=== PATIENT | male | born 1950 | race Caucasian/White ===

== ENCOUNTER 2016-03-12 13:34 | Inpatient (IN) ==
--- NOTE | 2016-03-12 14:39 | Emergency Department Note ---
Disposition Clinical Impression: Prostate cancer, UTI (urinary tract infection), Diabetes mellitus, Sepsis, History of renal stent, Anemia, Renal insufficiency, Kidney stones Disposition: Admitted As Inpatient Referrals: Starr Ramos CNP [Primary Care Provider] - Forms: ED Satisfaction Letter General Adult HPI - General Chief complaint: ED Nausea/Vomiting/Diarrhea Stated complaint: vomiting; cancer patient Time Seen by Provider: 03/12/16 14:37 Source: patient Limitations: no limitations - History of Present Illness HPI Narrative: 65-year-old male reports to the emergency department complaining of recurrent vomiting, and some diarrhea. His has had a similar illness. The patient has been diagnosed with prostate cancer, he had a recent TURP and bilateral kidney stents placed. The patient has had recurrent UTIs. He has had no vomiting of bloody or black material. There is no history of anticoagulant therapy at this time. He describes abdominal pain. There is no history of chest pain or shortness of breath or syncope. General weaknesses reported no difficulty moving the arms or legs independently, no history of headaches seizure or confusion or dysarthria. There is no history of acute back pain. There is no history of fall or injury. The patient has recently been treated for his prostate cancer medically, he has not had radiation therapy. Pain Scale: 0 - Related Data Home Medications Medication Instructions Recorded Confirmed L. Acidophilus/Pectin, [place] 1 cap PO DAILY 01/15/16 02/18/16 [Acidophilus Probiotic Capsule] Amlodipine [Norvasc] 5 mg PO DAILY 02/09/16 02/18/16 Omeprazole [PriLOSEC] 40 mg PO DAILY 02/18/16 02/18/16 Previous Rx's Medication Instructions Recorded Insulin ASPART [Novolog Flexpen] 10 unit SQ TID 30 Days 01/19/16 Insulin DETEMIR [Levemir] 30 unit SQ HS 30 Days 01/19/16 Levofloxacin [Levaquin] 500 mg PO DAILY #10 tablet 02/11/16 Metoclopramide [Reglan] 10 mg PO Q6HR PRN #60 [id number] 02/11/16 LORazepam [Ativan] 0.5 mg PO BID #60 tablet 02/18/16 Allergies Allergy/AdvReac Type Severity Reaction Status Date / Time No Known Allergies Allergy Verified 02/09/16 16:31 All systems ED: reviewed and negative except as stated. Past Medical History - Past Medical History Medical history: Reports: cancer, diabetes, hyperlipidemia, hypertension Surgical history: Reports: orthopedic, other, ureteral stent Psychiatric history: Reports: no psych history - Social History Smoking Status: Never smoker Smokeless Tobacco Status: No Alcohol use: Reports: none Drug use: Reports: none Physical Exam - General Limitations: no limitations General appearance: alert, other (Pale liane and tired-appearing male laying supine, he does follow basic commands appropriately and answers questions without evidence of confusion.) - Eye Eye exam: Present: normal appearance, PERRL, EOMI. Absent: scleral icterus, conjunctival injection - ENT ENT exam: mucous membranes dry, TM's normal bilaterally, normal external ear exam - Neck Neck exam: Present: normal inspection, full ROM, trachea midline - Respiratory Respiratory exam: Present: normal lung sounds bilaterally. Absent: respiratory distress - Abdominal Exam Abdominal exam: Present: soft. Absent: distention, guarding, rebound, rigidity , pulsatile mass Abdominal tenderness: Present: diffuse - Extremities Exam Extremities exam: Present: normal inspection, full ROM, normal capillary refill. Absent: tenderness, pedal edema, joint swelling, calf tenderness - Expanded Lower Extremity Exam Lower leg exam: Absent: Homans' sign Neurovascular/Tendon exam: Absent: motor deficit, sensory deficit, tendon deficit - Back Exam Back exam: Present: normal inspection, full ROM. Absent: tenderness, CVA tenderness (R), CVA tenderness (L), vertebral tenderness - Neurological Exam Neurological exam: Present: alert, oriented X3, CN II-XII intact. Absent: motor sensory deficit - Psychiatric Psychiatric exam: Present: normal affect, normal mood - Skin Skin exam: Present: warm, dry, intact, pallor. Absent: rash, cyanosis, diaphoresis, erythema, mottled Course Vital Signs Temperature 97.6 F 03/12/16 13:36 Pulse Rate 107 03/12/16 13:36 Respiratory Rate 20 03/12/16 13:36 Blood Pressure 135/83 03/12/16 13:36 O2 Sat by Pulse Oximetry 97 03/12/16 13:36 Temperature 97.6 F 03/12/16 13:36 Pulse Rate 88 03/12/16 18:16 Respiratory Rate 16 03/12/16 18:16 Blood Pressure 122/80 03/12/16 18:16 O2 Sat by Pulse Oximetry 97 03/12/16 18:16 Oxygen Delivery Oxygen Delivery Room Air Medical Decision Making - [facility] Narrative Medical decision making narrative: Patient has had vomiting and diarrhea, more vomiting however. Nonbloody. The patient's CT reveals bilateral urinary stents with what appears to be new left kidney hydronephrosis. His creatinine level slightly high but not markedly more elevated than baseline. The patient was tachycardic on arrival as well as tachypneic. He appears to have changes suggestive of urinary tract infection. He seems to meet sepsis criteria. IV fluids pain control measures and antiemetics were given in the ED. Antibiotics were also initiated. The patient describes new onset urinary discomfort and discoloration. He may have an element of pyelonephritis based on his symptomatology and radiographic and laboratory findings. He does have an elevated white blood cell count as well as a significantly elevated CRP. The patient has been vomiting, he may not tolerate outpatient antibiotic therapy. Based on his multiple comorbidities, acute presentation, meeting sepsis criteria, and questionable ability to tolerate by mouth antibiotics, in association with diabetes and ureteral stents , I think the patient would best be admitted to the hospital for further evaluation. I consulted with the hospitalist on-call. - Lab Data Lab results reviewed: Yes I reviewed the patient's lab results. Result diagrams: 03/12/16 14:46 03/12/16 14:46 Lab Results 03/12/16 03/12/16 03/12/16 Range/Units 14:46 14:46 14:46 WBC 14.0 H (4.3-11.1) K/mcL RBC 3.64 L (4.19-5.50) M/mcL Hgb 10.8 L (12.9-16.9) g/dL Hct 31.0 L (37.5-50.1) % MCV 85.2 D (83.0-100.0) fL MCH 29.7 (28.0-33.3) pg MCHC 34.8 (31.6-35.5) g/dL RDW 12.3 (11.5-14.5) % Plt Count 421 H (140-400) K/mcL MPV 8.7 L (9.4-12.4) fL Immature Gran % 0.8 (0-4) % Seg Neutrophils % 83.8 % Lymphocytes % 8.8 % Monocytes % 6.4 % Eosinophils % 0.0 % Basophils % 0.2 % Neutrophils # 11.8 H (1.6-8.9) K/mcL Lymphocytes # 1.2 (0.6-4.6) K/mcL Monocytes # 0.9 (0.0-1.3) K/mcL Eosinophils # 0.0 (0.0-0.6) K/mcL Basophils # 0.0 (0.0-0.2) K/mcL PT (9.4-12.1) Seconds INR APTT (26.0-36.0) Seconds Sodium 136 (136-145) mEq/L Potassium 3.3 L (3.5-4.5) mEq/L Chloride 102 (98-109) mEq/L Carbon Dioxide 19 (19-29) mEq/L BUN 22 (8-26) mg/dL Creatinine 1.91 H (0.72-1.25) mg/dL Est GFR ( Amer) 43 L (> 60) Est GFR (Non-Af Amer) 36 L (> 60) BUN/Creatinine Ratio 12 (6-26) Glucose 267 H (70-99) mg/dL Calculated Osmolality 295 (280-300) Lactic Acid 1.2 (0.5-2.2) mmol/L Calcium 8.9 (8.6-10.8) mg/dL Troponin I (0-0.03) ng/mL C-Reactive Protein (Less than 5) mg/L Lipase 34 (8-78) Units/L Beta-Hydroxybutyric Acd (0.02-0.27) mmol/L Urine Color (Yellow) Urine Clarity (Clear) Urine pH (5.0-8.0) pH Units Ur Specific [place] (1.010-1.025) Urine Protein (Neg-Trace) mg/dL Urine Glucose (UA) (Normal) mg/dL Urine Ketones (Negative) mg/dL Urine Blood (Negative) Urine Nitrite (Negative) Urine Bilirubin (Negative) Urine Urobilinogen (Normal) mg/dL Ur Leukocyte Esterase (Negative) Urine Microscopic RBC (0-3) per hpf Urine Microscopic WBC (0-3) per hpf Ur Squamous Epith Cells (None-Few) per lpf Urine Bacteria (None-Few) per hpf Urine Yeast (None Seen) per hpf Ur Culture Indicated? (NO) 03/12/16 03/12/16 03/12/16 Range/Units 14:46 14:46 14:46 WBC (4.3-11.1) K/mcL RBC (4.19-5.50) M/mcL Hgb (12.9-16.9) g/dL Hct (37.5-50.1) % MCV (83.0-100.0) fL MCH (28.0-33.3) pg MCHC (31.6-35.5) g/dL RDW (11.5-14.5) % Plt Count (140-400) K/mcL MPV (9.4-12.4) fL Immature Gran % (0-4) % Seg Neutrophils % % Lymphocytes % % Monocytes % % Eosinophils % % Basophils % % Neutrophils # (1.6-8.9) K/mcL Lymphocytes # (0.6-4.6) K/mcL Monocytes # (0.0-1.3) K/mcL Eosinophils # (0.0-0.6) K/mcL Basophils # (0.0-0.2) K/mcL PT 16.3 H (9.4-12.1) Seconds INR 1.5 APTT 36.7 H (26.0-36.0) Seconds Sodium (136-145) mEq/L Potassium (3.5-4.5) mEq/L Chloride (98-109) mEq/L Carbon Dioxide (19-29) mEq/L BUN (8-26) mg/dL Creatinine (0.72-1.25) mg/dL Est GFR ( Amer) (> 60) Est GFR (Non-Af Amer) (> 60) BUN/Creatinine Ratio (6-26) Glucose (70-99) mg/dL Calculated Osmolality (280-300) Lactic Acid (0.5-2.2) mmol/L Calcium (8.6-10.8) mg/dL Troponin I 0.01 (0-0.03) ng/mL C-Reactive Protein 212 H (Less than 5) mg/L Lipase (8-78) Units/L Beta-Hydroxybutyric Acd (0.02-0.27) mmol/L Urine Color (Yellow) Urine Clarity (Clear) Urine pH (5.0-8.0) pH Units Ur Specific [place] (1.010-1.025) Urine Protein (Neg-Trace) mg/dL Urine Glucose (UA) (Normal) mg/dL Urine Ketones (Negative) mg/dL Urine Blood (Negative) Urine Nitrite (Negative) Urine Bilirubin (Negative) Urine Urobilinogen (Normal) mg/dL Ur Leukocyte Esterase (Negative) Urine Microscopic RBC (0-3) per hpf Urine Microscopic WBC (0-3) per hpf Ur Squamous Epith Cells (None-Few) per lpf Urine Bacteria (None-Few) per hpf Urine Yeast (None Seen) per hpf Ur Culture Indicated? (NO) 03/12/16 03/12/16 Range/Units 14:46 15:22 WBC (4.3-11.1) K/mcL RBC (4.19-5.50) M/mcL Hgb (12.9-16.9) g/dL Hct (37.5-50.1) % MCV (83.0-100.0) fL MCH (28.0-33.3) pg MCHC (31.6-35.5) g/dL RDW (11.5-14.5) % Plt Count (140-400) K/mcL MPV (9.4-12.4) fL Immature Gran % (0-4) % Seg Neutrophils % % Lymphocytes % % Monocytes % % Eosinophils % % Basophils % % Neutrophils # (1.6-8.9) K/mcL Lymphocytes # (0.6-4.6) K/mcL Monocytes # (0.0-1.3) K/mcL Eosinophils # (0.0-0.6) K/mcL Basophils # (0.0-0.2) K/mcL PT (9.4-12.1) Seconds INR APTT (26.0-36.0) Seconds Sodium (136-145) mEq/L Potassium (3.5-4.5) mEq/L Chloride (98-109) mEq/L Carbon Dioxide (19-29) mEq/L BUN (8-26) mg/dL Creatinine (0.72-1.25) mg/dL Est GFR ( Amer) (> 60) Est GFR (Non-Af Amer) (> 60) BUN/Creatinine Ratio (6-26) Glucose (70-99) mg/dL Calculated Osmolality (280-300) Lactic Acid (0.5-2.2) mmol/L Calcium (8.6-10.8) mg/dL Troponin I (0-0.03) ng/mL C-Reactive Protein (Less than 5) mg/L Lipase (8-78) Units/L Beta-Hydroxybutyric Acd 0.98 H (0.02-0.27) mmol/L Urine Color Yellow (Yellow) Urine Clarity Clear (Clear) Urine pH 6.5 (5.0-8.0) pH Units Ur Specific [place] 1.025 (1.010-1.025) Urine Protein >=300 H (Neg-Trace) mg/dL Urine Glucose (UA) Normal (Normal) mg/dL Urine Ketones Negative (Negative) mg/dL Urine Blood Moderate H (Negative) Urine Nitrite Negative (Negative) Urine Bilirubin Negative (Negative) Urine Urobilinogen Normal (Normal) mg/dL Ur Leukocyte Esterase Small H (Negative) Urine Microscopic RBC 15-30 H (0-3) per hpf Urine Microscopic WBC 30-50 H (0-3) per hpf Ur Squamous Epith Cells Few (None-Few) per lpf Urine Bacteria Moderate H (None-Few) per hpf Urine Yeast Few H (None Seen) per hpf Ur Culture Indicated? YES A (NO) - Radiology Data Radiology results reviewed: Yes I reviewed the patient's radiology results.
[2016-03-12] MEDS ORDERED: 0.9 % Sodium Chloride 1,000 ML IVC ONE ×2 (14:40→17:25)
[2016-03-12] MEDS ORDERED: Ondansetron 4 MG/2 ML VIAL IVP ONE (14:49)
[2016-03-12 14:56] LABS: Basophils % 0.2 %; Hemoglobin 10.8 g/dL (12.9-16.9); Immature Granulocytes % 0.8 % (0-4); Lymphocytes # 1.2 K/mcL (0.6-4.6); Lymphocytes % 8.8 %; Mean Corpuscular HGB Conc 34.8 g/dL (31.6-35.5); Mean Corpuscular Hemoglobin 29.7 pg (28.0-33.3); Mean Platelet Volume 8.7 fL (9.4-12.4); Monocytes # 0.9 K/mcL (0.0-1.3); Monocytes % 6.4 %; Neutrophils # 11.8 K/mcL (1.6-8.9); Platelet Count 421 K/mcL (140-400); Red Blood Count 3.64 M/mcL (4.19-5.50); Red Cell Distribution Width 12.3 % (11.5-14.5); Segmented Neutrophils % 83.8 %
[2016-03-12 14:57] LABS: Mean Corpuscular Volume 85.2 fL (83.0-100.0)
[2016-03-12 15:11] LABS: Calcium 8.9 mg/dL (8.6-10.8); Potassium 3.3 mEq/L (3.5-4.5)
[2016-03-12 15:43] LABS: Bilirubin,Urine Negative (Negative); Blood,Urine Moderate (Negative); Clarity,Urine Clear (Clear); Color,Urine Yellow (Yellow); Glucose,Urine (UA) Normal (Normal); Ketones,Urine Negative (Negative); Leukocyte Esterase,Urine Small (Negative); Nitrite,Urine Negative (Negative); PH,Urine 6.5 pH Units (5.0-8.0); Protein,Urine >=300 mg/dL (Neg-Trace); Specific Gravity,Urine 1.025 (1.010-1.025); Urobilinogen,Urine Normal (Normal)
[2016-03-12 16:02] LABS: RBC,Urine 15-30 per hpf (0-3); Squamous Epithelial Cell,Urine Few per lpf (None-Few); WBC,Urine 30-50 per hpf (0-3)
[2016-03-12 16:03] LABS: Bacteria,Urine Moderate per hpf (None-Few); Yeast,Urine Few per hpf (None Seen)
[2016-03-12 16:14] LABS: Activated Partial Thrombo Time 36.7 Seconds (26.0-36.0); INR 1.5; Prothrombin Time 16.3 Seconds (9.4-12.1)
[2016-03-12] MEDS ORDERED: D5% in Water 1,000 ML IV PRN (20:32)
[2016-03-12] MEDS ORDERED: *HR* Dextrose 50 % in Water (Syg) 50 ML SYRINGE IVP PRN (20:32)
[2016-03-12] MEDS ORDERED: Dextrose Gel 15 GM PO PRN ×2 (20:32)
[2016-03-12] MEDS ORDERED: Acetaminophen 325 MG TABLET PO PRN (20:33)
[2016-03-12] MEDS ORDERED: *HR* Morphine 2 MG/ML SYRINGE IVP PRN (20:33)
[2016-03-12] MEDS ORDERED: Naloxone 0.4 MG/ML INJ IVP PRN (20:33)
--- NOTE | 2016-03-12 20:56 | Internal Med History&Physical ---
Date of Encounter: 03/12/16 Time of Encounter: 20:05 Internal Medicine - H&P: HPI Chief complaint: Weakness, diarrhea, urethral discharge, abdominal pain x 2-3 days Admitted From: Emergency Dept Plans for Post Hospital Care: Home History of present illness: Mr. Rivera is a 65 year old male 65-year-old male with medical history significant for prostate cancer with chronic urinary retention, urolithiasis s/ p bilateral ureteric stent, presents with 2-3 days of weakness, fatigue, poor appetite, he also reported abdominal pain, nausea, vomiting and diarrhea. His was sick of with a stomach bug just before that, she has since recovered. No fever. Diarrhea has since stopped. It was loose, non-bloody, non-mucoid. Abdominal pain was diffuse. reports he had some urethral discharge. General weaknesses reported, no falls, no history of headaches, seizure or confusion or no new-onset neurological symptoms. No rash. He reports a flu-like illness, however, no sore throat or cough. No CP or SOB. The patient has been diagnosed with prostate cancer, he had a recent TURP and bilateral kidney stents placed at [facility]. The patient has had recurrent UTIs. . Patient had history of acute retention with bladder spasm a couple of months ago, necessitating 5-day hospitalization. He has vague chronic lower back pain. There is no history of acute back pain. He is FULL CODE as per discussion, he nominates his , Gianna Rivera ([phone], ). Medical history: Reports: cancer, diabetes, hyperlipidemia, hypertension Surgical history: Reports: orthopedic, other, ureteral stent Psychiatric history: Reports: no psych history Smoking Status: Never smoker Smokeless Tobacco Status: No Alcohol use: Reports: none Drug use: Reports: none Family History: Father: prostate, DM2, brother: prostate cancer, daughter: COPD ROS: a 10-point ROS was performed, positives and relevant negatives are detailed , system-symptom not mentioned assumed negative unless otherwise stated. Vital Signs Temperature 97.6 F 03/12/16 13:36 Pulse Rate 107 03/12/16 13:36 Respiratory Rate 20 03/12/16 13:36 Blood Pressure 135/83 03/12/16 13:36 O2 Sat by Pulse Oximetry 97 03/12/16 13:36 Temperature 97.6 F 03/12/16 13:36 Pulse Rate 88 03/12/16 18:16 Respiratory Rate 16 03/12/16 18:16 Blood Pressure 122/80 03/12/16 18:16 O2 Sat by Pulse Oximetry 97 03/12/16 18:16 O/E: not in distress, ill looking, lethargic HEENT: Not pale, anicteric, afebrile, acyanotic, no JVD Chest: CTAB Heart/CVS: RRR, HS1/2, no murmur Abdomen: sift, non-tender, no masses [employer] ATTENDANT: AAO x 3, no gross focal neurological deficits, moves all limbs spontaneously. Skin: no active skin lesion Extremities: no normal pedal pulses, no calf tenderness, no pedal edema Lab Results 03/12/16 03/12/16 03/12/16 Range/Units 14:46 14:46 14:46 WBC 14.0 H (4.3-11.1) K/mcL RBC 3.64 L (4.19-5.50) M/mcL Hgb 10.8 L (12.9-16.9) g/dL Hct 31.0 L (37.5-50.1) % MCV 85.2 D (83.0-100.0) fL MCH 29.7 (28.0-33.3) pg MCHC 34.8 (31.6-35.5) g/dL RDW 12.3 (11.5-14.5) % Plt Count 421 H (140-400) K/mcL MPV 8.7 L (9.4-12.4) fL Immature Gran % 0.8 (0-4) % Seg Neutrophils % 83.8 % Lymphocytes % 8.8 % Monocytes % 6.4 % Eosinophils % 0.0 % Basophils % 0.2 % Neutrophils # 11.8 H (1.6-8.9) K/mcL Lymphocytes # 1.2 (0.6-4.6) K/mcL Monocytes # 0.9 (0.0-1.3) K/mcL Eosinophils # 0.0 (0.0-0.6) K/mcL Basophils # 0.0 (0.0-0.2) K/mcL PT (9.4-12.1) Seconds INR APTT (26.0-36.0) Seconds Sodium 136 (136-145) mEq/L Potassium 3.3 L (3.5-4.5) mEq/L Chloride 102 (98-109) mEq/L Carbon Dioxide 19 (19-29) mEq/L BUN 22 (8-26) mg/dL Creatinine 1.91 H (0.72-1.25) mg/dL Est GFR ( Amer) 43 L (> 60) Est GFR (Non-Af Amer) 36 L (> 60) BUN/Creatinine Ratio 12 (6-26) Glucose 267 H (70-99) mg/dL Calculated Osmolality 295 (280-300) Lactic Acid 1.2 (0.5-2.2) mmol/L Calcium 8.9 (8.6-10.8) mg/dL Troponin I (0-0.03) ng/mL C-Reactive Protein (Less than 5) mg/L Lipase 34 (8-78) Units/L Beta-Hydroxybutyric Acd (0.02-0.27) mmol/L Urine Color (Yellow) Urine Clarity (Clear) Urine pH (5.0-8.0) pH Units Ur Specific [place] (1.010-1.025) Urine Protein (Neg-Trace) mg/dL Urine Glucose (UA) (Normal) mg/dL Urine Ketones (Negative) mg/dL Urine Blood (Negative) Urine Nitrite (Negative) Urine Bilirubin (Negative) Urine Urobilinogen (Normal) mg/dL Ur Leukocyte Esterase (Negative) Urine Microscopic RBC (0-3) per hpf Urine Microscopic WBC (0-3) per hpf Ur Squamous Epith Cells (None-Few) per lpf Urine Bacteria (None-Few) per hpf Urine Yeast (None Seen) per hpf Ur Culture Indicated? (NO) 03/12/16 03/12/16 03/12/16 Range/Units 14:46 14:46 14:46 WBC (4.3-11.1) K/mcL RBC (4.19-5.50) M/mcL Hgb (12.9-16.9) g/dL Hct (37.5-50.1) % MCV (83.0-100.0) fL MCH (28.0-33.3) pg MCHC (31.6-35.5) g/dL RDW (11.5-14.5) % Plt Count (140-400) K/mcL MPV (9.4-12.4) fL Immature Gran % (0-4) % Seg Neutrophils % % Lymphocytes % % Monocytes % % Eosinophils % % Basophils % % Neutrophils # (1.6-8.9) K/mcL Lymphocytes # (0.6-4.6) K/mcL Monocytes # (0.0-1.3) K/mcL Eosinophils # (0.0-0.6) K/mcL Basophils # (0.0-0.2) K/mcL PT 16.3 H (9.4-12.1) Seconds INR 1.5 APTT 36.7 H (26.0-36.0) Seconds Sodium (136-145) mEq/L Potassium (3.5-4.5) mEq/L Chloride (98-109) mEq/L Carbon Dioxide (19-29) mEq/L BUN (8-26) mg/dL Creatinine (0.72-1.25) mg/dL Est GFR ( Amer) (> 60) Est GFR (Non-Af Amer) (> 60) BUN/Creatinine Ratio (6-26) Glucose (70-99) mg/dL Calculated Osmolality (280-300) Lactic Acid (0.5-2.2) mmol/L Calcium (8.6-10.8) mg/dL Troponin I 0.01 (0-0.03) ng/mL C-Reactive Protein 212 H (Less than 5) mg/L Lipase (8-78) Units/L Beta-Hydroxybutyric Acd (0.02-0.27) mmol/L Urine Color (Yellow) Urine Clarity (Clear) Urine pH (5.0-8.0) pH Units Ur Specific [place] (1.010-1.025) Urine Protein (Neg-Trace) mg/dL Urine Glucose (UA) (Normal) mg/dL Urine Ketones (Negative) mg/dL Urine Blood (Negative) Urine Nitrite (Negative) Urine Bilirubin (Negative) Urine Urobilinogen (Normal) mg/dL Ur Leukocyte Esterase (Negative) Urine Microscopic RBC (0-3) per hpf Urine Microscopic WBC (0-3) per hpf Ur Squamous Epith Cells (None-Few) per lpf Urine Bacteria (None-Few) per hpf Urine Yeast (None Seen) per hpf Ur Culture Indicated? (NO) 03/12/16 03/12/16 Range/Units 14:46 15:22 WBC (4.3-11.1) K/mcL RBC (4.19-5.50) M/mcL Hgb (12.9-16.9) g/dL Hct (37.5-50.1) % MCV (83.0-100.0) fL MCH (28.0-33.3) pg MCHC (31.6-35.5) g/dL RDW (11.5-14.5) % Plt Count (140-400) K/mcL MPV (9.4-12.4) fL Immature Gran % (0-4) % Seg Neutrophils % % Lymphocytes % % Monocytes % % Eosinophils % % Basophils % % Neutrophils # (1.6-8.9) K/mcL Lymphocytes # (0.6-4.6) K/mcL Monocytes # (0.0-1.3) K/mcL Eosinophils # (0.0-0.6) K/mcL Basophils # (0.0-0.2) K/mcL PT (9.4-12.1) Seconds INR APTT (26.0-36.0) Seconds Sodium (136-145) mEq/L Potassium (3.5-4.5) mEq/L Chloride (98-109) mEq/L Carbon Dioxide (19-29) mEq/L BUN (8-26) mg/dL Creatinine (0.72-1.25) mg/dL Est GFR ( Amer) (> 60) Est GFR (Non-Af Amer) (> 60) BUN/Creatinine Ratio (6-26) Glucose (70-99) mg/dL Calculated Osmolality (280-300) Lactic Acid (0.5-2.2) mmol/L Calcium (8.6-10.8) mg/dL Troponin I (0-0.03) ng/mL C-Reactive Protein (Less than 5) mg/L Lipase (8-78) Units/L Beta-Hydroxybutyric Acd 0.98 H (0.02-0.27) mmol/L Urine Color Yellow (Yellow) Urine Clarity Clear (Clear) Urine pH 6.5 (5.0-8.0) pH Units Ur Specific [place] 1.025 (1.010-1.025) Urine Protein >=300 H (Neg-Trace) mg/dL Urine Glucose (UA) Normal (Normal) mg/dL Urine Ketones Negative (Negative) mg/dL Urine Blood Moderate H (Negative) Urine Nitrite Negative (Negative) Urine Bilirubin Negative (Negative) Urine Urobilinogen Normal (Normal) mg/dL Ur Leukocyte Esterase Small H (Negative) Urine Microscopic RBC 15-30 H (0-3) per hpf Urine Microscopic WBC 30-50 H (0-3) per hpf Ur Squamous Epith Cells Few (None-Few) per lpf Urine Bacteria Moderate H (None-Few) per hpf Urine Yeast Few H (None Seen) per hpf Ur Culture Indicated? YES A (NO) IMP Complicated UTI Chronic bladder outlet obstruction due to prostate cancer Mild gastroenteritis related to sick contact () vs Reactive/spurious diarrhea related to UTI/prostate cancer complex. Dehydration Acute renal failure on CKDIII Hypokalemia. Chronic morbidities HTN HLD DM2 Chronic urinary retention Prostate cancer PLAN Admit Urine culture IVF NS + 20mEQ @ 150 mls/hr IV Ceftriaxone 1g QD Flomax 0.4mg po qd Continue other medications of chronic morbidities. Lovenox 40mg QD FOR DVT prophylaxis PT/OT Consult medical social consultant. I discussed my findings and assessment with the patient, his was also at bedside, they verbalized understanding and are agreeable to admission. Patient is admitted for evaluation of UTI, there risk of sepsis considering chronic retention. Past Med Surg Social Fam HX - Past Medical History Medical history: cancer, diabetes, hyperlipidemia, hypertension Psychiatric history: no psych history - Past Surgical History Surgical History: orthopedic, other, ureteral stent - Social History Smoking Status: Never smoker Smokeless Tobacco Status: No Alcohol use: none Drug use: none - Family History Father Living Status: Hx Family Cardiac Disorders: No Hx Family Respiratory Disorders: No Hx Family Cancer: Yes (Prostate) Hx Family GI Disorders: No Hx Family Endocrine Disorder: Yes (Diabetes) Hx Family Neuromuscular Disorders: No Hx Family Neurologic Disorders: No Hx Family HEENT Disorders: No Hx Family Autoimmune Disorders: No Brother Living Status: Still Living Hx Family Cancer: Yes (prostate cancer) Internal Medicine - H&P: Meds Insulin ASPART [Novolog Flexpen] 10 unit SQ TID 30 Days 01/19/16 [Rx] Insulin DETEMIR [Levemir] 30 unit SQ HS 30 Days 01/19/16 [Rx] Amlodipine [Norvasc] 5 mg PO DAILY 02/09/16 [History] Omeprazole [PriLOSEC] 40 mg PO DAILY 02/18/16 [History] Allergies No Known Allergies Allergy (Verified 02/09/16 16:31) All Systems PM: A 10-system review of systems was performed and is negative for pertinent findings except as documented above in the HPI. - Constitutional Vitals: Temp Pulse Resp BP Pulse Ox 101.4 F H 88 20 132/79 98 03/12/16 19:51 03/12/16 19:51 03/12/16 19:51 03/12/16 19:51 03/12/16 19:51 Internal Med - H&P Results - Labs CBC & Chem 7: 03/12/16 14:46 03/12/16 14:46
[2016-03-12 21:31] LABS: Magnesium 1.3 mg/dL (1.6-2.6); Phosphorous 3.1 mg/dL (2.3-4.7)
[2016-03-12] MEDS: 0.9 % Sodium Chloride w KCl 20 MEQ/1,000 ML MLS IVC SCH (22:13)
[2016-03-12] MEDS: Insulin DETEMIR 100 UNIT/ML X5UNITS SQ SCH (22:13)
[2016-03-12] MEDS: Insulin LISPRO 300 UNITS/3 ML VIAL SQ SCH (22:16)
[2016-03-12] MEDS: Ondansetron 4 MG/2 ML VIAL IVP PRN (23:54)
[2016-03-13] MEDS: 0.9 % Sodium Chloride w KCl 20 MEQ/1,000 ML MLS IVC SCH ×3 (05:07→21:10)
[2016-03-13 06:20] LABS: Calcium 8.3 mg/dL (8.6-10.8); Potassium 3.3 mEq/L (3.5-4.5)
[2016-03-13] MEDS: Ondansetron 4 MG/2 ML VIAL IVP PRN ×3 (08:57→21:18)
[2016-03-13] MEDS: Insulin LISPRO 300 UNITS/3 ML VIAL SQ SCH ×7 (09:02→21:11)
[2016-03-13] MEDS: amLODIPine 5 MG TABLET PO SCH (09:02)
[2016-03-13] MEDS: *HR* HYDROcodone/Acet 5/325 mg TABLET PO PRN ×2 (09:09→21:17)
--- NOTE | 2016-03-13 09:55 | Urology - Consult Note ---
Date of Encounter: 03/13/16 Time of Encounter: 09:49 - Assessment and Plan (1) Prostate cancer Current Visit: Yes Status: Acute Assessment and plan: I will check a PSA tomorrow. He received an injection of Lupron at the end of January 2016. He is scheduled to follow up with Dr. Oquendo regarding radiation therapy. (2) Renal insufficiency Current Visit: Yes Status: Acute Assessment and plan: Will consult Nephrology. Will order vancomycin and zosyn for his UTI. Will closely monitor his renal function. I will hold off on carson catheter placement as he has a lot of discomfort associated with them. (3) UTI (urinary tract infection) Current Visit: Yes Status: Acute Assessment and plan: Awaiting results of cultures. We will broaden antibiotic coverage. Qualifiers: Urinary tract infection type: acute cystitis Hematuria presence: without hematuria Qualified Code(s): N30.00 - Acute cystitis without hematuria Urology CN:HPI Consult date: 03/13/16 Reason for consult Urology: Other (prostate cancer) Requesting physician: Raul Rodney History of present illness: 65 year old man with locally advanced prostate cancer presents with concern for weakness, fatigue, and urethral discharge. He recently underwent a TURP to palliate his obstruction and he has bilateral ureteral stents. He is able to void, but he notes some decreased volume. He denies any dysuria. He denies any flank pain. He had a CT scan which showed good position of the stents. There is a TUR defect in the bladder. His most recent urine culture grew out Enterococcus. Past Med Surg Social Fam HX - Past Medical History Medical history: cancer, diabetes, hyperlipidemia, hypertension Psychiatric history: no psych history - Past Surgical History Surgical History: orthopedic, other, ureteral stent - Social History Smoking Status: Never smoker Smokeless Tobacco Status: No Alcohol use: none Drug use: none - Family History Father Living Status: Hx Family Cardiac Disorders: No Hx Family Respiratory Disorders: No Hx Family Cancer: Yes (Prostate) Hx Family GI Disorders: No Hx Family Endocrine Disorder: Yes (Diabetes) Hx Family Neuromuscular Disorders: No Hx Family Neurologic Disorders: No Hx Family HEENT Disorders: No Hx Family Autoimmune Disorders: No Brother Living Status: Still Living Hx Family Cancer: Yes (prostate cancer) Medications and Allergies Insulin ASPART [Novolog Flexpen] 10 unit SQ TID 30 Days 01/19/16 [Rx] Insulin DETEMIR [Levemir] 30 unit SQ HS 30 Days 01/19/16 [Rx] Amlodipine [Norvasc] 5 mg PO DAILY 02/09/16 [History] Omeprazole [PriLOSEC] 40 mg PO DAILY 02/18/16 [History] Allergies No Known Allergies Allergy (Verified 02/09/16 16:31) Review of Systems - Constitutional malaise, weakness, no chills, no fever(s) - EENT Nose, mouth and throat: no dizziness - Cardiovascular no chest pain - Respiratory no dyspnea - Gastrointestinal no nausea, no vomiting - Genitourinary no flank pain, no hematuria - Musculoskeletal no back pain - Integumentary no erythema, no rash - Neurological no weakness - Psychiatric no suicidal ideation - Hematologic/Lymphatic no easy bleeding - Allergic/Immunologic no wheezing Exam Initial Vital Signs Temp Pulse Resp BP Pulse Ox 97.6 F 107 20 135/83 97 03/12/16 13:36 03/12/16 13:36 03/12/16 13:36 03/12/16 13:36 03/12/16 13:36 - General physical appearance Present: well developed, well nourished, no distress - Eyes Absent: icteric - ENT Present: normal nares - Neck Present: trachea midline - Respiratory Present: normal respiratory effort - Cardiovascular Cardiovascular exam IM: RRR - Abdomen Abdomen: Present: soft Urology Results - Labs 03/12/16 14:46 03/13/16 05:38 Abnormal lab results WBC 14.0 K/mcL (4.3-11.1) H 03/12/16 14:46 RBC 3.64 M/mcL (4.19-5.50) L 03/12/16 14:46 Hgb 10.8 g/dL (12.9-16.9) L 03/12/16 14:46 Hct 31.0 % (37.5-50.1) L 03/12/16 14:46 Plt Count 421 K/mcL (140-400) H 03/12/16 14:46 MPV 8.7 fL (9.4-12.4) L 03/12/16 14:46 Neutrophils # 11.8 K/mcL (1.6-8.9) H 03/12/16 14:46 PT 16.3 Seconds (9.4-12.1) H 03/12/16 14:46 APTT 36.7 Seconds (26.0-36.0) H 03/12/16 14:46 Potassium 3.3 mEq/L (3.5-4.5) L 03/13/16 05:38 Chloride 110 mEq/L (98-109) H 03/13/16 05:38 Creatinine 1.62 mg/dL (0.72-1.25) H 03/13/16 05:38 Est GFR ( Amer) 52 (> 60) L 03/13/16 05:38 Est GFR (Non-Af Amer) 43 (> 60) L 03/13/16 05:38 Glucose 147 mg/dL (70-99) H 03/13/16 05:38 Calcium 8.3 mg/dL (8.6-10.8) L 03/13/16 05:38 Magnesium 1.3 mg/dL (1.6-2.6) L 03/12/16 21:14 C-Reactive Protein 212 mg/L (Less than 5) H 03/12/16 14:46 Beta-Hydroxybutyric Acd 0.98 mmol/L (0.02-0.27) H 03/12/16 14:46 Urine Protein >=300 mg/dL (Neg-Trace) H 03/12/16 15:22 Urine Blood Moderate (Negative) H 03/12/16 15:22 Ur Leukocyte Esterase Small (Negative) H 03/12/16 15:22 Urine Microscopic RBC 15-30 per hpf (0-3) H 03/12/16 15:22 Urine Microscopic WBC 30-50 per hpf (0-3) H 03/12/16 15:22 Urine Bacteria Moderate per hpf (None-Few) H 03/12/16 15:22 Urine Yeast Few per hpf (None Seen) H 03/12/16 15:22 Ur Culture Indicated? YES (NO) A 03/12/16 15:22 Diabetes panel 03/13/16 Range/Units 05:38 Sodium 140 (136-145) mEq/L Potassium 3.3 L (3.5-4.5) mEq/L Chloride 110 H (98-109) mEq/L Carbon Dioxide 19 (19-29) mEq/L BUN 20 (8-26) mg/dL Creatinine 1.62 H (0.72-1.25) mg/dL Glucose 147 H (70-99) mg/dL Calcium 8.3 L (8.6-10.8) mg/dL Calcium panel 03/12/16 03/13/16 Range/Units 21:14 05:38 Calcium 8.3 L (8.6-10.8) mg/dL Phosphorus 3.1 (2.3-4.7) mg/dL Pituitary panel 03/13/16 Range/Units 05:38 Sodium 140 (136-145) mEq/L Potassium 3.3 L (3.5-4.5) mEq/L Chloride 110 H (98-109) mEq/L Carbon Dioxide 19 (19-29) mEq/L BUN 20 (8-26) mg/dL Creatinine 1.62 H (0.72-1.25) mg/dL Glucose 147 H (70-99) mg/dL Calcium 8.3 L (8.6-10.8) mg/dL Adrenal panel 03/13/16 Range/Units 05:38 Sodium 140 (136-145) mEq/L Potassium 3.3 L (3.5-4.5) mEq/L Chloride 110 H (98-109) mEq/L Carbon Dioxide 19 (19-29) mEq/L BUN 20 (8-26) mg/dL Creatinine 1.62 H (0.72-1.25) mg/dL Glucose 147 H (70-99) mg/dL Calcium 8.3 L (8.6-10.8) mg/dL All other labs normal. - Imaging CT scan - abdomen: report reviewed, image reviewed CT scan - pelvis: report reviewed, image reviewed Consult Discharge Plan - Plan Referrals: Starr Ramos, [facility] [Primary Care Provider] -
[2016-03-13] MEDS ORDERED: Vancomycin 1,250 MG in D5% in Water 250 ML IVPB SCH (10:00)
[2016-03-13] MEDS ORDERED: Vancomycin 1,250 MG in D5% in Water 250 ML IVPB ONE (10:20)
[2016-03-13] MEDS: Piperacillin/Tazobactam 3.375 GM in D5% in Water (Mini-Bag+) 100 ML IVPB SCH ×2 (12:42→21:08)
--- NOTE | 2016-03-13 18:33 | Internal Med Progress Note ---
Date of Encounter: 03/13/16 Time of Encounter: 16:00 - Assessment and plan (1) UTI (urinary tract infection) Current Visit: Yes Status: Acute Assessment and plan: Abx switched this AM to broaden coverage due to prior history. Awaiting final culture results. Qualifiers: Urinary tract infection type: acute cystitis Hematuria presence: without hematuria Qualified Code(s): N30.00 - Acute cystitis without hematuria (2) Dehydration Current Visit: Yes Status: Acute Assessment and plan: Continuing IV fluid supplementation. Seems to be tolerating some PO intake at this time. (3) Hypokalemia Current Visit: Yes Status: Acute Assessment and plan: Recheck tomorrow and replace if needed. Will check magnesium in AM as well. (4) Urinary retention Current Visit: Yes Status: Acute Assessment and plan: Appreciate urology input. (5) Prostate cancer Current Visit: Yes Status: Acute (6) Hypertension Current Visit: No Status: Chronic Assessment and plan: Continue medications and monitoring of blood pressure. Qualifiers: Hypertension type: essential hypertension Qualified Code(s): I10 - Essential (primary) hypertension (7) Diabetes mellitus Current Visit: Yes Status: Chronic Qualifiers: Diabetes mellitus type: type 2 Diabetes mellitus complication status: with hyperglycemia Diabetes mellitus watermelon inspector insulin use: with watermelon inspector use Qualified Code(s): E11.65 - Type 2 diabetes mellitus with hyperglycemia; Z79.4 - technician terminal and repeater (current) use of insulin - Subjective Interval history: Mr. Rivera is currently admitted for acute UTI - complicated in nature. He remains moderate to high risk due to potential for worsening renal and infectious issues. Mr. Rivera is feeling a little better today. He still has nausea but medications help and he has been able to tolerate some PO intake. at bedside and says he does seem a little better. No CP or SOB. No change in GI issues. - Constitutional Vitals: Temp Pulse Resp BP Pulse Ox 99.4 F 72 17 108/79 100 03/13/16 07:00 03/13/16 16:00 03/13/16 16:00 03/13/16 16:00 03/13/16 16:00 General appearance: Present: A&O X 3, pleasant, answers questions appropriately - Head Head exam: Present: normocephalic - Eye Eye exam: Present: conjuntiva pink - ENT ENT exam: Present: mucous membranes moist - Respiratory Respiratory exam: Present: decreased breath sounds, CTAB - Cardiovascular Cardiovascular exam: Present: RRR. Absent: tachycardia - GI/Abdominal GI/Abdominal exam: Present: soft, tenderness, no peritoneal signs - Extremities Exam Extremities exam: Present: warm - Neurological Exam Neurological exam: Present: alert, oriented X3, no focal deficits - Skin Skin exam: Present: dry, normal color, warm. Absent: rash Internal Medicine: Result - Labs CBC & Chem 7: 03/12/16 14:46 03/13/16 05:38 Labs: BMP 03/13/16 05:38 Sodium 140 Potassium 3.3 L Chloride 110 H Carbon Dioxide 19 BUN 20 Creatinine 1.62 H Glucose 147 H Calcium 8.3 L - ABG Interpretation ABG results: PT/INR, D-dimer PT 16.3 Seconds (9.4-12.1) H 03/12/16 14:46 Consult Discharge Plan - Plan Referrals: Starr Ramos CNP [Primary Care Provider] -
[2016-03-13] MEDS: Insulin DETEMIR 100 UNIT/ML X5UNITS SQ SCH (21:18)
[2016-03-14] MEDS: Vancomycin 1,250 MG in D5% in Water 250 ML IVPB SCH (00:22)
[2016-03-14] MEDS: 0.9 % Sodium Chloride w KCl 20 MEQ/1,000 ML MLS IVC SCH ×3 (02:10→17:32)
[2016-03-14] MEDS: Ondansetron 4 MG/2 ML VIAL IVP PRN ×2 (04:58→11:43)
[2016-03-14] MEDS: Piperacillin/Tazobactam 3.375 GM in D5% in Water (Mini-Bag+) 100 ML IVPB SCH ×3 (05:00→20:46)
[2016-03-14 05:43] LABS: Hematocrit 30.9 % (37.5-50.1); Mean Corpuscular HGB Conc 32.4 g/dL (31.6-35.5); Mean Corpuscular Hemoglobin 28.7 pg (28.0-33.3); Mean Corpuscular Volume 88.8 fL (83.0-100.0); Mean Platelet Volume 8.7 fL (9.4-12.4); Platelet Count 432 K/mcL (140-400); Red Blood Count 3.48 M/mcL (4.19-5.50); Red Cell Distribution Width 12.6 % (11.5-14.5)
[2016-03-14 05:55] LABS: Albumin 1.8 g/dL (3.5-5.0); Albumin/Globulin Ratio 0.4 (1.1-2.2); Bilirubin,Total 0.4 mg/dL (0.2-1.2); Calcium 8.6 mg/dL (8.6-10.8); Globulin 4.5 g/dL (2.4-3.5); Magnesium 1.5 mg/dL (1.6-2.6); Potassium 3.6 mEq/L (3.5-4.5); Total Protein 6.3 g/dL (6.0-8.3)
--- NOTE | 2016-03-14 06:16 | Electrocardiograph Report ---
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
--- NOTE | 2016-03-14 07:45 | Urology Progress Note ---
Date of Encounter: 03/14/16 Time of Encounter: 07:43 - Assessment and Plan (1) Prostate cancer Current Visit: Yes Status: Acute Assessment and plan: PSA down to 26. Will follow. I will contact Dr. Oquendo today regarding MRI. (2) Renal insufficiency Current Visit: Yes Status: Acute Assessment and plan: Nephrology consult pending. (3) UTI (urinary tract infection) Current Visit: Yes Status: Acute Assessment and plan: Await final culture results. Continue vancomycin/zosyn for now. Qualifiers: Urinary tract infection type: acute cystitis Hematuria presence: without hematuria Qualified Code(s): N30.00 - Acute cystitis without hematuria Progress Note Narrative: 65 year old man with a history of locally advanced prostate cancer. Urine culture growing GPC. He is voiding well. Objective Initial Vital Signs Temp Pulse Resp BP Pulse Ox 97.6 F 107 20 135/83 97 03/12/16 13:36 03/12/16 13:36 03/12/16 13:36 03/12/16 13:36 03/12/16 13:36 - General physical appearance Present: well developed, well nourished, no distress - Respiratory Present: normal respiratory effort - Abdomen Present: soft - Labs 03/14/16 05:16 03/14/16 05:16 Diabetes panel 03/14/16 Range/Units 05:16 Sodium 143 (136-145) mEq/L Potassium 3.6 (3.5-4.5) mEq/L Chloride 112 H (98-109) mEq/L Carbon Dioxide 19 (19-29) mEq/L BUN 15 (8-26) mg/dL Creatinine 1.59 H (0.72-1.25) mg/dL Glucose 126 H (70-99) mg/dL Calcium 8.6 (8.6-10.8) mg/dL AST 17 (5-34) Units/L ALT 24 (0-55) Units/L Alkaline Phosphatase 82 (38-126) Units/L Albumin 1.8 L (3.5-5.0) g/dL Calcium panel 03/14/16 Range/Units 05:16 Calcium 8.6 (8.6-10.8) mg/dL Albumin 1.8 L (3.5-5.0) g/dL Pituitary panel 03/14/16 Range/Units 05:16 Sodium 143 (136-145) mEq/L Potassium 3.6 (3.5-4.5) mEq/L Chloride 112 H (98-109) mEq/L Carbon Dioxide 19 (19-29) mEq/L BUN 15 (8-26) mg/dL Creatinine 1.59 H (0.72-1.25) mg/dL Glucose 126 H (70-99) mg/dL Calcium 8.6 (8.6-10.8) mg/dL Adrenal panel 03/14/16 Range/Units 05:16 Sodium 143 (136-145) mEq/L Potassium 3.6 (3.5-4.5) mEq/L Chloride 112 H (98-109) mEq/L Carbon Dioxide 19 (19-29) mEq/L BUN 15 (8-26) mg/dL Creatinine 1.59 H (0.72-1.25) mg/dL Glucose 126 H (70-99) mg/dL Calcium 8.6 (8.6-10.8) mg/dL Total Bilirubin 0.4 (0.2-1.2) mg/dL AST 17 (5-34) Units/L ALT 24 (0-55) Units/L Alkaline Phosphatase 82 (38-126) Units/L Albumin 1.8 L (3.5-5.0) g/dL Consult Discharge Plan - Plan Referrals: Starr Ramos, [facility] [Primary Care Provider] -
[2016-03-14] MEDS: amLODIPine 5 MG TABLET PO SCH (07:55)
[2016-03-14] MEDS: Insulin LISPRO 300 UNITS/3 ML VIAL SQ SCH ×5 (07:56→17:26)
[2016-03-14] MEDS ORDERED: Aminoglycoside Consult 1 EACH MC ONE (08:24)
--- NOTE | 2016-03-14 09:56 | Internal Med Progress Note ---
<Mihai Adhikari - Last Filed: 03/14/16 17:22> Date of Encounter: 03/14/16 Time of Encounter: 08:45 - Assessment and plan (1) Urinary retention Current Visit: Yes Status: Acute Assessment and plan: -patient had urinary retention of >800ml via bladder scanner on 03/14/16. Extreme pain -Urology dilated and placed cath via bedside -Patient comfortable in bed Plan -Continue cath and follow urology recommendation. (2) UTI (urinary tract infection) Current Visit: Yes Status: Acute Assessment and plan: -Admits to superpubic pain only. -Currently on abx. Awaiting final culture results. Qualifiers: Urinary tract infection type: acute cystitis Hematuria presence: without hematuria Qualified Code(s): N30.00 - Acute cystitis without hematuria (3) Prostate cancer Current Visit: Yes Status: Acute (4) Hypertension Current Visit: No Status: Chronic Assessment and plan: Continue medications and monitoring of blood pressure. 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 Patient feels like he is doing better compared to yesterday. Still having superpubic pain. Denies shortness of breath, chest pain, dysuria. Later, in the afternoon, patient had increasing superpubic pain over a 2 hour time period that became excruciating. Phone call was made to urology and was evaluated at bedside by urology. Dilatation of the urethra with Carson placement done at bedside. He is feeling much better now and has no complaints. Looks comfortable in bed. - Constitutional Vitals: Temp Pulse Resp BP Pulse Ox 98 F 78 16 110/71 98 03/14/16 07:20 03/14/16 07:20 03/14/16 07:20 03/14/16 07:20 03/14/16 07:20 General appearance: Present: A&O X 3, pleasant, answers questions appropriately - Head Head exam: Present: atraumatic, normocephalic - Neck Neck exam general surgery: Present: supple, trachea midline. Absent: lymphadenopathy - Respiratory Respiratory exam: Present: CTAB. Absent: accessory muscle use, rales, rhonchi, wheezes - Cardiovascular Cardiovascular exam: Present: RRR, +S1, +S2. Absent: diastolic murmur, gallop, rubs, systolic murmur - GI/Abdominal GI/Abdominal exam: Present: normal bowel sounds, soft, no peritoneal signs. Absent: distended, tenderness Additional comments: superpubic tenderness. - Neurological Exam Neurological exam: Present: CN II-XII intact, oriented X3, no focal deficits. Absent: pronater drift, facial droop, speech deficit - Psychiatric Psychiatric exam: Present: normal affect, normal mood Internal Medicine: Result - Labs CBC & Chem 7: 03/14/16 05:16 03/14/16 05:16 Labs: Short CBC 03/14/16 Range/Units 05:16 WBC 12.3 H (4.3-11.1) K/mcL Hgb 10.0 L (12.9-16.9) g/dL Hct 30.9 L (37.5-50.1) % Plt Count 432 H (140-400) K/mcL BMP 03/14/16 05:16 Sodium 143 Potassium 3.6 Chloride 112 H Carbon Dioxide 19 BUN 15 Creatinine 1.59 H Glucose 126 H Calcium 8.6 Liver Function 03/14/16 Range/Units 05:16 Total Bilirubin 0.4 (0.2-1.2) mg/dL AST 17 (5-34) Units/L ALT 24 (0-55) Units/L Alkaline Phosphatase 82 (38-126) Units/L Albumin 1.8 L (3.5-5.0) g/dL - ABG Interpretation ABG results: PT/INR, D-dimer PT 16.3 Seconds (9.4-12.1) H 03/12/16 14:46 Consult Discharge Plan - Plan Referrals: Starr Ramos, [facility] [Primary Care Provider] - <Raul Rodney - Last Filed: 03/14/16 18:37> Date of Encounter: 03/14/16 - Assessment and plan (1) UTI (urinary tract infection) Current Visit: Yes Status: Acute Qualifiers: Urinary tract infection type: acute cystitis Hematuria presence: without hematuria Qualified Code(s): N30.00 - Acute cystitis without hematuria (2) Dehydration Current Visit: Yes Status: Acute (3) Hypokalemia Current Visit: Yes Status: Acute (4) Urinary retention Current Visit: Yes Status: Acute (5) Prostate cancer Current Visit: Yes Status: Acute (6) Hypertension Current Visit: No Status: Chronic Qualifiers: Hypertension type: essential hypertension Qualified Code(s): I10 - Essential (primary) hypertension (7) Diabetes mellitus Current Visit: Yes Status: Chronic Qualifiers: Diabetes mellitus type: type 2 Diabetes mellitus complication status: with hyperglycemia Diabetes mellitus petroleum terminal plant operator insulin use: with petroleum terminal plant operator use Qualified Code(s): E11.65 - Type 2 diabetes mellitus with hyperglycemia; Z79.4 - assistant terminal manager (current) use of insulin - Constitutional Vitals: Temp Pulse Resp BP Pulse Ox 99.7 F H 90 16 128/77 96 03/14/16 15:48 03/14/16 15:48 03/14/16 15:48 03/14/16 15:48 03/14/16 15:48 Internal Medicine: Result - Labs CBC & Chem 7: 03/14/16 05:16 03/14/16 05:16 Labs: Short CBC 03/14/16 Range/Units 05:16 WBC 12.3 H (4.3-11.1) K/mcL Hgb 10.0 L (12.9-16.9) g/dL Hct 30.9 L (37.5-50.1) % Plt Count 432 H (140-400) K/mcL BMP 03/14/16 05:16 Sodium 143 Potassium 3.6 Chloride 112 H Carbon Dioxide 19 BUN 15 Creatinine 1.59 H Glucose 126 H Calcium 8.6 Liver Function 03/14/16 Range/Units 05:16 Total Bilirubin 0.4 (0.2-1.2) mg/dL AST 17 (5-34) Units/L ALT 24 (0-55) Units/L Alkaline Phosphatase 82 (38-126) Units/L Albumin 1.8 L (3.5-5.0) g/dL - ABG Interpretation ABG results: PT/INR, D-dimer PT 16.3 Seconds (9.4-12.1) H 03/12/16 14:46 - Attending Attestation I examined this patient and my medical decision-making was reviewed with the Resident Physician. I agree with the documented findings, disposition and treatment plan as described except to the extent set forth below. Mr. Rivera is currently admitted for acute complicated UTI and dehydration related to n/v. He remains moderate risk due to potential worsening infection and urinary issues. Mr. Rivera had acute urinary retention today and required dilation and carson placement. He had been doing much better and was beginning to eat some. No new issues overnight. Exam Alert. Uncomfortable with urinary retention. Heart reg no wheeze No edema I/P 1. Acute urinary retention - carson placed 2. UTI - on abx 3. Hx prostate cancer 4. Dehydration Further diagnoses and plan as above.
--- NOTE | 2016-03-14 12:00 | Nephrology Consult Note ---
Date of Encounter: 03/14/16 Time of Encounter: 11:30 Assessment and Plan (1) Renal insufficiency Current Visit: Yes Status: Acute CKD in setting of HTN, DM, past NSAID use, hx renal calculi, BPH/advanced prostate cancer with urinary retention with bilateral ureteral stents, chronic UTI's. Renal fct currently at baseline. On Vanco and Zosyn. Will continue to follow. History of Present Illness - Reason for Consult Chronic Kidney Disease - History of Present Illness Mr. Rivera is a 65 year old male with PMH advanced prostate cancer with chronic urinary retention, urolithiasis and S/P bilateral ureteral stents. Recent TURP to palliate obstruction.Also recently started on Lupron injection. Mr. Rivera states one week ago had "flu bug" with decreased oral intake and one day of diarrhea. He presented with weakness, fatigue and urethral discharge. Preliminary urine culture shows gm pos cocci on Vanco and Zosyn. CT showed stents in good position. Mr. Rivera has HX DM II, HTN that was poorly controlled, renal calculi and past NSAID use. Creat in 2013 0.84. Creat Dec 2015 1.53. Creat 1.49 following Dec hopital stay for APOORVA and urinary retention/UTI Past Med Surg Social Fam HX - Past Medical History Medical history: cancer, diabetes, hyperlipidemia, hypertension Psychiatric history: no psych history - Past Surgical History Surgical History: orthopedic, other, ureteral stent - Social History Smoking Status: Never smoker Smokeless Tobacco Status: No Alcohol use: none Drug use: none - Family History Father Living Status: Hx Family Cardiac Disorders: No Hx Family Respiratory Disorders: No Hx Family Cancer: Yes (Prostate) Hx Family GI Disorders: No Hx Family Endocrine Disorder: Yes (Diabetes) Hx Family Neuromuscular Disorders: No Hx Family Neurologic Disorders: No Hx Family HEENT Disorders: No Hx Family Autoimmune Disorders: No Brother Living Status: Still Living Hx Family Cancer: Yes (prostate cancer) Medications and Allergies Insulin ASPART [Novolog Flexpen] 10 unit SQ TID 30 Days 01/19/16 [Rx] Insulin DETEMIR [Levemir] 30 unit SQ HS 30 Days 01/19/16 [Rx] Omeprazole [PriLOSEC] 40 mg PO DAILY 02/18/16 [History] Amlodipine Besylate [Amlodipine Besylate] 10 mg PO DAILY 03/13/16 [History] Allergies No Known Allergies Allergy (Verified 03/13/16 10:33) Review of Systems All Systems: reviewed and no additional remarkable complaints except as stated Exam - Vital Signs Vital signs: Initial Vital Signs Temp Pulse Resp BP Pulse Ox 97.6 F 107 20 135/83 97 03/12/16 13:36 03/12/16 13:36 03/12/16 13:36 03/12/16 13:36 03/12/16 13:36 Vital Signs - Last 8 Hours Temp Pulse Resp BP Pulse Ox 03/14/16 07:20 98 F 78 16 110/71 98 03/14/16 04:12 97.8 F 86 16 127/83 99 Intake and Output 03/13/16 03/14/16 03/14/16 23:59 07:59 15:59 Intake Total 1100 / 1100 1100 / 1100 1360 / 1360 Output Total 2069 / 2069 1150 / 1150 280 / 280 Balance -970 / -970 -50 / -50 1080 / 1080 Intake: IV Fluids 1100 / 1100 1100 / 1100 1000 / 1000 KCl 20 mEq in 0.9% Sodium 1000 / 1000 1000 / 1000 1000 / 1000 Chloride 20 meq In 1,000 ml @ 150 mls/hr IVC . Q6H40M RAUL Rx#:[id number] Zosyn 3.375 GM In 100 / 100 100 / 100 Dextrose 5% (Minibag+) 100 ML 100 ML @ 25 mls/hr IVPB Q8H RAUL Rx#: [id number] Oral 0 / 0 360 / 360 Output: Urine 2069 / 2069 1150 / 1150 280 / 280 Other: Meal Breakfast Percent of Meal Consumed 50% Weight 90 kg Blood Glucose* 89 113 Patient Weight 03/14/16 23:59 Weight 90 kg - General Appearance General appearance: well-developed, well-nourished, appears started age EENT: mucous membranes moist Neck: no JVD, no carotid bruit Respiratory: clear Cardiology: no edema, regular rate, regular rhythm Gastrointestinal: normoactive bowel sounds, no tenderness Integumentary: warm and dry Neurologic: alert and oriented x3 Psychiatric: mood/affect appropriate, cooperative Results - Lab Results 03/14/16 05:16 03/14/16 05:16 Most recent lab results Calcium 8.6 mg/dL (8.6-10.8) 03/14/16 05:16 Phosphorus 3.1 mg/dL (2.3-4.7) 03/12/16 21:14 Magnesium 1.5 mg/dL (1.6-2.6) L 03/14/16 05:16 Consult Discharge Plan - Plan Referrals: Starr Ramos CNP [Primary Care Provider] -
[2016-03-14] MEDS ORDERED: Lidocaine (Urojet) 5 ML JEL.PF.APP MM ONE (14:03)
[2016-03-14] MEDS ORDERED: Lidocaine Jelly 6 ml Syringe MM ONE (14:15)
[2016-03-14] MEDS ORDERED: *HR* Morphine 2 MG/ML SYRINGE IVP ONE (14:25)
--- NOTE | 2016-03-14 15:24 | Event Note ---
Date of Encounter: 03/14/16 Time of Encounter: 15:22 I was called to the bedside as Mr. Rivera could not urinate. Under sterile conditions I attempted to place a catheter which was not successful. 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 In trying to place a catheter a pinhole opening was created and he was able to urinate so. I then consented him for a urethral dilation with catheter placement. He was informed of the risks of the procedure including but not limited to bleeding, infection, injury to other structures, need for procedures, and recurrence. He was want to proceed. A zip wire was then placed on the urethra and appeared to pass into the bladder. I then sequentially dilated the meatus using the Jose followers up to 18 Nigerian. A 16 Nigerian Warren catheter was then placed over the wire into the bladder. Clear urine returned. 10 mL was instilled into the balloon. He tolerated the procedure well.
[2016-03-14] MEDS: *HR* HYDROcodone/Acet 5/325 mg TABLET PO PRN (20:46)
[2016-03-14] MEDS: Insulin DETEMIR 100 UNIT/ML X5UNITS SQ SCH (20:47)
[2016-03-15] MEDS: Vancomycin 1,250 MG in D5% in Water 250 ML IVPB SCH (01:34)
[2016-03-15] MEDS: 0.9 % Sodium Chloride w KCl 20 MEQ/1,000 ML MLS IVC SCH ×3 (01:38→20:05)
[2016-03-15] MEDS: Insulin LISPRO 300 UNITS/3 ML VIAL SQ SCH ×8 (01:40→21:38)
[2016-03-15] MEDS: *HR* HYDROcodone/Acet 5/325 mg TABLET PO PRN ×3 (03:15→21:36)
[2016-03-15] MEDS: Piperacillin/Tazobactam 3.375 GM in D5% in Water (Mini-Bag+) 100 ML IVPB SCH ×2 (03:15→12:18)
[2016-03-15 05:47] LABS: Hematocrit 26.9 % (37.5-50.1); Hemoglobin 8.6 g/dL (12.9-16.9); Immature Granulocytes % 1.3 % (0-4); Lymphocytes % 20.5 %; Mean Corpuscular Hemoglobin 28.9 pg (28.0-33.3); Mean Corpuscular Volume 90.3 fL (83.0-100.0); Mean Platelet Volume 8.6 fL (9.4-12.4); Platelet Count 414 K/mcL (140-400); Red Blood Count 2.98 M/mcL (4.19-5.50); Red Cell Distribution Width 12.7 % (11.5-14.5); Segmented Neutrophils % 69.9 %
[2016-03-15 05:48] LABS: Basophils % 0.4 %; Eosinophils # 0.3 K/mcL (0.0-0.6); Eosinophils % 2.9 %; Lymphocytes # 2.3 K/mcL (0.6-4.6); Monocytes # 0.6 K/mcL (0.0-1.3); Neutrophils # 7.7 K/mcL (1.6-8.9)
[2016-03-15 06:04] LABS: Calcium 8.3 mg/dL (8.6-10.8); Potassium 3.4 mEq/L (3.5-4.5)
[2016-03-15] MEDS: amLODIPine 5 MG TABLET PO SCH (09:31)
--- NOTE | 2016-03-15 10:31 | Internal Med Progress Note ---
<Chidi Knott - Last Filed: 03/15/16 18:03> Date of Encounter: 03/15/16 - Constitutional Vitals: Temp Pulse Resp BP Pulse Ox 98.4 F 84 18 124/80 97 03/15/16 16:21 03/15/16 16:21 03/15/16 16:21 03/15/16 16:21 03/15/16 16:21 Internal Medicine: Result - Labs CBC & Chem 7: 03/15/16 05:24 03/15/16 05:24 Labs: Short CBC 03/15/16 Range/Units 05:24 WBC 11.0 (4.3-11.1) K/mcL Hgb 8.6 L (12.9-16.9) g/dL Hct 26.9 L (37.5-50.1) % Plt Count 414 H (140-400) K/mcL Neutrophils # 7.7 (1.6-8.9) K/mcL BMP 03/15/16 05:24 Sodium 142 Potassium 3.4 L Chloride 113 H Carbon Dioxide 20 BUN 10 Creatinine 1.45 H Glucose 76 Calcium 8.3 L - ABG Interpretation ABG results: PT/INR, D-dimer PT 16.3 Seconds (9.4-12.1) H 03/12/16 14:46 Consult Discharge Plan - Plan Referrals: Starr Ramos, ENGINE BUILDER [Primary Care Provider] - - Attending Attestation I examined this patient and my medical decision-making was reviewed with the GREEN CHAIN OPERATOR/PA/Advanced Practice Nurse/Resident Physician. I agree with the documented findings, disposition and treatment plan as described except to the extent set forth below. <Mihai Adhikari - Last Filed: 03/15/16 22:04> Date of Encounter: 03/15/16 Time of Encounter: 09:15 - Assessment and plan (1) Urinary retention Current Visit: Yes Status: Acute Assessment and plan: -patient had urinary retention of >800ml via bladder scanner on 03/14/16. Extreme pain -Urology dilated and placed cath via bedside -Patient comfortable in bed Plan -Continue cath and follow urology recommendation. (2) UTI (urinary tract infection) Current Visit: Yes Status: Acute Assessment and plan: -Admits to superpubic pain only. -Currently on abx. Plan -Switch antibiotics based on the sensitivity of the culture. -Possible discharge in 2 days, based on the patient's comfort level and urology recommendation Qualifiers: Urinary tract infection type: acute cystitis Hematuria presence: without hematuria Qualified Code(s): N30.00 - Acute cystitis without hematuria (3) Prostate cancer Current Visit: Yes Status: Acute (4) Hypertension Current Visit: No Status: Chronic Assessment and plan: Continue medications and monitoring of blood pressure. Qualifiers: Hypertension type: essential hypertension Qualified Code(s): I10 - Essential (primary) hypertension (5) Diabetes mellitus Current Visit: Yes Status: Chronic Qualifiers: Diabetes mellitus type: type 2 Diabetes mellitus complication status: with hyperglycemia Diabetes mellitus virtual customer assistant insulin use: with virtual customer assistant use Qualified Code(s): E11.65 - Type 2 diabetes mellitus with hyperglycemia; Z79.4 - service desk associate (current) use of insulin - Time Spent With Patient 25 - 35 minutes - Subjective Interval history: Patient feels much better today compared to yesterday. His suprapubic pain has decreased drastically. Warren in place. Admits to mild discomfort from Warren. He is resting comfortably in bed. Has no questions or concerns at this time. - Constitutional Vitals: Temp Pulse Resp BP Pulse Ox 97.8 F 74 18 130/74 100 03/15/16 07:35 03/15/16 07:35 03/15/16 07:35 03/15/16 07:35 03/15/16 09:40 General appearance: Present: A&O X 3, pleasant, answers questions appropriately - Respiratory Respiratory exam: Present: CTAB. Absent: accessory muscle use, rales, rhonchi, wheezes - Cardiovascular Cardiovascular exam: Present: RRR, +S1, +S2. Absent: diastolic murmur, gallop, rubs, systolic murmur - GI/Abdominal GI/Abdominal exam: Present: normal bowel sounds, soft, tenderness (Suprapubic) - Additional comments: Warren in place, light yellow urine. - Neurological Exam Neurological exam: Present: CN II-XII intact, oriented X3, no focal deficits, pronater drift. Absent: facial droop, speech deficit - Psychiatric Psychiatric exam: Present: normal affect, normal mood Internal Medicine: Result - Labs CBC & Chem 7: 03/15/16 05:24 03/15/16 05:24 Labs: Short CBC 03/15/16 Range/Units 05:24 WBC 11.0 (4.3-11.1) K/mcL Hgb 8.6 L (12.9-16.9) g/dL Hct 26.9 L (37.5-50.1) % Plt Count 414 H (140-400) K/mcL Neutrophils # 7.7 (1.6-8.9) K/mcL BMP 03/15/16 05:24 Sodium 142 Potassium 3.4 L Chloride 113 H Carbon Dioxide 20 BUN 10 Creatinine 1.45 H Glucose 76 Calcium 8.3 L - ABG Interpretation ABG results: PT/INR, D-dimer PT 16.3 Seconds (9.4-12.1) H 03/12/16 14:46
--- NOTE | 2016-03-15 10:41 | Urology Progress Note ---
Date of Encounter: 03/15/16 Time of Encounter: 10:39 - Assessment and Plan (1) Prostate cancer Current Visit: Yes Status: Acute Assessment and plan: Discussed with Dr. Oquendo. He advises to hold off on MRI at this time. Await to see if Lupron allows for regression of CaP. If PSA remains stable/low , consideration for local therapy could be offered in 3 months. (2) Renal insufficiency Current Visit: Yes Status: Acute Assessment and plan: Appreciate nephrology recs. (3) UTI (urinary tract infection) Current Visit: Yes Status: Acute Assessment and plan: Consider transitioning to amoxicillin or augmentin. Qualifiers: Urinary tract infection type: acute cystitis Hematuria presence: without hematuria Qualified Code(s): N30.00 - Acute cystitis without hematuria (4) Meatal stenosis Current Visit: Yes Status: Acute Assessment and plan: Keep catheter indwelling x 1 week. He can follow up in urology clinic in 1 week for a voiding trial. 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 He had a urethral dilation yesterday. Catheter is draining well. Objective Initial Vital Signs Temp Pulse Resp BP Pulse Ox 97.6 F 107 20 135/83 97 03/12/16 13:36 03/12/16 13:36 03/12/16 13:36 03/12/16 13:36 03/12/16 13:36 - General physical appearance Present: well developed, well nourished, no distress - Respiratory Present: normal respiratory effort - Abdomen Present: soft - Genitourinary Present: normal penis with no external lesions Urine Appearance: Present: Clear - Labs 03/15/16 05:24 03/15/16 05:24 Diabetes panel 03/15/16 Range/Units 05:24 Sodium 142 (136-145) mEq/L Potassium 3.4 L (3.5-4.5) mEq/L Chloride 113 H (98-109) mEq/L Carbon Dioxide 20 (19-29) mEq/L BUN 10 (8-26) mg/dL Creatinine 1.45 H (0.72-1.25) mg/dL Glucose 76 (70-99) mg/dL Calcium 8.3 L (8.6-10.8) mg/dL Calcium panel 03/15/16 Range/Units 05:24 Calcium 8.3 L (8.6-10.8) mg/dL Pituitary panel 03/15/16 Range/Units 05:24 Sodium 142 (136-145) mEq/L Potassium 3.4 L (3.5-4.5) mEq/L Chloride 113 H (98-109) mEq/L Carbon Dioxide 20 (19-29) mEq/L BUN 10 (8-26) mg/dL Creatinine 1.45 H (0.72-1.25) mg/dL Glucose 76 (70-99) mg/dL Calcium 8.3 L (8.6-10.8) mg/dL Adrenal panel 03/15/16 Range/Units 05:24 Sodium 142 (136-145) mEq/L Potassium 3.4 L (3.5-4.5) mEq/L Chloride 113 H (98-109) mEq/L Carbon Dioxide 20 (19-29) mEq/L BUN 10 (8-26) mg/dL Creatinine 1.45 H (0.72-1.25) mg/dL Glucose 76 (70-99) mg/dL Calcium 8.3 L (8.6-10.8) mg/dL Consult Discharge Plan - Plan Referrals: Starr Ramos, SUPERVISOR CIGAR MAKING MACHINE [Primary Care Provider] -
--- NOTE | 2016-03-15 12:23 | Nephrology Progress Note ---
Date of Encounter: 03/15/16 Time of Encounter: 12:15 - Assessment and Plan (1) Renal insufficiency Current Visit: Yes Status: Acute Renal fct improving, may be at his baseline. Excellent urine output. Will continue to follow. Subjective Interval history: Sitting up in bed watching tv. Family at bedside. States feeling much better sine carson cath placement. Objective - Vital Signs Vital signs: Vital Signs Temp Pulse Resp BP Pulse Ox 03/15/16 11:23 99.8 F H 102 18 101/71 95 03/15/16 09:40 100 03/15/16 07:35 97.8 F 74 18 130/74 100 03/15/16 05:07 97.6 F 64 18 124/63 100 03/15/16 00:37 97.5 F L 64 17 121/77 100 03/14/16 20:36 98.3 F 82 16 121/72 98 03/14/16 15:48 99.7 F H 90 16 128/77 96 Intake and Output 03/14/16 03/15/16 03/15/16 23:59 07:59 15:59 Intake Total 240 / 240 1350 / 1350 1480 / 1480 Output Total 2049 3400 / 3400 Balance -1810 / -1810 -2049 / -0 1480 / 1480 Intake: IV Fluids 1350 / 1350 1000 / 1000 KCl 20 mEq in 0.9% Sodium 1000 / 1000 1000 / 1000 Chloride 20 meq In 1,000 ml @ 150 mls/hr IVC . Q6H40M [facility] Rx#:[id number] Zosyn 3.375 GM In 100 / 100 Dextrose 5% (Minibag+) 100 ML 100 ML @ 25 mls/hr IVPB Q8H [facility] Rx#: [id number] Vancocin 1,250 MG In 250 / 250 Dextrose 5% 250 ML @ 166. 667 mls/hr IVPB Q24H RAUL Rx#:[id number] Oral 240 / 240 480 / 480 Output: Catheter 2049 3400 / 3400 Other: Meal Dinner Breakfast Percent of Meal Consumed 50% 100% Blood Glucose* 106 77 182 - General Appearance General appearance: Present: well-developed, well-nourished, appears started age EENT: Present: mucous membranes moist Neck: Present: no JVD Respiratory: Present: clear Cardiology: Present: no edema, regular rate, regular rhythm Gastrointestinal: Present: normoactive bowel sounds, no tenderness Integumentary: Present: warm and dry Neurologic: Present: alert and oriented x3 Psychiatric: Present: mood/affect appropriate, cooperative - Lab 03/15/16 05:24 03/15/16 05:24 Most recent lab results Calcium 8.3 mg/dL (8.6-10.8) L 03/15/16 05:24 Phosphorus 3.1 mg/dL (2.3-4.7) 03/12/16 21:14 Magnesium 1.5 mg/dL (1.6-2.6) L 03/14/16 05:16 Consult Discharge Plan - Plan Referrals: Starr Ramos, BUSINESS ACCOUNT SPECIALIST [Primary Care Provider] -
[2016-03-15] MEDS: Ampicillin 2 GM in 0.9 % Sodium Chloride Mini Bag 100 ML IVPB SCH (21:36)
[2016-03-15] MEDS: Insulin DETEMIR 100 UNIT/ML X5UNITS SQ SCH (21:36)
[2016-03-16] MEDS: Ampicillin 2 GM in 0.9 % Sodium Chloride Mini Bag 100 ML IVPB SCH ×4 (02:09→22:31)
[2016-03-16] MEDS: *HR* HYDROcodone/Acet 5/325 mg TABLET PO PRN ×3 (02:12→15:57)
[2016-03-16] MEDS: 0.9 % Sodium Chloride w KCl 20 MEQ/1,000 ML MLS IVC SCH ×3 (03:55→18:32)
[2016-03-16 06:00] LABS: Basophils % 0.3 %; Eosinophils # 0.3 K/mcL (0.0-0.6); Eosinophils % 3.2 %; Hemoglobin 9.2 g/dL (12.9-16.9); Immature Granulocytes % 0.8 % (0-4); Lymphocytes # 1.8 K/mcL (0.6-4.6); Mean Corpuscular HGB Conc 31.7 g/dL (31.6-35.5); Mean Corpuscular Hemoglobin 28.6 pg (28.0-33.3); Mean Corpuscular Volume 90.1 fL (83.0-100.0); Mean Platelet Volume 8.7 fL (9.4-12.4); Monocytes # 0.5 K/mcL (0.0-1.3); Neutrophils # 7.7 K/mcL (1.6-8.9); Platelet Count 452 K/mcL (140-400); Red Blood Count 3.22 M/mcL (4.19-5.50); Red Cell Distribution Width 12.7 % (11.5-14.5); Segmented Neutrophils % 73.7 %
[2016-03-16 06:22] LABS: Calcium 8.2 mg/dL (8.6-10.8); Potassium 3.9 mEq/L (3.5-4.5)
[2016-03-16] MEDS: Insulin LISPRO 300 UNITS/3 ML VIAL SQ SCH ×8 (08:41→22:33)
--- NOTE | 2016-03-16 09:03 | Nephrology Progress Note ---
Date of Encounter: 03/16/16 Time of Encounter: 08:35 - Assessment and Plan (1) Renal insufficiency Current Visit: Yes Status: Acute Renal fct stable, may be at his baseline. Excellent urine output. Will continue to follow. Subjective Interval history: Sitting up in bed, eating breakfast. at bedside. States feeling much better. Objective - Vital Signs Vital signs: Vital Signs Temp Pulse Resp BP Pulse Ox 03/16/16 07:21 97.3 F L 78 16 119/76 98 03/16/16 05:16 98.2 F 79 18 117/81 98 03/15/16 21:45 96 03/15/16 19:26 97.6 F 71 19 117/69 96 03/15/16 16:21 98.4 F 84 18 124/80 97 03/15/16 11:23 99.8 F H 102 18 101/71 95 03/15/16 09:40 100 Intake and Output 03/15/16 03/16/16 03/16/16 23:59 07:59 15:59 Intake Total 1580 / 1580 1500 / 1500 Output Total 575 / 575 3000 / 3000 Balance 1005 / 1005 -1500 / -1500 Intake: IV Fluids 1100 / 1100 1100 / 1100 KCl 20 mEq in 0.9% Sodium 1000 / 1000 1000 / 1000 Chloride 20 meq In 1,000 ml @ 150 mls/hr IVC . Q6H40M [facility] Rx#:[id number] Ampicillin 2 GM In 0.9 % 100 / 100 100 / 100 Sodium Chloride (Mini-Bag +) 100 ML @ 200 mls/hr IVPB Q6H [facility] Rx#: [id number] Oral 480 / 480 400 / 400 Output: Straight Cath 575 / 575 Catheter 3000 / 3000 Other: Weight 92.7 kg Blood Glucose* 140 76 Patient Weight 03/16/16 23:59 Weight 92.7 kg - General Appearance General appearance: Present: well-developed, well-nourished, appears started age EENT: Present: mucous membranes moist Neck: Present: no JVD Respiratory: Present: clear Cardiology: Present: no edema, regular rate, regular rhythm Gastrointestinal: Present: normoactive bowel sounds, no tenderness Integumentary: Present: warm and dry Neurologic: Present: alert and oriented x3 Psychiatric: Present: mood/affect appropriate, cooperative - Lab 03/16/16 05:11 03/16/16 05:11 Most recent lab results Calcium 8.2 mg/dL (8.6-10.8) L 03/16/16 05:11 Phosphorus 3.1 mg/dL (2.3-4.7) 03/12/16 21:14 Magnesium 1.5 mg/dL (1.6-2.6) L 03/14/16 05:16 Consult Discharge Plan - Plan Referrals: Starr Ramos, DOUGHNUT MAKER [Primary Care Provider] -
--- NOTE | 2016-03-16 10:13 | Discharge Summary ---
<Mihai Adhikari - Last Filed: 03/17/16 13:10> Date of Encounter: 03/17/16 - Discharge Diagnosis (1) Urinary retention Status: Acute (2) UTI (urinary tract infection) Status: Acute Qualifiers: Urinary tract infection type: acute cystitis Hematuria presence: without hematuria Qualified Code(s): N30.00 - Acute cystitis without hematuria (3) Prostate cancer Status: Acute (4) Hypertension Status: Chronic Qualifiers: Hypertension type: essential hypertension Qualified Code(s): I10 - Essential (primary) hypertension (5) Diabetes mellitus Status: Chronic Qualifiers: Diabetes mellitus type: type 2 Diabetes mellitus complication status: with hyperglycemia Diabetes mellitus correction insulin use: with correction use Qualified Code(s): E11.65 - Type 2 diabetes mellitus with hyperglycemia; Z79.4 - buttermaker helper (current) use of insulin - Discharge Medications Prescriptions: Ciprofloxacin [Cipro] 500 mg PO BID 5 Days Fluconazole [Diflucan] 200 mg PO DAILY 14 Days Home Medications: Insulin ASPART [Novolog Flexpen] 10 unit SQ TID 30 Days 01/19/16 [Rx] Insulin DETEMIR [Levemir] 30 unit SQ HS 30 Days 01/19/16 [Rx] Omeprazole [PriLOSEC] 40 mg PO DAILY 02/18/16 [History] Amlodipine Besylate 10 mg PO DAILY 03/13/16 [History] Ciprofloxacin [Cipro] 500 mg PO BID 5 Days 03/17/16 [Rx] Fluconazole [Diflucan] 200 mg PO DAILY 14 Days 03/17/16 [Rx] Allergies/Adverse Reactions: Allergies No Known Allergies Allergy (Verified 03/13/16 10:33) Date of admission: 03/12/16 20:33 Primary care physician: YANET Jordan Consults: 03/12/16 22:04 Consult to Urology [CONS] Routine Consulting Provider: [facility] Reason for Consult: complicated UTI, chronic urinary retention, hx of ca prostate, urolithiasis s/p bilateral ureteral stents Call Completed: No 03/13/16 10:02 Consult to Nephrology [CONS] Routine Consulting Provider: [facility] Reason for Consult: Patient known to service. Please assess renal function, coordination of care Call Completed: Yes Discharging clinician: Mihai Adhikari Anticipated date of discharge: 03/17/16 - Patient Status Disposition: Home, Self-Care Condition: Good Functional capacity at discharge: independent ambulation Overall status at discharge: patient is progressing back to baseline - Discharge Instructions Instructions: Ciprofloxacin (By mouth), Amoxicillin/Clavulanate Potassium (By mouth), Fluconazole (By mouth), Urinary Retention in Men (GEN), Urinary Tract Infection in Men (DC), Prostate Cancer (DC), Prostate Cancer (GEN), Warren Catheter Placement and Care (DC), Warren Catheter Placement and Care (GEN), Diabetes Mellitus Type 2 in Adults (DC), Sepsis (DC), Urinary Leg Bag (GEN), Prostate Cancer, Fruit Room Hand (GEN) Follow Up With: Dominick Ibarra MD [Partnered Physician] - 03/29/16 3:30 pm Starr Ramos CNP [Primary Care Provider] - (please go see your pcp in 1 week ) Additional Instructions: As discussed in the room, please followup with upcoming urology, nephrology and PCP appointments. If you have new or worsening symptoms, including but not limited to-pain, blood, puss coming from the catheter, please contact your PCP immediately or go to your nearest ED. - Diet and Activity Activity: increase activity as tolerated Diet: advance to your usual diet Interval History: Patient is doing well medically. Still having mild superpubic pain on palpation. Denies any dysuria or flank pain Is ambulatory. Urine is clear and yellow, no blood. Hospital course: Mr. Rivera is a 65 year old male - Time Spent with Patient Total time spent providing and/or coordinating discharge services: Greater than 30 minutes - Constitutional Vitals: Temp Pulse Resp BP Pulse Ox 97.3 F L 78 16 119/76 98 03/16/16 07:21 03/16/16 07:21 03/16/16 07:21 03/16/16 07:21 03/16/16 07:21 General appearance: Present: A&O X 3, pleasant, answers questions appropriately <Chidi Knott - Last Filed: 03/17/16 18:20> Date of Encounter: 03/17/16 Time of Encounter: 18:20 Date of admission: 03/12/16 20:33 Primary care physician: YANET Jordan Consults: 03/12/16 22:04 Consult to Urology [CONS] Routine Consulting Provider: [facility] Reason for Consult: complicated UTI, chronic urinary retention, hx of ca prostate, urolithiasis s/p bilateral ureteral stents Call Completed: No 03/13/16 10:02 Consult to Nephrology [CONS] Routine Consulting Provider: [facility] Reason for Consult: Patient known to service. Please assess renal function, coordination of care Call Completed: Yes Hospital course: Mr. Rivera is a 65 year old male - Time Spent with Patient Total time spent providing and/or coordinating discharge services: - Constitutional Vitals: Temp Pulse Resp BP Pulse Ox 97.4 F L 79 18 118/77 98 03/16/16 16:24 03/16/16 16:24 03/16/16 16:24 03/16/16 16:24 03/16/16 16:24 - Attending Attestation I examined this patient and my medical decision-making was reviewed with the CORPORATE COMPLIANCE OFFICER/PA/Advanced Practice Nurse/Resident Physician. I agree with the documented findings, disposition and treatment plan as described except to the extent set forth below.
[2016-03-16] MEDS: amLODIPine 5 MG TABLET PO SCH (10:58)
[2016-03-16] MEDS: Insulin DETEMIR 100 UNIT/ML X5UNITS SQ SCH (22:32)
[2016-03-17 04:10] VITALS: BP 139/82
[2016-03-17 04:58] LABS: Basophils % 0.2 %; Eosinophils # 0.3 K/mcL (0.0-0.6); Eosinophils % 3.3 %; Hematocrit 27.6 % (37.5-50.1); Hemoglobin 8.9 g/dL (12.9-16.9); Immature Granulocytes % 0.8 % (0-4); Lymphocytes # 1.4 K/mcL (0.6-4.6); Lymphocytes % 13.9 %; Mean Corpuscular HGB Conc 32.2 g/dL (31.6-35.5); Mean Corpuscular Hemoglobin 29.2 pg (28.0-33.3); Mean Corpuscular Volume 90.5 fL (83.0-100.0); Mean Platelet Volume 8.8 fL (9.4-12.4); Monocytes # 0.5 K/mcL (0.0-1.3); Monocytes % 4.4 %; Neutrophils # 7.8 K/mcL (1.6-8.9); Platelet Count 449 K/mcL (140-400); Red Blood Count 3.05 M/mcL (4.19-5.50); Red Cell Distribution Width 12.8 % (11.5-14.5); Segmented Neutrophils % 77.4 %
[2016-03-17 05:15] LABS: Calcium 8.1 mg/dL (8.6-10.8); Potassium 4.1 mEq/L (3.5-4.5)
[2016-03-17] MEDS: Ampicillin 2 GM in 0.9 % Sodium Chloride Mini Bag 100 ML IVPB SCH ×2 (05:22→06:56)
[2016-03-17] MEDS: *HR* HYDROcodone/Acet 5/325 mg TABLET PO PRN (05:31)
[2016-03-17] MEDS: 0.9 % Sodium Chloride w KCl 20 MEQ/1,000 ML MLS IVC SCH (06:49)
[2016-03-17] MEDS: Insulin LISPRO 300 UNITS/3 ML VIAL SQ SCH ×4 (08:14→12:19)
[2016-03-17] MEDS: amLODIPine 5 MG TABLET PO SCH (08:18)
--- NOTE | 2016-03-17 10:00 | Event Note ---
<Mihai Adhikari - Last Filed: 03/17/16 18:00> Date of Encounter: 03/17/16 Time of Encounter: 11:00 Prior to discharge, was very upset about the potassium administration, food , and not feeling like an extra night was necessary. It was explained to her the reasoning for the extra night (new hematuria) and apologize for the mishap. Patient understood and was happy by the end of the discussion. <Chidi Knott - Last Filed: 03/17/16 18:20> Date of Encounter: 03/17/16 I examined this patient and my medical decision-making was reviewed with the LICENSE INSPECTOR/PA/Advanced Practice Nurse/Resident Physician. I agree with the documented findings, disposition and treatment plan as described except to the extent set forth below.
--- NOTE | 2016-03-17 12:36 | Nephrology Progress Note ---
Date of Encounter: 03/17/16 Time of Encounter: 11:50 - Assessment and Plan (1) Renal insufficiency Current Visit: Yes Status: Acute Renal fct stable, may be at his baseline. Excellent urine output. Consider decreasing IV fluids which are driving diuresis. If discharged home will see in Office on Monday-has scheduled appointment. Subjective Interval history: Sitting up in bed. at bedside. States feeling much better. Also thinks is being discharged home with carson catheter today. Objective - Vital Signs Vital signs: Vital Signs Temp Pulse Resp BP Pulse Ox 03/17/16 11:00 88 17 97 03/17/16 08:40 98 03/17/16 07:54 77 16 139/82 99 03/17/16 04:07 98.7 F 84 18 139/82 99 03/16/16 23:02 98 03/16/16 19:17 98.1 F 80 18 99/65 98 03/16/16 16:24 97.4 F L 79 18 118/77 98 Intake and Output 03/16/16 03/17/16 03/17/16 23:59 07:59 15:59 Intake Total 1340 / 1340 1000 / 1000 720 / 720 Output Total 4000 / 4000 2650 / 2650 1500 / 1500 Balance -2660 / -2660 -1650 / -1650 -780 / -780 Intake: IV Fluids 1100 / 1100 1000 / 1000 KCl 20 mEq in 0.9% Sodium 900 / 900 1000 / 1000 Chloride 20 meq In 1,000 ml @ 150 mls/hr IVC . Q6H40M [facility] Rx#:[id number] Ampicillin 2 GM In 0.9 % 200 / 200 Sodium Chloride (Mini-Bag +) 100 ML @ 200 mls/hr IVPB Q6H [facility] Rx#: [id number] Oral 240 / 240 720 / 720 Output: Catheter 4000 / 4000 2650 / 2650 1500 / 1500 Other: Meal Dinner Breakfast Percent of Meal Consumed 100% 100% Weight 93.1 kg Blood Glucose* 223 90 191 Patient Weight 03/17/16 23:59 Weight 93.1 kg - General Appearance General appearance: Present: well-developed, well-nourished, appears started age EENT: Present: mucous membranes moist Neck: Present: no JVD Respiratory: Present: clear Cardiology: Present: no edema, regular rate, regular rhythm Gastrointestinal: Present: normoactive bowel sounds, no tenderness Integumentary: Present: warm and dry Neurologic: Present: alert and oriented x3 - Lab 03/17/16 04:13 03/17/16 04:13 Most recent lab results Calcium 8.1 mg/dL (8.6-10.8) L 03/17/16 04:13 Phosphorus 3.1 mg/dL (2.3-4.7) 03/12/16 21:14 Magnesium 1.5 mg/dL (1.6-2.6) L 03/14/16 05:16 Consult Discharge Plan - Plan Instructions: Urinary Retention in Men (GEN), Urinary Tract Infection in Men ( DC), Prostate Cancer (DC), Prostate Cancer (GEN), Carson Catheter Placement and Care (DC), Carson Catheter Placement and Care (GEN), Diabetes Mellitus Type 2 in Adults (DC), Sepsis (DC), Urinary Leg Bag (GEN), Prostate Cancer, Rfid Manager (GEN) Referrals: Starr Ramos CNP [Primary Care Provider] -
--- NOTE | 2016-03-17 13:07 | Physician Discharge Referral ---
<Mihai Adhikari - Last Filed: 03/18/16 20:25> Home Health/Hosp Referral Info Transfer to: Home Health Attending Provider: Dr Chidi Knott Provider in Charge Post Discharge: PCP - Diagnosis (1) Urinary retention Priority: Primary Status: Acute (2) UTI (urinary tract infection) Priority: Primary Status: Acute (3) Prostate cancer Priority: Primary Status: Acute (4) Hypertension Priority: Primary Status: Chronic (5) Diabetes mellitus Priority: Primary Status: Chronic - Respiratory Orders None Smoking Cessation: Smoking cessation has been advised. For more information, call the [place] Tobacco Quit Line at 9-872-NBRF-NOW. - Dressing/Wound Care Site: none - Diet/Nutrition Diet/Nutrition Orders: Regular - Activity Activity Orders: Up ad tigre - Services Needed Following services are medically necessary services: Home Health Aide, Physical Therapy, Occupational Therapy Home Care Orders: Physical therapy minimal 3 times a week. Blood draws from home. - Transfer Medications Prescriptions: Ciprofloxacin [Cipro] 500 mg PO BID 5 Days Fluconazole [Diflucan] 200 mg PO DAILY 14 Days Home Medications: Insulin ASPART [Novolog Flexpen] 10 unit SQ TID 30 Days 01/19/16 [Rx] Insulin DETEMIR [Levemir] 30 unit SQ HS 30 Days 01/19/16 [Rx] Omeprazole [PriLOSEC] 40 mg PO DAILY 02/18/16 [History] Amlodipine Besylate 10 mg PO DAILY 03/13/16 [History] Ciprofloxacin [Cipro] 500 mg PO BID 5 Days 03/17/16 [Rx] Fluconazole [Diflucan] 200 mg PO DAILY 14 Days 03/17/16 [Rx] Allergies/Adverse Reactions: Allergies No Known Allergies Allergy (Verified 03/13/16 10:33) Certification: Further, I certify that my clinical findings support that this patient is homebound (i.e. absences from home require considerable and taxing effort and are for medical reasons or samaritan services or infrequently or short duration when for other reasons) because: Homebound Reason: Leaving home requires considerable and taxing effort due to condition Attestation: My signature below is to certify that this patient is under my care and that I, or nurse practitioner, or a physician's dam tender assistant working with me, has a face-to -face encounter with this patient. <Chidi Knott - Last Filed: 03/27/16 17:42> - Respiratory Orders Smoking Cessation: Smoking cessation has been advised. For more information, call the [place] Tobacco Quit Line at 1-081-LRDP-NOW. Certification: Further, I certify that my clinical findings support that this patient is homebound (i.e. absences from home require considerable and taxing effort and are for medical reasons or samaritan services or infrequently or short duration when for other reasons) because: Attestation: My signature below is to certify that this patient is under my care and that I, or nurse practitioner, or a physician's dam tender assistant working with me, has a face-to -face encounter with this patient.
== END 2016-03-17 15:45 | disposition home or self-care (01) | DRG 690 ==
LOC: 2NENU 13:34 → EMEROO 13:34 → 2NENU 19:17 → SUATTDRO 20:33
PROVIDERS: ADMIT Internal Medicine; ATTEND Internal Medicine

== ENCOUNTER 2016-04-13 10:35 | Inpatient (IN) ==
[2016-04-13] MEDS ORDERED: 0.9 % Sodium Chloride 1,000 ML IVC ONE (11:06)
[2016-04-13] MEDS ORDERED: Ondansetron 4 MG/2 ML VIAL IVP ONE (11:06)
--- NOTE | 2016-04-13 11:08 | Emergency Department Note ---
Disposition Clinical Impression: UTI (urinary tract infection) Qualifiers: Urinary tract infection type: acute cystitis Hematuria presence: without hematuria Qualified Code(s): N30.00 - Acute cystitis without hematuria Nausea & vomiting Qualifiers: Vomiting type: unspecified Vomiting Intractability: unspecified Qualified Code( s): R11.2 - Nausea with vomiting, unspecified Disposition: Admitted As Inpatient Condition: Fair Referrals: Joshua Sanchez, [employer] OPERATOR [Primary Care Provider] - Forms: ED Satisfaction Letter Time of Disposition: 11:43 Male Urogenital HPI - General Chief complaint: ED Urogenital-Male Stated complaint: UTI Time Seen by Provider: 04/13/16 10:59 Source: patient, family Mode of arrival: ambulatory Limitations: no limitations Nursing Notes Reviewed: Yes Vital Signs Reviewed: Yes - History of Present Illness HPI Narrative: 65-year-old has a history of prostate cancer comes in with being diagnosed with UTI couple days ago and started on Cipro. She has nausea vomiting and doesn't feel that Cipro is working. Review of previous cultures revealed organism that is sensitive to Cipro. Also has had a yeast infection 2. Pt Subjective Complaint: other (Urinary symptoms history of prostate cancer) Onset (ago): day(s) Duration: constant Location: abdomen Radiation: abdomen Severity: mild, moderate Quality: aching Improves with: none Worsens with: none other (Started on antibiotics for a UTI) - Related Data Home Medications Medication Instructions Recorded Confirmed Omeprazole [PriLOSEC] 40 mg PO DAILY 02/18/16 03/13/16 Amlodipine Besylate 10 mg PO DAILY 03/13/16 03/13/16 Previous Rx's Medication Instructions Recorded Insulin ASPART [Novolog Flexpen] 10 unit SQ TID 30 Days 01/19/16 Insulin DETEMIR [Levemir] 30 unit SQ HS 30 Days 01/19/16 Ciprofloxacin [Cipro] 500 mg PO BID 5 Days 03/17/16 Fluconazole [Diflucan] 200 mg PO DAILY 14 Days 03/17/16 Allergies Allergy/AdvReac Type Severity Reaction Status Date / Time No Known Allergies Allergy Verified 04/13/16 10:37 Constitutional: Denies: fever, chills, weakness, weight change Eyes: Denies: eye pain, eye discharge, vision change ENT ED: Denies: ear pain, throat pain, dental pain, hearing loss, epistaxis, congestion, dysphagia Cardiovascular: Denies: chest pain, palpitations, dyspnea on exertion, edema, syncope Respiratory: Denies: cough, dyspnea, wheezes, hemoptysis, stridor Gastrointestinal: Reports: nausea, vomiting. Denies: abdominal pain, diarrhea, constipation, hematemesis, melena, hematochezia Genitourinary: Denies: urgency, dysuria, frequency, hematuria Musculoskeletal: Denies: back pain, neck pain, arthralgia, myalgia Integumentary: Denies: rash, abrasion, lesions Neurological: Denies: headache, weakness, numbness, paresthesias, confusion, abnormal gait, vertigo Psychiatric: Denies: anxiety, depression, suicidal thoughts, homicidal thoughts , auditory hallucinations, visual hallucinations Endocrine: Denies: fatigue Hematological/Lymphatic: Denies: easy bleeding, easy bruising Allergic/Immunologic: Denies: facial swelling, urticaria Past Medical History - Past Medical History Medical history: Reports: cancer, diabetes, hyperlipidemia, hypertension, other Surgical history: Reports: orthopedic, other, ureteral stent Psychiatric history: Reports: no psych history - Social History Smoking Status: Never smoker Smokeless Tobacco Status: No Alcohol use: Reports: none Drug use: Reports: none Physical Exam - General Limitations: no limitations General appearance: alert, in no apparent distress - Head Head exam: normal inspection - Eye Eye exam: Present: normal appearance - ENT ENT exam: normal exam, normal oropharynx, mucous membranes moist, normal external ear exam - Neck Neck exam: Present: normal inspection, full ROM, trachea midline - Chest Chest inspection: Present: normal inspection, symmetric chest wall rise - Respiratory Respiratory exam: Present: normal lung sounds bilaterally - Cardiovascular Cardiovascular exam: Present: regular rate, normal rhythm, normal heart sounds - Neurological Exam Neurological exam: Present: alert, oriented X3, normal gait - Psychiatric Psychiatric exam: Present: normal affect, normal mood - Skin Skin exam: Present: warm, dry, intact, normal color Course - Reevaluation(s) Reevaluation #1: The patient has a history of prostate cancer was diagnosed with UTI started on Cipro, has had nausea vomiting not able to keep anything down and is feeling worse. It will be admitted to the hospitalist. Time: 11:42 - Consultations Consultation #1: Discussed with , admit. Time: 11:42 Vital Signs Temperature 97.3 F L 04/13/16 10:37 Pulse Rate 90 04/13/16 10:37 Respiratory Rate 18 04/13/16 10:37 Blood Pressure 132/79 04/13/16 10:37 O2 Sat by Pulse Oximetry 97 04/13/16 10:37 Temperature 97.3 F L 04/13/16 10:37 Pulse Rate 86 04/13/16 11:18 Respiratory Rate 16 04/13/16 11:18 Blood Pressure 133/86 04/13/16 11:18 O2 Sat by Pulse Oximetry 100 04/13/16 11:18 Oxygen Delivery Oxygen Delivery Room Air Urogenital-Male - Lab Data Result diagrams: 04/13/16 11:14 04/13/16 11:14 Lab Results 04/13/16 04/13/16 Range/Units 11:14 11:14 WBC 9.0 (4.3-11.1) K/mcL RBC 3.39 L (4.19-5.50) M/mcL Hgb 9.8 L (12.9-16.9) g/dL Hct 29.3 L (37.5-50.1) % MCV 86.4 (83.0-100.0) fL MCH 28.9 (28.0-33.3) pg MCHC 33.4 (31.6-35.5) g/dL RDW 13.8 (11.5-14.5) % Plt Count 463 H (140-400) K/mcL MPV 8.7 L (9.4-12.4) fL Immature Gran % 0.4 (0-4) % Seg Neutrophils % 62.8 % Lymphocytes % 27.9 % Monocytes % 7.5 % Eosinophils % 1.0 % Basophils % 0.4 % Neutrophils # 5.7 (1.6-8.9) K/mcL Lymphocytes # 2.5 (0.6-4.6) K/mcL Monocytes # 0.7 (0.0-1.3) K/mcL Eosinophils # 0.1 (0.0-0.6) K/mcL Basophils # 0.0 (0.0-0.2) K/mcL Sodium 136 (136-145) mEq/L Potassium 4.0 (3.5-4.5) mEq/L Chloride 102 (98-109) mEq/L Carbon Dioxide 19 (19-29) mEq/L BUN 34 H (8-26) mg/dL Creatinine 2.23 H (0.72-1.25) mg/dL Est GFR ( Amer) 36 L (> 60) Est GFR (Non-Af Amer) 30 L (> 60) BUN/Creatinine Ratio 15 (6-26) Glucose 91 (70-99) mg/dL Calculated Osmolality 289 (280-300) Calcium 9.1 (8.6-10.8) mg/dL
[2016-04-13 11:21] LABS: Basophils % 0.4 %; Eosinophils # 0.1 K/mcL (0.0-0.6); Hematocrit 29.3 % (37.5-50.1); Hemoglobin 9.8 g/dL (12.9-16.9); Immature Granulocytes % 0.4 % (0-4); Lymphocytes # 2.5 K/mcL (0.6-4.6); Lymphocytes % 27.9 %; Mean Corpuscular HGB Conc 33.4 g/dL (31.6-35.5); Mean Corpuscular Hemoglobin 28.9 pg (28.0-33.3); Mean Corpuscular Volume 86.4 fL (83.0-100.0); Mean Platelet Volume 8.7 fL (9.4-12.4); Monocytes # 0.7 K/mcL (0.0-1.3); Monocytes % 7.5 %; Neutrophils # 5.7 K/mcL (1.6-8.9); Platelet Count 463 K/mcL (140-400); Red Blood Count 3.39 M/mcL (4.19-5.50); Red Cell Distribution Width 13.8 % (11.5-14.5); Segmented Neutrophils % 62.8 %
[2016-04-13 11:33] LABS: Calcium 9.1 mg/dL (8.6-10.8)
[2016-04-13] MEDS ORDERED: Naloxone 0.4 MG/ML INJ IVP PRN (11:35)
[2016-04-13] MEDS ORDERED: *HR* Dextrose 50 % in Water (Syg) 50 ML SYRINGE IVP PRN (11:45)
[2016-04-13] MEDS ORDERED: Dextrose Gel 15 GM PO PRN ×2 (11:45)
[2016-04-13] MEDS ORDERED: D5% in Water 1,000 ML IV PRN (11:45)
--- NOTE | 2016-04-13 12:03 | Internal Med History&Physical ---
Date of Encounter: 04/14/16 Time of Encounter: 11:53 Assessment and Plan (1) Nausea & vomiting Current visit: Yes Status: Acute Likely secondary to the urinary tract infection. Will do symptomatic treatment. Qualifiers: Vomiting type: unspecified Vomiting Intractability: unspecified Qualified Code(s): R11.2 - Nausea with vomiting, unspecified (2) APOORVA (acute kidney injury) Current visit: No Status: Acute Baseline creatinine is around 1.5. Noted that the creatinine is 2.23. Etiology is likely prerenal Plan -We will start IV fluid. -We will get labs tomorrow morning. -If the creatinine is not a downward trend then we will consider retroperitoneal ultrasound. (3) UTI (urinary tract infection) Current visit: Yes Status: Acute This is a complicated urinary tract infection. I reviewed patient's previous culture reports. Patient has a multiple cultures were fungal, Emmanuelle in the urine. Patient's last urine culture was ECG Jordan which was a pansensitive strain Plan: -IV. Ceftriaxone 1 g every 24 hours -We will restart Diflucan -Case discussed with Dr. Weber Qualifiers: Urinary tract infection type: acute cystitis Hematuria presence: without hematuria Qualified Code(s): N30.00 - Acute cystitis without hematuria (4) Diabetes mellitus Current visit: No Status: Chronic Will continue home dose of insulin. We will monitor her blood sugar very closely. I do anticipate that his sugars will be elevated in view of underlying infection. Qualifiers: Diabetes mellitus type: type 2 Diabetes mellitus complication status: with hyperglycemia Diabetes mellitus snf insulin use: with snf use Qualified Code(s): E11.65 - Type 2 diabetes mellitus with hyperglycemia; Z79.4 - terminal carman (current) use of insulin (5) Prostate CA Current visit: No Status: Chronic Urology on the board and we will follow their recommendation (6) DVT prophylaxis Current visit: No Status: Acute Heparin Medical decision making: This patient has a [id number] risk of worsening renal function in spite of being on appropriate treatment Internal Medicine - H&P: HPI Chief complaint: Nausea, Dysuria Admitted From: Emergency Dept Plans for Post Hospital Care: Home History of present illness: PCP: [facility] Nephrology : Dr Kelly. Urology : Dr Ibarra. Brief PMH: DM on Insulin, HTN, prostate cancer, multiple episodes of complicated urinary tract infection in the past. History of present illness: Patient had a symptoms of urinary tract infection since last Monday. Patient started with some home remedies for 2 days. Patient went to see his primary care doctor on Monday morning. His primary care provider prescribed ciprofloxacin for his urinary tract infection. Patient took 2 days of ciprofloxacin. Patient has severe nausea and an episode of vomiting. Patient is unable to keep anything in his stomach. Patient's was concerned for this and that is the reason they came to emergency room. Course in the emergency room: Patient was evaluated by emergency room physician. Basic workup was done. Reason for admission: failed outpatient treatment for complicated UTI. This patient needs prolonged course of intravenous antibiotics. I have spoken to Dr. Kelly is a mental health program specialist and he agrees with the plan. I have informed urologist regarding this admission. Family history: noncontributory Past Med Surg Social Fam HX - Past Medical History Medical history: cancer, diabetes, hyperlipidemia, hypertension, other Psychiatric history: no psych history - Past Surgical History Surgical History: orthopedic, other, ureteral stent - Social History Smoking Status: Never smoker Smokeless Tobacco Status: No Alcohol use: none Drug use: none - Family History Father Living Status: Hx Family Cardiac Disorders: No Hx Family Respiratory Disorders: No Hx Family Cancer: Yes (Prostate) Hx Family GI Disorders: No Hx Family Endocrine Disorder: Yes (Diabetes) Hx Family Neuromuscular Disorders: No Hx Family Neurologic Disorders: No Hx Family HEENT Disorders: No Hx Family Autoimmune Disorders: No Brother Living Status: Still Living Hx Family Cancer: Yes (prostate cancer) Internal Medicine - H&P: Meds Insulin ASPART [Novolog Flexpen] 10 unit SQ TID 30 Days 01/19/16 [Rx] Insulin DETEMIR [Levemir] 30 unit SQ HS 30 Days 01/19/16 [Rx] Omeprazole [PriLOSEC] 40 mg PO DAILY PRN 02/18/16 [History] Amlodipine Besylate 10 mg PO DAILY 03/13/16 [History] Ciprofloxacin [Cipro] 500 mg PO BID 5 Days 03/17/16 [Rx] Fluconazole [Diflucan] 200 mg PO DAILY 14 Days 03/17/16 [Rx] Cyanocobalamin (Vitamin B-12) [Vitamin B12] 5,000 mcg PO DAILY 04/13/16 [History ] L. Acidophilus/Pectin, [place] [Acidophilus Probiotic Capsule] 1 cap PO DAILY 03/01 [History] Sertraline [Zoloft] 25 mg PO DAILY 04/13/16 [History] Allergies No Known Allergies Allergy (Verified 04/13/16 10:37) All Systems PM: A 10-system review of systems was performed and is negative for pertinent findings except as documented above in the HPI. - Constitutional Constitutional: no chills, no fever(s), no night sweats Additional comments: nausea++ and an episode of vomiting. - EENT Eyes: no change in vision, no discharge, no pain, no photophobia Ears: no ear discharge, no ear pain, no tinnitus Nose, mouth and throat: no dysphagia, no nasal discharge, no neck pain, no sore throat - Cardiovascular Cardiovascular ROS IM: no chest pain, no diaphoresis, no dyspnea, no lightheadedness, no palpitations, no syncope - Respiratory Respiratory: no cough, no dyspnea, no wheezing, no excessive phlegm production - Gastrointestinal Gastrointestinal: no abdominal pain, no diarrhea, no hematemesis, no hematochezia, no melena, no nausea, no vomiting - Musculoskeletal Musculoskeletal ROS IM: no numbness, no tingling - Integumentary Integumentary IM: no rash, no unusual bruising - Neurological Neurological ROS: no confusion, no convulsions, no focal weakness, no numbness, no tingling, no tremor(s) - Hematologic/Lymphatic Hematologic/Lymphatic: no easy bruising - Constitutional Vitals: Temp Pulse Resp BP Pulse Ox 97.3 F L 86 16 133/86 100 04/13/16 10:37 04/13/16 11:18 04/13/16 11:18 04/13/16 11:18 04/13/16 11:18 General appearance: Present: A&O X 3, pleasant, answers questions appropriately - Head Head exam: Present: atraumatic, normocephalic - Eye Eye exam: Present: PERRL, conjuntiva pink, sclera anicteric Pupils: Present: PERRL - Neck Neck exam general surgery: Present: supple, trachea midline. Absent: lymphadenopathy - Respiratory Respiratory exam: Present: CTAB. Absent: accessory muscle use, rales, rhonchi, wheezes - Cardiovascular Cardiovascular exam: Present: RRR, +S1, +S2. Absent: diastolic murmur, gallop, rubs, systolic murmur - GI/Abdominal GI/Abdominal exam: Present: normal bowel sounds, soft, no peritoneal signs. Absent: distended, tenderness - Extremities Exam Extremities exam: Present: warm, radial pulses palpable and symetrical. Absent : calf tenderness, cyanotic, pedal edema - Neurological Exam Neurological exam: Present: CN II-XII intact, oriented X3, no focal deficits. Absent: pronater drift, facial droop, speech deficit - Skin Skin exam: Present: dry, intact Internal Med - H&P Results - Labs CBC & Chem 7: 04/14/16 06:07 04/14/16 06:07 Labs: Short CBC 04/13/16 Range/Units 11:14 WBC 9.0 (4.3-11.1) K/mcL Hgb 9.8 L (12.9-16.9) g/dL Hct 29.3 L (37.5-50.1) % Plt Count 463 H (140-400) K/mcL Neutrophils # 5.7 (1.6-8.9) K/mcL BMP 04/13/16 11:14 Sodium 136 Potassium 4.0 Chloride 102 Carbon Dioxide 19 BUN 34 H Creatinine 2.23 H Glucose 91 Calcium 9.1
[2016-04-13 12:11] LABS: Bilirubin,Urine Negative (Negative); Blood,Urine Moderate (Negative); Clarity,Urine Cloudy (Clear); Color,Urine Yellow (Yellow); Glucose,Urine (UA) Normal (Normal); Ketones,Urine Negative (Negative); Leukocyte Esterase,Urine Large (Negative); Nitrite,Urine Positive (Negative); PH,Urine 6.5 pH Units (5.0-8.0); Protein,Urine 100 mg/dL (Neg-Trace); Urobilinogen,Urine Normal (Normal)
[2016-04-13 12:13] LABS: Bacteria,Urine None Seen per hpf (None-Few); Hyaline Casts,Urine None Seen per lpf (None-Few); Squamous Epithelial Cell,Urine Moderate per lpf (None-Few); WBC,Urine TNTC per hpf (0-3)
[2016-04-13 12:32] LABS: RBC,Urine 0-3 per hpf (0-3); Yeast,Urine Few per hpf (None Seen)
[2016-04-13] MEDS: Insulin LISPRO 300 UNITS/3 ML VIAL SQ SCH ×4 (12:54→17:11)
[2016-04-13] MEDS: 0.9 % Sodium Chloride 1,000 ML IVC SCH ×2 (13:00→22:38)
[2016-04-13] MEDS: Fluconazole 100 MG TABLET PO SCH (13:11)
[2016-04-13] MEDS: amLODIPine 5 MG TABLET PO SCH (13:12)
--- NOTE | 2016-04-13 13:57 | Urology - Consult Note ---
Date of Encounter: 04/13/16 Time of Encounter: 13:53 - Assessment and Plan (1) UTI (urinary tract infection) Current Visit: Yes Status: Acute Assessment and plan: I am concerned that this patient could either have resistant fungal Emmanuelle. He has been on Diflucan multiple different times and seems to failed to be able to clear the infection. He also has indwelling ureteral stents which could be colonized with fungus and may need to be changed at some time in the near future. Qualifiers: Urinary tract infection type: acute cystitis Hematuria presence: without hematuria Qualified Code(s): N30.00 - Acute cystitis without hematuria (2) Prostate CA Current Visit: No Status: Chronic Assessment and plan: no acute need for this. Urology CN:HPI Consult date: 04/13/16 Reason for consult Urology: Other (recurrent uti) Requesting physician: Chidi Knott History of present illness: Faustino is a 65-year-old male well-known to the urology service for metastatic prostate cancer with indwelling ureteral stents. Patient has had multiple different cultures showing Emmanuelle tropicalis. He has been on Diflucan multiple different times. He is now readmitted to the hospital secondary to likely infection. He states he was having dry heaves as well as fever at home. Past Med Surg Social Fam HX - Past Medical History Medical history: cancer, diabetes, hyperlipidemia, hypertension, other Psychiatric history: no psych history - Past Surgical History Surgical History: orthopedic, other, ureteral stent - Social History Smoking Status: Never smoker Smokeless Tobacco Status: No Alcohol use: none Drug use: none - Family History Father Living Status: Hx Family Cardiac Disorders: No Hx Family Respiratory Disorders: No Hx Family Cancer: Yes (Prostate) Hx Family GI Disorders: No Hx Family Endocrine Disorder: Yes (Diabetes) Hx Family Neuromuscular Disorders: No Hx Family Neurologic Disorders: No Hx Family HEENT Disorders: No Hx Family Autoimmune Disorders: No Brother Living Status: Still Living Hx Family Cancer: Yes (prostate cancer) Medications and Allergies Insulin ASPART [Novolog Flexpen] 10 unit SQ TID 30 Days 01/19/16 [Rx] Insulin DETEMIR [Levemir] 30 unit SQ HS 30 Days 01/19/16 [Rx] Omeprazole [PriLOSEC] 40 mg PO DAILY PRN 02/18/16 [History] Amlodipine Besylate 10 mg PO DAILY 03/13/16 [History] Ciprofloxacin [Cipro] 500 mg PO BID 5 Days 03/17/16 [Rx] Fluconazole [Diflucan] 200 mg PO DAILY 14 Days 03/17/16 [Rx] Cyanocobalamin (Vitamin B-12) [Vitamin B12] 5,000 mcg PO DAILY 04/13/16 [History ] L. Acidophilus/Pectin, [place] [Acidophilus Probiotic Capsule] 1 cap PO DAILY 03/01 [History] Sertraline [Zoloft] 25 mg PO DAILY 04/13/16 [History] Allergies No Known Allergies Allergy (Verified 04/13/16 10:37) Review of Systems - Constitutional no chills - EENT Nose, mouth and throat: no dizziness - Cardiovascular no chest pain at rest - Respiratory no cough - Gastrointestinal abdominal pain - Musculoskeletal no back pain - Integumentary no erythema - Neurological no confusion Exam Initial Vital Signs Temp Pulse Resp BP Pulse Ox 97.3 F L 90 18 132/79 97 04/13/16 10:37 04/13/16 10:37 04/13/16 10:37 04/13/16 10:37 04/13/16 10:37 - General physical appearance Present: well developed - Eyes Present: PERRL - ENT Present: normal nares - Neck Present: no masses - Respiratory Present: normal respiratory effort - Cardiovascular Cardiovascular exam IM: RRR - Abdomen Abdomen: Present: soft Urology Results - Labs 04/13/16 11:14 04/13/16 11:14 Abnormal lab results RBC 3.39 M/mcL (4.19-5.50) L 04/13/16 11:14 Hgb 9.8 g/dL (12.9-16.9) L 04/13/16 11:14 Hct 29.3 % (37.5-50.1) L 04/13/16 11:14 Plt Count 463 K/mcL (140-400) H 04/13/16 11:14 MPV 8.7 fL (9.4-12.4) L 04/13/16 11:14 BUN 34 mg/dL (8-26) H 04/13/16 11:14 Creatinine 2.23 mg/dL (0.72-1.25) H 04/13/16 11:14 Est GFR ( Amer) 36 (> 60) L 04/13/16 11:14 Est GFR (Non-Af Amer) 30 (> 60) L 04/13/16 11:14 POC Glucose 114 (58-89) H 04/13/16 12:52 Urine Clarity Cloudy (Clear) A 04/13/16 11:56 Urine Protein 100 mg/dL (Neg-Trace) H 04/13/16 11:56 Urine Blood Moderate (Negative) H 04/13/16 11:56 Urine Nitrite Positive (Negative) A 04/13/16 11:56 Ur Leukocyte Esterase Large (Negative) H 04/13/16 11:56 Urine Microscopic WBC TNTC per hpf (0-3) H 04/13/16 11:56 Ur Squamous Epith Cells Moderate per lpf (None-Few) H 04/13/16 11:56 Urine Yeast Few per hpf (None Seen) H 04/13/16 11:56 Ur Culture Indicated? YES (NO) A 04/13/16 11:56 All other labs normal. Consult Discharge Plan - Plan Referrals: Joshua Sanchez, ACCESS CLINICIAN [Primary Care Provider] -
[2016-04-13] MEDS: *HR* Heparin 5,000 UNIT/ML VIAL SQ SCH (18:26)
[2016-04-13] MEDS: Insulin DETEMIR 100 UNIT/ML X5UNITS SQ SCH (22:15)
[2016-04-13] MEDS: *HR* Morphine 2 MG/ML SYRINGE IVP PRN (22:15)
[2016-04-13] MEDS ORDERED: *HR* Promethazine 25 MG/ML VIAL IVP PRN (22:23)
[2016-04-14] MEDS: *HR* Heparin 5,000 UNIT/ML VIAL SQ SCH ×2 (04:54→18:41)
[2016-04-14 05:03] LABS: Bilirubin,Urine Negative (Negative); Blood,Urine Trace (Negative); Clarity,Urine Cloudy (Clear); Color,Urine Yellow (Yellow); Glucose,Urine (UA) Normal (Normal); Ketones,Urine Negative (Negative); Leukocyte Esterase,Urine Large (Negative); Nitrite,Urine Positive (Negative); PH,Urine 6.5 pH Units (5.0-8.0); Protein,Urine 30 mg/dL (Neg-Trace); Specific Gravity,Urine 1.008 (1.010-1.025); Urobilinogen,Urine Normal (Normal)
[2016-04-14 05:05] LABS: Bacteria,Urine None Seen per hpf (None-Few); Hyaline Casts,Urine None Seen per lpf (None-Few); Squamous Epithelial Cell,Urine Few per lpf (None-Few); WBC,Urine 50-100 per hpf (0-3)
[2016-04-14 06:32] LABS: Basophils % 0.4 %; Eosinophils # 0.3 K/mcL (0.0-0.6); Eosinophils % 3.6 %; Hematocrit 26.9 % (37.5-50.1); Hemoglobin 8.7 g/dL (12.9-16.9); Immature Granulocytes % 0.8 % (0-4); Lymphocytes % 28.3 %; Mean Corpuscular HGB Conc 32.3 g/dL (31.6-35.5); Mean Corpuscular Hemoglobin 28.3 pg (28.0-33.3); Mean Corpuscular Volume 87.6 fL (83.0-100.0); Mean Platelet Volume 8.7 fL (9.4-12.4); Monocytes # 0.6 K/mcL (0.0-1.3); Monocytes % 8.3 %; Neutrophils # 4.2 K/mcL (1.6-8.9); Platelet Count 413 K/mcL (140-400); Red Blood Count 3.07 M/mcL (4.19-5.50); Red Cell Distribution Width 13.7 % (11.5-14.5); Segmented Neutrophils % 58.6 %
[2016-04-14 06:43] LABS: Albumin 2.4 g/dL (3.5-5.0); Albumin/Globulin Ratio 0.6 (1.1-2.2); Bilirubin,Total 0.3 mg/dL (0.2-1.2); Calcium 8.2 mg/dL (8.6-10.8); Chol/HDL Ratio 6.4 (0-4.9); Globulin 4.3 g/dL (2.4-3.5); Magnesium 1.6 mg/dL (1.6-2.6); Phosphorous 4.5 mg/dL (2.3-4.7); Potassium 3.9 mEq/L (3.5-4.5); Total Protein 6.7 g/dL (6.0-8.3)
[2016-04-14] MEDS: Insulin LISPRO 300 UNITS/3 ML VIAL SQ SCH ×6 (08:07→17:36)
[2016-04-14] MEDS: amLODIPine 5 MG TABLET PO SCH (08:27)
--- NOTE | 2016-04-14 08:38 | Nephrology Consult Note ---
Date of Encounter: 04/14/16 Time of Encounter: 08:10 Assessment and Plan (1) APOORVA (acute kidney injury) Current Visit: No Status: Acute APOORVA superimposed on CKD 3, baseline creat 1.5-1.7, most likely prerenal in setting of infectious process and decreased oral intake. Renal fct improving, creat 1.96, GFR 34, urine output 1270cc. Continue IV fluids, avoid nephrotoxins. will continue to monitor. History of Present Illness - Reason for Consult Acute Kidney Injury - History of Present Illness Mr. Rivera is a 65 year old male with known CKD 3, baseline creat 1.5-1.7, with history of prostate cancer and ureteral stents, chronic UTI's and arline in urine. Other PMH of HTN, DM, HLD. Mr. Rivera was diagnosed a few days ago with UTI and placed on Cipro, culture sensitive in past. He states has had dry heaves , no emesis, with decreased oral intake despit antibiotic and presented to ER. He was started in IV fluids, cephtriaxone and Diflucan. At consult today, present in room, he states he is feeling much bette6 with return of appetite and increased oral intake. Hira any difficulty emptying bladder. Past Med Surg Social Fam HX - Past Medical History Medical history: cancer, diabetes, hyperlipidemia, hypertension, other Psychiatric history: no psych history - Past Surgical History Surgical History: orthopedic, other, ureteral stent - Social History Smoking Status: Never smoker Smokeless Tobacco Status: No Alcohol use: none Drug use: none - Family History Father Living Status: Hx Family Cardiac Disorders: No Hx Family Respiratory Disorders: No Hx Family Cancer: Yes (Prostate) Hx Family GI Disorders: No Hx Family Endocrine Disorder: Yes (Diabetes) Hx Family Neuromuscular Disorders: No Hx Family Neurologic Disorders: No Hx Family HEENT Disorders: No Hx Family Autoimmune Disorders: No Brother Living Status: Still Living Hx Family Cancer: Yes (prostate cancer) Medications and Allergies Insulin ASPART [Novolog Flexpen] 10 unit SQ TID 30 Days 01/19/16 [Rx] Insulin DETEMIR [Levemir] 30 unit SQ HS 30 Days 01/19/16 [Rx] Omeprazole [PriLOSEC] 40 mg PO DAILY PRN 02/18/16 [History] Amlodipine Besylate 10 mg PO DAILY 03/13/16 [History] Ciprofloxacin [Cipro] 500 mg PO BID 5 Days 03/17/16 [Rx] Fluconazole [Diflucan] 200 mg PO DAILY 14 Days 03/17/16 [Rx] Cyanocobalamin (Vitamin B-12) [Vitamin B12] 5,000 mcg PO DAILY 04/13/16 [History ] L. Acidophilus/Pectin, [place] [Acidophilus Probiotic Capsule] 1 cap PO DAILY 03/01 [History] Sertraline [Zoloft] 25 mg PO DAILY 04/13/16 [History] Allergies No Known Allergies Allergy (Verified 04/13/16 10:37) Review of Systems All Systems: reviewed and no additional remarkable complaints except as stated Exam - Vital Signs Vital signs: Initial Vital Signs Temp Pulse Resp BP Pulse Ox 97.3 F L 90 18 132/79 97 04/13/16 10:37 04/13/16 10:37 04/13/16 10:37 04/13/16 10:37 04/13/16 10:37 Vital Signs - Last 8 Hours Temp Pulse Resp BP Pulse Ox 04/14/16 06:40 97.8 F 73 18 127/81 95 Intake and Output 04/13/16 04/14/16 04/14/16 23:59 07:59 15:59 Intake Total 325 / 325 550 / 550 Output Total 620 / 620 1560 / 1560 Balance -295 / -295 -1010 / -1010 Intake: Oral 325 / 325 550 / 550 Output: Urine 620 / 620 1560 / 1560 Other: Blood Glucose* 104 82 - General Appearance General appearance: well-developed, well-nourished, appears started age EENT: mucous membranes moist Neck: no JVD Respiratory: clear Cardiology: no edema, regular rate, regular rhythm Gastrointestinal: normoactive bowel sounds, no tenderness Integumentary: no rash, warm and dry Neurologic: alert and oriented x3 Psychiatric: mood/affect appropriate, cooperative Results - Lab Results 04/14/16 06:07 04/14/16 06:07 Most recent lab results Calcium 8.2 mg/dL (8.6-10.8) L 04/14/16 06:07 Phosphorus 4.5 mg/dL (2.3-4.7) 04/14/16 06:07 Magnesium 1.6 mg/dL (1.6-2.6) 04/14/16 06:07 Consult Discharge Plan - Plan Referrals: Joshua Sanchez, TRAINING FACILITATOR [Primary Care Provider] -
[2016-04-14] MEDS: Fluconazole 100 MG TABLET PO SCH (09:48)
[2016-04-14] MEDS: 0.9 % Sodium Chloride 1,000 ML IVC SCH (12:07)
--- NOTE | 2016-04-14 14:30 | Internal Med Progress Note ---
<Ric Ball - Last Filed: 04/14/16 17:55> Date of Encounter: 04/14/16 Time of Encounter: 14:28 - Assessment and plan (1) Complicated UTI (urinary tract infection) Current Visit: Yes Status: Acute Assessment and plan: Patient has had recurrent UTIs. S/P stenting of the ureteral orifices. Blood cultures were sent and are penging. Urine cultures have grown GPC. I spoke with the lab and this is preliminarily enterococcus. also culture from 04/02 has grown Arline tropicalis. we will send this for sensitivity. Recurrent infection may be secondary to infection forming a nidus on stents. Possibly Arline species that are resistant to fluconazole. May possibly have stents replaced. If so we will continue fluconazole and await sensitivty. continue Rocephin until final sensitivity and culture is available. (2) APOORVA (acute kidney injury) Current Visit: Yes Status: Acute Assessment and plan: likely prerenal from dehydration. Infection likely also contributing. SCR imnproving continue IV fluids. appreciate Nephrologies input. (3) Prostate cancer Current Visit: Yes Status: Acute Assessment and plan: currently on Lupron follow with Oncology as an Outpatient (4) Fungus present in urine Current Visit: Yes Status: Acute Assessment and plan: we will send cultures from 04/02 for sensitivity. continue fluconazole glycemic control (5) Diabetes Current Visit: Yes Status: Acute Assessment and plan: Sliding scale Qualifiers: Qualified Code(s): E11.9 - Type 2 diabetes mellitus without complications (6) DVT prophylaxis Current Visit: Yes Status: Acute Assessment and plan: EPCDs in place. - Subjective Interval history: Mr. Rivera is a very pleasant 65 y.o. male who was recently diagnosed with [id number] prostate cancer with invasion into the ureteral orifices and trigone. Bone scan was negative for metastasis. He has had stents placed as well. He has had recurrent UTI. He has had multiple cultures with arline tropicalis ( no sensitivities performed) and E. faecalis. He was admitted after he had Nausea and vomitting following new onset of Lower urinary tract symptoms. today he states that he is feeling much better. Nausea has improved. He has less burning with urination. He admits to fever of 101.2 at home. he denies chest pain, dyspnea, Abdominal paikn, and diarrhea. He has no further complaints or concerns at this time. - Constitutional Vitals: Temp Pulse Resp BP Pulse Ox 98.5 F 84 16 123/67 97 04/14/16 10:19 04/14/16 10:19 04/14/16 10:19 04/14/16 10:19 04/14/16 10:19 General appearance: Present: A&O X 3, pleasant, answers questions appropriately - Head Head exam: Present: atraumatic, normocephalic - Eye Eye exam: Present: PERRL, conjuntiva pink, sclera anicteric Pupils: Present: PERRL - Neck Neck exam general surgery: Present: supple, trachea midline. Absent: lymphadenopathy - Respiratory Respiratory exam: Present: CTAB. Absent: accessory muscle use, rales, rhonchi, wheezes - Cardiovascular Cardiovascular exam: Present: RRR, +S1, +S2. Absent: diastolic murmur, gallop, rubs, systolic murmur - GI/Abdominal GI/Abdominal exam: Present: normal bowel sounds, soft, no peritoneal signs. Absent: distended, tenderness - Extremities Exam Extremities exam: Present: warm, radial pulses palpable and symetrical. Absent : calf tenderness, cyanotic, pedal edema - Neurological Exam Neurological exam: Present: oriented X3 - Skin Skin exam: Present: dry, intact Internal Medicine: Result - Labs CBC & Chem 7: 04/14/16 06:07 04/14/16 06:07 Labs: Short CBC 04/14/16 Range/Units 06:07 WBC 7.2 (4.3-11.1) K/mcL Hgb 8.7 L (12.9-16.9) g/dL Hct 26.9 L (37.5-50.1) % Plt Count 413 H (140-400) K/mcL Neutrophils # 4.2 (1.6-8.9) K/mcL BMP 04/14/16 06:07 Sodium 139 Potassium 3.9 Chloride 107 Carbon Dioxide 23 BUN 29 H Creatinine 1.96 H Glucose 88 Calcium 8.2 L Liver Function 04/14/16 Range/Units 06:07 Total Bilirubin 0.3 (0.2-1.2) mg/dL AST 9 (5-34) Units/L ALT 9 (0-55) Units/L Alkaline Phosphatase 62 (38-126) Units/L Albumin 2.4 L (3.5-5.0) g/dL Urine 04/14/16 Range/Units 04:50 Urine Color Yellow (Yellow) Urine Clarity Cloudy A (Clear) Urine pH 6.5 (5.0-8.0) pH Units Ur Specific [place] 1.008 L (1.010-1.025) Urine Protein 30 H (Neg-Trace) mg/dL Urine Glucose (UA) Normal (Normal) mg/dL - VTE Documentation of Mechanical Device: Venous foot pump, device Consult Discharge Plan - Plan Referrals: Joshua Sanchez, [employer] [Primary Care Provider] - <Jayjay Gabriel - Last Filed: 04/14/16 18:24> Date of Encounter: 04/14/16 - Constitutional Vitals: Temp Pulse Resp BP Pulse Ox 98.1 F 87 18 115/71 98 04/14/16 16:18 04/14/16 16:18 04/14/16 16:18 04/14/16 16:18 04/14/16 16:18 Internal Medicine: Result - Labs CBC & Chem 7: 04/14/16 06:07 04/14/16 06:07 Labs: Short CBC 04/14/16 Range/Units 06:07 WBC 7.2 (4.3-11.1) K/mcL Hgb 8.7 L (12.9-16.9) g/dL Hct 26.9 L (37.5-50.1) % Plt Count 413 H (140-400) K/mcL Neutrophils # 4.2 (1.6-8.9) K/mcL BMP 04/14/16 06:07 Sodium 139 Potassium 3.9 Chloride 107 Carbon Dioxide 23 BUN 29 H Creatinine 1.96 H Glucose 88 Calcium 8.2 L Liver Function 04/14/16 Range/Units 06:07 Total Bilirubin 0.3 (0.2-1.2) mg/dL AST 9 (5-34) Units/L ALT 9 (0-55) Units/L Alkaline Phosphatase 62 (38-126) Units/L Albumin 2.4 L (3.5-5.0) g/dL Urine 04/14/16 Range/Units 04:50 Urine Color Yellow (Yellow) Urine Clarity Cloudy A (Clear) Urine pH 6.5 (5.0-8.0) pH Units Ur Specific [place] 1.008 L (1.010-1.025) Urine Protein 30 H (Neg-Trace) mg/dL Urine Glucose (UA) Normal (Normal) mg/dL - Attending Attestation I examined this patient and my medical decision-making was reviewed with the STONE RUBBER/PA/Advanced Practice Nurse/Resident Physician. I agree with the documented findings, disposition and treatment plan as described except to the extent set forth below. Mr. Rivera was seen and examined during rounds. Recurrent UTI and evidence of fungal infections. Continue with fluconazole and Rocephin. Discussed with the patient and his in detail. Stent removel on monday. He can have clear liquid diet for breafkfast on monday and npo afterwards.
--- NOTE | 2016-04-14 17:36 | Urology Progress Note ---
Date of Encounter: 04/14/16 Time of Encounter: 17:33 - Assessment and Plan (1) Prostate cancer Current Visit: Yes Status: Acute Assessment and plan: Will check PSA and testosterone tomorow. (2) UTI (urinary tract infection) Current Visit: Yes Status: Acute Assessment and plan: Continue antibiotics. Will plan on stent change for 04/18/2016. Will discuss disposition with primary team, ie remain in patient on antibiotics until that time or discharge home prior. Qualifiers: Urinary tract infection type: acute cystitis Hematuria presence: without hematuria Qualified Code(s): N30.00 - Acute cystitis without hematuria Progress Note Narrative: Locally advanced prostate cancer. Admitted for UTI and APOORVA. GPC growing out. Considering stent change. Objective Initial Vital Signs Temp Pulse Resp BP Pulse Ox 97.3 F L 90 18 132/79 97 04/13/16 10:37 04/13/16 10:37 04/13/16 10:37 04/13/16 10:37 04/13/16 10:37 - General physical appearance Present: well developed, well nourished, no distress - Respiratory Present: normal respiratory effort - Abdomen Present: soft - Labs 04/14/16 06:07 04/14/16 06:07 Diabetes panel 04/14/16 Range/Units 06:07 Sodium 139 (136-145) mEq/L Potassium 3.9 (3.5-4.5) mEq/L Chloride 107 (98-109) mEq/L Carbon Dioxide 23 (19-29) mEq/L BUN 29 H (8-26) mg/dL Creatinine 1.96 H (0.72-1.25) mg/dL Glucose 88 (70-99) mg/dL Calcium 8.2 L (8.6-10.8) mg/dL AST 9 (5-34) Units/L ALT 9 (0-55) Units/L Alkaline Phosphatase 62 (38-126) Units/L Albumin 2.4 L (3.5-5.0) g/dL Triglycerides 137 (< 150) mg/dL HDL Cholesterol 30 L (40-59) mg/dL Calcium panel 04/14/16 Range/Units 06:07 Calcium 8.2 L (8.6-10.8) mg/dL Phosphorus 4.5 (2.3-4.7) mg/dL Albumin 2.4 L (3.5-5.0) g/dL Pituitary panel 04/14/16 Range/Units 06:07 Sodium 139 (136-145) mEq/L Potassium 3.9 (3.5-4.5) mEq/L Chloride 107 (98-109) mEq/L Carbon Dioxide 23 (19-29) mEq/L BUN 29 H (8-26) mg/dL Creatinine 1.96 H (0.72-1.25) mg/dL Glucose 88 (70-99) mg/dL Calcium 8.2 L (8.6-10.8) mg/dL Adrenal panel 04/14/16 Range/Units 06:07 Sodium 139 (136-145) mEq/L Potassium 3.9 (3.5-4.5) mEq/L Chloride 107 (98-109) mEq/L Carbon Dioxide 23 (19-29) mEq/L BUN 29 H (8-26) mg/dL Creatinine 1.96 H (0.72-1.25) mg/dL Glucose 88 (70-99) mg/dL Calcium 8.2 L (8.6-10.8) mg/dL Total Bilirubin 0.3 (0.2-1.2) mg/dL AST 9 (5-34) Units/L ALT 9 (0-55) Units/L Alkaline Phosphatase 62 (38-126) Units/L Albumin 2.4 L (3.5-5.0) g/dL - VTE Documentation of Mechanical Device: Venous foot pump, device Consult Discharge Plan - Plan Referrals: Joshua Sanchez, DENA [Primary Care Provider] -
[2016-04-14] MEDS: Insulin DETEMIR 100 UNIT/ML X5UNITS SQ SCH (21:41)
[2016-04-15] MEDS: *HR* Morphine 2 MG/ML SYRINGE IVP PRN (03:14)
[2016-04-15] MEDS: 0.9 % Sodium Chloride 1,000 ML IVC SCH (05:08)
[2016-04-15] MEDS: *HR* Heparin 5,000 UNIT/ML VIAL SQ SCH ×2 (06:26→17:19)
[2016-04-15 07:07] LABS: Basophils % 0.4 %; Eosinophils # 0.3 K/mcL (0.0-0.6); Hematocrit 25.3 % (37.5-50.1); Hemoglobin 8.6 g/dL (12.9-16.9); Immature Granulocytes % 0.4 % (0-4); Lymphocytes # 2.1 K/mcL (0.6-4.6); Mean Corpuscular Hemoglobin 29.4 pg (28.0-33.3); Mean Corpuscular Volume 86.3 fL (83.0-100.0); Mean Platelet Volume 9.1 fL (9.4-12.4); Monocytes # 0.6 K/mcL (0.0-1.3); Monocytes % 7.8 %; Neutrophils # 4.4 K/mcL (1.6-8.9); Platelet Count 406 K/mcL (140-400); Red Blood Count 2.93 M/mcL (4.19-5.50); Red Cell Distribution Width 13.5 % (11.5-14.5); Segmented Neutrophils % 59.4 %
[2016-04-15 07:20] LABS: Calcium 8.3 mg/dL (8.6-10.8)
[2016-04-15] MEDS: Insulin LISPRO 300 UNITS/3 ML VIAL SQ SCH ×6 (07:46→17:19)
[2016-04-15 07:47] LABS: Prostate Specific Antigen 17.13 ng/mL (0.00-4.00)
--- NOTE | 2016-04-15 08:09 | Internal Med Progress Note ---
<Matias Walker - Last Filed: 04/15/16 15:21> Date of Encounter: 04/15/16 Time of Encounter: 08:08 - Assessment and plan (1) Complicated UTI (urinary tract infection) Current Visit: Yes Status: Acute Assessment and plan: 04/15/16 Urine culture grew Enterococcus faecalis which is pansensitive Patient has been on Rocephin for another recent UTI without symptomatic improvement Will switch antibiotic from Levaquin to ampicillin 04/14/16 Patient has had recurrent UTIs. S/P stenting of the ureteral orifices. Blood cultures were sent and are penging. Urine cultures have grown GPC. I spoke with the lab and this is preliminarily enterococcus. also culture from 04/02 has grown Emmanuelle tropicalis. we will send this for sensitivity. Recurrent infection may be secondary to infection forming a nidus on stents. Possibly Emmanuelle species that are resistant to fluconazole. May possibly have stents replaced. If so we will continue fluconazole and await sensitivty. continue Rocephin until final sensitivity and culture is available. (2) APOORVA (acute kidney injury) Current Visit: Yes Status: Acute Assessment and plan: 04/15/16 Appreciate nephrology recommendations Renal function is improving Continue to monitor 04/14/16 likely prerenal from dehydration. Infection likely also contributing. SCR imnproving continue IV fluids. appreciate Nephrologies input. (3) Prostate cancer Current Visit: Yes Status: Acute Assessment and plan: 04/14/16 currently on Lupron follow with Oncology as an Outpatient (4) Fungus present in urine Current Visit: Yes Status: Acute Assessment and plan: 04/15/16 Urine culture grew Emmanuelle tropicalis Sensitivities pending 04/14/16 we will send cultures from 04/02 for sensitivity. continue fluconazole glycemic control (5) Diabetes Current Visit: Yes Status: Acute Assessment and plan: Continue Sliding scale Qualifiers: Qualified Code(s): E11.9 - Type 2 diabetes mellitus without complications (6) DVT prophylaxis Current Visit: Yes Status: Acute Assessment and plan: EPCDs in place. Patient is also on heparin - Subjective Interval history: Mr. Rivera is a pleasant 65-year-old male, new patient to me this morning. He has a past medical history significant for recently diagnosed prostate cancer, recent recurrent UTIs, CKDIII Matias is acute, hypertension, type 2 diabetes. Most recent prior UTI was about a month ago and culture grew out Enterococcus faecalis and Emmanuelle tropicalis. Sensitivity showed it was pretty much pansensitive and he was started on Cipro without improvement. He is now back in a similar situation where urine culture is again pansensitive. Discussed the case with infectious disease and we agreed that it is reasonable to change him at this point to ampicillin while awaiting his procedure on Monday with the possibility of changing this to by mouth upon discharge Patient was seen and examined at bedside. He denies chest pain, dyspnea, abdominal pain or any new complaints. He is having some left-sided flank pain that he describes as a muscle spasm. He is also on a home dose of 25 mg sertraline that he is currently receiving here - Constitutional Vitals: Temp Pulse Resp BP Pulse Ox 97.8 F 82 16 132/78 98 04/15/16 06:36 04/15/16 06:36 04/15/16 06:36 04/15/16 06:36 04/15/16 06:36 General appearance: Present: A&O X 3, pleasant, answers questions appropriately - Head Head exam: Present: atraumatic, normocephalic - Eye Eye exam: Present: PERRL, conjuntiva pink, sclera anicteric Pupils: Present: PERRL - Neck Neck exam general surgery: Present: supple, trachea midline. Absent: lymphadenopathy - Respiratory Respiratory exam: Present: CTAB. Absent: accessory muscle use, rales, rhonchi, wheezes - Cardiovascular Cardiovascular exam: Present: RRR, +S1, +S2. Absent: diastolic murmur, gallop, rubs, systolic murmur - GI/Abdominal GI/Abdominal exam: Present: normal bowel sounds, soft, no peritoneal signs. Absent: distended, tenderness - Additional comments: + Costovertebral angle tenderness - Extremities Exam Extremities exam: Present: warm, radial pulses palpable and symetrical. Absent : calf tenderness, cyanotic, pedal edema - Neurological Exam Neurological exam: Present: CN II-XII intact, oriented X3, no focal deficits. Absent: pronater drift, facial droop, speech deficit - Skin Skin exam: Present: dry, intact Internal Medicine: Result - Labs CBC & Chem 7: 04/15/16 06:10 04/15/16 06:10 Labs: Short CBC 04/15/16 Range/Units 06:10 WBC 7.5 (4.3-11.1) K/mcL Hgb 8.6 L (12.9-16.9) g/dL Hct 25.3 L (37.5-50.1) % Plt Count 406 H (140-400) K/mcL Neutrophils # 4.4 (1.6-8.9) K/mcL BMP 04/15/16 06:10 Sodium 141 Potassium 4.0 Chloride 109 Carbon Dioxide 21 BUN 29 H Creatinine 1.84 H Glucose 77 Calcium 8.3 L - VTE Documentation of Mechanical Device: Venous foot pump, device Consult Discharge Plan - Plan Referrals: Joshua Sanchez, [employer]TER [Primary Care Provider] - <Jayjay Gabriel - Last Filed: 04/15/16 18:00> Date of Encounter: 04/15/16 - Constitutional Vitals: Temp Pulse Resp BP Pulse Ox 98.0 F 86 14 114/75 97 04/15/16 15:26 04/15/16 15:26 04/15/16 15:26 04/15/16 15:26 04/15/16 15:26 Internal Medicine: Result - Labs CBC & Chem 7: 04/15/16 06:10 04/15/16 06:10 Labs: Short CBC 04/15/16 Range/Units 06:10 WBC 7.5 (4.3-11.1) K/mcL Hgb 8.6 L (12.9-16.9) g/dL Hct 25.3 L (37.5-50.1) % Plt Count 406 H (140-400) K/mcL Neutrophils # 4.4 (1.6-8.9) K/mcL [facility] 04/15/16 06:10 Sodium 141 Potassium 4.0 Chloride 109 Carbon Dioxide 21 BUN 29 H Creatinine 1.84 H Glucose 77 Calcium 8.3 L - Attending Attestation I examined this patient and my medical decision-making was reviewed with the IRRIGATOR HEAD/PA/Advanced Practice Nurse/Resident Physician. I agree with the documented findings, disposition and treatment plan as described except to the extent set forth below. Enterococcus in urine, ampicilin started. involved, or on monday in the pm. D/W patient.
--- NOTE | 2016-04-15 08:21 | Nephrology Progress Note ---
Date of Encounter: 04/15/16 Time of Encounter: 08:10 - Assessment and Plan (1) APOORVA (acute kidney injury) Current Visit: No Status: Acute Renal fct slowly improving. Creat 1.84. Will continue to monitor. Subjective Interval history: Sitting up in chair. States feeling better. States to have ureteral stents replaced on Monday. Objective - Vital Signs Vital signs: Vital Signs Temp Pulse Resp BP Pulse Ox 04/15/16 06:36 97.8 F 82 16 132/78 98 04/14/16 23:43 97.8 F 85 17 118/69 93 L 04/14/16 20:17 98.2 F 87 16 128/76 97 04/14/16 16:18 98.1 F 87 18 115/71 98 04/14/16 10:19 98.5 F 84 16 123/67 97 Intake and Output 04/14/16 04/15/16 04/15/16 23:59 07:59 15:59 Intake Total 1000 / 1000 Output Total 1880 / 1880 2150 / 2150 Balance -1880 / -1880 -1150 / -1150 Intake: IV Fluids 1000 / 1000 0.9 % Sodium Chloride 1, 1000 / 1000 000 ML @ 75 mls/hr IVC . [id number] [facility] Rx#: [id number] Output: Urine 0 / 1880 2149 / 0 Other: Blood Glucose* 132 79 - General Appearance General appearance: Present: well-developed, well-nourished, appears started age EENT: Present: mucous membranes moist Neck: Present: no JVD Respiratory: Present: clear Cardiology: Present: no edema, regular rate, regular rhythm Gastrointestinal: Present: normoactive bowel sounds, no tenderness Additional Comments: admits right flank discomfort Neurologic: Present: alert and oriented x3 Psychiatric: Present: mood/affect appropriate, cooperative - Lab 04/15/16 06:10 04/15/16 06:10 Most recent lab results Calcium 8.3 mg/dL (8.6-10.8) L 04/15/16 06:10 Phosphorus 4.5 mg/dL (2.3-4.7) 04/14/16 06:07 Magnesium 1.6 mg/dL (1.6-2.6) 04/14/16 06:07 - VTE Documentation of Mechanical Device: Venous foot pump, device Consult Discharge Plan - Plan Referrals: Joshua Sanchez, BUILDING ANALYST/SUPERVISOR [Primary Care Provider] -
[2016-04-15] MEDS: amLODIPine 5 MG TABLET PO SCH (08:51)
[2016-04-15] MEDS: Fluconazole 100 MG TABLET PO SCH (08:51)
[2016-04-15] MEDS ORDERED: Levofloxacin 750 MG/150 ML 750 MG/150 ML BAG IVPB SCH (10:00)
[2016-04-15] MEDS: Ampicillin 500 MG in 0.9 % Sodium Chloride Mini Bag 100 ML IVPB SCH ×2 (17:17→23:07)
[2016-04-15] MEDS ORDERED: Ampicillin 500 MG VIAL IVPB SCH (18:00)
[2016-04-15] MEDS: Insulin DETEMIR 100 UNIT/ML X5UNITS SQ SCH (21:21)
[2016-04-16 04:59] LABS: Basophils % 0.6 %; Eosinophils # 0.2 K/mcL (0.0-0.6); Eosinophils % 3.3 %; Hematocrit 26.5 % (37.5-50.1); Hemoglobin 8.6 g/dL (12.9-16.9); Immature Granulocytes % 0.6 % (0-4); Lymphocytes # 2.3 K/mcL (0.6-4.6); Lymphocytes % 32.3 %; Mean Corpuscular HGB Conc 32.5 g/dL (31.6-35.5); Mean Corpuscular Hemoglobin 28.2 pg (28.0-33.3); Mean Corpuscular Volume 86.9 fL (83.0-100.0); Mean Platelet Volume 8.8 fL (9.4-12.4); Monocytes # 0.5 K/mcL (0.0-1.3); Monocytes % 7.4 %; Neutrophils # 3.9 K/mcL (1.6-8.9); Platelet Count 412 K/mcL (140-400); Red Blood Count 3.05 M/mcL (4.19-5.50); Red Cell Distribution Width 13.6 % (11.5-14.5); Segmented Neutrophils % 55.8 %
[2016-04-16 05:11] LABS: Calcium 8.4 mg/dL (8.6-10.8); Potassium 3.6 mEq/L (3.5-4.5)
[2016-04-16] MEDS: Ampicillin 500 MG in 0.9 % Sodium Chloride Mini Bag 100 ML IVPB SCH ×4 (05:11→21:45)
[2016-04-16] MEDS: *HR* Heparin 5,000 UNIT/ML VIAL SQ SCH ×2 (06:09→16:36)
[2016-04-16] MEDS: amLODIPine 5 MG TABLET PO SCH (07:42)
[2016-04-16] MEDS: Fluconazole 100 MG TABLET PO SCH (07:43)
[2016-04-16] MEDS: Insulin LISPRO 300 UNITS/3 ML VIAL SQ SCH ×6 (07:45→16:35)
--- NOTE | 2016-04-16 11:25 | Nephrology Progress Note ---
Date of Encounter: 04/16/16 Time of Encounter: 11:22 - Assessment and Plan (1) APOORVA (acute kidney injury) Current Visit: Yes Status: Acute pre renal sec to increased PO intake in the setting of UTI. IV fluids have been DC'd, Serum creatinine is slowly trending down to baseline and nonoliguric (2) Prostate cancer Current Visit: Yes Status: Acute h/o metastatic prostate cancer with indwelling ureteral stents and recurent UTI 's Subjective Principal diagnosis: f/u of Acute on Chronic Renal failure Interval history: Stable overnight, sitting up in chair. at bedside. Denies voiding problems, taking by mouth Objective - Vital Signs Vital signs: Vital Signs Temp Pulse Resp BP Pulse Ox 04/16/16 11:06 97.4 F L 94 18 137/84 97 04/16/16 06:16 97.8 F 81 18 147/75 98 04/16/16 00:03 97.9 F 83 17 124/78 97 04/15/16 19:09 97.4 F L 85 15 128/76 95 04/15/16 15:26 98.0 F 86 14 114/75 97 Intake and Output 04/15/16 04/16/16 04/16/16 23:59 07:59 15:59 Intake Total 440 / 440 100 / 100 240 / 240 Output Total 3080 / 3080 Balance 440 / 440 -2980 / -2980 240 / 240 Intake: IV Fluids 200 / 200 100 / 100 Ampicillin 500 MG In 0.9 200 / 200 100 / 100 % Sodium Chloride (Mini- Bag +) 100 ML @ 200 mls/ hr IVPB Q6H [facility] Rx#: [id number] Oral 240 / 240 240 / 240 Output: Urine 3080 / 3080 Other: Meal Dinner Breakfast Percent of Meal Consumed 100% 100% # Voids 2 1 Blood Glucose* 188 88 169 - General Appearance Exam: CVS; s1s2 present, regular, no murmurs RESP; good air entry, clear to auscultation ABD; soft, NT, BS present, no organomegaly, no bruits EXT; no edema, DP pulses palpable. 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
--- NOTE | 2016-04-16 16:25 | Internal Med Progress Note ---
<Ric Ball - Last Filed: 04/16/16 16:27> Date of Encounter: 04/16/16 Time of Encounter: 10:40 - Assessment and plan (1) Complicated UTI (urinary tract infection) Current Visit: Yes Status: Acute Assessment and plan: 04/15/16 Urine culture grew Enterococcus faecalis which is pansensitive Patient has been on Rocephin for another recent UTI without symptomatic improvement Will switch antibiotic from Levaquin to ampicillin 04/14/16 Patient has had recurrent UTIs. S/P stenting of the ureteral orifices. Blood cultures were sent and are penging. Urine cultures have grown GPC. I spoke with the lab and this is preliminarily enterococcus. also culture from 04/02 has grown Arline tropicalis. we will send this for sensitivity. Recurrent infection may be secondary to infection forming a nidus on stents. Possibly Arline species that are resistant to fluconazole. May possibly have stents replaced. If so we will continue fluconazole and await sensitivty. continue Rocephin until final sensitivity and culture is available. 04/17/15 Patient stable Continue Ampicillin for vaca sensitive Enterrococcus Await cultures for arline tropicalis. Stent removal for 04/19/15 NPO ordered placed for 04/18/16 (2) APOORVA (acute kidney injury) Current Visit: Yes Status: Acute Assessment and plan: Improving Near baseline. (3) Prostate cancer Current Visit: Yes Status: Acute Assessment and plan: currently on Lupron follow with Oncology as an Outpatient (4) Fungus present in urine Current Visit: Yes Status: Acute Assessment and plan: continue fluconazole Glycemic control Await final sensitivity report. l (5) Diabetes Current Visit: Yes Status: Acute Assessment and plan: At goal Continue Sliding scale and basal insulin Qualifiers: Qualified Code(s): E11.9 - Type 2 diabetes mellitus without complications (6) DVT prophylaxis Current Visit: Yes Status: Acute Assessment and plan: EPCDs in place. Patient is also on heparin - Subjective Interval history: No major events overnight. Patient deneis pain or discomfort. He deneis dyspnea , He has no complaints this AM. - Constitutional Vitals: Temp Pulse Resp BP Pulse Ox 97.7 F 91 18 158/78 96 04/16/16 15:31 04/16/16 15:31 04/16/16 15:31 04/16/16 15:31 04/16/16 15:31 General appearance: Present: A&O X 3, pleasant, answers questions appropriately - Head Head exam: Present: atraumatic, normocephalic - Eye Eye exam: Present: PERRL, conjuntiva pink, sclera anicteric Pupils: Present: PERRL - Neck Neck exam general surgery: Present: supple, trachea midline. Absent: lymphadenopathy - Respiratory Respiratory exam: Present: CTAB. Absent: accessory muscle use, rales, rhonchi, wheezes - Cardiovascular Cardiovascular exam: Present: RRR, +S1, +S2. Absent: diastolic murmur, gallop, rubs, systolic murmur - GI/Abdominal GI/Abdominal exam: Present: normal bowel sounds, soft, no peritoneal signs. Absent: distended, tenderness - Extremities Exam Extremities exam: Present: warm, radial pulses palpable and symetrical. Absent : calf tenderness, cyanotic, pedal edema - Skin Skin exam: Present: dry, intact Internal Medicine: Result - Labs CBC & Chem 7: 04/16/16 04:22 04/16/16 04:22 Labs: Short CBC 04/16/16 Range/Units 04:22 WBC 7.0 (4.3-11.1) K/mcL Hgb 8.6 L (12.9-16.9) g/dL Hct 26.5 L (37.5-50.1) % Plt Count 412 H (140-400) K/mcL Neutrophils # 3.9 (1.6-8.9) K/mcL BMP 04/16/16 04:22 Sodium 138 Potassium 3.6 Chloride 108 Carbon Dioxide 21 BUN 24 Creatinine 1.72 H Glucose 85 Calcium 8.4 L - VTE Documentation of Mechanical Device: Venous foot pump, device Consult Discharge Plan - Plan Referrals: Joshua Sanchez, [employer]ER [employer]ING [Primary Care Provider] - <Jayjay Gabriel - Last Filed: 04/16/16 16:36> Date of Encounter: 04/16/16 - Constitutional Vitals: Temp Pulse Resp BP Pulse Ox 97.7 F 91 18 158/78 96 04/16/16 15:31 04/16/16 15:31 04/16/16 15:31 04/16/16 15:31 04/16/16 15:31 Internal Medicine: Result - Labs CBC & Chem 7: 04/16/16 04:22 04/16/16 04:22 Labs: Short CBC 04/16/16 Range/Units 04:22 WBC 7.0 (4.3-11.1) K/mcL Hgb 8.6 L (12.9-16.9) g/dL Hct 26.5 L (37.5-50.1) % Plt Count 412 H (140-400) K/mcL Neutrophils # 3.9 (1.6-8.9) K/mcL BMP 04/16/16 04:22 Sodium 138 Potassium 3.6 Chloride 108 Carbon Dioxide 21 BUN 24 Creatinine 1.72 H Glucose 85 Calcium 8.4 L - Attending Attestation I examined this patient and my medical decision-making was reviewed with the CUSTOMER ASSISTANCE ASSOCIATE/PA/Advanced Practice Nurse/Resident Physician. I agree with the documented findings, disposition and treatment plan as described except to the extent set forth below. She was seen and examined, continue with IV antibiotics. For a stent removal on Monday. D/W the patient and his family.
[2016-04-16] MEDS: Insulin DETEMIR 100 UNIT/ML X5UNITS SQ SCH (20:46)
[2016-04-17] MEDS: Ampicillin 500 MG in 0.9 % Sodium Chloride Mini Bag 100 ML IVPB SCH ×4 (03:56→21:05)
[2016-04-17] MEDS: *HR* Heparin 5,000 UNIT/ML VIAL SQ SCH ×2 (04:53→14:17)
[2016-04-17 06:19] LABS: Immature Reticulocyte % 11.5 % (11.0-38.0); Retculocyte # 0.05 M/mcL (0.05-0.10); Reticulocyte % 1.6 % (1.6-2.8)
[2016-04-17 06:35] LABS: Albumin 2.6 g/dL (3.5-5.0); Phosphorous 4.1 mg/dL (2.3-4.7); Potassium 3.9 mEq/L (3.5-4.5)
[2016-04-17 07:10] LABS: Folate 3.4 ng/mL (7.0-31.4)
[2016-04-17] MEDS: Lactobacillus 1 EACH CAP.SPRINK PO SCH (07:51)
[2016-04-17] MEDS: Fluconazole 100 MG TABLET PO SCH (07:51)
[2016-04-17] MEDS: amLODIPine 5 MG TABLET PO SCH (07:52)
[2016-04-17] MEDS: Insulin LISPRO 300 UNITS/3 ML VIAL SQ SCH ×6 (07:53→16:41)
[2016-04-17] MEDS: Folic Acid 1 MG TABLET PO SCH (09:28)
--- NOTE | 2016-04-17 11:36 | Nephrology Progress Note ---
Date of Encounter: 04/17/16 Time of Encounter: 11:34 - Assessment and Plan (1) APOORVA (acute kidney injury) Current Visit: Yes Status: Acute pre renal sec to increased PO intake in the setting of UTI. Serum cr is stabilizing in the high 1 range. Has underlying CKD with baseline creatinine mid to high 1 range. Currently not on IV fluids (2) Prostate cancer Current Visit: Yes Status: Acute h/o metastatic prostate cancer, has ureteral stents and recurent UTI 's Urine culture from 04/13/2016 positive for enterococcus. on ampicillin and diflucan Subjective Principal diagnosis: f/u of Acute on Chronic Renal failure Interval history: Drinking plenty of fluid, Denies any concerns. For ureteral stent change in a.m Objective - Vital Signs Vital signs: Vital Signs Temp Pulse Resp BP Pulse Ox 04/17/16 11:22 98.2 F 98 18 131/74 99 04/17/16 06:24 98.0 F 80 20 131/78 94 L 04/17/16 00:00 97.5 F L 82 16 136/78 99 04/16/16 20:34 97.9 F 85 18 136/82 97 04/16/16 15:31 97.7 F 91 18 158/78 96 Intake and Output 04/16/16 04/17/16 04/17/16 23:59 07:59 15:59 Intake Total 640 / 640 350 / 350 600 / 600 Output Total 1710 / 1710 900 / 900 720 / 720 Balance -1070 / -1070 -550 / -550 -120 / -120 Intake: IV Fluids 200 / 200 100 / 100 Ampicillin 500 MG In 0.9 200 / 200 100 / 100 % Sodium Chloride (Mini- Bag +) 100 ML @ 200 mls/ hr IVPB Q6H [facility] Rx#: [id number] Oral 440 / 440 250 / 250 600 / 600 Output: Urine 1710 / 1710 900 / 900 720 / 720 Other: Meal Dinner Breakfast Percent of Meal Consumed 100% 100% Stool Size Moderate Stool Consistency formed Stool Characteristics Normal for Patient Stool Color Brown # Voids 2 Blood Glucose* 153 87 148 - General Appearance Exam: CVS; s1s2 present, regular, no murmurs RESP; good air entry, clear ABD; soft, NT, BS present, EXT; no edema - Lab 04/16/16 04:22 04/17/16 05:43 Most recent lab results Calcium 9.0 mg/dL (8.6-10.8) 04/17/16 05:43 Phosphorus 4.1 mg/dL (2.3-4.7) 04/17/16 05:43 Magnesium 1.6 mg/dL (1.6-2.6) 04/14/16 06:07 - VTE Documentation of Mechanical Device: Intermittent pneumatic compression device Consult Discharge Plan - Plan Referrals: Joshua Sanchez, [facility] [Primary Care Provider] -
[2016-04-17] MEDS ORDERED: Insulin DETEMIR 100 UNIT/ML X5UNITS SQ SCH (18:13)
--- NOTE | 2016-04-17 18:14 | Internal Med Progress Note ---
<Ric Ball - Last Filed: 04/17/16 18:27> Date of Encounter: 04/17/16 Time of Encounter: 11:40 - Assessment and plan (1) Complicated UTI (urinary tract infection) Current Visit: Yes Status: Acute Assessment and plan: 04/15/16 Urine culture grew Enterococcus faecalis which is pansensitive Patient has been on Rocephin for another recent UTI without symptomatic improvement Will switch antibiotic from Levaquin to ampicillin 04/14/16 Patient has had recurrent UTIs. S/P stenting of the ureteral orifices. Blood cultures were sent and are penging. Urine cultures have grown GPC. I spoke with the lab and this is preliminarily enterococcus. also culture from 04/02 has grown Arline tropicalis. we will send this for sensitivity. Recurrent infection may be secondary to infection forming a nidus on stents. Possibly Arline species that are resistant to fluconazole. May possibly have stents replaced. If so we will continue fluconazole and await sensitivty. continue Rocephin until final sensitivity and culture is available. 04/17/15 Patient stable Continue Ampicillin for vaca sensitive Enterrococcus Await cultures for arline tropicalis. Stent removal for 04/19/15 NPO ordered placed for 04/18/16 04/17/16 patient stable Arline cultures from 04/02 pending Stent removal tomorrow evening. (2) APOORVA (acute kidney injury) Current Visit: Yes Status: Acute Assessment and plan: mild trend up in SCR continue to follow closely. (3) Prostate cancer Current Visit: Yes Status: Acute Assessment and plan: currently on Lupron follow with Oncology as an Outpatient (4) Fungus present in urine Current Visit: Yes Status: Acute Assessment and plan: continue fluconazole Glycemic control Await final sensitivity report. l (5) Diabetes Current Visit: Yes Status: Acute Assessment and plan: At goal Continue Sliding scale and basal insulin we will half the basal dose of insulin tonight as he will be NPO tomorrow. Qualifiers: Qualified Code(s): E11.9 - Type 2 diabetes mellitus without complications (6) DVT prophylaxis Current Visit: Yes Status: Acute Assessment and plan: EPCDs in place. Patient is also on heparin - Subjective Interval history: No major events overnight. Patient denies pain or discomfort. He deneies dyspnea , He has no complaints this AM. His is also present and has no concerns as well. scheduled stent removal tomorrow. - Constitutional Vitals: Temp Pulse Resp BP Pulse Ox 98.1 F 84 20 134/78 93 L 04/17/16 15:43 04/17/16 15:43 04/17/16 15:43 04/17/16 15:43 04/17/16 15:43 General appearance: Present: A&O X 3, pleasant, answers questions appropriately - Head Head exam: Present: atraumatic, normocephalic - Eye Eye exam: Present: PERRL, conjuntiva pink, sclera anicteric Pupils: Present: PERRL - Neck Neck exam general surgery: Present: supple, trachea midline. Absent: lymphadenopathy - Respiratory Respiratory exam: Present: CTAB. Absent: accessory muscle use, rales, rhonchi, wheezes - Cardiovascular Cardiovascular exam: Present: RRR, +S1, +S2. Absent: diastolic murmur, gallop, rubs, systolic murmur - GI/Abdominal GI/Abdominal exam: Present: normal bowel sounds, soft, no peritoneal signs. Absent: distended, tenderness - Extremities Exam Extremities exam: Present: warm, radial pulses palpable and symetrical. Absent : calf tenderness, cyanotic, pedal edema - Skin Skin exam: Present: dry, intact Internal Medicine: Result - Labs CBC & Chem 7: 04/16/16 04:22 04/17/16 05:43 Labs: BMP 04/17/16 05:43 Sodium 140 Potassium 3.9 Chloride 108 Carbon Dioxide 22 BUN 25 Creatinine 1.86 H Glucose 88 Calcium 9.0 Liver Function 04/17/16 Range/Units 05:43 Albumin 2.6 L (3.5-5.0) g/dL - VTE Documentation of Mechanical Device: Intermittent pneumatic compression device Consult Discharge Plan - Plan Referrals: Joshua Sanchez, [employer] MAINTENANCE INSPECT[employer] [Primary Care Provider] - <Jayjay Gabriel - Last Filed: 04/18/16 07:29> Date of Encounter: 04/18/16 - Constitutional Vitals: Temp Pulse Resp BP Pulse Ox 97.4 F L 82 16 127/78 95 04/18/16 06:44 04/18/16 06:44 04/18/16 06:44 04/18/16 06:44 04/18/16 06:44 Internal Medicine: Result - Labs CBC & Chem 7: 04/18/16 04:16 04/18/16 04:16 Labs: Short CBC 04/18/16 Range/Units 04:16 WBC 6.8 (4.3-11.1) K/mcL Hgb 8.5 L (12.9-16.9) g/dL Hct 25.1 L (37.5-50.1) % Plt Count 425 H (140-400) K/mcL Neutrophils # 3.5 (1.6-8.9) K/mcL BMP 04/18/16 04:16 Sodium 139 Potassium 3.9 Chloride 108 Carbon Dioxide 21 BUN 26 Creatinine 1.70 H Glucose 117 H Calcium 8.2 L Liver Function 04/18/16 Range/Units 04:16 Albumin 2.5 L (3.5-5.0) g/dL - Attending Attestation I examined this patient and my medical decision-making was reviewed with the WHEEL WORKER/PA/Advanced Practice Nurse/Resident Physician. I agree with the documented findings, disposition and treatment plan as described except to the extent set forth below. Mr. Rivera has been evaluated. Continue with treatment for urinary tract infection with both ampicillin and fluconazole. For removal of the stents tomorrow as per urology. Continue current management. Kidney function tests stable. Encourage by mouth hydration.
[2016-04-18] MEDS: Ampicillin 500 MG in 0.9 % Sodium Chloride Mini Bag 100 ML IVPB SCH ×3 (03:14→20:51)
[2016-04-18] MEDS: *HR* Heparin 5,000 UNIT/ML VIAL SQ SCH ×2 (04:06→17:56)
[2016-04-18 04:54] LABS: Basophils % 0.6 %; Eosinophils # 0.3 K/mcL (0.0-0.6); Eosinophils % 4.3 %; Hematocrit 25.1 % (37.5-50.1); Hemoglobin 8.5 g/dL (12.9-16.9); Immature Granulocytes % 0.3 % (0-4); Lymphocytes # 2.5 K/mcL (0.6-4.6); Lymphocytes % 36.6 %; Mean Corpuscular HGB Conc 33.9 g/dL (31.6-35.5); Mean Corpuscular Hemoglobin 29.5 pg (28.0-33.3); Mean Corpuscular Volume 87.2 fL (83.0-100.0); Monocytes # 0.4 K/mcL (0.0-1.3); Monocytes % 6.5 %; Neutrophils # 3.5 K/mcL (1.6-8.9); Platelet Count 425 K/mcL (140-400); Red Blood Count 2.88 M/mcL (4.19-5.50); Red Cell Distribution Width 13.6 % (11.5-14.5); Segmented Neutrophils % 51.7 %
[2016-04-18 05:06] LABS: Albumin 2.5 g/dL (3.5-5.0); Calcium 8.2 mg/dL (8.6-10.8); Phosphorous 3.9 mg/dL (2.3-4.7); Potassium 3.9 mEq/L (3.5-4.5)
--- NOTE | 2016-04-18 06:05 | Internal Med Progress Note ---
<QuinnRic Shine - Last Filed: 04/18/16 09:50> Date of Encounter: 04/18/16 Time of Encounter: 06:03 - Assessment and plan (1) Complicated UTI (urinary tract infection) Current Visit: Yes Status: Acute Assessment and plan: 04/15/16 Urine culture grew Enterococcus faecalis which is pansensitive Patient has been on Rocephin for another recent UTI without symptomatic improvement Will switch antibiotic from Levaquin to ampicillin 04/14/16 Patient has had recurrent UTIs. S/P stenting of the ureteral orifices. Blood cultures were sent and are penging. Urine cultures have grown GPC. I spoke with the lab and this is preliminarily enterococcus. also culture from 04/02 has grown Arline tropicalis. we will send this for sensitivity. Recurrent infection may be secondary to infection forming a nidus on stents. Possibly Arline species that are resistant to fluconazole. May possibly have stents replaced. If so we will continue fluconazole and await sensitivty. continue Rocephin until final sensitivity and culture is available. 04/17/15 Patient stable Continue Ampicillin for vaca sensitive Enterrococcus Await cultures for arline tropicalis. Stent removal for 04/19/15 NPO ordered placed for 04/18/16 04/17/16 patient stable Arline cultures from 04/02 pending Stent removal tomorrow evening. 04/18/16 Stable Stent exchange today. continue ampicillin and fluconazole Awaiting fungal culture results from 04/02 Possible DC in Am if Ok with Urology (2) APOORVA (acute kidney injury) Current Visit: Yes Status: Acute Assessment and plan: mild trend down in SCR Near baseline good urine output. continue to follow closely. (3) Prostate cancer Current Visit: Yes Status: Acute Assessment and plan: currently on Lupron follow with Oncology as an Outpatient (4) Fungus present in urine Current Visit: Yes Status: Acute Assessment and plan: continue fluconazole Glycemic control Await final sensitivity report. l (5) Diabetes Current Visit: Yes Status: Acute Assessment and plan: half dosee of sliding basal given as he will be NPO today. will change to Q 6 H sliding scale for closer monitoring while NPO. Qualifiers: Qualified Code(s): E11.9 - Type 2 diabetes mellitus without complications (6) DVT prophylaxis Current Visit: Yes Status: Acute Assessment and plan: EPCDs in place. Patient is also on heparin - Subjective Interval history: No major events overnight. Patient has no new complaints this morning. Specifically denies any chest pain, dyspnea, abdominal pain, dysuria, hematuria. He has been nothing by mouth after midnight. Will have cystoscopy with stent exchange around 2 PM this afternoon. No further complaints or concerns at this time. - Constitutional Vitals: Temp Pulse Resp BP Pulse Ox 98.3 F 81 16 129/72 97 04/18/16 03:32 04/18/16 03:32 04/18/16 03:32 04/18/16 03:32 04/18/16 03:32 General appearance: Present: A&O X 3, pleasant, answers questions appropriately - Head Head exam: Present: atraumatic, normocephalic - Eye Eye exam: Present: PERRL, conjuntiva pink, sclera anicteric Pupils: Present: PERRL - Neck Neck exam general surgery: Present: supple, trachea midline. Absent: lymphadenopathy - Respiratory Respiratory exam: Present: CTAB. Absent: accessory muscle use, rales, rhonchi, wheezes - Cardiovascular Cardiovascular exam: Present: RRR, +S1, +S2. Absent: diastolic murmur, gallop, rubs, systolic murmur - GI/Abdominal GI/Abdominal exam: Present: normal bowel sounds, soft, no peritoneal signs. Absent: distended, tenderness - Extremities Exam Extremities exam: Present: warm, radial pulses palpable and symetrical. Absent : calf tenderness, cyanotic, pedal edema - Skin Skin exam: Present: dry, intact Internal Medicine: Result - Labs CBC & Chem 7: 04/18/16 04:16 04/18/16 04:16 Labs: Short CBC 04/18/16 Range/Units 04:16 WBC 6.8 (4.3-11.1) K/mcL Hgb 8.5 L (12.9-16.9) g/dL Hct 25.1 L (37.5-50.1) % Plt Count 425 H (140-400) K/mcL Neutrophils # 3.5 (1.6-8.9) K/mcL BMP 04/17/16 04/18/16 05:43 04:16 Sodium 140 139 Potassium 3.9 3.9 Chloride 108 108 Carbon Dioxide 22 21 BUN 25 26 Creatinine 1.86 H 1.70 H Glucose 88 117 H Calcium 9.0 8.2 L Liver Function 04/17/16 04/18/16 Range/Units 05:43 04:16 Albumin 2.6 L 2.5 L (3.5-5.0) g/dL - VTE Documentation of Mechanical Device: Intermittent pneumatic compression device Consult Discharge Plan - Plan Referrals: Joshua Sanchez, [employer] [Primary Care Provider] - <Jayjay Gabriel - Last Filed: 04/18/16 18:04> - Constitutional Vitals: Temp Pulse Resp BP Pulse Ox 97.4 F L 91 14 140/85 97 04/18/16 17:23 04/18/16 17:23 04/18/16 17:23 04/18/16 17:23 04/18/16 17:23 Internal Medicine: Result - Labs CBC & Chem 7: 04/18/16 04:16 04/18/16 04:16 Labs: Short CBC 04/18/16 Range/Units 04:16 WBC 6.8 (4.3-11.1) K/mcL Hgb 8.5 L (12.9-16.9) g/dL Hct 25.1 L (37.5-50.1) % Plt Count 425 H (140-400) K/mcL Neutrophils # 3.5 (1.6-8.9) K/mcL BMP 04/18/16 04:16 Sodium 139 Potassium 3.9 Chloride 108 Carbon Dioxide 21 BUN 26 Creatinine 1.70 H Glucose 117 H Calcium 8.2 L Liver Function 04/18/16 Range/Units 04:16 Albumin 2.5 L (3.5-5.0) g/dL - Impressions Impressions Retrograde Pyelogram 04/18/16 15:30 IMPRESSION: Intraprocedural fluoroscopic spot images as above. See separate procedure report for more information. D/ / Osiris Rodriguez MD / Osiris Rodriguez MD Interpreting Provider: Osiris Rodriguez MD - Attending Attestation I examined this patient and my medical decision-making was reviewed with the DIRECTOR OF KIDS/PA/Advanced Practice Nurse/Resident Physician. I agree with the documented findings, disposition and treatment plan as described except to the extent set forth below. UTI on ampicillin and fluconazole. Enterobacter isolated, treatment as per sensitivity report. Recurrent UTI (arline infections in the past), history of prostate cancer. Cystoscopy, bilateral ureteral stent exchange, right retrograde pyelogram done today. D/C in am if ok with urology.
[2016-04-18] MEDS: Folic Acid 1 MG TABLET PO SCH (07:56)
[2016-04-18] MEDS: Lactobacillus 1 EACH CAP.SPRINK PO SCH (07:56)
[2016-04-18] MEDS: Fluconazole 100 MG TABLET PO SCH (07:56)
[2016-04-18] MEDS: Insulin LISPRO 300 UNITS/3 ML VIAL SQ SCH ×2 (07:56→12:37)
[2016-04-18] MEDS: amLODIPine 5 MG TABLET PO SCH (08:34)
--- NOTE | 2016-04-18 08:39 | Nephrology Progress Note ---
Date of Encounter: 04/18/16 Time of Encounter: 08:37 - Assessment and Plan (1) Chronic kidney disease, stage III (moderate) Current Visit: Yes Status: Acute Patient has stage III chronic kidney disease in the setting of prostate cancer and post renal obstruction. Also in the setting of complicated urinary tract infections. The patient's renal function is currently stable. He is on IV antibiotics. He is going to undergo replacement of the ureteral stents later today. (2) Prostate cancer Current Visit: Yes Status: Acute (3) UTI (urinary tract infection) Current Visit: Yes Status: Acute Qualifiers: Urinary tract infection type: acute cystitis Hematuria presence: without hematuria Qualified Code(s): N30.00 - Acute cystitis without hematuria Subjective Principal diagnosis: f/u of Acute on Chronic Renal failure Interval history: The patient reports she is feeling better. He is scheduled to undergo replacement of his stents later today. His renal function remains stable. Objective - Vital Signs Vital signs: Vital Signs Temp Pulse Resp BP Pulse Ox 04/18/16 06:44 97.4 F L 82 16 127/78 95 04/18/16 03:32 98.3 F 81 16 129/72 97 04/17/16 23:36 98.2 F 80 15 128/60 98 04/17/16 20:43 97.8 F 97 16 159/79 99 04/17/16 15:43 98.1 F 84 20 134/78 93 L 04/17/16 11:22 98.2 F 98 18 131/74 99 Intake and Output 04/17/16 04/18/16 04/18/16 23:59 07:59 15:59 Intake Total 950 / 950 100 / 100 Output Total 0 / 0 2079 Balance -1390 / -1390 -1979 / Intake: IV Fluids 200 / 200 100 / 100 Ampicillin 500 MG In 0.9 200 / 200 100 / 100 % Sodium Chloride (Mini- Bag +) 100 ML @ 200 mls/ hr IVPB Q6H [facility] Rx#: [id number] Oral 750 / 750 0 / 0 Output: Urine 2339 / 0 2079 Other: Meal Dinner Percent of Meal Consumed 25% Stool Size Moderate Stool Consistency formed Blood Glucose* 186 149 - General Appearance Exam: Patient is alert and oriented. He is in no acute distress. Lungs essentially clear to auscultation anteriorly. Heart regular rate and rhythm. Abdomen is benign. There is no lower extremity swelling. - Lab 04/18/16 04:16 04/18/16 04:16 Most recent lab results Calcium 8.2 mg/dL (8.6-10.8) L 04/18/16 04:16 Phosphorus 3.9 mg/dL (2.3-4.7) 04/18/16 04:16 Magnesium 1.6 mg/dL (1.6-2.6) 04/14/16 06:07 - VTE Documentation of Mechanical Device: Intermittent pneumatic compression device Consult Discharge Plan - Plan Referrals: Joshua Sanchez, [facility] [Primary Care Provider] -
--- NOTE | 2016-04-18 10:28 | Urology Progress Note ---
Date of Encounter: 04/18/16 Time of Encounter: 10:26 - Assessment and Plan (1) Prostate cancer Current Visit: Yes Status: Acute Assessment and plan: PSA trending down. Will defer further management per oncology / radiation oncology. (2) UTI (urinary tract infection) Current Visit: Yes Status: Acute Assessment and plan: Currently on ampicillin for enterococcus. Will change out stents today. Plan for cystoscopy and bilateral stent exchange. All risks were informed. He is willing to proceed. NPO. Qualifiers: Urinary tract infection type: acute cystitis Hematuria presence: without hematuria Qualified Code(s): N30.00 - Acute cystitis without hematuria Progress Note Narrative: Did well over the weekend. Enterococcus growing out. Pain is minimal. No fevers or chills. Objective Initial Vital Signs Temp Pulse Resp BP Pulse Ox 97.3 F L 90 18 132/79 97 04/13/16 10:37 04/13/16 10:37 04/13/16 10:37 04/13/16 10:37 04/13/16 10:37 - General physical appearance Present: well developed, well nourished, no distress - Respiratory Present: normal respiratory effort - Abdomen Present: soft - Labs 04/18/16 04:16 04/18/16 04:16 Diabetes panel 04/18/16 Range/Units 04:16 Sodium 139 (136-145) mEq/L Potassium 3.9 (3.5-4.5) mEq/L Chloride 108 (98-109) mEq/L Carbon Dioxide 21 (19-29) mEq/L BUN 26 (8-26) mg/dL Creatinine 1.70 H (0.72-1.25) mg/dL Glucose 117 H (70-99) mg/dL Calcium 8.2 L (8.6-10.8) mg/dL Albumin 2.5 L (3.5-5.0) g/dL Calcium panel 04/18/16 Range/Units 04:16 Calcium 8.2 L (8.6-10.8) mg/dL Phosphorus 3.9 (2.3-4.7) mg/dL Albumin 2.5 L (3.5-5.0) g/dL Pituitary panel 04/18/16 Range/Units 04:16 Sodium 139 (136-145) mEq/L Potassium 3.9 (3.5-4.5) mEq/L Chloride 108 (98-109) mEq/L Carbon Dioxide 21 (19-29) mEq/L BUN 26 (8-26) mg/dL Creatinine 1.70 H (0.72-1.25) mg/dL Glucose 117 H (70-99) mg/dL Calcium 8.2 L (8.6-10.8) mg/dL Adrenal panel 04/18/16 Range/Units 04:16 Sodium 139 (136-145) mEq/L Potassium 3.9 (3.5-4.5) mEq/L Chloride 108 (98-109) mEq/L Carbon Dioxide 21 (19-29) mEq/L BUN 26 (8-26) mg/dL Creatinine 1.70 H (0.72-1.25) mg/dL Glucose 117 H (70-99) mg/dL Calcium 8.2 L (8.6-10.8) mg/dL Albumin 2.5 L (3.5-5.0) g/dL - VTE Documentation of Mechanical Device: Intermittent pneumatic compression device Consult Discharge Plan - Plan Referrals: Joshua Sanchez, S[employer]OL CR[employer]ING GUARD [Primary Care Provider] -
[2016-04-18] MEDS ORDERED: Insulin LISPRO 300 UNITS/3 ML VIAL SQ SCH ×2 (12:00→18:00)
[2016-04-18] MEDS ORDERED: *HR* Propofol 200 MG/20 ML VIAL IVP ONE (14:03)
[2016-04-18] MEDS ORDERED: *HR* Midazolam HCl 2 MG/2 ML VIAL ONE (14:03)
[2016-04-18] MEDS ORDERED: Ondansetron 4 MG/2 ML VIAL ONE (14:03)
[2016-04-18] MEDS ORDERED: Lidocaine -MPF 2% 2 ML VIAL ONE (14:03)
[2016-04-18] MEDS ORDERED: *HR* FentaNYL (PF) 100 MCG/2 ML VIAL ONE (14:03)
--- NOTE | 2016-04-18 14:29 | Anesthesia Evaluation PreOp ---
Date of Encounter: 04/18/16 Time of Encounter: 14:27 - Past History Planned Operation: cyst, bilat stent exchange Cardiac History: HTN, Hyperlipidemia Pulmonary History: Denies Any Significant HX REFERRAL AGENT History: Denies Any Significant HX Other Medical History: Renal (ester), Diabetes Type II, GERD, Other (prostate ca) Anesthesia History: No Prior Anesthetic Complications, Past Anesthesia ( orthopedic, ureteral stent) Alcohol Use: none Drug use: none Medications and Allergies Insulin ASPART [Novolog Flexpen] 10 unit SQ TID 30 Days 01/19/16 [Rx] Insulin DETEMIR [Levemir] 30 unit SQ HS 30 Days 01/19/16 [Rx] Omeprazole [PriLOSEC] 40 mg PO DAILY PRN 02/18/16 [History] Amlodipine Besylate 10 mg PO DAILY 03/13/16 [History] Ciprofloxacin [Cipro] 500 mg PO BID 5 Days 03/17/16 [Rx] Fluconazole [Diflucan] 200 mg PO DAILY 14 Days 03/17/16 [Rx] Cyanocobalamin (Vitamin B-12) [Vitamin B12] 5,000 mcg PO DAILY 04/13/16 [History ] L. Acidophilus/Pectin, [place] [Acidophilus Probiotic Capsule] 1 cap PO DAILY 03/01 [History] Sertraline [Zoloft] 25 mg PO DAILY 04/13/16 [History] Allergies No Known Allergies Allergy (Verified 04/13/16 10:37) - Meds/Allergy Pre-op Review Medications Reviewed: Yes Allergies Reviewed: Yes Beta Blockers on Current Med List: No Anesthesia Results - Labs 04/18/16 04:16 04/18/16 04:16 - Imaging EKG: report reviewed (sr) Anesthesia Exam Vital Signs/O2 Sat/Glucose, Most Current Temp Pulse Resp BP Pulse Ox 04/18/16 11:03 98.0 F 86 16 134/84 95 Blood glucose: 142 (11:18) Height: 1.8 Weight: 91 NPO (# of Hours): >8 - HEENT Pupil (Motor): Pupils equal, EOMI Mallampati: I Teeth: Normal Oral Opening: Greater than 3 - REFERRAL AGENT LOC: Oriented REFERRAL AGENT Motor: Normal RUE, Normal LUE, Normal RLE, Normal LLE, Normal Face REFERRAL AGENT Sensory: Normal: RUE, LUE, RLE, LLE, Face - Cardiac Rhythm: Regular Murmur: None - Pulmonary Breath Sounds: bilateral Clear Respiratory Effort: Symmetrical Anesthesia Assess/Plan ASA Score: 3 Modified [place] Scale for Level of Consciousness: Cooperative, oriented, and tranquil Anesthetic Plan: General Monitoring Plan: Standard Monitors Recovery Plan: PACU
[2016-04-18] MEDS ORDERED: Ringers Solution, Lactated 1,000 ML IVC SCH ×2 (14:30→17:24)
--- NOTE | 2016-04-18 16:22 | Operative Note ---
Date of procedure: 04/18/16 Pre-op diagnosis: Bilateral ureteral obstruction Post-op diagnosis: same Procedure: Cystoscopy, bilateral ureteral stent exchange, right retrograde pyelogram. Implants: Right: 7 Taiwanese x 24cm JJ stent. Left: 7 greenlandic x 26cm JJ stent. Complications: none. Anesthesia: RAQUELA Surgeon: Dominick Ibarra Estimated blood loss (cc): 1 Specimen: none. Condition: stable Disposition: PACU Procedure in Detail: Indications: Mr. Rivera is a 65 year old man with locally advanced prostate cancer. He has been having recurrent UTI and has indwelling stents because of ureteral obstruction. He elected to undergo cystoscopy with bilateral ureteral stent exchange to insert fresh stents. He was aware of the risks of surgery which include but are not limited to bleeding, infection, injury structures, for procedures, and the risk of anesthesia. He is willing to proceed. Procedure: After informed consent was obtained the patient was brought back to the operating room and placed in supine position. A timeout was performed. Gen. anesthesia was administered and a laryngeal mask airway was placed. He was then placed in the lithotomy position. His genitalia and were prepped and draped in usual sterile fashion. The anterior urethra was gently dilated with the 17 Taiwanese obturator. The 17 Taiwanese scope was placed. 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 I was able to maneuver the scope into the bladder. A zip wire was placed alongside the right ureteral stent and brought into the kidney under fluoroscopic guidance. There was some difficulty getting the wire past the distal ureter but eventually was able to move into the kidney. The urethra was then gently dilated using the 21 Taiwanese obturator. The scope was placed. I was able to get the scope easily into the bladder. The right ureteral stent was grasped and brought to the meatus. The sensor wire was placed up the stent and brought into the kidney under fluoroscopic guidance. I inserted the open-ended catheter over the sensor wire into the right kidney. A retrograde pyelogram showed evidence hydronephrosis. The sensor wire was replaced. A 7 Taiwanese by 24 cm double-J stent was then placed under both direct visual guidance and fluoroscopic guidance overtop the sensor wire. The dangle string was removed. The zip wire was removed as well. This a wire was then placed alongside the left ureteral stent brought into the kidney under fluoroscopic guidance. The stent was removed and brought the meatus. The sensor wires placed through the stent and brought to the kidney under fluoroscopic catheter. The stent was removed. A 7 Taiwanese by 26 cm double- J stent was placed with a good curl seen within the kidney and the bladder. The dangle string was removed. Both wires removed. The bladder was then drained. Mr. Rivera was then awakened from general anesthesia and brought to recovery room in good condition. All sponge, needle, and instrument counts were correct.
[2016-04-18] MEDS ORDERED: Ondansetron 4 MG/2 ML VIAL IVP PRN (16:25)
[2016-04-18] MEDS ORDERED: *HR* Labetalol 100 MG/20 ML MDV IVP PRN (16:25)
[2016-04-18] MEDS ORDERED: *HR* HYDROmorphone (PF) 1 MG/ML SYRINGE IVP PRN (16:25)
--- NOTE | 2016-04-18 17:04 | Anesthesia Evaluation Post Op ---
Date of Encounter: 04/18/16 Time of Encounter: 16:50 - Vital Signs Vital Signs: vss - Lungs Lungs: Clear Ascult./Percussion - Airway Airway: Non-obstructed - Cardiovascular Regular Rate, Baseline Rhythm - Mental Status Mental Status: Alert & Oriented, Answers Appropriately - Pain Pain Scale used: Numeric (1 - 10) - Nausea Vomiting Nausea Vomiting: Present - Hydration Hydration: Tolerates oral liquids - Discharge PostOp Status: Transfer Patient to floor
[2016-04-18] MEDS ORDERED: D5% in Water 1,000 ML IV PRN (17:24)
[2016-04-18] MEDS ORDERED: *HR* Dextrose 50 % in Water (Syg) 50 ML SYRINGE IVP PRN (17:24)
[2016-04-18] MEDS ORDERED: *HR* Morphine 2 MG/ML SYRINGE IVP PRN (17:24)
[2016-04-18] MEDS ORDERED: Naloxone 0.4 MG/ML INJ IVP PRN (17:24)
[2016-04-18] MEDS ORDERED: *HR* Promethazine 25 MG/ML VIAL IVP PRN (17:24)
[2016-04-18] MEDS ORDERED: Dextrose Gel 15 GM PO PRN ×2 (17:24)
[2016-04-18] MEDS ORDERED: Insulin DETEMIR 100 UNIT/ML X5UNITS SQ SCH (21:00)
[2016-04-19] MEDS: Ampicillin 500 MG in 0.9 % Sodium Chloride Mini Bag 100 ML IVPB SCH ×2 (03:57→09:40)
[2016-04-19] MEDS: *HR* Heparin 5,000 UNIT/ML VIAL SQ SCH (05:56)
--- NOTE | 2016-04-19 08:03 | Internal Med Progress Note ---
Date of Encounter: 04/19/16 - Constitutional Vitals: Temp Pulse Resp BP Pulse Ox 97.9 F 82 16 128/75 96 04/19/16 06:56 04/19/16 06:56 04/19/16 06:56 04/19/16 06:56 04/19/16 06:56 General appearance: Present: A&O X 3, pleasant, answers questions appropriately Internal Medicine: Result - Labs CBC & Chem 7: 04/18/16 04:16 04/18/16 04:16 - Impressions Impressions Retrograde Pyelogram 04/18/16 15:30 IMPRESSION: Intraprocedural fluoroscopic spot images as above. See separate procedure report for more information. D/ / Osiris Rodriguez MD / Osiris Rodriguez MD Interpreting Provider: Osiris Rodriguez MD - VTE Documentation of Mechanical Device: Intermittent pneumatic compression device Consult Discharge Plan - Plan Referrals: Joshua Sanchez, CASE SUPERVISOR [Primary Care Provider] -
--- NOTE | 2016-04-19 08:44 | Urology Progress Note ---
Date of Encounter: 04/19/16 Time of Encounter: 08:43 - Assessment and Plan (1) Prostate cancer Current Visit: Yes Status: Acute Assessment and plan: He can follow up with medical oncology later this week. (2) UTI (urinary tract infection) Current Visit: Yes Status: Acute Assessment and plan: Consider augmentin for oral antibiotic. Okay to follow up with me in 2 weeks. Qualifiers: Urinary tract infection type: acute cystitis Hematuria presence: without hematuria Qualified Code(s): N30.00 - Acute cystitis without hematuria Progress Note Narrative: Doing well after cystoscopy and bilateral stent change. Objective Initial Vital Signs Temp Pulse Resp BP Pulse Ox 97.3 F L 90 18 132/79 97 04/13/16 10:37 04/13/16 10:37 04/13/16 10:37 04/13/16 10:37 04/13/16 10:37 - General physical appearance Present: well developed, well nourished, no distress - Respiratory Present: normal respiratory effort - Abdomen Present: soft - Labs 04/18/16 04:16 04/18/16 04:16 - VTE Documentation of Mechanical Device: Intermittent pneumatic compression device Consult Discharge Plan - Plan Referrals: Joshua Sanchez, COAT FELLER [Primary Care Provider] -
[2016-04-19] MEDS ORDERED: Lactobacillus 1 EACH CAP.SPRINK PO SCH (09:00)
[2016-04-19] MEDS ORDERED: Fluconazole 100 MG TABLET PO SCH (09:00)
[2016-04-19] MEDS ORDERED: Folic Acid 1 MG TABLET PO SCH (09:00)
[2016-04-19] MEDS ORDERED: amLODIPine 5 MG TABLET PO SCH (09:00)
[2016-04-19] MEDS: Insulin LISPRO 300 UNITS/3 ML VIAL SQ SCH ×4 (09:42→12:05)
[2016-04-19 10:47] VITALS: BP 143/79
--- NOTE | 2016-04-19 12:49 | Discharge Summary ---
Date of Encounter: 04/19/16 Time of Encounter: 09:20 - Discharge Medications Prescriptions: Amoxicillin [Amoxil] 500 mg PO Q8HR 7 Days Home Medications: Insulin ASPART [Novolog Flexpen] 10 unit SQ TID 30 Days 01/19/16 [Rx] Insulin DETEMIR [Levemir] 30 unit SQ HS 30 Days 01/19/16 [Rx] Omeprazole [PriLOSEC] 40 mg PO DAILY PRN 02/18/16 [History] Amlodipine Besylate 10 mg PO DAILY 03/13/16 [History] Cyanocobalamin (Vitamin B-12) [Vitamin B12] 5,000 mcg PO DAILY 04/13/16 [History ] L. Acidophilus/Pectin, [place] [Acidophilus Probiotic Capsule] 1 cap PO DAILY 03/01 [History] Sertraline [Zoloft] 25 mg PO DAILY 04/13/16 [History] Amoxicillin [Amoxil] 500 mg PO Q8HR 7 Days 04/19/16 [Rx] Allergies/Adverse Reactions: Allergies No Known Allergies Allergy (Verified 04/13/16 10:37) Date of admission: 04/13/16 13:05 Primary care physician: Joshua Sanchez CNP Consults: Urology Discharging clinician: Jas Blanton Anticipated date of discharge: 04/19/16 - Patient Status Disposition: Home, Self-Care Condition: Good Overall status at discharge: patient is progressing back to baseline - Discharge Instructions Follow Up With: Joshua Sanchez CNP [Primary Care Provider] - 05/03/16 5:30 pm Dominick Ibarra MD [Partnered Physician] - 05/03/16 3:00 pm Additional Instructions: Follow-up with infectious disease in the out-patient setting - PCP can refer to ID in [place]. - Diet and Activity Activity: resume usual activities as tolerated Diet: advance to your usual diet Hospital course: 65 year old male with medical history significant for prostate cancer, prior episode of UTI admitted with complicated UTI, and acute on chronic kidney disease (serum creatinine up to 2.23 from a baseline of 1.5). Prior urine culture done in March 2016 preported multi-resistant arline specia. He received Fluconazole which is reported a resistant based on sensitivity report of 04/18/2016. However urine culture performed during this hospitalization reports E fecacium sensitive to ampicillin and vancomycin. He was initially treated with IV Ceftriaxone. This was changed to IV Ampicillin. Urine culture did not report yeast this time around. He underwent cystoscopy with ureteric stent replacement by urology. Renal function improved and had returned to near baseline at discharge. He was discharged on Amoxicllin for 7 days to complete 14 days treatment. He will follow-up with Urology, oncology and infectious disease in the out-patient stting. Treatment for arline was not offered at discharge because new culture did not report yeast and the arline specie reported in prior culture was only sensitive to newer, intravenous agent. At discharge Not in distress, at bedside. Not pale anicteric, afebrile, acyanotic Chest clear Heart: RRR, HS1/2, no murmur. Abdomen: soft, non-tender, no masses. DRAPERY CUTTER: aao x 3, no gross focall neurological deficits. : no flank tenderness, no CVA tender, vague inconsistent suprapubic tenderess. Skin : no active skin lesion Extremities: Trace pedal edema. Final diagnosis Complicated UTI, E faecium Obstructive uropathy Admission for ureteric exchange Acute on CKD. Prostate cancer - Time Spent with Patient Total time spent providing and/or coordinating discharge services: Greater than 30 minutes Specific discharge activities: as tolerated. - Constitutional Vitals: Temp Pulse Resp BP Pulse Ox 98.5 F 88 16 143/79 95 04/19/16 10:46 04/19/16 10:46 04/19/16 10:46 04/19/16 10:46 04/19/16 10:46 General appearance: Present: A&O X 3, pleasant, answers questions appropriately - VTE Documentation of Mechanical Device: Intermittent pneumatic compression device
== END 2016-04-19 14:06 | disposition home or self-care (01) | DRG 683 ==
LOC: 3NENU 10:35 → EMEROO 10:35 → 3NENU 12:12 → SUATTDRO 13:05
PROVIDERS: ADMIT Internal Medicine; ATTEND Internal Medicine

== ENCOUNTER 2017-01-12 17:20 | Inpatient (IN) ==
[2017-01-12] MEDS ORDERED: *HR* Morphine 2 MG/ML SYRINGE IVP ONE (17:51)
--- NOTE | 2017-01-12 17:52 | Emergency Department Note ---
Disposition Clinical Impression: History of prostate cancer Acute renal failure Qualifiers: Acute renal failure type: unspecified Qualified Code(s): N17.9 - Acute kidney failure, unspecified Disposition: Admitted As Inpatient Condition: Fair Time of Disposition: 18:13 Recheck wound or abnormal lab - General Chief Complaint: ED Recheck/Abnormal Lab/Rx Stated Complaint: Abnormal labs from Dr. Ibarra Time Seen by Provider: 01/12/17 17:28 Source: patient Limitations: no limitations Nursing Notes Reviewed: Yes Vital Signs Reviewed: Yes - History of Present Illness HPI Narrative: 66-year-old male history of prostate cancer presents with abnormal lab. I received a call from his urologist Dr. Ibarra who performed outpatient labs which revealed significant elevation of his creatinine 6.15. Patient has received multiple stents by the urologist and believe it may have failed. Recommended the patient be admitted for acute renal failure and possible nephrostomy tube placement. At this time patient denies any complaints other than some suprapubic tenderness which has been constant throughout his cancer. He follows with oncologist Dr. Ceron who has been treating the cancer with radiation. He has completed 39 radiation treatment. Patient continues to make some urine and describes some dysuria recently. He denies any confusion, fever , recent illness, chest pain or shortness of breath. Denies any abdominal pain. Denies any toxic ingestion. His three dimensional map modeler is Dr. Spivey. Patient has never received hemodialysis. Pt Subjective Complaint: abnormal lab(s) - Related Data Home Medications Medication Instructions Recorded Confirmed Sertraline [Zoloft] 25 mg PO DAILY 04/13/16 01/12/17 Folic Acid 1 mg PO DAILY 11/17/16 01/12/17 Insulin ASPART [Novolog Flexpen] 15 unit SQ TID 11/17/16 01/12/17 Ondansetron HCl [Zofran] 4 mg PO Q8H PRN 11/17/16 01/12/17 Diltiazem CD (24hr) [Cardizem CD] 240 mg PO DAILY 12/15/16 01/12/17 Docusate [Colace] 100 mg PO DAILY PRN 01/12/17 01/12/17 Omeprazole [PriLOSEC] 40 mg PO DAILY 01/12/17 01/12/17 Previous Rx's Medication Instructions Recorded Insulin DETEMIR [Levemir] 30 unit SQ HS 30 Days [id number] 01/19/16 Allergies Allergy/AdvReac Type Severity Reaction Status Date / Time No Known Allergies Allergy Verified 01/12/17 18:26 All systems ED: reviewed and negative except as stated. Review of Systems: As Per HPI Constitutional: Denies: fever, chills Cardiovascular: Denies: chest pain Respiratory: Denies: cough, dyspnea Gastrointestinal: Denies: abdominal pain, nausea, vomiting Genitourinary: Reports: dysuria. Denies: urgency Musculoskeletal: Denies: back pain, neck pain Integumentary: Denies: rash, abrasion Neurological: Reports: weakness. Denies: headache Psychiatric: Denies: anxiety, depression Endocrine: Reports: fatigue Past Medical History - Past Medical History Attestation: Yes The following information was validated with the patient. Source: patient Medical history: Reports: cancer, diabetes, hyperlipidemia, hypertension Surgical history: Reports: orthopedic, other, ureteral stent Psychiatric history: Reports: no psych history - Social History Smoking Status: Never smoker Smokeless Tobacco Status: No Alcohol use: Reports: none Drug use: Reports: none Physical Exam - General Limitations: no limitations General appearance: alert, in no apparent distress, other (Pale) - Head Head exam: atraumatic, normocephalic, normal inspection - Eye Eye exam: Present: normal appearance, PERRL, EOMI - ENT ENT exam: normal exam, normal oropharynx, mucous membranes moist - Neck Neck exam: Present: normal inspection, full ROM, trachea midline - Chest Chest inspection: Present: normal inspection, symmetric chest wall rise. Absent : tenderness - Respiratory Respiratory exam: Present: normal lung sounds bilaterally. Absent: respiratory distress, wheezes - Cardiovascular Cardiovascular exam: Present: regular rate, normal rhythm, normal heart sounds. Absent: systolic murmur, diastolic murmur - Abdominal Exam Abdominal exam: Present: soft, tenderness, normal bowel sounds. Absent: Non- Tender, distention, guarding, rebound, rigidity, Gregg's sign, Rovsing's sign, tenderness at McBurney's Point, mass, hernia Abdominal tenderness: Present: suprapubic - Extremities Exam Extremities exam: Present: normal inspection, full ROM, normal capillary refill. Absent: tenderness, pedal edema, calf tenderness - Back Exam Back exam: Present: normal inspection, full ROM. Absent: tenderness - Neurological Exam Neurological exam: Present: alert, oriented X3, normal gait - Psychiatric Psychiatric exam: Present: normal affect, normal mood. Absent: depressed, anxious - Skin Skin exam: Present: warm, dry, intact, normal color, pallor. Absent: rash, diaphoresis Course Course Narrative: 66-year-old male presents with abnormal labs. Creatinine 6.15. 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 However he also has had multiple stents that may have fail. His potassium is for. Will obtain EKG entry any abnormalities. On physical exam patient is pale otherwise in no acute distress. He is alert and oriented person place and time. No confusion. There is asterixis on examination. Findings concerning for uremia. His BUN was 65. Patient will be admitted to the hospitalist. Will require nephrology consultation. At this time does not require emergent dialysis. Impression is acute renal failure and history of prostate cancer. - Reevaluation(s) Reevaluation #1: EKG performed does not reveal peaked T waves, QRS is 108. Will not require calcium treatment at this time. Review of his urinalysis shows some contamination with large leuk esterase. Will defer treatment to hospitalist and consider awaiting culture and sensitivities prior to treatment. Patient is stable for admission to the floor. - Consultations Consultation #1: Spoke with on-call hospitalist alverto Dudley to admit for acute renal failure. No further orders at this time Time: 18:11 Vital Signs Temperature 98.0 F 01/12/17 17:21 Pulse Rate 76 01/12/17 17:21 Respiratory Rate 18 01/12/17 17:21 Blood Pressure 169/105 01/12/17 17:21 O2 Sat by Pulse Oximetry 98 01/12/17 17:21 Temperature 97.9 F 01/12/17 19:26 Pulse Rate 69 01/12/17 19:26 Respiratory Rate 17 01/12/17 19:26 Blood Pressure 179/82 01/12/17 19:26 O2 Sat by Pulse Oximetry 95 01/12/17 19:26 Oxygen Delivery Oxygen Delivery Room Air Recheck wound or abnormal lab - MDM Narrative Medical decision making narrative: Patient was discussed with my attending physician who agrees with ED management and final disposition. They independently evaluated the patient. Please refer to their attestation to this encounter for additional information. This note was generated by [employer] voice recognition software and as a result grammatical or spelling errors may occur using this program. - Medical Records Medical records reviewed: Yes I reviewed the patient's medical records. - Lab Data Lab results reviewed: Yes I reviewed the patient's lab results. Lab Results 01/12/17 01/12/17 Range/Units 18:00 18:30 Sample Site L Radial ABG pH 7.41 (7.32-7.45) pH Units ABG pCO2 32 L (35-45) mmHg ABG pO2 82 L (85-104) mmHg ABG HCO3 20 L (21-27) mEq/L ABG Total CO2 21 (20-26) mEq/L ABG O2 Saturation 96 (95-98) % ABG Base Excess -4 L (-2 to 3) mEq/L Sincere Test Positive Inspired O2 21.0 (1-15=lpm [id number]=%) Urine Color Yellow (Yellow) Urine Clarity Turbid A (Clear) Urine pH 6.5 (5.0-8.0) pH Units Ur Specific [place] 1.011 (1.010-1.025) Urine Protein 100 H (Neg-Trace) mg/dL Urine Glucose (UA) Normal (Normal) mg/dL Urine Ketones Negative (Negative) mg/dL Urine Blood Large H (Negative) Urine Nitrite Negative (Negative) Urine Bilirubin Negative (Negative) Urine Urobilinogen Normal (Normal) mg/dL Ur Leukocyte Esterase Large H (Negative) Urine Microscopic RBC 30-50 H (0-3) per hpf Urine Microscopic WBC TNTC H (0-3) per hpf Ur Squamous Epith Cells Moderate H (None-Few) per lpf Urine Bacteria Moderate H (None-Few) per hpf Hyaline Casts None Seen (None-Few) per lpf Urine Yeast Moderate H (None Seen) per hpf Ur Culture Indicated? YES A (NO) - EKG Data EKG attestation: Yes I reviewed and interpreted this EKG. EKG results narrative: EKG performed 1813 normal sinus rhythm 67 bpm incomplete bundle branch block, QRS 108, no significant peak T wave, no ST elevations or depressions. Intervals are within normal limits. No old EKG available for comparison. No acute ischemic changes. No concern for hyperkalemia at this time.
--- NOTE | 2017-01-12 18:07 | Emergency Department Note ---
START Narrative - START START: I examined this patient and my medical decision-making was reviewed with the Resident Physician. I agree with the documented findings, disposition and treatment plan as described except to the extent set forth below. 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 Dr. Balderas sent pt in to be admitted for further W/U. Pt stable in ED, K+ 4 earlier today with BUN in 60s and Creat of 6. No mental status changes, no indication for emergent dialysis. Arranging admisison for further evaluation and treatment.
[2017-01-12 18:14] LABS: Bilirubin,Urine Negative (Negative); Blood,Urine Large (Negative); Clarity,Urine Turbid (Clear); Color,Urine Yellow (Yellow); Glucose,Urine (UA) Normal (Normal); Ketones,Urine Negative (Negative); Leukocyte Esterase,Urine Large (Negative); Nitrite,Urine Negative (Negative); PH,Urine 6.5 pH Units (5.0-8.0); Protein,Urine 100 mg/dL (Neg-Trace); Specific Gravity,Urine 1.011 (1.010-1.025); Urobilinogen,Urine Normal (Normal)
[2017-01-12 18:16] LABS: Hyaline Casts,Urine None Seen per lpf (None-Few); Squamous Epithelial Cell,Urine Moderate per lpf (None-Few); WBC,Urine TNTC per hpf (0-3)
[2017-01-12 18:31] LABS: RBC,Urine 30-50 per hpf (0-3); Yeast,Urine Moderate per hpf (None Seen)
[2017-01-12 18:32] LABS: Bacteria,Urine Moderate per hpf (None-Few)
[2017-01-12 18:36] LABS: ABG Base Excess -4 mEq/L (-2 to 3); ABG HCO3 20 mEq/L (21-27); ABG Oxygen Saturation 96 % (95-98); ABG PCO2 32 mmHg (35-45); ABG PH 7.41 pH Units (7.32-7.45); ABG PO2 82 mmHg (85-104); ABG TCO2 21 mEq/L (20-26)
[2017-01-12] MEDS ORDERED: Naloxone 0.4 MG/ML INJ IVP PRN (20:03)
[2017-01-12] MEDS ORDERED: Acetaminophen 325 MG TABLET PO PRN (20:03)
--- NOTE | 2017-01-12 20:12 | Internal Med History&Physical ---
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 - Considering nephrolithiasis vs prostate compression vs urethral structure s/p radiation CT abd/pelvis ordered Gentle IVF for possible pre-renal cause vs increased flow for possible stone passage Nephrology consulted - Plan for possible nephrostomy tube placement tomorrow K stable at 4.0, No EKG changes Continue cardiac monitoring Renal diet tonight, NPO after midnight Qualifiers: Acute renal failure type: unspecified Qualified Code(s): N17.9 - Acute kidney failure, unspecified (2) UTI (urinary tract infection) Current visit: No Status: Acute Laboratory Tests 01/12/17 18:00 Urine Color Yellow Urine Clarity Turbid A Urine pH 6.5 Ur Specific [place] 1.011 Urine Protein 100 H Urine Glucose (UA) Normal Urine Ketones Negative Urine Blood Large H Urine Nitrite Negative Urine Bilirubin Negative Urine Urobilinogen Normal Ur Leukocyte Esterase Large H Urine Microscopic RBC 30-50 H Urine Microscopic WBC TNTC H Ur Squamous Epith Cells Moderate H Urine Bacteria Moderate H Hyaline Casts None Seen Urine Yeast Moderate H Previous urine culture positive for enterococcus faecalis back in April as well as Staph Epi most recently Urine culture sent Likely Complicated UTI at this time Starting on Rocephin and Renally dosed Ciprofloxacin Qualifiers: Urinary tract infection type: acute cystitis Hematuria presence: without hematuria Qualified Code(s): N30.00 - Acute cystitis without hematuria (3) Prostate CA Current visit: No Status: Chronic Following Dr. Ibarra his urologist S/p 39 radiation treatments Received Lupron Injection every three months Multiple urethral stent placements Nephro on board See above (4) Hypertension Current visit: No Status: Chronic Takes Diltiazem at home. Restarted dose tonight. BP lowering down to 179/82 - Likely d/t post obstructive nephropathy Hold adding PO meds until nephrostomy tubes placed and will re-evaluate PRN Hyrdralazine ordered Qualifiers: Hypertension type: essential hypertension Qualified Code(s): I10 - Essential (primary) hypertension (5) Diabetes mellitus Current visit: No Status: Chronic Last known A1c was 6.2 Takes Levemir 30 HS and Novalog 15 TID Renal diet tongiht but NPO after. Cover with low dose sliding scale protocol Qualifiers: Diabetes mellitus type: type 2 Diabetes mellitus complication status: with hyperglycemia Diabetes mellitus [facility] insulin use: with [facility] use Qualified Code(s): E11.65 - Type 2 diabetes mellitus with hyperglycemia; Z79.4 - intermediate frame tender (current) use of insulin (6) Anemia Current visit: No Status: Acute Hgb 10.4 Appears to be above baseline on EMR review Receives Aranesp shots Qualifiers: Anemia type: other cause Other causes of anemia: other cause, not classified Qualified Code(s): D64.89 - Other specified anemias Internal Medicine - H&P: HPI Chief complaint: urethral pain and abnormal labs - elevated Cr Admitted From: Home Plans for Post Hospital Care: Home History of present illness: Mr. Rivera is a very pleasant 66 year old male with a past medical history of prostate cancer, hypertension, T2DM, GERD and depression who presents to the [facility] Emergency Department after receiving a call from his urologist regarding abnormal blood work. Patient reports that he had some routine bloodwork taken this morning out in [place] and received a call from Dr. Ibarra, his urologist, stating that his kidney function is very poor with Cr 6.15 and would need further evaluation at the hospital. At the time, he was scheduled for upper and lower endoscopies and took his dulcolax without starting his full prep. He also is complaining of urethral pain that is intermittent in nature and worsens with urination. Patient has noticed gross hematuria this morning. He describes the pain as "someone puring hot water down through my urethra". Mr. Rivera goes on to report being diagnosed with prostate cancer in December 2015 and has underwent TURP, 39 radiation treatments and is currently taking Lupron every three months. He has stents placed and follows a division operations specialist, Dr. Spivey. On arrival to the ED, vital signs shows BP 169/105, Hgb 10.4, BUN 62, Cr 6.15 and K 4.0. Urine culture sent. Nephrology consulted. On evaluation, patient denies any tobacco or EtOH abuse. No family history of prostate CA. We will admit Mr. Rivera to 2A for further workup and management. Past Med Surg Social Fam HX - Past Medical History Medical history: cancer, diabetes, hyperlipidemia, hypertension Psychiatric history: no psych history - Past Surgical History Surgical History: orthopedic, other, ureteral stent - Social History Smoking Status: Never smoker Smokeless Tobacco Status: No Alcohol use: none Drug use: none - Family History Father Living Status: Hx Family Cardiac Disorders: No Hx Family Respiratory Disorders: No Hx Family Cancer: Yes (Prostate) Hx Family GI Disorders: No Hx Family Endocrine Disorder: Yes (Diabetes) Hx Family Neuromuscular Disorders: No Hx Family Neurologic Disorders: No Hx Family HEENT Disorders: No Hx Family Autoimmune Disorders: No Brother Living Status: Still Living Hx Family Cancer: Yes (prostate cancer) Internal Medicine - H&P: Meds Insulin DETEMIR [Levemir] 30 unit SQ HS 30 Days [id number] 01/19/16 [Rx] Sertraline [Zoloft] 25 mg PO DAILY 04/13/16 [History] Folic Acid 1 mg PO DAILY 11/17/16 [History] Insulin ASPART [Novolog Flexpen] 15 unit SQ TID 11/17/16 [History] Ondansetron HCl [Zofran] 4 mg PO Q8H PRN 11/17/16 [History] Diltiazem CD (24hr) [Cardizem CD] 240 mg PO DAILY 12/15/16 [History] Docusate [Colace] 100 mg PO DAILY PRN 01/12/17 [History] Omeprazole [PriLOSEC] 40 mg PO DAILY 01/12/17 [History] 3 Allergy/AdvReac Type Severity Reaction Status Date / Time No Known Allergies Allergy Verified 01/12/17 18:26 All Systems PM: A 10-system review of systems was performed and is negative for pertinent findings except as documented above in the HPI. - Constitutional Constitutional: fatigue, no fever(s) - EENT Eyes: no change in vision - Cardiovascular Cardiovascular ROS IM: no chest pain, no diaphoresis, no dyspnea, no lightheadedness, no palpitations - Respiratory Respiratory: no cough, no hemoptysis - Gastrointestinal Gastrointestinal: constipation, no abdominal pain, no diarrhea, no hematochezia , no melena, no nausea - Genitourinary Genitourinary ROS male: as per HPI, difficulty urinating, dysuria, hematuria - Musculoskeletal Musculoskeletal ROS IM: no back pain - Integumentary Integumentary IM: no erythema, no jaundice - Neurological Neurological ROS: no abnormal speech, no confusion, no headache(s) - Psychiatric Psychiatric: depression - Endocrine Endocrine IM: no polydipsia, no polyphagia, no polyuria - Constitutional Vitals: Temp Pulse Resp BP Pulse Ox 97.9 F 69 17 179/82 95 01/12/17 19:26 01/12/17 19:26 01/12/17 19:26 01/12/17 19:26 01/12/17 19:26 General appearance: Present: cooperative, A&O X 3, no acute distress - Head Head exam: Present: atraumatic, normocephalic - Eye Eye exam: Present: EOMI, conjuntiva pink, sclera anicteric - ENT ENT exam: Present: mucous membranes moist - Respiratory Respiratory exam: Present: CTAB. Absent: rhonchi, stridor, wheezes - Cardiovascular Cardiovascular exam: Present: RRR, +S1, +S2 - GI/Abdominal GI/Abdominal exam: Present: normal bowel sounds, soft. Absent: tenderness - Rectal Rectal exam: Present: deferred - Extremities Exam Extremities exam: Present: warm. Absent: calf tenderness, pedal edema, tenderness - Neurological Exam Neurological exam: Present: alert, oriented X3, no focal deficits - Psychiatric Psychiatric exam: Present: normal affect, normal mood - Skin Skin exam: Present: intact, normal color, warm. Absent: cyanosis <Paolo Salinas - Last Filed: 01/12/17 23:30> Date of Encounter: 01/12/17 Time of Encounter: 22:45 - Constitutional Constitutional: fatigue, no chills, no fever(s), no night sweats - EENT Nose, mouth and throat: no nasal congestion, no sinus pressure, no sore throat - Cardiovascular Cardiovascular ROS IM: no chest pain, no dyspnea - Respiratory Respiratory: no cough, no hemoptysis - Gastrointestinal Gastrointestinal: constipation, heartburn, nausea, no hematemesis, no hematochezia, no melena, no vomiting - Genitourinary Genitourinary ROS male: difficulty urinating, dysuria, flank pain, hematuria - Integumentary Integumentary IM: no rash - Neurological Neurological ROS: no dizziness, no focal weakness, no frequent falls, no headache(s) - Allergic/Immunologic Allergic/Immunologic: no wheezing, no GI upset with certain foods - Constitutional Vitals: Temp Pulse Resp BP Pulse Ox 97.9 F 69 17 179/82 95 01/12/17 19:26 01/12/17 19:26 01/12/17 19:26 01/12/17 19:26 01/12/17 19:26 General appearance: Present: cooperative, A&O X 3, pleasant, no acute distress Exam: looks dry - Head Head exam: Present: atraumatic, normal inspection - Eye Eye exam: Present: EOMI, PERRL. Absent: scleral icterus - ENT ENT exam: Present: mucous membranes dry, normal exam - Neck Neck exam general surgery: Present: supple. Absent: tenderness - Respiratory Respiratory exam: Present: CTAB. Absent: rales, rhonchi, wheezes - Cardiovascular Cardiovascular exam: Present: RRR, +S1, +S2 - GI/Abdominal GI/Abdominal exam: Present: normal bowel sounds, soft. Absent: hepatomegaly, splenomegaly, tenderness - Extremities Exam Extremities exam: Present: warm. Absent: calf tenderness, pedal edema, tenderness - Back Exam Back exam: Absent: CVA tenderness (L), CVA tenderness (R) - Neurological Exam Neurological exam: Present: alert, oriented X3, no focal deficits - Psychiatric Psychiatric exam: Present: normal affect, normal mood - Skin Skin exam: Present: warm. Absent: rash Internal Med - H&P Results - Diagnostic Studies CT scan - abdomen Status: image reviewed by me (bilateral hydronephrosis with right renal pelvic dilation (my interpretation); awaiting radiology report) - Attending Attestation I discussed the patient ATQASUK, PMH, ROS, lab data, and exam findings with Dr. Silverio. I then saw and examined patient independently as well. I met with and spoke with patient and his extensively. I suspect he has post-obstructive uropathy from either kidney stones, urethral obstruction/compression, and/or scarring. Patient very reluctant to have nephrostomy tubes placed, and I encouraged him to speak with urology in the morning. I explained that it may be necessary to place them to alleviate possible obstruction in order to avoid dialysis; however, we are still in the work-up phase. U/A suggest UTI, and he appears dry. We will place him on IVF and IV antibiotics while following urine cultures. Patient and voiced understanding. Other than my comments above and noted exam findings, I agree with Dr. Silverio's assessment and plan. Of note, no anti-coagulation will be given for DVT prophylaxis due to hematuria. Will place him on EPCD's.
[2017-01-12] MEDS ORDERED: *HR* Dextrose 50 % in Water (Syg) 50 ML SYRINGE IVP PRN (21:55)
[2017-01-12] MEDS ORDERED: D5% in Water 1,000 ML IVC PRN (21:55)
[2017-01-12] MEDS ORDERED: Dextrose Gel 15 GM PO PRN ×2 (21:55)
[2017-01-12] MEDS ORDERED: *HR* Promethazine 25 MG/ML VIAL IVP PRN (23:07)
[2017-01-12] MEDS: Diltiazem CD (24hr) 240 MG CAPSULE PO SCH (23:18)
[2017-01-12] MEDS: Ondansetron ODT 4 MG TAB.RAPDIS PO PRN (23:20)
[2017-01-12] MEDS: *HR* Morphine 2 MG/ML SYRINGE IVP PRN (23:21)
[2017-01-12] MEDS: 0.9 % Sodium Chloride 1,000 ML IVC SCH (23:26)
[2017-01-12] MEDS ORDERED: cefTRIAXone 1,000 MG in Water for inj. (sterile) 10 ML IVP SCH (23:45)
[2017-01-13] MEDS: cefTRIAXone 1,000 MG in Water for inj. (sterile) 10 ML IVP SCH ×2 (00:29→08:29)
[2017-01-13 03:24] LABS: Basophils % 0.6 %; Eosinophils # 0.2 K/mcL (0.0-0.6); Eosinophils % 3.3 %; Hematocrit 29.8 % (37.5-50.1); Hemoglobin 9.5 g/dL (12.9-16.9); Immature Granulocytes % 0.6 % (0-4); Immature Platelets 0.4 % (1.1-6.1); Lymphocytes # 0.9 K/mcL (0.6-4.6); Lymphocytes % 13.2 %; Mean Corpuscular HGB Conc 31.9 g/dL (31.6-35.5); Mean Corpuscular Hemoglobin 29.4 pg (28.0-33.3); Mean Corpuscular Volume 92.3 fL (83.0-100.0); Mean Platelet Volume 8.8 fL (9.4-12.4); Monocytes # 0.5 K/mcL (0.0-1.3); Monocytes % 7.1 %; Neutrophils # 5.2 K/mcL (1.6-8.9); Platelet Count 468 K/mcL (140-400); Red Blood Count 3.23 M/mcL (4.19-5.50); Red Cell Distribution Width 13.5 % (11.5-14.5); Segmented Neutrophils % 75.2 %
[2017-01-13 03:33] LABS: Calcium 8.7 mg/dL (8.6-10.8); Potassium 3.9 mEq/L (3.5-4.5)
--- NOTE | 2017-01-13 07:45 | Urology - Consult Note ---
Date of Encounter: 01/13/17 Time of Encounter: 07:43 - Assessment and Plan (1) Hydronephrosis Current Visit: Yes Status: Acute Assessment and plan: 66-year-old man with bilateral ureteral obstruction secondary to prostate cancer. A hydronephrosis on the right side seems worse. He has worsening renal function. I recommend proceeding with placement of a right nephrostomy tube. I think the left-sided stent is still draining. If his renal function doesn't improve after the right nephrostomy tube placement, we can consider left-sided nephrostomy tube placement at a later date. I discussed the procedure in detail. I will consult radiology to place this tube today. I have ordered an INR on him. Qualifiers: Qualified Code(s): N13.39 - Other hydronephrosis (2) APOORVA (acute kidney injury) Current Visit: No Status: Acute Assessment and plan: He has worsening renal function. Appreciate nephrology consultation. We will see how his renal function does after drainage of his right kidney. (3) UTI (urinary tract infection) Current Visit: No Status: Acute Assessment and plan: His urine shows some pyuria. He was given levofloxacin. Await urine cultures. Continue IV antibiotics for now. Qualifiers: Urinary tract infection type: acute cystitis Hematuria presence: without hematuria Qualified Code(s): N30.00 - Acute cystitis without hematuria (4) Prostate CA Current Visit: No Status: Chronic Assessment and plan: He is on androgen deprivation therapy and is status post radiation therapy. His last PSA was 0.4 on December 08, 2016. (5) Hematuria Current Visit: Yes Status: Acute Assessment and plan: He has had intermittent hematuria. This is likely due to the radiation and his urinary tract infection. His urine was clear this morning in the toilet. He doesn't require intervention for this at this time. I will closely monitor. Qualifiers: Qualified Code(s): R31.0 - Gross hematuria Urology [id number]:[email or web address] Consult date: 01/13/17 Reason for consult Urology: Hydronephrosis Requesting physician: Paolo Salinas History of present illness: 66-year-old gentleman with locally advanced prostate cancer was admitted for worsening renal failure. He has bilateral ureteral obstruction and has bilateral indwelling stents. He is status post TURP. He is also status post radiation therapy. His creatinine went from 2.37-6.15. I had called him yesterday and he came to the emergency department. A CT scan was obtained which showed worsening right hydronephrosis. The stents were in good position. The left side showed stable mild hydronephrosis. He has had some intermittent hematuria. He says he feels tired. Past Med Surg Social Fam HX - Past Medical History Medical history: cancer, diabetes, hyperlipidemia, hypertension Psychiatric history: no psych history - Past Surgical History Surgical History: orthopedic, other, ureteral stent - Social History Smoking Status: Never smoker Smokeless Tobacco Status: No Alcohol use: none Drug use: none - Family History Father History Unknown: Yes Living Status: Hx Family Cardiac Disorders: No Hx Family Respiratory Disorders: No Hx Family Cancer: Yes (Prostate) Hx Family GI Disorders: No Hx Family Endocrine Disorder: Yes (Diabetes) Hx Family Neuromuscular Disorders: No Hx Family Neurologic Disorders: No Hx Family HEENT Disorders: No Hx Family Autoimmune Disorders: No Brother History Unknown: Yes Living Status: Still Living Hx Family Cancer: Yes (prostate cancer) Medications and Allergies Insulin DETEMIR [Levemir] 30 unit SQ HS 30 Days [id number] 01/19/16 [Rx] Sertraline [Zoloft] 25 mg PO DAILY 04/13/16 [History] Folic Acid 1 mg PO DAILY 11/17/16 [History] Insulin ASPART [Novolog Flexpen] 15 unit SQ TID 11/17/16 [History] Ondansetron HCl [Zofran] 4 mg PO Q8H PRN 11/17/16 [History] Diltiazem CD (24hr) [Cardizem CD] 240 mg PO DAILY 12/15/16 [History] Docusate [Colace] 100 mg PO DAILY PRN 01/12/17 [History] Omeprazole [PriLOSEC] 40 mg PO DAILY 01/12/17 [History] 3 Allergy/AdvReac Type Severity Reaction Status Date / Time No Known Allergies Allergy Verified 01/12/17 18:26 Review of Systems - Constitutional fatigue, no chills, no fever(s) - EENT Nose, mouth and throat: no dizziness - Cardiovascular no chest pain - Respiratory no dyspnea - Gastrointestinal no nausea, no vomiting - Genitourinary hematuria, no flank pain - Musculoskeletal no back pain - Integumentary no erythema, no rash - Neurological no weakness - Psychiatric no suicidal ideation - Hematologic/Lymphatic no easy bleeding - Allergic/Immunologic no wheezing Exam Initial Vital Signs Temp Pulse Resp BP Pulse Ox 98.0 F 76 18 169/105 98 01/12/17 17:21 01/12/17 17:21 01/12/17 17:21 01/12/17 17:21 01/12/17 17:21 - General physical appearance Present: well developed, well nourished, no distress - Eyes Absent: icteric - ENT Present: normal nares - Neck Present: trachea midline - Respiratory Present: normal respiratory effort - Cardiovascular Cardiovascular exam IM: RRR - Abdomen Abdomen: Present: soft Urology Results - Labs 01/13/17 03:07 01/13/17 03:07 Abnormal lab results RBC 3.23 M/mcL (4.19-5.50) L 01/13/17 03:07 Hgb 9.5 g/dL (12.9-16.9) L 01/13/17 03:07 Hct 29.8 % (37.5-50.1) L 01/13/17 03:07 Plt Count 468 K/mcL (140-400) H 01/13/17 03:07 MPV 8.8 fL (9.4-12.4) L 01/13/17 03:07 Immature Plt Fraction 0.4 % (1.1-6.1) L 01/13/17 03:07 ABG pCO2 32 mmHg (35-45) L 01/12/17 18:30 ABG pO2 82 mmHg (85-104) L 01/12/17 18:30 ABG HCO3 20 mEq/L (21-27) L 01/12/17 18:30 ABG Base Excess -4 mEq/L (-2 to 3) L 01/12/17 18:30 BUN 54 mg/dL (8-26) H 01/13/17 03:07 Creatinine 5.36 mg/dL (0.72-1.25) H 01/13/17 03:07 Est GFR ( Amer) 13 (> 60) L 01/13/17 03:07 Est GFR (Non-Af Amer) 11 (> 60) L 01/13/17 03:07 Glucose 232 mg/dL (70-99) H 01/13/17 03:07 Calculated Osmolality 308 (280-300) H 01/13/17 03:07 Urine Clarity Turbid (Clear) A 01/12/17 18:00 Urine Protein 100 mg/dL (Neg-Trace) H 01/12/17 18:00 Urine Blood Large (Negative) H 01/12/17 18:00 Ur Leukocyte Esterase Large (Negative) H 01/12/17 18:00 Urine Microscopic RBC 30-50 per hpf (0-3) H 01/12/17 18:00 Urine Microscopic WBC TNTC per hpf (0-3) H 01/12/17 18:00 Ur Squamous Epith Cells Moderate per lpf (None-Few) H 01/12/17 18:00 Urine Bacteria Moderate per hpf (None-Few) H 01/12/17 18:00 Urine Yeast Moderate per hpf (None Seen) H 01/12/17 18:00 Ur Culture Indicated? YES (NO) A 01/12/17 18:00 Diabetes panel 01/13/17 Range/Units 03:07 Sodium 138 (136-145) mEq/L Potassium 3.9 (3.5-4.5) mEq/L Chloride 107 (98-109) mEq/L Carbon Dioxide 20 (19-29) mEq/L BUN 54 H (8-26) mg/dL Creatinine 5.36 H (0.72-1.25) mg/dL Glucose 232 H (70-99) mg/dL Calcium 8.7 (8.6-10.8) mg/dL Calcium panel 01/13/17 Range/Units 03:07 Calcium 8.7 (8.6-10.8) mg/dL Pituitary panel 01/13/17 Range/Units 03:07 Sodium 138 (136-145) mEq/L Potassium 3.9 (3.5-4.5) mEq/L Chloride 107 (98-109) mEq/L Carbon Dioxide 20 (19-29) mEq/L BUN 54 H (8-26) mg/dL Creatinine 5.36 H (0.72-1.25) mg/dL Glucose 232 H (70-99) mg/dL Calcium 8.7 (8.6-10.8) mg/dL Adrenal panel 01/13/17 Range/Units 03:07 Sodium 138 (136-145) mEq/L Potassium 3.9 (3.5-4.5) mEq/L Chloride 107 (98-109) mEq/L Carbon Dioxide 20 (19-29) mEq/L BUN 54 H (8-26) mg/dL Creatinine 5.36 H (0.72-1.25) mg/dL Glucose 232 H (70-99) mg/dL Calcium 8.7 (8.6-10.8) mg/dL All other labs normal. - Imaging CT scan - abdomen: report reviewed, image reviewed CT scan - pelvis: report reviewed, image reviewed Consult Discharge Plan - Plan Referrals: Saleem Ramirez DO [Primary Care Provider] -
[2017-01-13] MEDS ORDERED: Insulin LISPRO 300 UNITS/3 ML VIAL SQ SCH (08:00)
[2017-01-13 08:14] LABS: INR 1.2; Prothrombin Time 12.6 Seconds (9.4-12.1)
[2017-01-13] MEDS: Folic Acid 1 MG TABLET PO SCH (08:28)
[2017-01-13] MEDS: Diltiazem CD (24hr) 240 MG CAPSULE PO SCH (08:28)
--- NOTE | 2017-01-13 09:24 | Nephrology Consult Note ---
Date of Encounter: 01/13/17 Time of Encounter: 09:00 Assessment and Plan (1) APOORVA (acute kidney injury) Current Visit: No Status: Acute APOORVA superimposed on CKD most likely secondary to bilateral ureteral obstruction from prostate cancer. Baseline creat 1.5-1.8. Creat somewhat improved 5.36. Recommend continuing IV fluids. Right nephrostomy tube placement scheduled for today. No need for immediate HD, will continue to monitor renal fct. Avoid nephrotoxins. Accurate I/O. Continue antibiotics, urine culture pending. History of Present Illness - Reason for Consult Acute Kidney Injury - History of Present Illness Mr. rivera is a 66 year old male with history of prostate cancer. He presented to ER when told labs drawn yesterday creatinine elevated 6.15. K+ 4.0. Mr. Rivera has known CKD with baseline creat 1.5-1.8. Other PMH- cancer, diabetes, hyperlipidemia, hypertension, orthopedic, multiple ureteral stents. Mr. Rivera states has been feeling good, denies difficulty emptying bladder, denies dysuria. CT Abd/Pelvis without contrast-stable left moderate hydronephrosis, with moderate to severe right sided hydroureter and hydronephrosis. Creat 5.36 today. IV NS at 100 cc/hr. Plan today of placement right nephrostomy tube. Started on Rocephin and Cipro for pos Leuk in urine, culture pending. Previous urine culture positive for enterococcus faecalis and Staph Epi. Past Med Surg Social Fam HX - Past Medical History Medical history: cancer, diabetes, hyperlipidemia, hypertension Psychiatric history: no psych history - Past Surgical History Surgical History: orthopedic, other, ureteral stent - Social History Smoking Status: Never smoker Smokeless Tobacco Status: No Alcohol use: none Drug use: none - Family History Father History Unknown: Yes Living Status: Hx Family Cardiac Disorders: No Hx Family Respiratory Disorders: No Hx Family Cancer: Yes (Prostate) Hx Family GI Disorders: No Hx Family Endocrine Disorder: Yes (Diabetes) Hx Family Neuromuscular Disorders: No Hx Family Neurologic Disorders: No Hx Family HEENT Disorders: No Hx Family Autoimmune Disorders: No Brother History Unknown: Yes Living Status: Still Living Hx Family Cancer: Yes (prostate cancer) Medications and Allergies Insulin DETEMIR [Levemir] 30 unit SQ HS 30 Days [id number] 12/06/16 [Rx] Sertraline [Zoloft] 25 mg PO DAILY 04/13/16 [History] Folic Acid 1 mg PO DAILY 11/17/16 [History] Insulin ASPART [Novolog Flexpen] 15 unit SQ TID 11/17/16 [History] Ondansetron HCl [Zofran] 4 mg PO Q8H PRN 11/17/16 [History] Diltiazem CD (24hr) [Cardizem CD] 240 mg PO DAILY 12/15/16 [History] Docusate [Colace] 100 mg PO DAILY PRN 01/12/17 [History] Omeprazole [PriLOSEC] 40 mg PO DAILY 01/12/17 [History] 3 Allergy/AdvReac Type Severity Reaction Status Date / Time No Known Allergies Allergy Verified 01/12/17 18:26 Review of Systems All Systems: reviewed and no additional remarkable complaints except as stated Exam - Vital Signs Vital signs: Initial Vital Signs Temp Pulse Resp BP Pulse Ox 98.0 F 76 18 169/105 98 01/12/17 17:21 01/12/17 17:21 01/12/17 17:21 01/12/17 17:21 01/12/17 17:21 Vital Signs - Last 8 Hours Temp Pulse Resp BP Pulse Ox 01/13/17 07:44 97.9 F 68 17 150/80 94 01/13/17 04:45 98.1 F 76 18 144/74 95 Intake and Output 01/12/17 01/13/17 01/13/17 23:59 07:59 15:59 Intake Total Balance Intake: IV Fluids Rocephin 1,000 MG In Water for inj. (sterile) 10 ML @ 300 mls/ hr IVP DAILY [facility] Rx#:[id number] Other: Weight 103.963 kg Blood Glucose* 131 178 - General Appearance General appearance: well-developed, well-nourished, appears started age EENT: mucous membranes moist Neck: no JVD Respiratory: clear Cardiology: no edema, regular rate, regular rhythm Gastrointestinal: normoactive bowel sounds, no tenderness Integumentary: warm and dry Neurologic: alert and oriented x3 Psychiatric: mood/affect appropriate, cooperative Results - Lab Results 01/13/17 03:07 01/13/17 03:07 Most recent lab results ABG pH 7.41 pH Units (7.32-7.45) 01/12/17 18:30 ABG pCO2 32 mmHg (35-45) L 01/12/17 18:30 ABG pO2 82 mmHg (85-104) L 01/12/17 18:30 ABG HCO3 20 mEq/L (21-27) L 01/12/17 18:30 ABG O2 Saturation 96 % (95-98) 01/12/17 18:30 Calcium 8.7 mg/dL (8.6-10.8) 01/13/17 03:07 Consult Discharge Plan - Plan Referrals: Saleem Ramirez DO [Primary Care Provider] -
[2017-01-13] MEDS ORDERED: 0.9 % Sodium Chloride 500 ML ONE (09:39)
[2017-01-13] MEDS ORDERED: *HR* Midazolam HCl 2 MG/2 ML VIAL IVP ONE (09:46)
--- NOTE | 2017-01-13 09:46 | Pre-Sedation Evaluation ---
Pre-sedation evaluation - Pre-sedation checklist Date of procedure: 01/13/17 Procedure: right nephrostomy Recent Vitals: Last Vital Signs Temp 97.9 F 01/13/17 07:44 Pulse 68 01/13/17 07:44 Resp 17 01/13/17 07:44 BP 150/80 01/13/17 07:44 Pulse Ox 94 01/13/17 07:44 Dietary Status: NPO after Midnight ASA Classification *see protocol: CLASS III-Severe systemic disease Plan of Care: Pt appropriate candidate for procedure/moderate/conscious sedation , Risks/benefits of procedure/sedation discussed w/ patient/family
[2017-01-13] MEDS ORDERED: *HR* FentaNYL (PF) 100 MCG/2 ML VIAL IVP ONE (09:47)
[2017-01-13] MEDS ORDERED: Ondansetron 4 MG/2 ML VIAL ONE (09:59)
--- NOTE | 2017-01-13 10:26 | IR Procedure Note ---
Date of procedure: 01/13/17 Consent Obtained: Written consent Timeout: Correct patient and procedure verified, Correct site verified, Time out performed, Skin prep completed Local anesthetic: Lidocaine 1% Indications: Right hydro Procedure Performed: Right nephrostomy placement Results/Findings: 10F right PCN placement Complications: None; Tolerated procedure well (Monitor on floor)
--- NOTE | 2017-01-13 10:43 | Internal Med Progress Note ---
<Rigo Encinas T - Last Filed: 01/13/17 15:18> Date of Encounter: 01/13/17 - Constitutional Vitals: Temp Pulse Resp BP Pulse Ox 98.2 F 70 18 138/67 94 01/13/17 11:19 01/13/17 11:19 01/13/17 11:19 01/13/17 11:19 01/13/17 11:19 Internal Medicine: Result - Labs CBC & Chem 7: 01/13/17 03:07 01/13/17 03:07 Labs: Short CBC 01/13/17 Range/Units 03:07 WBC 6.9 (4.3-11.1) K/mcL Hgb 9.5 L (12.9-16.9) g/dL Hct 29.8 L (37.5-50.1) % Plt Count 468 H (140-400) K/mcL Neutrophils # 5.2 (1.6-8.9) K/mcL BMP 01/13/17 03:07 Sodium 138 Potassium 3.9 Chloride 107 Carbon Dioxide 20 BUN 54 H Creatinine 5.36 H Glucose 232 H Calcium 8.7 - ABG Interpretation ABG results: ABG ABG pH 7.41 pH Units (7.32-7.45) 01/12/17 18:30 ABG pCO2 32 mmHg (35-45) L 01/12/17 18:30 ABG pO2 82 mmHg (85-104) L 01/12/17 18:30 ABG O2 Saturation 96 % (95-98) 01/12/17 18:30 PT/INR, D-dimer PT 12.6 Seconds (9.4-12.1) H 01/13/17 08:02 - Impressions Impressions Abdomen/Pelvis CT 01/12/17 21:49 IMPRESSION: 1. Limited study due to lack of IV contrast. 2. Double-J ureteral stents in place. 3. Stable to slightly worse moderate/severe right hydroureter and hydronephrosis. Stable moderate left hydronephrosis. 4. Interval placement of radiation seeds within the prostate, which is slightly smaller. Compared to the prior study, there is increased bladder wall thickening and pericystic inflammatory changes, with increase in inflammatory changes extending along the course of the bilateral ureters. Findings are nonspecific. The differential diagnosis include infectious ascending cystitis/UTI. Other possibilities include sequela of prior treatment or radiation. 5. Stable 10 mm nonobstructing right renal calculus. The previously noted left renal calculus no longer visualized. D/ / 01/12/2017 23:32:27 Manjeet Soto MD / Thea Sahu Interpreting Provider: Manjeet Soto MD Guidance Needle Placement Ultrasound 01/13/17 00:00 IMPRESSION: 1. Occluded right ureteral stent with subsequent right hydronephrosis. 2. Right 10 Palestinian percutaneous nephrostomy placement. D/ / Walt Ray MD / Walt Ray MD Interpreting Provider: Walt Ray MD Nephrostomy 01/13/17 00:00 IMPRESSION: 1. Occluded right ureteral stent with subsequent right hydronephrosis. 2. Right 10 Palestinian percutaneous nephrostomy placement. D/ / Walt Ray MD / Walt Ray MD Interpreting Provider: Walt Ray MD Nephrostomy 01/13/17 07:42 IMPRESSION: 1. Occluded right ureteral stent with subsequent right hydronephrosis. 2. Right 10 Palestinian percutaneous nephrostomy placement. D/ / Walt Ray MD / Walt Ray MD Interpreting Provider: Walt Ray MD Consult Discharge Plan - Plan Referrals: Saleem Ramirez DO [Primary Care Provider] - (web request sent on 03/01) - Attending Attestation I independently saw and examined this patient on 01/13/17, plan of care is as detailed in the resident physician's documentation 66-year-old male with medical history of prostate CVA, diabetes mellitus, hypertension who is admitted and being managed for acute kidney injury on chronic kidney disease secondary to obstructive uropathy, bilateral hydronephrosis, and suspected urinary tract infection. Patient is seen and evaluated at the bedside He did complain of burning on urination which started since he got radiation for his prostate CVA. He has an indwelling left ureteral stent. He had 2 episodes of hematuria in the past week. Physical examination vital signs are stable he is not pale he is anicteric his oral mucosa is moist. Chest examination is clear to auscultation bilaterally. Heart sounds S1 and S2 no murmurs. Abdomen is soft and non-tender no suprapubic tenderness. Back exam there is no CVA tenderness. He has no pedal edema. He has no skin rash. Labs and imaging reviewed and noted for right greater than left hydronephrosis, non-obstructing nephrolithiasis, cystitis on CAT scan. Acute on chronic kidney injury with creatinine slowly improving from 6 on admission to 5 this morning. Assessment and plan: APOORVA on CKD secondary to obstructive uropathy, urinary tract infection suspected cystitis possibly secondary to radiation cannot rule out bacterial infection. Continue IV fluid hydration strict intake and output monitoring, patient is for nephrostomy tube placement for the right hydronephrosis today. Nephrology is following. Resume home medications for diabetes and hypertension control. Patient is otherwise clinically stable. Rest as in resident physician's documentation <Yves Antonio - Last Filed: 01/13/17 17:52> Date of Encounter: 01/13/17 Time of Encounter: 10:45 - Assessment and plan (1) Acute kidney failure Current Visit: Yes Status: Acute Assessment and plan: BUN was 62, creatinine 6.15 on admission. -Retroperitoneal ultrasound performed on 12/14/16 revealed the following: Moderate bilateral hydronephrosis and intrarenal calculi and left renal cysts. -Nephrostomy tube was placed today; patient denies any complications or pain after his procedure. -Gentle IV fluids for possible prerenal causes versus increased flow for possible stone passage. -Renal diet. -Repeat a.m. labs and continue to monitor creatinine. -Both nephrology and urology are on board. Qualifiers: Acute renal failure type: unspecified Qualified Code(s): N17.9 - Acute kidney failure, unspecified (2) UTI (urinary tract infection) Current Visit: No Status: Acute Assessment and plan: Patient likely has a complicated UTI. Patient's previous urine culture was positive for Enterococcus faecalis in April. Plan: -Rocephin 200 mg IV Q12. Qualifiers: Urinary tract infection type: acute cystitis Hematuria presence: without hematuria Qualified Code(s): N30.00 - Acute cystitis without hematuria (3) Prostate CA Current Visit: No Status: Chronic Assessment and plan: Patient is status post radiation treatments. -According to patient's , he has received a total of 39 treatments. -Nephrology on board. (4) Diabetes mellitus Current Visit: No Status: Chronic Assessment and plan: Patient's last known hemoglobin A1c was 6.2. Low-dose sliding scale protocol. 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 Blood pressure this morning was 150/80. Qualifiers: Hypertension type: essential hypertension Qualified Code(s): I10 - Essential (primary) hypertension (6) Anemia Current Visit: No Status: Acute Assessment and plan: Patient's hemoglobin appears to be low at baseline. Patient's hemoglobin this morning was 9.5. Continue to monitor. Qualifiers: Qualified Code(s): D64.9 - Anemia, unspecified - Subjective Interval history: Patient is a 66-year-old male who was sent to the hospital by his urologist on 01/12/17. This patient's outpatient labs revealed significant elevation in his creatinine level at 6.15. He has received multiple stents by his urologist; they have failed. He was admitted for possible acute renal failure and possible nephrostomy tube placement. Upon admission, patient complained of suprapubic tenderness which was constant throughout his cancer. Patient follows oncologist Dr. Cuenca who has been treating his cancer with radiation. He has completed 39 radiation treatments. Patient did complain of some dysuria on presentation, but does make some urine. Upon admission, patient's BUN was 65. His blood pressure was elevated at 169/105. Patient's condition was most likely due to post obstructive nephropathy. EKG demonstrated incomplete bundle branch block. There was no need for emergent dialysis. CT scan of the abdomen and pelvis was performed. It demonstrated stable to slightly worse moderate to severe right-sided hydronephrosis. There was stable moderate left-sided hydronephrosis. It revealed a double-J ureteral stent in place. There were also pericystic inflammatory changes, as well as inflammatory changes extending up both ureters. These findings are possible concerns for ascending cystitis or UTI. These are also possibly the result of radiation. There was also a stable 10 mm nonobstructing right-sided renal calculus. Renal ultrasound was performed on 12/14/16: Demonstrated the presence of moderate bilateral hydronephrosis, intrarenal calculi and left renal cyst. [facility] nephrology was consult. Patient was placed nothing by mouth with placement of a nephrostomy tube. Urinalysis revealed possible UTI. Patient was started on Rocephin and renally dosed ciprofloxacin. - Constitutional Vitals: Temp Pulse Resp BP Pulse Ox 97.9 F 77 10 147/79 97 01/13/17 07:44 01/13/17 10:22 01/13/17 10:22 01/13/17 10:22 01/13/17 10:22 General appearance: Present: cooperative, A&O X 3, pleasant, no acute distress Internal Medicine: Result - Labs CBC & Chem 7: 01/13/17 03:07 01/13/17 03:07 Labs: Short CBC 01/13/17 Range/Units 03:07 WBC 6.9 (4.3-11.1) K/mcL Hgb 9.5 L (12.9-16.9) g/dL Hct 29.8 L (37.5-50.1) % Plt Count 468 H (140-400) K/mcL Neutrophils # 5.2 (1.6-8.9) K/mcL BMP 01/13/17 03:07 Sodium 138 Potassium 3.9 Chloride 107 Carbon Dioxide 20 BUN 54 H Creatinine 5.36 H Glucose 232 H Calcium 8.7 - ABG Interpretation ABG results: ABG ABG pH 7.41 pH Units (7.32-7.45) 01/12/17 18:30 ABG pCO2 32 mmHg (35-45) L 01/12/17 18:30 ABG pO2 82 mmHg (85-104) L 01/12/17 18:30 ABG O2 Saturation 96 % (95-98) 01/12/17 18:30 PT/INR, D-dimer PT 12.6 Seconds (9.4-12.1) H 01/13/17 08:02 - Impressions Impressions Abdomen/Pelvis CT 01/12/17 21:49
[2017-01-13] MEDS: 0.9 % Sodium Chloride 1,000 ML IVC SCH ×2 (11:51→21:51)
[2017-01-13] MEDS: Insulin LISPRO 300 UNITS/3 ML VIAL SQ SCH ×3 (11:51→21:24)
[2017-01-13] MEDS: *HR* OxyCODONE Immed Rel 5 MG TABLET PO PRN ×2 (13:30→21:14)
[2017-01-13] MEDS: *HR* Morphine 2 MG/ML SYRINGE IVP PRN (15:38)
--- NOTE | 2017-01-13 17:38 | Electrocardiograph Report ---
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
[2017-01-13] MEDS: Insulin DETEMIR 100 UNIT/ML X5UNITS SQ SCH (21:13)
[2017-01-13] MEDS ORDERED: cefTRIAXone 1,000 MG in Water for inj. (sterile) 10 ML IVP SCH (21:56)
[2017-01-14] MEDS: *HR* Morphine 2 MG/ML SYRINGE IVP PRN (01:03)
[2017-01-14 05:55] LABS: Hematocrit 30.3 % (37.5-50.1); Hemoglobin 9.5 g/dL (12.9-16.9); Mean Corpuscular HGB Conc 31.4 g/dL (31.6-35.5); Mean Corpuscular Hemoglobin 29.4 pg (28.0-33.3); Mean Corpuscular Volume 93.8 fL (83.0-100.0); Red Blood Count 3.23 M/mcL (4.19-5.50); Red Cell Distribution Width 13.5 % (11.5-14.5)
[2017-01-14 05:56] LABS: Basophils % 0.4 %; Eosinophils # 0.1 K/mcL (0.0-0.6); Eosinophils % 1.7 %; Immature Granulocytes % 0.7 % (0-4); Lymphocytes # 0.5 K/mcL (0.6-4.6); Lymphocytes % 6.6 %; Mean Platelet Volume 8.7 fL (9.4-12.4); Monocytes # 0.5 K/mcL (0.0-1.3); Neutrophils # 6.9 K/mcL (1.6-8.9); Platelet Count 377 K/mcL (140-400); Segmented Neutrophils % 84.6 %
[2017-01-14 06:06] LABS: Calcium 8.6 mg/dL (8.6-10.8); Potassium 4.1 mEq/L (3.5-4.5)
[2017-01-14] MEDS: Insulin LISPRO 300 UNITS/3 ML VIAL SQ SCH ×4 (08:22→21:21)
[2017-01-14] MEDS: 0.9 % Sodium Chloride 1,000 ML IVC SCH (08:22)
[2017-01-14] MEDS: Folic Acid 1 MG TABLET PO SCH (08:24)
[2017-01-14] MEDS: Diltiazem CD (24hr) 240 MG CAPSULE PO SCH (08:24)
[2017-01-14] MEDS: cefTRIAXone 1,000 MG in Water for inj. (sterile) 10 ML IVP SCH (08:25)
[2017-01-14] MEDS: Ondansetron ODT 4 MG TAB.RAPDIS PO PRN (08:30)
[2017-01-14] MEDS: *HR* OxyCODONE Immed Rel 5 MG TABLET PO PRN ×2 (08:30→16:25)
--- NOTE | 2017-01-14 08:50 | Nephrology Progress Note ---
Date of Encounter: 01/14/17 Time of Encounter: 08:42 - Assessment and Plan (1) APOORVA (acute kidney injury) Current Visit: No Status: Acute 1. Acute renal failure ; Secondary to obstruction and some degree of volume depletion. has underlying CKD with baseline creatinine in the low 2 range. Non anion gap Metabolic acidosis serum creatinine is trending down. continue IV fluids, and sodium bicarb. Check magnesium, phosphate and renal panel in a.m. 2. Prostate cancer with bilateral ureteral obstruction right percutaneous nephrostomy tube is training well 3. Essential hypertension. BP borderline high, continue diltiazem monitor for the readings today. 4. Anemia of chronic disease, gets Aranesp as outpatient, last dose 3 days ago Subjective Principal diagnosis: f/u of acute on chronic renal failure Interval history: 66-year-old male with prostate cancer admitted with acute renal failure, cr 6.1. baseline cr in the low 2 range. h/o prostate cancer, s/p TURP, radiation treatment, on androgen deprivation treatment. h/o bilateral ureteral obstruction has stents in place CT abdomen; stable left moderate hydronephrosis, moderate to severe rt hydroureter and hydronephrosis. Patient started on IV fluids, cr trended down to 5.3 had right percutaneous nephrostomy yesterday. Afebrile overnight, BP stable borderline high. Urine output 600 ML, rt nephrostomy output 880. Intake 800. Has abdominal discomfort, nausea and burping for the last several days. Was taking Zofran TID at home. Has seen GI physician, scheduled have EGD and colonoscopy as outpatient yesterday. c/o nausea, vomited last night and this morning. Got a dose of Zofran this morning. Has minimal headache. Denies constipation Objective - Vital Signs Vital signs: Vital Signs Temp Pulse Resp BP Pulse Ox 01/14/17 07:41 98.1 F 78 17 147/76 92 01/14/17 05:43 97.8 F 80 16 148/78 92 01/14/17 01:24 98.3 F 68 16 153/72 94 01/13/17 19:56 98.4 F 62 16 131/70 94 01/13/17 11:19 98.2 F 70 18 138/67 94 01/13/17 10:22 77 10 147/79 97 01/13/17 10:15 79 16 149/81 91 Intake and Output 01/13/17 01/14/17 01/14/17 23:59 07:59 15:59 Intake Total 1000 / 1000 800 / 800 Output Total 570 / 570 1480 / 1480 Balance 430 / 430 -680 / -680 Intake: IV Fluids 1000 / 1000 0.9 % Sodium Chloride 1,000 ML 1000 / 1000 @ 100 mls/hr IVC .Q10H RAUL Rx#: [id number] Oral 800 / 800 Output: Urine 225 / 225 600 / 600 Wound Drainage 345 / 345 880 / 880 Right Back 345 / 345 880 / 880 Other: Meal Fresh water/ice given Weight 104.054 kg Blood Glucose* 145 214 Patient Weight 01/14/17 23:59 Weight 104.054 kg - General Appearance Exam: CVS; S1 S2 present regular, no murmurs RESP; good air entry, clear ABD; soft, minimal tenderness in LLQ, RLQ and epigastric area, no rebound, BS present ext; no edema, DP palpable - Lab 01/14/17 05:19 01/14/17 05:19 Most recent lab results ABG pH 7.41 pH Units (7.32-7.45) 01/12/17 18:30 ABG pCO2 32 mmHg (35-45) L 01/12/17 18:30 ABG pO2 82 mmHg (85-104) L 01/12/17 18:30 ABG HCO3 20 mEq/L (21-27) L 01/12/17 18:30 ABG O2 Saturation 96 % (95-98) 01/12/17 18:30 Calcium 8.6 mg/dL (8.6-10.8) 01/14/17 05:19 Consult Discharge Plan - Plan Referrals: Saleem Ramirez DO [Primary Care Provider] - (web request sent on 03/01)
[2017-01-14] MEDS ORDERED: Sodium Bicarbonate 50 MEQ in 0.45 % Sodium Chloride 1,000 ML IVC SCH (09:30)
--- NOTE | 2017-01-14 09:55 | Urology Progress Note ---
Date of Encounter: 01/14/17 Time of Encounter: 09:53 - Assessment and Plan (1) Hydronephrosis Current Visit: Yes Status: Acute Assessment and plan: Status post right nephrostomy tube placement doing well. I will consider placement of coiled metallic stents as an outpatient, but he will need to keep his nephrostomy tube for now. I feel that his left kidney is still draining well as he continues to urinate. Qualifiers: Qualified Code(s): N13.39 - Other hydronephrosis (2) APOORVA (acute kidney injury) Current Visit: No Status: Acute Assessment and plan: Appreciate nephrology input. Continue to follow creatinine. (3) UTI (urinary tract infection) Current Visit: No Status: Acute Assessment and plan: He is growing out yeast again. He has previously consult with infectious disease. The yeast has not historically been sensitive to fluconazole. 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 I typically do not recommend treatment unless he clinically showed signs of infection such as fever or worsening white count. His temperature curve has been normal and he has a normal white count. Qualifiers: Urinary tract infection type: acute cystitis Hematuria presence: without hematuria Qualified Code(s): N30.00 - Acute cystitis without hematuria (4) Prostate CA Current Visit: No Status: Chronic Assessment and plan: PSA stable at 0.4. (5) Hematuria Current Visit: Yes Status: Acute Assessment and plan: Resolved for now. Qualifiers: Qualified Code(s): R31.0 - Gross hematuria Progress Note Narrative: 66-year-old man with locally advanced prostate cancer and bilateral ureteral obstruction and was admitted for acute renal failure. He had a right nephrostomy tube placed as I was concerned that his right kidney had become obstructed despite having a stent in. His creatinine has improved and is now down to 4.8. He was at 6.15. The nephrostomy tube is draining well and the urine is clear. He continues to pass urine from his bladder. Objective Initial Vital Signs Temp Pulse Resp BP Pulse Ox 98.0 F 76 18 169/105 98 01/12/17 17:21 01/12/17 17:21 01/12/17 17:21 01/12/17 17:21 01/12/17 17:21 - General physical appearance Present: well developed, well nourished, no distress - Respiratory Present: normal respiratory effort - Abdomen Present: soft - Labs 01/14/17 05:19 01/14/17 05:19 Diabetes panel 01/14/17 Range/Units 05:19 Sodium 139 (136-145) mEq/L Potassium 4.1 (3.5-4.5) mEq/L Chloride 110 H (98-109) mEq/L Carbon Dioxide 16 L (19-29) mEq/L BUN 46 H (8-26) mg/dL Creatinine 4.80 H (0.72-1.25) mg/dL Glucose 184 H (70-99) mg/dL Calcium 8.6 (8.6-10.8) mg/dL Calcium panel 01/14/17 Range/Units 05:19 Calcium 8.6 (8.6-10.8) mg/dL Pituitary panel 01/14/17 Range/Units 05:19 Sodium 139 (136-145) mEq/L Potassium 4.1 (3.5-4.5) mEq/L Chloride 110 H (98-109) mEq/L Carbon Dioxide 16 L (19-29) mEq/L BUN 46 H (8-26) mg/dL Creatinine 4.80 H (0.72-1.25) mg/dL Glucose 184 H (70-99) mg/dL Calcium 8.6 (8.6-10.8) mg/dL Adrenal panel 01/14/17 Range/Units 05:19 Sodium 139 (136-145) mEq/L Potassium 4.1 (3.5-4.5) mEq/L Chloride 110 H (98-109) mEq/L Carbon Dioxide 16 L (19-29) mEq/L BUN 46 H (8-26) mg/dL Creatinine 4.80 H (0.72-1.25) mg/dL Glucose 184 H (70-99) mg/dL Calcium 8.6 (8.6-10.8) mg/dL Consult Discharge Plan - Plan Referrals: Saleem Ramirez DO [Primary Care Provider] - (web request sent on 03/01)
[2017-01-14] MEDS: Sodium Bicarbonate 50 MEQ in 0.45 % Sodium Chloride 1,000 ML IVC SCH ×2 (10:36→21:23)
--- NOTE | 2017-01-14 11:00 | Internal Med Progress Note ---
<Yves Antonio - Last Filed: 01/14/17 13:06> Date of Encounter: 01/14/17 Time of Encounter: 10:45 - Assessment and plan (1) Acute kidney failure Current Visit: Yes Status: Acute Assessment and plan: BUN was 62, creatinine 6.15 on admission. -Retroperitoneal ultrasound performed on 12/14/16 revealed the following: Moderate bilateral hydronephrosis and intrarenal calculi and left renal cysts. -Nephrostomy tube has been placed; it is draining without difficulty. No complications or pain. -Gentle IV fluids for possible prerenal causes versus increased flow for possible stone passage. -Renal diet. -Patient's creatinine this morning was 4.8. Baseline is 1.5-1.8. -Both nephrology and urology are on board. Qualifiers: Acute renal failure type: unspecified Qualified Code(s): N17.9 - Acute kidney failure, unspecified (2) UTI (urinary tract infection) Current Visit: No Status: Acute Assessment and plan: Patient likely has a complicated UTI. Patient's previous urine culture was positive for Enterococcus faecalis in April. Plan: -Rocephin 200 mg IV Q12. Qualifiers: Urinary tract infection type: acute cystitis Hematuria presence: without hematuria Qualified Code(s): N30.00 - Acute cystitis without hematuria (3) Prostate CA Current Visit: No Status: Chronic Assessment and plan: Patient is status post radiation treatments. -According to patient's , he has received a total of 39 treatments. -Nephrology on board. (4) Diabetes mellitus Current Visit: No Status: Chronic Assessment and plan: Patient's last known hemoglobin A1c was 6.2. Low-dose sliding scale protocol. Qualifiers: Diabetes mellitus type: type 2 Diabetes mellitus complication status: with hyperglycemia Diabetes mellitus fci insulin use: with fci use Qualified Code(s): E11.65 - Type 2 diabetes mellitus with hyperglycemia; Z79.4 - buttermaker (current) use of insulin (5) Hypertension Current Visit: No Status: Chronic Assessment and plan: Continued diltiazem and hydralazine. Blood pressure this morning was 147/76. Qualifiers: Hypertension type: essential hypertension Qualified Code(s): I10 - Essential (primary) hypertension (6) Anemia Current Visit: No Status: Acute Assessment and plan: Patient's hemoglobin appears to be low at baseline. Patient's hemoglobin this morning was 9.5. Continue to monitor. Qualifiers: Qualified Code(s): D64.9 - Anemia, unspecified (7) Metabolic acidosis Current Visit: Yes Status: Acute Assessment and plan: Patient started on Sodium bicarbonate drip, 0.45% at 125 mls/hr - Subjective Interval history: Patient was seen and examined at bedside this morning. Reports a significant improvement in his urethral pain. Nephrostomy bag appears clear; no blood or purulent drainage observed. Patient has no complaints at this time. - Constitutional Vitals: Temp Pulse Resp BP Pulse Ox 98.1 F 78 17 147/76 92 01/14/17 07:41 01/14/17 07:41 01/14/17 07:41 01/14/17 07:41 01/14/17 08:50 General appearance: Present: cooperative, A&O X 3, pleasant, no acute distress Internal Medicine: Result - Labs CBC & Chem 7: 01/14/17 05:19 01/14/17 05:19 Labs: Short CBC 01/14/17 Range/Units 05:19 WBC 8.2 (4.3-11.1) K/mcL Hgb 9.5 L (12.9-16.9) g/dL Hct 30.3 L (37.5-50.1) % Plt Count 377 (140-400) K/mcL Neutrophils # 6.9 (1.6-8.9) K/mcL BMP 01/14/17 05:19 Sodium 139 Potassium 4.1 Chloride 110 H Carbon Dioxide 16 L BUN 46 H Creatinine 4.80 H Glucose 184 H Calcium 8.6 - ABG Interpretation ABG results: ABG ABG pH 7.41 pH Units (7.32-7.45) 01/12/17 18:30 ABG pCO2 32 mmHg (35-45) L 01/12/17 18:30 ABG pO2 82 mmHg (85-104) L 01/12/17 18:30 ABG O2 Saturation 96 % (95-98) 01/12/17 18:30 PT/INR, D-dimer PT 12.6 Seconds (9.4-12.1) H 01/13/17 08:02 - Impressions Impressions Guidance Needle Placement Ultrasound 01/13/17 00:00 IMPRESSION: 1. Occluded right ureteral stent with subsequent right hydronephrosis. 2. Right 10 [place] percutaneous nephrostomy placement. D/ / Walt Ray MD / Walt Ray MD Interpreting Provider: Walt Ray MD Nephrostomy 01/13/17 00:00 IMPRESSION: 1. Occluded right ureteral stent with subsequent right hydronephrosis. 2. Right 10 [place] percutaneous nephrostomy placement. D/ / Walt Ray MD / Walt Ray MD Interpreting Provider: Walt Ray MD Nephrostomy 01/13/17 07:42 IMPRESSION: 1. Occluded right ureteral stent with subsequent right hydronephrosis. 2. Right 10 [place] percutaneous nephrostomy placement. D/ / Walt Ray MD / Walt Ray MD Interpreting Provider: Walt Ray MD Consult Discharge Plan - Plan Referrals: Saleem Ramirez DO [Primary Care Provider] - (web request sent on 03/01) <Rigo Encinas T - Last Filed: 01/14/17 14:04> Date of Encounter: 01/14/17 - Constitutional Vitals: Temp Pulse Resp BP Pulse Ox 98.1 F 78 17 147/76 92 01/14/17 07:41 01/14/17 07:41 01/14/17 07:41 01/14/17 07:41 01/14/17 08:50 Internal Medicine: Result - Labs CBC & Chem 7: 01/14/17 05:19 01/14/17 05:19 Labs: Short CBC 01/14/17 Range/Units 05:19 WBC 8.2 (4.3-11.1) K/mcL Hgb 9.5 L (12.9-16.9) g/dL Hct 30.3 L (37.5-50.1) % Plt Count 377 (140-400) K/mcL Neutrophils # 6.9 (1.6-8.9) K/mcL BMP 01/14/17 05:19 Sodium 139 Potassium 4.1 Chloride 110 H Carbon Dioxide 16 L BUN 46 H Creatinine 4.80 H Glucose 184 H Calcium 8.6 - ABG Interpretation ABG results: ABG ABG pH 7.41 pH Units (7.32-7.45) 01/12/17 18:30 ABG pCO2 32 mmHg (35-45) L 01/12/17 18:30 ABG pO2 82 mmHg (85-104) L 01/12/17 18:30 ABG O2 Saturation 96 % (95-98) 01/12/17 18:30 PT/INR, D-dimer PT 12.6 Seconds (9.4-12.1) H 01/13/17 08:02 - Impressions Impressions Guidance Needle Placement Ultrasound 01/13/17 00:00 IMPRESSION: 1. Occluded right ureteral stent with subsequent right hydronephrosis. 2. Right 10 [place] percutaneous nephrostomy placement. D/ / Walt Ray MD / Walt Ray MD Interpreting Provider: Walt Ray MD Nephrostomy 01/13/17 00:00 IMPRESSION: 1. Occluded right ureteral stent with subsequent right hydronephrosis. 2. Right 10 [place] percutaneous nephrostomy placement. D/ / Walt Ray MD / Walt Ray MD Interpreting Provider: Walt Ray MD Nephrostomy 01/13/17 07:42 IMPRESSION: 1. Occluded right ureteral stent with subsequent right hydronephrosis. 2. Right 10 [place] percutaneous nephrostomy placement. D/ / Walt Ray MD / Walt Ray MD Interpreting Provider: Walt Ray MD - Attending Attestation I independently saw and examined this patient on 01/14/17, plan of care is as detailed in the resident physician's documentation 66-year-old male with medical history of prostate CVA, diabetes mellitus, hypertension who is admitted and being managed for acute kidney injury on chronic kidney disease secondary to obstructive uropathy, bilateral hydronephrosis, and suspected urinary tract infection. Patient is seen and evaluated at the bedside NO new complains Physical examination vital signs are stable he is not pale he is anicteric his oral mucosa is moist. Chest examination is clear to auscultation bilaterally. Heart sounds S1 and S2 no murmurs. Abdomen is soft and non-tender no suprapubic tenderness. Back exam there is no CVA tenderness. Nephrostomy tube draining clear urine. He has no pedal edema. He has no skin rash. Labs and imaging reviewed Renal function is improving, urine culture with yeast sp Assessment and plan: APOORVA on CKD secondary to obstructive uropathy, POD 1 s/p R nephrostomy, Urology and nephrology is following, renal function is improving, continue hydration urinary tract infection suspected cystitis possibly secondary to radiation cannot rule out bacterial infection. Continue IVRocephin, chart review shows chronic colonization with candidia, will not treat this time. Continue other management Rest as in resident physician's documentation
[2017-01-14] MEDS: Ondansetron 4 MG/2 ML VIAL IVP SCH ×2 (11:32→17:16)
[2017-01-14] MEDS: Insulin DETEMIR 100 UNIT/ML X5UNITS SQ SCH (21:21)
[2017-01-15] MEDS: Ondansetron 4 MG/2 ML VIAL IVP SCH ×3 (00:04→16:58)
[2017-01-15] MEDS: *HR* OxyCODONE Immed Rel 5 MG TABLET PO PRN ×2 (05:00→16:58)
[2017-01-15 07:26] LABS: Albumin 2.5 g/dL (3.5-5.0); Calcium 8.3 mg/dL (8.6-10.8); Magnesium 1.6 mg/dL (1.6-2.6); Phosphorous 3.8 mg/dL (2.3-4.7); Potassium 3.5 mEq/L (3.5-4.5); Uric Acid 5.2 mg/dL (3.5-7.2)
[2017-01-15] MEDS: Folic Acid 1 MG TABLET PO SCH (08:00)
[2017-01-15] MEDS: Diltiazem CD (24hr) 240 MG CAPSULE PO SCH (08:00)
[2017-01-15] MEDS: cefTRIAXone 1,000 MG in Water for inj. (sterile) 10 ML IVP SCH (08:01)
[2017-01-15] MEDS: Insulin LISPRO 300 UNITS/3 ML VIAL SQ SCH ×4 (08:11→20:43)
[2017-01-15 08:46] LABS: Hematocrit 28.3 % (37.5-50.1); Mean Corpuscular HGB Conc 31.8 g/dL (31.6-35.5); Mean Corpuscular Hemoglobin 29.4 pg (28.0-33.3); Mean Corpuscular Volume 92.5 fL (83.0-100.0); Mean Platelet Volume 8.9 fL (9.4-12.4); Platelet Count 351 K/mcL (140-400); Red Blood Count 3.06 M/mcL (4.19-5.50); Red Cell Distribution Width 13.4 % (11.5-14.5)
--- NOTE | 2017-01-15 09:17 | Nephrology Progress Note ---
Date of Encounter: 01/15/17 Time of Encounter: 09:11 - Assessment and Plan (1) APOORVA (acute kidney injury) Current Visit: No Status: Acute 1. Acute renal failure ; Secondary to obstruction and some degree of volume depletion. has underlying CKD with baseline creatinine in the low 2 range. Has Non anion gap Metabolic acidosis serum calcium collected to albumin is normal Serum creatinine trended down from 4.8 to 4.4. Serm bicarb has improved change IV fluids to half saline. Requested nursing staff to document I and O accurately 2. Prostate cancer with bilateral ureteral obstruction. Has left ureteral stent and rt nephrostomy tube 3. Essential HTN. BP stable, continue diltiazem 4. Anemia of chronic disease, gets Aranesp as outpatient, received a dose last week as outpatient Subjective Principal diagnosis: f/u of acute on chronic renal failure Interval history: Stable overnight, afebrile, Bp stable right nephrostomy 1400 ML, urine is clear. Denies G.I. symptoms with prn Zofran Objective - Vital Signs Vital signs: Vital Signs Temp Pulse Resp BP Pulse Ox 01/15/17 08:05 98.2 F 70 16 145/81 93 01/14/17 21:00 98.4 F 78 16 121/65 94 Intake and Output 01/14/17 01/15/17 01/15/17 23:59 07:59 15:59 Intake Total 1170 / 1170 0 / 0 Output Total 750 / 750 1625 / 1625 950 / 950 Balance 420 / 420 -1625 / -1625 -950 / -950 Intake: IV Fluids 1050 / 1050 Sodium Bicarbonate 50 MEQ In 0. 1050 / 1050 45% Sodium Chloride 1000 Ml 1000 Ml 1,000 ML @ 125 mls/hr IVC .[id number] [facility] Rx#:[id number] Oral 120 / 120 0 / 0 Output: Urine 200 / 200 700 / 700 Right Nephrostomy 475 / 475 Wound Drainage 550 / 550 925 / 925 475 / 475 Right Back 550 / 550 925 / 925 475 / 475 Other: Meal Dinner Percent of Meal Consumed 100% Blood Glucose* 241 137 - General Appearance Exam: CVS; s1s2 present, regular, no murmurs RESP; good air entry, clear ABD; soft, BT, BS present, no organomegaly EXT; no edema [employer]; alert, oriented x 3 - Lab 01/15/17 06:17 01/15/17 06:17 Most recent lab results ABG pH 7.41 pH Units (7.32-7.45) 01/12/17 18:30 ABG pCO2 32 mmHg (35-45) L 01/12/17 18:30 ABG pO2 82 mmHg (85-104) L 01/12/17 18:30 ABG HCO3 20 mEq/L (21-27) L 01/12/17 18:30 ABG O2 Saturation 96 % (95-98) 01/12/17 18:30 Calcium 8.3 mg/dL (8.6-10.8) L 01/15/17 06:17 Phosphorus 3.8 mg/dL (2.3-4.7) 01/15/17 06:17 Magnesium 1.6 mg/dL (1.6-2.6) 01/15/17 06:17 Consult Discharge Plan - Plan Referrals: Saleem Ramirez DO [Primary Care Provider] - (web request sent on 03/01)
[2017-01-15] MEDS: Sodium Bicarbonate 50 MEQ in 0.45 % Sodium Chloride 1,000 ML IVC SCH ×2 (09:28)
--- NOTE | 2017-01-15 10:22 | Internal Med Progress Note ---
<Rigo Encinas T - Last Filed: 01/15/17 12:55> Date of Encounter: 01/15/17 - Constitutional Vitals: Temp Pulse Resp BP Pulse Ox 98.2 F 70 16 145/81 93 01/15/17 08:05 01/15/17 08:05 01/15/17 08:05 01/15/17 08:05 01/15/17 08:05 Internal Medicine: Result - Labs CBC & Chem 7: 01/15/17 06:17 01/15/17 06:17 Labs: Short CBC 01/15/17 Range/Units 06:17 WBC 7.9 (4.3-11.1) K/mcL Hgb 9.0 L (12.9-16.9) g/dL Hct 28.3 L (37.5-50.1) % Plt Count 351 (140-400) K/mcL BMP 01/15/17 06:17 Sodium 138 Potassium 3.5 Chloride 107 Carbon Dioxide 23 BUN 39 H Creatinine 4.45 H Glucose 137 H Calcium 8.3 L Liver Function 01/15/17 Range/Units 06:17 Albumin 2.5 L (3.5-5.0) g/dL - ABG Interpretation ABG results: ABG ABG pH 7.41 pH Units (7.32-7.45) 01/12/17 18:30 ABG pCO2 32 mmHg (35-45) L 01/12/17 18:30 ABG pO2 82 mmHg (85-104) L 01/12/17 18:30 ABG O2 Saturation 96 % (95-98) 01/12/17 18:30 PT/INR, D-dimer PT 12.6 Seconds (9.4-12.1) H 01/13/17 08:02 Consult Discharge Plan - Plan Referrals: Saleem Ramirez DO [Primary Care Provider] - (web request sent on 03/01) - Attending Attestation I independently saw and examined this patient on 01/15/17, plan of care is as detailed in the resident physician's documentation 66-year-old male with medical history of prostate CVA, diabetes mellitus, hypertension who is admitted and being managed for acute kidney injury on chronic kidney disease secondary to obstructive uropathy, bilateral hydronephrosis, and suspected urinary tract infection. Patient is seen and evaluated at the bedside NO new complains Physical examination vital signs are stable he is not pale he is anicteric his oral mucosa is moist. Chest examination is clear to auscultation bilaterally. Heart sounds S1 and S2 no murmurs. Abdomen is soft and non-tender no suprapubic tenderness. Back exam there is no CVA tenderness. Nephrostomy tube draining clear urine. He has no pedal edema. He has no skin rash. Labs and imaging reviewed Renal function is improving, urine culture with yeast sp Assessment and plan: APOORVA on CKD secondary to obstructive uropathy, POD 2 s/p R nephrostomy, Urology and nephrology is following, renal function is improving, continue hydration D/C NACO3 and 0.45, give LR urinary tract infection suspected cystitis possibly secondary to radiation cannot rule out bacterial infection. Discontinue Rocephin. chart review shows chronic colonization with candidia, will not treat this time. Continue other management Rest as in resident physician's documentation <Yves Antonio - Last Filed: 01/15/17 13:40> Date of Encounter: 01/15/17 Time of Encounter: 09:45 - Assessment and plan (1) Acute kidney failure Current Visit: Yes Status: Acute Assessment and plan: BUN was 62, creatinine 6.15 on admission. -Retroperitoneal ultrasound performed on 12/14/16 revealed the following: Moderate bilateral hydronephrosis and intrarenal calculi and left renal cysts. -Nephrostomy tube has been placed; it is draining without difficulty. No complications or pain. -Renal diet. -Patient's creatinine this morning was 4.45. Baseline is 1.5-1.8. -Both nephrology and urology are on board. -LR was started today Qualifiers: Acute renal failure type: unspecified Qualified Code(s): N17.9 - Acute kidney failure, unspecified (2) UTI (urinary tract infection) Current Visit: No Status: Acute Assessment and plan: Initially diagnosed with complicated UTI. Patient's previous urine culture was positive for Enterococcus faecalis in April. -Rocephin was discontinued today. Qualifiers: Urinary tract infection type: acute cystitis Hematuria presence: without hematuria Qualified Code(s): N30.00 - Acute cystitis without hematuria (3) Prostate CA Current Visit: No Status: Chronic Assessment and plan: Patient is status post radiation treatments. -According to patient's , he has received a total of 39 treatments. -Nephrology on board. (4) Diabetes mellitus Current Visit: No Status: Chronic Assessment and plan: Patient's last known hemoglobin A1c was 6.2. -Low-dose sliding scale protocol. -Glucose this morning was 137. Qualifiers: Diabetes mellitus type: type 2 Diabetes mellitus complication status: with hyperglycemia Diabetes mellitus penitentiary insulin use: with manager long term care use Qualified Code(s): E11.65 - Type 2 diabetes mellitus with hyperglycemia; Z79.4 - correction (current) use of insulin (5) Hypertension Current Visit: No Status: Chronic Assessment and plan: Continued diltiazem and hydralazine. Blood pressure this morning was 145/81. Qualifiers: Hypertension type: essential hypertension Qualified Code(s): I10 - Essential (primary) hypertension (6) Anemia Current Visit: No Status: Acute Assessment and plan: Patient's hemoglobin appears to be low at baseline. Patient's hemoglobin this morning was 9.0. Continue to monitor. Qualifiers: Qualified Code(s): D64.9 - Anemia, unspecified (7) Metabolic acidosis Current Visit: Yes Status: Acute Assessment and plan: Sodium bicarbonate drip d/c. LR started today. - Subjective Interval history: Patient was seen and examined at bedside this morning. Denies any urethral pain. Nephrostomy bag appears clear; no blood or purulent drainage observed. Patient has no complaints at this time. - Constitutional Vitals: Temp Pulse Resp BP Pulse Ox 98.2 F 70 16 145/81 93 01/15/17 08:05 01/15/17 08:05 01/15/17 08:05 01/15/17 08:05 01/15/17 08:05 General appearance: Present: cooperative, A&O X 3, pleasant, no acute distress - Head Head exam: Present: atraumatic, normocephalic - Eye Eye exam: Present: PERRL, conjuntiva pink, sclera anicteric Pupils: Present: PERRL - Neck Neck exam general surgery: Present: supple, trachea midline. Absent: lymphadenopathy - Respiratory Respiratory exam: Present: CTAB. Absent: accessory muscle use, rales, rhonchi, wheezes - Cardiovascular Cardiovascular exam: Present: RRR, +S1, +S2. Absent: diastolic murmur, gallop, rubs, systolic murmur - Back Exam Additional comments: Nephrostomy bag observed - Skin Skin exam: Present: dry, intact Internal Medicine: Result - Labs CBC & Chem 7: 01/15/17 06:17 01/15/17 06:17 Labs: Short CBC 01/15/17 Range/Units 06:17 WBC 7.9 (4.3-11.1) K/mcL Hgb 9.0 L (12.9-16.9) g/dL Hct 28.3 L (37.5-50.1) % Plt Count 351 (140-400) K/mcL BMP 01/15/17 06:17 Sodium 138 Potassium 3.5 Chloride 107 Carbon Dioxide 23 BUN 39 H Creatinine 4.45 H Glucose 137 H Calcium 8.3 L Liver Function 01/15/17 Range/Units 06:17 Albumin 2.5 L (3.5-5.0) g/dL - ABG Interpretation ABG results: ABG ABG pH 7.41 pH Units (7.32-7.45) 01/12/17 18:30 ABG pCO2 32 mmHg (35-45) L 01/12/17 18:30 ABG pO2 82 mmHg (85-104) L 01/12/17 18:30 ABG O2 Saturation 96 % (95-98) 01/12/17 18:30 PT/INR, D-dimer PT 12.6 Seconds (9.4-12.1) H 01/13/17 08:02
--- NOTE | 2017-01-15 11:06 | Urology Progress Note ---
Date of Encounter: 01/15/17 Time of Encounter: 11:05 - Assessment and Plan (1) Hydronephrosis Current Visit: Yes Status: Acute Assessment and plan: Status post right nephrostomy tube. Renal function is improving. We will follow for now. Qualifiers: Qualified Code(s): N13.39 - Other hydronephrosis (2) APOORVA (acute kidney injury) Current Visit: No Status: Acute Assessment and plan: Appreciate nephrology input. We'll follow creatinine. (3) UTI (urinary tract infection) Current Visit: No Status: Acute Assessment and plan: He has used in his urine. We will hold off on antifungal treatment for now as he is not showing signs of infection. Qualifiers: Urinary tract infection type: acute cystitis Hematuria presence: without hematuria Qualified Code(s): N30.00 - Acute cystitis without hematuria (4) Prostate CA Current Visit: No Status: Chronic (5) Hematuria Current Visit: Yes Status: Acute Qualifiers: Qualified Code(s): R31.0 - Gross hematuria Progress Note Narrative: 66-year-old man with locally advanced prostate cancer and bilateral ureteral obstruction and was admitted for acute renal failure. He had a right nephrostomy tube placed. His creatinine has improved and is now down to 4.4. He was at 6.15. The nephrostomy tube is draining well and the urine is clear. He continues to pass urine from his bladder Objective Initial Vital Signs Temp Pulse Resp BP Pulse Ox 98.0 F 76 18 169/105 98 01/12/17 17:21 01/12/17 17:21 01/12/17 17:21 01/12/17 17:21 01/12/17 17:21 - General physical appearance Present: well developed, well nourished, no distress - Respiratory Present: normal respiratory effort - Abdomen Present: soft - Genitourinary Urine Appearance: Present: Clear - Labs 01/15/17 06:17 01/15/17 06:17 Diabetes panel 01/15/17 Range/Units 06:17 Sodium 138 (136-145) mEq/L Potassium 3.5 (3.5-4.5) mEq/L Chloride 107 (98-109) mEq/L Carbon Dioxide 23 (19-29) mEq/L BUN 39 H (8-26) mg/dL Creatinine 4.45 H (0.72-1.25) mg/dL Glucose 137 H (70-99) mg/dL Calcium 8.3 L (8.6-10.8) mg/dL Albumin 2.5 L (3.5-5.0) g/dL Calcium panel 01/15/17 Range/Units 06:17 Calcium 8.3 L (8.6-10.8) mg/dL Phosphorus 3.8 (2.3-4.7) mg/dL Albumin 2.5 L (3.5-5.0) g/dL Pituitary panel 01/15/17 Range/Units 06:17 Sodium 138 (136-145) mEq/L Potassium 3.5 (3.5-4.5) mEq/L Chloride 107 (98-109) mEq/L Carbon Dioxide 23 (19-29) mEq/L BUN 39 H (8-26) mg/dL Creatinine 4.45 H (0.72-1.25) mg/dL Glucose 137 H (70-99) mg/dL Calcium 8.3 L (8.6-10.8) mg/dL Adrenal panel 01/15/17 Range/Units 06:17 Sodium 138 (136-145) mEq/L Potassium 3.5 (3.5-4.5) mEq/L Chloride 107 (98-109) mEq/L Carbon Dioxide 23 (19-29) mEq/L BUN 39 H (8-26) mg/dL Creatinine 4.45 H (0.72-1.25) mg/dL Glucose 137 H (70-99) mg/dL Calcium 8.3 L (8.6-10.8) mg/dL Albumin 2.5 L (3.5-5.0) g/dL Consult Discharge Plan - Plan Referrals: Saleem Ramirez DO [Primary Care Provider] - (web request sent on 03/01)
[2017-01-15] MEDS: Ringers Solution, Lactated 1,000 ML IVC SCH ×2 (12:03→19:29)
[2017-01-15] MEDS: Insulin DETEMIR 100 UNIT/ML X5UNITS SQ SCH (20:41)
[2017-01-16] MEDS: *HR* OxyCODONE Immed Rel 5 MG TABLET PO PRN ×2 (00:15→06:49)
[2017-01-16] MEDS: Ondansetron 4 MG/2 ML VIAL IVP SCH ×2 (00:15→08:59)
[2017-01-16] MEDS: Ringers Solution, Lactated 1,000 ML IVC SCH (03:51)
[2017-01-16 04:02] LABS: Hematocrit 26.8 % (37.5-50.1); Hemoglobin 8.5 g/dL (12.9-16.9); Mean Corpuscular HGB Conc 31.7 g/dL (31.6-35.5); Mean Corpuscular Volume 91.5 fL (83.0-100.0); Mean Platelet Volume 8.6 fL (9.4-12.4); Platelet Count 304 K/mcL (140-400); Red Blood Count 2.93 M/mcL (4.19-5.50); Red Cell Distribution Width 13.4 % (11.5-14.5)
[2017-01-16 04:16] LABS: Albumin 2.3 g/dL (3.5-5.0); Calcium 8.1 mg/dL (8.6-10.8); Magnesium 1.4 mg/dL (1.6-2.6); Phosphorous 4.2 mg/dL (2.3-4.7); Potassium 3.7 mEq/L (3.5-4.5)
--- NOTE | 2017-01-16 08:49 | Nephrology Progress Note ---
Date of Encounter: 01/16/17 Time of Encounter: 08:47 - Assessment and Plan (1) APOORVA (acute kidney injury) Current Visit: No Status: Acute The patient has stage III chronic kidney disease with superimposed acute kidney injury in the setting of inoperable prostate cancer involving both ureteral orifices. She presented with worsening right hydronephrosis. He is now status post right percutaneous nephrostomy tube placement. His renal function is slowly improving. Urine output is excellent. He does not require dialysis. We will continue to monitor the patient while he is here in the hospital. (2) Prostate cancer Current Visit: No Status: Acute (3) Chronic kidney disease, stage III (moderate) Current Visit: No Status: Acute Subjective Principal diagnosis: f/u of acute on chronic renal failure Interval history: The patient has no new complaints. His renal function continues to slowly improve on a daily basis. Urine output is excellent. Objective - Vital Signs Vital signs: Vital Signs Temp Pulse Resp BP Pulse Ox 01/16/17 07:21 97.4 F L 65 17 146/77 94 01/16/17 03:56 98.0 F 66 16 107/54 90 01/15/17 23:54 98.0 F 65 16 132/76 93 01/15/17 20:07 98.1 F 66 16 126/83 93 01/15/17 16:49 98.3 F 68 14 123/66 96 01/15/17 13:30 98.3 F 67 16 128/71 91 Intake and Output 01/15/17 01/16/17 01/16/17 23:59 07:59 15:59 Intake Total 1000 / 1000 1000 / 1000 Output Total 1445 / 1445 250 / 250 Balance -445 / -445 750 / 750 Intake: IV Fluids 1000 / 1000 1000 / 1000 Lactated Ringers 1,000 ML @ 125 1000 / 1000 1000 / 1000 mls/hr IVC .Q8H [facility] Rx#: [id number] Output: Left Nephrostomy 570 / 570 Right Nephrostomy 875 / 875 250 / 250 Other: Weight 105.3 kg Blood Glucose* 273 151 Patient Weight 01/16/17 23:59 Weight 105.3 kg - General Appearance Exam: Patient is alert and oriented. He is in no acute distress. Lungs essentially clear to auscultation. Heart regular rate and rhythm. Abdomen is benign. There is no peripheral edema. There is a right percutaneous nephrostomy tube in place. - Lab 01/16/17 03:47 01/16/17 03:47 Most recent lab results ABG pH 7.41 pH Units (7.32-7.45) 01/12/17 18:30 ABG pCO2 32 mmHg (35-45) L 01/12/17 18:30 ABG pO2 82 mmHg (85-104) L 01/12/17 18:30 ABG HCO3 20 mEq/L (21-27) L 01/12/17 18:30 ABG O2 Saturation 96 % (95-98) 01/12/17 18:30 Calcium 8.1 mg/dL (8.6-10.8) L 01/16/17 03:47 Phosphorus 4.2 mg/dL (2.3-4.7) 01/16/17 03:47 Magnesium 1.4 mg/dL (1.6-2.6) L 01/16/17 03:47 Consult Discharge Plan - Plan Referrals: Saleem Ramirez DO [Primary Care Provider] - (web request sent on 03/01)
[2017-01-16] MEDS: Insulin LISPRO 300 UNITS/3 ML VIAL SQ SCH ×2 (08:58→11:41)
[2017-01-16] MEDS: Folic Acid 1 MG TABLET PO SCH (08:59)
[2017-01-16] MEDS: Diltiazem CD (24hr) 240 MG CAPSULE PO SCH (08:59)
--- NOTE | 2017-01-16 10:55 | Discharge Summary ---
<Yves Antonio - Last Filed: 01/16/17 13:24> Date of Encounter: 01/16/17 Time of Encounter: 08:30 - Discharge Diagnosis (1) Acute kidney failure Priority: Primary Status: Acute Comments: Follow-up with urology in the outpatient setting. Qualifiers: Acute renal failure type: unspecified Qualified Code(s): N17.9 - Acute kidney failure, unspecified (2) UTI (urinary tract infection) Priority: Secondary Status: Acute Qualifiers: Urinary tract infection type: acute cystitis Hematuria presence: without hematuria Qualified Code(s): N30.00 - Acute cystitis without hematuria (3) Prostate CA Priority: Secondary Status: Chronic (4) Diabetes mellitus Priority: Secondary Status: Chronic Qualifiers: Diabetes mellitus type: type 2 Diabetes mellitus complication status: with hyperglycemia Diabetes mellitus refinisher insulin use: with refinisher use Qualified Code(s): E11.65 - Type 2 diabetes mellitus with hyperglycemia; Z79.4 - bereavement counselor (current) use of insulin (5) Hypertension Priority: Secondary Status: Chronic Qualifiers: Hypertension type: essential hypertension Qualified Code(s): I10 - Essential (primary) hypertension (6) Anemia Priority: Secondary Status: Acute Qualifiers: Qualified Code(s): D64.9 - Anemia, unspecified (7) Metabolic acidosis Priority: Secondary Status: Acute - Discharge Medications Home Medications: Insulin DETEMIR [Levemir] 30 unit SQ HS 30 Days [id number] 01/19/16 [Rx] Sertraline [Zoloft] 25 mg PO DAILY 04/13/16 [History] Folic Acid 1 mg PO DAILY 11/17/16 [History] Insulin ASPART [Novolog Flexpen] 15 unit SQ TID 11/17/16 [History] Ondansetron HCl [Zofran] 4 mg PO Q8H PRN 11/17/16 [History] Diltiazem CD (24hr) [Cardizem CD] 240 mg PO DAILY 12/15/16 [History] Docusate [Colace] 100 mg PO DAILY PRN 01/12/17 [History] Omeprazole [PriLOSEC] 40 mg PO DAILY 01/12/17 [History] Allergies/Adverse Reactions: 3 Allergy/AdvReac Type Severity Reaction Status Date / Time No Known Allergies Allergy Verified 01/12/17 18:26 Date of admission: 01/12/17 18:32 Primary care physician: Saleem Ramirez DO Consults: 01/12/17 23:04 Consult to Nephrology [CONS] Routine Consulting Provider: [facility] Reason for Consult: ARF; prostate CA; kidney stones Call Completed: No Consult to Urology [CONS] Routine Consulting Provider: Sandee Bustamante Reason for Consult: obstructive uropathy; prostate CA; kidney stones Call Completed: Yes 01/13/17 07:42 Consult to Interventional Radiology [CONS] Routine Consulting Provider: Radiology Interventional [facility] Reason for Consult: Place right nephrostomy tube Call Completed: No Discharging clinician: Yves Antonio Anticipated date of discharge: 01/16/17 - Patient Status Disposition: Home, Self-Care Condition: Fair Overall status at discharge: patient is progressing back to baseline - Discharge Instructions Instructions: Acute Kidney Injury (DC), Nephrostomy Tube Care (DC), Nephrostomy Tube Care (GEN) Follow Up With: Urologneil Bustamante [Provider Group] (office will call you with an appointment date and time ) Saleem Ramirez DO [Primary Care Provider] - 01/19/17 1:00 pm () Hospital course: Patient is a 66-year-old male presented to the hospital per the recommendation of his urologist on 01/12/17. This patient's outpatient labs revealed significant elevation in his creatinine level at 6.15. He has received multiple stents by his urologist; they have failed. He was admitted for possible acute renal failure and possible nephrostomy tube placement. Upon admission, patient complained of suprapubic tenderness which was constant throughout his cancer. Patient follows oncologist Dr. Cuenca who has been treating his cancer with radiation. He has completed 39 radiation treatments. Patient did complain of some dysuria on presentation, but does make some urine. Upon admission, patient's BUN was 65. His blood pressure was elevated at 169/ 105. Patient's condition was most likely due to post obstructive nephropathy. EKG demonstrated incomplete bundle branch block. There was no need for emergent dialysis. CT scan of the abdomen and pelvis was performed. It demonstrated stable to slightly worse moderate to severe right-sided hydronephrosis. There was stable moderate left-sided hydronephrosis. It revealed a double-J ureteral stent in place. There were also pericystic inflammatory changes, as well as inflammatory changes extending up both ureters. These findings are possible concerns for ascending cystitis or UTI. These are also possibly the result of radiation. There was also a stable 10 mm nonobstructing right-sided renal calculus. Urinalysis revealed possible UTI. Patient was started on Rocephin. Rocephin was discontinued on 01/15/17. Renal ultrasound was performed on 12/14/16: Demonstrated the presence of moderate bilateral hydronephrosis, intrarenal calculi and left renal cyst. [facility] nephrology was consult. Patient was placed nothing by mouth for placement of a nephrostomy tube. Nephrostomy tube was placed without complication. After tubes placed, patient stated that his urethral pain had improved. Nephrostomy tube was draining well. No blood or purulent discharge was noted. During patient's stay in the hospital, his creatinine began to improve. On date of discharge, patient's creatinine is 4.08. Per the recommendation of urology, patient will follow up in the outpatient setting for further evaluation. Patient's baseline creatinine is 1.5-1.8. [place] creatinine for this gentleman at this point is less than 2. - Time Spent with Patient Total time spent providing and/or coordinating discharge services: Greater than 30 minutes (40 minutes) - Constitutional Vitals: Temp Pulse Resp BP Pulse Ox 97.4 F L 65 17 146/77 94 01/16/17 07:21 01/16/17 07:21 01/16/17 07:21 01/16/17 07:21 01/16/17 07:21 General appearance: Present: cooperative, A&O X 3, pleasant, no acute distress - Head Head exam: Present: atraumatic, normal inspection, normocephalic - Neck Neck exam general surgery: Present: supple, trachea midline. Absent: lymphadenopathy - Respiratory Respiratory exam: Present: CTAB. Absent: accessory muscle use, rales, rhonchi, wheezes - Cardiovascular Cardiovascular exam: Present: RRR, +S1, +S2. Absent: diastolic murmur, gallop, rubs, systolic murmur - Skin Skin exam: Present: dry, intact <Rigo Encinas - Last Filed: 01/16/17 14:07> Date of Encounter: 01/16/17 Date of admission: 01/12/17 18:32 Primary care physician: Saleem Ramirez DO Consults: 01/12/17 23:04 Consult to Nephrology [CONS] Routine Consulting Provider: [facility] Reason for Consult: ARF; prostate CA; kidney stones Call Completed: No Consult to Urology [CONS] Routine Consulting Provider: [facility] [place] Reason for Consult: obstructive uropathy; prostate CA; kidney stones Call Completed: Yes 01/13/17 07:42 Consult to Interventional Radiology [CONS] Routine Consulting Provider: Radiology Interventional [facility] Reason for Consult: Place right nephrostomy tube Call Completed: No Hospital course: Mr. Rivera is a 66 year old male - Time Spent with Patient Total time spent providing and/or coordinating discharge services: - Constitutional Vitals: Temp Pulse Resp BP Pulse Ox 98.4 F 68 17 132/76 92 01/16/17 11:01 01/16/17 11:01 01/16/17 11:01 01/16/17 11:01 01/16/17 11:01 - Attending Attestation I have independently seen and examined this patient with his at the bedside on 01/16/17 66-year-old male with medical history of prostate CA with indwelling L ureteral stent, diabetes mellitus, hypertension who was admitted and being managed for acute kidney injury on chronic kidney disease secondary to obstructive uropathy , bilateral hydronephrosis He has no new complains, he has made significant clinical improvement His Cr is slolwly improving. Physical examination vital signs are stable he is not pale he is anicteric his oral mucosa is moist. Chest examination is clear to auscultation bilaterally. Heart sounds S1 and S2 no murmurs. Abdomen is soft and non-tender no suprapubic tenderness. Back exam there is no CVA tenderness. Nephrostomy tube draining clear urine. He has no pedal edema. He has no skin rash. Stable for discharge home with appropriate Urology and Nephrology follow ups Replace Magnesium Rest as in resident physician's documentation
[2017-01-16 11:06] VITALS: BP 132/76
[2017-01-16] MEDS ORDERED: Magnesium Oxide 400 MG TABLET PO ONE (11:29)
== END 2017-01-16 13:50 | disposition home or self-care (01) | DRG 683 ==
LOC: EMEROO 17:20 → 2ANU 18:32
PROVIDERS: ADMIT Internal Medicine; ATTEND Internal Medicine

== ENCOUNTER 2017-01-19 20:59 | Inpatient (IN) ==
[2017-01-19] MEDS ORDERED: cefTRIAXone 2,000 MG in Water for inj. (sterile) 20 ML IVP ONE (23:00)
[2017-01-19 23:31] LABS: Bilirubin,Urine Negative (Negative); Blood,Urine Large (Negative); Clarity,Urine Turbid (Clear); Color,Urine Yellow (Yellow); Glucose,Urine (UA) 500 mg/dL (Normal); Ketones,Urine Negative (Negative); Leukocyte Esterase,Urine Large (Negative); Nitrite,Urine Negative (Negative); Protein,Urine 100 mg/dL (Neg-Trace); Specific Gravity,Urine 1.015 (1.010-1.025); Urobilinogen,Urine Normal (Normal)
[2017-01-19 23:33] LABS: Hyaline Casts,Urine None Seen per lpf (None-Few); RBC,Urine TNTC per hpf (0-3); Squamous Epithelial Cell,Urine Few per lpf (None-Few); WBC,Urine TNTC per hpf (0-3)
[2017-01-19 23:43] LABS: Bacteria,Urine Moderate per hpf (None-Few); Yeast,Urine Many per hpf (None Seen)
--- NOTE | 2017-01-19 23:43 | Emergency Department Note ---
START Narrative - START START: I examined this patient and my medical decision-making was reviewed with the Resident Physician. I agree with the documented findings, disposition and treatment plan as described except to the extent set forth below. Patient has history of renal failure, elevated creatinine, nephrostomy tubes. CT scan shows no evidence of acute obstructive findings however does show cystitis. Plan obtain urinalysis, start empiric antibiotic treatment. Concern for decreased urinary output from left nephrostomy tube. Plan to admit for further evaluation.
--- NOTE | 2017-01-20 00:03 | Emergency Department Note ---
Disposition Clinical Impression: Pyelonephritis Disposition: Admitted As Inpatient Condition: Good Referrals: Saleem Ramirez DO [Primary Care Provider] - Time of Disposition: 00:05 General Adult HPI - General Chief complaint: ED Abdominal Pain Stated complaint: left flank pain had nephrostomy tube put in Time Seen by Provider: 01/19/17 21:11 Source: patient Mode of arrival: ambulatory Limitations: no limitations Nursing Notes Reviewed: Yes Vital Signs Reviewed: Yes - History of Present Illness HPI Narrative: 66-year-old male presented to the emergency Department chief complaint of urinary retention and flank pain. Patient was seen approximately one week ago and admitted for nephrostomy placement. Patient states today he started having bilateral flank pain and has not had any urinary output. Nephrostomy bag shows clear urine with no blood. Patient was seen today at his primary care physician a CBC and BMP was completed. Patient is concerned because the symptoms he is having today were similar to the last time he was admitted. Patient denies any fevers at home. He denies any chest pain or shortness of breath. Patient does have a significant past medical history of prostate cancer which he received radiation for. His last radiation treatment was in October. Pain Scale: 5 - Related Data Home Medications Medication Instructions Recorded Confirmed Sertraline [Zoloft] 25 mg PO DAILY 04/13/16 01/12/17 Folic Acid 1 mg PO DAILY 11/17/16 01/12/17 Insulin ASPART [Novolog Flexpen] 15 unit SQ TID 11/17/16 01/12/17 Ondansetron HCl [Zofran] 4 mg PO Q8H PRN 11/17/16 01/12/17 Diltiazem CD (24hr) [Cardizem CD] 240 mg PO DAILY 12/15/16 01/12/17 Docusate [Colace] 100 mg PO DAILY PRN 01/12/17 01/12/17 Omeprazole [PriLOSEC] 40 mg PO DAILY 01/12/17 01/12/17 Previous Rx's Medication Instructions Recorded Insulin DETEMIR [Levemir] 30 unit SQ HS 30 Days [id number] 01/19/16 Allergies Allergy/AdvReac Type Severity Reaction Status Date / Time No Known Allergies Allergy Verified 01/12/17 18:26 All systems ED: reviewed and negative except as stated. Constitutional: Denies: fever, chills Eyes: Reports: as per HPI ENT ED: Reports: as per HPI Cardiovascular: Denies: chest pain, palpitations Respiratory: Denies: cough, dyspnea, wheezes Gastrointestinal: Denies: nausea, vomiting Genitourinary: Reports: as per HPI Musculoskeletal: Reports: as per HPI Integumentary: Denies: rash, abrasion Neurological: Reports: as per HPI Psychiatric: Reports: as per HPI Endocrine: Reports: as per HPI Hematological/Lymphatic: Reports: as per HPI Allergic/Immunologic: Reports: as per HPI Past Medical History - Past Medical History Attestation: Yes The following information was validated with the patient. Medical history: Reports: cancer, diabetes, hyperlipidemia, hypertension Surgical history: Reports: orthopedic, other, ureteral stent Psychiatric history: Reports: no psych history - Social History Smoking Status: Never smoker Smokeless Tobacco Status: No Alcohol use: Reports: none Drug use: Reports: none Physical Exam - General Limitations: no limitations General appearance: alert, in no apparent distress - Head Head exam: atraumatic, normocephalic, normal inspection - Eye Eye exam: Present: normal appearance. Absent: scleral icterus, conjunctival injection - Chest Chest inspection: Present: normal inspection, symmetric chest wall rise. Absent : tenderness, rash - Respiratory Respiratory exam: Present: normal lung sounds bilaterally. Absent: respiratory distress, wheezes - Cardiovascular Cardiovascular exam: Present: regular rate, normal rhythm, normal heart sounds - Abdominal Exam Abdominal exam: Present: soft, Non-Tender. Absent: distention, guarding, rebound - Extremities Exam Extremities exam: Present: normal inspection, full ROM - Back Exam Back exam: Present: CVA tenderness (R), CVA tenderness (L) - Neurological Exam Neurological exam: Present: alert, oriented X3 - Psychiatric Psychiatric exam: Present: normal affect, normal mood - Skin Skin exam: Present: warm, intact Course Course Narrative: 66-year-old male presenting to the emergency parents complaining of flank pain. Patient had recent nephrostomy due to urinary retention. He is concerned these are similar symptoms. We will complete a CT of the abdomen and pelvis along with a urinalysis. Disposition pending results. He is alert and oriented 3 in the room and stable vital signs at this time. He agrees with this plan. - Reevaluation(s) Reevaluation #1: CT of the abdomen and pelvis within normal limits. Urinalysis shows urinary tract infection. This area tract infection along with the flank pain we are concerned for pyelonephritis. Although the patient does not have a white count of fever at this time. We will start ceftriaxone on the patient and admit him at this time. He is alert and oriented 3 in the room stable vital signs at this time. He agrees with this plan. I spoke with hospitalist on-call Dr. Hamlin who agrees to accept the patient. Vital Signs Temperature 98 F 01/19/17 21:01 Pulse Rate 85 01/19/17 21:01 Respiratory Rate 18 01/19/17 21:01 Blood Pressure 164/93 01/19/17 21:01 O2 Sat by Pulse Oximetry 94 01/19/17 21:01 Temperature 98 F 01/19/17 21:01 Pulse Rate 70 01/19/17 23:09 Respiratory Rate 16 01/19/17 23:09 Blood Pressure 145/77 01/19/17 23:09 O2 Sat by Pulse Oximetry 95 01/19/17 23:09 Oxygen Delivery Oxygen Delivery Room Air Medical Decision Making - Lab Data Lab Results 01/19/17 Range/Units 23:17 Urine Color Yellow (Yellow) Urine Clarity Turbid A (Clear) Urine pH 7.0 (5.0-8.0) pH Units Ur Specific [place] 1.015 (1.010-1.025) Urine Protein 100 H (Neg-Trace) mg/dL Urine Glucose (UA) 500 H (Normal) mg/dL Urine Ketones Negative (Negative) mg/dL Urine Blood Large H (Negative) Urine Nitrite Negative (Negative) Urine Bilirubin Negative (Negative) Urine Urobilinogen Normal (Normal) mg/dL Ur Leukocyte Esterase Large H (Negative) Urine Microscopic RBC TNTC H (0-3) per hpf Urine Microscopic WBC TNTC H (0-3) per hpf Ur Squamous Epith Cells Few (None-Few) per lpf Urine Bacteria Moderate H (None-Few) per hpf Hyaline Casts None Seen (None-Few) per lpf Urine Yeast Many H (None Seen) per hpf Ur Culture Indicated? YES A (NO)
[2017-01-20] MEDS ORDERED: *HR* Dextrose 50 % in Water (Syg) 50 ML SYRINGE IVP PRN (01:16)
[2017-01-20] MEDS ORDERED: Dextrose Gel 15 GM/37.5 ML TUBE PO PRN ×2 (01:16)
[2017-01-20] MEDS ORDERED: D5% in Water 1,000 ML IVC PRN (01:16)
[2017-01-20] MEDS ORDERED: Naloxone 0.4 MG/ML INJ IVP PRN (01:17)
[2017-01-20] MEDS ORDERED: Mag Hydrox/Al Hydrox/Simeth 30 ML UDC PO PRN (01:17)
[2017-01-20] MEDS ORDERED: Ondansetron 4 MG/2 ML VIAL IVP PRN (01:17)
[2017-01-20] MEDS ORDERED: Acetaminophen 325 MG TABLET PO PRN (01:17)
[2017-01-20] MEDS ORDERED: *HR* Morphine 2 MG/ML SYRINGE IVP PRN (01:17)
[2017-01-20] MEDS ORDERED: Vancomycin 1,000 MG in D5% in Water 250 ML IVPB STA (01:21)
[2017-01-20] MEDS ORDERED: Insulin DETEMIR 100 UNIT/ML X5UNITS SQ SCH (01:30)
[2017-01-20] MEDS ORDERED: 0.9 % Sodium Chloride 1,000 ML IVC SCH (01:30)
--- NOTE | 2017-01-20 01:35 | Internal Med History&Physical ---
Date of Encounter: 01/20/17 Time of Encounter: 01:31 Assessment and Plan (1) Pyelonephritis Current visit: Yes Status: Acute As noted above patient has recently been discharged after he was noted to have bilateral hydronephrosis and had ureteral stents bilaterally as well as a right nephrostomy tube. CT abdomen confirms both the stents are patent and no new hydronephrosis and apparently right nephrostomy tube is also working. I reviewed his urine cultures and it appears that in recent past he had enterococcus staph epi and fungus. Enterococcus and staph epi sensitive to vancomycin. In today's UA also showed the numerous leukocytes and fungus. Considering that he has a nephrostomy tube has been way should go ahead and treated empirically with vancomycin and Diflucan. I have asked pharmacy to dose his vancomycin and we need to follow his renal and liver function regularly. ER has already informed urology. (2) Acute renal failure superimposed on chronic kidney disease Current visit: Yes Status: Acute Creatinine is elevated but not too far from his previous levels. No hydronephrosis noted on CT abdomen. Follow renal function closely as we have given him vancomycin. 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 Rivera is a 66 year old male past medical history significant for prostate cancer status post radiation treatment, diabetes hypertension dyslipidemia CKD and an extensive urological history. Patient was recently released from hospital. He has been having obstructive uropathy secondary to renal stone and had bilateral ureteral stents as well as right nephrostomy tube when he was discharged home last week. However patient feels that his pain has worsened and he is very concerned if he is developing hydronephrosis on the left. A CT abdomen and pelvis done in ER showed that bilateral hydro-nephrosis has resolved stents are in place and apparently right nephrostomy tube is working. Significant finding was widely spread fat stranding spreading from urinary bladder with thickened kathleen to the ureter and the perinephric fat. Also noted pericapsular fat stranding around the prostate which has radiation seeds. Patient urine is clear and there is no blood in it. However he describes generalized abdominal pain and bilateral flank pain though no fever or chills diaphoresis syncope or dizziness. No nausea vomiting diarrhea dysuria urgency frequency hematuria hematochezia or hematemesis melena headache neck pain. Past Med Surg Social Fam HX - Past Medical History Medical history: cancer, diabetes, hyperlipidemia, hypertension Psychiatric history: no psych history - Past Surgical History Surgical History: orthopedic, other, ureteral stent - Social History Smoking Status: Never smoker Smokeless Tobacco Status: No Alcohol use: none Drug use: none - Family History Father Living Status: Hx Family Cardiac Disorders: No Hx Family Respiratory Disorders: No Hx Family Cancer: Yes (colon cancer) Hx Family GI Disorders: No Hx Family Endocrine Disorder: Yes (Diabetes) Hx Family Neuromuscular Disorders: No Hx Family Neurologic Disorders: No Hx Family HEENT Disorders: No Hx Family Autoimmune Disorders: No Brother Living Status: Still Living Hx Family Cancer: Yes (colon cancer) Internal Medicine - H&P: Meds Insulin DETEMIR [Levemir] 30 unit SQ HS 30 Days [id number] 01/19/16 [Rx] Sertraline [Zoloft] 25 mg PO DAILY 04/13/16 [History] Folic Acid 1 mg PO DAILY 11/17/16 [History] Insulin ASPART [Novolog Flexpen] 15 unit SQ TID 11/17/16 [History] Ondansetron HCl [Zofran] 4 mg PO Q8H PRN 11/17/16 [History] Diltiazem CD (24hr) [Cardizem CD] 240 mg PO DAILY 12/15/16 [History] Docusate [Colace] 100 mg PO DAILY PRN 01/12/17 [History] Omeprazole [PriLOSEC] 40 mg PO DAILY 01/12/17 [History] 3 Allergy/AdvReac Type Severity Reaction Status Date / Time No Known Allergies Allergy Verified 01/12/17 18:26 All Systems PM: A 10-system review of systems was performed and is negative for pertinent findings except as documented above in the HPI. - Constitutional Constitutional: no chills, no fever(s), no night sweats - EENT Eyes: no change in vision, no discharge, no pain, no photophobia Ears: no ear discharge, no ear pain, no tinnitus Nose, mouth and throat: no dysphagia, no nasal discharge, no neck pain, no sore throat - Cardiovascular Cardiovascular ROS IM: no chest pain, no diaphoresis, no dyspnea, no lightheadedness, no palpitations, no syncope - Respiratory Respiratory: no cough, no dyspnea, no wheezing, no excessive phlegm production - Gastrointestinal Gastrointestinal: abdominal pain, no diarrhea, no hematemesis, no hematochezia, no melena, no nausea, no vomiting - Musculoskeletal Musculoskeletal ROS IM: no numbness, no tingling - Integumentary Integumentary IM: no rash, no unusual bruising - Neurological Neurological ROS: no confusion, no convulsions, no focal weakness, no numbness, no tingling, no tremor(s) - Hematologic/Lymphatic Hematologic/Lymphatic: no easy bruising - Constitutional Vitals: Temp Pulse Resp BP Pulse Ox 98.0 F 72 16 159/85 94 01/20/17 00:43 01/20/17 00:43 01/20/17 00:43 01/20/17 00:43 01/20/17 01:06 - Head Head exam: Present: atraumatic, normocephalic - Eye Eye exam: Present: PERRL, conjuntiva pink, sclera anicteric Pupils: Present: PERRL - Neck Neck exam general surgery: Present: supple, trachea midline. Absent: lymphadenopathy - Respiratory Respiratory exam: Present: CTAB. Absent: accessory muscle use, rales, rhonchi, wheezes - Cardiovascular Cardiovascular exam: Present: RRR, +S1, +S2. Absent: diastolic murmur, gallop, rubs, systolic murmur - GI/Abdominal GI/Abdominal exam: Present: normal bowel sounds, soft, tenderness, no peritoneal signs. Absent: distended Additional comments: Bilateral CVA tenderness more on the right, generalized abdominal tenderness without any rebound tenderness or organomegaly. Sounds slightly diminished - Extremities Exam Extremities exam: Present: warm, radial pulses palpable and symmetrical. Absent : calf tenderness, cyanotic, pedal edema - Neurological Exam Neurological exam: Present: CN II-XII intact, oriented X3, no focal deficits. Absent: pronater drift, facial droop, speech deficit - Skin Skin exam: Present: dry, intact
[2017-01-20] MEDS: Insulin LISPRO 300 UNITS/3 ML VIAL SQ SCH ×2 (01:58→09:03)
[2017-01-20] MEDS ORDERED: cefTRIAXone 2,000 MG in Water for inj. (sterile) 20 ML IVP ONE (02:00)
[2017-01-20] MEDS ORDERED: Vancomycin 1,500 MG in D5% in Water 250 ML IVPB SCH (02:00)
[2017-01-20] MEDS ORDERED: Tigecycline 100 MG in 0.9 % Sodium Chloride Mini Bag 100 ML IVPB STA (02:11)
[2017-01-20] MEDS ORDERED: Tigecycline 100 MG in 0.9 % Sodium Chloride 100 ML IVPB STA (02:22)
[2017-01-20 02:28] LABS: Mean Corpuscular HGB Conc 31.7 g/dL (31.6-35.5); Mean Corpuscular Hemoglobin 29.4 pg (28.0-33.3); Mean Corpuscular Volume 92.7 fL (83.0-100.0); Mean Platelet Volume 8.5 fL (9.4-12.4); Platelet Count 308 K/mcL (140-400); Red Blood Count 3.13 M/mcL (4.19-5.50); Red Cell Distribution Width 13.9 % (11.5-14.5)
[2017-01-20 02:31] LABS: Hemoglobin 9.2 g/dL (12.9-16.9)
[2017-01-20 02:43] LABS: Alanine Aminotransferase 11 Units/L (0-55); Albumin/Globulin Ratio 0.6 (1.1-2.2); Alkaline Phosphatase 66 Units/L (38-126); Aspartate Amino Transferase 8 Units/L (5-34); BUN/Creatinine Ratio 10 (6-26); Blood Urea Nitrogen 30 mg/dL (8-26); Carbon Dioxide 16 mEq/L (19-29); Chloride 107 mEq/L (98-109); Glucose 227 mg/dL (70-99); Osmolality,Calculated 299 (280-300); Potassium 3.5 mEq/L (3.5-4.5); Sodium 138 mEq/L (136-145); Total Protein 6.5 g/dL (6.0-8.3); eGFR For African Americans 27 (> 60); eGFR For Non-African Americans 22 (> 60)
[2017-01-20 02:44] LABS: Albumin 2.5 g/dL (3.5-5.0); Bilirubin,Total < 0.2 mg/dL (0.2-1.2); Calcium 8.1 mg/dL (8.6-10.8)
[2017-01-20] MEDS ORDERED: *HR* Heparin 5,000 UNIT/ML VIAL SQ SCH (06:00)
[2017-01-20] MEDS ORDERED: Folic Acid 1 MG TABLET PO SCH (09:00)
[2017-01-20] MEDS ORDERED: Fluconazole 200 MG/100 ML 200 MG/100 ML BAG IVPB SCH (09:00)
[2017-01-20] MEDS ORDERED: Diltiazem CD (24hr) 240 MG CAPSULE PO SCH (09:00)
--- NOTE | 2017-01-20 09:11 | Urology - Consult Note ---
Date of Encounter: 01/20/17 Time of Encounter: 09:09 - Assessment and Plan (1) Complicated UTI (urinary tract infection) Current Visit: No Status: Acute Assessment and plan: Patient does not have pyelonephritis. The stranding around his urinary tract is expected with his history of ureteral stents, nephrostomy tube, radiation. He has no fever or elevated white cell count. Cystoscopy does not have any flank discomfort. When asked what was hurting he pointed to his lower back. I suspect that his back discomfort is from immobility and spending a majority of his time in bed or in a chair. I recommend aggressive physical therapy. I personally reviewed the CT scan and did not see any surgical issues. The stents are in good position and draining well. His renal function has actually improved. No aggressive urologic intervention required at this time. I discussed the case with Dr. Ibarra. He is waning on the metal coiled stents to arrive prior to scheduling procedure to place them. Urine cultures were taken but the patient is colonized and will likely be positive but these may not be the contributing factor to his recent illness. Further antibiotic use without obvious infection could promote resistance. Infectious disease recommendations may be beneficial. Urology CN:HPI Consult date: 01/20/17 History of present illness: Patient well-known to the urology service. History of prostate cancer with bilateral ureteral obstruction. Has had significant issues with acute renal failure, infection, anemia, back pain. Patient has bilateral ureteral stents in place. He has a right nephrostomy tube in place. The plan with Dr. Ibarra is to convert both ureteral stents to metal coiled stents to better maintain patency and eventually remove the nephrostomy tube. Patient was admitted with low urine output from his penis and lower back pain. No fever. States he is fatigued. . Past Med Surg Social Fam HX - Past Medical History Medical history: cancer, diabetes, hyperlipidemia, hypertension Psychiatric history: no psych history - Past Surgical History Surgical History: orthopedic, other, ureteral stent - Social History Smoking Status: Never smoker Smokeless Tobacco Status: No Alcohol use: none Drug use: none - Family History Father Living Status: Hx Family Cardiac Disorders: No Hx Family Respiratory Disorders: No Hx Family Cancer: Yes (colon cancer) Hx Family GI Disorders: No Hx Family Endocrine Disorder: Yes (Diabetes) Hx Family Neuromuscular Disorders: No Hx Family Neurologic Disorders: No Hx Family HEENT Disorders: No Hx Family Autoimmune Disorders: No Brother Living Status: Still Living Hx Family Cancer: Yes (colon cancer) Medications and Allergies Insulin DETEMIR [Levemir] 30 unit SQ HS 30 Days [id number] 01/19/16 [Rx] Sertraline [Zoloft] 25 mg PO DAILY 04/13/16 [History] Folic Acid 1 mg PO DAILY 11/17/16 [History] Insulin ASPART [Novolog Flexpen] 15 unit SQ TID 11/17/16 [History] Ondansetron HCl [Zofran] 4 mg PO Q8H PRN 11/17/16 [History] Diltiazem CD (24hr) [Cardizem CD] 240 mg PO DAILY 12/15/16 [History] Docusate [Colace] 100 mg PO DAILY PRN 01/12/17 [History] Omeprazole [PriLOSEC] 40 mg PO DAILY 01/12/17 [History] Aspirin [Lo-Dose Aspirin EC] 81 mg PO DAILY 01/20/17 [History] 3 Allergy/AdvReac Type Severity Reaction Status Date / Time No Known Allergies Allergy Verified 01/12/17 18:26 Review of Systems - Constitutional fatigue, no fever(s) - EENT Nose, mouth and throat: no dizziness - Cardiovascular no chest pain - Gastrointestinal abdominal pain - Genitourinary no hematuria - Musculoskeletal back pain - Integumentary no erythema - Neurological no confusion - Psychiatric no anxiety - Hematologic/Lymphatic no easy bleeding - Allergic/Immunologic no throat swelling Exam Initial Vital Signs Temp Pulse Resp BP Pulse Ox 98 F 85 18 164/93 94 01/19/17 21:01 01/19/17 21:01 01/19/17 21:01 01/19/17 21:01 01/19/17 21:01 - General physical appearance Present: well developed, no distress - Eyes Present: PERRL - ENT Present: normal nares - Neck Present: no masses - Respiratory Present: normal respiratory effort - Cardiovascular Cardiovascular exam IM: RRR - Abdomen Abdomen: Present: soft. Absent: suprapubic tenderness - Integumentary Absent: no rash - Neurologic Absent: disoriented, confused - Additional Findings nephrostomy tube site is not infected. no major irritation. urine clear. Urology Results - Labs 01/20/17 02:20 01/20/17 02:20 Abnormal lab results RBC 3.13 M/mcL (4.19-5.50) L 01/20/17 02:20 Hgb 9.2 g/dL (12.9-16.9) L D 01/20/17 02:20 Hct 29.0 % (37.5-50.1) L 01/20/17 02:20 MPV 8.5 fL (9.4-12.4) L 01/20/17 02:20 Carbon Dioxide 16 mEq/L (19-29) L 01/20/17 02:20 BUN 30 mg/dL (8-26) H 01/20/17 02:20 Creatinine 2.87 mg/dL (0.72-1.25) H 01/20/17 02:20 Est GFR ( Amer) 27 (> 60) L 01/20/17 02:20 Est GFR (Non-Af Amer) 22 (> 60) L 01/20/17 02:20 Glucose 227 mg/dL (70-99) H 01/20/17 02:20 POC Glucose 202 (58-89) H 01/20/17 01:41 Calcium 8.1 mg/dL (8.6-10.8) L D 01/20/17 02:20 Total Bilirubin < 0.2 mg/dL (0.2-1.2) L 01/20/17 02:20 Albumin 2.5 g/dL (3.5-5.0) L D 01/20/17 02:20 Globulin 4.0 g/dL (2.4-3.5) H 01/20/17 02:20 Albumin/Globulin Ratio 0.6 (1.1-2.2) L 01/20/17 02:20 Urine Clarity Turbid (Clear) A 01/19/17 23:17 Urine Protein 100 mg/dL (Neg-Trace) H 01/19/17 23:17 Urine Glucose (UA) 500 mg/dL (Normal) H 01/19/17 23:17 Urine Blood Large (Negative) H 01/19/17 23:17 Ur Leukocyte Esterase Large (Negative) H 01/19/17 23:17 Urine Microscopic RBC TNTC per hpf (0-3) H 01/19/17 23:17 Urine Microscopic WBC TNTC per hpf (0-3) H 01/19/17 23:17 Urine Bacteria Moderate per hpf (None-Few) H 01/19/17 23:17 Urine Yeast Many per hpf (None Seen) H 01/19/17 23:17 Ur Culture Indicated? YES (NO) A 01/19/17 23:17 All other labs normal. Consult Discharge Plan - Plan Referrals: Saleem Ramirez, [Primary Care Provider] -
[2017-01-20] MEDS ORDERED: Tigecycline 50 MG in 0.9 % Sodium Chloride Mini Bag 100 ML IVPB SCH (11:00)
--- NOTE | 2017-01-20 11:58 | Internal Med Progress Note ---
Date of Encounter: 01/20/17 Time of Encounter: 09:00 - Assessment and plan (1) Prostate CA Current Visit: No Status: Chronic Assessment and plan: S/P radiation therapy. S/p right nephrostomy and left side ureteral stenting. Urology on case. (2) Hypertension Current Visit: No Status: Chronic Assessment and plan: Continue home medications Qualifiers: Hypertension type: essential hypertension Qualified Code(s): I10 - Essential (primary) hypertension (3) Diabetes mellitus Current Visit: No Status: Chronic Assessment and plan: Continue basal and sliding scale insulin Qualifiers: Diabetes mellitus type: type 2 Diabetes mellitus complication status: with kidney complications Diabetes mellitus complication detail: with chronic kidney disease Diabetes mellitus buttermaker helper insulin use: with buttermaker helper use Chronic kidney disease stage: stage 3 (moderate) Qualified Code(s): E11.22 - Type 2 diabetes mellitus with diabetic chronic kidney disease; N18.3 - Chronic kidney disease, stage 3 (moderate); N18.3 - Chronic kidney disease, stage 3 ( moderate); Z79.4 - intermediate manager (current) use of insulin; Z79.4 - intermediate manager ( current) use of insulin; Z79.4 - retirement (current) use of insulin; Z79.4 - retirement (current) use of insulin (4) Complicated UTI (urinary tract infection) Current Visit: No Status: Acute Assessment and plan: Patient has history of urinary intention due to prostate cancer. S/P nephrostomy and stenting. Has chronic dysuria probably due to radiation therapy. - Urology consult appreciated. Agree with that low probability of polynephritis - We will continue current treatment for UTI and discontinue antibiotic if blood culture negative. - We will follow urine culture results but probably not be very valuable because of colonization. (5) DVT prophylaxis Current Visit: No Status: Acute Assessment and plan: Heparin subcutaneously (6) Chronic kidney disease, stage III (moderate) Current Visit: No Status: Acute Assessment and plan: Renal function is about at baseline - Time Spent With Patient 25 - 35 minutes - Subjective Interval history: I have seen and examined the patient. Still complaining of back pain bilaterally. Patient said he has dysuria and discomfort on urination but it is chronic. No fever, vital signs stable. Urology consult appreciated. I agree that pyelonephritis is less likely as patient has no fever or white count. It is better to have infection disease consult to adjust antibiotics but unfortunately we do not have ID consult available until 01/28. Family understand that overuse of abx may cause resistance but still concern about infection, will cont current treatment and if blood cx negative, will d/c abx. Family agree with the plan. Will consult PT/OT. - Constitutional Vitals: Temp Pulse Resp BP Pulse Ox 98.4 F 87 14 161/88 98 01/20/17 11:37 01/20/17 11:37 01/20/17 11:37 01/20/17 11:37 01/20/17 11:37 General appearance: Present: A&O X 3, no acute distress, answers questions appropriately - Head Head exam: Present: atraumatic, normocephalic - Eye Eye exam: Present: PERRL, conjuntiva pink, sclera anicteric Pupils: Present: PERRL - Neck Neck exam general surgery: Present: supple, trachea midline. Absent: lymphadenopathy - Respiratory Respiratory exam: Present: CTAB. Absent: accessory muscle use, rales, rhonchi, wheezes - Cardiovascular Cardiovascular exam: Present: RRR, +S1, +S2. Absent: diastolic murmur, gallop, rubs, systolic murmur - GI/Abdominal GI/Abdominal exam: Present: normal bowel sounds, soft, no peritoneal signs. Absent: distended, tenderness Additional comments: Right nephrostomy tube in place, urine is clean. - Extremities Exam Extremities exam: Present: warm, radial pulses palpable and symmetrical. Absent : calf tenderness, cyanotic, pedal edema - Neurological Exam Neurological exam: Present: CN II-XII intact, oriented X3, no focal deficits. Absent: pronater drift, facial droop, speech deficit - Skin Skin exam: Present: dry, intact Internal Medicine: Result - Labs CBC & Chem 7: 01/20/17 02:20 01/20/17 02:20 Consult Discharge Plan - Plan Referrals: Saleem Ramirez DO [Primary Care Provider] -
--- NOTE | 2017-01-20 13:49 | Discharge Summary ---
Date of Encounter: 01/20/17 Time of Encounter: 13:00 - Discharge Diagnosis (1) Prostate CA Priority: Secondary Status: Chronic (2) Hypertension Priority: Secondary Status: Chronic Qualifiers: Hypertension type: essential hypertension Qualified Code(s): I10 - Essential (primary) hypertension (3) Diabetes mellitus Priority: Secondary Status: Chronic Qualifiers: Diabetes mellitus type: type 2 Diabetes mellitus complication status: with kidney complications Diabetes mellitus complication detail: with chronic kidney disease Diabetes mellitus assisted insulin use: with intermission coordinator use Chronic kidney disease stage: stage 3 (moderate) Qualified Code(s): E11.22 - Type 2 diabetes mellitus with diabetic chronic kidney disease; N18.3 - Chronic kidney disease, stage 3 (moderate); N18.3 - Chronic kidney disease, stage 3 ( moderate); Z79.4 - penitentiary (current) use of insulin; Z79.4 - penitentiary ( current) use of insulin; Z79.4 - penitentiary (current) use of insulin; Z79.4 - terminal clerk (current) use of insulin (4) Complicated UTI (urinary tract infection) Priority: Primary Status: Acute (5) DVT prophylaxis Priority: Secondary Status: Acute (6) Chronic kidney disease, stage III (moderate) Priority: Secondary Status: Acute - Discharge Medications Home Medications: Insulin DETEMIR [Levemir] 30 unit SQ HS 30 Days [id number] 01/19/16 [Rx] Sertraline [Zoloft] 25 mg PO DAILY 04/13/16 [History] Folic Acid 1 mg PO DAILY 11/17/16 [History] Insulin ASPART [Novolog Flexpen] 15 unit SQ TID 11/17/16 [History] Ondansetron HCl [Zofran] 4 mg PO Q8H PRN 11/17/16 [History] Diltiazem CD (24hr) [Cardizem CD] 240 mg PO DAILY 12/15/16 [History] Docusate [Colace] 100 mg PO DAILY PRN 01/12/17 [History] Omeprazole [PriLOSEC] 40 mg PO DAILY 01/12/17 [History] Aspirin [Lo-Dose Aspirin EC] 81 mg PO DAILY 01/20/17 [History] Allergies/Adverse Reactions: 3 Allergy/AdvReac Type Severity Reaction Status Date / Time No Known Allergies Allergy Verified 01/12/17 18:26 - Notes to Outpatient Provider 1. Please follow-up blood culture and urine culture result as outpatient on urology office visit on Monday. Date of admission: 01/20/17 05:13 Primary care physician: Saleem Ramirez DO Consults: 01/20/17 12:08 Consult to Occupational Therapy [CONS] Routine Comment: Evaluate, develop and implement POC Reason for Consult: Weakness, back pain. Consult to Physical Therapy [CONS] Routine Comment: Evaluate, develop and implement POC Reason for Consult: Weakness, back pain Discharging clinician: Danielle Hernandez Anticipated date of discharge: 01/20/17 - Patient Status Disposition: Home, Self-Care Condition: Good Functional capacity at discharge: independent ambulation Overall status at discharge: patient is progressing back to baseline - Discharge Instructions Follow Up With: Saleem Ramirez DO [Primary Care Provider] - - Diet and Activity Activity: increase activity as tolerated Diet: diabetic diet, low fat, low cholesterol, low salt diet Hospital course: Mr. Rivera is a 66 year old male admitted for suspected urinary tract obstruction. CT abdominal in ER shows no hydronephrosis bilaterally. Patient initially was treated with antibiotic for UTI. Urology consult saw pt, and pt has no signs of pyelonephritis. Further discussed with family and patient, together with pharmacist, they were convinced that we will hold antibiotics at this point as patient has no fever or leukocytosis. Patient will follow-up with urology on Monday for urine and blood culture results, if indicated, may restart antibiotics. Patient and family verbalized understanding and agreement. Patient has no further complaint except mild low back pain. Patient and the family want to go home and to pursue PT as outpatient. We will discharge pt home and he will follow up with urology Dr. Ibarra on Monday as outpatient. - Time Spent with Patient Total time spent providing and/or coordinating discharge services: 25min Less than 30 minutes - Constitutional Vitals: Temp Pulse Resp BP Pulse Ox 98.4 F 87 14 161/88 98 01/20/17 11:37 01/20/17 11:37 01/20/17 11:37 01/20/17 11:37 01/20/17 11:37 General appearance: Present: A&O X 3, no acute distress, answers questions appropriately - Head Head exam: Present: atraumatic, normocephalic - Eye Eye exam: Present: PERRL, conjuntiva pink, sclera anicteric Pupils: Present: PERRL - Neck Neck exam general surgery: Present: supple, trachea midline. Absent: lymphadenopathy - Respiratory Respiratory exam: Present: CTAB. Absent: accessory muscle use, rales, rhonchi, wheezes - Cardiovascular Cardiovascular exam: Present: RRR, +S1, +S2. Absent: diastolic murmur, gallop, rubs, systolic murmur - GI/Abdominal GI/Abdominal exam: Present: normal bowel sounds, soft, no peritoneal signs. Absent: distended, tenderness Additional comments: Right-sided nephrostomy tube in place, urine is clean - Extremities Exam Extremities exam: Present: warm, radial pulses palpable and symmetrical. Absent : calf tenderness, cyanotic, pedal edema - Neurological Exam Neurological exam: Present: CN II-XII intact, oriented X3, no focal deficits. Absent: pronater drift, facial droop, speech deficit - Skin Skin exam: Present: dry, intact
[2017-01-20 15:01] VITALS: BP 129/65
[2017-01-20] MEDS ORDERED: Insulin LISPRO 300 UNITS/3 ML VIAL SQ SCH (21:00)
[2017-01-21] MEDS ORDERED: Aspirin Enteric Coated 81 MG Tablet PO SCH (09:00)
--- NOTE | 2017-02-09 22:10 | Event Note ---
Date of Encounter: 02/09/17 Time of Encounter: 12:00 This is not evidence of patient encounter. This chart was reviewed for documentation purposes at the request of the medical records department. Final discharge diagnosis: Acute cystitis with hematuria
== END 2017-01-20 15:16 | disposition home or self-care (01) | DRG 690 ==
LOC: EMEROO 20:59 → 3ANU 20:59
PROVIDERS: ADMIT Internal Medicine; ATTEND Internal Medicine

== ENCOUNTER 2017-03-19 09:58 | Inpatient (IN) ==
[2017-03-19] MEDS ORDERED: Ipratropium/Albuterol Neb 3 ML IH ONE (10:24)
[2017-03-19] MEDS ORDERED: 0.9 % Sodium Chloride 1,000 ML IVC ONE (10:24)
[2017-03-19] MEDS ORDERED: Ondansetron 4 MG/2 ML VIAL IVP ONE (10:25)
--- NOTE | 2017-03-19 10:43 | Emergency Department Note ---
Disposition Clinical Impression: Generalized weakness, Dehydration Intractable nausea and vomiting Qualifiers: Vomiting type: unspecified Qualified Code(s): R11.2 - Nausea with vomiting, unspecified Acute renal failure superimposed on chronic kidney disease Qualifiers: Acute renal failure type: unspecified Chronic kidney disease stage: unspecified stage Qualified Code(s): N17.9 - Acute kidney failure, unspecified Disposition: Admitted As Inpatient Condition: Fair Referrals: Saleem Ramirez DO [Primary Care Provider] - Forms: ED Satisfaction Letter Time of Disposition: 11:30 General Adult HPI - General Chief complaint: ED Shortness of Breath/Dyspnea Stated complaint: XIOMY/cough/weakness Time Seen by Provider: 03/19/17 10:13 Source: patient, family Limitations: no limitations Nursing Notes Reviewed: Yes Vital Signs Reviewed: Yes - History of Present Illness HPI Narrative: 66-year-old male presents for worsening productive cough, fevers, chills, nausea , vomiting, weakness, fatigue, and loss of appetite. The patient was diagnosed with influenza A on 03/15/17. At that time, he was placed on Tamiflu. He complains of worsening symptoms ever since. He states that due to the degree of extreme nausea, he has not been able tolerate solid food since this past Monday. He denies any chest pain or hemoptysis. He denies any abdominal pain , hematochezia, melena, or hematemesis. Onset (ago): day(s) Pain Scale: 6 Consistency: Worsening Associated symptoms: Reports: cough, fever/chills, loss of appetite, malaise, nausea/vomiting, shortness of breath Treatments Prior to Arrival: other - Related Data Home Medications Medication Instructions Recorded Confirmed Sertraline [Zoloft] 25 mg PO 1400 04/13/16 02/03/17 Folic Acid 1 mg PO DAILY 11/17/16 02/03/17 Insulin ASPART [Novolog Flexpen] 10 - 15 unit SQ TID 11/17/16 02/03/17 Diltiazem CD (24hr) [Cardizem CD] 240 mg PO DAILY 12/15/16 02/03/17 Omeprazole [PriLOSEC] 40 mg PO DAILY 01/12/17 02/03/17 Cyanocobalamin (Vitamin B-12) 1,000 mcg SL DAILY 02/03/17 02/03/17 [Vitamin B-12] Previous Rx's Medication Instructions Recorded Insulin DETEMIR [Levemir] 30 unit SQ HS 30 Days [id number] 01/19/16 Allergies Allergy/AdvReac Type Severity Reaction Status Date / Time No Known Allergies Allergy Verified 02/03/17 07:16 All systems ED: reviewed and negative except as stated. Constitutional: Reports: as per HPI, fever, chills, weakness. Denies: weight change Eyes: Denies: eye pain, eye discharge, vision change ENT ED: Denies: ear pain, throat pain, dental pain, hearing loss, epistaxis, congestion, dysphagia Cardiovascular: Denies: chest pain, palpitations, dyspnea on exertion, edema, syncope Respiratory: Reports: as per HPI, cough, dyspnea, wheezes, sputum production. Denies: hemoptysis, stridor Gastrointestinal: Reports: as per HPI, nausea. Denies: abdominal pain, vomiting , diarrhea, constipation, hematemesis, melena, hematochezia Genitourinary: Denies: urgency, dysuria, frequency, hematuria Musculoskeletal: Reports: myalgia. Denies: back pain, neck pain, arthralgia Integumentary: Denies: rash, abrasion, lesions Neurological: Reports: as per HPI, weakness. Denies: headache, numbness, paresthesias, confusion, abnormal gait, vertigo Psychiatric: Denies: anxiety, depression, suicidal thoughts, homicidal thoughts , auditory hallucinations, visual hallucinations Endocrine: Denies: fatigue Hematological/Lymphatic: Denies: easy bleeding, easy bruising Allergic/Immunologic: Denies: facial swelling, urticaria Past Medical History - Past Medical History Attestation: Yes The following information was validated with the patient. Source: patient, nursing notes reviewed Medical history: Reports: cancer, diabetes, hyperlipidemia, hypertension Surgical history: Reports: orthopedic, other, ureteral stent Psychiatric history: Reports: no psych history - Social History Smoking Status: Never smoker Smokeless Tobacco Status: No Alcohol use: Reports: none Drug use: Reports: none Physical Exam - General Limitations: no limitations General appearance: alert - Head Head exam: atraumatic, normocephalic, normal inspection - Eye Eye exam: Present: normal appearance, PERRL, EOMI. Absent: nystagmus - ENT ENT exam: mucous membranes dry - Neck Neck exam: Present: normal inspection, full ROM, trachea midline - Chest Chest inspection: Present: normal inspection, symmetric chest wall rise - Respiratory Respiratory exam: Present: wheezes (Extra wheezes noted bilaterally), other ( Lungs sounds coarse to auscultation throughout the periphery). Absent: respiratory distress, stridor, accessory muscle use, prolonged expiratory phase - Cardiovascular Cardiovascular exam: Present: regular rate, normal rhythm, normal heart sounds - Abdominal Exam Abdominal exam: Present: soft, Non-Tender, normal bowel sounds - Extremities Exam Extremities exam: Present: normal inspection, full ROM. Absent: tenderness, pedal edema - Neurological Exam Neurological exam: Present: alert, oriented X3 - Psychiatric Psychiatric exam: Present: normal affect, normal mood - Skin Skin exam: Present: warm, dry, intact, normal color. Absent: rash Course Course Narrative: I have discussed this patient's case with Dr. Ahumada. Dr. Ahumada has had a [id number] evaluation with patient and agrees with admission to the hospitalist service for further treatment of his acute on chronic kidney disease , generalized weakness, and intractable nausea. 1155: Spoke with Dr. Dan, hospitalist on-call. Dr. Dan has accepted the patient for admission under the hospitalist service. Vital Signs Temperature 99.7 F H 03/19/17 10:01 Pulse Rate 74 03/19/17 10:01 Respiratory Rate 18 03/19/17 10:01 Blood Pressure 134/83 03/19/17 10:01 O2 Sat by Pulse Oximetry 94 03/19/17 10:01 Temperature 99.7 F H 03/19/17 10:01 Pulse Rate 74 03/19/17 10:01 Respiratory Rate 20 03/19/17 10:57 Blood Pressure 134/83 03/19/17 10:01 O2 Sat by Pulse Oximetry 98 03/19/17 10:57 Oxygen Delivery Oxygen Delivery Room Air Medical Decision Making - Medical Records Medical records reviewed: Yes I reviewed the patient's medical records. - Lab Data Lab results reviewed: Yes I reviewed the patient's lab results. Lab results narrative: Laboratory Last Values WBC 6.9 K/mcL (4.3-11.1) 03/19/17 10:37 RBC 3.56 M/mcL (4.19-5.50) L 03/19/17 10:37 Hgb 10.0 g/dL (12.9-16.9) L 03/19/17 10:37 Hct 31.2 % (37.5-50.1) L 03/19/17 10:37 MCV 87.6 fL (83.0-100.0) 03/19/17 10:37 MCH 28.1 pg (28.0-33.3) 03/19/17 10:37 MCHC 32.1 g/dL (31.6-35.5) 03/19/17 10:37 RDW 13.5 % (11.5-14.5) 03/19/17 10:37 Plt Count 303 K/mcL (140-400) 03/19/17 10:37 MPV 8.5 fL (9.4-12.4) L 03/19/17 10:37 Immature Gran % 0.4 % (0-4) 03/19/17 10:37 Seg Neutrophils % 80.1 % 03/19/17 10:37 Lymphocytes % 9.1 % 03/19/17 10:37 Monocytes % 9.1 % 03/19/17 10:37 Eosinophils % 1.2 % 03/19/17 10:37 Basophils % 0.1 % 03/19/17 10:37 Neutrophils # 5.5 K/mcL (1.6-8.9) 03/19/17 10:37 Lymphocytes # 0.6 K/mcL (0.6-4.6) 03/19/17 10:37 Monocytes # 0.6 K/mcL (0.0-1.3) 03/19/17 10:37 Eosinophils # 0.1 K/mcL (0.0-0.6) 03/19/17 10:37 Basophils # 0.0 K/mcL (0.0-0.2) 03/19/17 10:37 Sodium 132 mEq/L (136-145) L 03/19/17 10:37 Potassium 3.7 mEq/L (3.5-5.1) 03/19/17 10:37 Chloride 101 mEq/L (98-107) 03/19/17 10:37 Carbon Dioxide 21 mEq/L (23-29) L 03/19/17 10:37 BUN 48 mg/dL (8-23) H 03/19/17 10:37 Creatinine 4.56 mg/dL (0.70-1.30) H 03/19/17 10:37 Est GFR ( Amer) 16 (> 60) L 03/19/17 10:37 Est GFR (Non-Af Amer) 13 (> 60) L 03/19/17 10:37 BUN/Creatinine Ratio 11 (6-26) 03/19/17 10:37 Glucose 196 mg/dL (70-105) H 03/19/17 10:37 Calculated Osmolality 292 (280-300) 03/19/17 10:37 Lactic Acid 0.7 mmol/L (0.5-2.2) 03/19/17 10:37 Calcium 8.3 mg/dL (8.6-10.3) L 03/19/17 10:37 Troponin I < 0.03 ng/mL (< 0.04) 03/19/17 10:37 Result diagrams: 03/19/17 10:37 03/19/17 10:37 Lab Results 03/19/17 03/19/17 03/19/17 Range/Units 10:37 10:37 10:37 WBC 6.9 (4.3-11.1) K/mcL RBC 3.56 L (4.19-5.50) M/mcL Hgb 10.0 L (12.9-16.9) g/dL Hct 31.2 L (37.5-50.1) % MCV 87.6 (83.0-100.0) fL MCH 28.1 (28.0-33.3) pg MCHC 32.1 (31.6-35.5) g/dL RDW 13.5 (11.5-14.5) % Plt Count 303 (140-400) K/mcL MPV 8.5 L (9.4-12.4) fL Immature Gran % 0.4 (0-4) % Seg Neutrophils % 80.1 % Lymphocytes % 9.1 % Monocytes % 9.1 % Eosinophils % 1.2 % Basophils % 0.1 % Neutrophils # 5.5 (1.6-8.9) K/mcL Lymphocytes # 0.6 (0.6-4.6) K/mcL Monocytes # 0.6 (0.0-1.3) K/mcL Eosinophils # 0.1 (0.0-0.6) K/mcL Basophils # 0.0 (0.0-0.2) K/mcL Sodium 132 L (136-145) mEq/L Potassium 3.7 (3.5-5.1) mEq/L Chloride 101 (98-107) mEq/L Carbon Dioxide 21 L (23-29) mEq/L BUN 48 H (8-23) mg/dL Creatinine 4.56 H (0.70-1.30) mg/dL Est GFR ( Amer) 16 L (> 60) Est GFR (Non-Af Amer) 13 L (> 60) BUN/Creatinine Ratio 11 (6-26) Glucose 196 H (70-105) mg/dL Calculated Osmolality 292 (280-300) Lactic Acid 0.7 (0.5-2.2) mmol/L Calcium 8.3 L (8.6-10.3) mg/dL Troponin I (< 0.04) ng/mL 03/19/17 Range/Units 10:37 WBC (4.3-11.1) K/mcL RBC (4.19-5.50) M/mcL Hgb (12.9-16.9) g/dL Hct (37.5-50.1) % MCV (83.0-100.0) fL MCH (28.0-33.3) pg MCHC (31.6-35.5) g/dL RDW (11.5-14.5) % Plt Count (140-400) K/mcL MPV (9.4-12.4) fL Immature Gran % (0-4) % Seg Neutrophils % % Lymphocytes % % Monocytes % % Eosinophils % % Basophils % % Neutrophils # (1.6-8.9) K/mcL Lymphocytes # (0.6-4.6) K/mcL Monocytes # (0.0-1.3) K/mcL Eosinophils # (0.0-0.6) K/mcL Basophils # (0.0-0.2) K/mcL Sodium (136-145) mEq/L Potassium (3.5-5.1) mEq/L Chloride (98-107) mEq/L Carbon Dioxide (23-29) mEq/L BUN (8-23) mg/dL Creatinine (0.70-1.30) mg/dL Est GFR ( Amer) (> 60) Est GFR (Non-Af Amer) (> 60) BUN/Creatinine Ratio (6-26) Glucose (70-105) mg/dL Calculated Osmolality (280-300) Lactic Acid (0.5-2.2) mmol/L Calcium (8.6-10.3) mg/dL Troponin I < 0.03 (< 0.04) ng/mL - Radiology Data Radiology results reviewed: Yes I reviewed the patient's radiology results. Chest X-Ray 03/19/17 10:24 IMPRESSION: 1. No acute abnormality. D/ / Rashaun Warren MD / Rashaun Warren MD Interpreting Provider: Rashaun Warren MD - EKG Data EKG #1 EKG attestation: Yes I reviewed and interpreted this EKG. EKG results narrative: EKG reviewed by Dr. Juan Carlos Bliss as well. EKG shows a sinus rhythm with an incomplete right bundle branch block at a rate of 69 bpm. NV interval 180, QRS duration 102, QT/QTc interval 398/417. No ectopy noted. No STEMI. This significant changes when compared to an EKG dated from 01/12/17. Critical Care Time Critical Care Time: Yes Total Critical Care Time: 30 Attestation: Critical care time 30 minutes managing patient's acute renal injury. Attestation Statement - Attestation Attestation: Patient was seen in cooperation with physician dental assistant teacher. I reviewed the history, physical, assessment, and plan, and I agree with the findings. I also personally evaluated and had a [id number] time with this patient. This is a 66-year-old male who presents to the emergency department with a sequela from influenza. Patient was seen by his primary doctor diagnosed with influenza and received several liters of fluids in attempt to rehydrate. However the patient still felt for the last couple of days and his by mouth intake of both food and liquids has diminished. This is resulted in him becoming dehydrated again and also feeling a generalized sense of malaise. On examination vital signs were stable. ENT is unremarkable. Heart regular rhythm and rate. Lungs clear. Abdomen diffusely tender without guarding or rigidity. Extremities unremarkable. Neurologically intact. Skin no rashes. Psych agent appears fatigued. ED course labs revealed acute kidney injury. Patient has some kidney dysfunction and it significantly worsened since the of last month. Patient will be hydrated here in the emergency department will contact the hospitalist service and arranged for admission for rehydration and treatment of his kidney injury. Critical care time for this patient was 30 minutes. Agree with physician dental assistant teacher assessment and plan.
[2017-03-19 10:49] LABS: Basophils % 0.1 %; Eosinophils # 0.1 K/mcL (0.0-0.6); Eosinophils % 1.2 %; Hematocrit 31.2 % (37.5-50.1); Immature Granulocytes % 0.4 % (0-4); Lymphocytes # 0.6 K/mcL (0.6-4.6); Lymphocytes % 9.1 %; Mean Corpuscular HGB Conc 32.1 g/dL (31.6-35.5); Mean Corpuscular Hemoglobin 28.1 pg (28.0-33.3); Mean Corpuscular Volume 87.6 fL (83.0-100.0); Mean Platelet Volume 8.5 fL (9.4-12.4); Monocytes # 0.6 K/mcL (0.0-1.3); Monocytes % 9.1 %; Neutrophils # 5.5 K/mcL (1.6-8.9); Platelet Count 303 K/mcL (140-400); Red Blood Count 3.56 M/mcL (4.19-5.50); Red Cell Distribution Width 13.5 % (11.5-14.5); Segmented Neutrophils % 80.1 %
[2017-03-19 11:07] LABS: Calcium 8.3 mg/dL (8.6-10.3); Potassium 3.7 mEq/L (3.5-5.1)
[2017-03-19] MEDS ORDERED: Ondansetron ODT 4 MG TAB.RAPDIS PO PRN (13:05)
[2017-03-19] MEDS ORDERED: Naloxone 0.4 MG/ML INJ IVP PRN (13:12)
[2017-03-19] MEDS ORDERED: Dextrose Gel 15 GM/37.5 ML TUBE PO PRN ×2 (13:19)
[2017-03-19] MEDS ORDERED: D5% in Water 1,000 ML IVC PRN (13:19)
[2017-03-19] MEDS ORDERED: *HR* Dextrose 50 % in Water (Syg) 50 ML SYRINGE IVP PRN (13:19)
--- NOTE | 2017-03-19 13:26 | Internal Med History&Physical ---
<Chaim Hernandez - Last Filed: 03/19/17 20:34> Date of Encounter: 03/19/17 Time of Encounter: 12:30 Assessment and Plan (1) SOB (shortness of breath) Current visit: Yes Status: Acute Acute SOB r/t recent influenza A dx. Pt. denies use of home O2. DuoNebs Q6 scheduled. Supplemental O2 w/titration and SpO2 monitoring. Respiratory infection panel ordered. Blood cultures x 2 ordered in ED. Pt. reports he was placed on PO tamiflu w/flu dx on 03/15. Did not take final dose today d/t N/V. Will await culture results to determine appropriateness of abx. Pt. discussed w/ Dr. Dan who is in agreement w/plan of care. Pt. is high risk for further morbidity and decline d/t recent flu dx, worsening sx, increasing weakness, dehydration, APOORVA superimposed on CKD, hx, and risk factors. Observation. (2) Intractable nausea and vomiting Current visit: Yes Status: Acute Acute N/V. IVP Zofran 4 mg Q6 scheduled. IVP Protonix 40 mg daily. Liquid diet to be advanced as tolerated. Nutritional consult for PO supplementation. Monitor I&O and daily weight. Qualifiers: Vomiting type: unspecified Qualified Code(s): R11.2 - Nausea with vomiting , unspecified (3) Generalized weakness Current visit: Yes Status: Acute Acute weakness and fatigue d/t recent influenza A, N/V, and dehydration. IV fluid resuscitation. Falls/safety precautions, up with assist, bed rest w/ bedside commode w/assist only. PT/OT consults ordered to assess patient's ambulation strength, stability, safety. (4) Acute renal failure superimposed on chronic kidney disease Current visit: Yes Status: Acute APOORVA superimposed on CKD most likely d/t current dehydration from reduced oral intake and N/V. 0.9 NS IV fluids @ 100 mL/HR. Monitor I&O, daily weight, and f/ u labs for renal status. UA w/reflex culture and micro ordered. Qualifiers: Acute renal failure type: unspecified Chronic kidney disease stage: unspecified stage Qualified Code(s): N17.9 - Acute kidney failure, unspecified ; N18.9 - Chronic kidney disease, unspecified; N18.9 - Chronic kidney disease, unspecified (5) Dehydration Current visit: Yes Status: Acute Acute dehydration d/t recent influenza A dx and anorexia d/t N/V. Concern for for APOORVA superimposed on CKD. 0.9 NS IV fluids @ 100 mL/HR. Monitor I&O, daily weight, and f/u labs for renal status. UA w/reflex culture and micro ordered. (6) HTN (hypertension) Current visit: Yes Status: Chronic Hx of chronic HTN. Pt. reports taking Norvasc previously and having problems, so placed on Cardizem. Will continue. Qualifiers: Hypertension type: essential hypertension Qualified Code(s): I10 - Essential (primary) hypertension (7) HLD (hyperlipidemia) Current visit: Yes Status: Chronic Hx of chronic HLD. Lipid panel in a.m. labs. Pt. does not currently take statin. Consider adding Lipitor based on lipid panel results if warranted. Qualifiers: Hyperlipidemia type: pure hypercholesterolemia Qualified Code(s): E78.00 - Pure hypercholesterolemia, unspecified; E78.0 - Pure hypercholesterolemia (8) GERD (gastroesophageal reflux disease) Current visit: Yes Status: Chronic Hx of chronic GERD. IVP Zofran 4 mg Q6 scheduled for N/V. Protonix 40 mg IVP daily. Qualifiers: Esophagitis presence: esophagitis presence not specified Qualified Code(s) : K21.9 - Gastro-esophageal reflux disease without esophagitis (9) Anemia Current visit: Yes Status: Chronic Hx of anemia. Hgb 10.0 and Hct 31.2 on admission, down from 4.1 and 38.3 on . Patient reports he takes Aranesp injections with Dr. Kelly when Hgb 10 or <. Patient denies unusual bleeding. H/H in a.m. labs. Continue patient's folic acid. Pt. to f/u w/Dr. Kelly on OP basis post-discharge. Qualifiers: Anemia type: other cause Other causes of anemia: other cause, not classified Qualified Code(s): D64.89 - Other specified anemias (10) Diabetes Current visit: Yes Status: Chronic Hx of chronic diabetes controlled with insulin. Continue patient's insulin 3 times a day and at bedtime and add low-dose correction insulin sliding scale with hypoglycemic protocol. BG checks ACHS. A1c in a.m. labs. Qualifiers: Diabetes mellitus type: type 2 Diabetes mellitus complication status: with unspecified complications Diabetes mellitus terminal system operator insulin use: unspecified terminal system operator insulin use status Qualified Code(s): E11.8 - Type 2 diabetes mellitus with unspecified complications (11) History of prostate cancer Current visit: Yes Status: Chronic Hx of prostate cancer. Patient reports 39 radiation treatments between August and October 2016 at [facility] and is currently taking Lupron injections with the last being on 02/17/17 and next scheduled in May. PSA 0.02 on last blood work. Pt. to f/u w/his PCP/oncology on OP basis. (12) DVT prophylaxis Current visit: Yes Status: Acute Heparin 5,000 units SQ Q8 for DVT prophylaxis. Monitor pt. for signs of bleeding. Internal Medicine - H&P: HPI Chief complaint: SOB/Dyspnea/Weakness Admitted From: Emergency Dept Plans for Post Hospital Care: Home History of present illness: Mr. Rivera is a 66 year old male with medical history of prostate cancer ( patient took 39 radiation treatments between August and October 2016 at [facility] and currently takes Lupron injections with last being on 02/17/17 and neck scheduled for May), diabetes controlled with insulin, HLD, HTN, and GERD presents from the ED with chief complaint of shortness of breath, dyspnea, and weakness since 03/15/17. Patient reports he was diagnosed with influenza A on 03/02 and placed on Tamiflu (pt. did not take last does today d/t N/V). Pt. reports becoming progressively worse with cough, SOB, fever, chills, loss of appetite, weakness, nausea, vomiting. Patient denies headache, changes in vision, chest pain, palpitations numbness, tingling, pedal edema, dizziness, lightheadedness, pre- syncope, or syncope. Past Med Surg Social Fam HX - Past Medical History Source: patient, old records reviewed, obtained from family Medical history: cancer (Prostate w/39 radiation treatments between August and October 2016 at [facility] and current Lupron injections w/last one on 02/17/17 and next in May.), diabetes (Insulin controlled), hyperlipidemia, hypertension Psychiatric history: no psych history - Past Surgical History Surgical History: orthopedic, other, ureteral stent - Social History Smoking Status: Never smoker Smokeless Tobacco Status: No Alcohol use: none Drug use: none Current living situation: Home, With Family Activity Level: Independent ambulation Recent Out of Country Travel Within the Last 8 Weeks: No Exposure or Possible Exposure to Illness During Travel: No - Family History Father Race: Family Member Ethnicity: Non- Living Status: Age at : 76 Cause of : Colon cancer Hx Family Cancer: Yes (Colon) Hx Family Endocrine Disorder: Yes (Diabetes) Brother Race: Family Member Ethnicity: Non- Living Status: Age at : 67 Cause of : Colon and lung cancer Hx Family Cancer: Yes (Colon and lung) Mother Race: Family Member Ethnicity: Non- Living Status: Cause of : Gangrene Sister Race: Family Member Ethnicity: Non- Living Status: Still Living Hx Family Genitourinary Disorders: Yes (CKD) Hx Family Endocrine Disorder: Yes (DM) Internal Medicine - H&P: Meds Insulin DETEMIR [Levemir] 30 unit SQ HS 30 Days [id number] 01/19/16 [Rx] Sertraline [Zoloft] 25 mg PO DAILY 04/13/16 [History] Insulin ASPART [Novolog Flexpen] 10 - 15 unit SQ TID 11/17/16 [History] Diltiazem CD (24hr) [Cardizem CD] 240 mg PO DAILY 12/15/16 [History] Omeprazole [PriLOSEC] 40 mg PO DAILY 01/12/17 [History] Cholecalciferol (D-3) [Vitamin D] 1,000 unit PO DAILY 03/19/17 [History] Folic Acid [FA-8] 0.8 mg PO DAILY 03/19/17 [History] Lactobacillus Combination No.9 [Adult 50 + Probiotic] 1 cap PO DAILY 03/19/17 [ History] Ondansetron HCl [Zofran] 4 mg PO TID PRN 03/19/17 [History] 3 Allergy/AdvReac Type Severity Reaction Status Date / Time No Known Allergies Allergy Verified 02/03/17 07:16 All Systems PM: A 10-system review of systems was performed and is negative for pertinent findings except as documented above in the HPI. - Constitutional Constitutional: as per HPI, anorexia, chills, fatigue, fever(s), malaise, weakness, no night sweats - EENT Eyes: no change in vision, no discharge, no pain, no photophobia Ears: no ear discharge, no ear pain, no tinnitus Nose, mouth and throat: no dysphagia, no nasal discharge, no neck pain, no sore throat - Breasts Breasts: as per HPI - Cardiovascular Cardiovascular ROS IM: as per HPI, dyspnea, dyspnea on exertion, no chest pain, no diaphoresis, no lightheadedness, no palpitations, no syncope - Respiratory Respiratory: as per HPI, cough, dyspnea, dyspnea on exertion, no wheezing, no excessive phlegm production - Gastrointestinal Gastrointestinal: as per HPI, abdominal pain, diarrhea, nausea, vomiting, no hematemesis, no hematochezia, no melena - Genitourinary Genitourinary ROS male: as per HPI, other (Reduced urine output) - Musculoskeletal Musculoskeletal ROS IM: no numbness, no tingling - Integumentary Integumentary IM: no rash, no unusual bruising - Neurological Neurological ROS: as per HPI, weakness, no confusion, no convulsions, no focal weakness, no numbness, no tingling, no tremor(s) - Psychiatric Psychiatric: as per HPI - Endocrine Endocrine IM: as per HPI - Hematologic/Lymphatic Hematologic/Lymphatic: no easy bruising - Allergic/Immunologic Allergic/Immunologic: as per HPI - Constitutional Vitals: Temp Pulse Resp BP Pulse Ox 99.7 F H 84 16 144/86 95 03/19/17 10:01 03/19/17 12:20 03/19/17 12:20 03/19/17 12:20 03/19/17 12:20 General appearance: Present: cooperative, mild distress (Weakness), A&O X 3, pleasant, obese, answers questions appropriately - Head Head exam: Present: atraumatic, normocephalic - Eye Eye exam: Present: PERRL, conjuntiva pink, sclera anicteric Pupils: Present: PERRL - ENT ENT exam: Present: normal exam - Neck Neck exam general surgery: Present: normal inspection, supple, trachea midline. Absent: lymphadenopathy - Respiratory Respiratory exam: Present: CTAB. Absent: accessory muscle use, rales, rhonchi, wheezes - Cardiovascular Cardiovascular exam: Present: RRR, +S1, +S2. Absent: diastolic murmur, gallop, rubs, systolic murmur - GI/Abdominal GI/Abdominal exam: Present: normal bowel sounds, soft, no peritoneal signs. Absent: distended, tenderness - Rectal Rectal exam: Present: deferred - Additional comments: exam deferred. - Extremities Exam Extremities exam: Present: warm, radial pulses palpable and symmetrical. Absent : calf tenderness, cyanotic, pedal edema - Back Exam Back exam: Present: normal inspection - Neurological Exam Neurological exam: Present: CN II-XII intact, oriented X3, no focal deficits. Absent: pronater drift, facial droop, speech deficit - Psychiatric Psychiatric exam: Present: normal affect, normal mood - Skin Skin exam: Present: dry, intact Internal Med - H&P Results - Labs CBC & Chem 7: 03/19/17 10:37 03/19/17 10:37 - EKG Data EKG shows normal: sinus rhythm - EKG Data Prior EKG available for review: yes EKG comments: 03/19/17 13:33 EKG dated 01/12/17 shows sinus rhythm with incomplete right bundle branch block and possible left ventricular hypertrophy. EKG dated 03/19/17 sinus with incomplete right bundle branch block, voltage criteria for LVH. - Diagnostic Studies Chest x-ray Additional comments: Impressions Chest X-Ray 03/19/17 10:24 IMPRESSION: 1. No acute abnormality. D/ / Rashaun Warren MD / Rashaun Warren MD Interpreting Provider: Rashaun Warren MD <Guy Dan - Last Filed: 03/20/17 19:05> Date of Encounter: 03/20/17 Internal Medicine - H&P: HPI History of present illness: Mr. Rivera is a 66 year old male All Systems PM: A 10-system review of systems was performed and is negative for pertinent findings except as documented above in the HPI. - Constitutional Vitals: Temp Pulse Resp BP Pulse Ox 97.5 F L 67 16 106/66 97 03/20/17 16:01 03/20/17 16:01 03/20/17 16:05 03/20/17 16:01 03/20/17 16:05 Internal Med - H&P Results - Labs CBC & Chem 7: 03/20/17 05:38 03/20/17 05:38 - Attending Attestation Discussed with YOLANDA and agree with assessment and plan Continue supportive care
[2017-03-19] MEDS ORDERED: Pantoprazole 40 MG VIAL IVP SCH (13:30)
[2017-03-19] MEDS ORDERED: Cyanocobalamin (B-12) 1,000 MCG TABLET PO SCH (13:45)
[2017-03-19] MEDS: 0.9 % Sodium Chloride 1,000 ML IVC SCH (14:44)
[2017-03-19] MEDS: *HR* Heparin 5,000 UNIT/ML VIAL SQ SCH ×2 (14:44→21:41)
[2017-03-19 15:49] LABS: Bilirubin,Urine Negative (Negative); Blood,Urine Large (Negative); Clarity,Urine Turbid (Clear); Color,Urine Yellow (Yellow); Glucose,Urine (UA) Normal (Normal); Ketones,Urine Negative (Negative); Leukocyte Esterase,Urine Large (Negative); Nitrite,Urine Negative (Negative); Protein,Urine 100 mg/dL (Neg-Trace); Specific Gravity,Urine 1.013 (1.010-1.025); Urobilinogen,Urine Normal (Normal)
[2017-03-19 15:51] LABS: Bacteria,Urine None Seen per hpf (None-Few); Hyaline Casts,Urine None Seen per lpf (None-Few); Squamous Epithelial Cell,Urine Many per lpf (None-Few); WBC,Urine TNTC per hpf (0-3)
[2017-03-19] MEDS: Ipratropium/Albuterol Neb 3 ML IH SCH ×2 (16:02→22:47)
[2017-03-19] MEDS: Ondansetron 4 MG/2 ML VIAL IVP SCH (16:24)
[2017-03-19] MEDS: Insulin LISPRO 300 UNITS/3 ML VIAL SQ SCH ×2 (16:25)
[2017-03-19] MEDS ORDERED: *HR* OxyCODONE Immed Rel 5 MG TABLET PO PRN (16:46)
[2017-03-19] MEDS: *HR* HYDROcodone/Acet 5/325 mg TABLET PO PRN (17:31)
[2017-03-19 17:36] LABS: Adenovirus Not Detected (Not Detect); Bordetella Pertussis Not Detected (Not Detect); Chlamydophila pneumoniae Not Detected (Not Detect); Coronavirus 229E Not Detected (Not Detect); Coronavirus HKU1 Not Detected (Not Detect); Coronavirus NL63 Not Detected (Not Detect); Coronavirus OC43 Not Detected (Not Detect); Human Metapneumovirus Not Detected (Not Detect); Human Rhinovirus/Enterovirus Not Detected (Not Detect); Influenza A Subtype 2009 H1 Not Detected (Not Detect); Influenza A Untypeable Not Detected (Not Detect); Influenza B Not Detected (Not Detect); Mycoplasma pneumoniae Not Detected (Not Detect); Parainfluenza Virus 1 Not Detected (Not Detect); Parainfluenza Virus 2 Not Detected (Not Detect); Parainfluenza Virus 3 Not Detected (Not Detect); Parainfluenza Virus 4 Not Detected (Not Detect); Respiratory Syncytial Virus Not Detected (Not Detect)
[2017-03-19] MEDS: Insulin DETEMIR 100 UNIT/ML X5UNITS SQ SCH (21:41)
[2017-03-20] MEDS: Ondansetron 4 MG/2 ML VIAL IVP SCH ×2 (00:24→05:39)
[2017-03-20] MEDS: 0.9 % Sodium Chloride 1,000 ML IVC SCH ×3 (00:25→22:23)
[2017-03-20] MEDS: Ipratropium/Albuterol Neb 3 ML IH SCH ×4 (03:55→21:44)
[2017-03-20] MEDS: *HR* Heparin 5,000 UNIT/ML VIAL SQ SCH ×4 (05:39→23:18)
[2017-03-20] MEDS: *HR* HYDROcodone/Acet 5/325 mg TABLET PO PRN ×2 (05:43→22:30)
[2017-03-20 06:04] LABS: Basophils % 0.2 %; Eosinophils % 0.2 %; Hematocrit 24.5 % (37.5-50.1); Immature Granulocytes % 0.5 % (0-4); Lymphocytes # 0.4 K/mcL (0.6-4.6); Lymphocytes % 7.3 %; Mean Corpuscular HGB Conc 33.5 g/dL (31.6-35.5); Mean Corpuscular Hemoglobin 28.8 pg (28.0-33.3); Mean Platelet Volume 8.9 fL (9.4-12.4); Monocytes # 0.5 K/mcL (0.0-1.3); Monocytes % 7.9 %; Platelet Count 235 K/mcL (140-400); Red Blood Count 2.85 M/mcL (4.19-5.50); Red Cell Distribution Width 13.8 % (11.5-14.5); Segmented Neutrophils % 83.9 %
[2017-03-20 06:11] LABS: Hemoglobin 8.2 g/dL (12.9-16.9)
[2017-03-20 06:41] LABS: Alanine Aminotransferase 10 Units/L (7-52); Albumin 2.8 g/dL (3.5-5.7); Albumin/Globulin Ratio 0.9 (1.1-2.2); Alkaline Phosphatase 50 Units/L (34-104); Aspartate Amino Transferase 11 Units/L (13-39); BUN/Creatinine Ratio 9 (6-26); Bilirubin,Total 0.3 mg/dL (0.3-1.0); Blood Urea Nitrogen 44 mg/dL (8-23); Calcium 7.5 mg/dL (8.6-10.3); Carbon Dioxide 18 mEq/L (23-29); Chloride 105 mEq/L (98-107); Chol/HDL Ratio 7.4 (0-4.9); Cholesterol 155 mg/dL (< 200); Globulin 3.1 g/dL (2.4-3.5); Glucose 229 mg/dL (70-105); HDL Cholesterol 21 mg/dL (40-59); LDL Cholesterol,Calculated 94 mg/dL (0-99); Magnesium 1.9 mg/dL (1.6-2.6); Osmolality,Calculated 296 (280-300); Potassium 3.2 mEq/L (3.5-5.1); Sodium 134 mEq/L (136-145); Total Protein 5.9 g/dL (6.4-8.9); Triglycerides 198 mg/dL (< 150); eGFR For African Americans 15 (> 60); eGFR For Non-African Americans 13 (> 60)
[2017-03-20 07:10] LABS: Hemoglobin A1C 7.3 %
[2017-03-20] MEDS: Insulin LISPRO 300 UNITS/3 ML VIAL SQ SCH ×7 (08:36→20:22)
[2017-03-20] MEDS: Folic Acid 1 MG TABLET PO SCH (08:36)
[2017-03-20] MEDS: Cholecalciferol (D-3) 1,000 UNIT TABLET PO SCH (08:36)
[2017-03-20] MEDS: Lactobacillus 1 EACH CAP.SPRINK PO SCH (08:36)
--- NOTE | 2017-03-20 08:52 | Nephrology Consult Note ---
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 Acute kidney injury is in the setting of recent diagnosis of influenza with associated nausea and decreased oral intake. He likely has a component of volume depletion contributing to his acute kidney injury. Also his blood pressure is running on the low side. I would recommend continuing the IV fluids. He will need some potassium replacement. I he will continue on Aranesp that he receives as an outpatient for his anemia of chronic kidney disease. I am also going to place his Cardizem on hold since his blood pressure is running low. Hopefully his renal function will improve back to his previous baseline. 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 Baseline creatinine ranges from 2.3-2.5. Patient reports she became ill at all of last week. He saw his primary care physician on Monday. He was diagnosed with influenza as well as volume depletion. He received some IV fluids as an outpatient and was placed on Tamiflu. The following day he was feeling better. The day after that he started to feel worse and developed weakness fevers chills nausea vomiting and decreased oral intake. He continued to worsen and subsequently presented to the hospital and was admitted. He was noted to have acute kidney injury superimposed on his chronic kidney disease. Creatinine was 4.56 yesterday and 4.64 today. He is currently receiving some IV fluids. He says that his nausea is starting to improve and is able to eat a little bit. His blood pressure is running on the low side at 99/63. He does have bilateral ureteral stents in place because of prostate cancer involving the ureteral orifices. He denies any difficulty emptying his bladder. He denies any signs or symptoms of a urinary tract infection. Past Med Surg Social Fam HX - Past Medical History Medical history: cancer (Prostate w/39 radiation treatments between August and October 2016 at [facility] and current Lupron injections w/last one on 02/17/17 and next in May.), diabetes (Insulin controlled), hyperlipidemia, hypertension Psychiatric history: no psych history - Past Surgical History Surgical History: orthopedic, other, ureteral stent - Social History Smoking Status: Never smoker Smokeless Tobacco Status: No Alcohol use: none Drug use: none - Family History Father Race: Family Member Ethnicity: Non- Living Status: Age at : 76 Cause of : Colon cancer Hx Family Cardiac Disorders: No Hx Family Respiratory Disorders: No Hx Family Cancer: Yes (Colon) Hx Family GI Disorders: No Hx Family Endocrine Disorder: Yes (Diabetes) Hx Family Neuromuscular Disorders: No Hx Family Neurologic Disorders: No Hx Family HEENT Disorders: No Hx Family Autoimmune Disorders: No Brother Race: Family Member Ethnicity: Non- Living Status: Age at : 67 Cause of : Colon and lung cancer Hx Family Cancer: Yes (Colon and lung) Mother Race: Family Member Ethnicity: Non- Living Status: Cause of : Gangrene Sister Race: Family Member Ethnicity: Non- Living Status: Still Living Hx Family Genitourinary Disorders: Yes (CKD) Hx Family Endocrine Disorder: Yes (DM) Medications and Allergies Insulin DETEMIR [Levemir] 30 unit SQ HS 30 Days [id number] 01/19/16 [Rx] Sertraline [Zoloft] 25 mg PO DAILY 04/13/16 [History] Insulin ASPART [Novolog Flexpen] 10 - 15 unit SQ TID 11/17/16 [History] Diltiazem CD (24hr) [Cardizem CD] 240 mg PO DAILY 12/15/16 [History] Omeprazole [PriLOSEC] 40 mg PO DAILY 01/12/17 [History] Cholecalciferol (D-3) [Vitamin D] 1,000 unit PO DAILY 03/19/17 [History] Folic Acid [FA-8] 0.8 mg PO DAILY 03/19/17 [History] Lactobacillus Combination No.9 [Adult 50 + Probiotic] 1 cap PO DAILY 03/19/17 [ History] Ondansetron HCl [Zofran] 4 mg PO TID PRN 03/19/17 [History] 3 Allergy/AdvReac Type Severity Reaction Status Date / Time No Known Allergies Allergy Verified 02/03/17 07:16 Review of Systems Constitutional: as per HPI, fever(s), lethargy, weakness, no excessive sweating Nose, mouth and throat: no dizziness, no headache(s) Cardiovascular: as per HPI, dyspnea on exertion Respiratory: as per HPI, cough, dyspnea on exertion Gastrointestinal: nausea Genitourinary Male: as per HPI Musculoskeletal: no muscle weakness, no numbness Integumentary: no hirsutism, no striae Neurological: weakness Psychiatric: no depression, no difficulty concentrating Endocrine: as per HPI Hematologic/Lymphatic: no easy bruising, no lymphadenopathy Exam - Vital Signs Vital signs: Initial Vital Signs Temp Pulse Resp BP Pulse Ox 99.7 F H 74 18 134/83 94 03/19/17 10:01 03/19/17 10:01 03/19/17 10:01 03/19/17 10:01 03/19/17 10:01 Vital Signs - Last 8 Hours Temp Pulse Resp BP Pulse Ox 03/20/17 07:12 98.1 F 79 16 99/63 97 03/20/17 03:56 18 94 03/20/17 03:32 99.2 F 85 16 100/57 93 Intake and Output 03/19/17 03/20/17 03/20/17 23:59 07:59 15:59 Intake Total 120 / 120 1000 / 1000 Output Total 0 / 0 Balance 120 / 120 1000 / 1000 Intake: IV Fluids 1000 / 1000 0.9 % Sodium Chloride 1,000 ML 1000 / 1000 @ 100 mls/hr IVC .Q10H [facility] Rx#: [id number] Oral 120 / 120 Output: Urine 0 / 0 Other: Meal Dinner Percent of Meal Consumed 100% Weight 107.592 kg Blood Glucose* 245 231 Patient Weight 03/20/17 23:59 Weight 107.592 kg - General Appearance Exam: Patient is alert and oriented. He is in no acute distress. Lungs show some coarse breath sounds otherwise clear. There is no wheezing rales or rhonchi. Heart regular rate and rhythm. Abdomen shows several bowel sounds braze masses get a megaly or tenderness. There is no lower extremity swelling. Results - Lab Results 03/20/17 05:38 03/20/17 05:38 Most recent lab results Calcium 7.5 mg/dL (8.6-10.3) L 03/20/17 05:38 Magnesium 1.9 mg/dL (1.6-2.6) 03/20/17 05:38 Consult Discharge Plan - Plan Referrals: Saleem Ramirez DO [Primary Care Provider] -
[2017-03-20] MEDS ORDERED: Darbepoetin 100 MCG/0.5 ML SYRINGE SQ SCH (09:00)
[2017-03-20] MEDS ORDERED: Diltiazem CD (24hr) 240 MG CAPSULE PO SCH (09:00)
[2017-03-20 10:56] LABS: Iron < 10 mcg/dL (65-175); Transferrin 138 mg/dL (203-362)
[2017-03-20] MEDS ORDERED: 0.9 % Sodium Chloride 1,000 ML ONE (12:13)
[2017-03-20] MEDS: Ondansetron 4 MG/2 ML VIAL IVP PRN ×2 (15:31→22:29)
--- NOTE | 2017-03-20 15:50 | Internal Med Progress Note ---
Date of Encounter: 03/20/17 Time of Encounter: 15:30 - Assessment and plan (1) Acute kidney injury superimposed on chronic kidney disease Current Visit: Yes Status: Acute Assessment and plan: likely prerenal in the setting of influenza with decreased PO intake nephrology on board and consultation appreciated will continue IV fluids Renal US noted, bladder wall thickening posteriorly concerning for neoplasm due to which urology evaluation requested will closely monitor renal function (2) Influenza Current Visit: Yes Status: Acute Assessment and plan: Pt recently had four days of Tamiflu prior to hospitalization will continue supportive care at this time IV fluids, bronchodilator support, tyelnol as needed (3) Generalized weakness Current Visit: Yes Status: Acute Assessment and plan: secondary to underlying influenza continue supportive care (4) Intractable nausea and vomiting Current Visit: Yes Status: Acute Assessment and plan: continue supportive care anti-emetics as needed Qualifiers: Vomiting type: unspecified Qualified Code(s): R11.2 - Nausea with vomiting , unspecified (5) SOB (shortness of breath) Current Visit: Yes Status: Resolved Assessment and plan: resolved at this time (6) Anemia Current Visit: Yes Status: Chronic Assessment and plan: history of anemia of chronic disease secondary to CKD continue Aranesp as per nephrology H&H low but acceptable will continue to closely monitor no acute bleeding reported at this time Qualifiers: Anemia type: other cause Other causes of anemia: other cause, not classified Qualified Code(s): D64.89 - Other specified anemias (7) Diabetes Current Visit: Yes Status: Chronic Assessment and plan: continue home dose of levemir sliding scale insulin algorithm as needed monitor FS and BG ADA diet Qualifiers: Diabetes mellitus type: type 2 Diabetes mellitus complication status: with unspecified complications 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: unspecified retirement insulin use status Qualified Code(s): E11.8 - Type 2 diabetes mellitus with unspecified complications (8) Hypertension Current Visit: No Status: Chronic Assessment and plan: Noted to be hypotensive holding cardizem at this time will continue to closely monitor BP Qualifiers: Hypertension type: essential hypertension Qualified Code(s): I10 - Essential (primary) hypertension (9) DVT prophylaxis Current Visit: Yes Status: Acute Assessment and plan: heparin SQ - Subjective Interval history: Patient seen and examined with family present at bedside. He reports of feeling better compared to previous day. Denies shortness of breath at this time and currently saturating well on room air. Reports of generalized weakness but improvement in n/v, tolerating a bit more PO intake. - Constitutional Vitals: Temp Pulse Resp BP Pulse Ox 98.1 F 79 16 99/63 97 03/20/17 07:12 03/20/17 07:12 03/20/17 07:12 03/20/17 12:14 03/20/17 07:12 General appearance: Present: cooperative, A&O X 3 (weak), pleasant, no acute distress, obese, answers questions appropriately - Head Head exam: Present: atraumatic, normocephalic - Eye Eye exam: Present: conjuntiva pink, sclera anicteric - Respiratory Respiratory exam: Present: CTAB. Absent: respiratory distress, wheezes - Cardiovascular Cardiovascular exam: Present: RRR, +S1, +S2. Absent: diastolic murmur, gallop, rubs, systolic murmur - GI/Abdominal GI/Abdominal exam: Present: normal bowel sounds, soft, no peritoneal signs. Absent: distended, tenderness - Extremities Exam Extremities exam: Present: warm, radial pulses palpable and symmetrical. Absent : calf tenderness, pedal edema - Neurological Exam Neurological exam: Present: alert, oriented X3 - Psychiatric Psychiatric exam: Present: normal affect, normal mood Internal Medicine: Result - Labs CBC & Chem 7: 03/20/17 05:38 03/20/17 05:38 Labs: Short CBC 03/20/17 Range/Units 05:38 WBC 5.9 (4.3-11.1) K/mcL Hgb 8.2 L D (12.9-16.9) g/dL Hct 24.5 L (37.5-50.1) % Plt Count 235 (140-400) K/mcL Neutrophils # 5.0 (1.6-8.9) K/mcL BMP 03/20/17 05:38 Sodium 134 L Potassium 3.2 L Chloride 105 Carbon Dioxide 18 L BUN 44 H Creatinine 4.64 H Glucose 229 H Calcium 7.5 L Liver Function 03/20/17 Range/Units 05:38 Total Bilirubin 0.3 (0.3-1.0) mg/dL AST 11 L (13-39) Units/L ALT 10 (7-52) Units/L Alkaline Phosphatase 50 (34-104) Units/L Albumin 2.8 L (3.5-5.7) g/dL Urine 03/19/17 Range/Units 15:35 Urine Color Yellow (Yellow) Urine Clarity Turbid A (Clear) Urine pH 6.0 (5.0-8.0) pH Units Ur Specific Vesper 1.013 (1.010-1.025) Urine Protein 100 H (Neg-Trace) mg/dL Urine Glucose (UA) Normal (Normal) mg/dL - ABG Interpretation ABG results: PT/INR, D-dimer D-Dimer 1193 ng/mLFEU (0-500) H 03/19/17 17:05 - Impressions Impressions Retroperitoneum Ultrasound 03/20/17 11:00 IMPRESSION: Hydronephrosis which is moderate bilaterally. This is similar to previous exam. Bladder wall appears thickened especially posteriorly. It is uncertain if this is related to underdistention or potentially neoplasm a special along the posterior wall. Recommend further evaluation with cystoscopy. D/ / Osiris Rodriguez MD / Osiris Rodriguez MD Interpreting Provider: Osiris Rodriguez MD Consult Discharge Plan - Plan Referrals: Saleem Ramirez DO [Primary Care Provider] -
--- NOTE | 2017-03-20 17:24 | Electrocardiograph Report ---
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
[2017-03-20] MEDS: Insulin DETEMIR 100 UNIT/ML X5UNITS SQ SCH (20:23)
[2017-03-20] MEDS: Acetaminophen 325 MG TABLET PO PRN (20:41)
[2017-03-20] MEDS ORDERED: Insulin LISPRO 300 UNITS/3 ML VIAL SQ SCH (21:00)
--- NOTE | 2017-03-21 00:37 | Event Note ---
Date of Encounter: 03/21/17 Time of Encounter: 23:30 Nurse paged me to inform me that pt. was having hematuria this evening. Reported that two previous urines were straw-colored. Went to see patient who was sleeping comfortably. On waking, pt. and daughter report that hematuria is not new d/t pt. having two metal coils placed. Report that Dr. Ibarra was aware of the hematuria and informed pt. and daughter that this was to be expected while the coils settle in. Pt. receiving 0.9 NS IV fluids @ 100 mL/HR. Dr. Kelly's recommendation from Nephrology consult is to continue IV fluids. Urology consult placed to let Dr. Ibarra know that the pt. is admitted and that there is hematuria currently. IV fluids increased to 125 mL/ HR. Pt. and daughter informed that Dr. Ibarra will be notified. Pt. resting comfortably w/o complaints on re-examination.
[2017-03-21] MEDS: 0.9 % Sodium Chloride 1,000 ML IVC SCH ×2 (03:32→07:03)
[2017-03-21] MEDS: Ipratropium/Albuterol Neb 3 ML IH SCH ×4 (03:45→21:12)
[2017-03-21 06:05] LABS: Basophils % 0.1 %; Eosinophils # 0.5 K/mcL (0.0-0.6); Eosinophils % 6.3 %; Hematocrit 25.4 % (37.5-50.1); Hemoglobin 8.1 g/dL (12.9-16.9); Immature Granulocytes % 1.2 % (0-4); Lymphocytes # 0.3 K/mcL (0.6-4.6); Lymphocytes % 4.3 %; Mean Corpuscular HGB Conc 31.9 g/dL (31.6-35.5); Mean Corpuscular Hemoglobin 28.4 pg (28.0-33.3); Mean Corpuscular Volume 89.1 fL (83.0-100.0); Mean Platelet Volume 9.3 fL (9.4-12.4); Monocytes # 0.6 K/mcL (0.0-1.3); Monocytes % 7.6 %; Neutrophils # 5.9 K/mcL (1.6-8.9); Platelet Count 262 K/mcL (140-400); Red Blood Count 2.85 M/mcL (4.19-5.50); Red Cell Distribution Width 13.8 % (11.5-14.5); Segmented Neutrophils % 80.5 %
[2017-03-21 06:23] LABS: Albumin 2.8 g/dL (3.5-5.7); Albumin/Globulin Ratio 0.9 (1.1-2.2); Bilirubin,Total 0.3 mg/dL (0.3-1.0); Calcium 7.8 mg/dL (8.6-10.3); Magnesium 1.8 mg/dL (1.6-2.6); Phosphorous 3.8 mg/dL (2.7-4.5); Potassium 3.5 mEq/L (3.5-5.1); Total Protein 5.8 g/dL (6.4-8.9)
[2017-03-21] MEDS: Ondansetron 4 MG/2 ML VIAL IVP PRN ×4 (06:40→22:14)
[2017-03-21] MEDS: Acetaminophen 325 MG TABLET PO PRN ×3 (06:40→22:14)
[2017-03-21] MEDS: Folic Acid 1 MG TABLET PO SCH (07:59)
[2017-03-21] MEDS: Cholecalciferol (D-3) 1,000 UNIT TABLET PO SCH (07:59)
[2017-03-21] MEDS: Insulin LISPRO 300 UNITS/3 ML VIAL SQ SCH ×7 (08:00→22:12)
[2017-03-21] MEDS: Lactobacillus 1 EACH CAP.SPRINK PO SCH (08:01)
--- NOTE | 2017-03-21 08:39 | Nephrology Progress Note ---
Date of Encounter: 03/21/17 Time of Encounter: 08:37 - Assessment and Plan (1) APOORVA (acute kidney injury) Current Visit: No Status: Acute The patient has acute kidney injury superimposed on stage IV chronic kidney disease in the setting of influenza infection with associated decreased oral intake and volume depletion. He is slowly improving with IV hydration. Renal ultrasound does show bilateral hydronephrosis but he does have bilateral ureteral stents in place. (2) Chronic kidney disease, stage III (moderate) Current Visit: No Status: Acute (3) Influenza Current Visit: Yes Status: Acute (4) Prostate CA Current Visit: No Status: Chronic Subjective Interval history: Patient was having some nausea yesterday. Today he says he is feeling better and the nausea is improved. Serum creatinine is slightly improved from 4.64 down to 4.44. Urine output is low but I do not believe that it has been accurately recorded. Objective - Vital Signs Vital signs: Vital Signs Temp Pulse Resp BP Pulse Ox 03/21/17 07:51 98.5 F 104 16 122/66 92 03/21/17 06:11 98.3 F 89 16 113/65 96 03/21/17 03:45 16 93 03/21/17 00:11 98.4 F 72 16 96/51 93 03/20/17 21:44 18 96 03/20/17 20:08 99.1 F 75 16 111/62 94 Intake and Output 03/20/17 03/21/17 03/21/17 23:59 07:59 15:59 Intake Total 1850 / 1950 1400 / 1400 Output Total 380 / 380 320 / 320 Balance 1470 / 1570 1080 / 1080 Intake: IV Fluids 1000 / 1000 1000 / 1000 0.9 % Sodium Chloride 1,000 ML 1000 / 1000 1000 / 1000 @ 125 mls/hr IVC .Q8H [facility] Rx#: [id number] Oral 850 / 850 400 / 400 Output: Urine 380 / 380 320 / 320 Other: Blood Glucose* 122 - General Appearance Exam: Patient is alert and oriented. He is in no acute distress. Lungs essentially clear to auscultation. Heart regular rate and rhythm. Abdomen is benign. There is minimal lower extremity swelling. - Lab 03/21/17 05:40 03/21/17 05:40 Most recent lab results Calcium 7.8 mg/dL (8.6-10.3) L 03/21/17 05:40 Phosphorus 3.8 mg/dL (2.7-4.5) 03/21/17 05:40 Magnesium 1.8 mg/dL (1.6-2.6) 03/21/17 05:40 Consult Discharge Plan - Plan Referrals: Saleem Ramirez DO [Primary Care Provider] -
--- NOTE | 2017-03-21 12:22 | Urology - Consult Note ---
Date of Encounter: 03/21/17 Time of Encounter: 12:20 - Assessment and Plan (1) Acute kidney injury superimposed on chronic kidney disease Current Visit: Yes Status: Acute Assessment and plan: Patient's serum creatinine has slightly improved with IV fluids. Nephrology following closely. I do have some concern that the patient's kidneys could continue to be blocked thus contributing to his hydronephrosis. We will keep a close eye on his serum creatinine. (2) Hydronephrosis Current Visit: No Status: Acute Assessment and plan: This is likely secondary to distal obstruction from advanced prostate cancer. I do have some concern that the bilateral metal stents are no longer functioning as appropriate. If his serum creatinine fails to improve we may need to consider having interventional radiology place bilateral nephrostomy tubes. Patient was not too keen on having bilateral nephrostomy tubes back in place and I informed him that we would discuss this at length if his serum creatinine fails to continue to improve Qualifiers: Hydronephrosis type: other Qualified Code(s): N13.39 - Other hydronephrosis (3) Prostate cancer Current Visit: No Status: Acute Assessment and plan: PSA last checked in November which was 0.4. This is likely contributing to his hydronephrosis as well as elevated serum creatinine. We will continue following this closely. Urology CN:HPI Consult date: 03/21/17 Reason for consult Urology: Hydronephrosis Requesting physician: Charito Paredes History of present illness: Faustino is a 66-year-old male who was admitted to the hospital secondary to flu symptoms. Patient was found on recent renal ultrasound to have bilateral hydronephrosis with some bladder wall thickening. Patient is known to the urology service for having locally advanced prostate cancer. He recently had bilateral ureteral stents placed in January 2017. His serum creatinine has been elevated since arrival to the hospital but has improved slightly with IV hydration. Patient denies any flank pain at this time. No nausea or vomiting. Patient states that he feels much improved since having IV fluids for treatment of his flu symptoms. Past Med Surg Social Fam HX - Past Medical History Medical history: cancer (Prostate w/39 radiation treatments between August and October 2016 at [facility] and current Lupron injections w/last one on 02/17/17 and next in May.), diabetes (Insulin controlled), hyperlipidemia, hypertension Psychiatric history: no psych history - Past Surgical History Surgical History: orthopedic, other, ureteral stent - Social History Smoking Status: Never smoker Smokeless Tobacco Status: No Alcohol use: none Drug use: none - Family History Father Race: Family Member Ethnicity: Non- Living Status: Age at : 76 Cause of : Colon cancer Hx Family Cardiac Disorders: No Hx Family Respiratory Disorders: No Hx Family Cancer: Yes (Colon) Hx Family GI Disorders: No Hx Family Endocrine Disorder: Yes (Diabetes) Hx Family Neuromuscular Disorders: No Hx Family Neurologic Disorders: No Hx Family HEENT Disorders: No Hx Family Autoimmune Disorders: No Brother Race: Family Member Ethnicity: Non- Living Status: Age at : 67 Cause of : Colon and lung cancer Hx Family Cancer: Yes (Colon and lung) Mother Race: Family Member Ethnicity: Non- Living Status: Cause of : Gangrene Sister Race: Family Member Ethnicity: Non- Living Status: Still Living Hx Family Genitourinary Disorders: Yes (CKD) Hx Family Endocrine Disorder: Yes (DM) Medications and Allergies Insulin DETEMIR [Levemir] 30 unit SQ HS 30 Days [id number] 01/19/16 [Rx] Sertraline [Zoloft] 25 mg PO DAILY 04/13/16 [History] Insulin ASPART [Novolog Flexpen] 10 - 15 unit SQ TID 11/17/16 [History] Diltiazem CD (24hr) [Cardizem CD] 240 mg PO DAILY 12/15/16 [History] Omeprazole [PriLOSEC] 40 mg PO DAILY 01/12/17 [History] Cholecalciferol (D-3) [Vitamin D] 1,000 unit PO DAILY 03/19/17 [History] Folic Acid [FA-8] 0.8 mg PO DAILY 03/19/17 [History] Lactobacillus Combination No.9 [Adult 50 + Probiotic] 1 cap PO DAILY 03/19/17 [ History] Ondansetron HCl [Zofran] 4 mg PO TID PRN 03/19/17 [History] 3 Allergy/AdvReac Type Severity Reaction Status Date / Time No Known Allergies Allergy Verified 02/03/17 07:16 Review of Systems - Constitutional no chills, no fever(s) - EENT Nose, mouth and throat: no dizziness - Cardiovascular no chest pain - Respiratory no cough - Gastrointestinal no abdominal pain, no vomiting - Genitourinary no flank pain, no nocturia - Musculoskeletal no back pain - Integumentary no erythema, no swelling - Neurological no confusion, no weakness - Psychiatric no anxiety, no confusion - Hematologic/Lymphatic no lymphadenopathy Exam Initial Vital Signs Temp Pulse Resp BP Pulse Ox 99.7 F H 74 18 134/83 94 03/19/17 10:01 03/19/17 10:01 03/19/17 10:03/19/17 10:03/19/17 10:01 - General physical appearance Present: well developed, no distress. Absent: severe pain, jaundice - Eyes Absent: icteric - Neck Present: no lymphadenopathy - Respiratory Present: normal respiratory effort, clear to auscultation - Cardiovascular Cardiovascular exam IM: RRR - Abdomen Abdomen: Present: soft. Absent: masses, suprapubic tenderness - Genitourinary normal penis with no external lesions - Integumentary Present: no rash, no abnormal pigmentation. Absent: lesions - Neurologic Present: normal coordination. Absent: confused Urology Results - Labs 03/21/17 05:40 03/21/17 05:40 Abnormal lab results RBC 2.85 M/mcL (4.19-5.50) L 03/21/17 05:40 Hgb 8.1 g/dL (12.9-16.9) L 03/21/17 05:40 Hct 25.4 % (37.5-50.1) L 03/21/17 05:40 MPV 9.3 fL (9.4-12.4) L 03/21/17 05:40 Lymphocytes # 0.3 K/mcL (0.6-4.6) L 03/21/17 05:40 D-Dimer 1193 ng/mLFEU (0-500) H 03/19/17 17:05 Chloride 110 mEq/L (98-107) H 03/21/17 05:40 Carbon Dioxide 17 mEq/L (23-29) L 03/21/17 05:40 BUN 40 mg/dL (8-23) H 03/21/17 05:40 Creatinine 4.44 mg/dL (0.70-1.30) H 03/21/17 05:40 Est GFR ( Amer) 16 (> 60) L 03/21/17 05:40 Est GFR (Non-Af Amer) 13 (> 60) L 03/21/17 05:40 Glucose 111 mg/dL (70-105) H 03/21/17 05:40 POC Glucose 181 (58-89) H 03/20/17 16:05 Hemoglobin A1c 7.3 % (-5.6) H 03/20/17 05:38 Calcium 7.8 mg/dL (8.6-10.3) L 03/21/17 05:40 Iron < 10 mcg/dL (65-175) L 03/20/17 05:38 Transferrin 138 mg/dL (203-362) L 03/20/17 05:38 Ferritin > 1350 ng/ml (20-250) H 03/20/17 05:38 Serum Total Protein 5.8 g/dL (6.4-8.9) L 03/21/17 05:40 Albumin 2.8 g/dL (3.5-5.7) L 03/21/17 05:40 Albumin/Globulin Ratio 0.9 (1.1-2.2) L 03/21/17 05:40 Triglycerides 198 mg/dL (< 150) H 03/20/17 05:38 VLDL Cholesterol, Calc 40 mg/dL (< 31) H 03/20/17 05:38 HDL Cholesterol 21 mg/dL (40-59) L 03/20/17 05:38 Cholesterol/HDL Ratio 7.4 (0-4.9) H 03/20/17 05:38 Urine Clarity Turbid (Clear) A 03/19/17 15:35 Urine Protein 100 mg/dL (Neg-Trace) H 03/19/17 15:35 Urine Blood Large (Negative) H 03/19/17 15:35 Ur Leukocyte Esterase Large (Negative) H 03/19/17 15:35 Urine Microscopic RBC 3-5 per hpf (0-3) H 03/19/17 15:35 Urine Microscopic WBC TNTC per hpf (0-3) H 03/19/17 15:35 Ur Squamous Epith Cells Many per lpf (None-Few) H 03/19/17 15:35 Influenza A (H3) PCR DETECTED (Not Detect) A 03/19/17 14:50 Diabetes panel 03/21/17 Range/Units 05:40 Sodium 136 (136-145) mEq/L Potassium 3.5 (3.5-5.1) mEq/L Chloride 110 H (98-107) mEq/L Carbon Dioxide 17 L (23-29) mEq/L BUN 40 H (8-23) mg/dL Creatinine 4.44 H (0.70-1.30) mg/dL Glucose 111 H (70-105) mg/dL Calcium 7.8 L (8.6-10.3) mg/dL AST 13 (13-39) Units/L ALT 11 (7-52) Units/L Alkaline Phosphatase 49 (34-104) Units/L Albumin 2.8 L (3.5-5.7) g/dL Calcium panel 03/21/17 Range/Units 05:40 Calcium 7.8 L (8.6-10.3) mg/dL Phosphorus 3.8 (2.7-4.5) mg/dL Albumin 2.8 L (3.5-5.7) g/dL Pituitary panel 03/21/17 Range/Units 05:40 Sodium 136 (136-145) mEq/L Potassium 3.5 (3.5-5.1) mEq/L Chloride 110 H (98-107) mEq/L Carbon Dioxide 17 L (23-29) mEq/L BUN 40 H (8-23) mg/dL Creatinine 4.44 H (0.70-1.30) mg/dL Glucose 111 H (70-105) mg/dL Calcium 7.8 L (8.6-10.3) mg/dL Adrenal panel 03/21/17 Range/Units 05:40 Sodium 136 (136-145) mEq/L Potassium 3.5 (3.5-5.1) mEq/L Chloride 110 H (98-107) mEq/L Carbon Dioxide 17 L (23-29) mEq/L BUN 40 H (8-23) mg/dL Creatinine 4.44 H (0.70-1.30) mg/dL Glucose 111 H (70-105) mg/dL Calcium 7.8 L (8.6-10.3) mg/dL Total Bilirubin 0.3 (0.3-1.0) mg/dL AST 13 (13-39) Units/L ALT 11 (7-52) Units/L Alkaline Phosphatase 49 (34-104) Units/L Albumin 2.8 L (3.5-5.7) g/dL All other labs normal. - Imaging US - abdomen: image reviewed Consult Discharge Plan - Plan Referrals: Saleem Ramirez DO [Primary Care Provider] - 03/29/17 1:00 pm (Please follow up as schedule...)
--- NOTE | 2017-03-21 14:36 | Internal Med Progress Note ---
Date of Encounter: 03/21/17 Time of Encounter: 14:35 - Assessment and plan (1) Acute kidney injury superimposed on chronic kidney disease Current Visit: Yes Status: Acute Assessment and plan: likely prerenal in the setting of influenza with decreased PO intake nephrology on board and consultation appreciated will continue IV fluids (noted to have worsening NAGMA), will d/c NS and start 3amp of bicarb in d5w at 125cc/hr Urology evaluation on board and consultation appreciated (2) Influenza Current Visit: Yes Status: Acute Assessment and plan: Pt recently had four days of Tamiflu prior to hospitalization will continue supportive care at this time IV fluids, bronchodilator support, tyelnol as needed (3) Generalized weakness Current Visit: Yes Status: Acute Assessment and plan: secondary to underlying influenza continue supportive care (4) Intractable nausea and vomiting Current Visit: Yes Status: Acute Assessment and plan: continue supportive care anti-emetics as needed Qualifiers: Vomiting type: unspecified Qualified Code(s): R11.2 - Nausea with vomiting , unspecified (5) SOB (shortness of breath) Current Visit: Yes Status: Resolved Assessment and plan: resolved at this time (6) Anemia Current Visit: Yes Status: Chronic Assessment and plan: history of anemia of chronic disease secondary to CKD continue Aranesp as per nephrology H&H low but acceptable will continue to closely monitor reported of having hematuria overnight however none reported today, urology on board Qualifiers: Anemia type: other cause Other causes of anemia: other cause, not classified Qualified Code(s): D64.89 - Other specified anemias (7) Diabetes Current Visit: Yes Status: Chronic Assessment and plan: continue home dose of levemir sliding scale insulin algorithm as needed monitor FS and BG ADA diet Qualifiers: Diabetes mellitus type: type 2 Diabetes mellitus complication status: with unspecified complications 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 REports of feeling better than previous day. Reported to have hematuria overnight, resolved at this time. Urology on board. - Constitutional Vitals: Temp Pulse Resp BP Pulse Ox 98.0 F 80 16 123/65 99 03/21/17 11:18 03/21/17 11:18 03/21/17 11:18 03/21/17 11:18 03/21/17 11:18 General appearance: Present: cooperative, pleasant, no acute distress, obese, answers questions appropriately - Head Head exam: Present: atraumatic, normocephalic - Eye Eye exam: Present: conjuntiva pink, sclera anicteric - Respiratory Respiratory exam: Present: CTAB. Absent: accessory muscle use, rales, rhonchi, wheezes - Cardiovascular Cardiovascular exam: Present: RRR, +S1, +S2. Absent: diastolic murmur, gallop, rubs, systolic murmur - GI/Abdominal GI/Abdominal exam: Present: normal bowel sounds, soft, no peritoneal signs. Absent: distended, tenderness - Extremities Exam Extremities exam: Present: warm, radial pulses palpable and symmetrical. Absent : calf tenderness, pedal edema - Neurological Exam Neurological exam: Present: alert, oriented X3 - Psychiatric Psychiatric exam: Present: normal affect, normal mood Internal Medicine: Result - Labs CBC & Chem 7: 03/21/17 05:40 03/21/17 05:40 Labs: Short CBC 03/21/17 Range/Units 05:40 WBC 7.3 (4.3-11.1) K/mcL Hgb 8.1 L (12.9-16.9) g/dL Hct 25.4 L (37.5-50.1) % Plt Count 262 (140-400) K/mcL Neutrophils # 5.9 (1.6-8.9) K/mcL BMP 03/21/17 05:40 Sodium 136 Potassium 3.5 Chloride 110 H Carbon Dioxide 17 L BUN 40 H Creatinine 4.44 H Glucose 111 H Calcium 7.8 L Liver Function 03/21/17 Range/Units 05:40 Total Bilirubin 0.3 (0.3-1.0) mg/dL AST 13 (13-39) Units/L ALT 11 (7-52) Units/L Alkaline Phosphatase 49 (34-104) Units/L Albumin 2.8 L (3.5-5.7) g/dL - ABG Interpretation ABG results: PT/INR, D-dimer D-Dimer 1193 ng/mLFEU (0-500) H 03/19/17 17:05 Consult Discharge Plan - Plan Referrals: Saleem Ramirez DO [Primary Care Provider] - 03/29/17 1:00 pm (Please follow up as schedule...)
[2017-03-21] MEDS: *HR* Heparin 5,000 UNIT/ML VIAL SQ SCH ×2 (14:49→22:13)
[2017-03-21] MEDS: Sodium Bicarbonate 150 MEQ in D5% in Water 1,000 ML IVC SCH ×2 (14:50→23:33)
[2017-03-21] MEDS: Insulin DETEMIR 100 UNIT/ML X5UNITS SQ SCH (22:12)
[2017-03-22] MEDS: *HR* Heparin 5,000 UNIT/ML VIAL SQ SCH ×3 (00:49→23:03)
[2017-03-22 02:55] LABS: Bilirubin,Urine Negative (Negative); Blood,Urine Large (Negative); Clarity,Urine Turbid (Clear); Color,Urine Yellow (Yellow); Glucose,Urine (UA) Normal (Normal); Ketones,Urine Negative (Negative); Leukocyte Esterase,Urine Large (Negative); Nitrite,Urine Negative (Negative); PH,Urine 6.5 pH Units (5.0-8.0); Protein,Urine 100 mg/dL (Neg-Trace); Specific Gravity,Urine 1.013 (1.010-1.025); Urobilinogen,Urine Normal (Normal)
[2017-03-22 02:57] LABS: WBC,Urine TNTC per hpf (0-3)
[2017-03-22 03:25] LABS: Bacteria,Urine Present per hpf (None-Few); RBC,Urine Present per hpf (0-3); Squamous Epithelial Cell,Urine Present per lpf (None-Few)
[2017-03-22] MEDS: Ondansetron 4 MG/2 ML VIAL IVP PRN ×3 (03:33→23:13)
[2017-03-22] MEDS: Acetaminophen 325 MG TABLET PO PRN ×2 (03:34→15:38)
[2017-03-22] MEDS: Ipratropium/Albuterol Neb 3 ML IH SCH ×4 (03:45→21:25)
[2017-03-22] MEDS ORDERED: cefTRIAXone 1,000 MG in Water for inj. (sterile) 10 ML IVPB SCH (05:00)
[2017-03-22 06:46] LABS: Basophils % 0.1 %; Eosinophils # 0.1 K/mcL (0.0-0.6); Eosinophils % 0.7 %; Hematocrit 22.5 % (37.5-50.1); Hemoglobin 7.5 g/dL (12.9-16.9); Immature Granulocytes % 0.6 % (0-4); Lymphocytes # 0.3 K/mcL (0.6-4.6); Mean Corpuscular HGB Conc 33.3 g/dL (31.6-35.5); Mean Corpuscular Hemoglobin 28.5 pg (28.0-33.3); Mean Corpuscular Volume 85.6 fL (83.0-100.0); Mean Platelet Volume 9.1 fL (9.4-12.4); Monocytes # 0.6 K/mcL (0.0-1.3); Monocytes % 8.8 %; Neutrophils # 6.1 K/mcL (1.6-8.9); Platelet Count 255 K/mcL (140-400); Red Blood Count 2.63 M/mcL (4.19-5.50); Red Cell Distribution Width 14.2 % (11.5-14.5); Segmented Neutrophils % 85.8 %
[2017-03-22 07:03] LABS: Albumin 2.5 g/dL (3.5-5.7); Albumin/Globulin Ratio 0.9 (1.1-2.2); Bilirubin,Total 0.3 mg/dL (0.3-1.0); Calcium 7.3 mg/dL (8.6-10.3); Globulin 2.8 g/dL (2.4-3.5); Magnesium 1.5 mg/dL (1.6-2.6); Phosphorous 3.4 mg/dL (2.7-4.5); Potassium 3.5 mEq/L (3.5-5.1); Total Protein 5.3 g/dL (6.4-8.9)
[2017-03-22] MEDS: Folic Acid 1 MG TABLET PO SCH (08:35)
[2017-03-22] MEDS: Sodium Bicarbonate 150 MEQ in D5% in Water 1,000 ML IVC SCH ×2 (08:36→18:57)
[2017-03-22] MEDS: Lactobacillus 1 EACH CAP.SPRINK PO SCH (08:36)
[2017-03-22] MEDS: Cholecalciferol (D-3) 1,000 UNIT TABLET PO SCH (08:36)
[2017-03-22] MEDS: Insulin LISPRO 300 UNITS/3 ML VIAL SQ SCH ×7 (08:43→23:16)
[2017-03-22] MEDS ORDERED: Magnesium Sulfate 1 GM in 0.9 % Sodium Chloride 50 ML IVPB ONE (08:57)
--- NOTE | 2017-03-22 09:25 | Nephrology Progress Note ---
Date of Encounter: 03/22/17 Time of Encounter: 09:23 - Assessment and Plan (1) APOORVA (acute kidney injury) Current Visit: No Status: Acute The patient has acute kidney injury superimposed on stage IV chronic kidney disease in the setting of influenza infection with associated decreased oral intake and volume depletion. The patient's renal function is not deteriorating. Likely this is related to poor function of the ureteral stents. Patient may require bilateral nephrostomy tubes. He also needs to have urine and blood recultured and likely needs to be started on empiric antibiotics. (2) Chronic kidney disease, stage III (moderate) Current Visit: No Status: Acute (3) Influenza Current Visit: Yes Status: Acute (4) Prostate CA Current Visit: No Status: Chronic Subjective Interval history: The patient has been febrile up to 101.7. His renal function is worse. CT scan of the abdomen confirms bilateral hydronephrosis despite bilateral ureteral stents. The patient is passing urine that appears purulent. Objective - Vital Signs Vital signs: Vital Signs Temp Pulse Resp BP Pulse Ox 03/22/17 07:47 98.1 F 79 16 138/72 94 03/22/17 04:22 101.7 F H 82 16 133/71 94 03/21/17 21:14 14 98 03/21/17 20:01 100.4 F H 95 16 120/68 90 03/21/17 16:28 98.7 F 89 16 134/70 97 03/21/17 16:05 18 92 03/21/17 11:18 98.0 F 80 16 123/65 99 03/21/17 11:12 18 93 Intake and Output 03/21/17 03/22/17 03/22/17 23:59 07:59 15:59 Intake Total 1770 / 1770 810 / 810 1150 / 1150 Output Total 730 / 730 Balance 1040 / 1040 810 / 810 1150 / 1150 Intake: IV Fluids 1000 / 1000 10 / 10 1150 / 1150 Sodium Bicarbonate 150 MEQ In 1000 / 1000 1150 / 1150 Dextrose 5% 1,000 ML @ 125 mls/ hr IVC .Q9H12M [facility] Rx#: [id number] Rocephin 1,000 MG In Water for inj. (sterile) 10 ML @ 200 mls/ hr IVPB Q24H [facility] Rx#:[id number] Oral 770 / 770 800 / 800 Output: Urine 705 / 705 Emesis Other: Weight 108.3 kg Blood Glucose* 111 236 Patient Weight 03/22/17 23:59 Weight 108.3 kg - General Appearance Exam: Patient is in no acute distress. He is alert. He appears chronically ill. Lungs diminished breath sounds otherwise clear. Heart regular rate and rhythm. Abdomen is benign. There is some mild lower extremity swelling. - Lab 03/22/17 06:31 03/22/17 06:31 Most recent lab results Calcium 7.3 mg/dL (8.6-10.3) L 03/22/17 06:31 Phosphorus 3.4 mg/dL (2.7-4.5) 03/22/17 06:31 Magnesium 1.5 mg/dL (1.6-2.6) L 03/22/17 06:31 Consult Discharge Plan - Plan Referrals: Saleem Ramirez DO [Primary Care Provider] - 03/29/17 1:00 pm (Please follow up as schedule...)
--- NOTE | 2017-03-22 10:09 | Urology Progress Note ---
Date of Encounter: 03/22/17 Time of Encounter: 10:06 - Assessment and Plan (1) Acute kidney injury superimposed on chronic kidney disease Current Visit: Yes Status: Acute Assessment and plan: I discussed with the patient and his regarding treatment options for diverting patient's urine. I believe the best course of action at this time will be to have the patient received bilateral nephrostomy tubes. This could immediately draining the patient's kidneys and start improving his serum creatinine. He also has had low-grade fevers which could be indicative of pyonephrosis given the CT scan showing hydronephrosis last night. (2) Hydronephrosis Current Visit: No Status: Acute Qualifiers: Hydronephrosis type: other Qualified Code(s): N13.39 - Other hydronephrosis (3) Prostate cancer Current Visit: No Status: Acute Progress Note Narrative: Faustino is a 66 y/o male with history of locally advanced prostate cancer status post radiation. Patient has bilateral metal stents in place. These appear to be failing as the patient's creatinine is continuing to rise. Objective Initial Vital Signs Temp Pulse Resp BP Pulse Ox 99.7 F H 74 18 134/83 94 03/19/17 10:01 03/19/17 10:01 03/19/17 10:01 03/19/17 10:01 03/19/17 10:01 - General physical appearance Present: well developed - Abdomen Present: soft - Labs 03/22/17 06:31 03/22/17 06:31 Diabetes panel 03/22/17 Range/Units 06:31 Sodium 133 L (136-145) mEq/L Potassium 3.5 (3.5-5.1) mEq/L Chloride 105 (98-107) mEq/L Carbon Dioxide 20 L (23-29) mEq/L BUN 40 H (8-23) mg/dL Creatinine 5.71 H (0.70-1.30) mg/dL Glucose 221 H (70-105) mg/dL Calcium 7.3 L (8.6-10.3) mg/dL AST 9 L (13-39) Units/L ALT 9 (7-52) Units/L Alkaline Phosphatase 44 (34-104) Units/L Albumin 2.5 L (3.5-5.7) g/dL Calcium panel 03/22/17 Range/Units 06:31 Calcium 7.3 L (8.6-10.3) mg/dL Phosphorus 3.4 (2.7-4.5) mg/dL Albumin 2.5 L (3.5-5.7) g/dL Pituitary panel 03/22/17 Range/Units 06:31 Sodium 133 L (136-145) mEq/L Potassium 3.5 (3.5-5.1) mEq/L Chloride 105 (98-107) mEq/L Carbon Dioxide 20 L (23-29) mEq/L BUN 40 H (8-23) mg/dL Creatinine 5.71 H (0.70-1.30) mg/dL Glucose 221 H (70-105) mg/dL Calcium 7.3 L (8.6-10.3) mg/dL Adrenal panel 03/22/17 Range/Units 06:31 Sodium 133 L (136-145) mEq/L Potassium 3.5 (3.5-5.1) mEq/L Chloride 105 (98-107) mEq/L Carbon Dioxide 20 L (23-29) mEq/L BUN 40 H (8-23) mg/dL Creatinine 5.71 H (0.70-1.30) mg/dL Glucose 221 H (70-105) mg/dL Calcium 7.3 L (8.6-10.3) mg/dL Total Bilirubin 0.3 (0.3-1.0) mg/dL AST 9 L (13-39) Units/L ALT 9 (7-52) Units/L Alkaline Phosphatase 44 (34-104) Units/L Albumin 2.5 L (3.5-5.7) g/dL Consult Discharge Plan - Plan Referrals: Saleem Ramirez DO [Primary Care Provider] - 03/29/17 1:00 pm (Please follow up as schedule...)
[2017-03-22 10:13] LABS: Hematocrit 24.4 % (37.5-50.1); Hemoglobin 7.9 g/dL (12.9-16.9)
[2017-03-22 10:19] LABS: INR 1.2; Prothrombin Time 13.2 Seconds (9.4-12.1)
[2017-03-22 10:21] LABS: Activated Partial Thrombo Time 30.7 Seconds (26.0-36.0)
[2017-03-22] MEDS ORDERED: *HR* Midazolam HCl 2 MG/2 ML VIAL IVP ONE (13:45)
[2017-03-22] MEDS ORDERED: *HR* FentaNYL (PF) 100 MCG/2 ML VIAL IVP ONE (13:46)
[2017-03-22] MEDS ORDERED: 0.9 % Sodium Chloride 500 ML ONE ×2 (14:14→14:16)
[2017-03-22] MEDS ORDERED: Ampicillin/Sulbactam 1,500 MG in 0.9 % Sodium Chloride Mini Bag 100 ML IVPB ONE (14:44)
[2017-03-22] MEDS ORDERED: *HR* Promethazine 25 MG/ML VIAL IVP ONE (14:53)
[2017-03-22] MEDS ORDERED: *HR* Promethazine 25 MG/ML VIAL ONE (14:53)
[2017-03-22] MEDS ORDERED: Vancomycin 1,500 MG in D5% in Water 250 ML IVPB ONE (15:14)
--- NOTE | 2017-03-22 15:23 | Pre-Sedation Evaluation ---
Pre-sedation evaluation - Pre-sedation checklist Date of procedure: 03/22/17 Procedure: bilateral neph tube insertion Recent Vitals: Last Vital Signs Temp 98.1 F 03/22/17 07:47 Pulse 85 03/22/17 14:42 Resp 16 03/22/17 14:42 BP 132/83 03/22/17 14:42 Pulse Ox 96 03/22/17 14:42 H&P (including ROS) documented in medical record: Yes Previous reaction to sedatives/anesthetics: No Dietary Status: NPO 6 hours prior to procedure Dentition: No loose teeth or bridges ASA Classification *see protocol: CLASS III-Severe systemic disease Plan of Care: Pt appropriate candidate for procedure/moderate/conscious sedation , Risks/benefits of procedure/sedation discussed w/ patient/family
--- NOTE | 2017-03-22 15:25 | IR Procedure Note ---
Date of procedure: 03/22/17 Consent Obtained: Written consent Timeout: Correct patient and procedure verified, Time out performed, Skin prep completed Local anesthetic: Lidocaine 1% Indications: Obstructive uropathy Procedure Performed: Bilater nephrostomy placement Was there an players assistant present: No Results/Findings: left pyonephrosis, 10F bilateral PCN placement Estimated blood loss (cc): 15 Complications: None; Tolerated procedure well Post Procedure Treatment Plan: Close observation, concern for urosepsis Specimen: urine sample
[2017-03-22] MEDS ORDERED: Vancomycin 1 EACH in D5% in Water 250 ML IVPB PRN (16:00)
[2017-03-22 16:27] LABS: Urine Specimen Comments Mucoid Specimen
[2017-03-22 16:28] LABS: RBC,Urine Present per hpf (0-3); WBC,Urine Present per hpf (0-3)
--- NOTE | 2017-03-22 16:36 | Internal Med Progress Note ---
Date of Encounter: 03/22/17 Time of Encounter: 13:56 - Assessment and plan (1) Acute kidney injury superimposed on chronic kidney disease Current Visit: Yes Status: Acute Assessment and plan: secondary to poorly functioning ureteral stents urology and nephrology on board and consultations appreciated scheduled for bilateral nephrostomy tubes placement will empirically start Vanc and zosyn f/u urine and blood cultures concern for urosepsis (2) Influenza Current Visit: Yes Status: Acute Assessment and plan: Pt recently had four days of Tamiflu prior to hospitalization will continue supportive care at this time IV fluids, bronchodilator support, tyelnol as needed (3) Generalized weakness Current Visit: Yes Status: Acute Assessment and plan: secondary to underlying influenza continue supportive care (4) Intractable nausea and vomiting Current Visit: Yes Status: Acute Assessment and plan: continue supportive care anti-emetics as needed Qualifiers: Vomiting type: unspecified Qualified Code(s): R11.2 - Nausea with vomiting , unspecified (5) SOB (shortness of breath) Current Visit: Yes Status: Resolved Assessment and plan: resolved at this time (6) Anemia Current Visit: Yes Status: Chronic Assessment and plan: history of anemia of chronic disease secondary to CKD continue Aranesp as per nephrology H&H low but acceptable will continue to closely monitor Qualifiers: Anemia type: other cause Other causes of anemia: other cause, not classified Qualified Code(s): D64.89 - Other specified anemias (7) Diabetes Current Visit: Yes Status: Chronic Assessment and plan: continue home dose of levemir sliding scale insulin algorithm as needed monitor FS and BG ADA diet Qualifiers: Diabetes mellitus type: type 2 Diabetes mellitus complication status: with unspecified complications Diabetes mellitus half-way insulin use: unspecified 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 Noted to have increase in creatinine and purulent urine Pt scheduled for nephrosotomy tubes placement today. will broaden IV abx - Constitutional Vitals: Temp Pulse Resp BP Pulse Ox 98.8 F 85 16 132/83 96 03/22/17 16:31 03/22/17 14:42 03/22/17 14:42 03/22/17 14:42 03/22/17 14:42 General appearance: Present: cooperative, pleasant, no acute distress, obese, answers questions appropriately - Head Head exam: Present: atraumatic, normocephalic - Eye Eye exam: Present: conjuntiva pink, sclera anicteric - Respiratory Respiratory exam: Absent: respiratory distress, wheezes - Cardiovascular Cardiovascular exam: Present: RRR, +S1, +S2. Absent: diastolic murmur, gallop, rubs, systolic murmur - GI/Abdominal GI/Abdominal exam: Present: normal bowel sounds, soft, no peritoneal signs. Absent: distended, tenderness - Extremities Exam Extremities exam: Present: warm, radial pulses palpable and symmetrical. Absent : calf tenderness - Neurological Exam Neurological exam: Present: alert, oriented X3 Internal Medicine: Result - Labs CBC & Chem 7: 03/22/17 09:59 03/22/17 06:31 Labs: Short CBC 03/22/17 03/22/17 Range/Units 06:31 09:59 WBC 7.1 (4.3-11.1) K/mcL Hgb 7.5 L 7.9 L (12.9-16.9) g/dL Hct 22.5 L 24.4 L (37.5-50.1) % Plt Count 255 (140-400) K/mcL Neutrophils # 6.1 (1.6-8.9) K/mcL BMP 03/22/17 06:31 Sodium 133 L Potassium 3.5 Chloride 105 Carbon Dioxide 20 L BUN 40 H Creatinine 5.71 H Glucose 221 H Calcium 7.3 L Liver Function 03/22/17 Range/Units 06:31 Total Bilirubin 0.3 (0.3-1.0) mg/dL AST 9 L (13-39) Units/L ALT 9 (7-52) Units/L Alkaline Phosphatase 44 (34-104) Units/L Albumin 2.5 L (3.5-5.7) g/dL Urine 03/22/17 Range/Units 00:46 Urine Color Yellow (Yellow) Urine Clarity Turbid A (Clear) Urine pH 6.5 (5.0-8.0) pH Units Ur Specific Purlear 1.013 (1.010-1.025) Urine Protein 100 H (Neg-Trace) mg/dL Urine Glucose (UA) Normal (Normal) mg/dL - ABG Interpretation ABG results: PT/INR, D-dimer PT 13.2 Seconds (9.4-12.1) H 03/22/17 09:59 D-Dimer 1193 ng/mLFEU (0-500) H 03/19/17 17:05 - Impressions Impressions Abdomen/Pelvis CT 03/22/17 00:36 IMPRESSION: Bilateral hydroureteronephrosis despite the presence of bilateral stents. Perinephric stranding bilaterally could be due to obstruction or infection. The appearance the bladder is consistent with cystitis. D/ / Tanmay Chacko MD / Tanmay Chacko MD Interpreting Provider: Tanmay Chacko MD Consult Discharge Plan - Plan Referrals: Saleem Ramirez DO [Primary Care Provider] - 03/29/17 1:00 pm (Please follow up as schedule...)
[2017-03-22 16:43] LABS: Basophils % 0.3 %; Eosinophils # 0.1 K/mcL (0.0-0.6); Eosinophils % 1.3 %; Hemoglobin 8.4 g/dL (12.9-16.9); Immature Granulocytes % 3.4 % (0-4); Lymphocytes # 0.2 K/mcL (0.6-4.6); Mean Corpuscular HGB Conc 32.3 g/dL (31.6-35.5); Mean Corpuscular Hemoglobin 28.3 pg (28.0-33.3); Mean Corpuscular Volume 87.5 fL (83.0-100.0); Mean Platelet Volume 9.1 fL (9.4-12.4); Monocytes # 0.2 K/mcL (0.0-1.3); Monocytes % 4.7 %; Neutrophils # 3.3 K/mcL (1.6-8.9); Nucleated Red Blood Cells 0.5 /100 WBC (0); Platelet Count 206 K/mcL (140-400); Red Blood Count 2.97 M/mcL (4.19-5.50); Segmented Neutrophils % 86.3 %
[2017-03-22] MEDS ORDERED: 0.9 % Sodium Chloride 1,000 ML IVC SCH (16:45)
[2017-03-22] MEDS ORDERED: Acetaminophen IV 1,000 MG/100 ML INFUS..BTL IVPB ONE (17:06)
[2017-03-22] MEDS ORDERED: Levofloxacin 500 MG/100 ML 500 MG/100 ML BAG IVPB ONE (18:00)
[2017-03-22] MEDS ORDERED: *HR* Metoprolol 5 MG/5 ML VIAL IVP PRN (18:56)
[2017-03-22] MEDS ORDERED: 0.9 % Sodium Chloride 1,000 ML ONE (22:56)
[2017-03-22] MEDS: Insulin DETEMIR 100 UNIT/ML X5UNITS SQ SCH (23:15)
[2017-03-23] MEDS ORDERED: 0.9 % Sodium Chloride 1,000 ML IVC ONE (00:04)
[2017-03-23] MEDS ORDERED: *HR* Metoprolol 5 MG/5 ML VIAL IVP PRN (00:39)
[2017-03-23] MEDS ORDERED: Naloxone 0.4 MG/ML INJ IVP PRN (00:39)
[2017-03-23] MEDS ORDERED: Vancomycin 1 EACH in D5% in Water 250 ML IVPB PRN (00:39)
[2017-03-23] MEDS ORDERED: *HR* Dextrose 50 % in Water (Syg) 50 ML SYRINGE IVP PRN (00:39)
[2017-03-23] MEDS ORDERED: D5% in Water 1,000 ML IVC PRN (00:39)
[2017-03-23] MEDS ORDERED: Dextrose Gel 15 GM/37.5 ML TUBE PO PRN ×2 (00:39)
[2017-03-23] MEDS: 0.9 % Sodium Chloride 1,000 ML IVC ONE ×2 (01:14→04:10)
[2017-03-23] MEDS: *HR* OxyCODONE Immed Rel 5 MG TABLET PO PRN ×3 (01:24→19:34)
[2017-03-23] MEDS: Ipratropium/Albuterol Neb 3 ML IH SCH ×4 (04:17→20:09)
[2017-03-23 04:57] LABS: Albumin 2.4 g/dL (3.5-5.7); Albumin/Globulin Ratio 0.8 (1.1-2.2); Bilirubin,Total 0.3 mg/dL (0.3-1.0); Calcium 7.1 mg/dL (8.6-10.3); Potassium 3.9 mEq/L (3.5-5.1); Total Protein 5.4 g/dL (6.4-8.9)
[2017-03-23] MEDS: *HR* Heparin 5,000 UNIT/ML VIAL SQ SCH ×3 (07:07→22:03)
--- NOTE | 2017-03-23 07:17 | Urology Progress Note ---
Date of Encounter: 03/23/17 Time of Encounter: 07:16 - Assessment and Plan (1) Acute kidney injury superimposed on chronic kidney disease Current Visit: Yes Status: Acute Assessment and plan: Serum creatinine worsening. I believe this could be a temporary worsening given the septic shower the patient had yesterday. I will defer to nephrology for any further recommendations regarding patient's serum creatinine. (2) Hydronephrosis Current Visit: No Status: Acute Assessment and plan: Patient is now status post drainage with bilateral nephrostomy tubes. These will need to stay in place. Qualifiers: Hydronephrosis type: other Qualified Code(s): N13.39 - Other hydronephrosis (3) Prostate cancer Current Visit: No Status: Acute Progress Note Narrative: Patient seen. patient had septic shower after bilateral pcn tube placement patient was transferred to [address] [place] [address]. He states he does feel slightly better today compared to yesterday evening. Serum creatinine did unfortunately go the wrong way up to above 6 but the patient has had good urine output. Objective Initial Vital Signs Temp Pulse Resp BP Pulse Ox 99.7 F H 74 18 134/83 94 03/19/17 10:01 03/19/17 10:01 03/19/17 10:01 03/19/17 10:01 03/19/17 10:01 - General physical appearance Present: well developed - Abdomen Present: soft - Genitourinary Present: other (Clear urine in both nephrostomy tubes) - Labs 03/22/17 16:30 03/23/17 03:41 Diabetes panel 03/23/17 Range/Units 03:41 Sodium 137 (136-145) mEq/L Potassium 3.9 (3.5-5.1) mEq/L Chloride 106 (98-107) mEq/L Carbon Dioxide 20 L (23-29) mEq/L BUN 41 H (8-23) mg/dL Creatinine 6.23 H (0.70-1.30) mg/dL Glucose 196 H (70-105) mg/dL Calcium 7.1 L (8.6-10.3) mg/dL AST 12 L (13-39) Units/L ALT 11 (7-52) Units/L Alkaline Phosphatase 47 (34-104) Units/L Albumin 2.4 L (3.5-5.7) g/dL Calcium panel 03/23/17 Range/Units 03:41 Calcium 7.1 L (8.6-10.3) mg/dL Albumin 2.4 L (3.5-5.7) g/dL Pituitary panel 03/23/17 Range/Units 03:41 Sodium 137 (136-145) mEq/L Potassium 3.9 (3.5-5.1) mEq/L Chloride 106 (98-107) mEq/L Carbon Dioxide 20 L (23-29) mEq/L BUN 41 H (8-23) mg/dL Creatinine 6.23 H (0.70-1.30) mg/dL Glucose 196 H (70-105) mg/dL Calcium 7.1 L (8.6-10.3) mg/dL Adrenal panel 03/23/17 Range/Units 03:41 Sodium 137 (136-145) mEq/L Potassium 3.9 (3.5-5.1) mEq/L Chloride 106 (98-107) mEq/L Carbon Dioxide 20 L (23-29) mEq/L BUN 41 H (8-23) mg/dL Creatinine 6.23 H (0.70-1.30) mg/dL Glucose 196 H (70-105) mg/dL Calcium 7.1 L (8.6-10.3) mg/dL Total Bilirubin 0.3 (0.3-1.0) mg/dL AST 12 L (13-39) Units/L ALT 11 (7-52) Units/L Alkaline Phosphatase 47 (34-104) Units/L Albumin 2.4 L (3.5-5.7) g/dL Consult Discharge Plan - Plan Referrals: Saleem Ramirez DO [Primary Care Provider] - 03/29/17 1:00 pm (Please follow up as schedule...)
[2017-03-23] MEDS ORDERED: Aminoglycoside Consult 1 EACH MC ONE (08:31)
[2017-03-23 08:52] LABS: Basophils % 0.2 %; Eosinophils % 0.2 %; Hematocrit 24.9 % (37.5-50.1); Hemoglobin 7.8 g/dL (12.9-16.9); Immature Granulocytes % 0.7 % (0-4); Immature Platelets 0.8 % (1.1-6.1); Lymphocytes # 0.1 K/mcL (0.6-4.6); Lymphocytes % 0.9 %; Mean Corpuscular HGB Conc 31.3 g/dL (31.6-35.5); Mean Corpuscular Hemoglobin 28.1 pg (28.0-33.3); Mean Corpuscular Volume 89.6 fL (83.0-100.0); Mean Platelet Volume 9.1 fL (9.4-12.4); Monocytes # 0.5 K/mcL (0.0-1.3); Monocytes % 3.4 %; Neutrophils # 12.5 K/mcL (1.6-8.9); Platelet Count 353 K/mcL (140-400); Red Blood Count 2.78 M/mcL (4.19-5.50); Red Cell Distribution Width 14.4 % (11.5-14.5); Segmented Neutrophils % 94.6 %
[2017-03-23] MEDS ORDERED: Micafungin 100 MG in 0.9 % Sodium Chloride Mini Bag 100 ML IVPB SCH (09:00)
[2017-03-23] MEDS: Lactobacillus 1 EACH CAP.SPRINK PO SCH (09:10)
[2017-03-23] MEDS: Cholecalciferol (D-3) 1,000 UNIT TABLET PO SCH (09:10)
[2017-03-23] MEDS: Folic Acid 1 MG TABLET PO SCH (09:11)
[2017-03-23] MEDS: Insulin LISPRO 300 UNITS/3 ML VIAL SQ SCH ×7 (09:36→19:33)
--- NOTE | 2017-03-23 10:07 | Nephrology Progress Note ---
Date of Encounter: 03/23/17 Time of Encounter: 09:45 - Assessment and Plan (1) APOORVA (acute kidney injury) Current Visit: No Status: Acute APOORVA superimposed on CKD4. S/P bilateral neph tube exchange yesterday, followed by septic shower. Renal fct worse most likely related to these events. Creat 6.23. Will continue to monitor, continue IV hydration as alberto., I&O, avoid nephrotoxins. Subjective Interval history: Laying quietly, states somewhat better than yesterday, "but still feels like Nicole been hit by a truck." Objective - Vital Signs Vital signs: Vital Signs Temp Pulse Resp BP Pulse Ox 03/23/17 06:49 98.3 F 82 16 109/65 94 03/23/17 05:00 87 16 107/62 98 03/23/17 03:00 100.1 F H 91 18 112/70 98 03/23/17 02:00 101.0 F H 94 18 132/71 97 03/23/17 01:00 102.1 F H 98 18 139/75 98 03/23/17 00:25 106 03/23/17 00:15 102.2 F H 106 20 142/76 97 03/22/17 23:20 101.3 F H 106 18 136/73 99 03/22/17 22:45 102.6 F H 110 18 146/81 92 03/22/17 21:26 16 97 03/22/17 18:28 99.8 F H 97 18 121/71 97 03/22/17 17:58 102 F H 92 18 118/69 95 03/22/17 16:31 98.8 F 03/22/17 16:03 98.5 F 03/22/17 14:42 85 16 132/83 96 03/22/17 14:34 85 16 125/77 95 03/22/17 14:29 85 16 129/83 98 03/22/17 14:24 83 18 125/80 100 03/22/17 14:19 94 16 133/79 100 Intake and Output 03/22/17 03/23/17 03/23/17 23:59 07:59 15:59 Intake Total 200 / 200 1000 / 1000 120 / 120 Output Total 1235 / 1235 275 / 275 Balance -1035 / -1035 725 / 725 120 / 120 Intake: IV Fluids 200 / 200 1000 / 1000 0.9 % Sodium Chloride 1,000 ML 1000 / 1000 @ 0 mls/hr .ROUTE .STK-MED ONE Rx#:[id number] Ofirmev 1,000 mg/100 ml 1,000 100 / 100 mg In 100 ml @ 400 mls/hr IVPB ONCE ONE Rx#:[id number] Zosyn 3.375 GM In 0.9 % Sodium 100 / 100 Chloride 100 ML @ 25 mls/hr IVPB Q12H [facility] Rx#:[id number] Oral 120 / 120 Output: Wound Drainage 1235 / 1235 275 / 275 Left Back 580 / 580 125 / 125 Right Back 655 / 655 150 / 150 Other: Meal Breakfast Percent of Meal Consumed 100% Weight 109.2 kg Blood Glucose* 165 202 Patient Weight 03/23/17 23:59 Weight 109.2 kg - General Appearance General appearance: Present: well-developed, well-nourished, appears started age EENT: Present: mucous membranes moist Neck: Present: no JVD Respiratory: Present: clear Cardiology: Present: edema, regular rate, regular rhythm Additional Comments: trace pitting LE Gastrointestinal: Present: hypoactive bowel sounds, no guarding Integumentary: Present: warm and dry Neurologic: Present: alert and oriented x3 - Lab 03/23/17 08:28 03/23/17 03:41 Most recent lab results Calcium 7.1 mg/dL (8.6-10.3) L 03/23/17 03:41 Phosphorus 3.4 mg/dL (2.7-4.5) 03/22/17 06:31 Magnesium 1.5 mg/dL (1.6-2.6) L 03/22/17 06:31 Consult Discharge Plan - Plan Referrals: Saleem Ramirez DO [Primary Care Provider] - 03/29/17 1:00 pm (Please follow up as schedule...)
[2017-03-23 10:28] LABS: Hepatitis B Surface Antigen Nonreactive (Nonreactive)
[2017-03-23] MEDS: Ondansetron 4 MG/2 ML VIAL IVP PRN ×2 (12:26→22:34)
--- NOTE | 2017-03-23 12:52 | Internal Med Progress Note ---
Date of Encounter: 03/23/17 Time of Encounter: 09:26 - Assessment and plan (1) Pyonephrosis Current Visit: Yes Status: Acute Assessment and plan: remains high risk for sepsis currently afebrile s/p b/l nephrostomy tubes placement by IR(03/22/17) good urine output noted with clearance of pyouria urine culture prelim positive for Gram positive cocci and yeast species will discontinue vancomycin given impaired renal function start Linezolid continue Zosyn, and Micafungin will restart gentle IV fluid hydration and closely monitor for signs of volume overload (2) Acute kidney injury superimposed on chronic kidney disease Current Visit: Yes Status: Acute Assessment and plan: secondary to poorly functioning ureteral stents urology and nephrology on board and consultations appreciated s/p bilateral nephrostomy tubes placement (03/22/17) continue empiric IV abx f/u final urine and blood cultures concern for urosepsis (3) Influenza Current Visit: Yes Status: Acute Assessment and plan: Pt recently had four days of Tamiflu prior to hospitalization will continue supportive care at this time IV fluids, bronchodilator support, tyelnol as needed (4) Generalized weakness Current Visit: Yes Status: Acute Assessment and plan: secondary to underlying infection continue supportive care (5) Intractable nausea and vomiting Current Visit: Yes Status: Acute Assessment and plan: continue supportive care anti-emetics as needed Qualifiers: Vomiting type: unspecified Qualified Code(s): R11.2 - Nausea with vomiting , unspecified (6) SOB (shortness of breath) Current Visit: Yes Status: Resolved Assessment and plan: resolved at this time (7) Anemia Current Visit: Yes Status: Chronic Assessment and plan: history of anemia of chronic disease secondary to CKD continue Aranesp as per nephrology H&H low but acceptable will continue to closely monitor Qualifiers: Anemia type: other cause Other causes of anemia: other cause, not classified Qualified Code(s): D64.89 - Other specified anemias (8) Diabetes Current Visit: Yes Status: Chronic Assessment and plan: continue home dose of levemir sliding scale insulin algorithm as needed monitor FS and BG ADA diet Qualifiers: Diabetes mellitus type: type 2 Diabetes mellitus complication status: with unspecified complications Diabetes mellitus penitentiary insulin use: unspecified penitentiary insulin use status Qualified Code(s): E11.8 - Type 2 diabetes mellitus with unspecified complications (9) Hypertension Current Visit: No Status: Chronic Assessment and plan: BP within acceptable range Rate controlled despite holding cardizem will continue to closely monitor BP and HR Qualifiers: Hypertension type: essential hypertension Qualified Code(s): I10 - Essential (primary) hypertension (10) DVT prophylaxis Current Visit: Yes Status: Acute Assessment and plan: heparin SQ - Subjective Interval history: Patient seen and examined with present at bedside. pt was reported to have Tmax of 102.8, tachycardia, hypertensive. He was noted to have purulent drainage upon placement of left nephrostomy tube. Clinical presentation was consistent with septic shower. He was given broad spectrum IV abx, IV lopressor, and IV acetaminophen to which he responded appropriately. His fluids were placed on hold as he was noted to have bibasilar rales. Today patient is reported of feeling significantly better since yesterday evening. he is afebrile and noted to have good urine output through the b/l nephrostomy tubes. Noted to have worsening renal function, however chest is clear to auscultation, therefore will resume gentle IV fluid therapy. - Constitutional Vitals: Temp Pulse Resp BP Pulse Ox 98.2 F 86 18 112/59 96 03/23/17 10:54 03/23/17 10:54 03/23/17 10:54 03/23/17 10:54 03/23/17 10:54 General appearance: Present: cooperative, A&O X 3 (weak), pleasant, no acute distress, obese, answers questions appropriately - Head Head exam: Present: atraumatic, normocephalic - Eye Eye exam: Present: conjuntiva pink, sclera anicteric - Respiratory Respiratory exam: Absent: rales, respiratory distress, wheezes Additional comments: equal air entry bilaterally - Cardiovascular Cardiovascular exam: Present: RRR, +S1, +S2. Absent: diastolic murmur, gallop, rubs, systolic murmur - GI/Abdominal GI/Abdominal exam: Present: normal bowel sounds, soft, no peritoneal signs. Absent: distended, tenderness - Extremities Exam Extremities exam: Present: warm, radial pulses palpable and symmetrical. Absent : calf tenderness, pedal edema - Neurological Exam Neurological exam: Present: alert, oriented X3 Internal Medicine: Result - Labs CBC & Chem 7: 03/23/17 08:28 03/23/17 03:41 Labs: Short CBC 03/22/17 03/23/17 Range/Units 16:30 08:28 WBC 3.8 L 13.2 H D (4.3-11.1) K/mcL Hgb 8.4 L 7.8 L (12.9-16.9) g/dL Hct 26.0 L 24.9 L (37.5-50.1) % Plt Count 206 353 D (140-400) K/mcL Neutrophils # 3.3 12.5 H (1.6-8.9) K/mcL BMP 03/23/17 03:41 Sodium 137 Potassium 3.9 Chloride 106 Carbon Dioxide 20 L BUN 41 H Creatinine 6.23 H Glucose 196 H Calcium 7.1 L Liver Function 03/23/17 Range/Units 03:41 Total Bilirubin 0.3 (0.3-1.0) mg/dL AST 12 L (13-39) Units/L ALT 11 (7-52) Units/L Alkaline Phosphatase 47 (34-104) Units/L Albumin 2.4 L (3.5-5.7) g/dL - ABG Interpretation ABG results: PT/INR, D-dimer PT 13.2 Seconds (9.4-12.1) H 03/22/17 09:59 D-Dimer 1193 ng/mLFEU (0-500) H 03/19/17 17:05 - Impressions Impressions Guidance Needle Placement Ultrasound 03/22/17 00:00 IMPRESSION: 1. Bilateral hydronephrosis with left pyonephrosis. 2. Successful bilateral 10 [place] nephrostomy placement. D/ / Walt Ray MD / Walt Ray MD Interpreting Provider: Walt Ray MD Nephrostomy 03/22/17 00:00 IMPRESSION: 1. Bilateral hydronephrosis with left pyonephrosis. 2. Successful bilateral 10 [place]ian nephrostomy placement. D/ / Walt Ray MD / Walt Ray MD Interpreting Provider: Walt Ray MD Nephrostomy 03/22/17 00:00 IMPRESSION: 1. Bilateral hydronephrosis with left pyonephrosis. 2. Successful bilateral 10 [place]ian nephrostomy placement. D/ / Walt Ray MD / Walt Ray MD Interpreting Provider: Walt Ray MD Consult Discharge Plan - Plan Referrals: Saleem Ramirez DO [Primary Care Provider] - 03/29/17 1:00 pm (Please follow up as schedule...)
[2017-03-23] MEDS: Acetaminophen 325 MG TABLET PO PRN (13:20)
[2017-03-23 17:55] LABS: Acinetobacter baumannii by PCR Not Detected (Not Detect); Candida albicans by PCR ***DETECTED*** (Not Detect); Candida glabrata by PCR Not Detected (Not Detect); Candida krusei by PCR Not Detected (Not Detect); Candida parapsilosis by PCR Not Detected (Not Detect); Candida tropicalis by PCR ***DETECTED*** (Not Detect); Enterococcus by PCR Not Detected (Not Detect); Escherichia coli by PCR Not Detected (Not Detect); Klebsiella oxytoca by PCR Not Detected (Not Detect); Klebsiella pneumoniae by PCR Not Detected (Not Detect); Pseudomonas aeruginosa by PCR Not Detected (Not Detect); Serratia marcescens by PCR Not Detected (Not Detect); Staphylococcus aureus by PCR Not Detected (Not Detect); Streptococcus agalactiae(B)PCR Not Detected (Not Detect); Streptococcus by PCR Not Detected (Not Detect); Streptococcus pneumoniae PCR Not Detected (Not Detect); Streptococcus pyogenes (A) PCR Not Detected (Not Detect); blaKPC Carbapenem-Resist Gene Not Detected (Not Detect); mecA Methicillin-Resist Gene Not Detected (Not Detect); vanA/B Vancomycin-Resist Genes Not Detected (Not Detect)
[2017-03-23] MEDS: Insulin DETEMIR 100 UNIT/ML X5UNITS SQ SCH (19:36)
[2017-03-24] MEDS: Ipratropium/Albuterol Neb 3 ML IH SCH ×4 (03:33→22:21)
[2017-03-24] MEDS: *HR* Heparin 5,000 UNIT/ML VIAL SQ SCH ×3 (03:53→20:59)
[2017-03-24 05:19] LABS: Basophils % 0.3 %; Eosinophils # 0.3 K/mcL (0.0-0.6); Eosinophils % 4.8 %; Hematocrit 24.2 % (37.5-50.1); Hemoglobin 7.6 g/dL (12.9-16.9); Immature Granulocytes % 1.1 % (0-4); Lymphocytes # 0.3 K/mcL (0.6-4.6); Lymphocytes % 3.5 %; Mean Corpuscular HGB Conc 31.4 g/dL (31.6-35.5); Mean Corpuscular Volume 89.3 fL (83.0-100.0); Mean Platelet Volume 8.7 fL (9.4-12.4); Monocytes # 0.3 K/mcL (0.0-1.3); Monocytes % 4.6 %; Neutrophils # 6.1 K/mcL (1.6-8.9); Platelet Count 368 K/mcL (140-400); Red Blood Count 2.71 M/mcL (4.19-5.50); Red Cell Distribution Width 14.7 % (11.5-14.5); Segmented Neutrophils % 85.7 %
[2017-03-24 05:54] LABS: Calcium 7.2 mg/dL (8.6-10.3); Magnesium 1.6 mg/dL (1.6-2.6); Phosphorous 4.6 mg/dL (2.7-4.5); Potassium 3.7 mEq/L (3.5-5.1)
[2017-03-24 06:05] LABS: Hepatitis B Surface Antibody 4.27 mIU/mL
[2017-03-24] MEDS: Lactobacillus 1 EACH CAP.SPRINK PO SCH (08:01)
[2017-03-24] MEDS: Folic Acid 1 MG TABLET PO SCH (08:01)
[2017-03-24] MEDS: *HR* OxyCODONE Immed Rel 5 MG TABLET PO PRN ×3 (08:01→21:57)
[2017-03-24] MEDS: Cholecalciferol (D-3) 1,000 UNIT TABLET PO SCH (08:01)
[2017-03-24] MEDS: Insulin LISPRO 300 UNITS/3 ML VIAL SQ SCH ×7 (08:05→19:45)
--- NOTE | 2017-03-24 08:15 | Urology Progress Note ---
Date of Encounter: 03/24/17 Time of Encounter: 08:13 - Assessment and Plan (1) Acute kidney injury superimposed on chronic kidney disease Current Visit: Yes Status: Acute Assessment and plan: slightly improved serum creatinine. (2) Hydronephrosis Current Visit: No Status: Acute Assessment and plan: sp drainage with b/l pcn tubes. continue nephrostomy tubes. Qualifiers: Hydronephrosis type: other Qualified Code(s): N13.39 - Other hydronephrosis (3) Prostate cancer Current Visit: No Status: Acute Progress Note Narrative: patient states that he is feeling slightly better this am. no pain. good uop Objective Initial Vital Signs Temp Pulse Resp BP Pulse Ox 99.7 F H 74 18 134/83 94 03/19/17 10:01 03/19/17 10:01 03/19/17 10:01 03/19/17 10:01 03/19/17 10:01 - General physical appearance Present: well developed - Abdomen Present: soft - Genitourinary Present: other (clear urine in bilateral pcn tubes) - Labs 03/24/17 04:58 03/24/17 04:58 Diabetes panel 03/24/17 Range/Units 04:58 Sodium 137 (136-145) mEq/L Potassium 3.7 (3.5-5.1) mEq/L Chloride 106 (98-107) mEq/L Carbon Dioxide 23 (23-29) mEq/L BUN 42 H (8-23) mg/dL Creatinine 5.40 H (0.70-1.30) mg/dL Glucose 83 (70-105) mg/dL Calcium 7.2 L (8.6-10.3) mg/dL Calcium panel 03/24/17 Range/Units 04:58 Calcium 7.2 L (8.6-10.3) mg/dL Phosphorus 4.6 H (2.7-4.5) mg/dL Pituitary panel 03/24/17 Range/Units 04:58 Sodium 137 (136-145) mEq/L Potassium 3.7 (3.5-5.1) mEq/L Chloride 106 (98-107) mEq/L Carbon Dioxide 23 (23-29) mEq/L BUN 42 H (8-23) mg/dL Creatinine 5.40 H (0.70-1.30) mg/dL Glucose 83 (70-105) mg/dL Calcium 7.2 L (8.6-10.3) mg/dL Adrenal panel 03/24/17 Range/Units 04:58 Sodium 137 (136-145) mEq/L Potassium 3.7 (3.5-5.1) mEq/L Chloride 106 (98-107) mEq/L Carbon Dioxide 23 (23-29) mEq/L BUN 42 H (8-23) mg/dL Creatinine 5.40 H (0.70-1.30) mg/dL Glucose 83 (70-105) mg/dL Calcium 7.2 L (8.6-10.3) mg/dL - VTE Documentation of Mechanical Device: Graduated compression elastic hosiery Consult Discharge Plan - Plan Referrals: Saleem Ramirez DO [Primary Care Provider] - 03/29/17 1:00 pm (Please follow up as schedule...)
[2017-03-24] MEDS: Ondansetron 4 MG/2 ML VIAL IVP PRN ×3 (08:18→21:58)
--- NOTE | 2017-03-24 09:40 | Nephrology Progress Note ---
Date of Encounter: 03/24/17 Time of Encounter: 09:20 - Assessment and Plan (1) APOORVA (acute kidney injury) Current Visit: No Status: Acute APOORVA superimposed on CKD4. S/P bilateral neph tube exchange, followed by septic shower. Renal fct now improving, creat 5.40. Will continue to monitor, continue IV hydration as alberto., I&O, avoid nephrotoxins. Subjective Interval history: Laying quietly, states somewhat better than yesterday, some nausea. Objective - Vital Signs Vital signs: Vital Signs Temp Pulse Resp BP Pulse Ox 03/24/17 07:54 98.1 F 73 16 114/78 97 03/24/17 05:24 98.7 F 76 18 113/79 99 03/24/17 02:49 99.7 F H 85 19 116/73 97 03/24/17 01:10 99.1 F 98 18 120/73 97 03/23/17 22:44 99.8 F H 84 18 129/76 96 03/23/17 21:11 98.2 F 78 18 117/66 98 03/23/17 19:12 98.0 F 79 19 108/70 98 03/23/17 17:09 97.6 F 75 18 110/63 95 03/23/17 15:05 98.2 F 78 16 100/60 94 03/23/17 13:16 101.4 F H 89 18 121/69 95 03/23/17 10:54 98.2 F 86 18 112/59 96 Intake and Output 03/23/17 03/24/17 03/24/17 23:59 07:59 15:59 Intake Total 400 / 400 Output Total 370 / 370 650 / 650 Balance 30 / 30 -650 / -650 Intake: IV Fluids 400 / 400 Zyvox Premix 600mg/300mL 600 mg 300 / 300 In 300 ml @ 150 mls/hr IVPB Q12H RAUL Rx#:[id number] Zosyn 3.375 GM In 0.9 % Sodium 100 / 100 Chloride 100 ML @ 25 mls/hr IVPB Q12H RAUL Rx#:[id number] Output: Wound Drainage 370 / 370 650 / 650 Left Back 120 / 120 250 / 250 Right Back 250 / 250 400 / 400 Other: Weight 108.1 kg Blood Glucose* 152 74 Patient Weight 02/09/18 23:59 Weight 108.1 kg - General Appearance General appearance: Present: well-developed, well-nourished, appears started age EENT: Present: mucous membranes moist Neck: Present: no JVD Respiratory: Present: clear Cardiology: Present: edema, regular rate, regular rhythm Additional Comments: mild Gastrointestinal: Present: hypoactive bowel sounds, no tenderness Integumentary: Present: warm and dry Neurologic: Present: alert and oriented x3 - Lab 03/24/17 04:58 03/24/17 04:58 Most recent lab results Calcium 7.2 mg/dL (8.6-10.3) L 03/24/17 04:58 Phosphorus 4.6 mg/dL (2.7-4.5) H 03/24/17 04:58 Magnesium 1.6 mg/dL (1.6-2.6) 03/24/17 04:58 - VTE Documentation of Mechanical Device: Graduated compression elastic hosiery Consult Discharge Plan - Plan Referrals: Saleem Ramirez DO [Primary Care Provider] - 03/29/17 1:00 pm (Please follow up as schedule...)
--- NOTE | 2017-03-24 10:16 | Internal Med Progress Note ---
Date of Encounter: 03/24/17 Time of Encounter: 09:33 - Assessment and plan (1) Pyonephrosis Current Visit: Yes Status: Acute Assessment and plan: remains high risk for sepsis currently afebrile s/p b/l nephrostomy tubes placement by IR(03/22/17) good urine output noted with clearance of pyouria urine culture prelim positive for Gram positive cocci and yeast species Continue Linezolid (Vanco discontinued due to poor renal function) continue Zosyn and Micafungin continue gentle IV fluid hydration and closely monitor for signs of volume overload (2) Acute kidney injury superimposed on chronic kidney disease Current Visit: Yes Status: Acute Assessment and plan: secondary to poorly functioning ureteral stents urology and nephrology on board and consultations appreciated s/p bilateral nephrostomy tubes placement (03/22/17) continue empiric IV abx f/u final urine and blood cultures concern for urosepsis (3) Influenza Current Visit: Yes Status: Acute Assessment and plan: Pt recently had four days of Tamiflu prior to hospitalization will continue supportive care at this time IV fluids, bronchodilator support, tyelnol as needed (4) Generalized weakness Current Visit: Yes Status: Acute Assessment and plan: secondary to underlying infection continue supportive care pt encourage to get out of bed to chair with assistance (5) Intractable nausea and vomiting Current Visit: Yes Status: Acute Assessment and plan: continue supportive care anti-emetics as needed Qualifiers: Vomiting type: unspecified Qualified Code(s): R11.2 - Nausea with vomiting , unspecified (6) SOB (shortness of breath) Current Visit: Yes Status: Resolved Assessment and plan: resolved at this time (7) Anemia Current Visit: Yes Status: Chronic Assessment and plan: history of anemia of chronic disease secondary to CKD continue Aranesp as per nephrology H&H low but acceptable will continue to closely monitor transfuse for Hgb<7 Qualifiers: Anemia type: other cause Other causes of anemia: other cause, not classified Qualified Code(s): D64.89 - Other specified anemias (8) Diabetes Current Visit: Yes Status: Chronic Assessment and plan: continue home dose of levemir sliding scale insulin algorithm as needed monitor FS and BG ADA diet Qualifiers: Diabetes mellitus type: type 2 Diabetes mellitus complication status: with unspecified complications 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 Resting in bed and reports of feeling better compared to previous day. Noted to have 1800 cc output in the b/l Nephrostomy tubes. Noted to have drop in mild H&H, will continue to closely monitor. Currently saturating well on baseline nasal cannula. Blood culture 1/2 reported yeast species ID consultation requested pt already on Micafungin - Constitutional Vitals: Temp Pulse Resp BP Pulse Ox 98.1 F 73 16 114/78 97 03/24/17 07:54 03/24/17 07:54 03/24/17 07:54 03/24/17 07:54 03/24/17 07:54 General appearance: Present: cooperative, A&O X 3 (weak), pleasant, no acute distress, obese, answers questions appropriately - Head Head exam: Present: atraumatic, normocephalic - Eye Eye exam: Present: conjuntiva pink, sclera anicteric - Respiratory Respiratory exam: Absent: rales (equal air entry bilaterally ), respiratory distress, wheezes - Cardiovascular Cardiovascular exam: Present: RRR, +S1, +S2. Absent: diastolic murmur, gallop, rubs, systolic murmur - GI/Abdominal GI/Abdominal exam: Present: normal bowel sounds, soft, no peritoneal signs. Absent: distended, tenderness - Extremities Exam Extremities exam: Present: warm, radial pulses palpable and symmetrical. Absent : calf tenderness, pedal edema - Neurological Exam Neurological exam: Present: alert, oriented X3 - Psychiatric Psychiatric exam: Present: normal affect, normal mood Internal Medicine: Result - Labs CBC & Chem 7: 03/24/17 04:58 03/24/17 04:58 Labs: Short CBC 03/24/17 Range/Units 04:58 WBC 7.1 (4.3-11.1) K/mcL Hgb 7.6 L (12.9-16.9) g/dL Hct 24.2 L (37.5-50.1) % Plt Count 368 (140-400) K/mcL Neutrophils # 6.1 (1.6-8.9) K/mcL BMP 03/24/17 04:58 Sodium 137 Potassium 3.7 Chloride 106 Carbon Dioxide 23 BUN 42 H Creatinine 5.40 H Glucose 83 Calcium 7.2 L - ABG Interpretation ABG results: PT/INR, D-dimer PT 13.2 Seconds (9.4-12.1) H 03/22/17 09:59 D-Dimer 1193 ng/mLFEU (0-500) H 03/19/17 17:05 - VTE Documentation of Mechanical Device: Graduated compression elastic hosiery Consult Discharge Plan - Plan Referrals: Saleem Ramirez DO [Primary Care Provider] - 03/29/17 1:00 pm (Please follow up as schedule...)
--- NOTE | 2017-03-24 11:22 | Infectious Disease Consult ---
Date of Encounter: 03/24/17 Time of Encounter: 11:20 Assessment and Plan (1) Sepsis Status: Acute Assessment and plan: The patient developed three SIRS criteria on 03/22/17. Likely secondary to pyonephrosis and candidemia. Improved. WBC has normalized. He has been afebrile x 24 hours. Tachycardia has resolved. Blood cultures drawn 03/19/17 are NGTD x 2 sets. Repeat blood cultures drawn 03/22/17 at 1000 are NGTD x 2 sets. Additional blood cultures drawn 03/22/17 at 1600 are positive 1/2 sets for Yeast species. The PCR picked up C. albicans and C. tropicalis. Qualifiers: Sepsis type: sepsis due to unspecified organism Qualified Code(s): A41.9 - Sepsis, unspecified organism (2) Candidemia Status: Acute Assessment and plan: Causative organism: C. albicans and C. tropicalis. Source for the C. tropicalis likely the urinary system/pyonephrosis, but the C. albicans source is unclear --> contaminant vs. true infection. Blood cultures drawn 03/19/17 are NGTD x 2 sets. Repeat blood cultures drawn 03/22/17 at 1000 are NGTD x 2 sets. Additional blood cultures drawn 03/22/17 at 1600 are positive 1/2 sets for Yeast species. The PCR picked up C. albicans and C. tropicalis. The patient is known to have bladder colonization with C. tropicalis. This set of blood cultures were drawn after the patient had bilateral nephrostomy tubes placed. Repeat blood cultures x 2 sets now. Consult opthalmology to assess for endopthalmitis. Unfortunately, micafungin has poor penetration in the bladder, but it does have good blood serum levels. Continue Micafungin 100mg IV daily for now until his renal function improves. At that point, we will likely switch to Amphotericin B deoxycholate (Amphotericin B lipid formulation does not penetrate the urinary system) to treat the UTI/pyonephrosis. Duration of treatment depends on the clinical picture, but likely 14 days from the first set of negative blood cultures. Monitor renal and liver function and dose-adjust antibiotics. (3) Candiduria Status: Acute Assessment and plan: Causative organism unclear, but likely C. tropicalis given the patient's past culture history. The patient has a history of colonization of the bladder, but given that the patient now has pyonephrosis and candidemia, will need to treat. Continue Micafungin as above for now and will plan to switch to Amphotericin B when his renal function recovers. Duration of treatment depends on the clinical picture, but likely 14 days. The patient does have bilateral ureteral stents which may need to be removed due to decrease the risk of seeding. Will discuss with Urology. (4) UTI (urinary tract infection) Status: Acute Assessment and plan: Causative organism unclear. Urine culture gram stain shows GPC. True infection vs. contaminant. Patient has a history of bladder colonization with S. epi. Continue linezolid 600mg IV BID for now, but will likely discontinue soon once cultures finalize. Qualifiers: Urinary tract infection type: acute cystitis Hematuria presence: without hematuria Qualified Code(s): N30.00 - Acute cystitis without hematuria (5) Pyonephrosis Status: Acute Assessment and plan: Likely secondary to hydronephrosis. Causative organism unclear, but likely C. tropicalis. Renal ultrasound showed moderate bilateral hydronephrosis. CT of the abdomen and pelvis completed 03/22/17 showed bilateral hydroureteronephrosis with perinephric stranding bilaterally and findings consistent with cystitis. Urology consulted. Recommended placing bilateral nephrostomy tubes due to worsening renal function and sepsis-like picture. Status post bilateral PNT placement 03/22/17. Pus noted from the left tube initially with clear, blood-tinged urine afterwards. Specimen collected from the left renal system was positive for large leukocyte esterase, but the culture was negative. Fevers, leukocytosis, and tachycardia post-procedure likely secondary to septic shower.--> improved. PNT management per the urology team. Continue Micafungin as above. Will switch to amphotericin B when renal function recovers. Discontinue Zosyn. Continue linezolid as above for now until urine culture finalize. (6) Influenza Status: Acute Assessment and plan: RIP positive for influenza A. Supportive care. (7) Acute kidney injury superimposed on chronic kidney disease Status: Acute Assessment and plan: Likely multifactorial: bilateral hydronephrosis + dehydration + hypotension. Nephrology consulted and following. Renal status improved after PNT placement. Continue to trend. Dose-adjust antibiotics. Avoid nephrotoxins as able. (8) Hydronephrosis Status: Acute Assessment and plan: Likely secondary to obstruction from the prostate cancer. Status post PNT 03/22/17. Urology consulted and following. Qualifiers: Hydronephrosis type: other Qualified Code(s): N13.39 - Other hydronephrosis (9) Dehydration Status: Acute Assessment and plan: Secondary to poor PO intake. Improved. Management per the primary team. (10) Generalized weakness Status: Acute (11) Intractable nausea and vomiting Status: Acute Assessment and plan: Likely secondary to infectious process. Improved. Symptomatic management. Qualifiers: Vomiting type: unspecified Qualified Code(s): R11.2 - Nausea with vomiting , unspecified (12) Diabetes mellitus Status: Chronic Qualifiers: Diabetes mellitus type: type 2 Diabetes mellitus complication status: with kidney complications Diabetes mellitus complication detail: with chronic kidney disease Diabetes mellitus terminal system operator insulin use: with terminal system operator use Chronic kidney disease stage: stage 3 (moderate) Qualified Code(s): E11.22 - Type 2 diabetes mellitus with diabetic chronic kidney disease; N18.3 - Chronic kidney disease, stage 3 (moderate); N18.3 - Chronic kidney disease, stage 3 ( moderate); Z79.4 - terminal operations manager (current) use of insulin; Z79.4 - prison ( current) use of insulin; Z79.4 - terminal operations manager (current) use of insulin; Z79.4 - prison (current) use of insulin (13) History of prostate cancer Status: Chronic Assessment and plan: Diagnosed in January 2016, unresectable. Status post TURP with ureteral stents in Jan 2016. Underwent 39 radiation treatments from August 2016 to October 2016 at [facility]. Currently undergoing Lupron injections with last one in February 2017, next one May 2017. Infectious Disease HPI - Data of Consult Patient: known to practice within the last 3 years Consult date: 03/24/17 Requesting Physician: Charito Paredes MD Primary Care Provider: Saleem Ramirez DO - Consult Narrative Reason for consult: Candidemia History of present illness: Mr. Rivera is a 66 year old male medical history of unresectable chronic prostate cancer status post TURP with bilateral ureteral stents placed in January 2016 with stent exchange in April 2016 and August 2016, diabetes, hypertension, and hyperlipidemia. The patient was admitted to the hospital March 19 for dehydration and acute kidney injury. We are consulted for [facility] for antibiotic recommendations for candidemia and candiduria and pyonephrosis. Briefly, the patient is a 66-year-old male, well-known to the infectious disease service as he was referred to our practice as an outpatient last April. At that time, patient was noted to have colonization of the bladder with Emmanuelle tropicalis and was symptomatic and was treated with a seven-day course of amphotericin. Since then, the patient has required hospitalization a couple of different times for acute kidney injury secondary to hydronephrosis. Most recently, the patient was hospitalized back in January when his serum creatinine was noted to be 6.15. He has CT that showed right hydroureter and hydronephrosis and underwent a right percutaneous tube placement on January 13. On February 03, he underwent bilateral ureteral stent placement and had previous stents removed. He did well postop and was able to have the right nephrostomy tube removed on March 02. On March 15, he began to experience shortness of breath, cough, fevers, and weakness with severe nausea. He tested positive for influenza A and dose her on Tamiflu. His symptoms continued to worsen so he came to the emergency department. Upon arrival, the patient was afebrile and hemodynamically stable. He had a normal white blood cell count, but his serum creatinine was elevated at 4.56. Urinalysis was obtained that was positive for large amount of leukocyte esterase and too numerous to count white blood cells, but appeared contaminated and and culture was not done. Chest x- ray was negative. He did have a repeat influenza test that was positive. Blood cultures were sent 2 sets are no growth to date. He was admitted to the hospital for further evaluation and treatment. After admission, the patient was evaluated by nephrology. He had a retroperitoneal ultrasound showed moderate bilateral hydronephrosis. On March he began to spike fevers and have tachycardia. His clinical picture declined and he underwent a CT the abdomen and pelvis that showed bilateral hydroureteronephrosis with perinephric stranding bilaterally. Nares were obtained at that time and are no growth to date 2 sets. Will ache straight catheter urine specimen was obtained that was positive for gram- positive cocci and yeast species. He was started. On IV vancomycin and IV Zosyn. He was evaluated later that day by urology and was noted to have worsening renal function. An eventual radiology was consulted and the patient underwent bilateral percutaneous nephrostomy placement noted to have pus coming from the left kidney. Specimen was sent for urinalysis and culture, but the culture was negative. Blood cultures obtained after the nephrostomy tubes were placed were obtained 2 sets and are positive for Emmanuelle albicans and Emmanuelle tropicalis 1 out of 2 sets per the PCR. The patient was started on micafungin. The following day, he did develop leukocytosis and continued to have fevers and tachycardia. His functional function did worsen slightly. Vancomycin was switched to linezolid to minimize nephrotoxic exposure. Today, the patient's white blood cell count is normal and his renal function has started to improve. He has been afebrile for 24 hours. We've been asked to evaluate and make further recommendations. During my exam today, the patient endorses a history as stated above. He states that he does feel little bit better today. He states that prior to admission he was having dysuria and urinary frequency and hematuria. He reported that he was also having bilateral flank pain. He denied any abdominal pain. He states he was unable to eat anything due to the severe nausea. He reported fevers and chills and rigors. He denied any headache or neck pain. He denied any nasal congestion, earache, or sore throat. He denied any chest pain or shortness of breath, but did report a nonproductive cough. He does report some floaters, but denies other visual disturbances. He denies any oral thrush or any skin lesions. She lives at home with his . He is retired from the [employer]. He denies any tobacco, alcohol, or illicit drug use. Finish 39 treatments of radiation for his prostate cancer back in October. He is currently on Lupron injections with his last injection being in February and the next lisa is scheduled for May. CC: Charito Paredes MD Past Med Surg Social Fam HX - Past Medical History Attestation: Yes The following information was validated with the patient. Source: patient, old records reviewed, nursing notes reviewed Medical history: cancer (Prostate w/39 radiation treatments between August and October 2016 at [facility] and current Lupron injections w/last one on 02/17/17 and next in May.), diabetes (Insulin controlled), hyperlipidemia, hypertension Psychiatric history: no psych history - Past Surgical History Surgical History: orthopedic, other (Left knee arthroplasty), ureteral stent ( Bilateral ureteral stents Jan 2016, April 2016, August 2016; Bilateral metal stent placement 01/2017), other (Right nephrostomy tube placement 01/2017 with removal 02/2017) - Social History Smoking Status: Never smoker Smokeless Tobacco Status: No Alcohol use: none Drug use: none - Family History Father Race: Family Member Ethnicity: Non- Living Status: Age at : 76 Cause of : Colon cancer Hx Family Cardiac Disorders: No Hx Family Respiratory Disorders: No Hx Family Cancer: Yes (Colon) Hx Family GI Disorders: No Hx Family Endocrine Disorder: Yes (Diabetes) Hx Family Neuromuscular Disorders: No Hx Family Neurologic Disorders: No Hx Family HEENT Disorders: No Hx Family Autoimmune Disorders: No Brother Race: Family Member Ethnicity: Non- Living Status: Age at : 67 Cause of : Colon and lung cancer Hx Family Cancer: Yes (Colon and lung) Mother Race: Family Member Ethnicity: Non- Living Status: Cause of : Gangrene Sister Race: Family Member Ethnicity: Non- Living Status: Still Living Hx Family Genitourinary Disorders: Yes (CKD) Hx Family Endocrine Disorder: Yes (DM) Infectious Disease-CN:Meds Insulin DETEMIR [Levemir] 30 unit SQ HS 30 Days [id number] 01/19/16 [Rx] Sertraline [Zoloft] 25 mg PO DAILY 04/13/16 [History] Insulin ASPART [Novolog Flexpen] 10 - 15 unit SQ TID 11/17/16 [History] Diltiazem CD (24hr) [Cardizem CD] 240 mg PO DAILY 12/15/16 [History] Omeprazole [PriLOSEC] 40 mg PO DAILY 01/12/17 [History] Cholecalciferol (D-3) [Vitamin D] 1,000 unit PO DAILY 03/19/17 [History] Folic Acid [FA-8] 0.8 mg PO DAILY 03/19/17 [History] Lactobacillus Combination No.9 [Adult 50 + Probiotic] 1 cap PO DAILY 03/19/17 [ History] Ondansetron HCl [Zofran] 4 mg PO TID PRN 03/19/17 [History] 3 Allergy/AdvReac Type Severity Reaction Status Date / Time No Known Allergies Allergy Verified 02/03/17 07:16 All systems: reviewed and no additional remarkable complaints except as stated Exam - Constitutional Vitals: Temp Pulse Resp BP Pulse Ox 98.1 F 73 16 114/78 97 03/24/17 07:54 03/24/17 07:54 03/24/17 07:54 03/24/17 07:54 03/24/17 07:54 General appearance: cooperative, no acute distress, obese - Head Head exam: Present: atraumatic, normal inspection, normocephalic - Eye Eye exam: Present: EOMI, normal appearance, PERRL Pupils: Present: normal accommodation Additional comments: No subconjunctival hemorrhage noted. - ENT ENT exam: Present: mucous membranes moist - Neck Neck exam: Present: normal inspection - Respiratory Respiratory exam: Present: CTAB. Absent: rales, respiratory distress, rhonchi, wheezes - Cardiovascular Cardiovascular exam: Present: RRR, +S1, +S2 - GI/Abdominal GI/Abdominal exam: Present: normal bowel sounds, soft. Absent: distended, tenderness - Extremities Exam Extremities exam: Present: normal inspection, pedal edema (Trace BLE). Absent: joint swelling, tenderness Additional comments: No endocarditis stigmata noted. - Back Exam Back exam: Present: CVA tenderness (L), CVA tenderness (R). Absent: paraspinal tenderness, vertebral tenderness Additional comments: Bilateral nephrostomy tubes noted. Left PNT with blood-tinged urine noted in the collection bag. Right PNT with clear yellow urine. - Neurological Exam Neurological exam: Present: alert, oriented X3, no focal deficits - Psychiatric Psychiatric exam: Present: normal affect, normal mood - Skin Skin exam: Present: dry, intact, normal color, warm Infectious Disease CN: Results - Labs CBC & Chem 7: 03/24/17 04:58 03/24/17 04:58 Cultures: Cultures 03/22/17 09:59 Blood Culture - Preliminary Peripheral Venipuncture No growth. 03/22/17 16:08 Blood Culture - Preliminary Peripheral Venipuncture No growth. 03/22/17 09:59 Blood Culture - Preliminary Peripheral Venipuncture No growth. 03/22/17 00:46 Urine Culture - Preliminary Urine,Catheterized Gram Positive Cocci Yeast Species 03/22/17 16:13 Blood Culture - Preliminary Peripheral Venipuncture Yeast Species 03/22/17 15:40 Urine Culture - Final Urine,Kidney No significant growth. Serology: Serology 03/23/17 03/22/17 03/22/17 Range/Units 09:15 16:13 15:40 Ur Specimen Adequacy Mucoid Specimen A Urine Color (Yellow) Urine Clarity (Clear) Urine pH (5.0-8.0) pH Units Ur Specific [place] (1.010-1.025) Urine Protein (Neg-Trace) mg/dL Urine Glucose (UA) (Normal) mg/dL Urine Ketones (Negative) mg/dL Urine Blood (Negative) Urine Nitrite (Negative) Urine Bilirubin (Negative) Urine Urobilinogen (Normal) mg/dL Ur Leukocyte Esterase (Negative) Urine Microscopic RBC Present (0-3) per hpf Urine Microscopic WBC Present (0-3) per hpf Ur Squamous Epith Cells (None-Few) per lpf Urine Bacteria (None-Few) per hpf Urine Yeast Ur Culture Indicated? YES A (NO) A. baumannii (PCR) Not Detected (Not Detect) Emmanuelle albicans (PCR) DETECTED A (Not Detect) C. glabrata (PCR) Not Detected (Not Detect) C. krusei (PCR) Not Detected (Not Detect) C. parapsilosis (PCR) Not Detected (Not Detect) C. tropicalis (PCR) DETECTED A (Not Detect) Enterobacteriac sp PCR Not Detected (Not Detect) E. cloacae complex PCR Not Detected (Not Detect) Enterococcus sp PCR Not Detected (Not Detect) E. coli (PCR) Not Detected (Not Detect) H. influenzae (PCR) Not Detected (Not Detect) Hep Bs Antigen Nonreactive (Nonreactive) Hep Bs Antibody 4.27 mIU/mL Klebsiella oxytoca PCR Not Detected (Not Detect) Klebsiella pneumoniae Not Detected (Not Detect) List. monocytogenes PCR Not Detected (Not Detect) N. meningitidis (PCR) Not Detected (Not Detect) Proteus species (PCR) Not Detected (Not Detect) Serratia marcescens PCR Not Detected (Not Detect) Staphylococcus sp PCR Not Detected (Not Detect) Staph aureus (PCR) Not Detected (Not Detect) mecA-Methicil Res Gene Not Detected (Not Detect) Streptococcus sp PCR Not Detected (Not Detect) Group A Strep DNA Not Detected (Not Detect) Group B Strep (PCR) Not Detected (Not Detect) Strep pneumoniae (PCR) Not Detected (Not Detect) P. aeruginosa (PCR) Not Detected (Not Detect) Juan/B-Vanco Res Genes Not Detected (Not Detect) KPC (blaKPC) Detect PCR Not Detected (Not Detect) 03/22/17 Range/Units 00:46 Ur Specimen Adequacy Urine Color Yellow (Yellow) Urine Clarity Turbid A (Clear) Urine pH 6.5 (5.0-8.0) pH Units Ur Specific [place] 1.013 (1.010-1.025) Urine Protein 100 H (Neg-Trace) mg/dL Urine Glucose (UA) Normal (Normal) mg/dL Urine Ketones Negative (Negative) mg/dL Urine Blood Large H (Negative) Urine Nitrite Negative (Negative) Urine Bilirubin Negative (Negative) Urine Urobilinogen Normal (Normal) mg/dL Ur Leukocyte Esterase Large H (Negative) Urine Microscopic RBC Present (0-3) per hpf Urine Microscopic WBC TNTC H (0-3) per hpf Ur Squamous Epith Cells Present (None-Few) per lpf Urine Bacteria Present (None-Few) per hpf Urine Yeast Test Not Performed Ur Culture Indicated? (NO) A. baumannii (PCR) (Not Detect) Emmanuelle albicans (PCR) (Not Detect) C. glabrata (PCR) (Not Detect) C. krusei (PCR) (Not Detect) C. parapsilosis (PCR) (Not Detect) C. tropicalis (PCR) (Not Detect) Enterobacteriac sp PCR (Not Detect) E. cloacae complex PCR (Not Detect) Enterococcus sp PCR (Not Detect) E. coli (PCR) (Not Detect) H. influenzae (PCR) (Not Detect) Hep Bs Antigen (Nonreactive) Hep Bs Antibody mIU/mL Klebsiella oxytoca PCR (Not Detect) Klebsiella pneumoniae (Not Detect) List. monocytogenes PCR (Not Detect) N. meningitidis (PCR) (Not Detect) Proteus species (PCR) (Not Detect) Serratia marcescens PCR (Not Detect) Staphylococcus sp PCR (Not Detect) Staph aureus (PCR) (Not Detect) mecA-Methicil Res Gene (Not Detect) Streptococcus sp PCR (Not Detect) Group A Strep DNA (Not Detect) Group B Strep (PCR) (Not Detect) Strep pneumoniae (PCR) (Not Detect) P. aeruginosa (PCR) (Not Detect) Juan/B-Vanco Res Genes (Not Detect) KPC (blaKPC) Detect PCR (Not Detect) - VTE Documentation of Mechanical Device: Graduated compression elastic hosiery Consult Discharge Plan - Plan Referrals: Saleem Ramirez, DO [Primary Care Provider] - 03/29/17 1:00 pm (Please follow up as schedule...) - Attending Attestation I examined this patient and my medical decision-making was reviewed with the Resident Physician. I agree with the documented findings, disposition and treatment plan as described except to the extent set forth below. Patient is a 66-year-old gentleman who is known to our service was seen by Magdalene FERNANDES previously for recurrent Emmanuelle in the urine and patient has hydronephrosis and urinary obstruction due to prostate cancer. Patient came in septic and was found to have influenza A virus and was started on Tamiflu. Patient also was found to have candidemia with Emmanuelle albicans and Emmanuelle tropicalis. Patient is known to have colonization with Emmanuelle tropicalis that is resistant to Diflucan. Patient was started on micafungin and we were asked to evaluate the patient and make further recommendations. Patient also was in acute kidney injury because of post renal obstruction. Currently patient appears comfortable lying in bed, is at bedside. Patient finishes 5 days of Tamiflu and hes asymptomatic. Patient clinically is doing well. Patient tells me that he does see floaters. The question that we have is whether we can put the patient on amphotericin B to cover both Emmanuelle tropicalis and Emmanuelle albicans in the urine and in the blood. The only problem is that his creatinine is so elevated. So we opted to just use micafungin gents to treat the candidemia for now and once the creatinine improves then we can probably switch him to amphotericin to finish the 14 day course and that way we will treat the candiduria and the candidemia at the same time. The risk of worsening renal function right now is great so this why we decided to go with micafungin. I also spoke with ophthalmology who will be evaluating the patient today in the afternoon to rule out endophthalmitis. Well appreciate urologys recommendation to see if they can remove the metal stents now that the patient has nephrostomy tubes
[2017-03-24] MEDS: *HR* Promethazine 25 MG/ML VIAL IVP PRN (12:12)
[2017-03-24] MEDS: Micafungin 100 MG in 0.9 % Sodium Chloride Mini Bag 100 ML IVPB SCH (13:39)
[2017-03-24] MEDS ORDERED: Levofloxacin 250 MG/50 ML 250 MG/50 ML BAG IVPB SCH ×2 (18:00)
[2017-03-24] MEDS ORDERED: LEVOFLOXACIN 500 MG/100 ML MLS IVPB SCH (18:00)
[2017-03-24] MEDS: Insulin DETEMIR 100 UNIT/ML X5UNITS SQ SCH (21:00)
--- NOTE | 2017-03-24 21:10 | Internal Medicine Consult Note ---
Date of Encounter: 03/24/17 Time of Encounter: 21:05 Internal Medicine - CN: HPI - Data of Consult Requesting Physician: Charito Paredes MD Patient has candidemia and consultation was requested to rule out endophthalmitis. Patient reports good vision in good comfort of both eyes. He does have floaters but he is not certain of which eye has floaters. Patient reportedly had a blood vessel burst (conjunctival hemorrhage?) approximately 1 week ago. 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 Examination revealed visual acuity with correction of 20/25 in the right eye and 20/25 in the left eye (near equivalent Snellen). Pupils were equal round and reactive to light with no relative afferent pupillary defects noted. Confrontation visual suárez were full in all quadrants of both eyes. Ocular motility testing revealed full excursion of both eyes to wall cardinal positions of gaze. Slit lamp examination revealed normal eyelids in both eyes although there was mild ptosis of the left upper eyelid. The conjunctiva was normal in both eyes. Moderate punctate epithelial defects were noted on the cornea in both eyes but otherwise the cornea was clear and normal in both eyes. The anterior chambers were grade 1 in depth and clear in both eyes. The iris was normal in both eyes. The intraocular pressures were 10 mmHg in the right eye and 10 mmHg in the left eye by applanation. The pupils were dilated with 1% tropicamide and 2-1/2% phenylephrine drops in both eyes. Further examination after dilation of the pupils revealed +2 to +3 nuclear sclerosis in the lens in both eyes. The vitreous was clear in both eyes with a posterior vitreous detachment noted in both eyes. The optic nerve heads appeared normal with a cup-to-disc ratio of 0.3 in the right eye and 0.1 in the left eye. There was a small flame hemorrhage noted inferior to the right optic disc along the infero-temporal vascular arcade. Otherwise, the macula, posterior pole and retinal vessels were normal in both eyes. Mild paving stone degeneration was noted in the retinal periphery in both eyes. Otherwise, the retinal periphery was normal in both eyes. Impression: 1. No evidence of endophthalmitis was appreciated. 2. Nuclear sclerotic cataracts present in both eyes. 3. 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 4. Posterior vitreous detachments were noted in both eyes. Recommendation: Continue present treatment. I explained to the patient that he does have nuclear sclerotic cataracts that can be removed when it is convenient for him when his medical condition is stable. I did review with him the warning signs of a retinal tear detachment, namely increased spots in the field of vision, light flashes, or a blind area in the field of vision in either eye. I instructed him to contact and eye professional should the symptoms be noted. - Consult Narrative History of present illness: Mr. Rivera is a 66 year old male Past Med Surg Social Fam HX - Past Medical History Medical history: cancer (Prostate w/39 radiation treatments between August and October 2016 at [facility] and current Lupron injections w/last one on 02/17/17 and next in May.), diabetes (Insulin controlled), hyperlipidemia, hypertension Psychiatric history: no psych history - Past Surgical History Surgical History: orthopedic, other (Left knee arthroplasty), ureteral stent ( Bilateral ureteral stents Jan 2016, April 2016, August 2016; Bilateral metal stent placement 01/2017), other (Right nephrostomy tube placement 01/2017 with removal 02/2017) - Social History Smoking Status: Never smoker Smokeless Tobacco Status: No Alcohol use: none Drug use: none - Family History Father Race: Family Member Ethnicity: Non- Living Status: Age at : 76 Cause of : Colon cancer Hx Family Cardiac Disorders: No Hx Family Respiratory Disorders: No Hx Family Cancer: Yes (Colon) Hx Family GI Disorders: No Hx Family Endocrine Disorder: Yes (Diabetes) Hx Family Neuromuscular Disorders: No Hx Family Neurologic Disorders: No Hx Family HEENT Disorders: No Hx Family Autoimmune Disorders: No Brother Race: Family Member Ethnicity: Non- Living Status: Age at : 67 Cause of : Colon and lung cancer Hx Family Cancer: Yes (Colon and lung) Mother Race: Family Member Ethnicity: Non- Living Status: Cause of : Gangrene Sister Race: Family Member Ethnicity: Non- Living Status: Still Living Hx Family Genitourinary Disorders: Yes (CKD) Hx Family Endocrine Disorder: Yes (DM) Internal Medicine - CN: Meds Insulin DETEMIR [Levemir] 30 unit SQ HS 30 Days [id number] 01/19/16 [Rx] Sertraline [Zoloft] 25 mg PO DAILY 04/13/16 [History] Insulin ASPART [Novolog Flexpen] 10 - 15 unit SQ TID 11/17/16 [History] Diltiazem CD (24hr) [Cardizem CD] 240 mg PO DAILY 12/15/16 [History] Omeprazole [PriLOSEC] 40 mg PO DAILY 01/12/17 [History] Cholecalciferol (D-3) [Vitamin D] 1,000 unit PO DAILY 03/19/17 [History] Folic Acid [FA-8] 0.8 mg PO DAILY 03/19/17 [History] Lactobacillus Combination No.9 [Adult 50 + Probiotic] 1 cap PO DAILY 03/19/17 [ History] Ondansetron HCl [Zofran] 4 mg PO TID PRN 03/19/17 [History] 3 Allergy/AdvReac Type Severity Reaction Status Date / Time No Known Allergies Allergy Verified 02/03/17 07:16 Internal Medicine - CN: Exam - Constitutional Vitals: Temp Pulse Resp BP Pulse Ox 98.1 F 72 18 117/78 98 03/24/17 19:28 03/24/17 19:28 03/24/17 19:28 03/24/17 19:28 03/24/17 19:28 Internal Medicine - CN: Reslt - Labs CBC & Chem 7: 03/24/17 04:58 03/24/17 04:58 Labs: Short CBC 03/24/17 Range/Units 04:58 WBC 7.1 (4.3-11.1) K/mcL Hgb 7.6 L (12.9-16.9) g/dL Hct 24.2 L (37.5-50.1) % Plt Count 368 (140-400) K/mcL Neutrophils # 6.1 (1.6-8.9) K/mcL BMP 03/24/17 04:58 Sodium 137 Potassium 3.7 Chloride 106 Carbon Dioxide 23 BUN 42 H Creatinine 5.40 H Glucose 83 Calcium 7.2 L - ABG Interpretation ABG results: PT/INR, D-dimer PT 13.2 Seconds (9.4-12.1) H 03/22/17 09:59 D-Dimer 1193 ng/mLFEU (0-500) H 03/19/17 17:05 Consult Discharge Plan - Plan Referrals: Saleem Ramirez DO [Primary Care Provider] - 03/29/17 1:00 pm (Please follow up as schedule...)
[2017-03-25] MEDS: Ipratropium/Albuterol Neb 3 ML IH SCH ×4 (04:07→21:48)
[2017-03-25] MEDS: *HR* Heparin 5,000 UNIT/ML VIAL SQ SCH ×3 (04:12→21:13)
--- NOTE | 2017-03-25 08:23 | Urology Progress Note ---
Date of Encounter: 03/25/17 Time of Encounter: 08:22 - Assessment and Plan (1) Acute kidney injury superimposed on chronic kidney disease Current Visit: Yes Status: Acute Assessment and plan: Awaiting labs this morning (2) Hydronephrosis Current Visit: No Status: Acute Assessment and plan: Resolved with bilateral nephrostomy tubes. Emmanuelle treatment per infectious disease Qualifiers: Hydronephrosis type: other Qualified Code(s): N13.39 - Other hydronephrosis (3) Prostate cancer Current Visit: No Status: Acute Progress Note Narrative: Patient states he is feeling better this morning. No labs have been drawn. Patient has positive emmanuelle in blood. Objective Initial Vital Signs Temp Pulse Resp BP Pulse Ox 99.7 F H 74 18 134/83 94 03/19/17 10:01 03/19/17 10:01 03/19/17 10:01 03/19/17 10:01 03/19/17 10:01 - General physical appearance Present: well developed - Abdomen Present: soft - Genitourinary Present: other (Clear urine in bilateral nephrostomy tubes) - Labs 03/24/17 04:58 03/24/17 04:58 - VTE Documentation of Mechanical Device: Graduated compression elastic hosiery Consult Discharge Plan - Plan Referrals: Saleem Ramirez DO [Primary Care Provider] - 03/29/17 1:00 pm (Please follow up as schedule...)
[2017-03-25] MEDS: Ondansetron 4 MG/2 ML VIAL IVP PRN ×2 (08:26→14:47)
--- NOTE | 2017-03-25 08:26 | Nephrology Progress Note ---
Date of Encounter: 03/25/17 Time of Encounter: 08:24 - Assessment and Plan (1) APOORVA (acute kidney injury) Current Visit: No Status: Acute His of yesterday the patient's renal function was starting to improve. Urine output is excellent. I have ordered lab studies for today. We will continue to monitor his renal function and hopefully we will see continued improvement. (2) Chronic kidney disease, stage III (moderate) Current Visit: No Status: Acute (3) Influenza Current Visit: Yes Status: Acute (4) Prostate CA Current Visit: No Status: Chronic Subjective Interval history: The patient is feeling much better. He is afebrile. He is putting out urine through both nephrostomy tubes. The urine is clear. Urine output is increased. Today's lab studies are pending. Objective - Vital Signs Vital signs: Vital Signs Temp Pulse Resp BP Pulse Ox 03/25/17 07:47 97.6 F 74 18 152/88 96 03/25/17 04:58 12 142/86 97 03/25/17 04:21 98.2 F 76 20 142/86 95 03/25/17 00:33 98.0 F 75 18 130/83 98 03/24/17 23:55 19 117/78 97 03/24/17 19:28 98.1 F 72 18 117/78 98 03/24/17 15:46 98.1 F 71 16 127/74 98 03/24/17 11:25 98.4 F 67 16 113/77 97 Intake and Output 03/24/17 03/25/17 03/25/17 23:59 07:59 15:59 Intake Total 240 / 240 0 / 0 Output Total 1005 / 1005 1600 / 1600 Balance -765 / -765 -1600 / -1600 Intake: IV Fluids 0 / 0 0.45% Sodium Chloride 1000 Ml 0 / 0 1000 Ml 1,000 ML @ 50 mls/hr IVC .Q20H [facility] Rx#:[id number] Oral 240 / 240 Output: Urine 0 / 0 Urine/Stool Mix 300 / 300 Left Nephrostomy 120 / 120 100 / 100 Right Nephrostomy 320 / 320 150 / 150 Wound Drainage 565 / 565 1050 / 1050 Left Back 195 / 195 500 / 500 Right Back 370 / 370 550 / 550 Other: Meal Dinner Percent of Meal Consumed 90% Stool Size Moderate Stool Consistency liquid Stool Color Brown Weight 108.5 kg Blood Glucose* 130 94 Patient Weight 03/25/17 23:59 Weight 108.5 kg - General Appearance Exam: Patient is alert and oriented. He is in no acute distress. Lungs essentially clear to auscultation. Heart regular rate and rhythm. Abdomen is benign. There is minimal lower extremity swelling. Bilateral percutaneous nephrostomy tubes are in place draining clear yellow urine. - Lab 03/24/17 04:58 03/24/17 04:58 Most recent lab results Calcium 7.2 mg/dL (8.6-10.3) L 03/24/17 04:58 Phosphorus 4.6 mg/dL (2.7-4.5) H 03/24/17 04:58 Magnesium 1.6 mg/dL (1.6-2.6) 03/24/17 04:58 - VTE Documentation of Mechanical Device: Graduated compression elastic hosiery Consult Discharge Plan - Plan Referrals: Saleem Ramirez DO [Primary Care Provider] - 03/29/17 1:00 pm (Please follow up as schedule...)
[2017-03-25] MEDS: Micafungin 100 MG in 0.9 % Sodium Chloride Mini Bag 100 ML IVPB SCH (08:27)
[2017-03-25] MEDS: Lactobacillus 1 EACH CAP.SPRINK PO SCH (08:27)
[2017-03-25] MEDS: Folic Acid 1 MG TABLET PO SCH (08:27)
[2017-03-25] MEDS: Cholecalciferol (D-3) 1,000 UNIT TABLET PO SCH (08:28)
[2017-03-25] MEDS: Insulin LISPRO 300 UNITS/3 ML VIAL SQ SCH ×7 (08:28→20:15)
[2017-03-25 08:51] LABS: Basophils % 0.4 %; Eosinophils # 0.4 K/mcL (0.0-0.6); Eosinophils % 7.7 %; Hematocrit 28.1 % (37.5-50.1); Hemoglobin 8.7 g/dL (12.9-16.9); Immature Granulocytes % 2.6 % (0-4); Lymphocytes # 0.4 K/mcL (0.6-4.6); Lymphocytes % 7.2 %; Mean Corpuscular Volume 90.4 fL (83.0-100.0); Mean Platelet Volume 8.9 fL (9.4-12.4); Monocytes # 0.4 K/mcL (0.0-1.3); Monocytes % 7.5 %; Neutrophils # 4.3 K/mcL (1.6-8.9); Platelet Count 337 K/mcL (140-400); Red Blood Count 3.11 M/mcL (4.19-5.50); Red Cell Distribution Width 14.6 % (11.5-14.5); Segmented Neutrophils % 74.6 %
[2017-03-25 09:13] LABS: Albumin 2.6 g/dL (3.5-5.7); Albumin/Globulin Ratio 0.8 (1.1-2.2); Bilirubin,Total 0.2 mg/dL (0.3-1.0); Calcium 7.7 mg/dL (8.6-10.3); Globulin 3.3 g/dL (2.4-3.5); Potassium 3.9 mEq/L (3.5-5.1); Total Protein 5.9 g/dL (6.4-8.9)
[2017-03-25] MEDS: *HR* OxyCODONE Immed Rel 5 MG TABLET PO PRN (09:17)
[2017-03-25] MEDS: Diltiazem CD (24hr) 240 MG CAPSULE PO SCH (10:37)
--- NOTE | 2017-03-25 10:48 | Internal Med Progress Note ---
Date of Encounter: 03/25/17 Time of Encounter: 10:06 - Assessment and plan (1) Pyonephrosis Current Visit: Yes Status: Acute Assessment and plan: remains high risk for sepsis currently afebrile s/p b/l nephrostomy tubes placement by IR(03/22/17) good urine output noted with clearance of pyouria urine culture prelim positive for Gram positive cocci and yeast species Continue Linezolid (Vanco discontinued due to poor renal function) continue Zosyn and Micafungin continue gentle IV fluid hydration and closely monitor for signs of volume overload (2) Acute kidney injury superimposed on chronic kidney disease Current Visit: Yes Status: Acute Assessment and plan: secondary to poorly functioning ureteral stents urology and nephrology on board and consultations appreciated s/p bilateral nephrostomy tubes placement (03/22/17) renal function improved from previous day continue empiric IV abx f/u final urine and blood cultures (3) Influenza Current Visit: Yes Status: Acute Assessment and plan: Pt recently had four days of Tamiflu prior to hospitalization will continue supportive care at this time IV fluids, bronchodilator support, tyelnol as needed (4) Generalized weakness Current Visit: Yes Status: Acute Assessment and plan: secondary to underlying infection continue supportive care pt encourage to get out of bed to chair with assistance (5) Intractable nausea and vomiting Current Visit: Yes Status: Acute Assessment and plan: continue supportive care anti-emetics as needed Qualifiers: Vomiting type: unspecified Qualified Code(s): R11.2 - Nausea with vomiting , unspecified (6) SOB (shortness of breath) Current Visit: Yes Status: Resolved Assessment and plan: resolved at this time (7) Anemia Current Visit: Yes Status: Chronic Assessment and plan: history of anemia of chronic disease secondary to CKD continue Aranesp as per nephrology H&H low but acceptable will continue to closely monitor transfuse for Hgb<7 Qualifiers: Anemia type: other cause Other causes of anemia: other cause, not classified Qualified Code(s): D64.89 - Other specified anemias (8) Diabetes Current Visit: Yes Status: Chronic Assessment and plan: continue home dose of levemir sliding scale insulin algorithm as needed monitor FS and BG ADA diet Qualifiers: Diabetes mellitus type: type 2 Diabetes mellitus complication status: with unspecified complications 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 Qualified Code(s): E11.8 - Type 2 diabetes mellitus with unspecified complications (9) Hypertension Current Visit: No Status: Chronic Assessment and plan: Noted to be hypertensive this morning started home medications added Hydralazine 10mg IV q6h prn SBP>150 will closely monitor BP Qualifiers: Hypertension type: essential hypertension Qualified Code(s): I10 - Essential (primary) hypertension (10) DVT prophylaxis Current Visit: Yes Status: Acute Assessment and plan: heparin SQ (11) Candidemia Current Visit: Yes Status: Acute Assessment and plan: ID and Optho evaluation appreciated continue Micafungin at this time f/u repeat blood cultures (12) Candiduria Current Visit: Yes Status: Acute Assessment and plan: continue Micafungin - Subjective Interval history: Patient seen and examined with present at bedside. Resting in bed and reports of feeling better compared to previous day. good urine output noted Currently saturating well on baseline nasal cannula. Blood culture 1/2 reported yeast species - Constitutional Vitals: Temp Pulse Resp BP Pulse Ox 97.6 F 74 18 152/88 96 03/25/17 07:47 03/25/17 07:47 03/25/17 07:47 03/25/17 07:47 03/25/17 07:47 General appearance: Present: cooperative, A&O X 3 (weak), pleasant, no acute distress, obese, answers questions appropriately - Head Head exam: Present: atraumatic, normocephalic - Eye Eye exam: Present: conjuntiva pink, sclera anicteric - Respiratory Respiratory exam: Present: CTAB. Absent: respiratory distress, wheezes - Cardiovascular Cardiovascular exam: Present: RRR, +S1, +S2. Absent: diastolic murmur, gallop, rubs, systolic murmur - GI/Abdominal GI/Abdominal exam: Present: normal bowel sounds, soft, no peritoneal signs. Absent: distended, tenderness - Extremities Exam Extremities exam: Present: warm, radial pulses palpable and symmetrical. Absent : calf tenderness, pedal edema - Back Exam Additional comments: b/l nephrostomy tubes in place Internal Medicine: Result - Labs CBC & Chem 7: 03/25/17 08:30 03/25/17 08:30 Labs: Short CBC 03/25/17 Range/Units 08:30 WBC 5.7 (4.3-11.1) K/mcL Hgb 8.7 L (12.9-16.9) g/dL Hct 28.1 L (37.5-50.1) % Plt Count 337 (140-400) K/mcL Neutrophils # 4.3 (1.6-8.9) K/mcL BMP 03/25/17 08:30 Sodium 138 Potassium 3.9 Chloride 106 Carbon Dioxide 24 BUN 37 H Creatinine 4.50 H Glucose 94 Calcium 7.7 L Liver Function 03/25/17 Range/Units 08:30 Total Bilirubin 0.2 L (0.3-1.0) mg/dL AST 14 (13-39) Units/L ALT 13 (7-52) Units/L Alkaline Phosphatase 47 (34-104) Units/L Albumin 2.6 L (3.5-5.7) g/dL - ABG Interpretation ABG results: PT/INR, D-dimer PT 13.2 Seconds (9.4-12.1) H 03/22/17 09:59 D-Dimer 1193 ng/mLFEU (0-500) H 03/19/17 17:05 - VTE Documentation of Mechanical Device: Graduated compression elastic hosiery Consult Discharge Plan - Plan Referrals: Saleem Ramirez DO [Primary Care Provider] - 03/29/17 1:00 pm (Please follow up as schedule...)
[2017-03-25] MEDS: *HR* HYDROcodone/Acet 5/325 mg TABLET PO PRN (19:42)
[2017-03-25] MEDS: Linezolid 600 MG TABLET PO SCH (21:12)
[2017-03-25] MEDS: Insulin DETEMIR 100 UNIT/ML X5UNITS SQ SCH (21:12)
[2017-03-26] MEDS: Ipratropium/Albuterol Neb 3 ML IH SCH ×4 (03:55→21:30)
[2017-03-26] MEDS: Ondansetron 4 MG/2 ML VIAL IVP PRN ×2 (04:37→13:46)
[2017-03-26] MEDS: *HR* Heparin 5,000 UNIT/ML VIAL SQ SCH ×3 (05:29→22:01)
[2017-03-26] MEDS: *HR* HYDROcodone/Acet 5/325 mg TABLET PO PRN (05:29)
[2017-03-26] MEDS: Insulin LISPRO 300 UNITS/3 ML VIAL SQ SCH ×7 (08:10→21:53)
--- NOTE | 2017-03-26 08:15 | Nephrology Progress Note ---
Date of Encounter: 03/26/17 Time of Encounter: 08:14 - Assessment and Plan (1) APOORVA (acute kidney injury) Current Visit: No Status: Acute The patient's renal function based on yesterday's lab continues to improve following the placement of nephrostomy tubes. Clinically the patient is improving as well. Laboratory studies today are pending. We will continue to monitor his renal function. (2) Chronic kidney disease, stage III (moderate) Current Visit: No Status: Acute (3) Influenza Current Visit: Yes Status: Acute (4) Prostate CA Current Visit: No Status: Chronic Subjective Interval history: The patient continues to improve clinically. As of yesterday creatinine was down to 4.50. Today's lab is pending. Urine output is excellent. Overall the patient is feeling better as well. His appetite is starting to improve. He remains afebrile. White count is normal. Objective - Vital Signs Vital signs: Vital Signs Temp Pulse Resp BP Pulse Ox 03/26/17 08:04 97.4 F L 65 18 128/82 93 03/26/17 04:23 98.4 F 66 17 140/84 97 03/26/17 03:56 14 143/83 100 03/26/17 00:28 16 143/83 98 03/25/17 23:06 98.3 F 82 18 143/83 93 03/25/17 20:12 98.2 F 70 18 135/78 94 03/25/17 15:45 98.3 F 69 18 124/72 93 03/25/17 11:43 98.0 F 72 18 132/72 95 03/25/17 11:15 73 Intake and Output 03/25/17 03/26/17 03/26/17 23:59 07:59 15:59 Intake Total 220 / 220 1100 / 1100 Output Total 1300 / 1300 625 / 625 Balance -1080 / -1080 475 / 475 Intake: IV Fluids 100 / 100 1000 / 1000 0.45% Sodium Chloride 1000 Ml 1000 / 1000 1000 Ml 1,000 ML @ 50 mls/hr IVC .Q20H [facility] Rx#:[id number] Mycamine 100 MG In 0.9 % Sodium 100 / 100 Chloride (Mini-Bag +) 100 ML @ 100 mls/hr IVPB DAILY [facility] Rx#: [id number] Oral 120 / 120 100 / 100 Output: Wound Drainage 1300 / 1300 625 / 625 Left Back 425 / 425 250 / 250 Right Back 875 / 875 375 / 375 Other: Meal Dinner Percent of Meal Consumed 100% Stool Size Moderate Stool Consistency soft Stool Color Brown # Bowel Movements 1 Weight 115.7 kg Blood Glucose* 145 150 Patient Weight 03/26/17 23:59 Weight 115.7 kg - General Appearance Exam: Patient is alert and oriented. He is in no acute distress. Lungs clear to auscultation. Heart regular rate and rhythm. Abdomen is benign. There is minimal lower extremity swelling. Bilateral percutaneous nephrostomy tubes are in place. - Lab 03/25/17 08:30 03/25/17 08:30 Most recent lab results Calcium 7.7 mg/dL (8.6-10.3) L 03/25/17 08:30 Phosphorus 4.6 mg/dL (2.7-4.5) H 03/24/17 04:58 Magnesium 1.6 mg/dL (1.6-2.6) 03/24/17 04:58 - VTE Documentation of Mechanical Device: Graduated compression elastic hosiery Consult Discharge Plan - Plan Referrals: Saleem Ramirez DO [Primary Care Provider] - 03/29/17 1:00 pm (Please follow up as schedule...)
--- NOTE | 2017-03-26 08:42 | Urology Progress Note ---
Date of Encounter: 03/26/17 Time of Encounter: 08:41 - Assessment and Plan (1) Acute kidney injury superimposed on chronic kidney disease Current Visit: Yes Status: Acute Assessment and plan: awaiting labs. patient has had good uop. keep bilateral pcn tubes in place (2) Hydronephrosis Current Visit: No Status: Acute Assessment and plan: sp pcn tubes. Qualifiers: Hydronephrosis type: other Qualified Code(s): N13.39 - Other hydronephrosis (3) Prostate cancer Current Visit: No Status: Acute Progress Note Narrative: Patient seen. feeling better. with some peripheral edema. labs pending. Objective Initial Vital Signs Temp Pulse Resp BP Pulse Ox 99.7 F H 74 18 134/83 94 03/19/17 10:01 03/19/17 10:01 03/19/17 10:01 03/19/17 10:01 03/19/17 10:01 - General physical appearance Present: well developed - Abdomen Present: soft - Genitourinary Present: other (clear urine in b/l pcn tubes) - Labs 03/25/17 08:30 03/25/17 08:30 Diabetes panel 03/25/17 Range/Units 08:30 Sodium 138 (136-145) mEq/L Potassium 3.9 (3.5-5.1) mEq/L Chloride 106 (98-107) mEq/L Carbon Dioxide 24 (23-29) mEq/L BUN 37 H (8-23) mg/dL Creatinine 4.50 H (0.70-1.30) mg/dL Glucose 94 (70-105) mg/dL Calcium 7.7 L (8.6-10.3) mg/dL AST 14 (13-39) Units/L ALT 13 (7-52) Units/L Alkaline Phosphatase 47 (34-104) Units/L Albumin 2.6 L (3.5-5.7) g/dL Calcium panel 03/25/17 Range/Units 08:30 Calcium 7.7 L (8.6-10.3) mg/dL Albumin 2.6 L (3.5-5.7) g/dL Pituitary panel 03/25/17 Range/Units 08:30 Sodium 138 (136-145) mEq/L Potassium 3.9 (3.5-5.1) mEq/L Chloride 106 (98-107) mEq/L Carbon Dioxide 24 (23-29) mEq/L BUN 37 H (8-23) mg/dL Creatinine 4.50 H (0.70-1.30) mg/dL Glucose 94 (70-105) mg/dL Calcium 7.7 L (8.6-10.3) mg/dL Adrenal panel 03/25/17 Range/Units 08:30 Sodium 138 (136-145) mEq/L Potassium 3.9 (3.5-5.1) mEq/L Chloride 106 (98-107) mEq/L Carbon Dioxide 24 (23-29) mEq/L BUN 37 H (8-23) mg/dL Creatinine 4.50 H (0.70-1.30) mg/dL Glucose 94 (70-105) mg/dL Calcium 7.7 L (8.6-10.3) mg/dL Total Bilirubin 0.2 L (0.3-1.0) mg/dL AST 14 (13-39) Units/L ALT 13 (7-52) Units/L Alkaline Phosphatase 47 (34-104) Units/L Albumin 2.6 L (3.5-5.7) g/dL - VTE Documentation of Mechanical Device: Graduated compression elastic hosiery Consult Discharge Plan - Plan Referrals: Saleem Ramirez DO [Primary Care Provider] - 03/29/17 1:00 pm (Please follow up as schedule...)
[2017-03-26 08:50] LABS: Hematocrit 26.5 % (37.5-50.1); Hemoglobin 7.9 g/dL (12.9-16.9); Mean Corpuscular HGB Conc 29.8 g/dL (31.6-35.5); Mean Corpuscular Hemoglobin 27.2 pg (28.0-33.3); Mean Corpuscular Volume 91.4 fL (83.0-100.0); Mean Platelet Volume 8.9 fL (9.4-12.4); Platelet Count 353 K/mcL (140-400); Red Cell Distribution Width 14.5 % (11.5-14.5)
[2017-03-26 09:04] LABS: Albumin 2.6 g/dL (3.5-5.7); Albumin/Globulin Ratio 0.8 (1.1-2.2); Bilirubin,Total 0.2 mg/dL (0.3-1.0); Calcium 7.5 mg/dL (8.6-10.3); Globulin 3.1 g/dL (2.4-3.5); Magnesium 1.3 mg/dL (1.6-2.6); Phosphorous 4.4 mg/dL (2.7-4.5); Potassium 3.8 mEq/L (3.5-5.1); Total Protein 5.7 g/dL (6.4-8.9)
--- NOTE | 2017-03-26 09:52 | Internal Med Progress Note ---
Date of Encounter: 03/26/17 Time of Encounter: 09:15 - Assessment and plan (1) Pyonephrosis Current Visit: Yes Status: Acute Assessment and plan: remains high risk for sepsis currently afebrile s/p b/l nephrostomy tubes placement by IR(03/22/17) good urine output noted with clearance of pyouria urine culture prelim positive for Staph Epi and Emmanuelle Tropicalis Continue Linezolid (Vanco discontinued due to poor renal function) continue Zosyn and Micafungin continue gentle IV fluid hydration and closely monitor for signs of volume overload (2) Acute kidney injury superimposed on chronic kidney disease Current Visit: Yes Status: Acute Assessment and plan: secondary to poorly functioning ureteral stents urology and nephrology on board and consultations appreciated s/p bilateral nephrostomy tubes placement (03/22/17) renal function improved from previous day continue empiric IV abx f/u final urine and blood cultures (3) Influenza Current Visit: Yes Status: Acute Assessment and plan: Pt recently had four days of Tamiflu prior to hospitalization will continue supportive care at this time IV fluids, bronchodilator support, tyelnol as needed (4) Generalized weakness Current Visit: Yes Status: Acute Assessment and plan: secondary to underlying infection continue supportive care pt encourage to get out of bed to chair with assistance (5) Intractable nausea and vomiting Current Visit: Yes Status: Acute Assessment and plan: continue supportive care anti-emetics as needed Qualifiers: Vomiting type: unspecified Qualified Code(s): R11.2 - Nausea with vomiting , unspecified (6) SOB (shortness of breath) Current Visit: Yes Status: Resolved Assessment and plan: resolved at this time (7) Anemia Current Visit: Yes Status: Chronic Assessment and plan: history of anemia of chronic disease secondary to CKD continue Aranesp as per nephrology H&H low but acceptable will continue to closely monitor transfuse for Hgb<7 Qualifiers: Anemia type: other cause Other causes of anemia: other cause, not classified Qualified Code(s): D64.89 - Other specified anemias (8) Diabetes Current Visit: Yes Status: Chronic Assessment and plan: continue home dose of levemir sliding scale insulin algorithm as needed monitor FS and BG ADA diet Qualifiers: Diabetes mellitus type: type 2 Diabetes mellitus complication status: with unspecified complications Diabetes mellitus 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 Qualified Code(s): E11.8 - Type 2 diabetes mellitus with unspecified complications (9) Hypertension Current Visit: No Status: Chronic Assessment and plan: BP within acceptable range continue home medications Hydralazine 10mg IV q6h prn SBP>150 will closely monitor BP Qualifiers: Hypertension type: essential hypertension Qualified Code(s): I10 - Essential (primary) hypertension (10) DVT prophylaxis Current Visit: Yes Status: Acute Assessment and plan: heparin SQ (11) Candidemia Current Visit: Yes Status: Acute Assessment and plan: ID and Optho evaluation appreciated continue Micafungin at this time f/u repeat blood cultures (12) Candiduria Current Visit: Yes Status: Acute Assessment and plan: continue Micafungin - Subjective Interval history: Patient seen and examined with present at bedside. Pt resting in bed and reports of feeling better. good urine output noted with improvement in renal function Pt encouraged to get out of bed to chair and increase activity as tolerated. PT evaluation requested - Constitutional Vitals: Temp Pulse Resp BP Pulse Ox 97.4 F L 65 18 128/82 93 03/26/17 08:04 03/26/17 08:04 03/26/17 08:04 03/26/17 08:04 03/26/17 08:04 General appearance: Present: cooperative, A&O X 3, pleasant, no acute distress, obese, answers questions appropriately - Head Head exam: Present: atraumatic, normocephalic - Eye Eye exam: Present: conjuntiva pink, sclera anicteric - Respiratory Respiratory exam: Present: CTAB. Absent: rales, respiratory distress, wheezes - Cardiovascular Cardiovascular exam: Present: RRR, +S1, +S2. Absent: diastolic murmur, gallop, rubs, systolic murmur - GI/Abdominal GI/Abdominal exam: Present: normal bowel sounds, soft, no peritoneal signs. Absent: distended, tenderness - Extremities Exam Extremities exam: Present: warm, radial pulses palpable and symmetrical. Absent : calf tenderness, pedal edema - Neurological Exam Neurological exam: Present: alert, oriented X3 Internal Medicine: Result - Labs CBC & Chem 7: 03/26/17 07:38 03/26/17 07:38 Labs: Short CBC 03/26/17 Range/Units 07:38 WBC 5.0 (4.3-11.1) K/mcL Hgb 7.9 L (12.9-16.9) g/dL Hct 26.5 L (37.5-50.1) % Plt Count 353 (140-400) K/mcL BMP 03/26/17 07:38 Sodium 139 Potassium 3.8 Chloride 107 Carbon Dioxide 24 BUN 35 H Creatinine 3.71 H Glucose 189 H Calcium 7.5 L Liver Function 03/26/17 Range/Units 07:38 Total Bilirubin 0.2 L (0.3-1.0) mg/dL AST 22 (13-39) Units/L ALT 19 (7-52) Units/L Alkaline Phosphatase 47 (34-104) Units/L Albumin 2.6 L (3.5-5.7) g/dL - ABG Interpretation ABG results: PT/INR, D-dimer PT 13.2 Seconds (9.4-12.1) H 03/22/17 09:59 D-Dimer 1193 ng/mLFEU (0-500) H 03/19/17 17:05 - VTE Documentation of Mechanical Device: Graduated compression elastic hosiery Consult Discharge Plan - Plan Referrals: Saleem Ramirez DO [Primary Care Provider] - 03/29/17 1:00 pm (Please follow up as schedule...)
[2017-03-26 10:25] LABS: Eosinophils # 0.3 K/mcL (0.0-0.6); Lymphocytes # 0.7 K/mcL (0.6-4.6); Monocytes # 0.3 K/mcL (0.0-1.3); Neutrophils # 3.6 K/mcL (1.6-8.9); Platelet Estimate Normal (Normal)
[2017-03-26] MEDS: Micafungin 100 MG in 0.9 % Sodium Chloride Mini Bag 100 ML IVPB SCH (11:06)
[2017-03-26] MEDS: Linezolid 600 MG TABLET PO SCH ×2 (11:07→22:01)
[2017-03-26] MEDS: Lactobacillus 1 EACH CAP.SPRINK PO SCH (11:07)
[2017-03-26] MEDS: Cholecalciferol (D-3) 1,000 UNIT TABLET PO SCH (11:07)
[2017-03-26] MEDS: Folic Acid 1 MG TABLET PO SCH (11:07)
[2017-03-26] MEDS: Diltiazem CD (24hr) 240 MG CAPSULE PO SCH (11:07)
[2017-03-26] MEDS: Insulin DETEMIR 100 UNIT/ML X5UNITS SQ SCH (22:01)
[2017-03-26] MEDS: *HR* Promethazine 25 MG/ML VIAL IVP PRN (23:16)
[2017-03-26] MEDS: *HR* OxyCODONE Immed Rel 5 MG TABLET PO PRN (23:17)
[2017-03-27] MEDS: Ipratropium/Albuterol Neb 3 ML IH SCH ×4 (03:46→21:10)
[2017-03-27 03:48] LABS: Hemoglobin 7.9 g/dL (12.9-16.9); Mean Corpuscular HGB Conc 31.6 g/dL (31.6-35.5); Mean Corpuscular Hemoglobin 28.5 pg (28.0-33.3); Mean Corpuscular Volume 90.3 fL (83.0-100.0); Mean Platelet Volume 8.7 fL (9.4-12.4); Monocytes # 0.4 K/mcL (0.0-1.3); Platelet Count 359 K/mcL (140-400); Red Blood Count 2.77 M/mcL (4.19-5.50); Red Cell Distribution Width 14.1 % (11.5-14.5)
[2017-03-27 04:09] LABS: Albumin 2.6 g/dL (3.5-5.7); Albumin/Globulin Ratio 0.8 (1.1-2.2); Bilirubin,Total 0.2 mg/dL (0.3-1.0); Calcium 7.7 mg/dL (8.6-10.3); Globulin 3.1 g/dL (2.4-3.5); Potassium 3.7 mEq/L (3.5-5.1); Total Protein 5.7 g/dL (6.4-8.9)
[2017-03-27 04:11] LABS: Magnesium 1.7 mg/dL (1.6-2.6); Phosphorous 3.2 mg/dL (2.7-4.5)
[2017-03-27 05:00] LABS: Eosinophils # 0.2 K/mcL (0.0-0.6); Lymphocytes # 0.7 K/mcL (0.6-4.6); Neutrophils # 3.5 K/mcL (1.6-8.9)
[2017-03-27 05:01] LABS: Macrocytosis Present (Not Present); Platelet Clumps Few (Not Present); Platelet Estimate Normal (Normal)
[2017-03-27] MEDS: *HR* Heparin 5,000 UNIT/ML VIAL SQ SCH ×3 (06:28→23:23)
[2017-03-27] MEDS: Folic Acid 1 MG TABLET PO SCH (08:44)
[2017-03-27] MEDS: Linezolid 600 MG TABLET PO SCH (08:44)
[2017-03-27] MEDS: Cholecalciferol (D-3) 1,000 UNIT TABLET PO SCH (08:44)
[2017-03-27] MEDS: Lactobacillus 1 EACH CAP.SPRINK PO SCH (08:44)
[2017-03-27] MEDS: Micafungin 100 MG in 0.9 % Sodium Chloride Mini Bag 100 ML IVPB SCH (08:45)
[2017-03-27] MEDS: Diltiazem CD (24hr) 240 MG CAPSULE PO SCH (08:45)
[2017-03-27] MEDS: Insulin LISPRO 300 UNITS/3 ML VIAL SQ SCH ×7 (08:46→20:01)
[2017-03-27] MEDS: Ondansetron 4 MG/2 ML VIAL IVP PRN (08:53)
[2017-03-27] MEDS ORDERED: Darbepoetin 100 MCG/0.5 ML SYRINGE SQ SCH (09:00)
--- NOTE | 2017-03-27 10:13 | Nephrology Progress Note ---
Date of Encounter: 03/27/17 Time of Encounter: 09:50 - Assessment and Plan (1) APOORVA (acute kidney injury) Current Visit: No Status: Acute APOORVA superimposed on CKD4. S/P bilateral neph tube exchange, followed by septic shower. Renal fct continues to improve, creat 3.26. Will continue to monitor, continue IV hydration as alberto., I&O, avoid nephrotoxins. Subjective Interval history: Laying quietly, states feeling better. Objective - Vital Signs Vital signs: Vital Signs Temp Pulse Resp BP Pulse Ox 03/27/17 08:30 98.3 F 70 18 148/81 95 03/27/17 03:13 98.9 F 68 15 144/82 99 03/26/17 23:23 97.9 F 74 16 161/90 94 03/26/17 20:40 98.7 F 69 16 147/82 94 03/26/17 16:00 98.9 F 77 18 128/74 95 03/26/17 12:00 97.4 F L 76 20 135/74 94 Intake and Output 03/26/17 03/27/17 03/27/17 23:59 07:59 15:59 Intake Total 1100 / 1100 Output Total 1125 / 1125 625 / 625 575 / 575 Balance -25 / -25 -625 / -625 -575 / -575 Intake: IV Fluids 1100 / 1100 0.45% Sodium Chloride 1000 Ml 1000 / 1000 1000 Ml 1,000 ML @ 50 mls/hr IVC .Q20H RAUL Rx#:[id number] Mycamine 100 MG In 0.9 % Sodium 100 / 100 Chloride (Mini-Bag +) 100 ML @ 100 mls/hr IVPB DAILY RAUL Rx#: [id number] Output: Wound Drainage 1125 / 1125 625 / 625 575 / 575 Left Back 425 / 425 225 / 225 300 / 300 Right Back 700 / 700 400 / 400 275 / 275 Other: Meal Dinner Percent of Meal Consumed 100% Weight 115.2 kg Blood Glucose* 189 163 Patient Weight 03/27/17 23:59 Weight 115.2 kg - General Appearance General appearance: Present: well-developed, well-nourished, appears started age EENT: Present: mucous membranes moist Neck: Present: no JVD Respiratory: Present: clear Cardiology: Present: edema, regular rate, regular rhythm Additional Comments: Mild LE edema, dependent edema B/L forearms. Gastrointestinal: Present: normoactive bowel sounds, no tenderness Integumentary: Present: warm and dry Neurologic: Present: alert and oriented x3 - Lab 03/27/17 03:13 03/27/17 03:13 Most recent lab results Calcium 7.7 mg/dL (8.6-10.3) L 03/27/17 03:13 Phosphorus 3.2 mg/dL (2.7-4.5) 03/27/17 03:13 Magnesium 1.7 mg/dL (1.6-2.6) 03/27/17 03:13 - VTE Documentation of Mechanical Device: Graduated compression elastic hosiery Consult Discharge Plan - Plan Referrals: Saleem Ramirez DO [Primary Care Provider] - 03/29/17 1:00 pm (Please follow up as schedule...)
--- NOTE | 2017-03-27 11:09 | Internal Med Progress Note ---
Date of Encounter: 03/27/17 Time of Encounter: 09:45 - Assessment and plan (1) Pyonephrosis Current Visit: Yes Status: Acute Assessment and plan: remains high risk for sepsis currently afebrile s/p b/l nephrostomy tubes placement by IR(03/22/17) good urine output noted with clearance of pyouria urine culture prelim positive for Staph Epi and Emmanuelle Tropicalis Continue Linezolid (Vanco discontinued due to poor renal function) continue Zosyn and Micafungin continue gentle IV fluid hydration and closely monitor for signs of volume overload ID evaluation appreciated (2) Acute kidney injury superimposed on chronic kidney disease Current Visit: Yes Status: Acute Assessment and plan: secondary to poorly functioning ureteral stents urology and nephrology on board and consultations appreciated s/p bilateral nephrostomy tubes placement (03/22/17) renal function improved from previous day continue empiric IV abx f/u final urine and blood cultures (3) Influenza Current Visit: Yes Status: Acute Assessment and plan: Pt recently had four days of Tamiflu prior to hospitalization clinically improving will continue supportive care at this time IV fluids, bronchodilator support, tyelnol as needed (4) Generalized weakness Current Visit: Yes Status: Acute Assessment and plan: secondary to underlying infection continue supportive care pt encourage to get out of bed to chair with assistance (5) Intractable nausea and vomiting Current Visit: Yes Status: Acute Assessment and plan: continue supportive care anti-emetics as needed Qualifiers: Vomiting type: unspecified Qualified Code(s): R11.2 - Nausea with vomiting , unspecified (6) SOB (shortness of breath) Current Visit: Yes Status: Resolved Assessment and plan: resolved at this time (7) Anemia Current Visit: Yes Status: Chronic Assessment and plan: history of anemia of chronic disease secondary to CKD continue Aranesp as per nephrology H&H low but acceptable will continue to closely monitor transfuse for Hgb<7 Qualifiers: Anemia type: other cause Other causes of anemia: other cause, not classified Qualified Code(s): D64.89 - Other specified anemias (8) Diabetes Current Visit: Yes Status: Chronic Assessment and plan: continue home dose of levemir sliding scale insulin algorithm as needed monitor FS and BG ADA diet Qualifiers: Diabetes mellitus type: type 2 Diabetes mellitus complication status: with unspecified complications 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: 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 correction insulin use status Qualified Code(s): E11.8 - Type 2 diabetes mellitus with unspecified complications (9) Hypertension Current Visit: No Status: Chronic Assessment and plan: BP within acceptable range continue home medications Hydralazine 10mg IV q6h prn SBP>150 will closely monitor BP Qualifiers: Hypertension type: essential hypertension Qualified Code(s): I10 - Essential (primary) hypertension (10) DVT prophylaxis Current Visit: Yes Status: Acute Assessment and plan: heparin SQ (11) Candidemia Current Visit: Yes Status: Acute Assessment and plan: ID and Optho evaluation appreciated continue Micafungin at this time f/u repeat blood cultures (12) Candiduria Current Visit: Yes Status: Acute Assessment and plan: continue Micafungin - Subjective Interval history: Patient seen and examined with present at bedside. Pt resting in bed and reports of feeling better. good urine output noted with improvement in renal function Pt encouraged to get out of bed to chair and increase activity as tolerated. PT evaluation requested - Constitutional Vitals: Temp Pulse Resp BP Pulse Ox 98.3 F 70 18 148/81 95 03/27/17 08:30 03/27/17 08:30 03/27/17 08:30 03/27/17 08:30 03/27/17 08:30 General appearance: Present: cooperative, A&O X 3, pleasant, no acute distress, obese, answers questions appropriately - Head Head exam: Present: atraumatic, normocephalic - Eye Eye exam: Present: conjuntiva pink, sclera anicteric - Respiratory Respiratory exam: Present: CTAB. Absent: accessory muscle use, rales, rhonchi, wheezes - Cardiovascular Cardiovascular exam: Present: RRR, +S1, +S2. Absent: diastolic murmur, gallop, rubs, systolic murmur - GI/Abdominal GI/Abdominal exam: Present: normal bowel sounds, soft, no peritoneal signs. Absent: distended, tenderness - Extremities Exam Extremities exam: Present: warm, radial pulses palpable and symmetrical. Absent : calf tenderness - Neurological Exam Neurological exam: Present: alert, oriented X3 - Psychiatric Psychiatric exam: Present: normal affect, normal mood Internal Medicine: Result - Labs CBC & Chem 7: 03/27/17 03:13 03/27/17 03:13 Labs: Short CBC 03/27/17 Range/Units 03:13 WBC 5.0 (4.3-11.1) K/mcL Hgb 7.9 L (12.9-16.9) g/dL Hct 25.0 L (37.5-50.1) % Plt Count 359 (140-400) K/mcL Neutrophils # 3.5 (1.6-8.9) K/mcL BMP 03/27/17 03:13 Sodium 140 Potassium 3.7 Chloride 108 H Carbon Dioxide 24 BUN 33 H Creatinine 3.26 H Glucose 146 H Calcium 7.7 L Liver Function 03/27/17 Range/Units 03:13 Total Bilirubin 0.2 L (0.3-1.0) mg/dL AST 27 (13-39) Units/L ALT 25 (7-52) Units/L Alkaline Phosphatase 47 (34-104) Units/L Albumin 2.6 L (3.5-5.7) g/dL - ABG Interpretation ABG results: PT/INR, D-dimer PT 13.2 Seconds (9.4-12.1) H 03/22/17 09:59 D-Dimer 1193 ng/mLFEU (0-500) H 03/19/17 17:05 - VTE Documentation of Mechanical Device: Graduated compression elastic hosiery Consult Discharge Plan - Plan Referrals: Saleem Ramirez DO [Primary Care Provider] - 03/29/17 1:00 pm (Please follow up as schedule...)
--- NOTE | 2017-03-27 13:16 | Infectious Disease Progress No ---
Date of Encounter: 03/27/17 Time of Encounter: 13:14 - Assessment and Plan (1) Sepsis Current Visit: No Status: Acute The patient developed three SIRS criteria on 03/22/17. Likely secondary to pyonephrosis and candidemia. Improved. WBC has normalized. He has been afebrile x 24 hours. Tachycardia has resolved. Blood cultures drawn 03/19/17 are NGTD x 2 sets. Repeat blood cultures drawn 03/22/17 at 1000 are NGTD x 2 sets. Additional blood cultures drawn 03/22/17 at 1600 are positive 1/2 sets for Yeast species. The PCR picked up C. albicans and C. tropicalis, but the culture only grew C. albicans. Repeat blood cultures drawn 03/26/17 are pending x 2 sets. Qualifiers: Sepsis type: sepsis due to unspecified organism Qualified Code(s): A41.9 - Sepsis, unspecified organism (2) Candidemia Current Visit: Yes Status: Acute Causative organism: C. albicans and C. tropicalis. Source for the C. tropicalis likely the urinary system/pyonephrosis, but the C. albicans source is unclear --> contaminant vs. true infection. Blood cultures drawn 03/19/17 are NGTD x 2 sets. Repeat blood cultures drawn 03/22/17 at 1000 are NGTD x 2 sets. Additional blood cultures drawn 03/22/17 at 1600 are positive 1/2 sets for Yeast species. The PCR picked up C. albicans and C. tropicalis, but the culture grew only C. albicans. The patient is known to have bladder colonization with C. tropicalis. This set of blood cultures were drawn after the patient had bilateral nephrostomy tubes placed. Sensitivity shows fluconazole-sensitive. Repeat blood cultures x 2 sets drawn 03/26/17 are pending. Opthalmology consult noted and appreciated. No evidence of endopthalmitis. Discontinue Micafungin. Start fluconazole 400mg IV x 1 dose now and fluconazole 200mg IV daily starting tomorrow. Dose-adjusted for low creatinine clearance. Dose discussed with Miroslava Byrd. Duration of treatment depends on the clinical picture, but likely 14 days from the first set of negative blood cultures. Monitor renal and liver function and dose-adjust antibiotics. (3) Candiduria Current Visit: Yes Status: Acute Causative organism unclear, but likely C. tropicalis given the patient's past culture history. The patient has a history of colonization of the bladder, but given that the patient now has pyonephrosis and candidemia, will need to treat. Discontinue Micafungin and start fluconazole as above. Duration of treatment depends on the clinical picture, but likely 14 days. The patient does have bilateral ureteral stents which may need to be removed due to decrease the risk of seeding. Will discuss with Urology. (4) UTI (urinary tract infection) Current Visit: No Status: Acute Colonization vs. true infection. Causative organism: C. tropicalis and S. epi. The patient is known to be colonized with both. Continue antifungals as above. Discontinue linezolid as S. epi is likely a colonizer. Qualifiers: Urinary tract infection type: acute cystitis Hematuria presence: without hematuria Qualified Code(s): N30.00 - Acute cystitis without hematuria (5) Pyonephrosis Current Visit: Yes Status: Acute Likely secondary to hydronephrosis. Causative organism unclear, but likely C. tropicalis. Renal ultrasound showed moderate bilateral hydronephrosis. CT of the abdomen and pelvis completed 03/22/17 showed bilateral hydroureteronephrosis with perinephric stranding bilaterally and findings consistent with cystitis. Urology consulted. Recommended placing bilateral nephrostomy tubes due to worsening renal function and sepsis-like picture. Status post bilateral PNT placement 03/22/17. Pus noted from the left tube initially with clear, blood-tinged urine afterwards. Specimen collected from the left renal system was positive for large leukocyte esterase, but the culture was negative. Fevers, leukocytosis, and tachycardia post-procedure likely secondary to septic shower.--> improved. PNT management per the urology team. Fluconazole as above. Stop linezolid. (6) Influenza Current Visit: Yes Status: Acute RIP positive for influenza A. Supportive care. (7) Acute kidney injury superimposed on chronic kidney disease Current Visit: Yes Status: Acute Likely multifactorial: bilateral hydronephrosis + dehydration + hypotension. Nephrology consulted and following. Renal status improved after PNT placement. Continue to trend. Dose-adjust antibiotics. Avoid nephrotoxins as able. (8) Hydronephrosis Current Visit: No Status: Acute Likely secondary to obstruction from the prostate cancer. Status post PNT 03/22/17. Urology consulted and following. Qualifiers: Hydronephrosis type: other Qualified Code(s): N13.39 - Other hydronephrosis (9) Dehydration Current Visit: Yes Status: Acute Secondary to poor PO intake. Improved. Management per the primary team. (10) Generalized weakness Current Visit: Yes Status: Acute (11) Intractable nausea and vomiting Current Visit: Yes Status: Resolved Likely secondary to infectious process. Resolved. Symptomatic management. Qualifiers: Vomiting type: unspecified Qualified Code(s): R11.2 - Nausea with vomiting , unspecified (12) Diabetes mellitus Current Visit: No Status: Chronic Qualifiers: Diabetes mellitus type: type 2 Diabetes mellitus complication status: with kidney complications Diabetes mellitus complication detail: with chronic kidney disease Diabetes mellitus care home insulin use: with care home use Chronic kidney disease stage: stage 3 (moderate) Qualified Code(s): E11.22 - Type 2 diabetes mellitus with diabetic chronic kidney disease; N18.3 - Chronic kidney disease, stage 3 (moderate); N18.3 - Chronic kidney disease, stage 3 ( moderate); 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 Status post TURP with ureteral stents in Jan 2016. Underwent 39 radiation treatments from August 2016 to October 2016 at [facility]. Currently undergoing Lupron injections with last one in February 2017, next one May 2017. - Subjective Interval history: Patient seen and examined. No acute events noted overnight. Patient states that overall he feels better. Denies fevers, chills, or rigors. Denies chest pain, shortness of breath, or cough. Reports nausea this morning, but denies currently. Denies vomiting, diarrhea, or abdominal pain. Complains of mild low back pain, mainly at the nephrostomy tube sites, improved. States appetite is better. Reports dysuria, but denies frequency. Denies oral thrush or skin lesions. Infect Dis PN-Objective Data - Labs CBC & Chem 7: 03/27/17 03:13 03/27/17 03:13 Labs: Laboratory Results - last 24 hr 03/26/17 03/26/17 03/26/17 07:39 11:38 16:01 WBC RBC Hgb Hct MCV MCH MCHC RDW Plt Count MPV Seg Neutrophils % Band Neutrophils % Lymphocytes % Monocytes % Eosinophils % Myelocytes % Neutrophils # Lymphocytes # Monocytes # Eosinophils # Platelet Estimate Clumped Platelets Macrocytosis Sodium Potassium Chloride Carbon Dioxide BUN Creatinine Est GFR ( Amer) Est GFR (Non-Af Amer) BUN/Creatinine Ratio Glucose POC Glucose 180 H 134 H 73 Calculated Osmolality Calcium Phosphorus Magnesium Total Bilirubin AST ALT Alkaline Phosphatase Serum Total Protein Albumin Globulin Albumin/Globulin Ratio 03/26/17 03/27/17 03/27/17 20:42 03:13 03:13 WBC 5.0 RBC 2.77 L Hgb 7.9 L Hct 25.0 L MCV 90.3 MCH 28.5 MCHC 31.6 RDW 14.1 Plt Count 359 MPV 8.7 L Seg Neutrophils % 68.0 Band Neutrophils % 2.0 Lymphocytes % 14.0 Monocytes % 8.0 Eosinophils % 4.0 Myelocytes % 4.0 H Neutrophils # 3.5 Lymphocytes # 0.7 Monocytes # 0.4 Eosinophils # 0.2 Platelet Estimate Normal Clumped Platelets Few A Macrocytosis Present A Sodium 140 Potassium 3.7 Chloride 108 H Carbon Dioxide 24 BUN 33 H Creatinine 3.26 H Est GFR ( Amer) 23 L Est GFR (Non-Af Amer) 19 L BUN/Creatinine Ratio 10 Glucose 146 H POC Glucose 189 H Calculated Osmolality 300 Calcium 7.7 L Phosphorus Magnesium Total Bilirubin 0.2 L AST 27 ALT 25 Alkaline Phosphatase 47 Serum Total Protein 5.7 L Albumin 2.6 L Globulin 3.1 Albumin/Globulin Ratio 0.8 L 03/27/17 03/27/17 03:13 08:43 WBC RBC Hgb Hct MCV MCH MCHC RDW Plt Count MPV Seg Neutrophils % Band Neutrophils % Lymphocytes % Monocytes % Eosinophils % Myelocytes % Neutrophils # Lymphocytes # Monocytes # Eosinophils # Platelet Estimate Clumped Platelets Macrocytosis Sodium Potassium Chloride Carbon Dioxide BUN Creatinine Est GFR ( Amer) Est GFR (Non-Af Amer) BUN/Creatinine Ratio Glucose POC Glucose 163 H Calculated Osmolality Calcium Phosphorus 3.2 Magnesium 1.7 Total Bilirubin AST ALT Alkaline Phosphatase Serum Total Protein Albumin Globulin Albumin/Globulin Ratio Cultures: Cultures 03/22/17 00:46 Urine Culture - Preliminary Urine,Catheterized Staphylococcus epidermidis Emmanuelle tropicalis 03/22/17 16:13 Blood Culture - Final Peripheral Venipuncture Emmanuelle albicans 03/22/17 09:59 Blood Culture - Preliminary Peripheral Venipuncture No growth. 03/22/17 16:08 Blood Culture - Preliminary Peripheral Venipuncture No growth. 03/22/17 09:59 Blood Culture - Preliminary Peripheral Venipuncture No growth. 03/22/17 15:40 Urine Culture - Final Urine,Kidney No significant growth. Serology 03/23/17 03/22/17 03/22/17 Range/Units 09:15 16:13 15:40 Ur Specimen Adequacy Mucoid Specimen A Urine Color (Yellow) Urine Clarity (Clear) Urine pH (5.0-8.0) pH Units Ur Specific [place] (1.010-1.025) Urine Protein (Neg-Trace) mg/dL Urine Glucose (UA) (Normal) mg/dL Urine Ketones (Negative) mg/dL Urine Blood (Negative) Urine Nitrite (Negative) Urine Bilirubin (Negative) Urine Urobilinogen (Normal) mg/dL Ur Leukocyte Esterase (Negative) Urine Microscopic RBC Present (0-3) per hpf Urine Microscopic WBC Present (0-3) per hpf Ur Squamous Epith Cells (None-Few) per lpf Urine Bacteria (None-Few) per hpf Urine Yeast Ur Culture Indicated? YES A (NO) A. baumannii (PCR) Not Detected (Not Detect) Emmanuelle albicans (PCR) DETECTED A (Not Detect) C. glabrata (PCR) Not Detected (Not Detect) C. krusei (PCR) Not Detected (Not Detect) C. parapsilosis (PCR) Not Detected (Not Detect) C. tropicalis (PCR) DETECTED A (Not Detect) Enterobacteriac sp PCR Not Detected (Not Detect) E. cloacae complex PCR Not Detected (Not Detect) Enterococcus sp PCR Not Detected (Not Detect) E. coli (PCR) Not Detected (Not Detect) H. influenzae (PCR) Not Detected (Not Detect) Hep Bs Antigen Nonreactive (Nonreactive) Hep Bs Antibody 4.27 mIU/mL Klebsiella oxytoca PCR Not Detected (Not Detect) Klebsiella pneumoniae Not Detected (Not Detect) List. monocytogenes PCR Not Detected (Not Detect) N. meningitidis (PCR) Not Detected (Not Detect) Proteus species (PCR) Not Detected (Not Detect) Serratia marcescens PCR Not Detected (Not Detect) Staphylococcus sp PCR Not Detected (Not Detect) Staph aureus (PCR) Not Detected (Not Detect) mecA-Methicil Res Gene Not Detected (Not Detect) Streptococcus sp PCR Not Detected (Not Detect) Group A Strep DNA Not Detected (Not Detect) Group B Strep (PCR) Not Detected (Not Detect) Strep pneumoniae (PCR) Not Detected (Not Detect) P. aeruginosa (PCR) Not Detected (Not Detect) Juan/B-Vanco Res Genes Not Detected (Not Detect) KPC (blaKPC) Detect PCR Not Detected (Not Detect) 03/22/17 Range/Units 00:46 Ur Specimen Adequacy Urine Color Yellow (Yellow) Urine Clarity Turbid A (Clear) Urine pH 6.5 (5.0-8.0) pH Units Ur Specific [place] 1.013 (1.010-1.025) Urine Protein 100 H (Neg-Trace) mg/dL Urine Glucose (UA) Normal (Normal) mg/dL Urine Ketones Negative (Negative) mg/dL Urine Blood Large H (Negative) Urine Nitrite Negative (Negative) Urine Bilirubin Negative (Negative) Urine Urobilinogen Normal (Normal) mg/dL Ur Leukocyte Esterase Large H (Negative) Urine Microscopic RBC Present (0-3) per hpf Urine Microscopic WBC TNTC H (0-3) per hpf Ur Squamous Epith Cells Present (None-Few) per lpf Urine Bacteria Present (None-Few) per hpf Urine Yeast Test Not Performed Ur Culture Indicated? (NO) A. baumannii (PCR) (Not Detect) Emmanuelle albicans (PCR) (Not Detect) C. glabrata (PCR) (Not Detect) C. krusei (PCR) (Not Detect) C. parapsilosis (PCR) (Not Detect) C. tropicalis (PCR) (Not Detect) Enterobacteriac sp PCR (Not Detect) E. cloacae complex PCR (Not Detect) Enterococcus sp PCR (Not Detect) E. coli (PCR) (Not Detect) H. influenzae (PCR) (Not Detect) Hep Bs Antigen (Nonreactive) Hep Bs Antibody mIU/mL Klebsiella oxytoca PCR (Not Detect) Klebsiella pneumoniae (Not Detect) List. monocytogenes PCR (Not Detect) N. meningitidis (PCR) (Not Detect) Proteus species (PCR) (Not Detect) Serratia marcescens PCR (Not Detect) Staphylococcus sp PCR (Not Detect) Staph aureus (PCR) (Not Detect) mecA-Methicil Res Gene (Not Detect) Streptococcus sp PCR (Not Detect) Group A Strep DNA (Not Detect) Group B Strep (PCR) (Not Detect) Strep pneumoniae (PCR) (Not Detect) P. aeruginosa (PCR) (Not Detect) Juan/B-Vanco Res Genes (Not Detect) KPC (blaKPC) Detect PCR (Not Detect) Exam - Constitutional Vitals: Temp Pulse Resp BP Pulse Ox 98.2 F 70 16 138/76 95 03/27/17 11:00 03/27/17 11:00 03/27/17 11:00 03/27/17 11:18 03/27/17 11:00 General appearance: cooperative, no acute distress, obese - Head Head exam: Present: atraumatic, normal inspection, normocephalic - Eye Eye exam: Present: EOMI, normal appearance, PERRL Pupils: Present: normal accommodation Additional comments: No subconjunctival hemorrhage noted. - ENT ENT exam: Present: mucous membranes moist - Neck Neck exam: Present: normal inspection - Respiratory Respiratory exam: Present: CTAB. Absent: rales, respiratory distress, rhonchi, wheezes - Cardiovascular Cardiovascular exam: Present: RRR, +S1, +S2 - GI/Abdominal GI/Abdominal exam: Present: normal bowel sounds, soft. Absent: distended, tenderness - Extremities Exam Extremities exam: Present: normal inspection, pedal edema (1+ BLE, non-pitting) . Absent: joint swelling, tenderness - Back Exam Back exam: Present: CVA tenderness (L), CVA tenderness (R), normal inspection. Absent: paraspinal tenderness, vertebral tenderness Additional comments: Bilateral PNT with clear yellow urine. - Neurological Exam Neurological exam: Present: alert, oriented X3, no focal deficits - Psychiatric Psychiatric exam: Present: normal affect, normal mood - Skin Skin exam: Present: dry, intact, normal color, warm Additional comments: No endocarditis stigmata noted. - VTE Documentation of Mechanical Device: Graduated compression elastic hosiery Consult Discharge Plan - Plan Referrals: Saleem Ramirez DO [Primary Care Provider] - 03/29/17 1:00 pm (Please follow up as schedule...) - Attending Attestation I examined this patient and my medical decision-making was reviewed with the Resident Physician. I agree with the documented findings, disposition and treatment plan as described except to the extent set forth below. d/c micafungin start diflucan dose adjust for CrCl appreciate urology recommendations
[2017-03-27] MEDS ORDERED: Fluconazole 400 MG/200 ML 400 MG/200 ML BAG IVPB ONE (15:30)
--- NOTE | 2017-03-27 16:46 | Urology Progress Note ---
Date of Encounter: 03/27/17 Time of Encounter: 16:44 - Assessment and Plan (1) Candidemia Current Visit: Yes Status: Acute Assessment and plan: Appreciate ID support. We'll continue nephrostomy tubes. (2) Hydronephrosis Current Visit: No Status: Acute Assessment and plan: Status post bilateral nephrostomy tube placement. He still has indwelling stents. I will likely remove these in the office. We briefly discussed urinary diversion versus continuation of the nephrostomy tubes. Given his performance status, he is likely best managed with indwelling nephrostomy tubes. Urology will follow along. Qualifiers: Hydronephrosis type: other Qualified Code(s): N13.39 - Other hydronephrosis Progress Note Narrative: Status post bilateral percutaneous nephrostomy tubes. Blood culture is positive for Emmanuelle albicans. Clinically, he is improving. Urine is draining clear out of both nephrostomy tubes. Objective Initial Vital Signs Temp Pulse Resp BP Pulse Ox 99.7 F H 74 18 134/83 94 03/19/17 10:01 03/19/17 10:01 03/19/17 10:01 03/19/17 10:01 03/19/17 10:01 - General physical appearance Present: well developed, well nourished, no distress - Respiratory Present: normal respiratory effort - Abdomen Present: soft - Genitourinary Urine Appearance: Present: Clear - Labs 03/27/17 03:13 03/27/17 03:13 Diabetes panel 03/27/17 Range/Units 03:13 Sodium 140 (136-145) mEq/L Potassium 3.7 (3.5-5.1) mEq/L Chloride 108 H (98-107) mEq/L Carbon Dioxide 24 (23-29) mEq/L BUN 33 H (8-23) mg/dL Creatinine 3.26 H (0.70-1.30) mg/dL Glucose 146 H (70-105) mg/dL Calcium 7.7 L (8.6-10.3) mg/dL AST 27 (13-39) Units/L ALT 25 (7-52) Units/L Alkaline Phosphatase 47 (34-104) Units/L Albumin 2.6 L (3.5-5.7) g/dL Calcium panel 03/27/17 03/27/17 Range/Units 03:13 03:13 Calcium 7.7 L (8.6-10.3) mg/dL Phosphorus 3.2 (2.7-4.5) mg/dL Albumin 2.6 L (3.5-5.7) g/dL Pituitary panel 03/27/17 Range/Units 03:13 Sodium 140 (136-145) mEq/L Potassium 3.7 (3.5-5.1) mEq/L Chloride 108 H (98-107) mEq/L Carbon Dioxide 24 (23-29) mEq/L BUN 33 H (8-23) mg/dL Creatinine 3.26 H (0.70-1.30) mg/dL Glucose 146 H (70-105) mg/dL Calcium 7.7 L (8.6-10.3) mg/dL Adrenal panel 03/27/17 Range/Units 03:13 Sodium 140 (136-145) mEq/L Potassium 3.7 (3.5-5.1) mEq/L Chloride 108 H (98-107) mEq/L Carbon Dioxide 24 (23-29) mEq/L BUN 33 H (8-23) mg/dL Creatinine 3.26 H (0.70-1.30) mg/dL Glucose 146 H (70-105) mg/dL Calcium 7.7 L (8.6-10.3) mg/dL Total Bilirubin 0.2 L (0.3-1.0) mg/dL AST 27 (13-39) Units/L ALT 25 (7-52) Units/L Alkaline Phosphatase 47 (34-104) Units/L Albumin 2.6 L (3.5-5.7) g/dL - VTE Documentation of Mechanical Device: Graduated compression elastic hosiery Consult Discharge Plan - Plan Referrals: Saleem Ramirez DO [Primary Care Provider] - 03/29/17 1:00 pm (Please follow up as schedule...)
[2017-03-27] MEDS: *HR* HYDROcodone/Acet 5/325 mg TABLET PO PRN (19:50)
[2017-03-27] MEDS: Insulin DETEMIR 100 UNIT/ML X5UNITS SQ SCH (19:51)
[2017-03-27] MEDS: *HR* Promethazine 25 MG/ML VIAL IVP PRN (23:22)
[2017-03-28] MEDS: *HR* OxyCODONE Immed Rel 5 MG TABLET PO PRN (00:22)
[2017-03-28 03:17] LABS: Hematocrit 24.7 % (37.5-50.1); Hemoglobin 7.8 g/dL (12.9-16.9); Mean Corpuscular HGB Conc 31.6 g/dL (31.6-35.5); Mean Corpuscular Hemoglobin 28.3 pg (28.0-33.3); Mean Corpuscular Volume 89.5 fL (83.0-100.0); Mean Platelet Volume 8.5 fL (9.4-12.4); Neutrophils # 3.3 K/mcL (1.6-8.9); Platelet Count 359 K/mcL (140-400); Red Blood Count 2.76 M/mcL (4.19-5.50); Red Cell Distribution Width 14.2 % (11.5-14.5)
[2017-03-28 03:41] LABS: Calcium 7.7 mg/dL (8.6-10.3); Magnesium 1.5 mg/dL (1.6-2.6); Phosphorous 3.6 mg/dL (2.7-4.5); Potassium 3.6 mEq/L (3.5-5.1)
[2017-03-28] MEDS: Ipratropium/Albuterol Neb 3 ML IH SCH ×4 (04:02→22:11)
[2017-03-28 04:04] LABS: Eosinophils # 0.1 K/mcL (0.0-0.6); Lymphocytes # 1.9 K/mcL (0.6-4.6); Monocytes # 0.1 K/mcL (0.0-1.3); Platelet Estimate Normal (Normal)
[2017-03-28] MEDS: *HR* Heparin 5,000 UNIT/ML VIAL SQ SCH ×3 (05:55→20:53)
[2017-03-28] MEDS: Folic Acid 1 MG TABLET PO SCH (08:00)
[2017-03-28] MEDS: Fluconazole 200 MG/100 ML 200 MG/100 ML BAG IVPB SCH (08:00)
[2017-03-28] MEDS: Cholecalciferol (D-3) 1,000 UNIT TABLET PO SCH (08:00)
[2017-03-28] MEDS: Lactobacillus 1 EACH CAP.SPRINK PO SCH (08:00)
[2017-03-28] MEDS: Diltiazem CD (24hr) 240 MG CAPSULE PO SCH (08:00)
[2017-03-28] MEDS: Insulin LISPRO 300 UNITS/3 ML VIAL SQ SCH ×7 (08:01→20:30)
[2017-03-28] MEDS: Ondansetron 4 MG/2 ML VIAL IVP PRN (08:08)
[2017-03-28] MEDS ORDERED: Magnesium Sulfate 1 GM in D5% in Water 100 ML IVPB ONE (08:53)
--- NOTE | 2017-03-28 09:02 | Nephrology Progress Note ---
Date of Encounter: 03/28/17 Time of Encounter: 08:25 - Assessment and Plan (1) APOORVA (acute kidney injury) Current Visit: No Status: Acute APOORVA superimposed on CKD4. S/P bilateral neph tube exchange, followed by septic shower. Renal fct continues to improve, creat 2.82. Will continue to monitor, continue IV hydration as alberto., I&O, avoid nephrotoxins. Subjective Interval history: Sitting up in bed, eating breakfast. States feeling better. at bedside. Objective - Vital Signs Vital signs: Vital Signs Temp Pulse Resp BP Pulse Ox 03/28/17 08:16 63 03/28/17 07:31 97.7 F 17 141/84 97 03/28/17 04:17 97.9 F 67 17 135/81 92 03/27/17 23:32 98.1 F 70 20 144/85 95 03/27/17 20:05 97.8 F 73 16 150/82 96 03/27/17 15:33 97.9 F 68 16 142/80 94 03/27/17 11:18 138/76 03/27/17 11:00 98.2 F 59 16 138/76 95 Intake and Output 03/27/17 03/28/17 03/28/17 23:59 07:59 15:59 Intake Total 20 20 650 / 650 Output Total 1000 / 1000 2710 / 2710 Balance -980 / -980 -2059 / -2059 Intake: IV Fluids 50 / 50 Magnesium Sulfate Premix 2gm/ 50 / 50 50mL 2 gm In 50 ml @ 50 mls/hr IVPB ONCE ONE Rx#:[id number] Oral 20 / 20 600 / 600 Output: Urine 100 / 100 Left Nephrostomy 150 / 150 375 / 375 Right Nephrostomy 300 / 300 640 / 640 Wound Drainage 450 / 450 1695 / 1695 Left Back 300 / 300 875 / 875 Right Back 150 / 150 820 / 820 Other: Stool Size Small Stool Consistency soft formed Stool Color Brown # Bowel Movements 1 Weight 114.4 kg Blood Glucose* 128 94 Patient Weight 03/28/17 23:59 Weight 114.4 kg - General Appearance General appearance: Present: well-developed, well-nourished, appears started age EENT: Present: mucous membranes moist Neck: Present: no JVD Respiratory: Present: clear Cardiology: Present: edema, regular rate, regular rhythm Additional Comments: mild Gastrointestinal: Present: hypoactive bowel sounds, no tenderness Integumentary: Present: warm and dry Neurologic: Present: alert and oriented x3 - Lab 03/28/17 02:57 03/28/17 02:57 Most recent lab results Calcium 7.7 mg/dL (8.6-10.3) L 03/28/17 02:57 Phosphorus 3.6 mg/dL (2.7-4.5) 03/28/17 02:57 Magnesium 1.5 mg/dL (1.6-2.6) L 03/28/17 02:57 - VTE Documentation of Mechanical Device: Graduated compression elastic hosiery Consult Discharge Plan - Plan Referrals: Saleem Ramirez DO [Primary Care Provider] - 03/29/17 1:00 pm (Please follow up as schedule...)
--- NOTE | 2017-03-28 09:51 | Internal Med Progress Note ---
Date of Encounter: 03/28/17 Time of Encounter: 09:10 - Assessment and plan (1) Pyonephrosis Current Visit: Yes Status: Acute Assessment and plan: remains high risk for sepsis currently afebrile s/p b/l nephrostomy tubes placement by IR(03/22/17) good urine output noted with clearance of pyouria urine culture prelim positive for Staph Epi and Emmanuelle Tropicalis discontinued Linezolid, Zosyn, Micafungin Started Fluconazole as per ID (renally dosed) continue gentle IV fluid hydration and closely monitor for signs of volume overload ID evaluation appreciated (2) Acute kidney injury superimposed on chronic kidney disease Current Visit: Yes Status: Acute Assessment and plan: secondary to poorly functioning ureteral stents urology and nephrology on board and consultations appreciated s/p bilateral nephrostomy tubes placement (03/22/17) renal function improved from previous day f/u repeat blood cultures (3) Influenza Current Visit: Yes Status: Chronic Assessment and plan: Pt recently had four days of Tamiflu prior to hospitalization clinically improving will continue supportive care at this time IV fluids, bronchodilator support, tyelnol as needed (4) Generalized weakness Current Visit: Yes Status: Acute Assessment and plan: secondary to underlying infection continue supportive care pt encourage to get out of bed to chair with assistance (5) Intractable nausea and vomiting Current Visit: Yes Status: Resolved Assessment and plan: continue supportive care anti-emetics as needed Qualifiers: Vomiting type: unspecified Qualified Code(s): R11.2 - Nausea with vomiting , unspecified (6) SOB (shortness of breath) Current Visit: Yes Status: Resolved Assessment and plan: resolved at this time (7) Anemia Current Visit: Yes Status: Chronic Assessment and plan: history of anemia of chronic disease secondary to CKD continue Aranesp as per nephrology H&H low but acceptable will continue to closely monitor transfuse for Hgb<7 Qualifiers: Anemia type: other cause Other causes of anemia: other cause, not classified Qualified Code(s): D64.89 - Other specified anemias (8) Diabetes Current Visit: Yes Status: Chronic Assessment and plan: continue home dose of levemir sliding scale insulin algorithm as needed monitor FS and BG ADA diet Qualifiers: Diabetes mellitus type: type 2 Diabetes mellitus complication status: with unspecified complications Diabetes mellitus mcc insulin use: unspecified 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 status Qualified Code(s): E11.8 - Type 2 diabetes mellitus with unspecified complications (9) Hypertension Current Visit: No Status: Chronic Assessment and plan: BP within acceptable range continue home medications Hydralazine 10mg IV q6h prn SBP>150 will closely monitor BP Qualifiers: Hypertension type: essential hypertension Qualified Code(s): I10 - Essential (primary) hypertension (10) DVT prophylaxis Current Visit: Yes Status: Acute Assessment and plan: heparin SQ (11) Candidemia Current Visit: Yes Status: Acute Assessment and plan: ID and Optho evaluation appreciated d/c Micafungin started Fluconazole f/u repeat blood cultures (12) Candiduria Current Visit: Yes Status: Acute Assessment and plan: on Fluconazole (13) Hypomagnesemia Current Visit: Yes Status: Acute Assessment and plan: Mg supplemented continue to monitor electrolytes and replace as needed - Subjective Interval history: Patient seen and examined with present at bedside. Resting in bed and denies any discomfort Pt encouraged to increase activity as tolerated. Good urine output noted in b/l nephrostomy tubes - Constitutional Vitals: Temp Pulse Resp BP Pulse Ox 97.7 F 63 17 141/84 97 03/28/17 07:31 03/28/17 08:16 03/28/17 07:31 03/28/17 07:31 03/28/17 07:31 General appearance: Present: cooperative, A&O X 3, pleasant, no acute distress, obese, answers questions appropriately - Head Head exam: Present: atraumatic, normocephalic - Eye Eye exam: Present: conjuntiva pink, sclera anicteric - Respiratory Respiratory exam: Present: CTAB. Absent: accessory muscle use, rales, rhonchi, wheezes - Cardiovascular Cardiovascular exam: Present: RRR, +S1, +S2. Absent: diastolic murmur, gallop, rubs, systolic murmur - GI/Abdominal GI/Abdominal exam: Present: normal bowel sounds, soft, no peritoneal signs. Absent: distended, tenderness - Extremities Exam Extremities exam: Present: warm, radial pulses palpable and symmetrical. Absent : calf tenderness, cyanotic, pedal edema - Neurological Exam Neurological exam: Present: alert, oriented X3 - Psychiatric Psychiatric exam: Present: normal affect, normal mood Internal Medicine: Result - Labs CBC & Chem 7: 03/28/17 02:57 03/28/17 02:57 Labs: Short CBC 03/28/17 Range/Units 02:57 WBC 5.8 (4.3-11.1) K/mcL Hgb 7.8 L (12.9-16.9) g/dL Hct 24.7 L (37.5-50.1) % Plt Count 359 (140-400) K/mcL Neutrophils # 3.3 (1.6-8.9) K/mcL BMP 03/28/17 02:57 Sodium 138 Potassium 3.6 Chloride 108 H Carbon Dioxide 23 BUN 33 H Creatinine 2.83 H Glucose 135 H Calcium 7.7 L - ABG Interpretation ABG results: PT/INR, D-dimer PT 13.2 Seconds (9.4-12.1) H 03/22/17 09:59 D-Dimer 1193 ng/mLFEU (0-500) H 03/19/17 17:05 - VTE Documentation of Mechanical Device: Graduated compression elastic hosiery Consult Discharge Plan - Plan Referrals: Saleem Ramirez DO [Primary Care Provider] - 03/29/17 1:00 pm (Please follow up as schedule...)
[2017-03-28 12:43] LABS: Ferritin 770 ng/ml (20-250)
--- NOTE | 2017-03-28 14:07 | Infectious Disease Progress No ---
Date of Encounter: 03/28/17 Time of Encounter: 14:05 - Assessment and Plan (1) Sepsis Current Visit: No Status: Acute The patient developed three SIRS criteria on 03/22/17. Likely secondary to pyonephrosis and candidemia. Improved. WBC has normalized. He has been afebrile. Tachycardia has resolved. Blood cultures drawn 03/19/17 are negative x 2 sets. Repeat blood cultures drawn 03/22/17 at 1000 are negative x 2 sets. Additional blood cultures drawn 03/22/17 at 1600 are positive 1/2 sets for C. albicans. The PCR picked up both C. albican and C. tropicalis. Repeat blood cultures drawn 03/26/17 are NGTD x 2 sets. Qualifiers: Sepsis type: sepsis due to unspecified organism Qualified Code(s): A41.9 - Sepsis, unspecified organism (2) Candidemia Current Visit: Yes Status: Acute Causative organism: C. albicans and C. tropicalis. Source for the C. tropicalis likely the urinary system/pyonephrosis, but the C. albicans source is unclear --> contaminant vs. true infection. Blood cultures drawn 03/19/17 are negative x 2 sets. Repeat blood cultures drawn 03/22/17 at 1000 are negative x 2 sets. Additional blood cultures drawn 03/22/17 at 1600 are positive 1/2 sets for C. albicans. The PCR picked up C. albicans and C. tropicalis, but the culture grew only C. albicans. The patient is known to have bladder colonization with C. tropicalis. This set of blood cultures were drawn after the patient had bilateral nephrostomy tubes placed. Sensitivity shows fluconazole-sensitive. Repeat blood cultures x 2 sets drawn 03/26/17 are NGTD. Opthalmology consult noted and appreciated. No evidence of endopthalmitis. Continue fluconazole 200mg IV daily. Dose-adjusted for low creatinine clearance. Dose discussed with Miroslava Byrd. Duration of treatment depends on the clinical picture, but likely 14 days from the first set of negative blood cultures. Monitor renal and liver function and dose-adjust antibiotics. Okay to consult VAT prior to discharge for IV line placement. (3) Candiduria Current Visit: Yes Status: Acute Causative organism unclear, but likely C. tropicalis given the patient's past culture history. The patient has a history of colonization of the bladder, but given that the patient now has pyonephrosis and candidemia, will need to treat. Continue fluconazole as above. Duration of treatment depends on the clinical picture, but likely 14 days. The patient does have bilateral ureteral stents which may need to be removed due to decrease the risk of seeding. Per Urology, planning to remove in the office. (4) UTI (urinary tract infection) Current Visit: No Status: Acute Colonization vs. true infection. Causative organism: C. tropicalis and S. epi. The patient is known to be colonized with both. Continue antifungals as above. No need to treat S. epi - likely colonized. Qualifiers: Urinary tract infection type: acute cystitis Hematuria presence: without hematuria Qualified Code(s): N30.00 - Acute cystitis without hematuria (5) Pyonephrosis Current Visit: Yes Status: Acute Likely secondary to hydronephrosis. Causative organism unclear, but likely C. tropicalis. Renal ultrasound showed moderate bilateral hydronephrosis. CT of the abdomen and pelvis completed 03/22/17 showed bilateral hydroureteronephrosis with perinephric stranding bilaterally and findings consistent with cystitis. Urology consulted. Recommended placing bilateral nephrostomy tubes due to worsening renal function and sepsis-like picture. Status post bilateral PNT placement 03/22/17. Pus noted from the left tube initially with clear, blood-tinged urine afterwards. Specimen collected from the left renal system was positive for large leukocyte esterase, but the culture was negative. Fevers, leukocytosis, and tachycardia post-procedure likely secondary to septic shower.--> resolved. PNT management per the urology team. Fluconazole as above. (6) Influenza Current Visit: Yes Status: Chronic RIP positive for influenza A. Supportive care. (7) Acute kidney injury superimposed on chronic kidney disease Current Visit: Yes Status: Acute Likely multifactorial: bilateral hydronephrosis + dehydration + hypotension. Nephrology consulted and following. Renal status improved after PNT placement. Continue to trend. Dose-adjust antibiotics. Avoid nephrotoxins as able. (8) Hydronephrosis Current Visit: No Status: Acute Likely secondary to obstruction from the prostate cancer. Status post PNT 03/22/17. Urology consulted and following. Qualifiers: Hydronephrosis type: other Qualified Code(s): N13.39 - Other hydronephrosis (9) Dehydration Current Visit: Yes Status: Acute Secondary to poor PO intake. Improved. Management per the primary team. (10) Generalized weakness Current Visit: Yes Status: Acute (11) Intractable nausea and vomiting Current Visit: Yes Status: Resolved Likely secondary to infectious process. Resolved. Symptomatic management. Qualifiers: Vomiting type: unspecified Qualified Code(s): R11.2 - Nausea with vomiting , unspecified (12) Diabetes mellitus Current Visit: No Status: Chronic Qualifiers: Diabetes mellitus type: type 2 Diabetes mellitus complication status: with kidney complications Diabetes mellitus complication detail: with chronic kidney disease Diabetes mellitus residential insulin use: with residential use Chronic kidney disease stage: stage 3 (moderate) Qualified Code(s): E11.22 - Type 2 diabetes mellitus with diabetic chronic kidney disease; N18.3 - Chronic kidney disease, stage 3 (moderate); N18.3 - Chronic kidney disease, stage 3 ( moderate); Z79.4 - penitentiary (current) use of insulin; Z79.4 - penitentiary ( current) use of insulin; Z79.4 - box person (current) use of insulin; Z79.4 - box person (current) use of insulin (13) History of prostate cancer Current Visit: Yes Status: Chronic Diagnosed in January 2016, unresectable. Status post TURP with ureteral stents in Jan 2016. Underwent 39 radiation treatments from August 2016 to October 2016 at [facility]. Currently undergoing Lupron injections with last one in February 2017, next one May 2017. - Subjective Interval history: Patient seen and examined. No acute events noted overnight. Patient states that overall he feels better. Denies fevers, chills, or rigors. Denies chest pain, shortness of breath, or cough. Denies nausea, vomiting, diarrhea, or abdominal pain. Complains of mild low back pain, mainly at the nephrostomy tube sites, improved. States appetite is better. Reports dysuria, but denies frequency. Denies oral thrush or skin lesions. Infect Dis PN-Objective Data - Labs CBC & Chem 7: 03/28/17 02:57 03/28/17 02:57 Labs: Laboratory Results - last 24 hr 03/27/17 03/27/17 03/27/17 11:11 16:49 19:59 WBC RBC Hgb Hct MCV MCH MCHC RDW Plt Count MPV Seg Neutrophils % Lymphocytes % Monocytes % Eosinophils % Metamyelocytes % Myelocytes % Neutrophils # Lymphocytes # Monocytes # Eosinophils # Platelet Estimate Sodium Potassium Chloride Carbon Dioxide BUN Creatinine Est GFR ( Amer) Est GFR (Non-Af Amer) BUN/Creatinine Ratio Glucose POC Glucose 148 H 108 H 128 H Calculated Osmolality Calcium Phosphorus Magnesium 03/28/17 03/28/17 03/28/17 02:57 02:57 07:34 WBC 5.8 RBC 2.76 L Hgb 7.8 L Hct 24.7 L MCV 89.5 MCH 28.3 MCHC 31.6 RDW 14.2 Plt Count 359 MPV 8.5 L Seg Neutrophils % 56.0 Lymphocytes % 32.0 Monocytes % 2.0 Eosinophils % 2.0 Metamyelocytes % 2.0 H Myelocytes % 6.0 H Neutrophils # 3.3 Lymphocytes # 1.9 Monocytes # 0.1 Eosinophils # 0.1 Platelet Estimate Normal Sodium 138 Potassium 3.6 Chloride 108 H Carbon Dioxide 23 BUN 33 H Creatinine 2.83 H Est GFR ( Amer) 27 L Est GFR (Non-Af Amer) 23 L BUN/Creatinine Ratio 12 Glucose 135 H POC Glucose 94 H Calculated Osmolality 295 Calcium 7.7 L Phosphorus 3.6 Magnesium 1.5 L 03/28/17 09:24 WBC RBC Hgb Hct MCV MCH MCHC RDW Plt Count MPV Seg Neutrophils % Lymphocytes % Monocytes % Eosinophils % Metamyelocytes % Myelocytes % Neutrophils # Lymphocytes # Monocytes # Eosinophils # Platelet Estimate Sodium Potassium Chloride Carbon Dioxide BUN Creatinine Est GFR ( Amer) Est GFR (Non-Af Amer) BUN/Creatinine Ratio Glucose POC Glucose Calculated Osmolality Calcium Phosphorus Magnesium 1.8 Cultures: Cultures 03/22/17 09:59 Blood Culture - Final Peripheral Venipuncture No growth. 03/22/17 16:08 Blood Culture - Final Peripheral Venipuncture No growth. 03/22/17 09:59 Blood Culture - Final Peripheral Venipuncture No growth. 03/26/17 10:41 Blood Culture - Preliminary Peripheral Venipuncture No growth. 03/26/17 10:41 Blood Culture - Preliminary Peripheral Venipuncture No growth. 03/22/17 00:46 Urine Culture - Preliminary Urine,Catheterized Staphylococcus epidermidis Emmanuelle tropicalis 03/22/17 16:13 Blood Culture - Final Peripheral Venipuncture Emmanuelle albicans 03/22/17 15:40 Urine Culture - Final Urine,Kidney No significant growth. Serology 03/23/17 03/22/1703/22/18 Range/Units 09:15 16:13 15:40 Ur Specimen Adequacy Mucoid Specimen A Urine Color (Yellow) Urine Clarity (Clear) Urine pH (5.0-8.0) pH Units Ur Specific [place] (1.010-1.025) Urine Protein (Neg-Trace) mg/dL Urine Glucose (UA) (Normal) mg/dL Urine Ketones (Negative) mg/dL Urine Blood (Negative) Urine Nitrite (Negative) Urine Bilirubin (Negative) Urine Urobilinogen (Normal) mg/dL Ur Leukocyte Esterase (Negative) Urine Microscopic RBC Present (0-3) per hpf Urine Microscopic WBC Present (0-3) per hpf Ur Squamous Epith Cells (None-Few) per lpf Urine Bacteria (None-Few) per hpf Urine Yeast Ur Culture Indicated? YES A (NO) A. baumannii (PCR) Not Detected (Not Detect) Emmanuelle albicans (PCR) DETECTED A (Not Detect) C. glabrata (PCR) Not Detected (Not Detect) C. krusei (PCR) Not Detected (Not Detect) C. parapsilosis (PCR) Not Detected (Not Detect) C. tropicalis (PCR) DETECTED A (Not Detect) Enterobacteriac sp PCR Not Detected (Not Detect) E. cloacae complex PCR Not Detected (Not Detect) Enterococcus sp PCR Not Detected (Not Detect) E. coli (PCR) Not Detected (Not Detect) H. influenzae (PCR) Not Detected (Not Detect) Hep Bs Antigen Nonreactive (Nonreactive) Hep Bs Antibody 4.27 mIU/mL Klebsiella oxytoca PCR Not Detected (Not Detect) Klebsiella pneumoniae Not Detected (Not Detect) List. monocytogenes PCR Not Detected (Not Detect) N. meningitidis (PCR) Not Detected (Not Detect) Proteus species (PCR) Not Detected (Not Detect) Serratia marcescens PCR Not Detected (Not Detect) Staphylococcus sp PCR Not Detected (Not Detect) Staph aureus (PCR) Not Detected (Not Detect) mecA-Methicil Res Gene Not Detected (Not Detect) Streptococcus sp PCR Not Detected (Not Detect) Group A Strep DNA Not Detected (Not Detect) Group B Strep (PCR) Not Detected (Not Detect) Strep pneumoniae (PCR) Not Detected (Not Detect) P. aeruginosa (PCR) Not Detected (Not Detect) Juan/B-Vanco Res Genes Not Detected (Not Detect) KPC (blaKPC) Detect PCR Not Detected (Not Detect) 03/22/17 Range/Units 00:46 Ur Specimen Adequacy Urine Color Yellow (Yellow) Urine Clarity Turbid A (Clear) Urine pH 6.5 (5.0-8.0) pH Units Ur Specific [place] 1.013 (1.010-1.025) Urine Protein 100 H (Neg-Trace) mg/dL Urine Glucose (UA) Normal (Normal) mg/dL Urine Ketones Negative (Negative) mg/dL Urine Blood Large H (Negative) Urine Nitrite Negative (Negative) Urine Bilirubin Negative (Negative) Urine Urobilinogen Normal (Normal) mg/dL Ur Leukocyte Esterase Large H (Negative) Urine Microscopic RBC Present (0-3) per hpf Urine Microscopic WBC TNTC H (0-3) per hpf Ur Squamous Epith Cells Present (None-Few) per lpf Urine Bacteria Present (None-Few) per hpf Urine Yeast Test Not Performed Ur Culture Indicated? (NO) A. baumannii (PCR) (Not Detect) Emmanuelle albicans (PCR) (Not Detect) C. glabrata (PCR) (Not Detect) C. krusei (PCR) (Not Detect) C. parapsilosis (PCR) (Not Detect) C. tropicalis (PCR) (Not Detect) Enterobacteriac sp PCR (Not Detect) E. cloacae complex PCR (Not Detect) Enterococcus sp PCR (Not Detect) E. coli (PCR) (Not Detect) H. influenzae (PCR) (Not Detect) Hep Bs Antigen (Nonreactive) Hep Bs Antibody mIU/mL Klebsiella oxytoca PCR (Not Detect) Klebsiella pneumoniae (Not Detect) List. monocytogenes PCR (Not Detect) N. meningitidis (PCR) (Not Detect) Proteus species (PCR) (Not Detect) Serratia marcescens PCR (Not Detect) Staphylococcus sp PCR (Not Detect) Staph aureus (PCR) (Not Detect) mecA-Methicil Res Gene (Not Detect) Streptococcus sp PCR (Not Detect) Group A Strep DNA (Not Detect) Group B Strep (PCR) (Not Detect) Strep pneumoniae (PCR) (Not Detect) P. aeruginosa (PCR) (Not Detect) Juan/B-Vanco Res Genes (Not Detect) KPC (blaKPC) Detect PCR (Not Detect) Exam - Constitutional Vitals: Temp Pulse Resp BP Pulse Ox 97 F L 63 16 154/88 97 03/28/17 11:41 03/28/17 12:07 03/28/17 11:41 03/28/17 11:41 03/28/17 11:41 General appearance: cooperative, no acute distress, obese - Head Head exam: Present: atraumatic, normal inspection, normocephalic - Eye Eye exam: Present: EOMI, normal appearance, PERRL Pupils: Present: normal accommodation - ENT ENT exam: Present: mucous membranes moist - Neck Neck exam: Present: normal inspection - Respiratory Respiratory exam: Present: CTAB. Absent: rales, respiratory distress, rhonchi, wheezes - Cardiovascular Cardiovascular exam: Present: RRR, +S1, +S2 - GI/Abdominal GI/Abdominal exam: Present: normal bowel sounds, soft. Absent: distended, tenderness - Extremities Exam Extremities exam: Present: normal inspection, pedal edema (Trace BLE). Absent: joint swelling, tenderness - Back Exam Back exam: Present: CVA tenderness (L), CVA tenderness (R) Additional comments: Bilateral PNT noted to be draining clear yellow urine. - Neurological Exam Neurological exam: Present: alert, oriented X3, no focal deficits - Psychiatric Psychiatric exam: Present: normal affect, normal mood - Skin Skin exam: Present: dry, intact, normal color, warm - VTE Documentation of Mechanical Device: Graduated compression elastic hosiery Consult Discharge Plan - Plan Referrals: Saleem Ramirez DO [Primary Care Provider] - 03/29/17 1:00 pm (Please follow up as schedule...) - Attending Attestation I examined this patient and my medical decision-making was reviewed with the Resident Physician. I agree with the documented findings, disposition and treatment plan as described except to the extent set forth below.
[2017-03-28] MEDS: Insulin DETEMIR 100 UNIT/ML X5UNITS SQ SCH (20:52)
[2017-03-29] MEDS: Ipratropium/Albuterol Neb 3 ML IH SCH ×2 (03:51→07:52)
[2017-03-29] MEDS: Ondansetron 4 MG/2 ML VIAL IVP PRN ×2 (04:39→17:15)
[2017-03-29 05:03] LABS: Hematocrit 26.2 % (37.5-50.1); Hemoglobin 8.2 g/dL (12.9-16.9); Mean Corpuscular HGB Conc 31.3 g/dL (31.6-35.5); Mean Corpuscular Hemoglobin 28.3 pg (28.0-33.3); Mean Corpuscular Volume 90.3 fL (83.0-100.0); Mean Platelet Volume 8.2 fL (9.4-12.4); Monocytes # 0.5 K/mcL (0.0-1.3); Platelet Count 376 K/mcL (140-400); Red Cell Distribution Width 14.3 % (11.5-14.5)
[2017-03-29 05:16] LABS: Calcium 8.1 mg/dL (8.6-10.3); Magnesium 1.8 mg/dL (1.6-2.6); Phosphorous 3.3 mg/dL (2.7-4.5); Potassium 3.8 mEq/L (3.5-5.1)
[2017-03-29 05:37] LABS: Eosinophils # 0.2 K/mcL (0.0-0.6); Lymphocytes # 0.7 K/mcL (0.6-4.6); Neutrophils # 6.9 K/mcL (1.6-8.9); Platelet Estimate Normal (Normal)
[2017-03-29] MEDS: Acetaminophen 325 MG TABLET PO PRN (05:50)
[2017-03-29] MEDS: *HR* Heparin 5,000 UNIT/ML VIAL SQ SCH ×3 (05:50→20:56)
[2017-03-29] MEDS: Insulin LISPRO 300 UNITS/3 ML VIAL SQ SCH ×7 (08:06→20:57)
[2017-03-29] MEDS: Cholecalciferol (D-3) 1,000 UNIT TABLET PO SCH (08:20)
[2017-03-29] MEDS: Diltiazem CD (24hr) 240 MG CAPSULE PO SCH (08:20)
[2017-03-29] MEDS: Folic Acid 1 MG TABLET PO SCH (08:20)
[2017-03-29] MEDS: Fluconazole 200 MG/100 ML 200 MG/100 ML BAG IVPB SCH (08:20)
[2017-03-29] MEDS: Lactobacillus 1 EACH CAP.SPRINK PO SCH (08:20)
--- NOTE | 2017-03-29 09:36 | Nephrology Progress Note ---
Date of Encounter: 03/29/17 Time of Encounter: 09:05 - Assessment and Plan (1) APOORVA (acute kidney injury) Current Visit: No Status: Acute APOORVA superimposed on CKD4, baseline 1.7-2.5. S/P bilateral neph tube exchange, followed by septic shower. Renal fct continues to improve, creat 2.44, at baseline. Will continue to monitor. I&O, avoid nephrotoxins. Will follow in office if discharged in 4 weeks with RFP at 2 and 4 weeks. Subjective Interval history: Sitting up in bed, eating breakfast. States feeling better. at bedside. Objective - Vital Signs Vital signs: Vital Signs Temp Pulse Resp BP Pulse Ox 03/29/17 07:34 98.3 F 69 20 130/75 03/29/17 05:06 75 18 95 03/29/17 04:24 98.0 F 74 18 147/83 95 03/29/17 00:16 73 18 96 03/29/17 00:07 98.1 F 72 18 142/78 96 03/28/17 21:15 76 18 93 03/28/17 19:17 98.2 F 74 18 139/78 93 03/28/17 16:32 67 03/28/17 16:15 97.9 F 69 15 130/81 97 03/28/17 12:07 63 03/28/17 11:41 97 F L 66 16 154/88 97 Intake and Output 03/28/17 03/29/17 03/29/17 23:59 07:59 15:59 Intake Total 120 / 120 1000 / 1000 Output Total 3275 / 3275 625 / 625 Balance -3155 / -3155 -625 / -625 1000 / 1000 Intake: IV Fluids 1000 / 1000 0.45% Sodium Chloride 1000 Ml 1000 / 1000 1000 Ml 1,000 ML @ 50 mls/hr IVC .Q20H [facility] Rx#:[id number] Oral 120 / 120 Output: Left Nephrostomy 150 / 150 Right Nephrostomy 350 / 350 Wound Drainage 2775 / 2775 625 / 625 Right Back 2775 / 2775 625 / 625 Other: Meal Dinner Percent of Meal Consumed 100% Weight 113.9 kg Blood Glucose* 124 106 Patient Weight 03/29/17 23:59 Weight 113.9 kg - General Appearance General appearance: Present: well-developed, well-nourished, appears started age EENT: Present: mucous membranes moist Neck: Present: no JVD Respiratory: Present: clear Cardiology: Present: edema, regular rate, regular rhythm Additional Comments: mild Gastrointestinal: Present: normoactive bowel sounds, no tenderness Integumentary: Present: warm and dry Neurologic: Present: alert and oriented x3 - Lab 03/29/17 04:49 03/29/17 04:49 Most recent lab results Calcium 8.1 mg/dL (8.6-10.3) L 03/29/17 04:49 Phosphorus 3.3 mg/dL (2.7-4.5) 03/29/17 04:49 Magnesium 1.8 mg/dL (1.6-2.6) 03/29/17 04:49 - VTE Documentation of Mechanical Device: Graduated compression elastic hosiery Consult Discharge Plan - Plan Referrals: Saleem Ramirez DO [Primary Care Provider] - 03/29/17 1:00 pm (Please follow up as schedule...)
--- NOTE | 2017-03-29 09:36 | Infectious Disease Progress No ---
Date of Encounter: 03/29/17 Time of Encounter: 09:33 - Assessment and Plan (1) Sepsis Current Visit: No Status: Acute The patient developed three SIRS criteria on 03/22/17. Likely secondary to pyonephrosis and candidemia. Improved. WBC has normalized. He has been afebrile. Tachycardia has resolved. Blood cultures drawn 03/19/17 are negative x 2 sets. Repeat blood cultures drawn 03/22/17 at 1000 are negative x 2 sets. Additional blood cultures drawn 03/22/17 at 1600 are positive 1/2 sets for C. albicans. The PCR picked up both C. albican and C. tropicalis. Repeat blood cultures drawn 03/26/17 are NGTD x 2 sets. Qualifiers: Sepsis type: sepsis due to unspecified organism Qualified Code(s): A41.9 - Sepsis, unspecified organism (2) Candidemia Current Visit: Yes Status: Acute Causative organism: C. albicans and C. tropicalis. Source for the C. tropicalis likely the urinary system/pyonephrosis, but the C. albicans source is unclear --> contaminant vs. true infection. Blood cultures drawn 03/19/17 are negative x 2 sets. Repeat blood cultures drawn 03/22/17 at 1000 are negative x 2 sets. Additional blood cultures drawn 03/22/17 at 1600 are positive 1/2 sets for C. albicans. The PCR picked up C. albicans and C. tropicalis, but the culture grew only C. albicans. The patient is known to have bladder colonization with C. tropicalis. This set of blood cultures were drawn after the patient had bilateral nephrostomy tubes placed. Sensitivity shows fluconazole-sensitive. Repeat blood cultures x 2 sets drawn 03/26/17 are NGTD. Opthalmology consult noted and appreciated. No evidence of endopthalmitis. Continue fluconazole 200mg IV daily. Dose-adjusted for low creatinine clearance. Dose discussed with Miroslava Byrd. If creatinine improves again tomorrow, may need to increase dose. Duration of treatment depends on the clinical picture, but likely 14 days from the first set of negative blood cultures. Treat through 04/08/17. Monitor renal and liver function and dose-adjust antibiotics. (3) Candiduria Current Visit: Yes Status: Acute Causative organism unclear, but likely C. tropicalis given the patient's past culture history. The patient has a history of colonization of the bladder, but given that the patient now has pyonephrosis and candidemia, will need to treat. Continue fluconazole as above. Duration of treatment depends on the clinical picture, but likely 14 days. The patient does have bilateral ureteral stents which may need to be removed due to decrease the risk of seeding. Per Urology, planning to remove in the office. (4) UTI (urinary tract infection) Current Visit: No Status: Acute Colonization vs. true infection. Causative organism: C. tropicalis and S. epi. The patient is known to be colonized with both. Continue antifungals as above. No need to treat S. epi - likely colonized. Qualifiers: Urinary tract infection type: acute cystitis Hematuria presence: without hematuria Qualified Code(s): N30.00 - Acute cystitis without hematuria (5) Pyonephrosis Current Visit: Yes Status: Acute Likely secondary to hydronephrosis. Causative organism unclear, but likely C. tropicalis. Renal ultrasound showed moderate bilateral hydronephrosis. CT of the abdomen and pelvis completed 03/22/17 showed bilateral hydroureteronephrosis with perinephric stranding bilaterally and findings consistent with cystitis. Urology consulted. Recommended placing bilateral nephrostomy tubes due to worsening renal function and sepsis-like picture. Status post bilateral PNT placement 03/22/17. Pus noted from the left tube initially with clear, blood-tinged urine afterwards. Specimen collected from the left renal system was positive for large leukocyte esterase, but the culture was negative. Fevers, leukocytosis, and tachycardia post-procedure likely secondary to septic shower.--> resolved. PNT management per the urology team. Urine remains clear at this time. Fluconazole as above. (6) Influenza Current Visit: Yes Status: Chronic RIP positive for influenza A. Supportive care. (7) Acute kidney injury superimposed on chronic kidney disease Current Visit: Yes Status: Acute Likely multifactorial: bilateral hydronephrosis + dehydration + hypotension. Nephrology consulted and following. Renal status improved after PNT placement. Continue to trend. Dose-adjust antibiotics. Avoid nephrotoxins as able. (8) Hydronephrosis Current Visit: No Status: Acute Likely secondary to obstruction from the prostate cancer. Status post PNT 03/22/17. Urology consulted and following. Qualifiers: Hydronephrosis type: other Qualified Code(s): N13.39 - Other hydronephrosis (9) Dehydration Current Visit: Yes Status: Resolved Secondary to poor PO intake. Improved. Management per the primary team. (10) Generalized weakness Current Visit: Yes Status: Acute Continue PT/OT. (11) Intractable nausea and vomiting Current Visit: Yes Status: Resolved Likely secondary to infectious process. Resolved. Symptomatic management. Qualifiers: Vomiting type: unspecified Qualified Code(s): R11.2 - Nausea with vomiting , unspecified (12) Diabetes mellitus Current Visit: No Status: Chronic Qualifiers: Diabetes mellitus type: type 2 Diabetes mellitus complication status: with kidney complications Diabetes mellitus complication detail: with chronic kidney disease Diabetes mellitus terminal operator insulin use: with terminal operator use Chronic kidney disease stage: stage 3 (moderate) Qualified Code(s): E11.22 - Type 2 diabetes mellitus with diabetic chronic kidney disease; N18.3 - Chronic kidney disease, stage 3 (moderate); N18.3 - Chronic kidney disease, stage 3 ( moderate); Z79.4 - rodent exterminator (current) use of insulin; Z79.4 - USP ( current) use of insulin; Z79.4 - USP (current) use of insulin; Z79.4 - USP (current) use of insulin (13) History of prostate cancer Current Visit: Yes Status: Chronic Diagnosed in January 2016, unresectable. Status post TURP with ureteral stents in Jan 2016. Underwent 39 radiation treatments from August 2016 to October 2016 at [facility]. Currently undergoing Lupron injections with last one in February 2017, next one May 2017. - Subjective Interval history: Patient seen and examined. No acute events noted overnight. Patient states that overall he feels better today, but not as good as yesterday. Denies fevers, chills, or rigors. Denies chest pain, shortness of breath, or cough. Denies vomiting, diarrhea, or abdominal pain. Does report some nausea this morning, improved with Zofran. Complains of mild low back pain, mainly at the nephrostomy tube sites, improved. States appetite is better. Reports dysuria, but denies frequency. Denies oral thrush or skin lesions. Infect Dis PN-Objective Data - Labs CBC & Chem 7: 03/29/17 04:49 03/29/17 04:49 Labs: Laboratory Results - last 24 hr 03/28/17 03/28/17 03/28/17 07:34 09:24 11:53 WBC RBC Hgb Hct MCV MCH MCHC RDW Plt Count MPV Seg Neutrophils % Lymphocytes % Monocytes % Eosinophils % Neutrophils # Lymphocytes # Monocytes # Eosinophils # Platelet Estimate Sodium Potassium Chloride Carbon Dioxide BUN Creatinine Est GFR ( Amer) Est GFR (Non-Af Amer) BUN/Creatinine Ratio Glucose POC Glucose 94 H 121 H Calculated Osmolality Calcium Phosphorus Magnesium 1.8 03/28/17 03/28/17 03/29/17 16:17 19:14 04:49 WBC 8.2 RBC 2.90 L Hgb 8.2 L Hct 26.2 L MCV 90.3 MCH 28.3 MCHC 31.3 L RDW 14.3 Plt Count 376 MPV 8.2 L Seg Neutrophils % 84.0 Lymphocytes % 8.0 Monocytes % 6.0 Eosinophils % 2.0 Neutrophils # 6.9 Lymphocytes # 0.7 Monocytes # 0.5 Eosinophils # 0.2 Platelet Estimate Normal Sodium Potassium Chloride Carbon Dioxide BUN Creatinine Est GFR ( Amer) Est GFR (Non-Af Amer) BUN/Creatinine Ratio Glucose POC Glucose 138 H 124 H Calculated Osmolality Calcium Phosphorus Magnesium 03/29/17 04:49 WBC RBC Hgb Hct MCV MCH MCHC RDW Plt Count MPV Seg Neutrophils % Lymphocytes % Monocytes % Eosinophils % Neutrophils # Lymphocytes # Monocytes # Eosinophils # Platelet Estimate Sodium 139 Potassium 3.8 Chloride 108 H Carbon Dioxide 24 BUN 31 H Creatinine 2.44 H Est GFR ( Amer) 32 L Est GFR (Non-Af Amer) 27 L BUN/Creatinine Ratio 13 Glucose 116 H POC Glucose Calculated Osmolality 296 Calcium 8.1 L Phosphorus 3.3 Magnesium 1.8 Cultures: Cultures 03/22/17 09:59 Blood Culture - Final Peripheral Venipuncture No growth. 03/22/17 16:08 Blood Culture - Final Peripheral Venipuncture No growth. 03/22/17 09:59 Blood Culture - Final Peripheral Venipuncture No growth. 03/26/17 10:41 Blood Culture - Preliminary Peripheral Venipuncture No growth. 03/26/17 10:41 Blood Culture - Preliminary Peripheral Venipuncture No growth. 03/22/17 00:46 Urine Culture - Preliminary Urine,Catheterized Staphylococcus epidermidis Emmanuelle tropicalis 03/22/17 16:13 Blood Culture - Final Peripheral Venipuncture Emmanuelle albicans 03/22/17 15:40 Urine Culture - Final Urine,Kidney No significant growth. Serology 03/23/17 03/22/17 03/22/17 Range/Units 09:15 16:13 15:40 Ur Specimen Adequacy Mucoid Specimen A Urine Color (Yellow) Urine Clarity (Clear) Urine pH (5.0-8.0) pH Units Ur Specific [place] (1.010-1.025) Urine Protein (Neg-Trace) mg/dL Urine Glucose (UA) (Normal) mg/dL Urine Ketones (Negative) mg/dL Urine Blood (Negative) Urine Nitrite (Negative) Urine Bilirubin (Negative) Urine Urobilinogen (Normal) mg/dL Ur Leukocyte Esterase (Negative) Urine Microscopic RBC Present (0-3) per hpf Urine Microscopic WBC Present (0-3) per hpf Ur Squamous Epith Cells (None-Few) per lpf Urine Bacteria (None-Few) per hpf Urine Yeast Ur Culture Indicated? YES A (NO) A. baumannii (PCR) Not Detected (Not Detect) Emmanuelle albicans (PCR) DETECTED A (Not Detect) C. glabrata (PCR) Not Detected (Not Detect) C. krusei (PCR) Not Detected (Not Detect) C. parapsilosis (PCR) Not Detected (Not Detect) C. tropicalis (PCR) DETECTED A (Not Detect) Enterobacteriac sp PCR Not Detected (Not Detect) E. cloacae complex PCR Not Detected (Not Detect) Enterococcus sp PCR Not Detected (Not Detect) E. coli (PCR) Not Detected (Not Detect) H. influenzae (PCR) Not Detected (Not Detect) Hep Bs Antigen Nonreactive (Nonreactive) Hep Bs Antibody 4.27 mIU/mL Klebsiella oxytoca PCR Not Detected (Not Detect) Klebsiella pneumoniae Not Detected (Not Detect) List. monocytogenes PCR Not Detected (Not Detect) N. meningitidis (PCR) Not Detected (Not Detect) Proteus species (PCR) Not Detected (Not Detect) Serratia marcescens PCR Not Detected (Not Detect) Staphylococcus sp PCR Not Detected (Not Detect) Staph aureus (PCR) Not Detected (Not Detect) mecA-Methicil Res Gene Not Detected (Not Detect) Streptococcus sp PCR Not Detected (Not Detect) Group A Strep DNA Not Detected (Not Detect) Group B Strep (PCR) Not Detected (Not Detect) Strep pneumoniae (PCR) Not Detected (Not Detect) P. aeruginosa (PCR) Not Detected (Not Detect) Juan/B-Vanco Res Genes Not Detected (Not Detect) KPC (blaKPC) Detect PCR Not Detected (Not Detect) 03/22/17 Range/Units 00:46 Ur Specimen Adequacy Urine Color Yellow (Yellow) Urine Clarity Turbid A (Clear) Urine pH 6.5 (5.0-8.0) pH Units Ur Specific [place] 1.013 (1.010-1.025) Urine Protein 100 H (Neg-Trace) mg/dL Urine Glucose (UA) Normal (Normal) mg/dL Urine Ketones Negative (Negative) mg/dL Urine Blood Large H (Negative) Urine Nitrite Negative (Negative) Urine Bilirubin Negative (Negative) Urine Urobilinogen Normal (Normal) mg/dL Ur Leukocyte Esterase Large H (Negative) Urine Microscopic RBC Present (0-3) per hpf Urine Microscopic WBC TNTC H (0-3) per hpf Ur Squamous Epith Cells Present (None-Few) per lpf Urine Bacteria Present (None-Few) per hpf Urine Yeast Test Not Performed Ur Culture Indicated? (NO) A. baumannii (PCR) (Not Detect) Emmanuelle albicans (PCR) (Not Detect) C. glabrata (PCR) (Not Detect) C. krusei (PCR) (Not Detect) C. parapsilosis (PCR) (Not Detect) C. tropicalis (PCR) (Not Detect) Enterobacteriac sp PCR (Not Detect) E. cloacae complex PCR (Not Detect) Enterococcus sp PCR (Not Detect) E. coli (PCR) (Not Detect) H. influenzae (PCR) (Not Detect) Hep Bs Antigen (Nonreactive) Hep Bs Antibody mIU/mL Klebsiella oxytoca PCR (Not Detect) Klebsiella pneumoniae (Not Detect) List. monocytogenes PCR (Not Detect) N. meningitidis (PCR) (Not Detect) Proteus species (PCR) (Not Detect) Serratia marcescens PCR (Not Detect) Staphylococcus sp PCR (Not Detect) Staph aureus (PCR) (Not Detect) mecA-Methicil Res Gene (Not Detect) Streptococcus sp PCR (Not Detect) Group A Strep DNA (Not Detect) Group B Strep (PCR) (Not Detect) Strep pneumoniae (PCR) (Not Detect) P. aeruginosa (PCR) (Not Detect) Juan/B-Vanco Res Genes (Not Detect) KPC (blaKPC) Detect PCR (Not Detect) Exam - Constitutional Vitals: Temp Pulse Resp BP Pulse Ox 98.3 F 69 20 130/75 95 03/29/17 07:34 03/29/17 07:34 03/29/17 07:34 03/29/17 07:34 03/29/17 05:06 General appearance: cooperative, no acute distress, obese - Head Head exam: Present: atraumatic, normal inspection, normocephalic - Eye Eye exam: Present: EOMI, normal appearance, PERRL Pupils: Present: normal accommodation - ENT ENT exam: Present: mucous membranes moist - Neck Neck exam: Present: normal inspection - Respiratory Respiratory exam: Present: CTAB. Absent: rales, respiratory distress, rhonchi, wheezes - Cardiovascular Cardiovascular exam: Present: RRR, +S1, +S2 - GI/Abdominal GI/Abdominal exam: Present: normal bowel sounds, soft. Absent: distended, tenderness - Extremities Exam Extremities exam: Present: normal inspection, pedal edema (Trace BLE). Absent: joint swelling, tenderness - Back Exam Back exam: Present: CVA tenderness (L), CVA tenderness (R) Additional comments: Bilateral PNT noted to be draining clear yellow urine. - Neurological Exam Neurological exam: Present: alert, oriented X3, no focal deficits - Psychiatric Psychiatric exam: Present: normal affect, normal mood - Skin Skin exam: Present: dry, intact, normal color, warm - VTE Documentation of Mechanical Device: Graduated compression elastic hosiery Consult Discharge Plan - Plan Referrals: Saleem Ramirez DO [Primary Care Provider] - 03/29/17 1:00 pm (Please follow up as schedule...) - Attending Attestation I examined this patient and my medical decision-making was reviewed with the Resident Physician. I agree with the documented findings, disposition and treatment plan as described except to the extent set forth below.
[2017-03-29] MEDS ORDERED: Lidocaine -MPF 1% 2 ML VIAL ID PRN (13:07)
[2017-03-29] MEDS ORDERED: Ipratropium/Albuterol Neb 3 ML IH PRN (14:52)
--- NOTE | 2017-03-29 18:58 | Internal Med Progress Note ---
Date of Encounter: 03/29/17 Time of Encounter: 11:00 - Assessment and plan (1) Sepsis Current Visit: No Status: Acute Assessment and plan: -Secondary to candidemia and candiduria -Continue medical management as below Qualifiers: Sepsis type: sepsis due to unspecified organism Qualified Code(s): A41.9 - Sepsis, unspecified organism (2) Candidemia Current Visit: Yes Status: Acute Assessment and plan: ID and Optho following d/c Micafungin started Fluconazole f/u repeat blood cultures (3) Candiduria Current Visit: Yes Status: Acute Assessment and plan: on Fluconazole (4) Influenza Current Visit: Yes Status: Chronic Assessment and plan: Pt recently had four days of Tamiflu prior to hospitalization clinically improving will continue supportive care at this time IV fluids, bronchodilator support, tyelnol as needed (5) Complicated UTI (urinary tract infection) Current Visit: No Status: Acute Assessment and plan: -Patient with candiduria and management as above (6) Acute renal failure superimposed on chronic kidney disease Current Visit: Yes Status: Acute Assessment and plan: Stable; nephrology following and appreciate recommendations Qualifiers: Acute renal failure type: unspecified Chronic kidney disease stage: unspecified stage Qualified Code(s): N17.9 - Acute kidney failure, unspecified ; N18.9 - Chronic kidney disease, unspecified; N18.9 - Chronic kidney disease, unspecified (7) DVT prophylaxis Current Visit: Yes Status: Acute Assessment and plan: heparin SQ - Subjective Interval history: No issues or complaints overnight - Constitutional Vitals: Temp Pulse Resp BP Pulse Ox 97.8 F 70 16 132/79 93 03/29/17 16:04 03/29/17 16:04 03/29/17 16:04 03/29/17 16:04 03/29/17 16:04 General appearance: Present: cooperative, A&O X 3, pleasant, no acute distress, obese, answers questions appropriately - Respiratory Respiratory exam: Present: CTAB. Absent: accessory muscle use, rales, rhonchi, wheezes - Cardiovascular Cardiovascular exam: Present: RRR, +S1, +S2. Absent: diastolic murmur, gallop, rubs, systolic murmur Internal Medicine: Result - Labs CBC & Chem 7: 03/29/17 04:49 03/29/17 04:49 Labs: Short CBC 03/29/17 Range/Units 04:49 WBC 8.2 (4.3-11.1) K/mcL Hgb 8.2 L (12.9-16.9) g/dL Hct 26.2 L (37.5-50.1) % Plt Count 376 (140-400) K/mcL Neutrophils # 6.9 (1.6-8.9) K/mcL BMP 03/29/17 04:49 Sodium 139 Potassium 3.8 Chloride 108 H Carbon Dioxide 24 BUN 31 H Creatinine 2.44 H Glucose 116 H Calcium 8.1 L - ABG Interpretation ABG results: PT/INR, D-dimer PT 13.2 Seconds (9.4-12.1) H 03/22/17 09:59 D-Dimer 1193 ng/mLFEU (0-500) H 03/19/17 17:05 - VTE Documentation of Mechanical Device: Graduated compression elastic hosiery Consult Discharge Plan - Plan Referrals: Saleem Ramirez DO [Primary Care Provider] - 03/29/17 1:00 pm (Please follow up as schedule...)
[2017-03-29] MEDS: Insulin DETEMIR 100 UNIT/ML X5UNITS SQ SCH (20:56)
[2017-03-30] MEDS: *HR* Heparin 5,000 UNIT/ML VIAL SQ SCH ×3 (05:52→20:31)
[2017-03-30] MEDS: Ondansetron 4 MG/2 ML VIAL IVP PRN (05:53)
[2017-03-30] MEDS: Insulin LISPRO 300 UNITS/3 ML VIAL SQ SCH ×7 (07:26→20:33)
[2017-03-30] MEDS: Lactobacillus 1 EACH CAP.SPRINK PO SCH (07:28)
[2017-03-30] MEDS: Cholecalciferol (D-3) 1,000 UNIT TABLET PO SCH (07:28)
[2017-03-30] MEDS: Fluconazole 200 MG/100 ML 200 MG/100 ML BAG IVPB SCH (07:28)
[2017-03-30] MEDS: Diltiazem CD (24hr) 240 MG CAPSULE PO SCH (07:28)
[2017-03-30] MEDS: Folic Acid 1 MG TABLET PO SCH (07:28)
[2017-03-30 10:27] LABS: Hematocrit 25.9 % (37.5-50.1); Hemoglobin 8.3 g/dL (12.9-16.9); Mean Corpuscular Hemoglobin 28.7 pg (28.0-33.3); Mean Corpuscular Volume 89.6 fL (83.0-100.0); Mean Platelet Volume 8.6 fL (9.4-12.4); Platelet Count 406 K/mcL (140-400); Red Blood Count 2.89 M/mcL (4.19-5.50); Red Cell Distribution Width 14.6 % (11.5-14.5)
[2017-03-30 10:50] LABS: Albumin 2.9 g/dL (3.5-5.7); Albumin/Globulin Ratio 0.8 (1.1-2.2); Bilirubin,Total 0.2 mg/dL (0.3-1.0); Calcium 8.2 mg/dL (8.6-10.3); Globulin 3.5 g/dL (2.4-3.5); Potassium 4.2 mEq/L (3.5-5.1); Total Protein 6.4 g/dL (6.4-8.9)
--- NOTE | 2017-03-30 10:58 | Infectious Disease Progress No ---
Date of Encounter: 03/30/17 Time of Encounter: 10:56 - Assessment and Plan (1) Sepsis Current Visit: No Status: Acute The patient developed three SIRS criteria on 03/22/17. Likely secondary to pyonephrosis and candidemia. Improved. WBC has normalized. He has been afebrile. Tachycardia has resolved. Blood cultures drawn 03/19/17 are negative x 2 sets. Repeat blood cultures drawn 03/22/17 at 1000 are negative x 2 sets. Additional blood cultures drawn 03/22/17 at 1600 are positive 1/2 sets for C. albicans. The PCR picked up both C. albican and C. tropicalis. Repeat blood cultures drawn 03/26/17 are NGTD x 2 sets. Check CBC and CMP this morning. Qualifiers: Sepsis type: sepsis due to unspecified organism Qualified Code(s): A41.9 - Sepsis, unspecified organism (2) Candidemia Current Visit: Yes Status: Acute Causative organism: C. albicans and C. tropicalis. Source for the C. tropicalis likely the urinary system/pyonephrosis, but the C. albicans source is unclear --> contaminant vs. true infection. Blood cultures drawn 03/19/17 are negative x 2 sets. Repeat blood cultures drawn 03/22/17 at 1000 are negative x 2 sets. Additional blood cultures drawn 03/22/17 at 1600 are positive 1/2 sets for C. albicans. The PCR picked up C. albicans and C. tropicalis, but the culture grew only C. albicans. The patient is known to have bladder colonization with C. tropicalis. This set of blood cultures were drawn after the patient had bilateral nephrostomy tubes placed. Sensitivity shows fluconazole-sensitive. Repeat blood cultures x 2 sets drawn 03/26/17 are NGTD. Opthalmology consult noted and appreciated. No evidence of endopthalmitis. Continue fluconazole 200mg IV daily. Dose-adjusted for low creatinine clearance. Dose discussed with Carson, PharmD, advised to keep at 200mg daily for the duration of therapy. Duration of treatment depends on the clinical picture, but likely 14 days from the first set of negative blood cultures. Treat through 04/08/17. Monitor renal and liver function and dose-adjust antibiotics. (3) Candiduria Current Visit: Yes Status: Acute Causative organism unclear, but likely C. tropicalis given the patient's past culture history. The patient has a history of colonization of the bladder, but given that the patient now has pyonephrosis and candidemia, will need to treat. Continue fluconazole as above. Duration of treatment depends on the clinical picture, but likely 14 days. The patient does have bilateral ureteral stents which may need to be removed due to decrease the risk of seeding. Per Urology, planning to remove in the office. (4) UTI (urinary tract infection) Current Visit: No Status: Acute Colonization vs. true infection. Causative organism: C. tropicalis and S. epi. The patient is known to be colonized with both. Continue antifungals as above. No need to treat S. epi - likely colonized. Qualifiers: Urinary tract infection type: acute cystitis Hematuria presence: without hematuria Qualified Code(s): N30.00 - Acute cystitis without hematuria (5) Pyonephrosis Current Visit: Yes Status: Acute Likely secondary to hydronephrosis. Causative organism unclear, but likely C. tropicalis. Renal ultrasound showed moderate bilateral hydronephrosis. CT of the abdomen and pelvis completed 03/22/17 showed bilateral hydroureteronephrosis with perinephric stranding bilaterally and findings consistent with cystitis. Urology consulted. Recommended placing bilateral nephrostomy tubes due to worsening renal function and sepsis-like picture. Status post bilateral PNT placement 03/22/17. Pus noted from the left tube initially with clear, blood-tinged urine afterwards. Specimen collected from the left renal system was positive for large leukocyte esterase, but the culture was negative. Fevers, leukocytosis, and tachycardia post-procedure likely secondary to septic shower.--> resolved. PNT management per the urology team. Urine remains clear at this time. Fluconazole as above. (6) Influenza Current Visit: Yes Status: Chronic RIP positive for influenza A. Supportive care. (7) Acute kidney injury superimposed on chronic kidney disease Current Visit: Yes Status: Acute Likely multifactorial: bilateral hydronephrosis + dehydration + hypotension. Nephrology consulted and following. Renal status improved after PNT placement. Continue to trend. Dose-adjust antibiotics. Avoid nephrotoxins as able. (8) Hydronephrosis Current Visit: No Status: Acute Likely secondary to obstruction from the prostate cancer. Status post PNT 03/22/17. Urology consulted and following. Qualifiers: Hydronephrosis type: other Qualified Code(s): N13.39 - Other hydronephrosis (9) Dehydration Current Visit: Yes Status: Resolved Secondary to poor PO intake. Improved. Management per the primary team. (10) Generalized weakness Current Visit: Yes Status: Acute Continue PT/OT. (11) Intractable nausea and vomiting Current Visit: Yes Status: Resolved Likely secondary to infectious process. Resolved. Symptomatic management. 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 Status post TURP with ureteral stents in Jan 2016. Underwent 39 radiation treatments from August 2016 to October 2016 at [facility]. Currently undergoing Lupron injections with last one in February 2017, next one May 2017. - Subjective Interval history: Patient seen and examined. No acute events noted overnight. Patient states that overall he feels better today. Sitting up in the bedside chair. Denies fevers, chills, or rigors. Denies chest pain, shortness of breath, or cough. Denies nausea, vomiting, diarrhea, or abdominal pain. Complains of mild low back pain, mainly at the nephrostomy tube sites, improved. States appetite is better. Reports dysuria, but denies frequency. Denies oral thrush or skin lesions. Infect Dis PN-Objective Data - Labs CBC & Chem 7: 03/30/17 09:58 03/30/17 09:58 Labs: Laboratory Results - last 24 hr 03/29/17 03/29/17 03/29/17 07:37 11:15 16:01 WBC RBC Hgb Hct MCV MCH MCHC RDW Plt Count MPV Sodium Potassium Chloride Carbon Dioxide BUN Creatinine Est GFR ( Amer) Est GFR (Non-Af Amer) BUN/Creatinine Ratio Glucose POC Glucose 106 H 167 H 151 H Calculated Osmolality Calcium Total Bilirubin AST ALT Alkaline Phosphatase Serum Total Protein Albumin Globulin Albumin/Globulin Ratio 03/29/17 03/30/17 03/30/17 20:20 09:58 09:58 WBC 9.2 RBC 2.89 L Hgb 8.3 L Hct 25.9 L MCV 89.6 MCH 28.7 MCHC 32.0 RDW 14.6 H Plt Count 406 H MPV 8.6 L Sodium 136 Potassium 4.2 Chloride 107 Carbon Dioxide 22 L BUN 28 H Creatinine 2.26 H Est GFR ( Amer) 35 L Est GFR (Non-Af Amer) 29 L BUN/Creatinine Ratio 12 Glucose 200 H POC Glucose 165 H Calculated Osmolality 293 Calcium 8.2 L Total Bilirubin 0.2 L AST 14 ALT 20 Alkaline Phosphatase 49 Serum Total Protein 6.4 Albumin 2.9 L Globulin 3.5 Albumin/Globulin Ratio 0.8 L Cultures: Cultures 03/22/17 09:59 Blood Culture - Final Peripheral Venipuncture No growth. 03/22/17 16:08 Blood Culture - Final Peripheral Venipuncture No growth. 03/22/17 09:59 Blood Culture - Final Peripheral Venipuncture No growth. 03/26/17 10:41 Blood Culture - Preliminary Peripheral Venipuncture No growth. 03/26/17 10:41 Blood Culture - Preliminary Peripheral Venipuncture No growth. 03/22/17 00:46 Urine Culture - Preliminary Urine,Catheterized Staphylococcus epidermidis Emmanuelle tropicalis 03/22/17 16:13 Blood Culture - Final Peripheral Venipuncture Emmanuelle albicans 03/22/17 15:40 Urine Culture - Final Urine,Kidney No significant growth. Serology 03/23/17 03/22/17 03/22/17 Range/Units 09:15 16:13 15:40 Ur Specimen Adequacy Mucoid Specimen A Urine Color (Yellow) Urine Clarity (Clear) Urine pH (5.0-8.0) pH Units Ur Specific [place] (1.010-1.025) Urine Protein (Neg-Trace) mg/dL Urine Glucose (UA) (Normal) mg/dL Urine Ketones (Negative) mg/dL Urine Blood (Negative) Urine Nitrite (Negative) Urine Bilirubin (Negative) Urine Urobilinogen (Normal) mg/dL Ur Leukocyte Esterase (Negative) Urine Microscopic RBC Present (0-3) per hpf Urine Microscopic WBC Present (0-3) per hpf Ur Squamous Epith Cells (None-Few) per lpf Urine Bacteria (None-Few) per hpf Urine Yeast Ur Culture Indicated? YES A (NO) A. baumannii (PCR) Not Detected (Not Detect) Emmanuelle albicans (PCR) DETECTED A (Not Detect) C. glabrata (PCR) Not Detected (Not Detect) C. krusei (PCR) Not Detected (Not Detect) C. parapsilosis (PCR) Not Detected (Not Detect) C. tropicalis (PCR) DETECTED A (Not Detect) Enterobacteriac sp PCR Not Detected (Not Detect) E. cloacae complex PCR Not Detected (Not Detect) Enterococcus sp PCR Not Detected (Not Detect) E. coli (PCR) Not Detected (Not Detect) H. influenzae (PCR) Not Detected (Not Detect) Hep Bs Antigen Nonreactive (Nonreactive) Hep Bs Antibody 4.27 mIU/mL Klebsiella oxytoca PCR Not Detected (Not Detect) Klebsiella pneumoniae Not Detected (Not Detect) List. monocytogenes PCR Not Detected (Not Detect) N. meningitidis (PCR) Not Detected (Not Detect) Proteus species (PCR) Not Detected (Not Detect) Serratia marcescens PCR Not Detected (Not Detect) Staphylococcus sp PCR Not Detected (Not Detect) Staph aureus (PCR) Not Detected (Not Detect) mecA-Methicil Res Gene Not Detected (Not Detect) Streptococcus sp PCR Not Detected (Not Detect) Group A Strep DNA Not Detected (Not Detect) Group B Strep (PCR) Not Detected (Not Detect) Strep pneumoniae (PCR) Not Detected (Not Detect) P. aeruginosa (PCR) Not Detected (Not Detect) Juan/B-Vanco Res Genes Not Detected (Not Detect) KPC (blaKPC) Detect PCR Not Detected (Not Detect) 03/22/17 Range/Units 00:46 Ur Specimen Adequacy Urine Color Yellow (Yellow) Urine Clarity Turbid A (Clear) Urine pH 6.5 (5.0-8.0) pH Units Ur Specific [place] 1.013 (1.010-1.025) Urine Protein 100 H (Neg-Trace) mg/dL Urine Glucose (UA) Normal (Normal) mg/dL Urine Ketones Negative (Negative) mg/dL Urine Blood Large H (Negative) Urine Nitrite Negative (Negative) Urine Bilirubin Negative (Negative) Urine Urobilinogen Normal (Normal) mg/dL Ur Leukocyte Esterase Large H (Negative) Urine Microscopic RBC Present (0-3) per hpf Urine Microscopic WBC TNTC H (0-3) per hpf Ur Squamous Epith Cells Present (None-Few) per lpf Urine Bacteria Present (None-Few) per hpf Urine Yeast Test Not Performed Ur Culture Indicated? (NO) A. baumannii (PCR) (Not Detect) Emmanuelle albicans (PCR) (Not Detect) C. glabrata (PCR) (Not Detect) C. krusei (PCR) (Not Detect) C. parapsilosis (PCR) (Not Detect) C. tropicalis (PCR) (Not Detect) Enterobacteriac sp PCR (Not Detect) E. cloacae complex PCR (Not Detect) Enterococcus sp PCR (Not Detect) E. coli (PCR) (Not Detect) H. influenzae (PCR) (Not Detect) Hep Bs Antigen (Nonreactive) Hep Bs Antibody mIU/mL Klebsiella oxytoca PCR (Not Detect) Klebsiella pneumoniae (Not Detect) List. monocytogenes PCR (Not Detect) N. meningitidis (PCR) (Not Detect) Proteus species (PCR) (Not Detect) Serratia marcescens PCR (Not Detect) Staphylococcus sp PCR (Not Detect) Staph aureus (PCR) (Not Detect) mecA-Methicil Res Gene (Not Detect) Streptococcus sp PCR (Not Detect) Group A Strep DNA (Not Detect) Group B Strep (PCR) (Not Detect) Strep pneumoniae (PCR) (Not Detect) P. aeruginosa (PCR) (Not Detect) Juan/B-Vanco Res Genes (Not Detect) KPC (blaKPC) Detect PCR (Not Detect) Exam - Constitutional Vitals: Temp Pulse Resp BP Pulse Ox 97.8 F 70 16 130/81 93 03/30/17 10:50 03/30/17 10:50 03/30/17 10:50 03/30/17 10:50 03/30/17 10:50 General appearance: cooperative, no acute distress, obese - Head Head exam: Present: atraumatic, normal inspection, normocephalic - Eye Eye exam: Present: EOMI, normal appearance, PERRL Pupils: Present: normal accommodation - ENT ENT exam: Present: mucous membranes moist - Neck Neck exam: Present: normal inspection - Respiratory Respiratory exam: Present: CTAB. Absent: rales, respiratory distress, rhonchi, wheezes - Cardiovascular Cardiovascular exam: Present: RRR, +S1, +S2 - GI/Abdominal GI/Abdominal exam: Present: normal bowel sounds, soft. Absent: distended, tenderness - Extremities Exam Extremities exam: Present: normal inspection. Absent: joint swelling, pedal edema, tenderness - Back Exam Back exam: Present: CVA tenderness (L), CVA tenderness (R), normal inspection. Absent: paraspinal tenderness, vertebral tenderness Additional comments: Bilateral PNT noted to be draining clear yellow urine. Mild CVA tenderness noted at the PNT insertion sites. - Neurological Exam Neurological exam: Present: alert, oriented X3, no focal deficits - Psychiatric Psychiatric exam: Present: normal affect, normal mood - Skin Skin exam: Present: dry, intact, normal color, warm - VTE Documentation of Mechanical Device: Graduated compression elastic hosiery Consult Discharge Plan - Plan Referrals: Saleem Ramirez DO [Primary Care Provider] - 03/29/17 1:00 pm (Please follow up as schedule...) Prescriptions: Fluconazole 100 MG/50 ML [Diflucan 100 MG/50 ML] 200 mg IVPB DAILY #8 bag - Attending Attestation I examined this patient and my medical decision-making was reviewed with the Resident Physician. I agree with the documented findings, disposition and treatment plan as described except to the extent set forth below.
--- NOTE | 2017-03-30 11:10 | Nephrology Progress Note ---
Date of Encounter: 03/30/17 Time of Encounter: 09:10 - Assessment and Plan (1) APOORVA (acute kidney injury) Current Visit: No Status: Acute APOORVA superimposed on CKD4, baseline 1.7-2.5. S/P bilateral neph tube exchange, followed by septic shower. Renal fct continues to improve, creat 2.26, at baseline. Will continue to monitor. I&O, avoid nephrotoxins. Will follow in office if discharged in 4 weeks with RFP at 2 and 4 weeks. Subjective Interval history: Sitting up in chair, states feeling better. Objective - Vital Signs Vital signs: Vital Signs Temp Pulse Resp BP Pulse Ox 03/30/17 10:50 97.8 F 70 16 130/81 93 03/30/17 07:38 64 03/30/17 07:13 98.6 F 66 19 158/86 95 03/30/17 04:29 98.4 F 64 18 158/83 98 03/30/17 00:21 69 18 98 03/30/17 00:10 66 18 98 03/29/17 23:10 98.0 F 72 18 157/82 98 03/29/17 21:15 73 19 145/87 97 03/29/17 19:26 98.0 F 77 19 145/87 97 03/29/17 16:04 97.8 F 70 16 132/79 93 03/29/17 11:12 97.7 F 70 18 126/73 95 Intake and Output 03/29/17 03/30/17 03/30/17 23:59 07:59 15:59 Intake Total 1460 / 1460 1100 / 1100 460 / 460 Output Total 2175 / 2175 1900 / 1900 400 / 400 Balance -715 / -715 -800 / -800 60 / 60 Intake: IV Fluids 1100 / 1100 100 / 100 0.45% Sodium Chloride 1000 Ml 1000 / 1000 1000 Ml 1,000 ML @ 50 mls/hr IVC .Q20H RAUL Rx#:[id number] Diflucan Premix 200 MG/100 ML 100 / 100 100 / 100 200 mg In 100 ml @ 100 mls/hr IVPB DAILY RAUL Rx#:[id number] Oral 1460 / 1460 360 / 360 Output: Wound Drainage 2175 / 2175 1900 / 1900 400 / 400 Left Back 900 / 900 700 / 700 150 / 150 Right Back 1275 / 1275 1200 / 1200 250 / 250 Other: Meal Dinner Breakfast Percent of Meal Consumed 100% 100% Weight 112.9 kg Blood Glucose* 165 127 Patient Weight 03/30/17 23:59 Weight 112.9 kg - General Appearance General appearance: Present: well-developed, well-nourished, appears started age , obese EENT: Present: mucous membranes moist Neck: Present: no JVD Respiratory: Present: clear Cardiology: Present: edema, regular rate, regular rhythm Additional Comments: mild Gastrointestinal: Present: normoactive bowel sounds, no tenderness Integumentary: Present: warm and dry Neurologic: Present: alert and oriented x3 - Lab 03/30/17 09:58 03/30/17 09:58 Most recent lab results Calcium 8.2 mg/dL (8.6-10.3) L 03/30/17 09:58 Phosphorus 3.3 mg/dL (2.7-4.5) 03/29/17 04:49 Magnesium 1.8 mg/dL (1.6-2.6) 03/29/17 04:49 - VTE Documentation of Mechanical Device: Graduated compression elastic hosiery Consult Discharge Plan - Plan Referrals: Saleem Ramirez DO [Primary Care Provider] - 03/29/17 1:00 pm (Please follow up as schedule...) Prescriptions: Fluconazole 100 MG/50 ML [Diflucan 100 MG/50 ML] 200 mg IVPB DAILY #8 bag
[2017-03-30 11:42] LABS: Eosinophils # 0.2 K/mcL (0.0-0.6); Lymphocytes # 1.8 K/mcL (0.6-4.6); Monocytes # 0.6 K/mcL (0.0-1.3); Neutrophils # 6.6 K/mcL (1.6-8.9)
[2017-03-30 11:52] LABS: Platelet Estimate Normal (Normal)
--- NOTE | 2017-03-30 18:51 | Internal Med Progress Note ---
Date of Encounter: 03/30/17 Time of Encounter: 11:00 - Assessment and plan (1) Sepsis Current Visit: No Status: Acute Assessment and plan: -Secondary to candidemia and candiduria -Continue medical management as below Qualifiers: Sepsis type: sepsis due to unspecified organism Qualified Code(s): A41.9 - Sepsis, unspecified organism (2) Candidemia Current Visit: Yes Status: Acute Assessment and plan: ID and Optho following d/c Micafungin started Fluconazole repeat blood cultures negative (3) Candiduria Current Visit: Yes Status: Acute Assessment and plan: on Fluconazole (4) Influenza Current Visit: Yes Status: Chronic Assessment and plan: Pt recently had four days of Tamiflu prior to hospitalization clinically improving will continue supportive care at this time IV fluids, bronchodilator support, tyelnol as needed (5) Complicated UTI (urinary tract infection) Current Visit: No Status: Acute Assessment and plan: -Patient with candiduria and management as above (6) Acute renal failure superimposed on chronic kidney disease Current Visit: Yes Status: Acute Assessment and plan: Stable; nephrology following and appreciate recommendations Qualifiers: Acute renal failure type: unspecified Chronic kidney disease stage: unspecified stage Qualified Code(s): N17.9 - Acute kidney failure, unspecified ; N18.9 - Chronic kidney disease, unspecified; N18.9 - Chronic kidney disease, unspecified (7) DVT prophylaxis Current Visit: Yes Status: Acute Assessment and plan: heparin SQ - Subjective Interval history: No issues or complaints overnight - Constitutional Vitals: Temp Pulse Resp BP Pulse Ox 97.8 F 69 18 148/81 95 03/30/17 16:16 03/30/17 16:16 03/30/17 16:16 03/30/17 16:16 03/30/17 16:16 General appearance: Present: cooperative, A&O X 3, pleasant, no acute distress, obese, answers questions appropriately - Respiratory Respiratory exam: Present: CTAB. Absent: accessory muscle use, rales, rhonchi, wheezes - Cardiovascular Cardiovascular exam: Present: RRR, +S1, +S2. Absent: diastolic murmur, gallop, rubs, systolic murmur Internal Medicine: Result - Labs CBC & Chem 7: 03/30/17 09:58 03/30/17 09:58 Labs: Short CBC 03/30/17 Range/Units 09:58 WBC 9.2 (4.3-11.1) K/mcL Hgb 8.3 L (12.9-16.9) g/dL Hct 25.9 L (37.5-50.1) % Plt Count 406 H (140-400) K/mcL Neutrophils # 6.6 (1.6-8.9) K/mcL BMP 03/30/17 09:58 Sodium 136 Potassium 4.2 Chloride 107 Carbon Dioxide 22 L BUN 28 H Creatinine 2.26 H Glucose 200 H Calcium 8.2 L Liver Function 03/30/17 Range/Units 09:58 Total Bilirubin 0.2 L (0.3-1.0) mg/dL AST 14 (13-39) Units/L ALT 20 (7-52) Units/L Alkaline Phosphatase 49 (34-104) Units/L Albumin 2.9 L (3.5-5.7) g/dL - ABG Interpretation ABG results: PT/INR, D-dimer PT 13.2 Seconds (9.4-12.1) H 03/22/17 09:59 D-Dimer 1193 ng/mLFEU (0-500) H 03/19/17 17:05 - VTE Documentation of Mechanical Device: Graduated compression elastic hosiery Consult Discharge Plan - Plan Referrals: Saleem Ramirez DO [Primary Care Provider] - 03/29/17 1:00 pm (Please follow up as schedule...) Prescriptions: Fluconazole 100 MG/50 ML [Diflucan 100 MG/50 ML] 200 mg IVPB DAILY #8 bag
[2017-03-30] MEDS: Insulin DETEMIR 100 UNIT/ML X5UNITS SQ SCH (20:31)
[2017-03-31] MEDS: *HR* Heparin 5,000 UNIT/ML VIAL SQ SCH ×2 (06:29→15:00)
[2017-03-31] MEDS: Lactobacillus 1 EACH CAP.SPRINK PO SCH (08:15)
[2017-03-31] MEDS: Diltiazem CD (24hr) 240 MG CAPSULE PO SCH (08:15)
[2017-03-31] MEDS: Folic Acid 1 MG TABLET PO SCH (08:15)
[2017-03-31] MEDS: Cholecalciferol (D-3) 1,000 UNIT TABLET PO SCH (08:15)
[2017-03-31 08:16] LABS: Calcium 8.3 mg/dL (8.6-10.3); Phosphorous 3.5 mg/dL (2.7-4.5); Potassium 3.9 mEq/L (3.5-5.1)
[2017-03-31] MEDS: Insulin LISPRO 300 UNITS/3 ML VIAL SQ SCH ×4 (08:16→12:21)
[2017-03-31] MEDS: Fluconazole 200 MG/100 ML 200 MG/100 ML BAG IVPB SCH (08:19)
[2017-03-31] MEDS: Ondansetron 4 MG/2 ML VIAL IVP PRN (08:21)
[2017-03-31 11:37] VITALS: BP 132/72
--- NOTE | 2017-03-31 12:26 | Nephrology Progress Note ---
Date of Encounter: 03/31/17 Time of Encounter: 12:15 - Assessment and Plan (1) APOORVA (acute kidney injury) Current Visit: No Status: Acute APOORVA superimposed on CKD4, baseline 1.7-2.5. S/P bilateral neph tube exchange, followed by septic shower. Renal fct stable, creat 2.30, at baseline. Will continue to monitor. I&O, avoid nephrotoxins. Will follow in office if discharged in 4 weeks with RFP at 2 and 4 weeks. Subjective Interval history: Sitting up in bed, states feeling better. Objective - Vital Signs Vital signs: Vital Signs Temp Pulse Resp BP Pulse Ox 03/31/17 11:35 99.5 F 71 14 132/72 95 03/31/17 08:15 99.2 F 73 16 132/91 95 03/31/17 07:34 99.2 F 73 16 132/91 95 03/31/17 04:55 62 03/31/17 04:48 98.5 F 70 19 136/59 95 03/31/17 00:19 98.2 F 70 18 138/75 94 03/30/17 23:00 70 03/30/17 20:25 74 03/30/17 19:05 97.9 F 72 19 126/74 97 03/30/17 16:16 97.8 F 69 18 148/81 95 Intake and Output 03/30/17 03/31/17 03/31/17 23:59 07:59 15:59 Intake Total 1240 / 1240 250 / 250 1020 / 1020 Output Total 1200 / 1200 1500 / 1500 0 / 0 Balance 40 / 40 -1250 / -1250 1020 / 1020 Intake: IV Fluids 1000 / 1000 0.45% Sodium Chloride 1000 Ml 1000 / 1000 1000 Ml 1,000 ML @ 50 mls/hr IVC .Q20H RAUL Rx#:[id number] Oral 240 / 240 250 / 250 1020 / 1020 Output: Left Nephrostomy 0 / 0 Right Nephrostomy 0 / 0 Wound Drainage 1200 / 1200 1500 / 1500 0 / 0 Left Back 450 / 450 550 / 550 0 / 0 Right Back 750 / 750 950 / 950 0 / 0 Other: Meal Dinner Percent of Meal Consumed 80% Weight 113.8 kg Blood Glucose* 114 114 193 Patient Weight 03/31/17 23:59 Weight 113.8 kg - General Appearance General appearance: Present: well-developed, well-nourished, appears started age EENT: Present: mucous membranes moist Neck: Present: no JVD Respiratory: Present: clear Cardiology: Present: edema, regular rate, regular rhythm Additional Comments: mild Gastrointestinal: Present: normoactive bowel sounds, no tenderness Integumentary: Present: warm and dry Neurologic: Present: alert and oriented x3 - Lab 03/30/17 09:58 03/31/17 07:40 Most recent lab results Calcium 8.3 mg/dL (8.6-10.3) L 03/31/17 07:40 Phosphorus 3.5 mg/dL (2.7-4.5) 03/31/17 07:40 Magnesium 1.8 mg/dL (1.6-2.6) 03/29/17 04:49 - VTE Documentation of Mechanical Device: Graduated compression elastic hosiery Consult Discharge Plan - Plan Referrals: Saleem Ramirez DO [Primary Care Provider] - 04/06/17 3:30 pm (Please follow up as schedule...) Prescriptions: Fluconazole 100 MG/50 ML [Diflucan 100 MG/50 ML] 200 mg IVPB DAILY #8 bag
--- NOTE | 2017-03-31 16:56 | Discharge Summary ---
Date of Encounter: 03/31/17 Time of Encounter: 11:00 - Discharge Diagnosis (1) Sepsis Priority: Primary Status: Acute Qualifiers: Sepsis type: sepsis due to unspecified organism Qualified Code(s): A41.9 - Sepsis, unspecified organism (2) Candidemia Priority: Primary Status: Acute (3) Candiduria Priority: Primary Status: Acute (4) Influenza Priority: Primary Status: Chronic (5) Complicated UTI (urinary tract infection) Priority: Primary Status: Acute (6) Acute renal failure superimposed on chronic kidney disease Priority: Secondary Status: Acute Qualifiers: Acute renal failure type: unspecified Chronic kidney disease stage: unspecified stage Qualified Code(s): N17.9 - Acute kidney failure, unspecified ; N18.9 - Chronic kidney disease, unspecified; N18.9 - Chronic kidney disease, unspecified - Discharge Medications Prescriptions: Fluconazole 100 MG/50 ML [Diflucan 100 MG/50 ML] 200 mg IVPB DAILY #8 bag Home Medications: Insulin DETEMIR [Levemir] 30 unit SQ HS 30 Days [id number] 01/19/16 [Rx] Sertraline [Zoloft] 25 mg PO DAILY 04/13/16 [History] Insulin ASPART [Novolog Flexpen] 10 - 15 unit SQ TID 11/17/16 [History] Diltiazem CD (24hr) [Cardizem CD] 240 mg PO DAILY 12/15/16 [History] Omeprazole [PriLOSEC] 40 mg PO DAILY 01/12/17 [History] Cholecalciferol (D-3) [Vitamin D] 1,000 unit PO DAILY 03/19/17 [History] Folic Acid [FA-8] 0.8 mg PO DAILY 03/19/17 [History] Lactobacillus Combination No.9 [Adult 50 + Probiotic] 1 cap PO DAILY 03/19/17 [ History] Ondansetron HCl [Zofran] 4 mg PO TID PRN 03/19/17 [History] Fluconazole 100 MG/50 ML [Diflucan 100 MG/50 ML] 200 mg IVPB DAILY #8 bag [Rx] Allergies/Adverse Reactions: 3 Allergy/AdvReac Type Severity Reaction Status Date / Time No Known Allergies Allergy Verified 02/03/17 07:16 Date of admission: 03/20/17 17:31 Primary care physician: Saleem Ramirez DO Consults: 03/22/17 10:05 Consult to Interventional Radiology [CONS] Routine Consulting Provider: Radiology Interventional Cols Reason for Consult: hydro. need bilateral nephrostomy tubes Call Completed: Yes 03/24/17 08:55 Consult to Infectious Diseases [CONS] Routine Consulting Provider: Infectious Disease Dianna Reason for Consult: bacteremia Call Completed: Yes 03/24/17 15:03 Consult to Physician [CONS] Routine Consulting Provider: Haider Borja Reason for Consult: Candidemia, rule out endopthalmitis Time Notified: 15:04 Call Completed: Yes 03/28/17 09:49 Consult to Physical Therapy [CONS] Stat Comment: Evaluate, develop and implement POC Reason for Consult: evaluation for disposition 03/29/17 13:07 Consult to Invasive Line Access Team [CONS] Routine Reason for Consult: Powerglide Insertion Line Type: EPIV 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 Med/Antibiotic Time Notified: 13:07 Call Completed: Yes - Patient Status Disposition: Home Health Service Condition: Fair - Discharge Instructions Instructions: Fluconazole (By mouth), Urinary Tract Infection in Men (DC), Diabetes Mellitus Type 2 in Adults (DC), Nephrostomy Tube Care (DC) Follow Up With: Saleem Ramirez DO [Primary Care Provider] - 04/06/17 3:30 pm (Please follow up as schedule...) Hospital course: Patient is a 66-year-old male with past medical history significant for prostate cancer (patient took 39 radiation treatments between August and October 2016 at [facility] and currently takes Lupron injections with last being on and neck scheduled for May), diabetes controlled with insulin, HLD, HTN , and GERD presents from the ED with chief complaint of shortness of breath, dyspnea, and weakness since 03/15/17. Patient reports he was diagnosed with influenza A on 03/02 and placed on Tamiflu (pt. did not take last does today d/t N/V). Pt. reports becoming progressively worse with cough, SOB, fever, chills, loss of appetite, weakness, nausea, vomiting. Patient denies headache, changes in vision, chest pain, palpitations numbness, tingling, pedal edema, dizziness, lightheadedness, pre-syncope, or syncope. Patient was admitted to the stepdown unit for further evaluation and management. During patients hospital stay he was treated with IV fluconazole for sepsis secondary to Candidemia secondary to Candiduria due to complicated urinary tract infection. Infectious disease was consulted with recommendations that patient continue IV fluconazole as an outpatient for 2 weeks. Patient also finished a 5 day course of Tamiflu for influenza A. Nephrology was also consulted due to acute on chronic stage IV renal failure with recommendations for follow-up as outpatient. Urology was also consulted and bilateral percutaneous nephrostomy tube was placed. - Time Spent with Patient Total time spent providing and/or coordinating discharge services: Less than 30 minutes - Constitutional Vitals: Temp Pulse Resp BP Pulse Ox 99.5 F 71 14 132/72 95 03/31/17 12:20 03/31/17 12:20 03/31/17 12:20 03/31/17 12:20 03/31/17 12:20 General appearance: Present: cooperative, A&O X 3, pleasant, no acute distress, obese, answers questions appropriately - Respiratory Respiratory exam: Present: CTAB. Absent: accessory muscle use, rales, rhonchi, wheezes - Cardiovascular Cardiovascular exam: Present: RRR, +S1, +S2. Absent: diastolic murmur, gallop, rubs, systolic murmur - VTE Documentation of Mechanical Device: Graduated compression elastic hosiery
--- NOTE | 2017-03-31 16:57 | Physician Discharge Referral ---
Home Health/Hosp Referral Info Transfer to: Home Health - Diagnosis (1) Sepsis Priority: Primary Status: Acute (2) Candidemia Priority: Primary Status: Acute (3) Candiduria Priority: Primary Status: Acute (4) Influenza Priority: Primary Status: Chronic (5) Complicated UTI (urinary tract infection) Priority: Primary Status: Acute (6) Acute renal failure superimposed on chronic kidney disease Priority: Secondary Status: Acute - Respiratory Orders Smoking Cessation: Smoking cessation has been advised. For more information, call the [place] [employer] Quit Line at 8-496-CIAA-NOW. - Services Needed Following services are medically necessary services: Nursing, Home Infusion - Transfer Medications Prescriptions: Fluconazole 100 MG/50 ML [Diflucan 100 MG/50 ML] 200 mg IVPB DAILY #8 bag Home Medications: Insulin DETEMIR [Levemir] 30 unit SQ HS 30 Days [id number] 01/19/16 [Rx] Sertraline [Zoloft] 25 mg PO DAILY 04/13/16 [History] Insulin ASPART [Novolog Flexpen] 10 - 15 unit SQ TID 11/17/16 [History] Diltiazem CD (24hr) [Cardizem CD] 240 mg PO DAILY 12/15/16 [History] Omeprazole [PriLOSEC] 40 mg PO DAILY 01/12/17 [History] Cholecalciferol (D-3) [Vitamin D] 1,000 unit PO DAILY 03/19/17 [History] Folic Acid [FA-8] 0.8 mg PO DAILY 03/19/17 [History] Lactobacillus Combination No.9 [Adult 50 + Probiotic] 1 cap PO DAILY 03/19/17 [ History] Ondansetron HCl [Zofran] 4 mg PO TID PRN 03/19/17 [History] Fluconazole 100 MG/50 ML [Diflucan 100 MG/50 ML] 200 mg IVPB DAILY #8 bag [Rx] Allergies/Adverse Reactions: 3 Allergy/AdvReac Type Severity Reaction Status Date / Time No Known Allergies Allergy Verified 02/03/17 07:16 Certification: Further, I certify that my clinical findings support that this patient is homebound (i.e. absences from home require considerable and taxing effort and are for medical reasons or rastafarian services or infrequently or short duration when for other reasons) because: Homebound Reason: Patient requires assistance of a person or device to safely leave home Attestation: My signature below is to certify that this patient is under my care and that I, or nurse practitioner, or a physician's speech pathology assistant working with me, has a face-to -face encounter with this patient.
== END 2017-03-31 18:23 | disposition home health service (06) | DRG 682 ==
LOC: EMEROO 09:58 → 2ANU 09:58 → SUATTDRO 03-20 17:31 → 2NNU 03-23 01:03
PROVIDERS: ADMIT Internal Medicine; ATTEND Hospitalist

== ENCOUNTER 2017-06-06 19:46 | Inpatient (IN) ==
[2017-06-06] MEDS ORDERED: 0.9 % Sodium Chloride 1,000 ML IVC ONE (20:04)
[2017-06-06] MEDS ORDERED: Ondansetron 4 MG/2 ML VIAL IVP ONE (20:04)
[2017-06-06 20:38] LABS: Basophils % 0.2 %; Eosinophils % 0.4 %; Hematocrit 33.6 % (37.5-50.1); Hemoglobin 11.3 g/dL (12.9-16.9); Immature Granulocytes % 0.5 % (0-4); Lymphocytes # 0.6 K/mcL (0.6-4.6); Lymphocytes % 5.1 %; Mean Corpuscular HGB Conc 33.6 g/dL (31.6-35.5); Mean Corpuscular Hemoglobin 30.3 pg (28.0-33.3); Mean Corpuscular Volume 90.1 fL (83.0-100.0); Mean Platelet Volume 8.9 fL (9.4-12.4); Monocytes # 0.6 K/mcL (0.0-1.3); Monocytes % 4.9 %; Platelet Count 367 K/mcL (140-400); Red Blood Count 3.73 M/mcL (4.19-5.50); Red Cell Distribution Width 14.6 % (11.5-14.5); Segmented Neutrophils % 88.9 %
--- NOTE | 2017-06-06 20:40 | Emergency Department Note ---
Disposition Clinical Impression: Pyelonephritis Disposition: Admitted As Inpatient Condition: Fair Time of Disposition: 23:32 Nausea/Vomiting/Diarrhea HPI - General Chief complaint: ED Nausea/Vomiting/Diarrhea Stated complaint: vomiting/fever Time Seen by Provider: 06/06/17 19:58 Source: patient Limitations: no limitations Nursing Notes Reviewed: Yes Vital Signs Reviewed: Yes - History of Present Illness HPI Narrative: Patient is a 66-year-old male past medical history of prostate cancer, diabetes mellitus, hyperlipidemia, hypertension with a past surgical history of bilateral nephrostomy tubes that presents for nausea and vomiting for the past 2 days. Space patient said that he had a fever about 102.4 earlier today. He says the urine produced in his right nephrostomy tube has been dark with some small tinge of blood in the. He says the left nephrostomy tube has been clear. He admits to weakness as well. Patient says that he has bilateral flank pain that radiates down into the suprapubic region. Patient had nephrostomy tubes placed earlier this year by Dr. Ibarra in Urology. He denies any abdominal pain with food. He denies any hematemesis.Denies any diarrhea, constipation, melena, hematochezia. He denies any lower extremity swelling. He admits to some seepage from his left nephrostomy insert site. Denies any bleeding, pus, or drainage from the nephrostomy sites bilaterally. - Related Data Home Medications Medication Instructions Recorded Confirmed Sertraline [Zoloft] 25 mg PO DAILY 04/13/16 06/06/17 Insulin ASPART [Novolog Flexpen] 10 unit SQ TID 11/17/16 06/06/17 Diltiazem CD (24hr) [Cardizem CD] 240 mg PO DAILY 12/15/16 06/06/17 Lactobacillus Combination No.9 1 cap PO DAILY 03/19/17 06/06/17 [Adult 50 + Probiotic] Ondansetron HCl [Zofran] 4 mg PO TID PRN 03/19/17 06/06/17 Multivit-Min/FA/Lycopen/Lutein 1 tab PO DAILY 04/25/17 06/06/17 [Centrum Silver Men Tablet] Esomeprazole Magnesium [Nexium 20 mg PO DAILY 06/06/17 06/06/17 24Hr] Previous Rx's Medication Instructions Recorded Insulin DETEMIR [Levemir] 30 unit SQ HS 30 Days [id number] 01/19/16 Allergies Allergy/AdvReac Type Severity Reaction Status Date / Time No Known Allergies Allergy Verified 06/06/17 22:29 Constitutional: Reports: fever, chills, weakness Cardiovascular: Denies: chest pain, palpitations, dyspnea on exertion, edema, syncope Respiratory: Denies: cough, dyspnea, wheezes, hemoptysis, stridor Genitourinary: Reports: hematuria Musculoskeletal: Reports: back pain Past Medical History - Past Medical History Medical history: Reports: cancer, diabetes, hyperlipidemia, hypertension Surgical history: Reports: orthopedic, other (Left knee arthroplasty), ureteral stent (Bilateral ureteral stents Jan 2016, April 2016, August 2016; Bilateral metal stent placement 01/2017), other (Right nephrostomy tube placement 01/2017 with removal 02/2017) Psychiatric history: Reports: no psych history - Social History Smoking Status: Never smoker Smokeless Tobacco Status: No Alcohol use: Reports: none Drug use: Reports: none Physical Exam - General Limitations: no limitations General appearance: alert, in no apparent distress - Chest Chest inspection: Present: normal inspection, symmetric chest wall rise - Respiratory Respiratory exam: Present: normal lung sounds bilaterally - Cardiovascular Cardiovascular exam: Present: regular rate, normal rhythm, normal heart sounds, +S1, +S2. Absent: +S3, +S4 - Abdominal Exam Abdominal exam: Present: soft, distention, normal bowel sounds. Absent: Non- Tender, guarding, rebound, rigidity, Gregg's sign, Rovsing's sign, tenderness at McBurney's Point - Extremities Exam Extremities exam: Present: normal inspection, full ROM, normal capillary refill. Absent: tenderness, pedal edema, calf tenderness - Back Exam Back exam: Present: CVA tenderness (R), CVA tenderness (L), other (Minor seepage from left nephrostomy tube insertion site.No bleeding or pus noted bilaterally.) Course Course Narrative: Abdomen/Pelvis CT 06/06/17 20:32 IMPRESSION: There has been interval removal of the ureteral stents seen previously. On the right, a nephrostomy tube is present, and the hydronephrosis seen previously has resolved. There is continued perinephric and periureteral fat stranding on the right, raising the possibility of pyelitis/pyelonephritis. On the left, a nephrostomy tube has been placed. Despite that, there continues to be mild left hydronephrosis and moderate left hydroureter. Perinephric and periureteral fat stranding are detected, raising the possibility of pyelitis/pyelonephritis. Continued evidence of marked pericystic fat stranding involving the urinary bladder, suggesting cystitis. D/ / Bryan Henderson MD / Bryan Henderson MD Interpreting Provider: Bryan Henderson MD Patient was given zofran to control and nausea/vomiting and given fluids for dehydration. Labs showed mild leukocytosis. Abdominal CT showed signs suspicious of pyelonephritis. Looking at previous urine cultures, patient showed to grow Staph epidermidis and arline tropicalis. Microbiology showed sensitivities to daptomycin and flyconazole. Urine culture was obtained from R nephrostomy tube site and sent for culture. Spoke to urologist Dr. Ibarra and he recommended to start the patient on daptomycin and fluconazole. I started the patient on daptomycin 675 mg q48H instead of 24H given setting of CKD. I also started patient on 400 mg of fluconazole, however he should be continued with a 50% reduction on next dose given renal function. Spoke to hospitalist Dr. Hernandez who agreed to admit the patient. Vital Signs Temperature 99.4 F 06/06/17 19:47 Pulse Rate 111 06/06/17 19:47 Respiratory Rate 20 06/06/17 19:47 Blood Pressure 171/93 06/06/17 19:47 O2 Sat by Pulse Oximetry 93 06/06/17 19:47 Temperature 99.4 F 06/06/17 19:47 Pulse Rate 111 06/06/17 19:47 Respiratory Rate 20 06/06/17 19:47 Blood Pressure 171/93 06/06/17 19:47 O2 Sat by Pulse Oximetry 93 06/06/17 19:47 Oxygen Delivery Oxygen Delivery Room Air Nausea/Vomiting/Diarrhea - Lab Data Result diagrams: 06/06/17 20:23 06/06/17 20:23 Lab Results 06/06/17 06/06/17 06/06/17 Range/Units 20:23 20:23 21:39 WBC 11.3 H (4.3-11.1) K/mcL RBC 3.73 L (4.19-5.50) M/mcL Hgb 11.3 L (12.9-16.9) g/dL Hct 33.6 L (37.5-50.1) % MCV 90.1 (83.0-100.0) fL MCH 30.3 (28.0-33.3) pg MCHC 33.6 (31.6-35.5) g/dL RDW 14.6 H (11.5-14.5) % Plt Count 367 (140-400) K/mcL MPV 8.9 L (9.4-12.4) fL Immature Gran % 0.5 (0-4) % Seg Neutrophils % 88.9 % Lymphocytes % 5.1 % Monocytes % 4.9 % Eosinophils % 0.4 % Basophils % 0.2 % Neutrophils # 10.0 H (1.6-8.9) K/mcL Lymphocytes # 0.6 (0.6-4.6) K/mcL Monocytes # 0.6 (0.0-1.3) K/mcL Eosinophils # 0.0 (0.0-0.6) K/mcL Basophils # 0.0 (0.0-0.2) K/mcL Sodium 138 (136-145) mEq/L Potassium 3.9 (3.5-5.1) mEq/L Chloride 107 (98-107) mEq/L Carbon Dioxide 21 L (23-29) mEq/L BUN 40 H (8-23) mg/dL Creatinine 2.65 H (0.70-1.30) mg/dL Est GFR ( Amer) 29 L (> 60) Est GFR (Non-Af Amer) 24 L (> 60) BUN/Creatinine Ratio 15 (6-26) Glucose 236 H (70-105) mg/dL Calculated Osmolality 303 H (280-300) Lactic Acid 1.6 (0.5-2.2) mmol/L Calcium 8.8 (8.6-10.3) mg/dL Total Bilirubin 0.3 (0.3-1.0) mg/dL AST 10 L (13-39) Units/L ALT 11 (7-52) Units/L Alkaline Phosphatase 67 (34-104) Units/L Serum Total Protein 6.6 (6.4-8.9) g/dL Albumin 3.6 (3.5-5.7) g/dL Globulin 3.0 (2.4-3.5) g/dL Albumin/Globulin Ratio 1.2 (1.1-2.2) Lipase 15 (11-82) Units/L Urine Color (Yellow) Urine Clarity (Clear) Urine pH (5.0-8.0) pH Units Ur Specific [place] (1.010-1.025) Urine Protein (Neg-Trace) mg/dL Urine Glucose (UA) (Normal) mg/dL Urine Ketones (Negative) mg/dL Urine Blood (Negative) Urine Nitrite (Negative) Urine Bilirubin (Negative) Urine Urobilinogen (Normal) mg/dL Ur Leukocyte Esterase (Negative) Urine Microscopic RBC (0-3) per hpf Urine Microscopic WBC (0-3) per hpf Ur Squamous Epith Cells (None-Few) per lpf Urine Bacteria (None-Few) per hpf Hyaline Casts (None-Few) per lpf Ur Culture Indicated? (NO) 06/06/17 Range/Units 22:15 WBC (4.3-11.1) K/mcL RBC (4.19-5.50) M/mcL Hgb (12.9-16.9) g/dL Hct (37.5-50.1) % MCV (83.0-100.0) fL MCH (28.0-33.3) pg MCHC (31.6-35.5) g/dL RDW (11.5-14.5) % Plt Count (140-400) K/mcL MPV (9.4-12.4) fL Immature Gran % (0-4) % Seg Neutrophils % % Lymphocytes % % Monocytes % % Eosinophils % % Basophils % % Neutrophils # (1.6-8.9) K/mcL Lymphocytes # (0.6-4.6) K/mcL Monocytes # (0.0-1.3) K/mcL Eosinophils # (0.0-0.6) K/mcL Basophils # (0.0-0.2) K/mcL Sodium (136-145) mEq/L Potassium (3.5-5.1) mEq/L Chloride (98-107) mEq/L Carbon Dioxide (23-29) mEq/L BUN (8-23) mg/dL Creatinine (0.70-1.30) mg/dL Est GFR ( Amer) (> 60) Est GFR (Non-Af Amer) (> 60) BUN/Creatinine Ratio (6-26) Glucose (70-105) mg/dL Calculated Osmolality (280-300) Lactic Acid (0.5-2.2) mmol/L Calcium (8.6-10.3) mg/dL Total Bilirubin (0.3-1.0) mg/dL AST (13-39) Units/L ALT (7-52) Units/L Alkaline Phosphatase (34-104) Units/L Serum Total Protein (6.4-8.9) g/dL Albumin (3.5-5.7) g/dL Globulin (2.4-3.5) g/dL Albumin/Globulin Ratio (1.1-2.2) Lipase (11-82) Units/L Urine Color Yellow (Yellow) Urine Clarity Cloudy A (Clear) Urine pH 6.5 (5.0-8.0) pH Units Ur Specific [place] 1.011 (1.010-1.025) Urine Protein 100 H (Neg-Trace) mg/dL Urine Glucose (UA) Normal (Normal) mg/dL Urine Ketones Negative (Negative) mg/dL Urine Blood Large H (Negative) Urine Nitrite Negative (Negative) Urine Bilirubin Negative (Negative) Urine Urobilinogen Normal (Normal) mg/dL Ur Leukocyte Esterase Moderate H (Negative) Urine Microscopic RBC TNTC H (0-3) per hpf Urine Microscopic WBC TNTC H (0-3) per hpf Ur Squamous Epith Cells Few (None-Few) per lpf Urine Bacteria None Seen (None-Few) per hpf Hyaline Casts None Seen (None-Few) per lpf Ur Culture Indicated? YES A (NO)
[2017-06-06 21:03] LABS: Albumin 3.6 g/dL (3.5-5.7); Albumin/Globulin Ratio 1.2 (1.1-2.2); Bilirubin,Total 0.3 mg/dL (0.3-1.0); Calcium 8.8 mg/dL (8.6-10.3); Potassium 3.9 mEq/L (3.5-5.1); Total Protein 6.6 g/dL (6.4-8.9)
[2017-06-06] MEDS ORDERED: Fluconazole 400 MG/200 ML 400 MG/200 ML BAG IVPB ONE (22:26)
[2017-06-06 22:27] LABS: Bilirubin,Urine Negative (Negative); Blood,Urine Large (Negative); Clarity,Urine Cloudy (Clear); Color,Urine Yellow (Yellow); Glucose,Urine (UA) Normal (Normal); Ketones,Urine Negative (Negative); Leukocyte Esterase,Urine Moderate (Negative); Nitrite,Urine Negative (Negative); PH,Urine 6.5 pH Units (5.0-8.0); Protein,Urine 100 mg/dL (Neg-Trace); Specific Gravity,Urine 1.011 (1.010-1.025); Urobilinogen,Urine Normal (Normal)
[2017-06-06 22:29] LABS: Bacteria,Urine None Seen per hpf (None-Few); Hyaline Casts,Urine None Seen per lpf (None-Few); RBC,Urine TNTC per hpf (0-3); Squamous Epithelial Cell,Urine Few per lpf (None-Few); WBC,Urine TNTC per hpf (0-3)
[2017-06-06] MEDS ORDERED: Ondansetron ODT 4 MG TAB.RAPDIS SL ONE (23:14)
--- NOTE | 2017-06-06 23:16 | Emergency Department Note ---
Disposition Clinical Impression: Pyelonephritis Sepsis Qualifiers: Sepsis type: sepsis due to unspecified organism Qualified Code(s): A41.9 - Sepsis, unspecified organism Disposition: Admitted As Inpatient Condition: Fair Nausea/Vomiting/Diarrhea HPI - General Chief complaint: ED Nausea/Vomiting/Diarrhea Stated complaint: vomiting/fever Time Seen by Provider: 06/06/17 19:58 Source: patient Limitations: no limitations Nursing Notes Reviewed: Yes Vital Signs Reviewed: Yes - Related Data Home Medications Medication Instructions Recorded Confirmed Sertraline [Zoloft] 25 mg PO DAILY 04/13/16 06/06/17 Insulin ASPART [Novolog Flexpen] 10 unit SQ TID 11/17/16 06/06/17 Diltiazem CD (24hr) [Cardizem CD] 240 mg PO DAILY 12/15/16 06/06/17 Lactobacillus Combination No.9 1 cap PO DAILY 03/19/17 06/06/17 [Adult 50 + Probiotic] Ondansetron HCl [Zofran] 4 mg PO TID PRN 03/19/17 06/06/17 Multivit-Min/FA/Lycopen/Lutein 1 tab PO DAILY 04/25/17 06/06/17 [Centrum Silver Men Tablet] Esomeprazole Magnesium [Nexium 20 mg PO DAILY 06/06/17 06/06/17 24Hr] Previous Rx's Medication Instructions Recorded Insulin DETEMIR [Levemir] 30 unit SQ HS 30 Days [id number] 01/19/16 Allergies Allergy/AdvReac Type Severity Reaction Status Date / Time No Known Allergies Allergy Verified 06/06/17 22:29 Constitutional: Reports: fever, chills, weakness Cardiovascular: Denies: chest pain, palpitations, dyspnea on exertion, edema, syncope Respiratory: Denies: cough, dyspnea, wheezes, hemoptysis, stridor Genitourinary: Reports: hematuria Musculoskeletal: Reports: back pain Past Medical History - Past Medical History Medical history: Reports: cancer, diabetes, hyperlipidemia, hypertension Surgical history: Reports: orthopedic, other (Left knee arthroplasty), ureteral stent (Bilateral ureteral stents Jan 2016, April 2016, August 2016; Bilateral metal stent placement 01/2017), other (Right nephrostomy tube placement 01/2017 with removal 02/2017) Psychiatric history: Reports: no psych history - Social History Smoking Status: Never smoker Smokeless Tobacco Status: No Alcohol use: Reports: none Drug use: Reports: none Physical Exam - General Limitations: no limitations General appearance: alert, in no apparent distress Course Vital Signs Temperature 99.4 F 06/06/17 19:47 Pulse Rate 111 06/06/17 19:47 Respiratory Rate 20 06/06/17 19:47 Blood Pressure 171/93 06/06/17 19:47 O2 Sat by Pulse Oximetry 93 06/06/17 19:47 Temperature 98.8 F 06/06/17 23:59 Pulse Rate 93 06/06/17 23:59 Respiratory Rate 17 06/06/17 23:59 Blood Pressure 148/73 06/06/17 23:59 O2 Sat by Pulse Oximetry 94 06/06/17 23:59 Oxygen Delivery Oxygen Delivery Room Air Nausea/Vomiting/Diarrhea - Lab Data Result diagrams: 06/06/17 20:23 06/06/17 20:23 Lab Results 06/06/17 06/06/17 06/06/17 Range/Units 20:23 20:23 21:39 WBC 11.3 H (4.3-11.1) K/mcL RBC 3.73 L (4.19-5.50) M/mcL Hgb 11.3 L (12.9-16.9) g/dL Hct 33.6 L (37.5-50.1) % MCV 90.1 (83.0-100.0) fL MCH 30.3 (28.0-33.3) pg MCHC 33.6 (31.6-35.5) g/dL RDW 14.6 H (11.5-14.5) % Plt Count 367 (140-400) K/mcL MPV 8.9 L (9.4-12.4) fL Immature Gran % 0.5 (0-4) % Seg Neutrophils % 88.9 % Lymphocytes % 5.1 % Monocytes % 4.9 % Eosinophils % 0.4 % Basophils % 0.2 % Neutrophils # 10.0 H (1.6-8.9) K/mcL Lymphocytes # 0.6 (0.6-4.6) K/mcL Monocytes # 0.6 (0.0-1.3) K/mcL Eosinophils # 0.0 (0.0-0.6) K/mcL Basophils # 0.0 (0.0-0.2) K/mcL Sodium 138 (136-145) mEq/L Potassium 3.9 (3.5-5.1) mEq/L Chloride 107 (98-107) mEq/L Carbon Dioxide 21 L (23-29) mEq/L BUN 40 H (8-23) mg/dL Creatinine 2.65 H (0.70-1.30) mg/dL Est GFR ( Amer) 29 L (> 60) Est GFR (Non-Af Amer) 24 L (> 60) BUN/Creatinine Ratio 15 (6-26) Glucose 236 H (70-105) mg/dL Calculated Osmolality 303 H (280-300) Lactic Acid 1.6 (0.5-2.2) mmol/L Calcium 8.8 (8.6-10.3) mg/dL Total Bilirubin 0.3 (0.3-1.0) mg/dL AST 10 L (13-39) Units/L ALT 11 (7-52) Units/L Alkaline Phosphatase 67 (34-104) Units/L Serum Total Protein 6.6 (6.4-8.9) g/dL Albumin 3.6 (3.5-5.7) g/dL Globulin 3.0 (2.4-3.5) g/dL Albumin/Globulin Ratio 1.2 (1.1-2.2) Lipase 15 (11-82) Units/L Urine Color (Yellow) Urine Clarity (Clear) Urine pH (5.0-8.0) pH Units Ur Specific [place] (1.010-1.025) Urine Protein (Neg-Trace) mg/dL Urine Glucose (UA) (Normal) mg/dL Urine Ketones (Negative) mg/dL Urine Blood (Negative) Urine Nitrite (Negative) Urine Bilirubin (Negative) Urine Urobilinogen (Normal) mg/dL Ur Leukocyte Esterase (Negative) Urine Microscopic RBC (0-3) per hpf Urine Microscopic WBC (0-3) per hpf Ur Squamous Epith Cells (None-Few) per lpf Urine Bacteria (None-Few) per hpf Hyaline Casts (None-Few) per lpf Ur Culture Indicated? (NO) 06/06/17 Range/Units 22:15 WBC (4.3-11.1) K/mcL RBC (4.19-5.50) M/mcL Hgb (12.9-16.9) g/dL Hct (37.5-50.1) % MCV (83.0-100.0) fL MCH (28.0-33.3) pg MCHC (31.6-35.5) g/dL RDW (11.5-14.5) % Plt Count (140-400) K/mcL MPV (9.4-12.4) fL Immature Gran % (0-4) % Seg Neutrophils % % Lymphocytes % % Monocytes % % Eosinophils % % Basophils % % Neutrophils # (1.6-8.9) K/mcL Lymphocytes # (0.6-4.6) K/mcL Monocytes # (0.0-1.3) K/mcL Eosinophils # (0.0-0.6) K/mcL Basophils # (0.0-0.2) K/mcL Sodium (136-145) mEq/L Potassium (3.5-5.1) mEq/L Chloride (98-107) mEq/L Carbon Dioxide (23-29) mEq/L BUN (8-23) mg/dL Creatinine (0.70-1.30) mg/dL Est GFR ( Amer) (> 60) Est GFR (Non-Af Amer) (> 60) BUN/Creatinine Ratio (6-26) Glucose (70-105) mg/dL Calculated Osmolality (280-300) Lactic Acid (0.5-2.2) mmol/L Calcium (8.6-10.3) mg/dL Total Bilirubin (0.3-1.0) mg/dL AST (13-39) Units/L ALT (7-52) Units/L Alkaline Phosphatase (34-104) Units/L Serum Total Protein (6.4-8.9) g/dL Albumin (3.5-5.7) g/dL Globulin (2.4-3.5) g/dL Albumin/Globulin Ratio (1.1-2.2) Lipase (11-82) Units/L Urine Color Yellow (Yellow) Urine Clarity Cloudy A (Clear) Urine pH 6.5 (5.0-8.0) pH Units Ur Specific [place] 1.011 (1.010-1.025) Urine Protein 100 H (Neg-Trace) mg/dL Urine Glucose (UA) Normal (Normal) mg/dL Urine Ketones Negative (Negative) mg/dL Urine Blood Large H (Negative) Urine Nitrite Negative (Negative) Urine Bilirubin Negative (Negative) Urine Urobilinogen Normal (Normal) mg/dL Ur Leukocyte Esterase Moderate H (Negative) Urine Microscopic RBC TNTC H (0-3) per hpf Urine Microscopic WBC TNTC H (0-3) per hpf Ur Squamous Epith Cells Few (None-Few) per lpf Urine Bacteria None Seen (None-Few) per hpf Hyaline Casts None Seen (None-Few) per lpf Ur Culture Indicated? YES A (NO) Attestation Statement - Attestation Attestation: I, Anthony Solis, examined this patient and my medical decision-making was reviewed with the [employer]/PA/Advanced Practice Nurse/Resident Physician. I agree with the documented findings, disposition and treatment plan as described except to the extent set forth below. 66-year-old male presents emergency Department with concerns of nausea, vomiting , rigor and chills. Patient states he has had similar symptoms in the past with pyelonephritis. Patient states he noticed his urine was darker today than normal. This is occurred multiple times in the past. Patient follows Dr. Lott for renal failure as well as Dr. Ibarra for urology. Patient is alert and oriented during the evaluation. Urinalysis was collected from bilateral nephrostomy tubes. Patient has previous microbiology specimens which show sensitivity to daptomycin and fluconazole. Dr. Ibarra recommended starting these medications and admitting to hospitalist for further care and evaluation of possible sepsis.
[2017-06-07] MEDS: DAPTOMYCIN IVPB SCH (01:44)
[2017-06-07] MEDS: SODIUM CHLORIDE 0.9% IVPB SCH (01:44)
[2017-06-07] MEDS ORDERED: Naloxone 0.4 MG/ML INJ IVP PRN (03:47)
--- NOTE | 2017-06-07 03:47 | Internal Med History&Physical ---
<Rosalee Wooten H - Last Filed: 06/07/17 04:57> Date of Encounter: 06/07/17 Time of Encounter: 03:47 Internal Medicine - H&P: HPI History of present illness: Mr. Rivera is a 66 year old male with past medical history of DM 2, HLD, HTN, prostate cancer s/p TURP and radiation, chronic and recurrent bouts of pyelonephritis resulting in bilateral nephrostomy tubes who presented [facility] on 06/06/2017 with complaints of abdominal pain, fever, nausea, and vomiting. Patient and patient's state that his history of present illness over the past few days has been identical to his other bouts of pyelonephritis. They state patient reported some reflux type symptoms on Monday with an episode of emesis. Monday, patient started to feel worse. On Monday, patient developed fevers and had another episode of emesis. Today, patient continued with nausea and vomiting, fevers and chills. Patient follows with Dr. Lott as his customer support coordinator and Dr. Ibarra as his urologist. Patient states the output in his right nephrostomy bag became cloudy and dark for the past few days. Patient denying any chest pain, palpitations, shortness of breath, or diaphoresis. He denies any diarrhea, hematochezia, melena, or hematemesis. He denies dizziness, lightheadedness, or headaches. In the emergency department, patient underwent CT scanning which demonstrated right-sided perinephric and periureteral stranding suggestive of pyelonephritis. There is left-sided hydronephrosis as well as perinephric and periureteral stranding suggestive of pyelonephritis. Also continued pericystic fat stranding consistent with cystitis. Dr. Ibarra was called from the ED who recommended the patient being started on daptomycin and fluconazole based on previous microbiology susceptibilities. Patient was admitted to the hospital service. Past Med Surg Social Fam HX - Past Medical History Attestation: Yes The following information was validated with the patient. Source: patient, old records reviewed Medical history: cancer (prostate), diabetes, hyperlipidemia, hypertension, other (chronic kidney disease) Psychiatric history: no psych history - Past Surgical History Surgical History: orthopedic, other (Left knee arthroplasty), ureteral stent ( Bilateral ureteral stents Jan 2016, April 2016, August 2016; Bilateral metal stent placement 01/2017), other (Right nephrostomy tube placement 01/2017 with removal 02/2017) - Social History Smoking Status: Never smoker Smokeless Tobacco Status: No Alcohol use: none Drug use: none - Family History Father Family Member Ethnicity: Non- Living Status: Hx Family Cardiac Disorders: No Hx Family Respiratory Disorders: No Hx Family Cancer: Yes (Colon) Hx Family GI Disorders: No Hx Family Endocrine Disorder: Yes (Diabetes) Hx Family Neuromuscular Disorders: No Hx Family Neurologic Disorders: No Hx Family HEENT Disorders: No Hx Family Autoimmune Disorders: No Brother Family Member Ethnicity: Non- Living Status: Hx Family Cancer: Yes (Colon and lung) Mother Family Member Ethnicity: Non- Living Status: Sister Family Member Ethnicity: Non- Living Status: Still Living Hx Family Endocrine Disorder: Yes (DM) Internal Medicine - H&P: Meds Insulin DETEMIR [Levemir] 30 unit SQ HS 30 Days [id number] 01/19/16 [Rx] Sertraline [Zoloft] 25 mg PO DAILY 04/13/16 [History] Insulin ASPART [Novolog Flexpen] 10 unit SQ TID 11/17/16 [History] Diltiazem CD (24hr) [Cardizem CD] 240 mg PO DAILY 12/15/16 [History] Lactobacillus Combination No.9 [Adult 50 + Probiotic] 1 cap PO DAILY 03/19/17 [ History] Ondansetron HCl [Zofran] 4 mg PO TID PRN 03/19/17 [History] Multivit-Min/FA/Lycopen/Lutein [Centrum Silver Men Tablet] 1 tab PO DAILY [History] Esomeprazole Magnesium [Nexium 24Hr] 20 mg PO DAILY 06/06/17 [History] 3 Allergy/AdvReac Type Severity Reaction Status Date / Time No Known Allergies Allergy Verified 06/06/17 22:29 All Systems PM: A 10-system review of systems was performed and is negative for pertinent findings except as documented above in the HPI. - Constitutional Constitutional: chills, fever(s), no lethargy, no night sweats, no weight gain, no weight loss - EENT Eyes: no blurry vision, no change in vision Nose, mouth and throat: no nasal congestion, no nasal discharge - Cardiovascular Cardiovascular ROS IM: no chest pain, no claudication, no diaphoresis, no dyspnea, no dyspnea on exertion, no edema, no irregular heart rhythm, no lightheadedness, no orthopnea, no palpitations, no paroxysmal nocturnal dyspnea , no syncope - Respiratory Respiratory: no cough, no hemoptysis, no chest congestion - Gastrointestinal Gastrointestinal: bloating, heartburn, nausea, vomiting, no abdominal pain, no change in stool character, no coffee ground emesis, no diarrhea, no hematemesis , no hematochezia, no loose stools, no melena - Genitourinary Genitourinary ROS male: flank pain, hematuria (right sided) - Musculoskeletal Musculoskeletal ROS IM: no arthralgias, no joint swelling, no muscle cramps - Integumentary Integumentary IM: no erythema, no rash, no jaundice - Neurological Neurological ROS: no focal weakness, no frequent falls - Endocrine Endocrine IM: no cold intolerance, no heat intolerance - Constitutional Vitals: Temp Pulse Resp BP Pulse Ox 98.1 F 78 16 143/77 94 06/07/17 03:21 06/07/17 03:21 06/07/17 03:21 06/07/17 03:21 06/07/17 03:21 General appearance: Present: cooperative, A&O X 3, pleasant, no acute distress, answers questions appropriately - Head Head exam: Present: atraumatic, normocephalic - Eye Eye exam: Present: conjuntiva pink, sclera anicteric - Neck Neck exam general surgery: Present: supple, trachea midline. Absent: lymphadenopathy - Respiratory Respiratory exam: Present: CTAB. Absent: accessory muscle use, rales, rhonchi, wheezes - Cardiovascular Cardiovascular exam: Present: RRR, +S1, +S2. Absent: diastolic murmur, gallop, rubs, systolic murmur - GI/Abdominal GI/Abdominal exam: Present: normal bowel sounds, soft, no peritoneal signs. Absent: distended, firm, guarding, tenderness Additional comments: mild flank tenderness. No erythema surrounding nephrostomy sites. Dressings c/d/ i. - Extremities Exam Extremities exam: Present: warm, radial pulses palpable and symmetrical. Absent : calf tenderness, cyanotic, pedal edema - Neurological Exam Neurological exam: Present: CN II-XII intact, oriented X3, no focal deficits. Absent: pronater drift, facial droop, speech deficit - Psychiatric Psychiatric exam: Present: normal affect, normal mood - Skin Skin exam: Present: dry, intact Internal Med - H&P Results - Labs CBC & Chem 7: 06/06/17 20:23 06/06/17 20:23 - Assessment and plan (1) Hypertension Current Visit: No Status: Chronic Assessment and plan: Resume home Cardizem. Qualifiers: Hypertension type: essential hypertension Qualified Code(s): I10 - Essential (primary) hypertension (2) Diabetes mellitus Current Visit: No Status: Chronic Assessment and plan: Patient currently NPO -Q6hr Accu-Cheks, low dose ss insulin coverage. 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 -We will provide gentle IV hydration and avoid nephrotoxic agents. -Renally dosed fluconazole. (4) History of prostate cancer Current Visit: No Status: Chronic Assessment and plan: Patient underwent TURP and radiation in the fall of 2016. (5) DVT prophylaxis Current Visit: No Status: Acute Assessment and plan: EPCDs (6) Pyelonephritis Current Visit: Yes Status: Acute Assessment and plan: 66-year-old male presents with acute bilateral pyelonephritis. Patient follows with Dr. Ibarra as an outpatient as he has had recurrent bouts of pyelonephritis secondary to complications of prostate TURP procedure and radiation. Patient has bilateral nephrostomy tubes that were scheduled to be replaced next week. -Urology consult from the emergency department. -We will continue IV daptomycin -IV fluconazole at 200 mg IV every 24 hours (patient's creatinine clearance is less than 50). -Gentle IV hydration at 75 per hour. -Pain medication with SL oxycodone. -Follow-up urology recommendations. - Time Spent With Patient Total time spent is greater than 50% in coordination of care (as documented) at patient's floor/unit and/or counseling patient: <Danielle Hernandez - Last Filed: 06/07/17 06:07> Date of Encounter: 06/07/17 Internal Medicine - H&P: HPI History of present illness: Mr. Rivera is a 66 year old male All Systems PM: A 10-system review of systems was performed and is negative for pertinent findings except as documented above in the HPI. - Constitutional Vitals: Temp Pulse Resp BP Pulse Ox 98.1 F 78 16 143/77 94 06/07/17 03:21 06/07/17 03:21 06/07/17 03:21 06/07/17 03:21 06/07/17 03:21 Internal Med - H&P Results - Labs CBC & Chem 7: 06/06/17 20:23 06/06/17 20:23 - Attending Attestation I have seen and examined this patient independently. I have discussed with resident physician Dr. Escobar regarding the management plan. Agree with the documentation. - Assessment and plan (1) Hypertension Current Visit: No Status: Chronic Qualifiers: Hypertension type: essential hypertension Qualified Code(s): I10 - Essential (primary) hypertension (2) Diabetes mellitus Current Visit: No Status: Chronic Qualifiers: Diabetes mellitus type: type 2 Diabetes mellitus monitor technician insulin use: with monitor technician use Diabetes mellitus complication status: with kidney complications Diabetes mellitus complication detail: with chronic kidney disease Chronic kidney disease stage: stage 3 (moderate) Qualified Code(s): E11.22 - Type 2 diabetes mellitus with diabetic chronic kidney disease; N18.3 - Chronic kidney disease, stage 3 (moderate); N18.3 - Chronic kidney disease, stage 3 (moderate); Z79.4 - intermediate (current) use of insulin; Z79.4 - intermediate (current) use of insulin; 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
[2017-06-07] MEDS ORDERED: *HR* Dextrose 50 % in Water (Syg) 50 ML SYRINGE IVP PRN (03:50)
[2017-06-07] MEDS ORDERED: D5% in Water 1,000 ML IVC PRN (03:50)
[2017-06-07] MEDS ORDERED: Dextrose Gel 15 GM/37.5 ML TUBE PO PRN ×2 (03:50)
[2017-06-07] MEDS: 0.9 % Sodium Chloride 1,000 ML IVC SCH ×2 (04:51→20:03)
[2017-06-07] MEDS: Insulin LISPRO 300 UNITS/3 ML VIAL SQ SCH ×4 (06:24→21:55)
[2017-06-07] MEDS: Ondansetron 4 MG/2 ML VIAL IVP PRN ×3 (06:27→21:59)
[2017-06-07 06:33] LABS: Basophils % 0.3 %; Eosinophils # 0.1 K/mcL (0.0-0.6); Eosinophils % 0.7 %; Hematocrit 29.8 % (37.5-50.1); Hemoglobin 9.9 g/dL (12.9-16.9); Immature Granulocytes % 0.5 % (0-4); Lymphocytes # 0.9 K/mcL (0.6-4.6); Lymphocytes % 10.6 %; Mean Corpuscular HGB Conc 33.2 g/dL (31.6-35.5); Mean Corpuscular Hemoglobin 29.8 pg (28.0-33.3); Mean Corpuscular Volume 89.8 fL (83.0-100.0); Mean Platelet Volume 8.9 fL (9.4-12.4); Monocytes # 0.8 K/mcL (0.0-1.3); Monocytes % 8.6 %; Neutrophils # 6.9 K/mcL (1.6-8.9); Platelet Count 322 K/mcL (140-400); Red Blood Count 3.32 M/mcL (4.19-5.50); Red Cell Distribution Width 14.7 % (11.5-14.5); Segmented Neutrophils % 79.3 %
[2017-06-07 06:34] LABS: INR 1.2; Prothrombin Time 12.5 Seconds (9.4-12.1)
[2017-06-07 06:37] LABS: Activated Partial Thrombo Time 32.6 Seconds (26.0-36.0)
[2017-06-07 06:47] LABS: Calcium 8.5 mg/dL (8.6-10.3); Magnesium 1.8 mg/dL (1.6-2.6); Phosphorous 3.5 mg/dL (2.7-4.5); Potassium 3.7 mEq/L (3.5-5.1)
--- NOTE | 2017-06-07 07:01 | Urology - Consult Note ---
Date of Encounter: 06/07/17 Time of Encounter: 06:59 - Assessment and Plan (1) Pyelonephritis Current Visit: Yes Status: Acute Assessment and plan: 66-year-old man with pyelonephritis. He previously had Staphylococcus and Emmanuelle in his urine. I recommend continuing treatment with daptomycin and fluconazole. A urine culture was obtained from the right nephrostomy tube per my request. I will consult to interventional radiology for a nephrostomy tube changed today or tomorrow. I answered all their questions. Continue IV antibiotic until culture results have returned. (2) Prostate cancer Current Visit: No Status: Acute Assessment and plan: PSA is down to 0.39. He is having a good treatment response on androgen deprivation therapy. Urology CN:HPI Consult date: 06/07/17 Reason for consult Urology: Other (UTI, nephrostomy tubes) Requesting physician: Sharyn Solis History of present illness: 66-year-old man well-known to the urology service returns with a febrile urinary tract infection. He has a history of prostate cancer which is locally advanced. He is status post TURP. He has bilateral ureteral obstruction. He previously had stents, but they failed. Nephrostomy tubes were then placed on 03/22/2017. He noted nausea and emesis over the last 4 days. He began to have fevers yesterday. He was having some bilateral flank pain as well. The pain was near his nephrostomy tube. He is scheduled to have nephrostomy tubes changed in 1 week. He came to the emergency department. In workup he was noted to have a leukocytosis. He was admitted for IV antibiotic and antifungal. He has been afebrile since admission. The nephrostomy tubes are draining well. He is feeling somewhat better today. PSA was 0.39 on 05/24/2017. He is on androgen deprivation therapy. Past Med Surg Social Fam HX - Past Medical History Medical history: cancer (prostate), diabetes, hyperlipidemia, hypertension, other (chronic kidney disease) Psychiatric history: no psych history - Past Surgical History Surgical History: orthopedic, other (Left knee arthroplasty), ureteral stent ( Bilateral ureteral stents Jan 2016, April 2016, August 2016; Bilateral metal stent placement 01/2017), other (Right nephrostomy tube placement 01/2017 with removal 02/2017) - Social History Smoking Status: Never smoker Smokeless Tobacco Status: No Alcohol use: none Drug use: none - Family History Father Family Member Ethnicity: Non- Living Status: Hx Family Cardiac Disorders: No Hx Family Respiratory Disorders: No Hx Family Cancer: Yes (Colon) Hx Family GI Disorders: No Hx Family Endocrine Disorder: Yes (Diabetes) Hx Family Neuromuscular Disorders: No Hx Family Neurologic Disorders: No Hx Family HEENT Disorders: No Hx Family Autoimmune Disorders: No Brother Family Member Ethnicity: Non- Living Status: Hx Family Cancer: Yes (Colon and lung) Mother Family Member Ethnicity: Non- Living Status: Sister Family Member Ethnicity: Non- Living Status: Still Living Hx Family Endocrine Disorder: Yes (DM) Medications and Allergies Insulin DETEMIR [Levemir] 30 unit SQ HS 30 Days [id number] 01/19/16 [Rx] Sertraline [Zoloft] 25 mg PO DAILY 04/13/16 [History] Insulin ASPART [Novolog Flexpen] 10 unit SQ TID 11/17/16 [History] Diltiazem CD (24hr) [Cardizem CD] 240 mg PO DAILY 12/15/16 [History] Lactobacillus Combination No.9 [Adult 50 + Probiotic] 1 cap PO DAILY 03/19/17 [ History] Ondansetron HCl [Zofran] 4 mg PO TID PRN 03/19/17 [History] Multivit-Min/FA/Lycopen/Lutein [Centrum Silver Men Tablet] 1 tab PO DAILY [History] Esomeprazole Magnesium [Nexium 24Hr] 20 mg PO DAILY 06/06/17 [History] 3 Allergy/AdvReac Type Severity Reaction Status Date / Time No Known Allergies Allergy Verified 06/06/17 22:29 Review of Systems - Constitutional chills, fever(s) - EENT Nose, mouth and throat: no dizziness - Cardiovascular no chest pain - Respiratory no dyspnea - Gastrointestinal no nausea, no vomiting - Genitourinary flank pain, no hematuria - Musculoskeletal no back pain - Integumentary no erythema, no rash - Neurological no weakness - Psychiatric no suicidal ideation - Hematologic/Lymphatic no easy bleeding - Allergic/Immunologic no wheezing Exam Initial Vital Signs Temp Pulse Resp BP Pulse Ox 99.4 F 111 20 171/93 93 06/06/17 19:47 06/06/17 19:47 06/06/17 19:47 06/06/17 19:47 06/06/17 19:47 - General physical appearance Present: well developed, well nourished, no distress - Eyes Absent: icteric - ENT Present: normal nares - Neck Present: trachea midline - Respiratory Present: normal respiratory effort - Cardiovascular Cardiovascular exam IM: RRR - Abdomen Abdomen: Present: soft (Bilateral nephrostomy tubes are in place with clear urine.) - Integumentary Present: no rash - Neurologic Present: normal coordination - Musculoskeletal Present: normal gait Urology Results - Labs 06/07/17 05:52 06/07/17 05:52 Abnormal lab results RBC 3.32 M/mcL (4.19-5.50) L 06/07/17 05:52 Hgb 9.9 g/dL (12.9-16.9) L 06/07/17 05:52 Hct 29.8 % (37.5-50.1) L 06/07/17 05:52 RDW 14.7 % (11.5-14.5) H 06/07/17 05:52 MPV 8.9 fL (9.4-12.4) L 06/07/17 05:52 PT 12.5 Seconds (9.4-12.1) H 06/07/17 05:52 Chloride 108 mEq/L (98-107) H 06/07/17 05:52 BUN 35 mg/dL (8-23) H 06/07/17 05:52 Creatinine 2.44 mg/dL (0.70-1.30) H 06/07/17 05:52 Est GFR ( Amer) 32 (> 60) L 06/07/17 05:52 Est GFR (Non-Af Amer) 27 (> 60) L 06/07/17 05:52 Glucose 204 mg/dL (70-105) H 06/07/17 05:52 Calculated Osmolality 302 (280-300) H 06/07/17 05:52 Calcium 8.5 mg/dL (8.6-10.3) L 06/07/17 05:52 AST 10 Units/L (13-39) L 06/06/17 20:23 Urine Clarity Cloudy (Clear) A 06/06/17 22:15 Urine Protein 100 mg/dL (Neg-Trace) H 06/06/17 22:15 Urine Blood Large (Negative) H 06/06/17 22:15 Ur Leukocyte Esterase Moderate (Negative) H 06/06/17 22:15 Urine Microscopic RBC TNTC per hpf (0-3) H 06/06/17 22:15 Urine Microscopic WBC TNTC per hpf (0-3) H 06/06/17 22:15 Ur Culture Indicated? YES (NO) A 06/06/17 22:15 Diabetes panel 06/07/17 Range/Units 05:52 Sodium 139 (136-145) mEq/L Potassium 3.7 (3.5-5.1) mEq/L Chloride 108 H (98-107) mEq/L Carbon Dioxide 23 (23-29) mEq/L BUN 35 H (8-23) mg/dL Creatinine 2.44 H (0.70-1.30) mg/dL Glucose 204 H (70-105) mg/dL Calcium 8.5 L (8.6-10.3) mg/dL Calcium panel 06/07/17 Range/Units 05:52 Calcium 8.5 L (8.6-10.3) mg/dL Phosphorus 3.5 (2.7-4.5) mg/dL Pituitary panel 06/07/17 Range/Units 05:52 Sodium 139 (136-145) mEq/L Potassium 3.7 (3.5-5.1) mEq/L Chloride 108 H (98-107) mEq/L Carbon Dioxide 23 (23-29) mEq/L BUN 35 H (8-23) mg/dL Creatinine 2.44 H (0.70-1.30) mg/dL Glucose 204 H (70-105) mg/dL Calcium 8.5 L (8.6-10.3) mg/dL Adrenal panel 06/07/17 Range/Units 05:52 Sodium 139 (136-145) mEq/L Potassium 3.7 (3.5-5.1) mEq/L Chloride 108 H (98-107) mEq/L Carbon Dioxide 23 (23-29) mEq/L BUN 35 H (8-23) mg/dL Creatinine 2.44 H (0.70-1.30) mg/dL Glucose 204 H (70-105) mg/dL Calcium 8.5 L (8.6-10.3) mg/dL All other labs normal. - Imaging CT scan - abdomen: report reviewed, image reviewed CT scan - pelvis: report reviewed, image reviewed Consult Discharge Plan - Plan Referrals: Saleem Ramirez DO [Primary Care Provider] -
[2017-06-07] MEDS: Diltiazem CD (24hr) 240 MG CAPSULE PO SCH (09:32)
--- NOTE | 2017-06-07 10:33 | Event Note ---
Date of Encounter: 06/07/17 Time of Encounter: 10:31 Patient is new to me I did review records. Denies any pain or discomfort at this time. nephrostomy tubes are draining, awaiting to go to IR for replacement. Hemodynamically stable at this time He has been seen by urology will cont with recommendations
--- NOTE | 2017-06-07 14:13 | IR Procedure Note ---
Date of procedure: 06/07/17 Consent Obtained: Verbal consent Timeout: Correct patient and procedure verified, Correct site verified, Time out performed, Skin prep completed Indications: nephrostomy tube, infection Procedure Performed: bilateral nephrostomy tube exchange Was there an office assistant present: No Site/Technique: bilateral Results/Findings: adequate exchange Estimated blood loss (cc): 0 Complications: None; Tolerated procedure well Post Procedure Treatment Plan: dc to floor Specimen: none
[2017-06-07] MEDS: OXYCODONE Oral CONC 10 MG/0.5 ML ORAL.SYG SL PRN (21:59)
[2017-06-07] MEDS: Fluconazole 200 MG/100 ML 200 MG/100 ML BAG IVPB SCH (23:26)
[2017-06-08] MEDS ORDERED: Acetaminophen 325 MG TABLET PO PRN
[2017-06-08] MEDS: Ondansetron 4 MG/2 ML VIAL IVP PRN ×2 (03:49→22:04)
[2017-06-08 05:26] LABS: Basophils % 0.3 %; Eosinophils % 1.3 %; Hematocrit 32.1 % (37.5-50.1); Hemoglobin 10.6 g/dL (12.9-16.9); Immature Granulocytes % 1.1 % (0-4); Mean Corpuscular Hemoglobin 30.1 pg (28.0-33.3); Mean Corpuscular Volume 91.2 fL (83.0-100.0); Mean Platelet Volume 10.2 fL (9.4-12.4); Monocytes % 7.9 %; Platelet Count 271 K/mcL (140-400); Red Blood Count 3.52 M/mcL (4.19-5.50); Red Cell Distribution Width 14.3 % (11.5-14.5); Segmented Neutrophils % 81.4 %
[2017-06-08 05:27] LABS: Eosinophils # 0.1 K/mcL (0.0-0.6); Lymphocytes # 0.8 K/mcL (0.6-4.6); Monocytes # 0.8 K/mcL (0.0-1.3); Neutrophils # 7.7 K/mcL (1.6-8.9); Nucleated Red Blood Cells 0.2 /100 WBC (0)
[2017-06-08 06:53] LABS: Calcium 8.4 mg/dL (8.6-10.3); Potassium 3.9 mEq/L (3.5-5.1)
[2017-06-08] MEDS: Insulin LISPRO 300 UNITS/3 ML VIAL SQ SCH ×6 (09:09→22:02)
[2017-06-08] MEDS: Diltiazem CD (24hr) 240 MG CAPSULE PO SCH (09:10)
[2017-06-08] MEDS: OXYCODONE Oral CONC 10 MG/0.5 ML ORAL.SYG SL PRN ×3 (09:13→22:04)
--- NOTE | 2017-06-08 20:17 | Internal Med Progress Note ---
Date of Encounter: 06/08/17 Time of Encounter: 12:00 - Assessment and plan (1) Pyelonephritis Current Visit: Yes Status: Acute Assessment and plan: 66-year-old male presents with acute bilateral pyelonephritis. Patient follows with Dr. Ibarra as an outpatient as he has had recurrent bouts of pyelonephritis secondary to complications of prostate TURP procedure and radiation. Patient has bilateral nephrostomy tubes- changed yesterday 2017 per IR -We will continue IV daptomycin- Urine culture with Gram positive cocci - discussed with [facility] in pharmacy concerning possible switch of ATB to Vancomycin- I requested that he speak with Dr Ibarra since he is familiar with patient and case prior to switching- It appears that DWAYNE of Vancomycin 2 on previous admission I will clarify ATB regime in AM -IV fluconazole at 200 mg IV every 24 hours (patient's creatinine clearance is less than 50). -Pain medication with SL oxycodone. -Follow-up urology recommendations. (2) Hypertension Current Visit: No Status: Chronic Assessment and plan: Stable at this time cont home [facility]. Qualifiers: Hypertension type: essential hypertension Qualified Code(s): I10 - Essential (primary) hypertension (3) Diabetes mellitus Current Visit: No Status: Chronic Assessment and plan: Accucheck AC/HS SSI and basal Qualifiers: Diabetes mellitus type: type 2 Diabetes mellitus program professional insulin use: with program professional use Diabetes mellitus complication status: with kidney complications Diabetes mellitus complication detail: with chronic kidney disease Chronic kidney disease stage: stage 3 (moderate) Qualified Code(s): E11.22 - Type 2 diabetes mellitus with diabetic chronic kidney disease; N18.3 - Chronic kidney disease, stage 3 (moderate); N18.3 - Chronic kidney disease, stage 3 (moderate); 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 we will cont to monitor Avoid nephrotoxins -Renally dosed fluconazole. monitor I/O (6) History of prostate cancer Current Visit: No Status: Chronic Assessment and plan: Patient underwent TURP and radiation in the fall of 2016. Follow up with oncology as out patient and consult as needed - Time Spent With Patient Total time spent is greater than 50% in coordination of care (as documented) at patient's floor/unit and/or counseling patient: - Subjective Interval history: Patient seen an examined at bedside Denies any pain or discomfort at this time, urostomy tubes are patent and draining - Constitutional Vitals: Temp Pulse Resp BP Pulse Ox 98.1 F 68 14 146/78 95 06/08/17 19:40 06/08/17 19:40 06/08/17 19:40 06/08/17 19:40 06/08/17 19:40 General appearance: Present: cooperative, A&O X 3, pleasant, no acute distress, answers questions appropriately - Head Head exam: Present: atraumatic, normocephalic - Eye Eye exam: Present: PERRL, conjuntiva pink, sclera anicteric Pupils: Present: PERRL - Neck Neck exam general surgery: Present: supple, trachea midline. Absent: lymphadenopathy - Respiratory Respiratory exam: Present: CTAB. Absent: accessory muscle use, rales, rhonchi, wheezes - Cardiovascular Cardiovascular exam: Present: RRR, +S1, +S2. Absent: diastolic murmur, gallop, rubs, systolic murmur - GI/Abdominal GI/Abdominal exam: Present: normal bowel sounds, soft, no peritoneal signs. Absent: distended, tenderness - Extremities Exam Extremities exam: Present: warm, radial pulses palpable and symmetrical. Absent : calf tenderness, cyanotic, pedal edema - Neurological Exam Neurological exam: Present: CN II-XII intact, oriented X3, no focal deficits. Absent: pronater drift, facial droop, speech deficit - Skin Skin exam: Present: dry, intact Internal Medicine: Result - Labs CBC & Chem 7: 06/08/17 04:54 06/08/17 06:14 Labs: Short CBC 06/08/17 Range/Units 04:54 WBC 9.5 (4.3-11.1) K/mcL Hgb 10.6 L (12.9-16.9) g/dL Hct 32.1 L (37.5-50.1) % Plt Count 271 (140-400) K/mcL Neutrophils # 7.7 (1.6-8.9) K/mcL BMP 06/08/17 06:14 Sodium 137 Potassium 3.9 Chloride 108 H Carbon Dioxide 21 L BUN 30 H Creatinine 2.62 H Glucose 210 H Calcium 8.4 L - ABG Interpretation ABG results: PT/INR, D-dimer PT 12.5 Seconds (9.4-12.1) H 06/07/17 05:52 - VTE Documentation of Mechanical Device: Intermittent pneumatic compression device Consult Discharge Plan - Plan Referrals: Saleem Ramirez DO [Primary Care Provider] -
[2017-06-08] MEDS: Insulin DETEMIR 100 UNIT/ML X5UNITS SQ SCH (22:03)
[2017-06-08] MEDS: Fluconazole 200 MG/100 ML 200 MG/100 ML BAG IVPB SCH (22:53)
[2017-06-08] MEDS: SODIUM CHLORIDE 0.9% IVPB SCH (22:54)
[2017-06-08] MEDS: DAPTOMYCIN IVPB SCH (22:54)
[2017-06-09 05:21] LABS: Basophils % 0.6 %; Eosinophils # 0.4 K/mcL (0.0-0.6); Eosinophils % 7.8 %; Hematocrit 30.5 % (37.5-50.1); Hemoglobin 9.9 g/dL (12.9-16.9); Immature Granulocytes % 0.8 % (0-4); Lymphocytes # 0.9 K/mcL (0.6-4.6); Lymphocytes % 16.6 %; Mean Corpuscular HGB Conc 32.5 g/dL (31.6-35.5); Mean Corpuscular Volume 92.4 fL (83.0-100.0); Mean Platelet Volume 9.1 fL (9.4-12.4); Monocytes # 0.5 K/mcL (0.0-1.3); Monocytes % 8.8 %; Neutrophils # 3.4 K/mcL (1.6-8.9); Platelet Count 333 K/mcL (140-400); Red Cell Distribution Width 14.2 % (11.5-14.5); Segmented Neutrophils % 65.4 %
[2017-06-09 05:38] LABS: Calcium 8.6 mg/dL (8.6-10.3)
[2017-06-09] MEDS: Ondansetron 4 MG/2 ML VIAL IVP PRN ×2 (05:57→23:04)
--- NOTE | 2017-06-09 07:39 | Urology Progress Note ---
Date of Encounter: 06/09/17 Time of Encounter: 07:38 - Assessment and Plan (1) Pyelonephritis Current Visit: Yes Status: Acute Assessment and plan: Improving. Await final urine culture results. Continue IV antibiotic. (2) Prostate cancer Current Visit: No Status: Acute Assessment and plan: Prostate cancer is stable on androgen deprivation therapy. We will follow along. Progress Note Narrative: Doing well today. No fevers overnight. Urine culture is growing out gram- positive cocci. Objective Initial Vital Signs Temp Pulse Resp BP Pulse Ox 99.4 F 111 20 171/93 93 06/06/17 19:47 06/06/17 19:47 06/06/17 19:47 06/06/17 19:47 06/06/17 19:47 - General physical appearance Present: well developed, well nourished, no distress - Respiratory Present: normal respiratory effort - Abdomen Present: soft (Nephrostomies in place with clear urine.) - Labs 06/09/17 04:38 06/09/17 04:38 Diabetes panel 06/09/17 Range/Units 04:38 Sodium 138 (136-145) mEq/L Potassium 4.0 (3.5-5.1) mEq/L Chloride 107 (98-107) mEq/L Carbon Dioxide 22 L (23-29) mEq/L BUN 34 H (8-23) mg/dL Creatinine 2.57 H (0.70-1.30) mg/dL Glucose 189 H (70-105) mg/dL Calcium 8.6 (8.6-10.3) mg/dL Calcium panel 06/09/17 Range/Units 04:38 Calcium 8.6 (8.6-10.3) mg/dL Pituitary panel 06/09/17 Range/Units 04:38 Sodium 138 (136-145) mEq/L Potassium 4.0 (3.5-5.1) mEq/L Chloride 107 (98-107) mEq/L Carbon Dioxide 22 L (23-29) mEq/L BUN 34 H (8-23) mg/dL Creatinine 2.57 H (0.70-1.30) mg/dL Glucose 189 H (70-105) mg/dL Calcium 8.6 (8.6-10.3) mg/dL Adrenal panel 06/09/17 Range/Units 04:38 Sodium 138 (136-145) mEq/L Potassium 4.0 (3.5-5.1) mEq/L Chloride 107 (98-107) mEq/L Carbon Dioxide 22 L (23-29) mEq/L BUN 34 H (8-23) mg/dL Creatinine 2.57 H (0.70-1.30) mg/dL Glucose 189 H (70-105) mg/dL Calcium 8.6 (8.6-10.3) mg/dL - VTE Documentation of Mechanical Device: Intermittent pneumatic compression device Consult Discharge Plan - Plan Referrals: Saleem Ramirez DO [Primary Care Provider] -
--- NOTE | 2017-06-09 07:41 | Urology Progress Note ---
Date of Encounter: 06/08/17 Time of Encounter: 07:25 - Assessment and Plan (1) Pyelonephritis Current Visit: Yes Status: Acute Assessment and plan: Nephrostomy tubes are changed yesterday. Await final culture results. We will continue to follow along. (2) Prostate cancer Current Visit: No Status: Acute Progress Note Narrative: Delayed entry note: The nephrostomy tubes were changed out yesterday. He is doing well. Urine is draining clear. He is ambulating well. Objective Initial Vital Signs Temp Pulse Resp BP Pulse Ox 99.4 F 111 20 171/93 93 06/06/17 19:47 06/06/17 19:47 06/06/17 19:47 06/06/17 19:47 06/06/17 19:47 - General physical appearance Present: well developed, well nourished, no distress - Respiratory Present: normal respiratory effort - Abdomen Present: soft (Urine is clear from both nephrostomy tubes.) - Labs 06/09/17 04:38 06/09/17 04:38 Diabetes panel 06/09/17 Range/Units 04:38 Sodium 138 (136-145) mEq/L Potassium 4.0 (3.5-5.1) mEq/L Chloride 107 (98-107) mEq/L Carbon Dioxide 22 L (23-29) mEq/L BUN 34 H (8-23) mg/dL Creatinine 2.57 H (0.70-1.30) mg/dL Glucose 189 H (70-105) mg/dL Calcium 8.6 (8.6-10.3) mg/dL Calcium panel 06/09/17 Range/Units 04:38 Calcium 8.6 (8.6-10.3) mg/dL Pituitary panel 06/09/17 Range/Units 04:38 Sodium 138 (136-145) mEq/L Potassium 4.0 (3.5-5.1) mEq/L Chloride 107 (98-107) mEq/L Carbon Dioxide 22 L (23-29) mEq/L BUN 34 H (8-23) mg/dL Creatinine 2.57 H (0.70-1.30) mg/dL Glucose 189 H (70-105) mg/dL Calcium 8.6 (8.6-10.3) mg/dL Adrenal panel 06/09/17 Range/Units 04:38 Sodium 138 (136-145) mEq/L Potassium 4.0 (3.5-5.1) mEq/L Chloride 107 (98-107) mEq/L Carbon Dioxide 22 L (23-29) mEq/L BUN 34 H (8-23) mg/dL Creatinine 2.57 H (0.70-1.30) mg/dL Glucose 189 H (70-105) mg/dL Calcium 8.6 (8.6-10.3) mg/dL - VTE Documentation of Mechanical Device: Intermittent pneumatic compression device Consult Discharge Plan - Plan Referrals: Saleem Ramirez DO [Primary Care Provider] -
--- NOTE | 2017-06-09 07:42 | Internal Med Progress Note ---
Date of Encounter: 06/09/17 Time of Encounter: 07:40 - Assessment and plan (1) Pyelonephritis Current Visit: Yes Status: Acute Assessment and plan: 66-year-old male presents with acute bilateral pyelonephritis. Patient follows with Dr. Ibarra as an outpatient as he has had recurrent bouts of pyelonephritis secondary to complications of prostate TURP procedure and radiation. Patient has bilateral nephrostomy tubes- changed yesterday 2017 per IR -We will continue IV daptomycin- Urine culture with Gram positive cocci - Sensitivity back with entercoccus fecalis - discussed with [facility]- sensitive to ampicillin- will start on ampicillin 1gm every 6 hrs -IV fluconazole- DC -Pain medication with SL oxycodone. -Follow-up urology recommendations. (2) Hypertension Current Visit: No Status: Chronic Assessment and plan: Stable at this time cont home Cardizem. 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 insulin use: with terminal block assembler use Diabetes mellitus complication status: with kidney complications Diabetes mellitus complication detail: with chronic kidney disease Chronic kidney disease stage: stage 3 (moderate) Qualified Code(s): E11.22 - Type 2 diabetes mellitus with diabetic chronic kidney disease; N18.3 - Chronic kidney disease, stage 3 (moderate); N18.3 - Chronic kidney disease, stage 3 (moderate); Z79.4 - USP (current) use of insulin; Z79.4 - USP (current) use of insulin; 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 2.57 today we will cont to monitor Avoid nephrotoxins Renal dose ATB monitor I/O (6) History of prostate cancer Current Visit: No Status: Chronic Assessment and plan: Patient underwent TURP and radiation in the fall of 2016. Follow up with oncology as out patient and consult as needed - Time Spent With Patient Total time spent is greater than 50% in coordination of care (as documented) at patient's floor/unit and/or counseling patient: - Subjective Interval history: Patient seen an examined at bedside Denies any pain or discomfort at this time. Nephrostomy tubes are patent and draining clear yellow urine - Constitutional Vitals: Temp Pulse Resp BP Pulse Ox 98.0 F 63 16 128/75 94 06/09/17 03:37 06/09/17 03:37 06/09/17 03:37 06/09/17 03:37 06/09/17 03:37 General appearance: Present: cooperative, A&O X 3, pleasant, no acute distress, answers questions appropriately Internal Medicine: Result - Labs CBC & Chem 7: 06/09/17 04:38 06/09/17 04:38 Labs: Short CBC 06/09/17 Range/Units 04:38 WBC 5.2 (4.3-11.1) K/mcL Hgb 9.9 L (12.9-16.9) g/dL Hct 30.5 L (37.5-50.1) % Plt Count 333 (140-400) K/mcL Neutrophils # 3.4 (1.6-8.9) K/mcL BMP 06/09/17 04:38 Sodium 138 Potassium 4.0 Chloride 107 Carbon Dioxide 22 L BUN 34 H Creatinine 2.57 H Glucose 189 H Calcium 8.6 - ABG Interpretation ABG results: PT/INR, D-dimer PT 12.5 Seconds (9.4-12.1) H 06/07/17 05:52 - VTE Documentation of Mechanical Device: Intermittent pneumatic compression device Consult Discharge Plan - Plan Referrals: Saleem Ramirez DO [Primary Care Provider] - 06/14/17 1:30 pm Dominick Ibarra MD [Partnered Physician] -
[2017-06-09] MEDS: Diltiazem CD (24hr) 240 MG CAPSULE PO SCH (09:19)
[2017-06-09] MEDS: Insulin LISPRO 300 UNITS/3 ML VIAL SQ SCH ×7 (09:20→20:37)
[2017-06-09] MEDS: Ampicillin 1,000 MG in 0.9 % Sodium Chloride Mini Bag 100 ML IVPB SCH ×3 (12:10→23:07)
[2017-06-09] MEDS: Insulin DETEMIR 100 UNIT/ML X5UNITS SQ SCH (20:35)
[2017-06-09] MEDS: OXYCODONE Oral CONC 10 MG/0.5 ML ORAL.SYG SL PRN (23:39)
[2017-06-10] MEDS: Ampicillin 1,000 MG in 0.9 % Sodium Chloride Mini Bag 100 ML IVPB SCH (05:33)
[2017-06-10] MEDS: Insulin LISPRO 300 UNITS/3 ML VIAL SQ SCH ×2 (08:00→08:03)
[2017-06-10] MEDS: Diltiazem CD (24hr) 240 MG CAPSULE PO SCH (08:02)
[2017-06-10] MEDS: Ondansetron 4 MG/2 ML VIAL IVP PRN (08:02)
--- NOTE | 2017-06-10 08:05 | Urology Progress Note ---
Date of Encounter: 06/10/17 Time of Encounter: 08:04 - Assessment and Plan (1) Pyelonephritis Current Visit: Yes Status: Acute Assessment and plan: Infection is resolving. Switch to amoxicillin PO for 10 days. Okay to d/c home per my standpoint. (2) Prostate cancer Current Visit: No Status: Acute Progress Note Narrative: Doing well. Urine culture growing out enterococcus. Sensitive to ampicillin. Objective Initial Vital Signs Temp Pulse Resp BP Pulse Ox 99.4 F 111 20 171/93 93 06/06/17 19:47 06/06/17 19:47 06/06/17 19:47 06/06/17 19:47 06/06/17 19:47 - General physical appearance Present: well developed, well nourished, no distress - Respiratory Present: normal respiratory effort - Abdomen Present: soft (Urine is clear from both neph tubes.) - Labs 06/09/17 04:38 06/09/17 04:38 - VTE Documentation of Mechanical Device: Intermittent pneumatic compression device Consult Discharge Plan - Plan Referrals: Saleem Ramirez DO [Primary Care Provider] - 06/14/17 1:30 pm Dominick Ibarra MD [Partnered Physician] -
[2017-06-10 08:59] LABS: Basophils # 0.1 K/mcL (0.0-0.2); Eosinophils # 0.4 K/mcL (0.0-0.6); Eosinophils % 7.3 %; Hematocrit 33.4 % (37.5-50.1); Hemoglobin 10.9 g/dL (12.9-16.9); Immature Granulocytes % 0.8 % (0-4); Lymphocytes # 0.8 K/mcL (0.6-4.6); Lymphocytes % 17.1 %; Mean Corpuscular HGB Conc 32.6 g/dL (31.6-35.5); Mean Corpuscular Hemoglobin 29.7 pg (28.0-33.3); Mean Platelet Volume 8.8 fL (9.4-12.4); Monocytes # 0.4 K/mcL (0.0-1.3); Monocytes % 8.4 %; Neutrophils # 3.1 K/mcL (1.6-8.9); Platelet Count 382 K/mcL (140-400); Red Blood Count 3.67 M/mcL (4.19-5.50); Segmented Neutrophils % 65.4 %
[2017-06-10 09:28] LABS: Calcium 8.9 mg/dL (8.6-10.3); Potassium 4.2 mEq/L (3.5-5.1)
--- NOTE | 2017-06-10 11:23 | Discharge Summary ---
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 insulin use: with mcfp use Diabetes mellitus complication status: with kidney complications Diabetes mellitus complication detail: with chronic kidney disease Chronic kidney disease stage: stage 3 (moderate) Qualified Code(s): E11.22 - Type 2 diabetes mellitus with diabetic chronic kidney disease; N18.3 - Chronic kidney disease, stage 3 (moderate); N18.3 - Chronic kidney disease, stage 3 (moderate); Z79.4 - moth exterminator (current) use of insulin; Z79.4 - MCFP (current) use of insulin; Z79.4 - MCFP (current) use of insulin; Z79.4 - MCFP (current) use of insulin (4) Chronic kidney disease, stage III (moderate) Priority: Secondary Status: Acute (5) History of prostate cancer Priority: Secondary Status: Chronic Hospital course: Mr. Rivera is a 66 year old male past medical hx of prostrate cancer which is locally advanced, s/p TURP and radiation chronic and recurrent bouts of pyelonephritis resulting in bilateral nephrostomy tubes DM HLD HTN CKD. Who presented to [facility] on 06/06/2017 with complaints of abdominal pain fever nausea and vomiting . Output in his right nephrostomy bag became cloudy and dark. CT scan of abd demonstrated right sided perinephretic and periurteral strandring suggestive of pyelonephritis, left sided hydronephrosis perinephric stranding sugestive of pylonephritis. Urinalysis indicative of UTI Urology consulted and patient initiated on daptomycin and fluconazole based on previous microbiology susceptibilities. Nephrostomy tubes were changed per IR and he tolerated procedure well. Tubes draining clear yellow urine. Urine culture came back with enterococcus faecalis sensitive to ampicillin. Patient will follow up with urology and oncology as outpatient.Will discharge on amoxicillin for 10 days. I reviewed follow up and medications with patient who verbalized understanding. He is hemodynamically stable and ready for discharge - Time Spent with Patient Total time spent providing and/or coordinating discharge services: - Discharge Medications Prescriptions: Amoxicillin 500 mg PO Q12HR 10 Days #20 tablet Home Medications: Insulin DETEMIR [Levemir] 30 unit SQ HS 30 Days [id number] 01/19/16 [Rx] Sertraline [Zoloft] 25 mg PO DAILY 04/13/16 [History] Insulin ASPART [Novolog Flexpen] 10 unit SQ TID 11/17/16 [History] Diltiazem CD (24hr) [Cardizem CD] 240 mg PO DAILY 12/15/16 [History] Lactobacillus Combination No.9 [Adult 50 + Probiotic] 1 cap PO DAILY 03/19/17 [ History] Ondansetron HCl [Zofran] 8 mg PO DAILY PRN 03/19/17 [History] Multivit-Min/FA/Lycopen/Lutein [Centrum Silver Men Tablet] 1 tab PO DAILY [History] Esomeprazole Magnesium [Nexium 24Hr] 20 mg PO DAILY 06/06/17 [History] Docusate Sodium [Dok] 100 mg PO DAILY PRN 06/07/17 [History] Amoxicillin 500 mg PO Q12HR 10 Days #20 tablet 06/10/17 [Rx] Allergies/Adverse Reactions: 3 Allergy/AdvReac Type Severity Reaction Status Date / Time No Known Allergies Allergy Verified 06/06/17 22:29 Date of admission: 06/07/17 03:46 Primary care physician: Saleem Ramirez DO Consults: 06/07/17 03:51 Consult to Urology [CONS] Routine Consulting Provider: Urology [place] Reason for Consult: ED consult for pyelonephritis, h/o recurrent pyelonephritis, suspected infected nephrostomy tubes Call Completed: Yes 06/07/17 07:19 Consult to Interventional Radiology [CONS] Routine Consulting Provider: Radiology Interventional [place] Reason for Consult: Change neph tubes. Recent fever Call Completed: No Discharging clinician: Alciia Molina Anticipated date of discharge: 06/10/17 - Constitutional Vitals: Temp Pulse Resp BP Pulse Ox 97.9 F 68 16 143/89 95 06/10/17 07:36 06/10/17 07:36 06/10/17 07:36 06/10/17 07:36 06/10/17 07:36 General appearance: Present: cooperative, A&O X 3, pleasant, no acute distress, answers questions appropriately - Head Head exam: Present: atraumatic, normocephalic - Eye Eye exam: Present: PERRL, conjuntiva pink, sclera anicteric Pupils: Present: PERRL - Neck Neck exam general surgery: Present: supple, trachea midline. Absent: lymphadenopathy - Respiratory Respiratory exam: Present: CTAB. Absent: accessory muscle use, rales, rhonchi, wheezes - Cardiovascular Cardiovascular exam: Present: RRR, +S1, +S2. Absent: diastolic murmur, gallop, rubs, systolic murmur - GI/Abdominal GI/Abdominal exam: Present: normal bowel sounds, soft, no peritoneal signs. Absent: distended, tenderness - Extremities Exam Extremities exam: Present: warm, radial pulses palpable and symmetrical. Absent : calf tenderness, cyanotic, pedal edema - Back Exam Additional comments: nephrostomy tubes insertion site without redness swelling or drainage - Neurological Exam Neurological exam: Present: CN II-XII intact, oriented X3, no focal deficits. Absent: pronater drift, facial droop, speech deficit - Skin Skin exam: Present: dry, intact - Patient Status Disposition: Home, Self-Care Condition: Fair Functional capacity at discharge: independent ambulation Overall status at discharge: patient is back to baseline - Discharge Instructions Instructions: Urinary Tract Infection in Men (DC), Sepsis (DC) Follow Up With: Saleem Ramirez DO [Primary Care Provider] - 06/14/17 1:30 pm Dominick Ibarra MD [Partnered Physician] - Forms: ED Satisfaction Letter - Diet and Activity Activity: increase activity as tolerated Diet: advance to your usual diet - VTE Documentation of Mechanical Device: Intermittent pneumatic compression device
[2017-06-10 12:14] VITALS: BP 150/90
== END 2017-06-10 12:46 | disposition home or self-care (01) | DRG 690 ==
LOC: 3BNU 19:46 → EMEROO 19:46 → 3BNU 23:48
PROVIDERS: ADMIT Internal Medicine; ATTEND Internal Medicine

== ENCOUNTER 2017-07-29 18:01 | Inpatient (IN) ==
--- NOTE | 2017-07-29 18:35 | Emergency Department Note ---
Disposition Clinical Impression: Pyelonephritis Disposition: Admitted As Inpatient Condition: Fair Forms: ED Satisfaction Letter Time of Disposition: 19:48 Male Urogenital HPI - General Chief complaint: ED Urogenital-Male Stated complaint: urinary symptoms Time Seen by Provider: 07/29/17 18:05 Source: patient Mode of arrival: ambulatory Limitations: no limitations Nursing Notes Reviewed: Yes Vital Signs Reviewed: Yes - History of Present Illness HPI Narrative: 67yo male with past medical history of prostate cancer, bilateral nephrostomy tubes, Afib, hypertension, GERD, diabetes presented to [facility] complaining of increased weakness for 3 days. Additionally he has had fever 101, chills, hematuria, increased b/l CVA tenderness. He denies chest pain, shortness of breath, abdominal pain, change in vision. He reported that his b/l nephrostomy tubes get replaced every 3 months by IR and it is about time for them to be replaced. 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 His oncologist is Dr. Ceron. He reports a recurrent history of UTI and that his symptoms now are what he usually gets when he has one. He was last treated for a UTI in May that culture demonstrated sensitivity to everything. - Related Data Home Medications Medication Instructions Recorded Confirmed Sertraline [Zoloft] 25 mg PO DAILY 04/13/16 06/07/17 Insulin ASPART [Novolog Flexpen] 10 unit SQ TID 11/17/16 06/07/17 Diltiazem CD (24hr) [Cardizem CD] 240 mg PO DAILY 12/15/16 06/07/17 Lactobacillus Combination No.9 1 cap PO DAILY 03/19/17 06/07/17 [Adult 50 + Probiotic] Ondansetron HCl [Zofran] 8 mg PO DAILY PRN 03/19/17 06/07/17 Multivit-Min/FA/Lycopen/Lutein 1 tab PO DAILY 04/25/17 06/07/17 [Centrum Silver Men Tablet] Esomeprazole Magnesium [Nexium 20 mg PO DAILY 06/06/17 06/07/17 24Hr] Docusate Sodium [Dok] 100 mg PO DAILY PRN 06/07/17 06/07/17 Previous Rx's Medication Instructions Recorded Insulin DETEMIR [Levemir] 30 unit SQ HS 30 Days [id number] 01/19/16 Amoxicillin 500 mg PO Q12HR 10 Days #20 tablet 06/10/17 Allergies Allergy/AdvReac Type Severity Reaction Status Date / Time No Known Allergies Allergy Verified 06/06/17 22:29 All systems ED: reviewed and negative except as stated. Review of Systems: As Per HPI Constitutional: Reports: fever, chills, weakness Cardiovascular: Denies: chest pain Respiratory: Denies: cough, dyspnea Gastrointestinal: Reports: nausea. Denies: abdominal pain, vomiting, diarrhea, melena Genitourinary: Reports: hematuria (from nephrostomy tubes) Musculoskeletal: Reports: back pain Integumentary: Denies: rash Neurological: Denies: headache Hematological/Lymphatic: Denies: easy bleeding Past Medical History - Past Medical History Attestation: Yes The following information was validated with the patient. Source: patient Medical history: Reports: cancer, diabetes, hyperlipidemia, hypertension, other Surgical history: Reports: orthopedic, other (Left knee arthroplasty), ureteral stent (Bilateral ureteral stents Jan 2016, April 2016, August 2016; Bilateral metal stent placement 01/2017), other (Right nephrostomy tube placement 01/2017 with removal 02/2017) Psychiatric history: Reports: no psych history - Social History Smoking Status: Never smoker Smokeless Tobacco Status: No Alcohol use: Reports: none Drug use: Reports: none Physical Exam - General Limitations: no limitations General appearance: alert - Head Head exam: atraumatic, normocephalic - Eye Eye exam: Present: normal appearance - ENT ENT exam: normal exam, mucous membranes moist - Chest Chest inspection: Present: normal inspection - Respiratory Respiratory exam: Present: normal lung sounds bilaterally. Absent: wheezes - Cardiovascular Cardiovascular exam: Present: regular rate, normal rhythm. Absent: systolic murmur - Abdominal Exam Abdominal Exam: Present: soft, Non-Tender, normal bowel sounds. Absent: guarding - Extremities Exam Extremities exam: Present: normal inspection. Absent: tenderness - Back Exam Back exam: Present: normal inspection, CVA tenderness (R), CVA tenderness (L). Absent: rashes - Neurological Exam Neurological exam: Present: alert, oriented X3 - Psychiatric Psychiatric exam: Present: normal affect, normal mood - Skin Skin exam: Present: dry, intact Course Course Narrative: 67yo male with past Alen history of prostate cancer, bilateral nephrostomy tubes, hypertension, GERD, diabetes presented to [facility] complaining of increased weakness for 3 days. Additionally he has had fever 101, chills, hematuria, increased b/l CVA tenderness. He denies chest pain, shortness of breath, abdominal pain, change in vision. 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 His oncologist is Dr. Ceron. He reports a recurrent history of UTI and that his symptoms now are what he usually gets when he has one. He was last treated for a UTI in May that culture demonstrated sensitivity to everything. CBC, BMP, urinalysis, lactic acid were ordered. Likely UTI or pyelonephritis. On differential is nephrolithiasis as well. Vital Signs Temperature 98.3 F 07/29/17 18:02 Pulse Rate 98 07/29/17 18:02 Respiratory Rate 20 07/29/17 18:02 Blood Pressure 166/77 07/29/17 18:02 O2 Sat by Pulse Oximetry 96 07/29/17 18:02 Temperature 98.3 F 07/29/17 18:06 Pulse Rate 98 07/29/17 18:06 Respiratory Rate 20 07/29/17 18:06 Blood Pressure 166/77 07/29/17 18:06 O2 Sat by Pulse Oximetry 96 07/29/17 18:06 Oxygen Delivery Oxygen Delivery Room Air Urogenital-Male - MDM Narrative Medical decision making narrative: 67yo male with past medical history of prostate cancer, bilateral nephrostomy tubes, hypertension, afib, GERD, diabetes presented to [facility] complaining of increased weakness for 3 days. Additionally he has had fever 101, chills, hematuria, increased b/l CVA tenderness. He denies chest pain, shortness of breath, abdominal pain, change in vision. He reported that his b/l nephrostomy tubes get replaced every 3 months by IR and it is about time for them to be replaced. 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 He reports a recurrent history of UTI and that his symptoms now are what he usually gets when he has one. He was last treated for a UTI in May that culture demonstrated sensitivity to everything. I spoke with his oncologist is Dr. Ceron who suggested admission for IV antibiotics and consult to urology for replacement of his nephrostomy tubes. CBC, lactic acid unremarkable. BMP showed APOORVA with creatinine 2.81. Urinalysis showed leukocyte esterase and blood. Blood and urine cultures pending. Patient received iv zosyn. Urology was consulted and stated they do not replace nephrostomy tubes but IR can replace them on Monday. The patient and his were informed of plan and agreeable. Dr. Salinas accepted admission. - Differential Diagnosis Likely: urinary tract infection - Medical Records Medical records reviewed: Yes I reviewed the patient's medical records. - Lab Data Lab results reviewed: Yes I reviewed the patient's lab results.
[2017-07-29 19:02] LABS: Basophils % 0.3 %; Eosinophils # 0.1 K/mcL (0.0-0.6); Eosinophils % 1.1 %; Hematocrit 35.6 % (37.5-50.1); Immature Granulocytes % 0.5 % (0-4); Lymphocytes # 0.8 K/mcL (0.6-4.6); Lymphocytes % 8.9 %; Mean Corpuscular HGB Conc 33.7 g/dL (31.6-35.5); Mean Corpuscular Hemoglobin 30.9 pg (28.0-33.3); Mean Corpuscular Volume 91.8 fL (83.0-100.0); Mean Platelet Volume 9.1 fL (9.4-12.4); Monocytes # 0.6 K/mcL (0.0-1.3); Monocytes % 6.7 %; Neutrophils # 7.7 K/mcL (1.6-8.9); Platelet Count 351 K/mcL (140-400); Red Blood Count 3.88 M/mcL (4.19-5.50); Red Cell Distribution Width 13.4 % (11.5-14.5); Segmented Neutrophils % 82.5 %
[2017-07-29 19:21] LABS: Calcium 8.8 mg/dL (8.6-10.3); Potassium 4.2 mEq/L (3.5-5.1)
--- NOTE | 2017-07-29 19:32 | Emergency Department Note ---
Disposition Clinical Impression: Pyelonephritis Disposition: Admitted As Inpatient Condition: Fair Referrals: Saleem Ramirez DO [Primary Care Provider] - Forms: ED Satisfaction Letter General Adult HPI - General Chief complaint: ED Urogenital-Male Stated complaint: urinary symptoms Time Seen by Provider: 07/29/17 18:05 Source: patient Mode of arrival: ambulatory Limitations: no limitations - History of Present Illness Pain Scale: 4 - Related Data Home Medications Medication Instructions Recorded Confirmed Sertraline [Zoloft] 25 mg PO DAILY 04/13/16 06/07/17 Insulin ASPART [Novolog Flexpen] 10 unit SQ TID 11/17/16 06/07/17 Diltiazem CD (24hr) [Cardizem CD] 240 mg PO DAILY 12/15/16 06/07/17 Lactobacillus Combination No.9 1 cap PO DAILY 03/19/17 06/07/17 [Adult 50 + Probiotic] Ondansetron HCl [Zofran] 8 mg PO DAILY PRN 03/19/17 06/07/17 Multivit-Min/FA/Lycopen/Lutein 1 tab PO DAILY 04/25/17 06/07/17 [Centrum Silver Men Tablet] Esomeprazole Magnesium [Nexium 20 mg PO DAILY 06/06/17 06/07/17 24Hr] Docusate Sodium [Dok] 100 mg PO DAILY PRN 06/07/17 06/07/17 Previous Rx's Medication Instructions Recorded Insulin DETEMIR [Levemir] 30 unit SQ HS 30 Days [id number] 01/19/16 Amoxicillin 500 mg PO Q12HR 10 Days #20 tablet 06/10/17 Allergies Allergy/AdvReac Type Severity Reaction Status Date / Time No Known Allergies Allergy Verified 06/06/17 22:29 Past Medical History - Past Medical History Medical history: Reports: cancer, diabetes, hyperlipidemia, hypertension, other Surgical history: Reports: orthopedic, other (Left knee arthroplasty), ureteral stent (Bilateral ureteral stents Jan 2016, April 2016, August 2016; Bilateral metal stent placement 01/2017), other (Right nephrostomy tube placement 01/2017 with removal 02/2017) Psychiatric history: Reports: no psych history - Social History Smoking Status: Never smoker Smokeless Tobacco Status: No Alcohol use: Reports: none Drug use: Reports: none Physical Exam - General Limitations: no limitations General appearance: alert Course Vital Signs Temperature 98.3 F 07/29/17 18:02 Pulse Rate 98 07/29/17 18:02 Respiratory Rate 20 07/29/17 18:02 Blood Pressure 166/77 07/29/17 18:02 O2 Sat by Pulse Oximetry 96 07/29/17 18:02 Temperature 98.3 F 07/29/17 18:06 Pulse Rate 98 07/29/17 18:06 Respiratory Rate 20 07/29/17 18:06 Blood Pressure 166/77 07/29/17 18:06 O2 Sat by Pulse Oximetry 96 07/29/17 18:06 Oxygen Delivery Oxygen Delivery Room Air Medical Decision Making - Lab Data Result diagrams: 07/29/17 18:52 07/29/17 18:52 Lab Results 07/29/17 07/29/17 07/29/17 Range/Units 18:25 18:25 18:52 WBC 9.4 (4.3-11.1) K/mcL RBC 3.88 L (4.19-5.50) M/mcL Hgb 12.0 L (12.9-16.9) g/dL Hct 35.6 L (37.5-50.1) % MCV 91.8 (83.0-100.0) fL MCH 30.9 (28.0-33.3) pg MCHC 33.7 (31.6-35.5) g/dL RDW 13.4 (11.5-14.5) % Plt Count 351 (140-400) K/mcL MPV 9.1 L (9.4-12.4) fL Immature Gran % 0.5 (0-4) % Seg Neutrophils % 82.5 % Lymphocytes % 8.9 % Monocytes % 6.7 % Eosinophils % 1.1 % Basophils % 0.3 % Neutrophils # 7.7 (1.6-8.9) K/mcL Lymphocytes # 0.8 (0.6-4.6) K/mcL Monocytes # 0.6 (0.0-1.3) K/mcL Eosinophils # 0.1 (0.0-0.6) K/mcL Basophils # 0.0 (0.0-0.2) K/mcL Sodium (136-145) mEq/L Potassium (3.5-5.1) mEq/L Chloride (98-107) mEq/L Carbon Dioxide (23-29) mEq/L BUN (8-23) mg/dL Creatinine (0.70-1.30) mg/dL Est GFR ( Amer) (> 60) Est GFR (Non-Af Amer) (> 60) BUN/Creatinine Ratio (6-26) Glucose (70-105) mg/dL Calculated Osmolality (280-300) Lactic Acid (0.5-2.2) mmol/L Calcium (8.6-10.3) mg/dL Ur Specimen Adequacy See below A See below A Urine Color [place] Red A (Yellow) Urine Clarity Cloudy A Turbid A (Clear) Urine pH 7.5 6.0 (5.0-8.0) pH Units Ur Specific [place] 1.015 1.015 (1.010-1.025) Urine Protein >=300 H >=300 H (Neg-Trace) mg/dL Urine Glucose (UA) 100 H Normal (Normal) mg/dL Urine Ketones Negative Trace H (Negative) mg/dL Urine Blood Large H Large H (Negative) Urine Nitrite Positive A Negative (Negative) Urine Bilirubin Negative Negative (Negative) Urine Urobilinogen Normal Normal (Normal) mg/dL Ur Leukocyte Esterase Moderate H Large H (Negative) Ur Culture Indicated? YES A YES A (NO) 07/29/17 07/29/17 Range/Units 18:52 18:52 WBC (4.3-11.1) K/mcL RBC (4.19-5.50) M/mcL Hgb (12.9-16.9) g/dL Hct (37.5-50.1) % MCV (83.0-100.0) fL MCH (28.0-33.3) pg MCHC (31.6-35.5) g/dL RDW (11.5-14.5) % Plt Count (140-400) K/mcL MPV (9.4-12.4) fL Immature Gran % (0-4) % Seg Neutrophils % % Lymphocytes % % Monocytes % % Eosinophils % % Basophils % % Neutrophils # (1.6-8.9) K/mcL Lymphocytes # (0.6-4.6) K/mcL Monocytes # (0.0-1.3) K/mcL Eosinophils # (0.0-0.6) K/mcL Basophils # (0.0-0.2) K/mcL Sodium 136 (136-145) mEq/L Potassium 4.2 (3.5-5.1) mEq/L Chloride 106 (98-107) mEq/L Carbon Dioxide 21 L (23-29) mEq/L BUN 46 H (8-23) mg/dL Creatinine 2.81 H (0.70-1.30) mg/dL Est GFR ( Amer) 27 L (> 60) Est GFR (Non-Af Amer) 23 L (> 60) BUN/Creatinine Ratio 16 (6-26) Glucose 206 H (70-105) mg/dL Calculated Osmolality 300 (280-300) Lactic Acid 1.3 (0.5-2.2) mmol/L Calcium 8.8 (8.6-10.3) mg/dL Ur Specimen Adequacy Urine Color (Yellow) Urine Clarity (Clear) Urine pH (5.0-8.0) pH Units Ur Specific [place] (1.010-1.025) Urine Protein (Neg-Trace) mg/dL Urine Glucose (UA) (Normal) mg/dL Urine Ketones (Negative) mg/dL Urine Blood (Negative) Urine Nitrite (Negative) Urine Bilirubin (Negative) Urine Urobilinogen (Normal) mg/dL Ur Leukocyte Esterase (Negative) Ur Culture Indicated? (NO) Attestation Statement - Attestation Attestation: I examined this patient and my medical decision-making was reviewed with the Resident Physician. I agree with the documented findings, disposition and treatment plan as described except to the extent set forth below. I had face to face time with the patient. 67-year-old with a history of prostate cancer who currently has nephrostomy tubes due to obstruction of the distal renal system secondary to guarding related to radiation therapy. He noted today hematuria and fever with shaking chills. Physical exam the prostate be tubes are placed with a pinkish colored urine drainage. His of white count is normal his lactic acid is normal. Previous culture grew out enterococcus is sensitive to penicillin.
[2017-07-29 19:34] LABS: Bilirubin,Urine Negative (Negative); Blood,Urine Large (Negative); Clarity,Urine Cloudy (Clear); Glucose,Urine (UA) 100 mg/dL (Normal); Ketones,Urine Negative (Negative); Leukocyte Esterase,Urine Moderate (Negative); Nitrite,Urine Positive (Negative); PH,Urine 7.5 pH Units (5.0-8.0); Protein,Urine >=300 mg/dL (Neg-Trace); Specific Gravity,Urine 1.015 (1.010-1.025); Urobilinogen,Urine Normal (Normal)
[2017-07-29 19:36] LABS: Color,Urine Pink (Yellow)
[2017-07-29 19:38] LABS: Bilirubin,Urine Negative (Negative); Blood,Urine Large (Negative); Clarity,Urine Turbid (Clear); Color,Urine Red (Yellow); Glucose,Urine (UA) Normal (Normal); Ketones,Urine Trace mg/dL (Negative); Leukocyte Esterase,Urine Large (Negative); Nitrite,Urine Negative (Negative); Protein,Urine >=300 mg/dL (Neg-Trace); Specific Gravity,Urine 1.015 (1.010-1.025); Urobilinogen,Urine Normal (Normal)
[2017-07-29] MEDS ORDERED: Piperacillin/Tazobactam 3.375 GM in 0.9 % Sodium Chloride Mini Bag 100 ML IVPB ONE (19:44)
[2017-07-29] MEDS ORDERED: Naloxone 0.4 MG/ML INJ IVP PRN (21:05)
[2017-07-29] MEDS ORDERED: D5% in Water 1,000 ML IVC PRN (21:08)
[2017-07-29] MEDS ORDERED: Dextrose Gel 15 GM/37.5 ML TUBE PO PRN ×2 (21:08)
[2017-07-29] MEDS ORDERED: *HR* Dextrose 50 % in Water (Syg) 50 ML SYRINGE IVP PRN (21:08)
--- NOTE | 2017-07-29 21:11 | Internal Med History&Physical ---
Date of Encounter: 07/29/17 Time of Encounter: 21:11 Internal Medicine - H&P: HPI Chief complaint: fever/chills/flank pain History of present illness: Mr. Rivera is a 67 year old male with a history of prostate cancer, bilateral nephrostomy tube, hypertension, DMII and a history of recurrent complicated UTI who presents with acute pyelonephritis. Patient is under care of oncology and was diagnosed with prostate cancer determined to be locally invasive and had completed local radiation therapy/ADT to prostate in October 2016. His oncologic history has been complicated by post renal obstruction status post bilateral nephrostomy tubes at the most recent times since approximately March of this year. In terms of his symptoms he initially developed a prodromal symptoms of a UTI approximately Monday when he saw Dr. Ibarra in the clinic. He describes typical prodromal symptoms of burping, belching that is associated with fatigue and decreased energy levels prior to his UTI episodes. This morning he developed fever, chills, rigors, MAXIMUM TEMPERATURE of 101 that associated with nausea and bilateral flank pain. Right flank pain more than left. Past Med Surg Social Fam HX - Past Medical History Medical history: cancer, diabetes, hyperlipidemia, hypertension, other Additional medical history: prostate (last radiation 2016) Psychiatric history: no psych history - Past Surgical History Surgical History: orthopedic, other (Left knee arthroplasty), ureteral stent ( Bilateral ureteral stents Jan 2016, April 2016, August 2016; Bilateral metal stent placement 01/2017), other (Right nephrostomy tube placement 01/2017 with removal 02/2017) Additional surgical history: left knee replacement, carpal tunnel surgery, bilateral nephro tube - Social History Smoking Status: Never smoker Smokeless Tobacco Status: No Alcohol use: none Drug use: none - Family History Father Family Member Ethnicity: Non- Living Status: Hx Family Cardiac Disorders: No Hx Family Respiratory Disorders: No Hx Family Cancer: Yes (Colon) Hx Family GI Disorders: No Hx Family Endocrine Disorder: Yes (Diabetes) Hx Family Neuromuscular Disorders: No Hx Family Neurologic Disorders: No Hx Family HEENT Disorders: No Hx Family Autoimmune Disorders: No Brother Family Member Ethnicity: Non- Living Status: Hx Family Cancer: Yes (Colon and lung) Mother Family Member Ethnicity: Non- Living Status: Sister Family Member Ethnicity: Non- Living Status: Still Living Hx Family Endocrine Disorder: Yes (DM) Internal Medicine - H&P: Meds Insulin DETEMIR [Levemir] 30 unit SQ HS 30 Days [id number] 01/19/16 [Rx] Sertraline [Zoloft] 25 mg PO DAILY 04/13/16 [History] Insulin ASPART [Novolog Flexpen] 10 unit SQ TID 11/17/16 [History] Diltiazem CD (24hr) [Cardizem CD] 240 mg PO DAILY 12/15/16 [History] Lactobacillus Combination No.9 [Adult 50 + Probiotic] 1 cap PO DAILY 03/19/17 [ History] Ondansetron HCl [Zofran] 8 mg PO DAILY PRN 03/19/17 [History] Multivit-Min/FA/Lycopen/Lutein [Centrum Silver Men Tablet] 1 tab PO DAILY [History] Esomeprazole Magnesium [Nexium 24Hr] 20 mg PO DAILY 06/06/17 [History] Docusate Sodium [Dok] 100 mg PO DAILY PRN 06/07/17 [History] Amoxicillin 500 mg PO Q12HR 10 Days #20 tablet 06/10/17 [Rx] 3 Allergy/AdvReac Type Severity Reaction Status Date / Time No Known Allergies Allergy Verified 06/06/17 22:29 All Systems PM: A 10-system review of systems was performed and is negative for pertinent findings except as documented above in the HPI. Review of systems: ROS 14 point review of systems reviewed as best as possible given presentation. Pertinent positive or negative as per HPI or otherwise reviewed as negative - Constitutional Vitals: Temp Pulse Resp BP Pulse Ox 98.3 F 88 16 138/83 97 07/29/17 18:06 07/29/17 20:05 07/29/17 20:05 07/29/17 20:05 07/29/17 20:05 Exam: General - AAO x 3 Psych - Appropriate affect/speech. No agitation Eyes - MATHEW. Eye lids intact. No scleral icterus Neuro - No gross peripheral or central neuro deficits on inspection Heart - Sinus. RRR. S1 and S2 present. No added HS/murmurs appreciated. No elevated JVD appreciated. Lung - Adequate air entry b/l, No crackles/wheezes appreciated GI - Soft, non-tender. No hepatosplenomegaly/ascites. BS+ - bilateral CVA tenderness on palpation Skin - Intact. No rash/petechiae/ecchymosis. Trace bilateral lower extremity edema Internal Med - H&P Results - Labs CBC & Chem 7: 07/29/17 18:52 07/29/17 18:52 - Assessment and plan (1) Pyelonephritis Current Visit: Yes Status: Acute Assessment and plan: based on prior E.faecalis, stap epi - resistant , will empirically treat with IV ampicillin and IV doxy for now (in attempt to spare dapto, zyvox or vanco) hx of arline - suspect colonization instead of true infection IVF Pending urine cx. Blood cx also obtained in the ED (2) Chronic kidney disease, stage III (moderate) Current Visit: No Status: Acute Assessment and plan: monitor for now (3) Prostate cancer Current Visit: No Status: Acute Assessment and plan: outpatient f/u with oncology, urol (4) Diabetes mellitus Current Visit: No Status: Chronic Assessment and plan: continue insulin add ISS Qualifiers: Diabetes mellitus type: type 2 Diabetes mellitus chcf insulin use: with trip rider use Diabetes mellitus complication status: with kidney complications Diabetes mellitus complication detail: with chronic kidney disease Chronic kidney disease stage: stage 3 (moderate) Qualified Code(s): E11.22 - Type 2 diabetes mellitus with diabetic chronic kidney disease; N18.3 - Chronic kidney disease, stage 3 (moderate); Z79.4 - shelter (current) use of insulin (5) HTN (hypertension) Current Visit: No Status: Chronic Assessment and plan: continue med Qualifiers: Hypertension type: essential hypertension Qualified Code(s): I10 - Essential (primary) hypertension - Time Spent With Patient Total time spent is greater than 50% in coordination of care (as documented) at patient's floor/unit and/or counseling patient:
[2017-07-29] MEDS: Ringers Solution, Lactated 1,000 ML IVC SCH (23:09)
[2017-07-29] MEDS: *HR* Heparin 5,000 UNIT/ML VIAL SQ SCH (23:09)
[2017-07-29] MEDS: Insulin DETEMIR 100 UNIT/ML X5UNITS SQ SCH (23:34)
[2017-07-29] MEDS: Ondansetron ODT 4 MG TAB.RAPDIS PO PRN (23:43)
[2017-07-30] MEDS: Doxycycline 100 MG in 0.9 % Sodium Chloride Mini Bag 100 ML IVPB SCH ×2 (00:36→13:32)
[2017-07-30] MEDS ORDERED: SODIUM CHLORIDE MINI 0.9% IVPB SCH (05:00)
[2017-07-30] MEDS ORDERED: AMPICILLIN IVPB SCH (05:00)
[2017-07-30 05:10] LABS: Calcium 8.3 mg/dL (8.6-10.3)
[2017-07-30] MEDS: *HR* Heparin 5,000 UNIT/ML VIAL SQ SCH ×2 (05:14→18:26)
--- NOTE | 2017-07-30 08:33 | Oncology Inp Consult Note ---
Date of Encounter: 07/30/17 Time of Encounter: 09:00 Assessment and Plan (1) Pyelonephritis Status: Acute Assessment and plan: UTI/possible pyelonephritis-on broad-spectrum antibiotics, prior history of staph and arline UTI. Management per hospitalist team. His fevers are under control. Likely will need nephrostomy tube changed next week. Prostate cancer-locally advanced, unresectable, [id number], stage IV salvador 4+5 score with initial PSA 59, down to 1, Testosterone at 17. Completed EBRT (definitive) without interruption 10/30 seen on f/u 11/16/16. PSA down to 0.[address] [facility] in 03/02 s/p lupron in , started in 03/01 (18mo-2yrs) Anemia renal insuff, takes aranesp. s/p iron ferritin was at 400s Mild anemi alikely from infection s/p rt side replacement in 05/31 Outpt f/u for continued Rx of prostate cancer Paln d/w patient and - Data of Consult Requesting Physician: Paolo Salinas MD Primary Care Provider: Saleem Ramirez DO - Consult Narrative Reason for consult: UTI, prostate cancer History of present illness: Mr. Rivera is a 67 year old male Faustino Rivera is a 66 year old male with a diagnosis of prostate cancer--[id number] salvador 4+5 (inv of bladder). and med hx significant for diabetes mellitus, hypertension, history of renal insufficiency, urinary retention rec UTI initially had bx of prostate that showed Chesterfield's 9 prostatic adenocarcinoma, lymphovascular invasion and perineural invasion present. No distant disease in scans. He was seen by Dr Murrieta, Urologic surgery at [facility]-a robotic prostatectomy was planned. He underwent a cystoscopy that showed his prostate cancer causing obstruction invading bladder neck, extending to trigone and ureteral orifices. Surgery was not completed as he would potentially need radical surgery with cystectomy and a TURP/jacky stents were placed to relieve obstruction. PSA 55--02/18/16 to 26 03/14/16. PSA 17 04/29, testosterone low at 17 He underwent lupron injections with nice PSA response. He was sent for another opinion by rad onc, pt was seen at [facility] and underwent EBRT on 11/02/[address] Trejo. Dosing schedule 4600/400 cGy+1400cGy+1800cGy Patient has had radiation reactions, side effects with discomfort, lower extremity joint pains, anorexia nausea. He developed anemia, renal insufficiency, seen nephrology managed with Aranesp injections. PSA-- Hospitalized for flu in 04/02 s/p jacky nephrostomy tubes 04/02, status post right nephrostomy tube change in May 2017 when he had pyelonephritis, staphylococcus and Arline in urin Rx with daptomycin and fluconozole. --- Patient has been feeling ill since Monday. He developed high fevers, started feeling weak and was brought to the emergency room by his . His white blood cell count is normal. He has chronic renal insufficiency, mild anemia. Past Med Surg Social Fam HX - Past Medical History Medical history: cancer, diabetes, hyperlipidemia, hypertension, other Additional medical history: prostate (last radiation 2016) Psychiatric history: depression - Past Surgical History Surgical History: orthopedic, other, ureteral stent, other Additional surgical history: left knee replacement, carpal tunnel surgery, bilateral nephro tube - Social History Smoking Status: Never smoker Smokeless Tobacco Status: No Alcohol use: none Drug use: none - Family History Father Family Member Ethnicity: Non- Living Status: Hx Family Cardiac Disorders: No Hx Family Respiratory Disorders: No Hx Family Cancer: Yes (Colon) Hx Family GI Disorders: No Hx Family Endocrine Disorder: Yes (Diabetes) Hx Family Neuromuscular Disorders: No Hx Family Neurologic Disorders: No Hx Family HEENT Disorders: No Hx Family Autoimmune Disorders: No Brother Family Member Ethnicity: Non- Living Status: Hx Family Cancer: Yes (Colon and lung) Mother Family Member Ethnicity: Non- Living Status: Sister Family Member Ethnicity: Non- Living Status: Still Living Hx Family Endocrine Disorder: Yes (DM) Medications and Allergies Insulin DETEMIR [Levemir] 30 unit SQ HS 30 Days [id number] 01/19/16 [Rx] Sertraline [Zoloft] 25 mg PO DAILY 04/13/16 [History] Insulin ASPART [Novolog Flexpen] 10 unit SQ TID 11/17/16 [History] Diltiazem CD (24hr) [Cardizem CD] 240 mg PO DAILY 12/15/16 [History] Lactobacillus Combination No.9 [Adult 50 + Probiotic] 1 cap PO DAILY 03/19/17 [ History] Ondansetron HCl [Zofran] 8 mg PO DAILY PRN 03/19/17 [History] Multivit-Min/FA/Lycopen/Lutein [Centrum Silver Men Tablet] 1 tab PO DAILY [History] Esomeprazole Magnesium [Nexium 24Hr] 20 mg PO DAILY 06/06/17 [History] Docusate Sodium [Dok] 100 mg PO DAILY PRN 06/07/17 [History] Amoxicillin 500 mg PO Q12HR 10 Days #20 tablet 06/10/17 [Rx] 3 Allergy/AdvReac Type Severity Reaction Status Date / Time No Known Allergies Allergy Verified 06/06/17 22:29 Review of systems: as in HPI Oncology - Exam - Constitutional Vitals: Temp Pulse Resp BP Pulse Ox 99.3 F 70 16 138/82 95 07/30/17 07:39 07/30/17 07:39 07/30/17 07:39 07/30/17 07:39 07/30/17 07:39 Exam: General: Alert and oriented, well appearing. Mental Status: Affect appropriate for circumstances HEENT: Sclerae anicteric. No mucositis or thrush. Skin: No rashes or petechiae. Lymph nodes: No cervical, supraclavicular, axillary adenopathy. Lungs: Clear to auscultation and percussion bilaterally. Cardiovascular: Regular rate and rhythm. Abdomen: Soft, nontender; no organomegaly. Extremities: Trace jacky edema. No calf swelling or tenderness. Neurologic: Alert, cranial nerves II-XII intact; no focal weakness Oncology - Results Labs: 3 07/30/17 07/30/17 07/29/17 04:22 04:22 22:06 Sodium 137 Potassium 4.0 Chloride 107 Carbon Dioxide 23 BUN 43 H Creatinine 2.75 H Est GFR ( Amer) 28 L Est GFR (Non-Af Amer) 23 L BUN/Creatinine Ratio 16 Glucose 309 H POC Glucose 125 H Calculated Osmolality 307 H Lactic Acid 1.3 Calcium 8.3 L Consult Discharge Plan - Plan Referrals: Saleem Ramirez DO [Primary Care Provider] -
[2017-07-30] MEDS ORDERED: NON-FORMULARY MEDICATION 1 EACH EACH (Insulin Aspart [Novolog Flexpen] 10 UNIT) SQ SCH (09:00)
--- NOTE | 2017-07-30 09:31 | Urology - Consult Note ---
Date of Encounter: 07/30/17 Time of Encounter: 09:29 - Assessment and Plan (1) Ureteral obstruction Current Visit: Yes Status: Acute Assessment and plan: 67-year-old man bilateral ureteral obstruction and indwelling nephrostomy tubes. I will request to have interventional radiology changes nephrostomy tubes early next week. We will check an INR tomorrow. (2) Prostate cancer Current Visit: No Status: Acute Assessment and plan: 67-year-old man with locally advanced prostate cancer. Appreciate medical oncology support. We will continue androgen deprivation for now. PSA has been stable. (3) UTI (urinary tract infection) Current Visit: No Status: Acute Assessment and plan: Concern for enterococcus in his urine as well as Emmanuelle previously. He is currently on ampicillin and doxycycline. We will await the results of the urine culture. Appreciate hospitalist support. Qualifiers: Urinary tract infection type: acute cystitis Hematuria presence: without hematuria Qualified Code(s): N30.00 - Acute cystitis without hematuria Urology CN:HPI Consult date: 07/30/17 Reason for consult Urology: Other (UTI, bilateral ureteral obstruction.) History of present illness: 67-year-old man well-known to the urology service returns with a febrile urinary tract infection. He has a history of prostate cancer which is locally advanced. He is status post TURP. He has bilateral ureteral obstruction. He previously had stents, but they failed. Nephrostomy tubes were then placed on 03/22/2017. He had them last changed on 06/07/2017. He was seen in the office earlier this week. He reports having some weakness, nausea, and belching. He eventually developed bilateral hematuria and had a temperature to 101 degrees yesterday. He came to the emergency room and was admitted for a urinary tract infection. He is feeling okay today. He does report that his blood sugars have been running somewhat high. Urine is more clear today. PSA was 0.39 on 05/24/2017. He is on androgen deprivation therapy. Medical oncology consulted today. Past Med Surg Social Fam HX - Past Medical History Medical history: cancer, diabetes, hyperlipidemia, hypertension, other Additional medical history: prostate (last radiation 2017) Psychiatric history: depression - Past Surgical History Surgical History: orthopedic, other, ureteral stent, other Additional surgical history: left knee replacement, carpal tunnel surgery, bilateral nephro tube - Social History Smoking Status: Never smoker Smokeless Tobacco Status: No Alcohol use: none Drug use: none - Family History Father Family Member Ethnicity: Non- Living Status: Hx Family Cardiac Disorders: No Hx Family Respiratory Disorders: No Hx Family Cancer: Yes (Colon) Hx Family GI Disorders: No Hx Family Endocrine Disorder: Yes (Diabetes) Hx Family Neuromuscular Disorders: No Hx Family Neurologic Disorders: No Hx Family HEENT Disorders: No Hx Family Autoimmune Disorders: No Brother Family Member Ethnicity: Non- Living Status: Hx Family Cancer: Yes (Colon and lung) Mother Family Member Ethnicity: Non- Living Status: Sister Family Member Ethnicity: Non- Living Status: Still Living Hx Family Endocrine Disorder: Yes (DM) Medications and Allergies Insulin DETEMIR [Levemir] 30 unit SQ HS 30 Days [id number] 01/19/16 [Rx] Sertraline [Zoloft] 25 mg PO DAILY 04/13/16 [History] Insulin ASPART [Novolog Flexpen] 10 unit SQ TID 11/17/16 [History] Diltiazem CD (24hr) [Cardizem CD] 240 mg PO DAILY 12/15/16 [History] Lactobacillus Combination No.9 [Adult 50 + Probiotic] 1 cap PO DAILY 03/19/17 [ History] Ondansetron HCl [Zofran] 8 mg PO DAILY PRN 03/19/17 [History] Multivit-Min/FA/Lycopen/Lutein [Centrum Silver Men Tablet] 1 tab PO DAILY [History] Esomeprazole Magnesium [Nexium 24Hr] 20 mg PO DAILY 06/06/17 [History] Docusate Sodium [Dok] 100 mg PO DAILY PRN 06/07/17 [History] Amoxicillin 500 mg PO Q12HR 10 Days #20 tablet 06/10/17 [Rx] 3 Allergy/AdvReac Type Severity Reaction Status Date / Time No Known Allergies Allergy Verified 06/06/17 22:29 Review of Systems - Constitutional no chills, no fever(s) - EENT Nose, mouth and throat: no dizziness - Cardiovascular no chest pain - Respiratory no dyspnea - Gastrointestinal no nausea, no vomiting - Genitourinary no flank pain, no hematuria - Musculoskeletal no back pain - Integumentary no erythema, no rash - Neurological no weakness - Psychiatric no suicidal ideation - Hematologic/Lymphatic no easy bleeding - Allergic/Immunologic no wheezing Exam Initial Vital Signs Temp Pulse Resp BP Pulse Ox 98.3 F 98 20 166/77 96 07/29/17 18:02 07/29/17 18:02 07/29/17 18:02 07/29/17 18:02 07/29/17 18:02 - General physical appearance Present: well developed, well nourished, no distress - Eyes Absent: icteric - ENT Present: normal nares - Neck Present: trachea midline - Respiratory Present: normal respiratory effort - Cardiovascular Cardiovascular exam IM: RRR - Abdomen Abdomen: Present: soft - Genitourinary other (Bilateral nephrostomy tubes are in place with clear urine.) - Integumentary Present: other (Petechial rash in bilateral lower extremities.) - Neurologic Present: normal coordination - Musculoskeletal Present: other (Grossly normal) Urology Results - Labs 07/29/17 18:52 07/30/17 04:22 Abnormal lab results RBC 3.88 M/mcL (4.19-5.50) L 07/29/17 18:52 Hgb 12.0 g/dL (12.9-16.9) L 07/29/17 18:52 Hct 35.6 % (37.5-50.1) L 07/29/17 18:52 MPV 9.1 fL (9.4-12.4) L 07/29/17 18:52 BUN 43 mg/dL (8-23) H 07/30/17 04:22 Creatinine 2.75 mg/dL (0.70-1.30) H 07/30/17 04:22 Est GFR ( Amer) 28 (> 60) L 07/30/17 04:22 Est GFR (Non-Af Amer) 23 (> 60) L 07/30/17 04:22 Glucose 309 mg/dL (70-105) H 07/30/17 04:22 POC Glucose 125 mg/dL (70-99) H 07/29/17 22:06 Calculated Osmolality 307 (280-300) H 07/30/17 04:22 Calcium 8.3 mg/dL (8.6-10.3) L 07/30/17 04:22 Ur Specimen Adequacy See below A 07/29/17 18:25 Urine Color Red (Yellow) A 07/29/17 18:25 Urine Clarity Turbid (Clear) A 07/29/17 18:25 Urine Protein >=300 mg/dL (Neg-Trace) H 07/29/17 18:25 Urine Ketones Trace mg/dL (Negative) H 07/29/17 18:25 Urine Blood Large (Negative) H 07/29/17 18:25 Ur Leukocyte Esterase Large (Negative) H 07/29/17 18:25 Ur Culture Indicated? YES (NO) A 07/29/17 18:25 Diabetes panel 07/30/17 Range/Units 04:22 Sodium 137 (136-145) mEq/L Potassium 4.0 (3.5-5.1) mEq/L Chloride 107 (98-107) mEq/L Carbon Dioxide 23 (23-29) mEq/L BUN 43 H (8-23) mg/dL Creatinine 2.75 H (0.70-1.30) mg/dL Glucose 309 H (70-105) mg/dL Calcium 8.3 L (8.6-10.3) mg/dL Calcium panel 07/30/17 Range/Units 04:22 Calcium 8.3 L (8.6-10.3) mg/dL Pituitary panel 07/30/17 Range/Units 04:22 Sodium 137 (136-145) mEq/L Potassium 4.0 (3.5-5.1) mEq/L Chloride 107 (98-107) mEq/L Carbon Dioxide 23 (23-29) mEq/L BUN 43 H (8-23) mg/dL Creatinine 2.75 H (0.70-1.30) mg/dL Glucose 309 H (70-105) mg/dL Calcium 8.3 L (8.6-10.3) mg/dL Adrenal panel 07/30/17 Range/Units 04:22 Sodium 137 (136-145) mEq/L Potassium 4.0 (3.5-5.1) mEq/L Chloride 107 (98-107) mEq/L Carbon Dioxide 23 (23-29) mEq/L BUN 43 H (8-23) mg/dL Creatinine 2.75 H (0.70-1.30) mg/dL Glucose 309 H (70-105) mg/dL Calcium 8.3 L (8.6-10.3) mg/dL All other labs normal. Consult Discharge Plan - Plan Referrals: Saleem Ramirez DO [Primary Care Provider] -
[2017-07-30] MEDS: Lactobacillus 1 EACH CAP.SPRINK PO SCH (09:56)
[2017-07-30] MEDS: Diltiazem CD (24hr) 240 MG CAPSULE PO SCH (09:56)
[2017-07-30] MEDS: Insulin LISPRO 300 UNITS/3 ML VIAL SQ SCH ×6 (09:57→21:51)
[2017-07-30] MEDS: Ondansetron ODT 4 MG TAB.RAPDIS PO PRN (10:05)
--- NOTE | 2017-07-30 10:09 | Internal Med Progress Note ---
Date of Encounter: 07/30/17 Time of Encounter: 10:07 - Assessment and plan (1) Pyelonephritis Current Visit: Yes Status: Acute Assessment and plan: Pyelonephritis 2/2 bilateral ureteral obstruction H/o locally advanced prostate cancer, oncology following, appreciate recommendations and evaluation History of recurrent complicated UTIs Prior cultures growing E.faecalis, staph epi With frequent recurrence his organisms appear to be resistant Continue empiric treatment with IV ampicillin and IV doxy for now (in attempt to spare dapto, zyvox or vanco) hx of arline - suspect colonization instead of true infection Continue IVF Urine CXR and blood CX pending Urology following in consultation, appreciate evaluation and recommendations Plan for replacement of nephrostomy tubes tomorrow and IR; fissure to check INR in the morning (2) Ureteral obstruction Current Visit: Yes Status: Acute Assessment and plan: See above (3) Complicated UTI (urinary tract infection) Current Visit: No Status: Acute Assessment and plan: See above (4) Diabetes mellitus Current Visit: Yes Status: Chronic Assessment and plan: History of diabetes Increase sliding scale insulin coverage to Med Prandial insulin 10 units 3 times a day with meals Basal insulin Monitor glucose, adjust scale as necessary Qualifiers: Diabetes mellitus type: type 2 Diabetes mellitus intermediate school teacher insulin use: with nursing home use Diabetes mellitus complication status: with kidney complications Diabetes mellitus complication detail: with chronic kidney disease Chronic kidney disease stage: stage 3 (moderate) Qualified Code(s): E11.22 - Type 2 diabetes mellitus with diabetic chronic kidney disease; N18.3 - Chronic kidney disease, stage 3 (moderate); Z79.4 - terminal manager (current) use of insulin (5) Prostate cancer Current Visit: No Status: Acute Assessment and plan: Consult to oncology appreciate recommendations (6) Chronic kidney disease, stage III (moderate) Current Visit: No Status: Acute Assessment and plan: Baseline renal function monitor for now Avoid nephrotoxins (7) HTN (hypertension) Current Visit: No Status: Chronic Assessment and plan: History of HTN Stable today, 07/30/17 Resume anti-HTN medications Qualifiers: Hypertension type: essential hypertension Qualified Code(s): I10 - Essential (primary) hypertension (8) DVT prophylaxis Current Visit: Yes Status: Acute Assessment and plan: SQ heparin - Time Spent With Patient Total time spent is greater than 50% in coordination of care (as documented) at patient's floor/unit and/or counseling patient: Greater than 35 minutes - Subjective Interval history: Patient seen and examined at bedside today. No acute changes overnight. He is reporting mild bilateral flank pain, left greater than right. Additionally, patient is having chills and fatigue which she reports is his typical prodromal symptoms when he has a UTI. - Constitutional Vitals: Temp Pulse Resp BP Pulse Ox 99.3 F 70 16 138/82 95 07/30/17 07:39 07/30/17 07:39 07/30/17 07:39 07/30/17 07:39 07/30/17 07:39 General appearance: Present: A&O X 3, no acute distress, obese, answers questions appropriately - Head Head exam: Present: atraumatic, normocephalic - Eye Eye exam: Present: EOMI, PERRL, conjuntiva pink, sclera anicteric Pupils: Present: PERRL - Neck Neck exam general surgery: Present: supple, trachea midline. Absent: lymphadenopathy - Respiratory Respiratory exam: Present: CTAB. Absent: accessory muscle use, rales, rhonchi, wheezes - Cardiovascular Cardiovascular exam: Present: RRR, +S1, +S2. Absent: diastolic murmur, gallop, rubs, systolic murmur - GI/Abdominal GI/Abdominal exam: Present: normal bowel sounds, soft, no peritoneal signs. Absent: distended, tenderness - Extremities Exam Extremities exam: Present: warm, radial pulses palpable and symmetrical. Absent : calf tenderness, cyanotic, pedal edema - Back Exam Back exam: Present: CVA tenderness (L), CVA tenderness (R) - Neurological Exam Neurological exam: Present: CN II-XII intact, oriented X3, no focal deficits. Absent: pronater drift, facial droop, speech deficit - Skin Skin exam: Present: dry, intact Internal Medicine: Result - Labs CBC & Chem 7: 07/29/17 18:52 07/30/17 04:22 Labs: BMP 07/30/17 04:22 Sodium 137 Potassium 4.0 Chloride 107 Carbon Dioxide 23 BUN 43 H Creatinine 2.75 H Glucose 309 H Calcium 8.3 L Consult Discharge Plan - Plan Referrals: Saleem Ramirez DO [Primary Care Provider] -
[2017-07-30] MEDS: AMPICILLIN IVPB SCH ×2 (12:28→18:48)
[2017-07-30] MEDS: SODIUM CHLORIDE 0.9% IVPB SCH ×2 (12:28→18:48)
[2017-07-30] MEDS: Ringers Solution, Lactated 1,000 ML IVC SCH (13:33)
[2017-07-30] MEDS ORDERED: Insulin LISPRO 300 UNITS/3 ML VIAL SQ SCH (21:00)
[2017-07-30] MEDS ORDERED: Doxycycline 100 MG in 0.9 % Sodium Chloride Mini Bag 100 ML IVPB SCH (21:04)
[2017-07-30] MEDS: Insulin DETEMIR 100 UNIT/ML X5UNITS SQ SCH (21:52)
[2017-07-31] MEDS: SODIUM CHLORIDE 0.9% IVPB SCH ×5 (00:14→23:40)
[2017-07-31] MEDS: AMPICILLIN IVPB SCH ×5 (00:14→23:40)
[2017-07-31] MEDS: Doxycycline 100 MG in 0.9 % Sodium Chloride Mini Bag 100 ML IVPB SCH ×2 (00:19→13:27)
[2017-07-31 04:28] LABS: Prothrombin Time 10.3 Seconds (9.4-12.1)
[2017-07-31 04:42] LABS: Calcium 8.8 mg/dL (8.6-10.3)
[2017-07-31] MEDS: *HR* Heparin 5,000 UNIT/ML VIAL SQ SCH ×2 (05:48→16:12)
[2017-07-31] MEDS: Lactobacillus 1 EACH CAP.SPRINK PO SCH (09:23)
[2017-07-31] MEDS: Diltiazem CD (24hr) 240 MG CAPSULE PO SCH (09:23)
[2017-07-31] MEDS: Insulin LISPRO 300 UNITS/3 ML VIAL SQ SCH ×7 (09:24→21:09)
--- NOTE | 2017-07-31 09:35 | Internal Med Progress Note ---
Date of Encounter: 07/31/17 Time of Encounter: 09:32 - Assessment and plan (1) Pyelonephritis Current Visit: Yes Status: Acute Assessment and plan: Pyelonephritis 2/2 bilateral ureteral obstruction Patient has b/l nephrostomy tubes, likely colonized and will need replaced H/o locally advanced prostate cancer, oncology following, appreciate recommendations and evaluation History of recurrent complicated UTIs Prior cultures growing E.faecalis, staph epi With frequent recurrence his organisms appear to be resistant Continue empiric treatment with IV ampicillin and IV doxy for now (in attempt to spare dapto, zyvox or vanco) hx of arline - suspect colonization instead of true infection Continue IVF Urine CX growing-GPC, blood CX pending Urology following in consultation, appreciate evaluation and recommendations Plan for replacement of nephrostomy tubes in IR INR 1.0 this morning (2) Ureteral obstruction Current Visit: Yes Status: Acute Assessment and plan: See above (3) Complicated UTI (urinary tract infection) Current Visit: No Status: Acute Assessment and plan: See above (4) Diabetes mellitus Current Visit: Yes Status: Chronic Assessment and plan: History of diabetes 07/31/17-blood glucose better controlled this morning Increase sliding scale insulin coverage to Med Prandial insulin 10 units 3 times a day with meals Basal insulin Monitor glucose, adjust scale as necessary Qualifiers: Diabetes mellitus type: type 2 Diabetes mellitus [facility] insulin use: with watermelon inspector use Diabetes mellitus complication status: with kidney complications Diabetes mellitus complication detail: with chronic kidney disease Chronic kidney disease stage: stage 3 (moderate) Qualified Code(s): E11.22 - Type 2 diabetes mellitus with diabetic chronic kidney disease; N18.3 - Chronic kidney disease, stage 3 (moderate); Z79.4 - manager terminal (current) use of insulin (5) Prostate cancer Current Visit: No Status: Acute Assessment and plan: Consult to oncology appreciate recommendations (6) Chronic kidney disease, stage III (moderate) Current Visit: No Status: Acute Assessment and plan: Per today's labs, renal function at baseline Continue to monitor for now Avoid nephrotoxins IVF (7) HTN (hypertension) Current Visit: No Status: Chronic Assessment and plan: History of HTN Mild hypertension today, SBP in the 150s-160s Resume anti-HTN medications Hydralazine 10 mg IV push every 6 when necessary Continue to closely monitor and adjust medications as necessary Qualifiers: Hypertension type: essential hypertension Qualified Code(s): I10 - Essential (primary) hypertension (8) DVT prophylaxis Current Visit: Yes Status: Acute Assessment and plan: SQ heparin 07/31/17 - Time Spent With Patient Total time spent is greater than 50% in coordination of care (as documented) at patient's floor/unit and/or counseling patient: 25 - 35 minutes - Subjective Interval history: Patient seen and examined at bedside today. No acute changes overnight. He is continuing to report mild bilateral flank pain, left greater than right. Weakness and fatigue is improving overnight. - Constitutional Vitals: Temp Pulse Resp BP Pulse Ox 98.2 F 67 16 155/87 94 07/31/17 07:07 07/31/17 07:07 07/31/17 07:07 07/31/17 07:07 07/31/17 07:07 General appearance: Present: A&O X 3, no acute distress, obese, answers questions appropriately - Head Head exam: Present: atraumatic, normocephalic - Eye Eye exam: Present: PERRL, conjuntiva pink, sclera anicteric Pupils: Present: PERRL - Neck Neck exam general surgery: Present: supple, trachea midline. Absent: lymphadenopathy - Respiratory Respiratory exam: Present: CTAB. Absent: accessory muscle use, rales, rhonchi, wheezes - Cardiovascular Cardiovascular exam: Present: RRR, +S1, +S2. Absent: diastolic murmur, gallop, rubs, systolic murmur - GI/Abdominal GI/Abdominal exam: Present: normal bowel sounds, soft, no peritoneal signs. Absent: distended, tenderness - Extremities Exam Extremities exam: Present: warm, radial pulses palpable and symmetrical. Absent : calf tenderness, cyanotic, pedal edema - Back Exam Back exam: Present: CVA tenderness (L) Additional comments: Indwelling nephrostomy tubes bilaterally - Neurological Exam Neurological exam: Present: CN II-XII intact, oriented X3, no focal deficits. Absent: pronater drift, facial droop, speech deficit - Skin Skin exam: Present: dry, intact Internal Medicine: Result - Labs CBC & Chem 7: 07/29/17 18:52 07/31/17 04:05 Labs: BMP 07/31/17 04:05 Sodium 138 Potassium 4.0 Chloride 109 H Carbon Dioxide 23 BUN 37 H Creatinine 2.49 H Glucose 168 H Calcium 8.8 - ABG Interpretation ABG results: PT/INR, D-dimer PT 10.3 Seconds (9.4-12.1) 07/31/17 04:05 Consult Discharge Plan - Plan Referrals: Saleem Ramirez DO [Primary Care Provider] -
--- NOTE | 2017-07-31 11:06 | Urology Progress Note ---
Date of Encounter: 07/31/17 Time of Encounter: 11:05 - Assessment and Plan (1) Ureteral obstruction Current Visit: Yes Status: Acute (2) Prostate cancer Current Visit: No Status: Acute (3) UTI (urinary tract infection) Current Visit: No Status: Acute Assessment and plan: 67 year old man with uti and bilateral ureteral obstruction. Plan for neph tube change. Await urine culture results. Qualifiers: Urinary tract infection type: acute cystitis Hematuria presence: without hematuria Qualified Code(s): N30.00 - Acute cystitis without hematuria Progress Note Narrative: Doing well today. No fever overnight. IR planning on neph tube change. Urine cultures growing out Gram Positive cocci. Objective Initial Vital Signs Temp Pulse Resp BP Pulse Ox 98.3 F 98 20 166/77 96 07/29/17 18:02 07/29/17 18:02 07/29/17 18:02 07/29/17 18:02 07/29/17 18:02 - General physical appearance Present: well developed, well nourished, no distress - Respiratory Present: normal respiratory effort - Abdomen Present: soft - Genitourinary Urine Appearance: Present: Clear - Labs 07/29/17 18:52 07/31/17 04:05 Diabetes panel 07/31/17 Range/Units 04:05 Sodium 138 (136-145) mEq/L Potassium 4.0 (3.5-5.1) mEq/L Chloride 109 H (98-107) mEq/L Carbon Dioxide 23 (23-29) mEq/L BUN 37 H (8-23) mg/dL Creatinine 2.49 H (0.70-1.30) mg/dL Glucose 168 H (70-105) mg/dL Calcium 8.8 (8.6-10.3) mg/dL Calcium panel 07/31/17 Range/Units 04:05 Calcium 8.8 (8.6-10.3) mg/dL Pituitary panel 07/31/17 Range/Units 04:05 Sodium 138 (136-145) mEq/L Potassium 4.0 (3.5-5.1) mEq/L Chloride 109 H (98-107) mEq/L Carbon Dioxide 23 (23-29) mEq/L BUN 37 H (8-23) mg/dL Creatinine 2.49 H (0.70-1.30) mg/dL Glucose 168 H (70-105) mg/dL Calcium 8.8 (8.6-10.3) mg/dL Adrenal panel 07/31/17 Range/Units 04:05 Sodium 138 (136-145) mEq/L Potassium 4.0 (3.5-5.1) mEq/L Chloride 109 H (98-107) mEq/L Carbon Dioxide 23 (23-29) mEq/L BUN 37 H (8-23) mg/dL Creatinine 2.49 H (0.70-1.30) mg/dL Glucose 168 H (70-105) mg/dL Calcium 8.8 (8.6-10.3) mg/dL Consult Discharge Plan - Plan Referrals: Saleem Ramirez DO [Primary Care Provider] - 08/08/17 1:00 pm
[2017-07-31] MEDS ORDERED: 0.9 % Sodium Chloride 500 ML ONE (11:22)
[2017-07-31] MEDS: Ondansetron ODT 4 MG TAB.RAPDIS PO PRN ×2 (11:29→15:26)
[2017-07-31] MEDS: 0.9 % Sodium Chloride 1,000 ML IVC SCH (11:34)
--- NOTE | 2017-07-31 12:36 | IR Procedure Note ---
Date of procedure: 07/31/17 Consent Obtained: Written consent Timeout: Correct patient and procedure verified, Correct site verified, Time out performed, Skin prep completed Local anesthetic: Lidocaine 1% Indications: UTI, indwelling PCN tubes. H/o prostate cancer s/p radiation Procedure Performed: Bilateral PCN tube exchange Was there an assistant education director present: No Site/Technique: Bilateral 10fr drains exchanged. Results/Findings: Working well. No immediate complications. Estimated blood loss (cc): 0 Complications: None; Tolerated procedure well Post Procedure Treatment Plan: Monitoring in pts room Specimen: n/a
[2017-07-31] MEDS ORDERED: *HR* Promethazine 25 MG/ML VIAL IVP PRN (15:50)
[2017-07-31] MEDS: Insulin DETEMIR 100 UNIT/ML X5UNITS SQ SCH (21:08)
[2017-08-01] MEDS: traMADol 50 MG TABLET PO PRN ×2 (00:10→23:06)
[2017-08-01] MEDS: Ondansetron 4 MG/2 ML VIAL IVP PRN ×2 (00:15→23:14)
[2017-08-01] MEDS: Doxycycline 100 MG in 0.9 % Sodium Chloride Mini Bag 100 ML IVPB SCH ×2 (00:20→17:31)
[2017-08-01] MEDS: AMPICILLIN IVPB SCH ×2 (05:12→12:29)
[2017-08-01] MEDS: SODIUM CHLORIDE 0.9% IVPB SCH ×2 (05:12→12:29)
[2017-08-01] MEDS: *HR* Heparin 5,000 UNIT/ML VIAL SQ SCH ×2 (05:18→18:37)
[2017-08-01 06:47] LABS: Calcium 8.6 mg/dL (8.6-10.3); Potassium 4.1 mEq/L (3.5-5.1)
[2017-08-01] MEDS: 0.9 % Sodium Chloride 1,000 ML IVC SCH ×2 (07:28→20:41)
[2017-08-01] MEDS: Lactobacillus 1 EACH CAP.SPRINK PO SCH (07:29)
[2017-08-01] MEDS: Diltiazem CD (24hr) 240 MG CAPSULE PO SCH (07:29)
[2017-08-01] MEDS: Insulin LISPRO 300 UNITS/3 ML VIAL SQ SCH ×7 (08:21→20:37)
[2017-08-01 08:49] LABS: Basophils % 0.3 %; Eosinophils # 0.3 K/mcL (0.0-0.6); Eosinophils % 4.6 %; Hematocrit 34.6 % (37.5-50.1); Hemoglobin 11.6 g/dL (12.9-16.9); Immature Granulocytes % 0.5 % (0-4); Lymphocytes # 0.9 K/mcL (0.6-4.6); Lymphocytes % 13.2 %; Mean Corpuscular HGB Conc 33.5 g/dL (31.6-35.5); Mean Corpuscular Hemoglobin 30.9 pg (28.0-33.3); Mean Corpuscular Volume 92.3 fL (83.0-100.0); Mean Platelet Volume 8.9 fL (9.4-12.4); Monocytes # 0.6 K/mcL (0.0-1.3); Monocytes % 8.3 %; Neutrophils # 4.8 K/mcL (1.6-8.9); Platelet Count 311 K/mcL (140-400); Red Blood Count 3.75 M/mcL (4.19-5.50); Red Cell Distribution Width 13.2 % (11.5-14.5); Segmented Neutrophils % 73.1 %
--- NOTE | 2017-08-01 09:55 | Internal Med Progress Note ---
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-to sensitive hx of arline - suspect colonization instead of true infection blood CX pending Urology following in consultation, appreciate evaluation and recommendations For ostomy tubes replaced per IR (2) Diabetes mellitus Current Visit: Yes Status: Chronic Assessment and plan: History of diabetes Blood glucose is stable at this time continue with Accu-Cheks and sliding scale insulin as well as basal insulin and prandial insulin 10 units 3 times a day with meals Qualifiers: Diabetes mellitus type: type 2 Diabetes mellitus [facility] insulin use: with [facility] use Diabetes mellitus complication status: with kidney complications Diabetes mellitus complication detail: with chronic kidney disease Chronic kidney disease stage: stage 3 (moderate) Qualified Code(s): E11.22 - Type 2 diabetes mellitus with diabetic chronic kidney disease; N18.3 - Chronic kidney disease, stage 3 (moderate); Z79.4 - radiology director (current) use of insulin (3) Prostate cancer Current Visit: No Status: Acute Assessment and plan: Consult to oncology appreciate recommendations (4) Complicated UTI (urinary tract infection) Current Visit: No Status: Acute Assessment and plan: Culture does show Staphylococcus xylosis, I did discuss this with Dr. Saravia will continue with doxycycline and converted to oral medication (5) Chronic kidney disease, stage III (moderate) Current Visit: No Status: Acute Assessment and plan: Per today's labs, renal function at baseline we will continue to monitor Avoid nephrotoxins (6) HTN (hypertension) Current Visit: No Status: Chronic Qualifiers: Hypertension type: essential hypertension Qualified Code(s): I10 - Essential (primary) hypertension (7) Ureteral obstruction Current Visit: Yes Status: Acute Assessment and plan: See above (8) DVT prophylaxis Current Visit: Yes Status: Acute Assessment and plan: SQ heparin - Time Spent With Patient Total time spent is greater than 50% in coordination of care (as documented) at patient's floor/unit and/or counseling patient: - Subjective Interval history: Patient seen and examined at bedside, currently denies any pain or discomfort, nephrostomy tubes are draining with clear yellow urine - Constitutional Vitals: Temp Pulse Resp BP Pulse Ox 98.3 F 73 16 155/89 94 08/01/17 07:17 08/01/17 07:17 08/01/17 07:17 08/01/17 07:17 08/01/17 07:17 General appearance: Present: A&O X 3, no acute distress, obese, answers questions appropriately - Head Head exam: Present: atraumatic, normocephalic - Eye Eye exam: Present: PERRL, conjuntiva pink, sclera anicteric Pupils: Present: PERRL - Neck Neck exam general surgery: Present: supple, trachea midline. Absent: lymphadenopathy - Respiratory Respiratory exam: Present: CTAB. Absent: accessory muscle use, rales, rhonchi, wheezes - Cardiovascular Cardiovascular exam: Present: RRR, +S1, +S2. Absent: diastolic murmur, gallop, rubs, systolic murmur - GI/Abdominal GI/Abdominal exam: Present: normal bowel sounds, soft, no peritoneal signs. Absent: distended, tenderness - Extremities Exam Extremities exam: Present: warm, radial pulses palpable and symmetrical. Absent : calf tenderness, cyanotic, pedal edema - Back Exam Back exam: Present: tenderness (tenderness around nephrostomy sites bilat no redness swelling or drainage ) - Neurological Exam Neurological exam: Present: CN II-XII intact, oriented X3, no focal deficits. Absent: pronater drift, facial droop, speech deficit Internal Medicine: Result - Labs CBC & Chem 7: 08/01/17 08:03 08/01/17 06:16 Labs: Short CBC 08/01/17 Range/Units 08:03 WBC 6.6 (4.3-11.1) K/mcL Hgb 11.6 L (12.9-16.9) g/dL Hct 34.6 L (37.5-50.1) % Plt Count 311 (140-400) K/mcL Neutrophils # 4.8 (1.6-8.9) K/mcL BMP 08/01/17 06:16 Sodium 138 Potassium 4.1 Chloride 109 H Carbon Dioxide 22 L BUN 33 H Creatinine 2.40 H Glucose 163 H Calcium 8.6 - ABG Interpretation ABG results: PT/INR, D-dimer PT 10.3 Seconds (9.4-12.1) 07/31/17 04:05 - Impressions Impressions Nephrostomy Tube Change 07/31/17 09:34 IMPRESSION: Successful bilateral exchange of 10 [place] nephrostomy tubes over wire. D/ / Mark Bishop MD / Mark Bishop MD Interpreting Provider: Mark Bishop MD Consult Discharge Plan - Plan Referrals: Saleem Ramirez DO [Primary Care Provider] - 08/08/17 1:00 pm
[2017-08-01] MEDS: Insulin DETEMIR 100 UNIT/ML X5UNITS SQ SCH (20:38)
[2017-08-02 05:31] LABS: Basophils % 0.6 %; Eosinophils # 0.4 K/mcL (0.0-0.6); Eosinophils % 7.3 %; Hematocrit 31.7 % (37.5-50.1); Hemoglobin 10.3 g/dL (12.9-16.9); Immature Platelets 0.8 % (1.1-6.1); Lymphocytes # 0.8 K/mcL (0.6-4.6); Lymphocytes % 16.4 %; Mean Corpuscular HGB Conc 32.5 g/dL (31.6-35.5); Mean Corpuscular Hemoglobin 30.3 pg (28.0-33.3); Mean Corpuscular Volume 93.2 fL (83.0-100.0); Mean Platelet Volume 9.3 fL (9.4-12.4); Monocytes # 0.5 K/mcL (0.0-1.3); Monocytes % 9.5 %; Neutrophils # 3.3 K/mcL (1.6-8.9); Platelet Count 326 K/mcL (140-400); Red Cell Distribution Width 13.3 % (11.5-14.5); Segmented Neutrophils % 65.2 %
[2017-08-02 05:45] LABS: Calcium 8.8 mg/dL (8.6-10.3); Potassium 3.9 mEq/L (3.5-5.1)
[2017-08-02] MEDS ORDERED: Doxycycline 100 MG in 0.9 % Sodium Chloride Mini Bag 100 ML IVPB SCH (06:00)
[2017-08-02] MEDS: *HR* Heparin 5,000 UNIT/ML VIAL SQ SCH (07:33)
[2017-08-02 07:36] VITALS: BP 152/84
--- NOTE | 2017-08-02 08:13 | Discharge Summary ---
- NOTES TO OUTPATIENT PROVIDER Notes to Outpatient Provider: Nephrostomy tubes changed bilaterally. Urine culture did grow staphylococcus xylosus- senstive to doxycycline- cont for 7 days Date of Encounter: 08/02/17 Time of Encounter: 08:11 - Discharge Diagnosis (1) Pyelonephritis Priority: Primary Status: Acute (2) Diabetes mellitus Priority: Secondary Status: Chronic Qualifiers: Diabetes mellitus type: type 2 Diabetes mellitus long chain beamer insulin use: with long chain beamer use Diabetes mellitus complication status: with kidney complications Diabetes mellitus complication detail: with chronic kidney disease Chronic kidney disease stage: stage 3 (moderate) Qualified Code(s): E11.22 - Type 2 diabetes mellitus with diabetic chronic kidney disease; N18.3 - Chronic kidney disease, stage 3 (moderate); Z79.4 - buttermaker helper (current) use of insulin (3) Prostate cancer Priority: Secondary Status: Acute (4) Complicated UTI (urinary tract infection) Priority: Primary Status: Acute (5) Chronic kidney disease, stage III (moderate) Priority: Secondary Status: Acute (6) HTN (hypertension) Priority: Secondary Status: Chronic Qualifiers: Hypertension type: essential hypertension Qualified Code(s): I10 - Essential (primary) hypertension (7) Ureteral obstruction Priority: Primary Status: Acute Hospital course: Mr. Rivera is a 67 year old male past medical history of prostate cancer on androgen deprivation therapy diabetes hyperlipidemia hypertension status post TURP bilateral ureteral obstruction previously stented but failed nephrostomy tubes were then placed on 03/22/2017 he had been changed on 06/07/2017. Patient was seen earlier this week and urology office experiencing some weakness nausea and belching. He then developed bilateral hematuria and had a temperature of 101. In the emergency department he was found to have a urinary tract infection previously had enterococcus as well as Emmanuelle in his urine he was placed on ampicillin and doxycycline patient was seen by urology who recommended nephrostomy tube changes bilaterally. Patient underwent nephrostomy tube changes on 07/31/2017 and tolerated procedure well. Urine culture did show Staphylococcus xylosus - which was sensitive to doxycycline. I did discuss with urology in agreement with Doxy patient will continue oral Doxy for next 5 days to complete a seven-day course. Patient will follow-up with urology as outpatient as well as primary care since these providers know him best and can adjust medications accordingly. Patient will also follow-up with oncology. I did review follow-up plan as well as medications with the patient who verbalized understanding. Presently he is hemodynamically stable and he is ready for discharge. Discharge discussed with: patient - Time Spent with Patient Total time spent providing and/or coordinating discharge services: - Discharge Medications Prescriptions: Doxycycline 100 mg PO BID #11 capsule Home Medications: Insulin DETEMIR [Levemir] 30 unit SQ HS 30 Days [id number] 01/19/16 [Rx] Sertraline [Zoloft] 25 mg PO DAILY 04/13/16 [History] Insulin ASPART [Novolog Flexpen] 10 unit SQ TID 11/17/16 [History] Diltiazem CD (24hr) [Cardizem CD] 240 mg PO DAILY 12/15/16 [History] Lactobacillus Combination No.9 [Adult 50 + Probiotic] 1 cap PO DAILY 03/19/17 [ History] Ondansetron HCl [Zofran] 8 mg PO DAILY PRN 03/19/17 [History] Multivit-Min/FA/Lycopen/Lutein [Centrum Silver Men Tablet] 1 tab PO DAILY [History] Esomeprazole Magnesium [Nexium 24Hr] 20 mg PO DAILY 06/06/17 [History] Docusate Sodium [Dok] 100 mg PO DAILY PRN 06/07/17 [History] Doxycycline 100 mg PO BID #11 capsule 08/02/17 [Rx] Allergies/Adverse Reactions: 3 Allergy/AdvReac Type Severity Reaction Status Date / Time tegaderm AdvReac Blister Uncoded 08/01/17 23:28 Date of admission: 07/29/17 21:05 Primary care physician: Saleem Ramirez DO Consults: 07/30/17 09:34 Consult to Interventional Radiology [CONS] Routine Consulting Provider: Radiology Interventional Cols Reason for Consult: Change bilateral nephrostomy tubes, 07/31/2017 or 2017. Call Completed: No Discharging clinician: Alicia Molina Anticipated date of discharge: 08/02/17 - Constitutional Vitals: Temp Pulse Resp BP Pulse Ox 98.1 F 77 20 152/84 95 08/02/17 07:34 08/02/17 07:34 08/02/17 07:34 08/02/17 07:34 08/02/17 07:34 General appearance: Present: A&O X 3, no acute distress, obese, answers questions appropriately - Head Head exam: Present: atraumatic, normocephalic - Eye Eye exam: Present: PERRL, conjuntiva pink, sclera anicteric Pupils: Present: PERRL - Neck Neck exam general surgery: Present: supple, trachea midline. Absent: lymphadenopathy - Respiratory Respiratory exam: Present: CTAB. Absent: accessory muscle use, rales, rhonchi, wheezes - Cardiovascular Cardiovascular exam: Present: RRR, +S1, +S2. Absent: diastolic murmur, gallop, rubs, systolic murmur - GI/Abdominal GI/Abdominal exam: Present: normal bowel sounds, soft, no peritoneal signs. Absent: distended, tenderness - Extremities Exam Extremities exam: Present: warm, radial pulses palpable and symmetrical. Absent : calf tenderness, cyanotic, pedal edema - Back Exam Additional comments: Nephrostomy tubes are patent and draining clear yellow urine bilaterally area no redness swelling or drainage around insertion site. - Neurological Exam Neurological exam: Present: CN II-XII intact, oriented X3, no focal deficits. Absent: pronater drift, facial droop, speech deficit - Skin Skin exam: Present: dry, intact - Patient Status Disposition: Home, Self-Care Condition: Fair Functional capacity at discharge: independent ambulation Overall status at discharge: patient is back to baseline - Discharge Instructions Instructions: Urinary Tract Infection in Men (DC), Diabetes Mellitus Type 2 in Adults (DC) Follow Up With: [facility] [Provider Group] - 08/29/17 7:45 am Saleem Ramirez DO [Primary Care Provider] - 08/08/17 1:00 pm
[2017-08-02] MEDS: Insulin LISPRO 300 UNITS/3 ML VIAL SQ SCH ×4 (08:43→12:35)
[2017-08-02] MEDS: Diltiazem CD (24hr) 240 MG CAPSULE PO SCH (08:43)
[2017-08-02] MEDS: Lactobacillus 1 EACH CAP.SPRINK PO SCH (08:43)
== END 2017-08-02 14:04 | disposition home or self-care (01) | DRG 694 ==
LOC: 3BNU 18:01 → EMEROO 18:01 → 3BNU 21:47
PROVIDERS: ADMIT Internal Medicine Hematology & Oncology; ATTEND Pediatrics

== ENCOUNTER 2017-10-16 11:51 | Inpatient (IN) ==
[2017-10-16] MEDS ORDERED: Ondansetron 4 MG/2 ML VIAL IVP ONE (12:27)
[2017-10-16] MEDS ORDERED: *HR* FentaNYL (PF) 100 MCG/2 ML VIAL IVP ONE ×2 (12:28→15:18)
--- NOTE | 2017-10-16 12:51 | Emergency Department Note ---
Disposition Clinical Impression: Right kidney stone, Right flank pain Urinary tract infection Qualifiers: Urinary tract infection type: acute pyelonephritis Qualified Code(s): N10 - Acute pyelonephritis Disposition: Admitted As Inpatient Condition: Fair General Adult HPI - General Chief complaint: ED Abdominal Pain Stated complaint: R flank pain Time Seen by Provider: 10/16/17 12:09 Source: patient Mode of arrival: private vehicle Limitations: no limitations Nursing Notes Reviewed: Yes Vital Signs Reviewed: Yes - History of Present Illness HPI Narrative: Patient is a 67-year-old male with past medical history significant for prostate cancer, lateral nephrostomy tubes, hypertension who presents with chief complaint of right upper quadrant pain for one month. The patient states he had his nephrostomy tubes replaced by IR on September 09. He states the right side 1 was manipulated adds that I R did not like its initial placement. He states after the procedure he developed right upper quadrant pain that is associated with nausea. He states the pain is intermittently sharp and is otherwise a dull constant pain. He has been evaluated by his primary care physician, economic analyst, [facility]. [facility] did a bone scan that showed no metastasis. He also had a CT of his chest and abdomen and pelvis which showed no abnormalities. They state nephrostomy tubes appear to be placed correctly. He denies any hematuria. He states his tubes have been draining clear yellow urine. 2 days ago he states he noticed the pain worsened after he ate a hot dog. He also had some nausea with this. He states the pain has not gone away and that is why he is presenting here today. He denies any chest pain, shortness of breath, diarrhea. He has no history of blood clots, aneurysm Pain Scale: 4 - Related Data Home Medications Medication Instructions Recorded Confirmed Sertraline [Zoloft] 25 mg PO DAILY 04/13/16 10/16/17 Insulin ASPART [Novolog Flexpen] 10 - 15 unit SQ TID 11/17/16 10/16/17 Diltiazem CD (24hr) [Cardizem CD] 240 mg PO DAILY 12/15/16 10/16/17 Lactobacillus Combination No.9 1 cap PO DAILY 03/19/17 10/16/17 [Adult 50 + Probiotic] Ondansetron HCl [Zofran] 8 mg PO DAILY PRN 03/19/17 10/16/17 Multivit-Min/FA/Lycopen/Lutein 1 tab PO DAILY 04/25/17 10/16/17 [Centrum Silver Men Tablet] Esomeprazole Magnesium [Nexium 20 mg PO DAILY 06/06/17 10/16/17 24Hr] Docusate Sodium [Dok] 100 mg PO DAILY PRN 06/07/17 10/16/17 Gabapentin [Neurontin] 100 mg PO DAILY 10/16/17 10/16/17 Losartan [Cozaar] 25 mg PO BID 10/16/17 10/16/17 Tramadol HCl [Ultram] 50 mg PO Q6H PRN 10/16/17 10/16/17 Previous Rx's Medication Instructions Recorded Insulin DETEMIR [Levemir] 30 unit SQ HS 30 Days [id number] 01/19/16 Allergies Allergy/AdvReac Type Severity Reaction Status Date / Time tegaderm AdvReac Blister Uncoded 10/16/17 16:06 All systems ED: reviewed and negative except as stated. Review of Systems: As Per HPI Constitutional: Denies: fever, chills Eyes: Denies: vision change ENT ED: Denies: throat pain, congestion Cardiovascular: Denies: chest pain, palpitations Respiratory: Denies: cough, dyspnea Gastrointestinal: Reports: abdominal pain, nausea, constipation. Denies: vomiting, diarrhea Genitourinary: Denies: dysuria Musculoskeletal: Denies: back pain Past Medical History - Past Medical History Attestation: Yes The following information was validated with the patient. Source: patient Medical history: Reports: cancer, diabetes, hyperlipidemia, hypertension, other Surgical history: Reports: orthopedic, other, ureteral stent, other Psychiatric history: Reports: depression - Social History Smoking Status: Never smoker Smokeless Tobacco Status: No Alcohol use: Reports: none Drug use: Reports: none Physical Exam - General Limitations: no limitations General appearance: alert - Head Head exam: atraumatic, normocephalic - Eye Eye exam: Present: normal appearance, EOMI. Absent: scleral icterus - ENT ENT exam: mucous membranes moist - Respiratory Respiratory exam: Present: normal lung sounds bilaterally. Absent: respiratory distress, wheezes - Cardiovascular Cardiovascular exam: Present: regular rate, normal rhythm, normal heart sounds - Abdominal Exam Abdominal exam: Present: soft, normal bowel sounds. Absent: distention, guarding Abdominal tenderness: Present: RUQ, moderate - Back Exam Back exam: Present: other (Bilateral nephrostomy tubes draining clear yellow urine). Absent: tenderness - Neurological Exam Neurological exam: Present: alert, oriented X3, CN II-XII intact - Psychiatric Psychiatric exam: Present: normal affect, normal mood - Skin Skin exam: Present: warm, dry Course Vital Signs Temperature 97.5 F L 10/16/17 12:00 Pulse Rate 76 10/16/17 12:00 Respiratory Rate 18 10/16/17 12:00 Blood Pressure 174/83 10/16/17 12:00 O2 Sat by Pulse Oximetry 98 10/16/17 12:00 Temperature 98.3 F 10/16/17 18:48 Pulse Rate 102 10/16/17 18:48 Respiratory Rate 15 10/16/17 18:48 Blood Pressure 129/72 10/16/17 18:48 O2 Sat by Pulse Oximetry 96 10/16/17 18:48 Oxygen Delivery Oxygen Delivery Room Air Medical Decision Making - MDM Narrative Medical decision making narrative: Patient had his nephrostomy tubes replaced on September 09 by IR. He is complaining of right upper quadrant pain that is constant. He had significant workup a [facility]. Imaging was negative for acute abdominal or thoracic abnormalities per patient and his . His nephrostomy tubes were in appropriate position. At this time we will check EKG, troponin, CBC, BMP, hepatic panel, lipase, chest x- ray for further evaluation. Fentanyl and Zofran given for his pain and nausea. 13:48 Labs reviewed. Hepatic enzymes, lipase, troponin are all normal. Low suspicion for a cardiac cause at this time. Patient has significant right upper quadrant tenderness and pain. He states his gallbladder has never been evaluated. We will obtain right upper quadrant ultrasound to evaluate for gallbladder stones. He did have some improvement in his pain after the fentanyl. 15:15 A bladder ultrasound shows no gallbladder stones, pericholecystic fluid, gallbladder wall thickening. Common bile duct is 4 mm. He does have a 6 mm stone in the mid right kidney. There is no hydronephrosis. Urinalysis positive for small blood, positive nitrites and leukocyte esterase. We will admit the patient for further management. His prior urinary tract infections have grown out organisms such as Alex and Staph Xylosis. Will give 1g vancomycin at this time. Patient will be admitted for further management. Urology consulted at 15:47 Discussed with hospitalist, Dr. [place] at 1630. He accepts admission. 17:00 At this time, urology has not called back, but a consult has been placed. Hospitalist is aware of this. 17:30 Patient is complaining of worsening pain. A second dose of the fentanyl was ordered 2 hours ago. He is just now receiving it. Phenergan ordered as Zofran did not help with his nausea. - Medical Records Medical records reviewed: Yes I reviewed the patient's medical records. - Lab Data Lab results reviewed: Yes I reviewed the patient's lab results. Result diagrams: 10/16/17 12:21 10/16/17 12:21 Lab Results 10/16/17 10/16/17 10/16/17 Range/Units 12:21 12:21 12:21 WBC 6.3 (4.3-11.1) K/mcL RBC 3.76 L (4.19-5.50) M/mcL Hgb 11.5 L (12.9-16.9) g/dL Hct 34.2 L (37.5-50.1) % MCV 91.0 (83.0-100.0) fL MCH 30.6 (28.0-33.3) pg MCHC 33.6 (31.6-35.5) g/dL RDW 12.7 (11.5-14.5) % Plt Count 329 (140-400) K/mcL MPV 8.9 L (9.4-12.4) fL Immature Gran % 0.5 (0-4) % Seg Neutrophils % 72.5 % Lymphocytes % 13.6 % Monocytes % 8.5 % Eosinophils % 4.3 % Basophils % 0.6 % Neutrophils # 4.6 (1.6-8.9) K/mcL Lymphocytes # 0.9 (0.6-4.6) K/mcL Monocytes # 0.5 (0.0-1.3) K/mcL Eosinophils # 0.3 (0.0-0.6) K/mcL Basophils # 0.0 (0.0-0.2) K/mcL Sodium 137 (136-145) mEq/L Potassium 4.2 (3.5-5.1) mEq/L Chloride 106 (98-107) mEq/L Carbon Dioxide 23 (23-29) mEq/L BUN 30 H (8-23) mg/dL Creatinine 2.20 H (0.70-1.30) mg/dL Est GFR ( Amer) 36 L (> 60) Est GFR (Non-Af Amer) 30 L (> 60) BUN/Creatinine Ratio 14 (6-26) Glucose 113 H (70-105) mg/dL Est Mean Plasma Glucose 171 mg/dl Hemoglobin A1c 7.6 H ( - 5.6) % Calculated Osmolality 291 (280-300) Calcium 9.3 (8.6-10.3) mg/dL Total Bilirubin 0.2 L (0.3-1.0) mg/dL Direct Bilirubin 0.0 (0.0-0.2) mg/dL Indirect Bilirubin 0.2 (0.0-1.2) mg/dL AST 13 (13-39) Units/L ALT 13 (7-52) Units/L Alkaline Phosphatase 82 (34-104) Units/L Troponin I (< 0.04) ng/mL Serum Total Protein 6.8 (6.4-8.9) g/dL Albumin 3.9 (3.5-5.7) g/dL Globulin 2.9 (2.4-3.5) g/dL Albumin/Globulin Ratio 1.3 (1.1-2.2) Lipase 35 (11-82) Units/L Urine Color (Yellow) Urine Clarity (Clear) Urine pH (5.0-8.0) pH Units Ur Specific [place] (1.010-1.025) Urine Protein (Neg-Trace) mg/dL Urine Glucose (UA) (Normal) mg/dL Urine Ketones (Negative) mg/dL Urine Blood (Negative) Urine Nitrite (Negative) Urine Bilirubin (Negative) Urine Urobilinogen (Normal) mg/dL Ur Leukocyte Esterase (Negative) Urine Microscopic RBC (0-3) per hpf Urine Microscopic WBC (0-3) per hpf Ur Squamous Epith Cells (None-Few) per lpf Urine Bacteria (None-Few) per hpf Hyaline Casts (None-Few) per lpf Ur Culture Indicated? (NO) 10/16/17 10/16/17 Range/Units 12:27 14:48 WBC (4.3-11.1) K/mcL RBC (4.19-5.50) M/mcL Hgb (12.9-16.9) g/dL Hct (37.5-50.1) % MCV (83.0-100.0) fL MCH (28.0-33.3) pg MCHC (31.6-35.5) g/dL RDW (11.5-14.5) % Plt Count (140-400) K/mcL MPV (9.4-12.4) fL Immature Gran % (0-4) % Seg Neutrophils % % Lymphocytes % % Monocytes % % Eosinophils % % Basophils % % Neutrophils # (1.6-8.9) K/mcL Lymphocytes # (0.6-4.6) K/mcL Monocytes # (0.0-1.3) K/mcL Eosinophils # (0.0-0.6) K/mcL Basophils # (0.0-0.2) K/mcL Sodium (136-145) mEq/L Potassium (3.5-5.1) mEq/L Chloride (98-107) mEq/L Carbon Dioxide (23-29) mEq/L BUN (8-23) mg/dL Creatinine (0.70-1.30) mg/dL Est GFR ( Amer) (> 60) Est GFR (Non-Af Amer) (> 60) BUN/Creatinine Ratio (6-26) Glucose (70-105) mg/dL Est Mean Plasma Glucose mg/dl Hemoglobin A1c ( - 5.6) % Calculated Osmolality (280-300) Calcium (8.6-10.3) mg/dL Total Bilirubin (0.3-1.0) mg/dL Direct Bilirubin (0.0-0.2) mg/dL Indirect Bilirubin (0.0-1.2) mg/dL AST (13-39) Units/L ALT (7-52) Units/L Alkaline Phosphatase (34-104) Units/L Troponin I < 0.03 (< 0.04) ng/mL Serum Total Protein (6.4-8.9) g/dL Albumin (3.5-5.7) g/dL Globulin (2.4-3.5) g/dL Albumin/Globulin Ratio (1.1-2.2) Lipase (11-82) Units/L Urine Color Yellow (Yellow) Urine Clarity Turbid A (Clear) Urine pH 6.0 (5.0-8.0) pH Units Ur Specific [place] 1.014 (1.010-1.025) Urine Protein 100 H (Neg-Trace) mg/dL Urine Glucose (UA) Normal (Normal) mg/dL Urine Ketones Negative (Negative) mg/dL Urine Blood Small H (Negative) Urine Nitrite Positive A (Negative) Urine Bilirubin Negative (Negative) Urine Urobilinogen Normal (Normal) mg/dL Ur Leukocyte Esterase Large H (Negative) Urine Microscopic RBC 15-30 H (0-3) per hpf Urine Microscopic WBC TNTC H (0-3) per hpf Ur Squamous Epith Cells Moderate H (None-Few) per lpf Urine Bacteria Many H (None-Few) per hpf Hyaline Casts None Seen (None-Few) per lpf Ur Culture Indicated? YES A (NO) - Radiology Data Radiology results reviewed: Yes I reviewed the patient's radiology results. Chest X-Ray 10/16/17 12:23 IMPRESSION: Mild left basilar atelectasis. D/ / Osiris Rodriguez MD / Osiris Rodriguez MD Interpreting Provider: Osiris Rodriguez MD Gallbladder Ultrasound 10/16/17 13:49 IMPRESSION: 6 mm stone in the mid right kidney. No hydronephrosis D/ / Osiris Rodriguez MD / Osiris Rodriguez MD Interpreting Provider: Osiris Rodriguez MD - EKG Data EKG #1 EKG attestation: Yes I reviewed and interpreted this EKG. EKG results narrative: EKG on 10/16/2017 at 12:30 shows sinus rhythm with heart rate of 73. [place] interval 177. QT 480. QTC 419. No ST elevation or depression. Attestation Statement - Attestation Attestation: I examined this patient and my medical decision-making was reviewed with the Resident Physician, Dr. Chin. I agree with the documented findings, disposition and treatment plan as described except to the extent set forth below. Patient is a 67-year-old white male with a history of prostates CA has been treated at [facility] who developed subsequent bilateral ureteral scarring and stricture requiring bilateral nephrostomy tubes. Patient is here today for evaluation of one month history of gradually worsening right flank and right upper quadrant abdominal pain. Patient has had his nephrostomy tubes changed as recently as the beginning of September 14 been the second time following a bout of pyelonephritis that the patient was hospitalized for. Patient states ever since the tubes were replaced these had ongoing pain that has gradually worsened associated with nausea. Patient states within 24 hours of coming home after tube placement he did spike a temperature at that time but this resolved within 24 hours and he subsequently had CT imaging of his abdomen and pelvis in regards to cancer follow-up at [facility] following tube placement which was within normal limits. Patient complains of worsening right upper quadrant abdominal pain associated with nausea and over the past week has noticed worsening symptoms after eating. Patient denies any recent fevers or chills, no chest pain pressure or heaviness, no shortness of breath no urinary symptoms associated with flank pain no other associated complaints. I agree with patient's physical exam findings as documented. Patient was hypertensive on arrival but quite uncomfortable with pain. Patient received pain medications and nausea medicines placed on cardiac monitoring EKG was normal sinus without acute ischemia. Patient's chest x-ray was unremarkable. Patient's lab evaluation was within normal limits with the exception of the presence of a UTI suspicious for pyelonephritis with his severity flank pain. White count is within normal limits. Due to patient's right upper quadrant tenderness we sent him for a gallbladder ultrasound which came back within normal limits and it was also commented in the report that there is no evidence of [place] but there was a 6 mm kidney stone within the right kidney. I do not feel he needed to pursue CT imaging at this point since there is no evidence of [place] on the ultrasound. And patient had a recent CT abdomen and pelvis that was normal. Patient's symptoms concerning for pyelonephritis which may require nephrostomy tube changing. Patient will be started on IV antibiotics and has required ongoing pain control throughout ED course with minimal improvement. Patient's vital signs remained stable with a stable blood pressure. Case was discussed with hospitalist and nephrology and urology were consulate to see the patient during his hospitalization.
[2017-10-16 13:42] LABS: Basophils % 0.6 %; Eosinophils # 0.3 K/mcL (0.0-0.6); Eosinophils % 4.3 %; Hematocrit 34.2 % (37.5-50.1); Hemoglobin 11.5 g/dL (12.9-16.9); Immature Granulocytes % 0.5 % (0-4); Lymphocytes # 0.9 K/mcL (0.6-4.6); Lymphocytes % 13.6 %; Mean Corpuscular HGB Conc 33.6 g/dL (31.6-35.5); Mean Corpuscular Hemoglobin 30.6 pg (28.0-33.3); Mean Platelet Volume 8.9 fL (9.4-12.4); Monocytes # 0.5 K/mcL (0.0-1.3); Monocytes % 8.5 %; Neutrophils # 4.6 K/mcL (1.6-8.9); Platelet Count 329 K/mcL (140-400); Red Blood Count 3.76 M/mcL (4.19-5.50); Red Cell Distribution Width 12.7 % (11.5-14.5); Segmented Neutrophils % 72.5 %
[2017-10-16 13:43] LABS: Albumin 3.9 g/dL (3.5-5.7); Albumin/Globulin Ratio 1.3 (1.1-2.2); Bilirubin,Indirect 0.2 mg/dL (0.0-1.2); Bilirubin,Total 0.2 mg/dL (0.3-1.0); Calcium 9.3 mg/dL (8.6-10.3); Globulin 2.9 g/dL (2.4-3.5); Potassium 4.2 mEq/L (3.5-5.1); Total Protein 6.8 g/dL (6.4-8.9)
[2017-10-16 15:03] LABS: Bilirubin,Urine Negative (Negative); Blood,Urine Small (Negative); Clarity,Urine Turbid (Clear); Color,Urine Yellow (Yellow); Glucose,Urine (UA) Normal (Normal); Ketones,Urine Negative (Negative); Leukocyte Esterase,Urine Large (Negative); Nitrite,Urine Positive (Negative); Protein,Urine 100 mg/dL (Neg-Trace); Specific Gravity,Urine 1.014 (1.010-1.025); Urobilinogen,Urine Normal (Normal)
[2017-10-16 15:04] LABS: Bacteria,Urine Many per hpf (None-Few); Hyaline Casts,Urine None Seen per lpf (None-Few); RBC,Urine 15-30 per hpf (0-3); Squamous Epithelial Cell,Urine Moderate per lpf (None-Few); WBC,Urine TNTC per hpf (0-3)
[2017-10-16] MEDS ORDERED: Ondansetron 4 MG/2 ML VIAL ONE (17:21)
[2017-10-16] MEDS ORDERED: *HR* Promethazine 25 MG/ML VIAL IVP ONE (17:35)
[2017-10-16] MEDS ORDERED: Piperacillin/Tazobactam 3.375 GM in 0.9 % Sodium Chloride Mini Bag 100 ML IVP ONE (17:59)
[2017-10-16] MEDS ORDERED: Ondansetron 4 MG/2 ML VIAL IVP PRN (17:59)
[2017-10-16] MEDS ORDERED: Dextrose Gel 15 GM/37.5 ML TUBE PO PRN ×2 (18:02)
[2017-10-16] MEDS ORDERED: *HR* Dextrose 50 % in Water (Syg) 50 ML SYRINGE IVP PRN (18:02)
[2017-10-16] MEDS ORDERED: D5% in Water 1,000 ML IVC PRN (18:02)
[2017-10-16] MEDS ORDERED: Naloxone 0.4 MG/ML INJ IVP PRN (18:04)
--- NOTE | 2017-10-16 18:22 | Internal Med History&Physical ---
Date of Encounter: 10/16/17 Time of Encounter: 18:08 Internal Medicine - H&P: HPI Chief complaint: RUQ pain Admitted From: Home Plans for Post Hospital Care: Home History of present illness: Mr. Rivera is a 67 year old male Mr. Rivera is a 67 year old male with a history of prostate cancer, bilateral nephrostomy tube, hypertension, DMII and a history of recurrent complicated UTI who lpresented to ER for worsening URQ pain for 3 days. Pain is located to RUQ, 10/10, sharp constant, radiating to the back, associated chills, nausea and vomiting. He was ;diagnosed of prostate cnacer in 2015, determined to be locally invasive and had completed local radiation therapy/ADT to prostate in October 2016. His oncologic history has been complicated by post renal obstruction status post bilateral nephrostomy tubes in 03/2017. He had b/l nephrostomy tube changed on 09/05, after that, he developed severe RUQ pain, since then he has been on and off in pain. The right nephrostomy tube waas changed on 09/18 agaain, but did not help the pain. Over the last 3 days, pain became worse and constant, associated with chills. He was at [facility] on 10/05, had a bone scan that showed no metastasis. He also had a CT of his chest and abdomen and pelvis which showed no abnormalities. They state nephrostomy tubes appeared to be placed correctly. He denies any hematuria. In ER he is afebrile , normal VS, labs are unremarkable. PE severe RCVA tenderness. UA showed UTI.CXR showed Mild left basilar atelectasis. RUQ US showed Gallbladder is unremarkable without evidence of pericholecystic fluid, wall thickening or stones. Negative sonographic Gregg's sign. Common bile duct is within normal limits measuring 4 mm. RIGHT KIDNEY: 6 mm stone mid right kidney. No hydronephrosis. patient is going to be admitted for possible right pyelonephritis, will start zosyn and vancomycin. Urology was called by ER physician. Pain control. He is full code Past Med Surg Social Fam HX - Past Medical History Medical history: cancer, diabetes, hyperlipidemia, hypertension, other Additional medical history: prostate (last radiation 2016) Psychiatric history: depression - Past Surgical History Surgical History: orthopedic, other, ureteral stent, other Additional surgical history: left knee replacement, carpal tunnel surgery, bilateral nephro tube - Social History Smoking Status: Never smoker Smokeless Tobacco Status: No Alcohol use: none Drug use: none - Family History Father Family Member Ethnicity: Non- Living Status: Hx Family Cardiac Disorders: No Hx Family Respiratory Disorders: No Hx Family Cancer: Yes (Colon) Hx Family GI Disorders: No Hx Family Endocrine Disorder: Yes (Diabetes) Hx Family Neuromuscular Disorders: No Hx Family Neurologic Disorders: No Hx Family HEENT Disorders: No Hx Family Autoimmune Disorders: No Brother Family Member Ethnicity: Non- Living Status: Hx Family Cancer: Yes (Colon and lung) Mother Family Member Ethnicity: Non- Living Status: Sister Family Member Ethnicity: Non- Living Status: Still Living Hx Family Endocrine Disorder: Yes (DM) Internal Medicine - H&P: Meds Insulin DETEMIR [Levemir] 30 unit SQ HS 30 Days [id number] 01/19/16 [Rx] Sertraline [Zoloft] 25 mg PO DAILY 04/13/16 [History] Insulin ASPART [Novolog Flexpen] 10 - 15 unit SQ TID 11/17/16 [History] Diltiazem CD (24hr) [Cardizem CD] 240 mg PO DAILY 12/15/16 [History] Lactobacillus Combination No.9 [Adult 50 + Probiotic] 1 cap PO DAILY 03/19/17 [ History] Ondansetron HCl [Zofran] 8 mg PO DAILY PRN 03/19/17 [History] Multivit-Min/FA/Lycopen/Lutein [Centrum Silver Men Tablet] 1 tab PO DAILY [History] Esomeprazole Magnesium [Nexium 24Hr] 20 mg PO DAILY 06/06/17 [History] Docusate Sodium [Dok] 100 mg PO DAILY PRN 06/07/17 [History] Gabapentin [Neurontin] 100 mg PO DAILY 10/16/17 [History] Losartan [Cozaar] 25 mg PO BID 10/16/17 [History] Tramadol HCl [Ultram] 50 mg PO Q6H PRN 10/16/17 [History] 3 Allergy/AdvReac Type Severity Reaction Status Date / Time tegaderm AdvReac Blister Uncoded 10/16/17 16:06 All Systems PM: A 10-system review of systems was performed and is negative for pertinent findings except as documented above in the HPI. - Constitutional Constitutional: as per HPI - Constitutional Vitals: Temp Pulse Resp BP Pulse Ox 97.5 F L 88 16 155/88 97 10/16/17 12:14 10/16/17 16:37 10/16/17 16:37 10/16/17 16:37 10/16/17 16:37 General appearance: Present: A&O X 3, obese Exam: CONSTITUTIONAL: Patient appears as an age appropriate male well developed, in no acute distress. EYES Clear sclerae, bilateral pupils are equal, reactive to light and accommodation. Extraocular movements are intact RESPIRATORY: No accessory muscle use, bilateral clear to auscultation, no wheezing, no crackles/rales. CARDIOVASCULAR: Regular heart rate, normal S1 and S2, no murmurs GASTROINTESTINAL: bowel sounds present, soft, no tenderness. No hepatosplenomegaly. Right CVA has severe tenderness MUSCULOSKELETAL: Joints in normal range of motion, no clubbing, + edema, no cyanosis. Bilateral peripheral pulses 2+ LYMPHATIC no lymphadenopathy in neck, groin and axilla bilaterally, no thyromegaly. NEUROLOGIC: CN II to XII are grossly intact, no focal neurological deficit. Deep tendon reflexes 2+ bilaterally. Normal light touch sensation to upper and lower extremity PSYCHIATRIC: Oriented x3, with good insight, mood is euthymic. No hallucinations or delusions. SKIN: Skin warm and dry, no rashes, no open wound. Internal Med - H&P Results - Labs CBC & Chem 7: 10/16/17 12:21 10/16/17 12:21 - Assessment and plan (1) Right flank pain Current Visit: Yes Status: Acute Assessment and plan: Right upper quadrant and flank pain differentiation including right pyelonephritis, complicated UTI, biliary colic, but RUQ US was negative for stone and infection, will do HIDA scan give IV vancomycina nd zosyn for possible pyelonepritis (2) Right kidney stone Current Visit: Yes Status: Acute Assessment and plan: right kidney stone, non-obstructing, urology was consulted by ER physician, no hematuria (3) Chronic kidney disease, stage III (moderate) Current Visit: Yes Status: Chronic Assessment and plan: CKD III, Cr has been stable, contineu home meds (4) Complicated UTI (urinary tract infection) Current Visit: Yes Status: Acute Assessment and plan: due to b/l nephrostomy tubes, urine culture and blood culture are done continue IV ATB (5) Constipation due to opioid therapy Current Visit: Yes Status: Chronic Assessment and plan: continue colace, add miralax scheduled patient has distended abdomen, will check KUB (6) DVT prophylaxis Current Visit: No Status: Acute Assessment and plan: heparin SC (7) Nausea & vomiting Current Visit: No Status: Acute Assessment and plan: IV zofran, check KUB to r/o obstruction, constipation Qualifiers: Vomiting type: unspecified Vomiting Intractability: unspecified Qualified Code(s): R11.2 - Nausea with vomiting, unspecified (8) Prostate cancer Current Visit: Yes Status: Chronic Assessment and plan: He was diagnosed of prostate cancer in 2015, determined to be locally invasive and had completed local radiation therapy/ADT to prostate in October 2016. His oncologic history has been complicated by post renal obstruction status post bilateral nephrostomy tubes in 03/2017. He had b/l nephrostomy tube changed on 09/05, after that, he developed severe RUQ pain, since then he has been on and off in pain. The right nephrostomy tube waas changed on 09/18 again, but did not help the pain. consult urology (9) Ureteral obstruction Current Visit: Yes Status: Chronic Assessment and plan: s/p b/l nephrostomy tube placement, had recent CT on 10/05 at [facility]. 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 of 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 (11) GERD (gastroesophageal reflux disease) Current Visit: Yes Status: Chronic Assessment and plan: contnue PPI Qualifiers: Esophagitis presence: esophagitis presence not specified Qualified Code(s) : K21.9 - Gastro-esophageal reflux disease without esophagitis (12) HTN (hypertension) Current Visit: Yes Status: Chronic Assessment and plan: continue home meds Qualifiers: Hypertension type: essential hypertension Qualified Code(s): I10 - Essential (primary) hypertension (13) Intractable nausea and vomiting Current Visit: Yes Status: Acute Assessment and plan: supportive care, check KUB to r/o onstruction Qualifiers: Vomiting type: unspecified Qualified Code(s): R11.2 - Nausea with vomiting , unspecified - Time Spent With Patient Total time spent is greater than 50% in coordination of care (as documented) at patient's floor/unit and/or counseling patient: Greater than 35 minutes
[2017-10-16 18:23] LABS: Estimated Average Glucose 171 mg/dl; Hemoglobin A1C 7.6 %
[2017-10-16] MEDS ORDERED: *HR* Heparin 5,000 UNIT/ML VIAL SQ SCH (18:30)
[2017-10-16] MEDS: Insulin LISPRO 300 UNITS/3 ML VIAL SQ SCH ×2 (19:34→22:01)
[2017-10-16] MEDS: 0.9 % Sodium Chloride 1,000 ML IVC SCH (21:35)
[2017-10-16] MEDS: Insulin DETEMIR 100 UNIT/ML X5UNITS SQ SCH (22:02)
[2017-10-16] MEDS: *HR* Heparin 5,000 UNIT/ML VIAL SQ SCH (22:06)
[2017-10-17 02:41] LABS: Basophils % 0.2 %; Eosinophils # 0.1 K/mcL (0.0-0.6); Eosinophils % 0.4 %; Hematocrit 31.1 % (37.5-50.1); Hemoglobin 10.3 g/dL (12.9-16.9); Immature Granulocytes % 0.7 % (0-4); Lymphocytes # 0.5 K/mcL (0.6-4.6); Mean Corpuscular HGB Conc 33.1 g/dL (31.6-35.5); Mean Corpuscular Hemoglobin 30.1 pg (28.0-33.3); Mean Corpuscular Volume 90.9 fL (83.0-100.0); Mean Platelet Volume 8.8 fL (9.4-12.4); Monocytes # 0.5 K/mcL (0.0-1.3); Monocytes % 4.3 %; Platelet Count 271 K/mcL (140-400); Red Blood Count 3.42 M/mcL (4.19-5.50); Red Cell Distribution Width 13.1 % (11.5-14.5); Segmented Neutrophils % 90.4 %
[2017-10-17 03:17] LABS: Calcium 8.6 mg/dL (8.6-10.3); Potassium 4.5 mEq/L (3.5-5.1)
[2017-10-17] MEDS: *HR* Heparin 5,000 UNIT/ML VIAL SQ SCH ×3 (04:01→22:02)
[2017-10-17] MEDS: Insulin LISPRO 300 UNITS/3 ML VIAL SQ SCH ×4 (08:02→21:52)
--- NOTE | 2017-10-17 08:07 | Urology - Consult Note ---
<Vero Madden N - Last Filed: 10/17/17 08:04> Date of Encounter: 10/17/17 Time of Encounter: 08:04 - Assessment and Plan (1) Complicated UTI (urinary tract infection) Current Visit: Yes Status: Acute Assessment and plan: Patient is a 67 year old male who presents with a urinary tract infection. Patient has a known history for recurrent UTI. Urine culture and blood cultures are pending. Patient has been placed on Vancomycin and Zosyn prophylactically. (2) Right kidney stone Current Visit: Yes Status: Acute Assessment and plan: Patient is a 67 year old male who presents with a 6-7mm right renal stone. Patient states he underwent a reassuring CT scan of the abdomen and pelvis on at [facility]. Patient reports his pain has worsened since that time. CT with stone protocol was discussed with Dr. Saravia. Will notify Dr. Saravia of recent study and repeat if necessary. Urology CN:HPI Consult date: 10/17/17 Reason for consult Urology: Other (UTI, prostate cancer, RUQ pain) History of present illness: Patient is a 67 year old male who presents with a history of prostate cancer and obstructive uropathy with bilateral nephrostomy tube placement. The patient presented to the emergency department with complaints of worsening RUQ pain after nephrostomy tubes were changed on 09/05/17 and repositioned again on . The patient states RUQ pain has been persistent but acutely worsened on , which ultimately brought the patient to the emergency department. The patient underwent radiation at [facility] for prostate cancer and is currently co- managed by Dr. Moon, [facility], who ordered a CT scan on 10/05/17 to evaluate the patient's pain. The patient's states Dr. Moon reviewed this CT scan and reassured that there were no abnormalities or metastasis. Plain films suggest 7mm right ureteral stone, while RUQ ultrasound suggests 6mm right mid-pole renal stone. Patient states knowing that he had an existing renal stone but is unsure which kidney. Patient denies family history of renal stones. Urinaylsis is positive for urinary tract infection in ED. Patient denies dysuria, fever, chills, diaphoresis, hematuria. Past Med Surg Social Fam HX - Past Medical History Medical history: cancer, diabetes, hyperlipidemia, hypertension, other Additional medical history: prostate (last radiation 2016) Psychiatric history: depression - Past Surgical History Surgical History: orthopedic, other, ureteral stent, other Additional surgical history: left knee replacement, carpal tunnel surgery, bilateral nephro tube - Social History Smoking Status: Never smoker Smokeless Tobacco Status: No Alcohol use: none Drug use: none - Family History Father Family Member Ethnicity: Non- Living Status: Hx Family Cardiac Disorders: No Hx Family Respiratory Disorders: No Hx Family Cancer: Yes (Colon) Hx Family GI Disorders: No Hx Family Endocrine Disorder: Yes (Diabetes) Hx Family Neuromuscular Disorders: No Hx Family Neurologic Disorders: No Hx Family HEENT Disorders: No Hx Family Autoimmune Disorders: No Brother Family Member Ethnicity: Non- Living Status: Hx Family Cancer: Yes (Colon and lung) Mother Family Member Ethnicity: Non- Living Status: Sister Family Member Ethnicity: Non- Living Status: Still Living Hx Family Endocrine Disorder: Yes (DM) Medications and Allergies Insulin DETEMIR [Levemir] 30 unit SQ HS 30 Days [id number] 01/19/16 [Rx] Sertraline [Zoloft] 25 mg PO DAILY 04/13/16 [History] Insulin ASPART [Novolog Flexpen] 10 - 15 unit SQ TID 11/17/16 [History] Diltiazem CD (24hr) [Cardizem CD] 240 mg PO DAILY 12/15/16 [History] Lactobacillus Combination No.9 [Adult 50 + Probiotic] 1 cap PO DAILY 03/19/17 [ History] Ondansetron HCl [Zofran] 8 mg PO DAILY PRN 03/19/17 [History] Multivit-Min/FA/Lycopen/Lutein [Centrum Silver Men Tablet] 1 tab PO DAILY [History] Esomeprazole Magnesium [Nexium 24Hr] 20 mg PO DAILY 06/06/17 [History] Docusate Sodium [Dok] 100 mg PO DAILY PRN 06/07/17 [History] Gabapentin [Neurontin] 100 mg PO DAILY 10/16/17 [History] Losartan [Cozaar] 25 mg PO BID 10/16/17 [History] Tramadol HCl [Ultram] 50 mg PO Q6H PRN 10/16/17 [History] 3 Allergy/AdvReac Type Severity Reaction Status Date / Time tegaderm AdvReac Blister Uncoded 10/16/17 16:06 Review of Systems - Constitutional no chills, no fever(s) - EENT Nose, mouth and throat: no dizziness, no headache(s) - Cardiovascular no chest pain, no diaphoresis, no dyspnea - Respiratory no cough, no dyspnea - Gastrointestinal abdominal pain, nausea, vomiting, no change in bowel habits - Genitourinary no change in urinary stream, no dysuria, no flank pain, no hematuria, no urinary frequency, no urinary hesitancy, no urinary urgency - Musculoskeletal no back pain, no muscle weakness - Integumentary no erythema, no rash - Neurological no confusion, no sensory deficit, no syncope - Psychiatric no anxiety, no confusion Exam Initial Vital Signs Temp Pulse Resp BP Pulse Ox 97.5 F L 76 18 174/83 98 10/16/17 12:00 10/16/17 12:00 10/16/17 12:00 10/16/17 12:00 10/16/17 12:00 - General physical appearance Present: well developed, no distress, moderate pain - Eyes Present: PERRL, normal ocular movement - ENT Present: no hearing loss, no congestion - Neck Present: no masses, trachea midline - Respiratory Present: normal respiratory effort - Cardiovascular Cardiovascular exam IM: RRR - Abdomen Abdomen: Present: soft, tender (RUQ) - Genitourinary other (Bilateral nephrostomy tubes secured and draining clear urine bilaterally ) - Integumentary Present: no rash, no abnormal pigmentation - Neurologic Present: normal coordination. Absent: disoriented Urology Results - Labs 10/17/17 02:24 10/17/17 02:24 Abnormal lab results WBC 12.2 K/mcL (4.3-11.1) H D 10/17/17 02:24 RBC 3.42 M/mcL (4.19-5.50) L 10/17/17 02:24 Hgb 10.3 g/dL (12.9-16.9) L 10/17/17 02:24 Hct 31.1 % (37.5-50.1) L 10/17/17 02:24 MPV 8.8 fL (9.4-12.4) L 10/17/17 02:24 Neutrophils # 11.0 K/mcL (1.6-8.9) H 10/17/17 02:24 Lymphocytes # 0.5 K/mcL (0.6-4.6) L 10/17/17 02:24 Carbon Dioxide 20 mEq/L (23-29) L 10/17/17 02:24 BUN 31 mg/dL (8-23) H 10/17/17 02:24 Creatinine 2.64 mg/dL (0.70-1.30) H 10/17/17 02:24 Est GFR ( Amer) 29 (> 60) L 10/17/17 02:24 Est GFR (Non-Af Amer) 24 (> 60) L 10/17/17 02:24 Glucose 152 mg/dL (70-105) H 10/17/17 02:24 POC Glucose 158 mg/dL (70-99) H 10/16/17 20:06 Hemoglobin A1c 7.6 % (-5.6) H 10/16/17 12:21 Total Bilirubin 0.2 mg/dL (0.3-1.0) L 10/16/17 12:21 Urine Clarity Turbid (Clear) A 10/16/17 14:48 Urine Protein 100 mg/dL (Neg-Trace) H 10/16/17 14:48 Urine Blood Small (Negative) H 10/16/17 14:48 Urine Nitrite Positive (Negative) A 10/16/17 14:48 Ur Leukocyte Esterase Large (Negative) H 10/16/17 14:48 Urine Microscopic RBC 15-30 per hpf (0-3) H 10/16/17 14:48 Urine Microscopic WBC TNTC per hpf (0-3) H 10/16/17 14:48 Ur Squamous Epith Cells Moderate per lpf (None-Few) H 10/16/17 14:48 Urine Bacteria Many per hpf (None-Few) H 10/16/17 14:48 Ur Culture Indicated? YES (NO) A 10/16/17 14:48 Diabetes panel 10/17/17 Range/Units 02:24 Sodium 136 (136-145) mEq/L Potassium 4.5 (3.5-5.1) mEq/L Chloride 106 (98-107) mEq/L Carbon Dioxide 20 L (23-29) mEq/L BUN 31 H (8-23) mg/dL Creatinine 2.64 H (0.70-1.30) mg/dL Glucose 152 H (70-105) mg/dL Calcium 8.6 (8.6-10.3) mg/dL Calcium panel 10/17/17 Range/Units 02:24 Calcium 8.6 (8.6-10.3) mg/dL Pituitary panel 10/17/17 Range/Units 02:24 Sodium 136 (136-145) mEq/L Potassium 4.5 (3.5-5.1) mEq/L Chloride 106 (98-107) mEq/L Carbon Dioxide 20 L (23-29) mEq/L BUN 31 H (8-23) mg/dL Creatinine 2.64 H (0.70-1.30) mg/dL Glucose 152 H (70-105) mg/dL Calcium 8.6 (8.6-10.3) mg/dL Adrenal panel 10/17/17 Range/Units 02:24 Sodium 136 (136-145) mEq/L Potassium 4.5 (3.5-5.1) mEq/L Chloride 106 (98-107) mEq/L Carbon Dioxide 20 L (23-29) mEq/L BUN 31 H (8-23) mg/dL Creatinine 2.64 H (0.70-1.30) mg/dL Glucose 152 H (70-105) mg/dL Calcium 8.6 (8.6-10.3) mg/dL All other labs normal. - Imaging Abdominal x-ray: report reviewed, image reviewed US - abdomen: report reviewed, image reviewed Consult Discharge Plan - Plan Referrals: Saleem Ramirez DO [Primary Care Provider] - <Martin Saravia - Last Filed: 10/17/17 20:46> Date of Encounter: 10/17/17 - Assessment and Plan (1) Right flank pain Current Visit: Yes Status: Acute Assessment and plan: Patient seen in conjunction with physician assistant production manager. Was my decision to proceed with a CT scan because symptoms have changed since his prior imaging. On further questioning the patient reports that his nephrostomy tube was changed earlier in the summer and the procedure was significantly uncomfortable. He was in extreme discomfort and the nephrostomy tube was exchanged because of his symptoms in late August.. Although the pain decreased he continues to have significant discomfort in his right upper abdomen that seems to transmit around to his flank. This resulted in nausea and an inability to get comfortable. I personally reviewed the CT scan and do not see an obvious etiology for the discomfort. Both nephrostomy tubes are in good position. He does have a larger lower pole right renal stone but it does not appear to be obstructing. Limited options based on the CT scan. We discussed removing the nephrostomy tube but I suspect his kidney will obstruct. We discussed antegrade ureteral stent but he is already failed ureteral stents. I do not feel these options are viable. We discussed exchanging the nephrostomy tube but this did not improve his pain last month. I also discussed performing an antegrade stone removal and placement of a different type of nephrostomy tube such as a Malecot reentry nephrostomy tube. Although I do not feel this option has a high potential to decrease his pain may be reasonable if all other options are exhausted. We'll reassess patient in the morning Exam Initial Vital Signs Temp Pulse Resp BP Pulse Ox 97.5 F L 76 18 174/83 98 10/16/17 12:00 10/16/17 12:00 10/16/17 12:00 10/16/17 12:00 10/16/17 12:00 Urology Results - Labs 10/17/17 02:24 10/17/17 02:24 Abnormal lab results WBC 12.2 K/mcL (4.3-11.1) H D 10/17/17 02:24 RBC 3.42 M/mcL (4.19-5.50) L 10/17/17 02:24 Hgb 10.3 g/dL (12.9-16.9) L 10/17/17 02:24 Hct 31.1 % (37.5-50.1) L 10/17/17 02:24 MPV 8.8 fL (9.4-12.4) L 10/17/17 02:24 Neutrophils # 11.0 K/mcL (1.6-8.9) H 10/17/17 02:24 Lymphocytes # 0.5 K/mcL (0.6-4.6) L 10/17/17 02:24 Carbon Dioxide 20 mEq/L (23-29) L 10/17/17 02:24 BUN 31 mg/dL (8-23) H 10/17/17 02:24 Creatinine 2.64 mg/dL (0.70-1.30) H 10/17/17 02:24 Est GFR ( Amer) 29 (> 60) L 10/17/17 02:24 Est GFR (Non-Af Amer) 24 (> 60) L 10/17/17 02:24 Glucose 152 mg/dL (70-105) H 10/17/17 02:24 POC Glucose 158 mg/dL (70-99) H 10/16/17 20:06 Hemoglobin A1c 7.6 % (-5.6) H 10/16/17 12:21 Total Bilirubin 0.2 mg/dL (0.3-1.0) L 10/16/17 12:21 Urine Clarity Turbid (Clear) A 10/16/17 14:48 Urine Protein 100 mg/dL (Neg-Trace) H 10/16/17 14:48 Urine Blood Small (Negative) H 10/16/17 14:48 Urine Nitrite Positive (Negative) A 10/16/17 14:48 Ur Leukocyte Esterase Large (Negative) H 10/16/17 14:48 Urine Microscopic RBC 15-30 per hpf (0-3) H 10/16/17 14:48 Urine Microscopic WBC TNTC per hpf (0-3) H 10/16/17 14:48 Ur Squamous Epith Cells Moderate per lpf (None-Few) H 10/16/17 14:48 Urine Bacteria Many per hpf (None-Few) H 10/16/17 14:48 Ur Culture Indicated? YES (NO) A 10/16/17 14:48 Diabetes panel 10/17/17 Range/Units 02:24 Sodium 136 (136-145) mEq/L Potassium 4.5 (3.5-5.1) mEq/L Chloride 106 (98-107) mEq/L Carbon Dioxide 20 L (23-29) mEq/L BUN 31 H (8-23) mg/dL Creatinine 2.64 H (0.70-1.30) mg/dL Glucose 152 H (70-105) mg/dL Calcium 8.6 (8.6-10.3) mg/dL Calcium panel 10/17/17 Range/Units 02:24 Calcium 8.6 (8.6-10.3) mg/dL Pituitary panel 10/17/17 Range/Units 02:24 Sodium 136 (136-145) mEq/L Potassium 4.5 (3.5-5.1) mEq/L Chloride 106 (98-107) mEq/L Carbon Dioxide 20 L (23-29) mEq/L BUN 31 H (8-23) mg/dL Creatinine 2.64 H (0.70-1.30) mg/dL Glucose 152 H (70-105) mg/dL Calcium 8.6 (8.6-10.3) mg/dL Adrenal panel 10/17/17 Range/Units 02:24 Sodium 136 (136-145) mEq/L Potassium 4.5 (3.5-5.1) mEq/L Chloride 106 (98-107) mEq/L Carbon Dioxide 20 L (23-29) mEq/L BUN 31 H (8-23) mg/dL Creatinine 2.64 H (0.70-1.30) mg/dL Glucose 152 H (70-105) mg/dL Calcium 8.6 (8.6-10.3) mg/dL All other labs normal.
[2017-10-17] MEDS: Lactobacillus 1 EACH CAP.SPRINK PO SCH (08:58)
[2017-10-17] MEDS: traMADol 50 MG TABLET PO PRN ×2 (08:58→17:10)
[2017-10-17] MEDS: Diltiazem CD (24hr) 240 MG CAPSULE PO SCH (08:58)
[2017-10-17] MEDS ORDERED: Gabapentin 100 MG CAPSULE PO SCH (09:00)
--- NOTE | 2017-10-17 14:04 | Internal Med Progress Note ---
Hospitalist Progress Note - Encounter Date of Encounter: 10/17/17 Time of Encounter: 09:30 - Subjective Interval History: improved right back and ruq pain. Now dull aching pain in RUQ, not associated with food. Denies fevers, chills, nausea or emesis. - Exam Vitals: Temp Pulse Resp BP Pulse Ox 97.9 F 85 14 124/74 96 10/17/17 13:57 10/17/17 13:57 10/17/17 13:57 10/17/17 13:57 10/17/17 13:57 Exam: General: awake, alert, appears stated age HEENT:EOM, pupils equal, round, moist mucus membranes, clear oropharynx Neck: supple, trachea midline Cardiovascular:regular rate and rhythm, normal S1 & S2, no rubs, murmurs or gallops. No JVD. no lower extremity edema Lungs:Normal breath sounds, no wheezes, or crackles. Normal respiratory effort Abdomen:Soft, non-tender, non-distended,+ bowel sounds MSK: + right cva tenderness on palpation Neurological: AAOx3, CN grossly intact, no focal deficits Skin:Normal color, no rash, no pallor, no jaundice - Assessment and Plan (1) Complicated UTI (urinary tract infection) Current Visit: Yes Status: Acute Assessment and Plan: Right Pyelonephritis Hx Recurrent UTIs -Ucx and bl cxs pending -Vanc with pharm to dose renally -Change zosyn to cefepime given prelim ucx result gram neg and worsening creat -given ? of obstructive stone on imaging Urology following, see below -monitor i/os -IVFs -prn pain control and anti emetic (2) Intractable nausea and vomiting Current Visit: Yes Status: Acute Assessment and Plan: Resolved since admission Pyelonephritis tx as above -KUB without obstruction (3) Right kidney stone Current Visit: Yes Status: Acute Assessment and Plan: 6-7 mm right renal stone -plain film notes 7 mm right ureteral stone while RUQ US shows 6 mm right mid pole of kidney stone -reviewed by Urology and believe renal stone at this time (4) Diabetes mellitus Current Visit: Yes Status: Chronic Assessment and Plan: Hx Diabetic Neuropahty -SSI and accu checks -cont levemir qhs -cont gabapentin (5) Constipation due to opioid therapy Current Visit: Yes Status: Chronic Assessment and Plan: cont miralax bid and colace -kub without obstruction (6) Acute kidney injury superimposed on chronic kidney disease Current Visit: No Status: Acute Assessment and Plan: creat most recently in August 2.6-3.14 on admit2.2 and increase to 2.64 -cont to monitor -pharm renally dosing meds -avoiding nephro toxic agents to best of ability -urology following and bl nephrostomy tubes appear in place and kideny stone appears to be renally located not in ureter -monitor i/os -IVFs (7) Prostate CA Current Visit: No Status: Chronic Assessment and Plan: reported outpt 10/05 CT scan per his oncologist without any mets per pt -will fu outpt with established onc upon dc -cont home tramadol (8) Chronic kidney disease, stage III (moderate) Current Visit: Yes Status: Chronic Assessment and Plan: plan as above (9) HTN (hypertension) Current Visit: Yes Status: Chronic Assessment and Plan: stable cont home cardizem and losartan -will have to consider holding losartan if creat cont to elevate (10) Anemia Current Visit: No Status: Acute Assessment and Plan: Chronic Anemia, stable Baseline Hgb is variable with most recent in july-august 2017 being 10.3-12.2 -cont to monitor for any signs of bleeding -transfuse if hgb <7 DVT Prophylaxis: Heparin sq - Time Spent with Patient Total time spent is greater than 50% in coordination of care (as documented) at patient's floor/unit and/or counseling patient: Greater than 35 minutes Plan of Care Discussed with: patient Internal Medicine: Result - Labs CBC & Chem 7: 10/17/17 02:24 10/17/17 02:24 Labs: Short CBC 10/17/17 Range/Units 02:24 WBC 12.2 H D (4.3-11.1) K/mcL Hgb 10.3 L (12.9-16.9) g/dL Hct 31.1 L (37.5-50.1) % Plt Count 271 (140-400) K/mcL Neutrophils # 11.0 H (1.6-8.9) K/mcL BMP 10/17/17 02:24 Sodium 136 Potassium 4.5 Chloride 106 Carbon Dioxide 20 L BUN 31 H Creatinine 2.64 H Glucose 152 H Calcium 8.6 Cardiac Enzymes 10/16/17 10/17/17 10/17/17 Range/Units 20:39 02:24 09:24 Troponin I < 0.03 < 0.03 < 0.03 (< 0.04) ng/mL - Impressions Impressions KUB X-Ray 10/16/17 18:32 IMPRESSION: Bilateral hinojosa the tubes are in place. Probable 7 mm right ureteral stone The findings were sent to the Radiology Results Communication Center at 10:18 pm on 10/16/2017to be communicated to a licensed caregiver. D/ / Alen Paul MD / Alen Paul MD Interpreting Provider: Alen Paul MD Abdomen/Pelvis CT 10/17/17 09:30 IMPRESSION: 1. No acute abnormality in the abdomen/pelvis. 2. Bilateral nephrostomy tubes in place. No hydronephrosis. 3. Stable appearance of the urinary bladder, which is diffusely indurated and decompressed. Findings are suspicious for ongoing cystitis. 4. Diverticulosis. D/ / 10/17/2017 10:22:27 Dominick Rodriguez MD / vilma Interpreting Provider: Dominick Rodriguez MD Consult Discharge Plan - Plan Referrals: Saleem Ramirez DO [Primary Care Provider] - (2) Intractable nausea and vomiting Qualifiers: Vomiting type: unspecified Qualified Code(s): R11.2 - Nausea with vomiting, unspecified (4) Diabetes mellitus Qualifiers: Diabetes mellitus type: type 2 Diabetes mellitus manager intermediate insulin use: with prison use Diabetes mellitus complication status: with kidney complications Diabetes mellitus complication detail: with chronic kidney disease Chronic kidney disease stage: stage 3 (moderate) Qualified Code(s): E11.22 - Type 2 diabetes mellitus with diabetic chronic kidney disease; N18.3 - Chronic kidney disease, stage 3 (moderate); Z79.4 - detention (current) use of insulin (9) HTN (hypertension) Qualifiers: Hypertension type: essential hypertension Qualified Code(s): I10 - Essential (primary) hypertension
[2017-10-17] MEDS: *HR* HYDROmorphone (PF) 1 MG/ML SYRINGE IVP PRN (14:06)
[2017-10-17] MEDS: Cefepime HCl 2,000 MG in Water for inj. (sterile) 20 ML 20 ML IVP SCH (17:10)
[2017-10-17] MEDS: 0.9 % Sodium Chloride 1,000 ML IVC SCH (21:48)
[2017-10-17] MEDS: Gabapentin 100 MG CAPSULE PO SCH (21:49)
[2017-10-17] MEDS: Insulin DETEMIR 100 UNIT/ML X5UNITS SQ SCH (21:53)
[2017-10-17] MEDS: Acetaminophen 325 MG TABLET PO PRN (22:01)
[2017-10-18] MEDS: traMADol 50 MG TABLET PO PRN ×4 (01:19→23:17)
[2017-10-18] MEDS: *HR* Heparin 5,000 UNIT/ML VIAL SQ SCH ×3 (04:18→21:04)
[2017-10-18 05:15] LABS: Basophils % 0.6 %; Eosinophils # 0.4 K/mcL (0.0-0.6); Eosinophils % 7.4 %; Hematocrit 31.4 % (37.5-50.1); Hemoglobin 10.3 g/dL (12.9-16.9); Immature Granulocytes % 0.6 % (0-4); Lymphocytes % 14.6 %; Mean Corpuscular HGB Conc 32.8 g/dL (31.6-35.5); Mean Corpuscular Hemoglobin 30.3 pg (28.0-33.3); Mean Corpuscular Volume 92.4 fL (83.0-100.0); Mean Platelet Volume 8.9 fL (9.4-12.4); Monocytes # 0.4 K/mcL (0.0-1.3); Monocytes % 8.6 %; Neutrophils # 3.5 K/mcL (1.6-8.9); Platelet Count 239 K/mcL (140-400); Red Cell Distribution Width 12.9 % (11.5-14.5); Segmented Neutrophils % 68.2 %
[2017-10-18 05:16] LABS: Lymphocytes # 0.7 K/mcL (0.6-4.6)
[2017-10-18 05:46] LABS: Calcium 8.4 mg/dL (8.6-10.3); Potassium 3.7 mEq/L (3.5-5.1)
--- NOTE | 2017-10-18 07:56 | Internal Med Progress Note ---
Hospitalist Progress Note - Encounter Date of Encounter: 10/18/17 Time of Encounter: 09:30 - Subjective Interval History: rather constant ruq and right flank pain today. having difficulty finding a position of comfort. at bedside. + right cva pain as well. Pain worse with movement, better with lying still. He does not assoicated worsened pain with eating/drinking. no referred pain to right shoulder. +supra pubic pain as well. notes that he does at times report same pain after eating, he also reports it when he has had nothing to eat. Not worse with spicy, fatty foods. No heart burn, indigestion, bloatedness or increased flatulence. He denies fevers or chills. No nausea or emesis. - Exam Vitals: Temp Pulse Resp BP Pulse Ox 97.7 F 70 16 150/84 95 10/18/17 07:50 10/18/17 07:50 10/18/17 07:50 10/18/17 07:50 10/18/17 07:50 Exam: General: awake, alert, appears stated age Cardiovascular:regular rate and rhythm, normal S1 & S2, no rubs, murmurs or gallops. No JVD. no lower extremity edema Lungs:Normal breath sounds, no wheezes, or crackles. Normal respiratory effort Abdomen:Soft, diffusely tender to palpation, no guarding or rebound, non- distended,+ bowel sounds, possible + richards given grimace to pain initially on palpation and throughout test MSK: + right cva tenderness on palpation, mild Neurological: AAOx3, CN grossly intact, no focal deficits Skin:Normal color, no rash, no pallor, no jaundice - Assessment and Plan (1) Complicated UTI (urinary tract infection) Current Visit: Yes Status: Acute Assessment and Plan: Right Pyelonephritis Hx Recurrent UTIs -Ucx ecoli, sensitivities reviewed with pharm -bl cxs pending -Vanc with pharm to dose renally--now dc'd with micro results -Cont cefepime -given ? of obstructive stone on imaging Urology following, see below -monitor i/os -IVFs -prn pain control and anti emetic (2) Intractable nausea and vomiting Current Visit: Yes Status: Resolved Assessment and Plan: Resolved since admission Pyelonephritis tx as above -KUB without obstruction (3) Right kidney stone Current Visit: Yes Status: Acute Assessment and Plan: 6-7 mm right renal stone, Non obstructive -plain film notes 7 mm right ureteral stone while RUQ US shows 6 mm right mid pole of kidney stone -reviewed by Urology and believe renal stone at this time -has bl nephrostomy tubes -d/w Dr Saravia today and attempting to remove stone is an option if no other identifiable source of pain, but prefer to avoid invasive procedure if any other likely causes of right upper quadrant /cva pain; stone is not most likely cause of pain but is possible (4) Diabetes mellitus Current Visit: Yes Status: Chronic Assessment and Plan: Hx Diabetic Neuropathy -SSI and accu checks -cont levemir qhs -cont gabapentin (5) Constipation due to opioid therapy Current Visit: Yes Status: Chronic Assessment and Plan: cont miralax bid and colace -kub without obstruction (6) Acute kidney injury superimposed on chronic kidney disease Current Visit: No Status: Acute Assessment and Plan: Resolved creat most recently in August 2.6-3.14 on admit2.2 and increase to 2.64, now improving -US without hydronephrosis -cont to monitor -pharm renally dosing meds -avoiding nephro toxic agents to best of ability -urology following and bl nephrostomy tubes appear in place and kidney stone appears to be renally located not in ureter -monitor i/os -IVFs (7) Prostate CA Current Visit: No Status: Chronic Assessment and Plan: reported outpt 10/05 CT scan per his oncologist without any mets per pt -will fu outpt with established onc upon dc -cont home tramadol (8) Chronic kidney disease, stage III (moderate) Current Visit: Yes Status: Chronic Assessment and Plan: plan as above (9) HTN (hypertension) Current Visit: Yes Status: Chronic Assessment and Plan: stable cont home cardizem and losartan (10) Anemia Current Visit: No Status: Acute Assessment and Plan: Chronic Anemia, stable Baseline Hgb is variable with most recent in july-august 2017 being 10.3-12.2 -cont to monitor for any signs of bleeding (11) Right flank pain Current Visit: Yes Status: Acute Assessment and Plan: Pain may be from pyelonephritis, cannot rule out biliary colic, though report of symptoms is not associated with food -10/18 discussed in detail with Dr Salazar, pending his further discussion with patient will consider stone removal versus HIDA scan as less invasive way to rule out another cause -CT abd/pelvis: no acute abnormality, bl nephrostomy tubes in place, no hydronephrosis, findings c/w cystitis -US gallbladder negative sonographic richards sign, unremakable gb, no pericholecytis fluid, thickening or stones. -cont home tramadol -if pain does not improve and pending work ups /interventions are unremarkable/ unsuccessful, he may need to follow with his established [facility] cancer physicians and Urology there that he was referred to previously DVT Prophylaxis: Heparin sq - Time Spent with Patient Total time spent is greater than 50% in coordination of care (as documented) at patient's floor/unit and/or counseling patient: Greater than 35 minutes Plan of Care Discussed with: patient Internal Medicine: Result - Labs CBC & Chem 7: 10/18/17 04:43 10/18/17 04:43 Labs: Short CBC 10/18/17 Range/Units 04:43 WBC 5.1 D (4.3-11.1) K/mcL Hgb 10.3 L (12.9-16.9) g/dL Hct 31.4 L (37.5-50.1) % Plt Count 239 (140-400) K/mcL Neutrophils # 3.5 (1.6-8.9) K/mcL BMP 10/18/17 04:43 Sodium 134 L Potassium 3.7 Chloride 109 H Carbon Dioxide 23 BUN 31 H Creatinine 2.33 H Glucose 158 H Calcium 8.4 L Cardiac Enzymes 10/17/17 Range/Units 09:24 Troponin I < 0.03 (< 0.04) ng/mL - Impressions Impressions Abdomen/Pelvis CT 10/17/17 09:30 IMPRESSION: 1. No acute abnormality in the abdomen/pelvis. 2. Bilateral nephrostomy tubes in place. No hydronephrosis. 3. Stable appearance of the urinary bladder, which is diffusely indurated and decompressed. Findings are suspicious for ongoing cystitis. 4. Diverticulosis. D/ / 10/17/2017 10:22:27 Dominick Rodriguez MD / vilma Interpreting Provider: Dominick Rodriguez MD Consult Discharge Plan - Plan Referrals: Saleem Ramirez DO [Primary Care Provider] - (2) Intractable nausea and vomiting Qualifiers: Vomiting type: unspecified Qualified Code(s): R11.2 - Nausea with vomiting, unspecified (4) Diabetes mellitus Qualifiers: Diabetes mellitus type: type 2 Diabetes mellitus manager intermediate insulin use: with manager intermediate use Diabetes mellitus complication status: with kidney complications Diabetes mellitus complication detail: with chronic kidney disease Chronic kidney disease stage: stage 3 (moderate) Qualified Code(s): E11.22 - Type 2 diabetes mellitus with diabetic chronic kidney disease; N18.3 - Chronic kidney disease, stage 3 (moderate); Z79.4 - long term care pharmacist (current) use of insulin (9) HTN (hypertension) Qualifiers: Hypertension type: essential hypertension Qualified Code(s): I10 - Essential (primary) hypertension
[2017-10-18] MEDS: Insulin LISPRO 300 UNITS/3 ML VIAL SQ SCH ×5 (08:05→20:56)
[2017-10-18] MEDS: Lactobacillus 1 EACH CAP.SPRINK PO SCH (08:05)
[2017-10-18] MEDS: Diltiazem CD (24hr) 240 MG CAPSULE PO SCH (08:05)
--- NOTE | 2017-10-18 08:21 | Urology Progress Note ---
Date of Encounter: 10/18/17 Time of Encounter: 07:45 - Assessment and Plan (1) Complicated UTI (urinary tract infection) Current Visit: Yes Status: Acute Assessment and plan: Patient is a 67 year old male who presents with Gram negative riley growth on preliminary report. Patient given culture report. Awaiting sensitivity report. Patient has been placed on IV Vancomycin. (2) Right kidney stone Current Visit: Yes Status: Acute Assessment and plan: Patient is a 67 year old male who presents with RUQ pain and right renal stone. Discussed options of [facility] transfer, as the patient is established there as well, versus proceeding with a right percutaneous nephrolithotomy and nephrostomy tube exchange. Patient's states he has an outpatient appointment with [facility] on 10/23/17 per patient's oncologist's referral for second opinion. Patient's prefers that General Surgery evaluate patient with HIDA scan for gallbladder dysfunction. Patient's states she will discuss this with the Hospitalist. Patient and his will discuss options and let us know later this afternoon. Progress Note Subjective: no new complaints, still having pain Narrative: Patient is a 67 year old male who presents with RUQ pain and right renal stone. Patient states pain is not as intense but is still persistent. Patient's present during examination and wishes to have HIDA scan before proceeding with any invasive procedure. Patient denies fever, chills, flank pain, dysuria, hematuria. Labs et vitals reviewed. WBC and creatinine improved. Objective Initial Vital Signs Temp Pulse Resp BP Pulse Ox 97.5 F L 76 18 174/83 98 10/16/17 12:00 10/16/17 12:00 10/16/17 12:00 10/16/17 12:10/16/17 12:00 - General physical appearance Present: well developed, no distress - Respiratory Present: normal expansion, normal respiratory effort - Abdomen Present: soft, tender (RUQ) - Integumentary Present: no rash, no abnormal pigmentation - Musculoskeletal Present: normal posture - Psychiatric Present: oriented to time, oriented to person, oriented to place, speech is normal, memory intact - Labs 10/18/17 04:43 10/18/17 04:43 Diabetes panel 10/18/17 Range/Units 04:43 Sodium 134 L (136-145) mEq/L Potassium 3.7 (3.5-5.1) mEq/L Chloride 109 H (98-107) mEq/L Carbon Dioxide 23 (23-29) mEq/L BUN 31 H (8-23) mg/dL Creatinine 2.33 H (0.70-1.30) mg/dL Glucose 158 H (70-105) mg/dL Calcium 8.4 L (8.6-10.3) mg/dL Calcium panel 10/18/17 Range/Units 04:43 Calcium 8.4 L (8.6-10.3) mg/dL Pituitary panel 10/18/17 Range/Units 04:43 Sodium 134 L (136-145) mEq/L Potassium 3.7 (3.5-5.1) mEq/L Chloride 109 H (98-107) mEq/L Carbon Dioxide 23 (23-29) mEq/L BUN 31 H (8-23) mg/dL Creatinine 2.33 H (0.70-1.30) mg/dL Glucose 158 H (70-105) mg/dL Calcium 8.4 L (8.6-10.3) mg/dL Adrenal panel 10/18/17 Range/Units 04:43 Sodium 134 L (136-145) mEq/L Potassium 3.7 (3.5-5.1) mEq/L Chloride 109 H (98-107) mEq/L Carbon Dioxide 23 (23-29) mEq/L BUN 31 H (8-23) mg/dL Creatinine 2.33 H (0.70-1.30) mg/dL Glucose 158 H (70-105) mg/dL Calcium 8.4 L (8.6-10.3) mg/dL - Imaging CT scan - abdomen: report reviewed, image reviewed CT scan - pelvis: report reviewed, image reviewed Consult Discharge Plan - Plan Referrals: Saleem Ramirez DO [Primary Care Provider] -
[2017-10-18] MEDS: Acetaminophen 325 MG TABLET PO PRN (12:20)
[2017-10-18] MEDS: Cefepime HCl 2,000 MG in Water for inj. (sterile) 20 ML 20 ML IVP SCH (16:29)
--- NOTE | 2017-10-18 17:10 | Urology Progress Note ---
Date of Encounter: 10/18/17 Time of Encounter: 17:08 - Assessment and Plan (1) Right flank pain Current Visit: Yes Status: Acute Assessment and plan: The pain persists. Minimal improvement. I agree with the hospitalist this does not seem consistent with gallbladder. Will order HIDA scan however to confirm. Further questioning suggested this may be pleurisy. We will order CT chest for further evaluation. If both studies are negative we will need to consider percutaneous removal of the ureteral stone and exchange of the nephrostomy tube. I discussed with the patient that I am not convinced that this will resolve his discomfort. No need for transfer to [facility] although if no resolution Progress Note Subjective: still having pain Objective Initial Vital Signs Temp Pulse Resp BP Pulse Ox 97.5 F L 76 18 174/83 98 10/16/17 12:00 10/16/17 12:00 10/16/17 12:00 10/16/17 12:00 10/16/17 12:00 - General physical appearance Present: no distress - Labs 10/18/17 04:43 10/18/17 04:43 Diabetes panel 10/18/17 Range/Units 04:43 Sodium 134 L (136-145) mEq/L Potassium 3.7 (3.5-5.1) mEq/L Chloride 109 H (98-107) mEq/L Carbon Dioxide 23 (23-29) mEq/L BUN 31 H (8-23) mg/dL Creatinine 2.33 H (0.70-1.30) mg/dL Glucose 158 H (70-105) mg/dL Calcium 8.4 L (8.6-10.3) mg/dL Calcium panel 10/18/17 Range/Units 04:43 Calcium 8.4 L (8.6-10.3) mg/dL Pituitary panel 10/18/17 Range/Units 04:43 Sodium 134 L (136-145) mEq/L Potassium 3.7 (3.5-5.1) mEq/L Chloride 109 H (98-107) mEq/L Carbon Dioxide 23 (23-29) mEq/L BUN 31 H (8-23) mg/dL Creatinine 2.33 H (0.70-1.30) mg/dL Glucose 158 H (70-105) mg/dL Calcium 8.4 L (8.6-10.3) mg/dL Adrenal panel 10/18/17 Range/Units 04:43 Sodium 134 L (136-145) mEq/L Potassium 3.7 (3.5-5.1) mEq/L Chloride 109 H (98-107) mEq/L Carbon Dioxide 23 (23-29) mEq/L BUN 31 H (8-23) mg/dL Creatinine 2.33 H (0.70-1.30) mg/dL Glucose 158 H (70-105) mg/dL Calcium 8.4 L (8.6-10.3) mg/dL Consult Discharge Plan - Plan Referrals: Saleem Ramirez DO [Primary Care Provider] -
[2017-10-18] MEDS: Insulin DETEMIR 100 UNIT/ML X5UNITS SQ SCH (21:03)
[2017-10-18] MEDS: Gabapentin 100 MG CAPSULE PO SCH (21:03)
[2017-10-19] MEDS: *HR* Heparin 5,000 UNIT/ML VIAL SQ SCH ×3 (05:38→21:55)
[2017-10-19 07:10] LABS: Basophils % 0.5 %; Eosinophils # 0.4 K/mcL (0.0-0.6); Eosinophils % 7.1 %; Hematocrit 33.9 % (37.5-50.1); Hemoglobin 11.4 g/dL (12.9-16.9); Immature Granulocytes % 0.4 % (0-4); Lymphocytes # 0.6 K/mcL (0.6-4.6); Lymphocytes % 10.2 %; Mean Corpuscular HGB Conc 33.6 g/dL (31.6-35.5); Mean Corpuscular Hemoglobin 30.8 pg (28.0-33.3); Mean Corpuscular Volume 91.6 fL (83.0-100.0); Monocytes # 0.5 K/mcL (0.0-1.3); Monocytes % 9.1 %; Platelet Count 264 K/mcL (140-400); Red Cell Distribution Width 12.6 % (11.5-14.5); Segmented Neutrophils % 72.7 %
[2017-10-19] MEDS: Lactobacillus 1 EACH CAP.SPRINK PO SCH (08:50)
[2017-10-19] MEDS: Diltiazem CD (24hr) 240 MG CAPSULE PO SCH (08:50)
[2017-10-19] MEDS: Insulin LISPRO 300 UNITS/3 ML VIAL SQ SCH ×7 (08:51→21:54)
[2017-10-19] MEDS: *HR* HYDROmorphone (PF) 1 MG/ML SYRINGE IVP PRN (12:51)
[2017-10-19] MEDS ORDERED: Aminoglycoside Consult 1 EACH MC ONE (15:19)
[2017-10-19] MEDS: Cefepime HCl 2,000 MG in Water for inj. (sterile) 20 ML 20 ML IVP SCH (15:44)
--- NOTE | 2017-10-19 19:05 | Event Note ---
Date of Encounter: 10/19/17 Time of Encounter: 19:03 30 minute conversation regarding plan. CT chest was mostly unremarkable. HIDA scan only showed mild decreased gallbladder ejection fraction but no cholecystitis. Unlikely either is the source of his continued right upper quadrant discomfort. No change in his symptoms. We discussed proceeding with the antegrade stone extraction and replacement of nephrostomy tube. I am concerned that this procedure has a low potential to decrease his pain as I am not convinced that his pain represents renal colic. He seems to have significant discomfort on deep palpation in the upper abdominal quadrant but does not have significant CVA tenderness. I still offered the potential to proceed with this surgery. At this point, he does not wish to proceed with any intervention. He desires discharge if all other hospital issues are resolved. He has an outpatient appointment scheduled with [facility] urology next week and would like to seek their opinion regarding the matter. He may still wish to proceed with the surgery in the future. All questions answered. Hospitalist service should provide pain medication at discharge help manage his discomfort.
--- NOTE | 2017-10-19 19:19 | Internal Med Progress Note ---
Hospitalist Progress Note - Encounter Date of Encounter: 10/19/17 Time of Encounter: 08:25 - Subjective Interval History: tolerable pain, no nausea emesis. hot sweats overnight but no documented fever. overall feeling improved - Exam Vitals: Temp Pulse Resp BP Pulse Ox 97.8 F 82 16 164/86 94 10/19/17 16:24 10/19/17 16:24 10/19/17 16:24 10/19/17 16:24 10/19/17 16:24 Exam: General: awake, alert, appears stated age Cardiovascular:regular rate and rhythm, normal S1 & S2, no rubs, murmurs or gallops. No JVD. no lower extremity edema Lungs:Normal breath sounds, no wheezes, or crackles. Normal respiratory effort Abdomen:Soft, non tender no guarding or rebound, non-distended,+ bowel sounds MSK: no right cva tenderness on palpation Neurological: AAOx3 Skin:Normal color, no rash, no pallor, no jaundice - Assessment and Plan (1) Complicated UTI (urinary tract infection) Current Visit: Yes Status: Acute Assessment and Plan: Right Pyelonephritis Hx Recurrent UTIs -Ucx ecoli, sensitivities reviewed with pharm -bl cxs pending -Vanc with pharm to dose renally--now dc'd with micro results -Cont cefepime -given ? of obstructive stone on imaging Urology following, see below -monitor i/os -IVFs -prn pain control and anti emetic (2) Intractable nausea and vomiting Current Visit: Yes Status: Resolved Assessment and Plan: Resolved since admission Pyelonephritis tx as above -KUB without obstruction (3) Right kidney stone Current Visit: Yes Status: Acute Assessment and Plan: 6-7 mm right renal stone, Non obstructive -plain film notes 7 mm right ureteral stone while RUQ US shows 6 mm right mid pole of kidney stone -reviewed by Urology and believe renal stone at this time -has bl nephrostomy tubes -d/w Dr Saravia 10/18 and attempting to remove stone is an option if no other identifiable source of pain, but prefer to avoid invasive procedure if any other likely causes of right upper quadrant /cva pain; stone is not most likely cause of pain but is possible, rec to get HIDA scan first (4) Diabetes mellitus Current Visit: Yes Status: Chronic Assessment and Plan: Hx Diabetic Neuropathy -SSI and accu checks -cont levemir qhs -cont gabapentin (5) Constipation due to opioid therapy Current Visit: Yes Status: Chronic Assessment and Plan: cont miralax bid and colace -kub without obstruction (6) Acute kidney injury superimposed on chronic kidney disease Current Visit: No Status: Acute Assessment and Plan: Resolved creat most recently in August 2.6-3.14 on admit2.2 and increase to 2.64, now improving -US without hydronephrosis -cont to monitor -pharm renally dosing meds -avoiding nephro toxic agents to best of ability -urology following and bl nephrostomy tubes appear in place and kidney stone appears to be renally located not in ureter -monitor i/os -IVFs (7) Prostate CA Current Visit: No Status: Chronic (8) Chronic kidney disease, stage III (moderate) Current Visit: Yes Status: Chronic Assessment and Plan: plan as above (9) HTN (hypertension) Current Visit: Yes Status: Chronic Assessment and Plan: stable cont home cardizem and losartan (10) Anemia Current Visit: No Status: Acute Assessment and Plan: Chronic Anemia, stable Baseline Hgb is variable with most recent in july-august 2017 being 10.3-12.2 -cont to monitor for any signs of bleeding (11) Right flank pain Current Visit: Yes Status: Acute Assessment and Plan: Pain may be from pyelonephritis, cannot rule out biliary colic, though report of symptoms is not associated with food -10/[address] discussed in detail with Dr Salazar,rec to check hida scan before attempt at stone removal -CT abd/pelvis: no acute abnormality, bl nephrostomy tubes in place, no hydronephrosis, findings c/w cystitis -US gallbladder negative sonographic richards sign, unremakable gb, no pericholecytis fluid, thickening or stones. -cont home tramadol -HIDA scan negative, fu urology recs -if pain does not improve and pending work ups /interventions are unremarkable/ unsuccessful, he may need to follow with his established [facility] cancer physicians and Urology there that he was referred to previously DVT Prophylaxis: Heparin sq - Time Spent with Patient Total time spent is greater than 50% in coordination of care (as documented) at patient's floor/unit and/or counseling patient: 25 - 35 minutes Plan of Care Discussed with: patient Internal Medicine: Result - Labs CBC & Chem 7: 10/19/17 06:12 10/18/17 04:43 Consult Discharge Plan - Plan Referrals: Saleem Ramirez DO [Primary Care Provider] - (2) Intractable nausea and vomiting Qualifiers: Vomiting type: unspecified Qualified Code(s): R11.2 - Nausea with vomiting, unspecified (4) Diabetes mellitus Qualifiers: Diabetes mellitus type: type 2 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
[2017-10-19] MEDS: OXYCODONE Oral CONC 10 MG/0.5 ML ORAL.SYG SL PRN (19:49)
[2017-10-19] MEDS: traMADol 50 MG TABLET PO PRN (20:44)
[2017-10-19] MEDS: Gabapentin 100 MG CAPSULE PO SCH (20:44)
[2017-10-19] MEDS: Insulin DETEMIR 100 UNIT/ML X5UNITS SQ SCH (21:58)
--- NOTE | 2017-10-19 23:27 | Electrocardiograph Report ---
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
[2017-10-20] MEDS: OXYCODONE Oral CONC 10 MG/0.5 ML ORAL.SYG SL PRN ×3 (03:24→12:44)
[2017-10-20] MEDS: *HR* Heparin 5,000 UNIT/ML VIAL SQ SCH ×2 (05:26→12:43)
[2017-10-20] MEDS: traMADol 50 MG TABLET PO PRN (06:30)
[2017-10-20 06:57] LABS: Calcium 9.4 mg/dL (8.6-10.3); Potassium 4.4 mEq/L (3.5-5.1)
--- NOTE | 2017-10-20 08:00 | Discharge Summary ---
- NOTES TO OUTPATIENT PROVIDER Notes to Outpatient Provider: There was no clear identifiable source of his pain other than suspected pyelonephritis. Gall bladder dysfunction/stones were ruled out with US and HIDA. He should follow up with Urology with Dr Saravia and his referral to [facility] as well. No urologic procedures preformed. He has follow up at [facility] Monday 10/23 and was given slightly increased dose of home pain med upon discharge for this weekend as needed Date of Encounter: 10/20/17 Time of Encounter: 10:30 - Discharge Diagnosis (1) Complicated UTI (urinary tract infection) Priority: Primary Status: Acute Assessment and Plan: previously documented as Right Pyelonephritis, questionable at dc as dx based off of + UTI and Rigth CVA tenderness though CT a/p did not demonstrate perinephric stranding Hx Recurrent UTIs Confirmed complicated UTI this admission -Ucx ecoli, sensitivities reviewed with pharm -bl cxs ngtd -Vanc with pharm to dose renally--now dc'd with micro results -Conted cefepime throughout admission once sensitivities resulted -given ? of obstructive stone on imaging Urology followed, see below for detils -prn pain control and anti emetic -based on cx results, creat clearance in setting of CKD and discussion with pharmacy--will dc on amoxicillin and SS Bactrim to complete course of treatment -fu with [facility] as scheduled on Monday10/23/17 (2) Intractable nausea and vomiting Priority: Secondary Status: Resolved Assessment and Plan: Resolved since admission Pyelonephritis tx as above -KUB without obstruction Qualifiers: Vomiting type: unspecified Qualified Code(s): R11.2 - Nausea with vomiting , unspecified (3) Right kidney stone Priority: Secondary Status: Acute Assessment and Plan: 6-7 mm right renal stone, Non obstructive -plain film notes 7 mm right ureteral stone while RUQ US shows 6 mm right mid pole of kidney stone -reviewed by Urology and believe renal stone at this time -has bl nephrostomy tubes -d/w Dr Saravia 10/18 and attempting to remove stone is an option if no other identifiable source of pain, but prefer to avoid invasive procedure if any other likely causes of right upper quadrant /cva pain; stone is not most likely cause of pain but is possible, rec to get HIDA scan first (negative) -fu with Dr Saravia and with [facility] Dr Irwin 10/23/17 as scheduled (4) Diabetes mellitus Priority: Secondary Status: Chronic Assessment and Plan: Hx Diabetic Neuropathy -SSI and accu checks -cont levemir qhs -cont gabapentin resume home regimen on dc Qualifiers: Diabetes mellitus type: type 2 Diabetes mellitus half-way insulin use: with half-way use Diabetes mellitus complication status: with kidney complications Diabetes mellitus complication detail: with chronic kidney disease Chronic kidney disease stage: stage 3 (moderate) Qualified Code(s): E11.22 - Type 2 diabetes mellitus with diabetic chronic kidney disease; N18.3 - Chronic kidney disease, stage 3 (moderate); Z79.4 - custodial (current) use of insulin (5) Constipation due to opioid therapy Priority: Secondary Status: Chronic Assessment and Plan: cont miralax bid and colace on dc -3d rx for miralax as constipation resolved but stool remains very hard -kub without obstruction (6) Acute kidney injury superimposed on chronic kidney disease Priority: Secondary Status: Resolved Assessment and Plan: Resolved creat most recently in August 2.6-3.14 on admit2.2 and increase to 2.64 -US without hydronephrosis -pharm renally dosed meds -urology following and bl nephrostomy tubes appear in place and kidney stone appears to be renally located not in ureter -may cont home losartan (7) Prostate CA Priority: Secondary Status: Chronic Assessment and Plan: reported outpt 10/05 CT scan per his oncologist without any mets per pt -will fu outpt with established onc upon dc -cont home tramadol (8) Chronic kidney disease, stage III (moderate) Priority: Secondary Status: Chronic Assessment and Plan: plan as above (9) HTN (hypertension) Priority: Secondary Status: Chronic Assessment and Plan: cont home cardizem and losartan requires outpt fu with pcp as BPs elevated during admission with relatively constant pain, if persists when pain better controlled may require dosing adjustments asx with elevated bps this admit Qualifiers: Hypertension type: essential hypertension Qualified Code(s): I10 - Essential (primary) hypertension (10) Anemia Priority: Secondary Status: Acute Assessment and Plan: Chronic Anemia, stable Baseline Hgb is variable with most recent in july-august 2017 being 10.3-12.2 Qualifiers: Anemia type: due to chronic kidney disease Chronic kidney disease stage: unspecified stage Qualified Code(s): N18.9 - Chronic kidney disease, unspecified; D63.1 - Anemia in chronic kidney disease (11) Right flank pain Priority: Primary Status: Acute Assessment and Plan: Pain may be from Complicated UTI versus renal colic from intra renal stone/ nephrostomy tubes Biliary colic has been uled out At time of discharge pain persists, is stable, and etiology is unknown -given his work up here has been negative--Dr Saravia prefers him to see [facility] as he is scheduled to do on Monday10/23/17 to get second opinion regarding pain ( this was set up prior to admission) -given persistent pain pt and wree given option to transfer to [facility] for eval by Uro and they declined and preferred dc to home with outpt follow up -CT abd/pelvis: no acute abnormality, bl nephrostomy tubes in place, no hydronephrosis, findings c/w cystitis -US gallbladder negative sonographic richards sign, unremakable gb, no pericholecytis fluid, thickening or stones. -HIDA scan negative -having now routine bowel movements -fu with Dr Irwin [facility] 10/23/17 as scheduled -fu with established oncology as scheduled Discharge discussed with: patient - Time Spent with Patient Total time spent providing and/or coordinating discharge services: Greater than 30 minutes - Discharge Medications Prescriptions: Amoxicillin [Amoxil] 500 mg PO BID 9 Days #18 capsule Polyethylene Glycol 3350 [MiraLAX] 17 gm PO BID 3 Days #6 powd.pack Sulfamethoxazole/Trimeth SS [Bactrim SS] 1 each PO BID 9 Days #18 tablet Home Medications: Insulin DETEMIR [Levemir] 30 unit SQ HS 30 Days [id number] 01/19/16 [Rx] Sertraline [Zoloft] 25 mg PO DAILY 04/13/16 [History] Insulin ASPART [Novolog Flexpen] 10 - 15 unit SQ TID 11/17/16 [History] Diltiazem CD (24hr) [Cardizem CD] 240 mg PO DAILY 12/15/16 [History] Lactobacillus Combination No.9 [Adult 50 + Probiotic] 1 cap PO DAILY 03/19/17 [ History] Ondansetron HCl [Zofran] 8 mg PO DAILY PRN 03/19/17 [History] Multivit-Min/FA/Lycopen/Lutein [Centrum Silver Men Tablet] 1 tab PO DAILY [History] Esomeprazole Magnesium [Nexium 24Hr] 20 mg PO DAILY 06/06/17 [History] Docusate Sodium [Dok] 100 mg PO DAILY PRN 06/07/17 [History] Gabapentin [Neurontin] 100 mg PO DAILY 10/16/17 [History] Losartan [Cozaar] 25 mg PO BID 10/16/17 [History] Amoxicillin [Amoxil] 500 mg PO BID 9 Days #18 capsule 10/20/17 [Rx] Polyethylene Glycol 3350 [MiraLAX] 17 gm PO BID 3 Days #6 powd.pack 10/20/17 [Rx ] Sulfamethoxazole/Trimeth SS [Bactrim SS] 1 each PO BID 9 Days #18 tablet [Rx] Tramadol HCl [Ultram] 50 mg PO Q4H PRN 3 Days #0 10/20/17 [Rx] Allergies/Adverse Reactions: 3 Allergy/AdvReac Type Severity Reaction Status Date / Time tegaderm AdvReac Blister Uncoded 10/16/17 16:06 Date of admission: 10/19/17 14:12 Primary care physician: Saleem Ramirez DO Discharging clinician: Kalani Mortensen - Constitutional Vitals: Temp Pulse Resp BP Pulse Ox 97.7 F 75 18 184/94 95 10/20/17 06:58 10/20/17 06:58 10/20/17 06:58 10/20/17 06:58 10/20/17 06:58 General appearance: Present: A&O X 3, obese Exam: General: awake, alert, appears stated age Cardiovascular:regular rate and rhythm, normal S1 & S2, no rubs, murmurs or gallops. No JVD. no lower extremity edema Lungs:Normal breath sounds, no wheezes, or crackles. Normal respiratory effort Abdomen:Soft, non tender no guarding or rebound, non-distended,+ bowel sounds MSK: no right cva tenderness on palpation Neurological: AAOx3 Skin:Normal color, no rash, no pallor, no jaundice - Patient Status Disposition: Home, Self-Care Condition: Good Functional capacity at discharge: independent ambulation Overall status at discharge: patient is progressing back to baseline - Discharge Instructions Follow Up With: Saleem Ramirez DO [Primary Care Provider] - Martin Saravia MD [Partnered Physician] - Additional Instructions: Dr Irwin [facility] as scheduled on ; Dr Euceda ID as scheduled previously - Diet and Activity Activity: resume usual activities as tolerated Diet: advance to your usual diet
[2017-10-20] MEDS: Insulin LISPRO 300 UNITS/3 ML VIAL SQ SCH ×4 (08:28→11:41)
[2017-10-20] MEDS: Lactobacillus 1 EACH CAP.SPRINK PO SCH (08:30)
[2017-10-20] MEDS: Diltiazem CD (24hr) 240 MG CAPSULE PO SCH (08:30)
[2017-10-20 14:15] VITALS: BP 164/82
[2017-10-20] MEDS: Cefepime HCl 2,000 MG in Water for inj. (sterile) 20 ML 20 ML IVP SCH (14:45)
== END 2017-10-20 15:20 | disposition home or self-care (01) | DRG 690 ==
LOC: EMEROOARM 11:51 → 3ANU 11:51 → SUATTDRO 16:47 → 3ANU 18:24
PROVIDERS: ADMIT Student in an Organized Health Care Education/Training Program; ATTEND Internal Medicine

== ENCOUNTER 2017-12-27 12:44 | Inpatient (IN) ==
[2017-12-27] MEDS ORDERED: Cefepime HCl 2,000 MG in 0.9 % Sodium Chloride Mini Bag 100 ML IVPB ONE (13:23)
--- NOTE | 2017-12-27 13:31 | Emergency Department Note ---
Disposition Clinical Impression: UTI (urinary tract infection) Qualifiers: Urinary tract infection type: site unspecified Hematuria presence: with hematuria Qualified Code(s): N39.0 - Urinary tract infection, site not specified Disposition: Admitted As Inpatient Condition: Good Time of Disposition: 16:52 General Adult HPI - General Chief complaint: ED Weakness Stated complaint: vomiting,nausea Time Seen by Provider: 12/27/17 13:02 Nursing Notes Reviewed: Yes Vital Signs Reviewed: Yes - History of Present Illness HPI Narrative: 67-year-old male presents from home with bedside for evaluation of nausea and vomiting. Nausea started 4 days ago with vomiting starting today. Emesis is nonbloody, nonbilious. He has lumbar back pain that extends bilaterally. Both patient and are concerned for UTI. Patient has a history of recurrent UTI. He typically has a constellation and progression of symptoms that start with belching progressing to nausea progressing to vomiting progressing to fever with associated back pain; this occurred 6 times previously. He has been afeb rile thus far his course. Patient is a history of prostate cancer with last radiation therapy in October. The radiation caused scarring of his bladder necessitating nephrostomy tube placement. Most recent nephrostomy tube replacement was in October 2017. Patient has had nephrostomy tubes placed but this this facility as well as at [facility]. He is been admitted previously to this facility for similar symptoms. Patient's notes that urine flow studies at [facility] which did show urine flow to the bladder however, it was recommended nephrostomy tube stay in place secondary to the extensive bladder scarring. ROS: Positive: As above Negative:, Chills, chest pain, palpitations, dyspnea, diaphoresis, diarrhea. Pain Scale: 4 - Related Data Home Medications Medication Instructions Recorded Confirmed Sertraline [Zoloft] 25 mg PO DAILY 04/13/16 12/27/17 Insulin ASPART [Novolog Flexpen] 10 - 15 unit SQ TID 11/17/16 12/27/17 Diltiazem CD (24hr) [Cardizem CD] 240 mg PO DAILY 12/15/16 12/27/17 Lactobacillus Combination No.9 1 cap PO DAILY 03/19/17 12/27/17 [Adult 50 + Probiotic] Ondansetron HCl [Zofran] 8 mg PO DAILY PRN 03/19/17 12/27/17 Multivit-Min/FA/Lycopen/Lutein 1 tab PO DAILY 04/25/17 12/27/17 [Centrum Silver Men Tablet] Gabapentin [Neurontin] 100 mg PO DAILY 10/16/17 12/27/17 Losartan [Cozaar] 25 mg PO BID 10/16/17 12/27/17 Cyanocobalamin (Vitamin B-12) 5,000 mcg PO DAILY 11/28/17 12/27/17 [Vitamin B-12] Enzalutamide [Xtandi] 80 mg PO DAILY 12/27/17 12/27/17 Oxycodone HCl 15 mg PO Q8H PRN 12/27/17 12/27/17 Previous Rx's Medication Instructions Recorded Insulin DETEMIR [Levemir] 30 unit SQ HS 30 Days [id number] 01/19/16 Allergies Allergy/AdvReac Type Severity Reaction Status Date / Time tegaderm AdvReac Blister Uncoded 12/27/17 12:54 All systems ED: reviewed and negative except as stated. Review of Systems: As Per HPI Past Medical History - Past Medical History Medical history: Reports: cancer, diabetes, hyperlipidemia, hypertension, other Surgical history: Reports: orthopedic, other, ureteral stent, other Psychiatric history: Reports: depression - Social History Smoking Status: Never smoker Smokeless Tobacco Status: No Alcohol use: Reports: none Drug use: Reports: none Physical Exam Vital Signs Reviewed General: Patient is alert, oriented, and in mild distress from his nausea. He appears pale. Head: atraumatic, normocephalic Eye: normal appearance, PERRL, EOMI, no scleral icterus, no conjunctival injection ENT: mucous membranes moist, normal external ear exam Neck: normal inspection, trachea midline, full ROM Chest: normal inspection, symmetric chest rise Respiratory: Good respiratory effort. Bilateral breath sounds are clear without wheezing, crackles, or rhonchi. Cardiovascular: Regular rate and rhythm. No clicks, rubs, gallops, or murmors. Normal heart sounds. Abdomen: Bowel sounds present normoactive x-4 quadrants. Abdomen is soft, nondistended, and nontender. No guarding or rebound. No organomegaly noted. Musculoskeletal: Spontaneously moving all extremities. Skin: warm, dry, intact. Nephrostomy tubes seen extending the skin bilaterally with retaining sutures in place and no surrounding erythema or purulence. Neuro: Alert and oriented x4. Sensation light touch intact. Psych: Patient's affect is appropriate for situation. Course Course Narrative: EKG dated 12/27/2017 at 13:37 interpreted as sinus rhythm with rate of 82. DC 183, curious 96, QTC 452. Normal axis. Nonspecific ST-T changes. Compared to previous EKG dated 10/16/2017 showing no acute ischemic changes or comparison. Concern for infection and urinary tract given patient's long history of this and his current time light of symptoms correlating well with his 6 previous episodes of similar. Patient's emergency department stay was prolonged obtaining urinalysis. Serum creatinine, though elevated, is better than patient's baseline. Mild anemia is consistent with patient's baseline. Given patient's history and both he and his being relaxed the story is, however empirically covered with vancomycin and cefepime for which prior urine cultures showed Escherichia coli and enterococcus with sensitivities to those medications. Serum hematology is unremarkable. Patient has no leukocytosis or leukocytopenia. Urinalysis which was clean catch collected from the patient's nephrostomy tube concerning for infection. Culture is pending. I discussed the above with the patient and his at bedside. They are agreea ble to admission for continued IV antibiotics and observation. I discussed the above with the admitting hospitalist, Dr. Slaughter, who agrees to accept the patient for complicated UTI. Vital Signs Temperature 97.8 F 12/27/17 12:52 Pulse Rate 91 12/27/17 12:52 Respiratory Rate 18 12/27/17 12:52 Blood Pressure 150/96 12/27/17 12:52 O2 Sat by Pulse Oximetry 97 12/27/17 12:52 Temperature 97.8 F 12/27/17 12:52 Pulse Rate 91 12/27/17 12:52 Respiratory Rate 18 12/27/17 12:52 Blood Pressure 150/96 12/27/17 12:52 O2 Sat by Pulse Oximetry 97 12/27/17 12:52 Oxygen Delivery Oxygen Delivery Room Air Medical Decision Making - Lab Data Result diagrams: 12/27/17 13:53 12/27/17 13:53 Lab Results 12/27/17 12/27/17 12/27/17 Range/Units 13:53 13:53 13:53 WBC 5.7 (4.3-11.1) K/mcL RBC 3.84 L (4.19-5.50) M/mcL Hgb 11.6 L (12.9-16.9) g/dL Hct 34.0 L (37.5-50.1) % MCV 88.5 (83.0-100.0) fL MCH 30.2 (28.0-33.3) pg MCHC 34.1 (31.6-35.5) g/dL RDW 14.5 (11.5-14.5) % Plt Count 386 (140-400) K/mcL MPV 8.7 L (9.4-12.4) fL Immature Gran % 1.2 (0-4) % Seg Neutrophils % 68.4 % Lymphocytes % 13.8 % Monocytes % 10.7 % Eosinophils % 5.2 % Basophils % 0.7 % Neutrophils # 3.9 (1.6-8.9) K/mcL Lymphocytes # 0.8 (0.6-4.6) K/mcL Monocytes # 0.6 (0.0-1.3) K/mcL Eosinophils # 0.3 (0.0-0.6) K/mcL Basophils # 0.0 (0.0-0.2) K/mcL PT 11.7 (9.4-12.1) Seconds INR 1.0 APTT 41.8 H (26.0-36.0) Seconds Sodium 136 (136-145) mEq/L Potassium 3.8 (3.5-5.1) mEq/L Chloride 102 (98-107) mEq/L Carbon Dioxide 25 (23-29) mEq/L BUN 29 H (8-23) mg/dL Creatinine 1.98 H (0.70-1.30) mg/dL Est GFR ( Amer) 41 L (> 60) Est GFR (Non-Af Amer) 34 L (> 60) BUN/Creatinine Ratio 15 (6-26) Glucose 123 H (70-105) mg/dL Calculated Osmolality 289 (280-300) Lactic Acid (0.5-2.2) mmol/L Calcium 9.9 (8.6-10.3) mg/dL Magnesium 2.1 (1.6-2.6) mg/dL Total Bilirubin 0.4 (0.3-1.0) mg/dL Direct Bilirubin 0.0 (0.0-0.2) mg/dL Indirect Bilirubin 0.4 (0.0-1.2) mg/dL AST 12 L (13-39) Units/L ALT 12 (7-52) Units/L Alkaline Phosphatase 78 (34-104) Units/L Troponin I < 0.03 (< 0.04) ng/mL Serum Total Protein 6.8 (6.4-8.9) g/dL Albumin 4.1 (3.5-5.7) g/dL Globulin 2.7 (2.4-3.5) g/dL Albumin/Globulin Ratio 1.5 (1.1-2.2) Urine Color (Yellow) Urine Clarity (Clear) Urine pH (5.0-8.0) pH Units Ur Specific Mayflower (1.010-1.025) Urine Protein (Neg-Trace) mg/dL Urine Glucose (UA) (Normal) mg/dL Urine Ketones (Negative) mg/dL Urine Blood (Negative) Urine Nitrite (Negative) Urine Bilirubin (Negative) Urine Urobilinogen (Normal) mg/dL Ur Leukocyte Esterase (Negative) Urine Microscopic RBC (0-3) per hpf Urine Microscopic WBC (0-3) per hpf Ur Squamous Epith Cells (None-Few) per lpf Urine Bacteria (None-Few) per hpf Hyaline Casts (None-Few) per lpf Urine Yeast (None Seen) per hpf Ur Culture Indicated? (NO) 12/27/17 12/27/17 Range/Units 13:53 15:55 WBC (4.3-11.1) K/mcL RBC (4.19-5.50) M/mcL Hgb (12.9-16.9) g/dL Hct (37.5-50.1) % MCV (83.0-100.0) fL MCH (28.0-33.3) pg MCHC (31.6-35.5) g/dL RDW (11.5-14.5) % Plt Count (140-400) K/mcL MPV (9.4-12.4) fL Immature Gran % (0-4) % Seg Neutrophils % % Lymphocytes % % Monocytes % % Eosinophils % % Basophils % % Neutrophils # (1.6-8.9) K/mcL Lymphocytes # (0.6-4.6) K/mcL Monocytes # (0.0-1.3) K/mcL Eosinophils # (0.0-0.6) K/mcL Basophils # (0.0-0.2) K/mcL PT (9.4-12.1) Seconds INR APTT (26.0-36.0) Seconds Sodium (136-145) mEq/L Potassium (3.5-5.1) mEq/L Chloride (98-107) mEq/L Carbon Dioxide (23-29) mEq/L BUN (8-23) mg/dL Creatinine (0.70-1.30) mg/dL Est GFR ( Amer) (> 60) Est GFR (Non-Af Amer) (> 60) BUN/Creatinine Ratio (6-26) Glucose (70-105) mg/dL Calculated Osmolality (280-300) Lactic Acid 1.2 (0.5-2.2) mmol/L Calcium (8.6-10.3) mg/dL Magnesium (1.6-2.6) mg/dL Total Bilirubin (0.3-1.0) mg/dL Direct Bilirubin (0.0-0.2) mg/dL Indirect Bilirubin (0.0-1.2) mg/dL AST (13-39) Units/L ALT (7-52) Units/L Alkaline Phosphatase (34-104) Units/L Troponin I (< 0.04) ng/mL Serum Total Protein (6.4-8.9) g/dL Albumin (3.5-5.7) g/dL Globulin (2.4-3.5) g/dL Albumin/Globulin Ratio (1.1-2.2) Urine Color Yellow (Yellow) Urine Clarity Cloudy A (Clear) Urine pH 6.5 (5.0-8.0) pH Units Ur Specific Mayflower 1.014 (1.010-1.025) Urine Protein 100 H (Neg-Trace) mg/dL Urine Glucose (UA) Normal (Normal) mg/dL Urine Ketones Negative (Negative) mg/dL Urine Blood Trace H (Negative) Urine Nitrite Negative (Negative) Urine Bilirubin Negative (Negative) Urine Urobilinogen Normal (Normal) mg/dL Ur Leukocyte Esterase Large H (Negative) Urine Microscopic RBC 0-3 (0-3) per hpf Urine Microscopic WBC TNTC H (0-3) per hpf Ur Squamous Epith Cells Few (None-Few) per lpf Urine Bacteria Moderate H (None-Few) per hpf Hyaline Casts None Seen (None-Few) per lpf Urine Yeast Many H (None Seen) per hpf Ur Culture Indicated? YES A (NO)
--- NOTE | 2017-12-27 13:41 | Emergency Department Note ---
Disposition Clinical Impression: UTI (urinary tract infection) Qualifiers: Urinary tract infection type: site unspecified Hematuria presence: with hematuria Qualified Code(s): N39.0 - Urinary tract infection, site not specified; R31.9 - Hematuria, unspecified Disposition: Still a Patient Referrals: Saleem Ramirez DO [Primary Care Provider] - Forms: ED Satisfaction Letter General Adult HPI - General Chief complaint: ED Weakness Stated complaint: vomiting,nausea Time Seen by Provider: 12/27/17 13:02 Nursing Notes Reviewed: Yes Vital Signs Reviewed: Yes - History of Present Illness HPI Narrative: Attestation note ED attending note I examined this patient and my medical decision-making was reviewed with the emergency medicine resident Dr.KURT KEENE. I agree with the documented findings, disposition and treatment plan as described except to the extent set forth below. Briefly: [age] male history of bladder cancer had extensive radiation resul ting in extensive scarring in the bladder resulting in bilateral nephrostomy tubes. Patient has occasional infections in his upper system which are the symptoms he presents with today. Vomiting nausea weakness and loss of appetite. Patient will undergo ED workup and likely admission with IV antibiotics. Disposition pending Pain Scale: 4 - Related Data Home Medications Medication Instructions Recorded Confirmed Sertraline [Zoloft] 25 mg PO DAILY 04/13/16 11/28/17 Insulin ASPART [Novolog Flexpen] 10 - 15 unit SQ TID 11/17/16 11/28/17 Diltiazem CD (24hr) [Cardizem CD] 240 mg PO DAILY 12/15/16 11/28/17 Lactobacillus Combination No.9 1 cap PO DAILY 03/19/17 11/28/17 [Adult 50 + Probiotic] Ondansetron HCl [Zofran] 8 mg PO DAILY PRN 03/19/17 10/16/17 Multivit-Min/FA/Lycopen/Lutein 1 tab PO DAILY 04/25/17 11/28/17 [Centrum Silver Men Tablet] Gabapentin [Neurontin] 100 mg PO DAILY 10/16/17 11/28/17 Losartan [Cozaar] 25 mg PO BID 10/16/17 11/28/17 Cyanocobalamin (Vitamin B-12) 5,000 mcg PO DAILY 11/28/17 11/28/17 [Vitamin B-12] Previous Rx's Medication Instructions Recorded Insulin DETEMIR [Levemir] 30 unit SQ HS 30 Days [id number] 01/19/16 Tramadol HCl [Ultram] 50 mg PO Q4H PRN 3 Days #0 10/20/17 Allergies Allergy/AdvReac Type Severity Reaction Status Date / Time tegaderm AdvReac Blister Uncoded 12/27/17 12:54 Past Medical History - Past Medical History Medical history: Reports: cancer, diabetes, hyperlipidemia, hypertension, other Surgical history: Reports: orthopedic, other, ureteral stent, other Psychiatric history: Reports: depression - Social History Smoking Status: Never smoker Smokeless Tobacco Status: No Alcohol use: Reports: none Drug use: Reports: none Course Vital Signs Temperature 97.8 F 12/27/17 12:52 Pulse Rate 91 12/27/17 12:52 Respiratory Rate 18 12/27/17 12:52 Blood Pressure 150/96 12/27/17 12:52 O2 Sat by Pulse Oximetry 97 12/27/17 12:52 Temperature 97.8 F 12/27/17 12:52 Pulse Rate 91 12/27/17 12:52 Respiratory Rate 18 12/27/17 12:52 Blood Pressure 150/96 12/27/17 12:52 O2 Sat by Pulse Oximetry 97 12/27/17 12:52 Oxygen Delivery Oxygen Delivery Room Air
[2017-12-27 14:09] LABS: Basophils % 0.7 %; Eosinophils # 0.3 K/mcL (0.0-0.6); Eosinophils % 5.2 %; Hemoglobin 11.6 g/dL (12.9-16.9); Immature Granulocytes % 1.2 % (0-4); Lymphocytes # 0.8 K/mcL (0.6-4.6); Lymphocytes % 13.8 %; Mean Corpuscular HGB Conc 34.1 g/dL (31.6-35.5); Mean Corpuscular Hemoglobin 30.2 pg (28.0-33.3); Mean Corpuscular Volume 88.5 fL (83.0-100.0); Mean Platelet Volume 8.7 fL (9.4-12.4); Monocytes # 0.6 K/mcL (0.0-1.3); Monocytes % 10.7 %; Neutrophils # 3.9 K/mcL (1.6-8.9); Platelet Count 386 K/mcL (140-400); Red Blood Count 3.84 M/mcL (4.19-5.50); Red Cell Distribution Width 14.5 % (11.5-14.5); Segmented Neutrophils % 68.4 %
[2017-12-27 14:22] LABS: Prothrombin Time 11.7 Seconds (9.4-12.1)
[2017-12-27 14:25] LABS: Activated Partial Thrombo Time 41.8 Seconds (26.0-36.0)
[2017-12-27 14:32] LABS: Troponin I < 0.03 ng/mL (< 0.04)
[2017-12-27 14:42] LABS: Alanine Aminotransferase 12 Units/L (7-52); Albumin 4.1 g/dL (3.5-5.7); Albumin/Globulin Ratio 1.5 (1.1-2.2); Alkaline Phosphatase 78 Units/L (34-104); Aspartate Amino Transferase 12 Units/L (13-39); BUN/Creatinine Ratio 15 (6-26); Bilirubin,Indirect 0.4 mg/dL (0.0-1.2); Bilirubin,Total 0.4 mg/dL (0.3-1.0); Blood Urea Nitrogen 29 mg/dL (8-23); Calcium 9.9 mg/dL (8.6-10.3); Carbon Dioxide 25 mEq/L (23-29); Chloride 102 mEq/L (98-107); Globulin 2.7 g/dL (2.4-3.5); Glucose 123 mg/dL (70-105); Magnesium 2.1 mg/dL (1.6-2.6); Osmolality,Calculated 289 (280-300); Potassium 3.8 mEq/L (3.5-5.1); Sodium 136 mEq/L (136-145); Total Protein 6.8 g/dL (6.4-8.9); eGFR For Non-African Americans 34 (> 60)
[2017-12-27 16:17] LABS: Bilirubin,Urine Negative (Negative); Blood,Urine Trace (Negative); Clarity,Urine Cloudy (Clear); Color,Urine Yellow (Yellow); Glucose,Urine (UA) Normal (Normal); Ketones,Urine Negative (Negative); Leukocyte Esterase,Urine Large (Negative); Nitrite,Urine Negative (Negative); PH,Urine 6.5 pH Units (5.0-8.0); Protein,Urine 100 mg/dL (Neg-Trace); Specific Gravity,Urine 1.014 (1.010-1.025); Urobilinogen,Urine Normal (Normal)
[2017-12-27 16:19] LABS: Hyaline Casts,Urine None Seen per lpf (None-Few); Squamous Epithelial Cell,Urine Few per lpf (None-Few); WBC,Urine TNTC per hpf (0-3)
[2017-12-27 16:29] LABS: RBC,Urine 0-3 per hpf (0-3)
[2017-12-27 16:30] LABS: Bacteria,Urine Moderate per hpf (None-Few); Yeast,Urine Many per hpf (None Seen)
[2017-12-27] MEDS ORDERED: Naloxone 0.4 MG/ML INJ IVP PRN (16:43)
--- NOTE | 2017-12-27 17:22 | Internal Med History&Physical ---
Date of Encounter: 12/27/17 Time of Encounter: 17:13 Internal Medicine - H&P: HPI Chief complaint: vomiting,nausea Admitted From: Home Plans for Post Hospital Care: Home History of present illness: Mr. 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 as per patietn his symptoms started about 1 week prior to admission with weakness and fatigue and gradually he lost his appetite and developed fever and chills along with foul smelling urine efrom his bilateral nephrostomy tubes. on the morning of admission he had an episode of bile stained vomiting denies blood so his decided to bring him to the hospital for further evaluation. in addition to above he complains of bilateral flank pain that is alleviated with oxycodone that he is prescribed at home. he describes his pain as crampy 5/10 in nature and it keps him up from sleeping at nights. he cannot recall aggravating factors. he and at bedside report that these are the symptoms he has when he develops Urinary tract infections. he has had multiple urinary tract infections last one in october 2017. his nephrostomy tubes were changed in september. follows with urology Dr. Ibarra. he was admitted in october 2017 with similar symptoms and treated with IV bx. [facility] was [facility] f[facility]f to have Cord compression and anterior lateral displacement into the T6-T7 neural foramen. Lumbar degenerative disc disease and reciveded "10" sessions of radiation at [facility] he declined neurosurgical intervention at [facility]. he follows with Dr. Ayala at [place]. currenty he denies fever, chills, N/V/D, chest pain, SOB, palpitations, LOC, syncope, loss of function of his extremities. Past Med Surg Social Fam HX - Past Medical History Medical history: cancer, diabetes, hyperlipidemia, hypertension, other Additional medical history: prostate (last radiation 2017) Psychiatric history: depression - Past Surgical History Surgical History: orthopedic, other, ureteral stent, other Additional surgical history: left knee replacement, carpal tunnel surgery, bilateral nephro tube - Social History Smoking Status: Never smoker Smokeless Tobacco Status: No Alcohol use: none Drug use: none - Family History Father Family Member Ethnicity: Non- Living Status: Hx Family Cardiac Disorders: No Hx Family Respiratory Disorders: No Hx Family Cancer: Yes (Colon) Hx Family GI Disorders: No Hx Family Endocrine Disorder: Yes (Diabetes) Hx Family Neuromuscular Disorders: No Hx Family Neurologic Disorders: No Hx Family HEENT Disorders: No Hx Family Autoimmune Disorders: No Brother Family Member Ethnicity: Non- Living Status: Hx Family Cancer: Yes (Colon and lung) Mother Family Member Ethnicity: Non- Living Status: Sister Family Member Ethnicity: Non- Living Status: Still Living Hx Family Endocrine Disorder: Yes (DM) Internal Medicine - H&P: Meds Insulin DETEMIR [Levemir] 30 unit SQ HS 30 Days [id number] 01/19/16 [Rx] Sertraline [Zoloft] 25 mg PO DAILY 04/13/16 [History] Insulin ASPART [Novolog Flexpen] 10 - 15 unit SQ TID 11/17/16 [History] Diltiazem CD (24hr) [Cardizem CD] 240 mg PO DAILY 12/15/16 [History] Lactobacillus Combination No.9 [Adult 50 + Probiotic] 1 cap PO DAILY 03/19/17 [History] Ondansetron HCl [Zofran] 8 mg PO DAILY PRN 03/19/17 [History] Multivit-Min/FA/Lycopen/Lutein [Centrum Silver Men Tablet] 1 tab PO DAILY 04/25/17 [History] Gabapentin [Neurontin] 100 mg PO DAILY 10/16/17 [History] Losartan [Cozaar] 25 mg PO BID 10/16/17 [History] Cyanocobalamin (Vitamin B-12) [Vitamin B-12] 5,000 mcg PO DAILY 11/28/17 [History] Enzalutamide [Xtandi] 80 mg PO DAILY 12/27/17 [History] Oxycodone HCl 15 mg PO Q8H PRN 12/27/17 [History] Allergy/AdvReac Type Severity Reaction Status Date / Time tegaderm AdvReac Blister Uncoded 12/27/17 12:54 All Systems PM: A 10-system review of systems was performed and is negative for pertinent findin gs except as documented above in the HPI. - Constitutional Vitals: Temp Pulse Resp BP Pulse Ox 97.8 F 88 18 142/90 98 12/27/17 12:52 12/27/17 17:07 12/27/17 17:07 12/27/17 17:07 12/27/17 17:07 Exam: General: Patient is alert, oriented, no acute distress, obese Head: atraumatic, normocephalic, Eye: normal appearance, PERRL, no scleral icterus, no conjunctival injection ENT: mucous membranes moist, normal external ear exam Neck: normal inspection, trachea midline, full ROM, no carotid bruits Chest: normal inspection, symmetric chest rise Respiratory: Good respiratory effort. Bilateral breath sounds are clear without wheezing, crackles, or rhonchi. Cardiovascular: Regular rate and rhythm. s1 and s2 No clicks, rubs, gallops, or murmors. Abdomen: Bowel sounds present normoactive x-4 quadrants. Abdomen is soft, nondistended. no Epigastric tenderness. No guarding or rebound. No organomegaly noted, obese, has bilateral CVA tenderness bilateral nephrostomy tubes draining cloudy urine. musculoskeletal: Spontaneously moving all extremities. no edema, no calf tenderness Skin: warm, dry, intact. Neuro: Alert and oriented x4. . Cranial nerves 2-12 is intact. no focal deficit Psych: Patient's affect is normal Internal Med - H&P Results - Labs CBC & Chem 7: 12/27/17 13:53 12/27/17 13:53 Labs: Short CBC 12/27/17 Range/Units 13:53 WBC 5.7 (4.3-11.1) K/mcL Hgb 11.6 L (12.9-16.9) g/dL Hct 34.0 L (37.5-50.1) % Plt Count 386 (140-400) K/mcL Neutrophils # 3.9 (1.6-8.9) K/mcL BMP 12/27/17 13:53 Sodium 136 Potassium 3.8 Chloride 102 Carbon Dioxide 25 BUN 29 H Creatinine 1.98 H Glucose 123 H Calcium 9.9 Cardiac Enzymes 12/27/17 Range/Units 13:53 Troponin I < 0.03 (< 0.04) ng/mL Liver Function 12/27/17 Range/Units 13:53 Total Bilirubin 0.4 (0.3-1.0) mg/dL Direct Bilirubin 0.0 (0.0-0.2) mg/dL AST 12 L (13-39) Units/L ALT 12 (7-52) Units/L Alkaline Phosphatase 78 (34-104) Units/L Albumin 4.1 (3.5-5.7) g/dL Urine 12/27/ Range/Units 15:55 Urine Color Yellow (Yellow) Urine Clarity Cloudy A (Clear) Urine pH 6.5 (5.0-8.0) pH Units Ur Specific Gregory 1.014 (1.010-1.025) Urine Protein 100 H (Neg-Trace) mg/dL Urine Glucose (UA) Normal (Normal) mg/dL - EKG Data -: EKG Interpreted by Myself EKG shows normal: sinus rhythm - EKG Data Prior EKG available for review: yes When compared to previous EKG: there is no significant change (NSR, RSR' in V1 and v2 ) - Assessment and plan (1) Complicated UTI (urinary tract infection) Current Visit: No Status: Acute Assessment and plan: has bilateral nephrostomy tubes with positive urine and bilateral flank tenderness rule out pyelonephritis was admitted in october for similar Symptoms and urine grew E.coli and enterococcus CT A/p ordered will follow to rule out obstruction nephrostomy tubes last changed in September will consult urology follow ucx and deescalate as per Cx IV hydration with NS at 75 cc per hour. started on vancomycin and cefepime IV- pharmacy to dose follow bcx (2) Kidney stones Current Visit: No Status: Acute Assessment and plan: 6-7 mm right renal stone, Non obstructive plain film in october 2017 notes 7 mm right ureteral stone while RUQ US shows 6 mm right mid pole of kidney stone urology consulted Ct A/p ordered will follow results (3) Prostate cancer Current Visit: No Status: Acute Assessment and plan: follows with Dr. childress as Op continue home pain medications (4) Anemia Current Visit: No Status: Chronic Assessment and plan: Chronic Anemia, stable receives aranesp through nephrology Baseline Hgb is variable with most recent being 10.3-12.2 Qualifiers: Anemia type: other cause Other causes of anemia: other cause, not classified Qualified Code(s): D64.89 - Other specified anemias (5) Chronic kidney disease, stage III (moderate) Current Visit: No Status: Chronic Assessment and plan: CKD 3 with baseline creatinine from 2-3 currently is at 1.98 continue gentle hydration pharmacy to dose medications will follow kidney functions closely (6) Diabetes Current Visit: No Status: Chronic Assessment and plan: will continue long acting home insulin Sliding scale - adjust as per finger sticks Qualifiers: Diabetes mellitus type: type 2 Diabetes mellitus 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 insulin use: unspecified 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 insulin use status Diabetes mellitus complication status: with unspecified complications Qualified Code(s): E11.8 - Type 2 diabetes mellitus with unspecified complications (7) Hypertension Current Visit: No Status: Chronic Assessment and plan: continue home dose cardizem and losartan Qualifiers: Hypertension type: essential hypertension Qualified Code(s): I10 - Essential (primary) hypertension (8) DVT prophylaxis Current Visit: No Status: Acute Assessment and plan: heparin SC - Time Spent With Patient Total time spent is greater than 50% in coordination of care (as documented) at patient's floor/unit and/or counseling patient:
[2017-12-27] MEDS ORDERED: D5% in Water 1,000 ML IVC PRN (17:40)
[2017-12-27] MEDS ORDERED: *HR* Dextrose 50 % in Water (Syg) 50 ML SYRINGE IVP PRN (17:40)
[2017-12-27] MEDS ORDERED: Dextrose Gel 15 GM/37.5 ML TUBE PO PRN ×2 (17:40)
[2017-12-27] MEDS: 0.9 % Sodium Chloride 1,000 ML IVC SCH (20:24)
[2017-12-27] MEDS: Insulin DETEMIR 100 UNIT/ML X5UNITS SQ SCH (20:26)
[2017-12-27] MEDS: *HR* Heparin 5,000 UNIT/ML VIAL SQ SCH (20:27)
[2017-12-27] MEDS ORDERED: Ondansetron 4 MG/2 ML VIAL IVP ONE (20:36)
[2017-12-28] MEDS: *HR* OxyCODONE Immed Rel 15 MG TABLET PO PRN ×2 (00:31→23:41)
[2017-12-28 05:12] LABS: Basophils % 0.6 %; Eosinophils # 0.4 K/mcL (0.0-0.6); Eosinophils % 7.4 %; Hematocrit 32.9 % (37.5-50.1); Hemoglobin 10.9 g/dL (12.9-16.9); Immature Granulocytes % 1.2 % (0-4); Lymphocytes # 0.7 K/mcL (0.6-4.6); Lymphocytes % 14.3 %; Mean Corpuscular HGB Conc 33.1 g/dL (31.6-35.5); Mean Corpuscular Hemoglobin 29.8 pg (28.0-33.3); Mean Corpuscular Volume 89.9 fL (83.0-100.0); Monocytes # 0.6 K/mcL (0.0-1.3); Neutrophils # 3.1 K/mcL (1.6-8.9); Platelet Count 343 K/mcL (140-400); Red Blood Count 3.66 M/mcL (4.19-5.50); Red Cell Distribution Width 14.6 % (11.5-14.5); Segmented Neutrophils % 64.5 %
[2017-12-28 05:31] LABS: Calcium 8.7 mg/dL (8.6-10.3); Magnesium 1.9 mg/dL (1.6-2.6)
[2017-12-28] MEDS: 0.9 % Sodium Chloride 1,000 ML IVC SCH (05:42)
[2017-12-28] MEDS: *HR* Heparin 5,000 UNIT/ML VIAL SQ SCH ×3 (06:21→20:41)
[2017-12-28] MEDS ORDERED: Ondansetron 4 MG/2 ML VIAL ONE (08:51)
[2017-12-28] MEDS: Multivit/Ca/Min/Fe/FA 1 TAB TABLET PO SCH (09:08)
[2017-12-28] MEDS: Diltiazem CD (24hr) 240 MG CAPSULE PO SCH (09:08)
[2017-12-28] MEDS: Insulin LISPRO 300 UNITS/3 ML VIAL SQ SCH ×3 (09:08→16:57)
[2017-12-28] MEDS: Gabapentin 100 MG CAPSULE PO SCH (09:08)
[2017-12-28] MEDS: Cyanocobalamin (B-12) 1,000 MCG TABLET PO SCH (09:08)
[2017-12-28] MEDS: Lactobacillus 1 EACH CAP.SPRINK PO SCH (09:09)
[2017-12-28] MEDS: Ondansetron 4 MG/2 ML VIAL IVP SCH ×4 (09:10→23:24)
[2017-12-28] MEDS: ENZALUTAMIDE 80 MG PO SCH ×2 (09:10→16:59)
--- NOTE | 2017-12-28 10:30 | Internal Med Progress Note ---
Hospitalist Progress Note - Encounter Date of Encounter: 12/28/17 Time of Encounter: 09:00 - Subjective Interval History: Mr. 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 as per patient his symptoms started about 1 week prior to admission with weakness and fatigue and gradually he lost his appetite and developed fever and chills along with foul smelling urine from his bilateral nephrostomy tubes. Patient states he is feeling little better today however still very lethargic and nauseous. - Exam Vitals: Temp Pulse Resp BP Pulse Ox 98.1 F 75 18 138/78 94 12/28/17 07:48 12/28/17 07:48 12/28/17 07:48 12/28/17 07:48 12/28/17 09:00 Exam: Gen: Alert, awake, Oriented to time,place and person Chest: Diminished breath sounds B/L, No wheezing, No crackles, No rales Heart: S1S2+ RRR No murmurs Abd: Soft, mildly discomfort in the lower abdomen, BS +, No organomegaly Back: bilateral nephrostomy tubes noticed.. Right CVA tenderness noticed Ext: No edema, pulses are palpable, No calf tenderness Neuro : Benign findings Skin: No rash. - Assessment and Plan (1) Complicated UTI (urinary tract infection) Current Visit: No Status: Acute Assessment and Plan: has bilateral nephrostomy tubes with positive urine and bilateral flank tenderness CT of A/P did not show any obstruction and no pyelonephritis His UA - showed esterase and many bacteria his Urine did growwE. Coli, Enteroccocus species and Staph in the past So will cont Vancomycin and Cefepime for now will f/u on Urine cx Patient does need to stay in the hospital more than 2 midnights due to his complex medical problems. So we will change him to full admission today. I did review my colleague Dr. Barrios H & P including HPI, PMH, PSH, FH, SH, and ROS no changes noticed (2) Intractable nausea and vomiting Current Visit: No Status: Resolved Assessment and Plan: Probably secondary to UTI and chemotherapy continue symptomatic and supportive care IV hydration (3) Hypertension Current Visit: No Status: Chronic Assessment and Plan: continue home dose cardizem and losartan (4) DVT prophylaxis Current Visit: No Status: Acute Assessment and Plan: heparin SC (5) Anemia Current Visit: No Status: Chronic Assessment and Plan: Chronic Anemia, stable receives aranesp through nephrology Baseline Hgb is variable with most recent being 10.3-12.2 (6) Prostate cancer Current Visit: No Status: Acute Assessment and Plan: follows with [facility] at [place] and [facility] continue home pain medications (7) Kidney stones Current Visit: No Status: Acute Assessment and Plan: CT of Abd / Pelvis did not show any active calculi now (8) Diabetes Current Visit: No Status: Chronic Assessment and Plan: ADA diet and ISS (9) Chronic kidney disease, stage III (moderate) Current Visit: No Status: Chronic Assessment and Plan: CKD 3 stable creatinine at baseline - Time Spent with Patient Total time spent is greater than 50% in coordination of care (as documented) at patient's floor/unit and/or counseling patient: Internal Medicine: Result - Labs CBC & Chem 7: 12/28/17 03:57 12/28/17 03:57 Labs: Short CBC 12/27/17 12/28/17 Range/Units 13:53 03:57 WBC 5.7 4.8 (4.3-11.1) K/mcL Hgb 11.6 L 10.9 L (12.9-16.9) g/dL Hct 34.0 L 32.9 L (37.5-50.1) % Plt Count 386 343 (140-400) K/mcL Neutrophils # 3.9 3.1 (1.6-8.9) K/mcL BMP 12/27/17 12/28/17 13:53 03:57 Sodium 136 139 Potassium 3.8 4.0 Chloride 102 106 Carbon Dioxide 25 24 BUN 29 H 27 H Creatinine 1.98 H 1.93 H Glucose 123 H 138 H Calcium 9.9 8.7 Cardiac Enzymes 12/27/17 Range/Units 13:53 Troponin I < 0.03 (< 0.04) ng/mL Liver Function 12/27/17 Range/Units 13:53 Total Bilirubin 0.4 (0.3-1.0) mg/dL Direct Bilirubin 0.0 (0.0-0.2) mg/dL AST 12 L (13-39) Units/L ALT 12 (7-52) Units/L Alkaline Phosphatase 78 (34-104) Units/L Albumin 4.1 (3.5-5.7) g/dL Urine 12/27/17 Range/Units 15:55 Urine Color Yellow (Yellow) Urine Clarity Cloudy A (Clear) Urine pH 6.5 (5.0-8.0) pH Units Ur Specific Yancey 1.014 (1.010-1.025) Urine Protein 100 H (Neg-Trace) mg/dL Urine Glucose (UA) Normal (Normal) mg/dL - ABG Interpretation ABG results: PT/INR, D-dimer PT 11.7 Seconds (9.4-12.1) 12/27/17 13:53 - Impressions Impressions Abdomen/Pelvis CT 12/27/17 16:44 IMPRESSION: 1. No acute findings identified in the abdomen and pelvis. No evidence of obstructive uropathy. D/ / Fritz Nelson MD / Fritz Nelson MD Interpreting Provider: Fritz Nelson MD Consult Discharge Plan - Plan Referrals: Saleem Ramirez DO [Primary Care Provider] - (Your appointment has been requested our office will call you with follow up.) (2) Intractable nausea and vomiting Qualifiers: Vomiting type: unspecified Qualified Code(s): R11.2 - Nausea with vomiting, unspecified (3) Hypertension Qualifiers: Hypertension type: essential hypertension Qualified Code(s): I10 - Essential (primary) hypertension (5) Anemia Qualifiers: Anemia type: other cause Other causes of anemia: other cause, not classified Qualified Code(s): D64.89 - Other specified anemias (8) Diabetes Qualifiers: Diabetes mellitus type: type 2 Diabetes mellitus extermination 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
[2017-12-28] MEDS ORDERED: Cefepime HCl 2,000 MG in Water for inj. (sterile) 20 ML 20 ML IVP SCH (14:00)
--- NOTE | 2017-12-28 14:05 | Urology - Consult Note ---
<Vero Madden N - Last Filed: 12/28/17 14:03> Date of Encounter: 12/28/17 Time of Encounter: 08:45 - Assessment and Plan (1) UTI (urinary tract infection) Current Visit: Yes Status: Acute Assessment and plan: Patient is a 67 year old male who presents with urinary tract infection and prostate cancer with obstructive uropathy requiring chronic nephrostomy tubes. Patient is following with [facility] primarily for management. Nephrostomy tubes are in proper position and draining well. Vital signs are stable and afebrile. Patient is receiving appropriate broad spectrum antibiotics and appears to be clinically improved. Will await culture results, and if patient fails to improve or desires transfer to primary urologist, we may transfer to [facility] if needed. Qualifiers: Urinary tract infection type: site unspecified Hematuria presence: with hematuria Qualified Code(s): N39.0 - Urinary tract infection, site not specified; R31.9 - Hematuria, unspecified (2) Bony metastasis Current Visit: No Status: Acute (3) Prostate cancer Current Visit: No Status: Chronic Urology CN:HPI Consult date: 12/28/17 Reason for consult Urology: Other (urinary tract infection, bilateral nephrostomy tubes,) History of present illness: Patient is a 67 year old male who presents with a history of urinary tract infection. Patient is well known to our service, as he has chronic bilateral nephrostomy tubes secondary to obstructive uropathy and prostate cancer. Patient is primarily following with Dr. Moon at [facility] and Dr. Irwin at [facility]. Patient recently completed 10 rounds of radiation. Patient underwent nephrostomy tube exchange on 10/31/17 at [facility] as well as a cystoscopy and antegrade pyelogram. Patient's reports pyelogram was interpreted as normal, but cystoscopy revealed a large amount bladder scarring that obscure ureteral orifices, therefore confirming ureteral stents would not be a future option. Patient states he began feeling weak and fatigued one week ago and subsequently developed fever, chills, and malodorous urine. Patient states urinary tract infections most always begin with these stated symptoms. Patient states he was last treated for a urinary tract infection [address] of the abdomen and pelvis is reassuring for no pyelonephritis or obstructing calculi. Patient's urine has been sent for culture, and he has been empirically placed on IV Vancomycin and Cefepime. Past Med Surg Social Fam HX - Past Medical History Medical history: cancer, diabetes, hyperlipidemia, hypertension, other Additional medical history: prostate (last radiation 11/11/17) Psychiatric history: depression - Past Surgical History Surgical History: orthopedic, other, ureteral stent, other Additional surgical history: left knee replacement, carpal tunnel surgery, bilateral nephro tube - Social History Smoking Status: Never smoker Smokeless Tobacco Status: No Alcohol use: none Drug use: none - Family History Brother Family Member Ethnicity: Non- Living Status: Hx Family Cancer: Yes (Colon and lung) Father Family Member Ethnicity: Non- Living Status: Hx Family Cardiac Disorders: No Hx Family Respiratory Disorders: No Hx Family Cancer: Yes (Colon) Hx Family GI Disorders: No Hx Family Endocrine Disorder: Yes (Diabetes) Hx Family Neuromuscular Disorders: No Hx Family Neurologic Disorders: No Hx Family HEENT Disorders: No Hx Family Autoimmune Disorders: No Mother Family Member Ethnicity: Non- Living Status: Sister Family Member Ethnicity: Non- Living Status: Still Living Hx Family Endocrine Disorder: Yes (DM) Medications and Allergies RX: Insulin DETEMIR [Levemir] 30 unit SQ HS 30 Days [id number] 01/19/16 [Rx] RX: Sertraline [Zoloft] 25 mg PO DAILY 04/13/16 [History] RX: Insulin ASPART [Novolog Flexpen] 10 - 15 unit SQ TID 11/17/16 [History] RX: Diltiazem CD (24hr) [Cardizem CD] 240 mg PO DAILY 12/15/16 [History] RX: Lactobacillus Combination No.9 [Adult 50 + Probiotic] 1 cap PO DAILY 03/19/17 [History] RX: Ondansetron HCl [Zofran] 8 mg PO BID PRN 03/19/17 [History] RX: Multivit-Min/FA/Lycopen/Lutein [Centrum Silver Men Tablet] 1 tab PO DAILY 04/25/17 [History] RX: Gabapentin [Neurontin] 100 mg PO DAILY 10/16/17 [History] RX: Losartan [Cozaar] 25 mg PO BID 10/16/17 [History] Cyanocobalamin (Vitamin B-12) [Vitamin B-12] 5,000 mcg SL DAILY 11/28/17 [History] Enzalutamide [Xtandi] 40 mg PO DAILY 12/27/17 [History] Oxycodone HCl 15 mg PO Q8H PRN 12/27/17 [History] Esomeprazole Magnesium [Nexium] 20 mg PO DAILY 12/28/17 [History] Allergy/AdvReac Type Severity Reaction Status Date / Time tegaderm AdvReac Blister Uncoded 12/27/17 12:54 Review of Systems - Constitutional chills, fatigue, fever(s), weakness - EENT Nose, mouth and throat: no dizziness, no headache(s), no throat swelling - Cardiovascular no chest pain, no diaphoresis, no dyspnea - Respiratory no cough, no dyspnea - Gastrointestinal abdominal pain, nausea, no change in bowel habits, no vomiting - Genitourinary flank pain, no difficulty urinating, no dysuria, no hematuria, no urinary frequency, no urinary hesitancy, no urinary incontinence - Musculoskeletal back pain, no muscle weakness - Integumentary no erythema, no rash, no swelling - Neurological no confusion, no syncope - Psychiatric no anxiety, no confusion - Hematologic/Lymphatic no easy bleeding, no easy bruising - Allergic/Immunologic no throat swelling, no wheezing Exam Initial Vital Signs Temp Pulse Resp BP Pulse Ox 97.8 F 91 18 150/96 97 12/27/17 12:52 12/27/17 12:52 12/27/17 12:52 12/27/17 12:52 12/27/17 12:52 - General physical appearance Present: well developed, no distress, no pain - Eyes Present: PERRL, normal ocular movement - ENT Present: normal nares, no hearing loss - Neck Present: no masses, trachea midline - Respiratory Present: normal respiratory effort - Cardiovascular Cardiovascular exam IM: RRR - Abdomen Abdomen: Present: soft, tender (bilateral cvat ) - Genitourinary other (bilateral nephrostomy tubes draining clear urine with scant sediment in tubing ) - Integumentary Present: no rash, no abnormal pigmentation - Neurologic Present: normal coordination - Musculoskeletal Present: other (normal posture ) Urology Results - Labs 12/28/17 03:57 12/28/17 03:57 Abnormal lab results RBC 3.66 M/mcL (4.19-5.50) L 12/28/17 03:57 Hgb 10.9 g/dL (12.9-16.9) L 12/28/17 03:57 Hct 32.9 % (37.5-50.1) L 12/28/17 03:57 RDW 14.6 % (11.5-14.5) H 12/28/17 03:57 MPV 9.0 fL (9.4-12.4) L 12/28/17 03:57 APTT 41.8 Seconds (26.0-36.0) H 12/27/17 13:53 BUN 27 mg/dL (8-23) H 12/28/17 03:57 Creatinine 1.93 mg/dL (0.70-1.30) H 12/28/17 03:57 Est GFR ( Amer) 42 (> 60) L 12/28/17 03:57 Est GFR (Non-Af Amer) 35 (> 60) L 12/28/17 03:57 Glucose 138 mg/dL (70-105) H 12/28/17 03:57 POC Glucose 147 mg/dL (70-99) H 12/27/17 20:39 AST 12 Units/L (13-39) L 12/27/17 13:53 Urine Clarity Cloudy (Clear) A 12/27/17 15:55 Urine Protein 100 mg/dL (Neg-Trace) H 12/27/17 15:55 Urine Blood Trace (Negative) H 12/27/17 15:55 Ur Leukocyte Esterase Large (Negative) H 12/27/17 15:55 Urine Microscopic WBC TNTC per hpf (0-3) H 12/27/17 15:55 Urine Bacteria Moderate per hpf (None-Few) H 12/27/17 15:55 Urine Yeast Many per hpf (None Seen) H 12/27/17 15:55 Ur Culture Indicated? YES (NO) A 12/27/17 15:55 Diabetes panel 12/27/17 12/28/17 Range/Units 13:53 03:57 Sodium 136 139 (136-145) mEq/L Potassium 3.8 4.0 (3.5-5.1) mEq/L Chloride 102 106 (98-107) mEq/L Carbon Dioxide 25 24 (23-29) mEq/L BUN 29 H 27 H (8-23) mg/dL Creatinine 1.98 H 1.93 H (0.70-1.30) mg/dL Glucose 123 H 138 H (70-105) mg/dL Calcium 9.9 8.7 (8.6-10.3) mg/dL AST 12 L (13-39) Units/L ALT 12 (7-52) Units/L Alkaline Phosphatase 78 (34-104) Units/L Albumin 4.1 (3.5-5.7) g/dL Calcium panel 12/27/17 12/28/17 Range/Units 13:53 03:57 Calcium 9.9 8.7 (8.6-10.3) mg/dL Phosphorus 4.0 (2.7-4.5) mg/dL Albumin 4.1 (3.5-5.7) g/dL Pituitary panel 12/27/17 12/28/17 Range/Units 13:53 03:57 Sodium 136 139 (136-145) mEq/L Potassium 3.8 4.0 (3.5-5.1) mEq/L Chloride 102 106 (98-107) mEq/L Carbon Dioxide 25 24 (23-29) mEq/L BUN 29 H 27 H (8-23) mg/dL Creatinine 1.98 H 1.93 H (0.70-1.30) mg/dL Glucose 123 H 138 H (70-105) mg/dL Calcium 9.9 8.7 (8.6-10.3) mg/dL Adrenal panel 12/27/17 12/28/17 Range/Units 13:53 03:57 Sodium 136 139 (136-145) mEq/L Potassium 3.8 4.0 (3.5-5.1) mEq/L Chloride 102 106 (98-107) mEq/L Carbon Dioxide 25 24 (23-29) mEq/L BUN 29 H 27 H (8-23) mg/dL Creatinine 1.98 H 1.93 H (0.70-1.30) mg/dL Glucose 123 H 138 H (70-105) mg/dL Calcium 9.9 8.7 (8.6-10.3) mg/dL Total Bilirubin 0.4 (0.3-1.0) mg/dL AST 12 L (13-39) Units/L ALT 12 (7-52) Units/L Alkaline Phosphatase 78 (34-104) Units/L Albumin 4.1 (3.5-5.7) g/dL All other labs normal. - Imaging CT scan - abdomen: report reviewed, image reviewed CT scan - pelvis: report reviewed, image reviewed Consult Discharge Plan - Plan Referrals: Saleem Ramirez DO [Primary Care Provider] - (Your appointment has been requested our office will call you with follow up.) <Martin Saravia - Last Filed: 12/29/17 06:30> Date of Encounter: 12/29/17 - Assessment and Plan (1) Complicated UTI (urinary tract infection) Current Visit: No Status: Acute Assessment and plan: Patient seen and examined in conjunction with physician tax assistant. Agree with plan. We will continue to follow patient while in the hospital. No surgical intervention planned at this time. Okay to observe nephrostomy tubes for now unless condition changes Exam Initial Vital Signs Temp Pulse Resp BP Pulse Ox 97.8 F 91 18 150/96 97 12/27/17 12:52 12/27/17 12:52 12/27/17 12:52 12/27/17 12:52 12/27/17 12:52 Urology Results - Labs 12/28/17 03:57 12/28/17 03:57 Abnormal lab results RBC 3.66 M/mcL (4.19-5.50) L 12/28/17 03:57 Hgb 10.9 g/dL (12.9-16.9) L 12/28/17 03:57 Hct 32.9 % (37.5-50.1) L 12/28/17 03:57 RDW 14.6 % (11.5-14.5) H 12/28/17 03:57 MPV 9.0 fL (9.4-12.4) L 12/28/17 03:57 APTT 41.8 Seconds (26.0-36.0) H 12/27/17 13:53 BUN 27 mg/dL (8-23) H 12/28/17 03:57 Creatinine 1.93 mg/dL (0.70-1.30) H 12/28/17 03:57 Est GFR ( Amer) 42 (> 60) L 12/28/17 03:57 Est GFR (Non-Af Amer) 35 (> 60) L 12/28/17 03:57 Glucose 138 mg/dL (70-105) H 12/28/17 03:57 POC Glucose 234 mg/dL (70-99) H 12/28/17 20:22 AST 12 Units/L (13-39) L 12/27/17 13:53 Urine Clarity Cloudy (Clear) A 12/27/17 15:55 Urine Protein 100 mg/dL (Neg-Trace) H 12/27/17 15:55 Urine Blood Trace (Negative) H 12/27/17 15:55 Ur Leukocyte Esterase Large (Negative) H 12/27/17 15:55 Urine Microscopic WBC TNTC per hpf (0-3) H 12/27/17 15:55 Urine Bacteria Moderate per hpf (None-Few) H 12/27/17 15:55 Urine Yeast Many per hpf (None Seen) H 12/27/17 15:55 Ur Culture Indicated? YES (NO) A 12/27/17 15:55 All other labs normal.
[2017-12-28] MEDS: Insulin DETEMIR 100 UNIT/ML X5UNITS SQ SCH (20:39)
[2017-12-29] MEDS: Ondansetron 4 MG/2 ML VIAL IVP SCH ×4 (06:02→23:43)
[2017-12-29] MEDS: *HR* Heparin 5,000 UNIT/ML VIAL SQ SCH ×3 (06:02→23:40)
--- NOTE | 2017-12-29 07:35 | Urology Progress Note ---
Date of Encounter: 12/29/17 Time of Encounter: 07:33 - Assessment and Plan (1) Complicated UTI (urinary tract infection) Current Visit: No Status: Acute Assessment and plan: I reviewed the CT scan and agree there is no need for surgical intervention. So far blood cultures have been negative. It does not appear that a urine culture is pending. Patient is displaying no signs of sepsis and is improving slowly with antibiotics. I had a 20 minute conversation with the patient and his . When they are comfortable I feel that he can be discharged on a 10 day course of antibiotics. Based on his last culture which had 2 organisms he may require to antibiotics Bactrim and nitrofurantoin would be appropriate. They declined using a daily low-dose antibiotic for fear of C. difficile and resistance. They should follow up with [facility] which is currently managing his metastatic prostate cancer. We will change his nephrostomy bags but leave the tubing in place for now Progress Note Subjective: feels better, still having pain Objective Initial Vital Signs Temp Pulse Resp BP Pulse Ox 97.8 F 91 18 150/96 97 12/27/17 12:52 12/27/17 12:52 12/27/17 12:52 12/27/17 12:52 12/27/17 12:52 - General physical appearance Present: no distress - Additional Exam urine clear. - Labs 12/28/17 03:57 12/28/17 03:57 Consult Discharge Plan - Plan Referrals: Saleem Ramirez DO [Primary Care Provider] - (Your appointment has been requested our office will call you with follow up.)
[2017-12-29] MEDS: Insulin LISPRO 300 UNITS/3 ML VIAL SQ SCH ×4 (07:53→16:33)
[2017-12-29] MEDS: Cyanocobalamin (B-12) 1,000 MCG TABLET PO SCH (08:03)
[2017-12-29] MEDS: Multivit/Ca/Min/Fe/FA 1 TAB TABLET PO SCH (08:03)
[2017-12-29] MEDS: Gabapentin 100 MG CAPSULE PO SCH (08:04)
[2017-12-29] MEDS: Diltiazem CD (24hr) 240 MG CAPSULE PO SCH (08:04)
[2017-12-29] MEDS: Lactobacillus 1 EACH CAP.SPRINK PO SCH (08:04)
[2017-12-29] MEDS ORDERED: *HR* Promethazine 25 MG/ML VIAL IVP PRN (11:35)
--- NOTE | 2017-12-29 11:38 | Internal Med Progress Note ---
Hospitalist Progress Note - Encounter Date of Encounter: 12/29/17 Time of Encounter: 11:35 - Subjective Interval History: Mr. 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 as per patient his symptoms started about 1 week prior to admission with weakness and fatigue and gradually he lost his appetite and developed fever and chills along with foul smelling urine from his bilateral nephrostomy tubes. Patient states he is feeling little better today however still very lethargic and nauseous. Zofran is not helping much of his nausea. - Exam Vitals: Temp Pulse Resp BP Pulse Ox 97.7 F 67 14 144/84 96 12/29/17 07:27 12/29/17 07:27 12/29/17 07:27 12/29/17 07:27 12/29/17 07:27 Exam: Gen: Alert, awake, Oriented to time,place and person Chest: Diminished breath sounds B/L, No wheezing, No crackles, No rales Heart: S1S2+ RRR No murmurs Abd: Soft, mildly discomfort in the lower abdomen, BS +, No organomegaly Back: bilateral nephrostomy tubes noticed..improved Right CVA tenderness noticed Ext: No edema, pulses are palpable, No calf tenderness Neuro : Benign findings Skin: No rash. - Assessment and Plan (1) Complicated UTI (urinary tract infection) Current Visit: No Status: Acute Assessment and Plan: has bilateral nephrostomy tubes with positive urine and bilateral flank tenderness CT of A/P did not show any obstruction and no pyelonephritis His UA - showed esterase and many bacteria his Urine did grow E. Coli, Enteroccocus species and Staph in the past Unable to switch to Bactrim and Macrobid due to his CKD-3 Current Urine cx grown Yeast so far so will switch to Ancef + Continue Vancomycin for now Also added Diflucan 100mg Daily x 7 days (2) Intractable nausea and vomiting Current Visit: No Status: Resolved Assessment and Plan: Probably secondary to UTI and chemotherapy continue symptomatic and supportive care IV hydration Added Phenergan (3) Hypertension Current Visit: No Status: Chronic Assessment and Plan: continue home dose cardizem and losartan (4) DVT prophylaxis Current Visit: No Status: Acute Assessment and Plan: heparin SC (5) Anemia Current Visit: No Status: Chronic Assessment and Plan: Chronic Anemia, stable receives aranesp through nephrology Baseline Hgb is variable with most recent being 10.3-12.2 (6) Prostate cancer Current Visit: No Status: Acute Assessment and Plan: follows with [facility] at [place] and [facility] continue home pain medications (7) Kidney stones Current Visit: No Status: Acute Assessment and Plan: CT of Abd / Pelvis did not show any active calculi now (8) Diabetes Current Visit: No Status: Chronic Assessment and Plan: ADA diet Cont ISS + Levemir also started on pre meal insulin 5U TID (9) Chronic kidney disease, stage III (moderate) Current Visit: No Status: Chronic Assessment and Plan: CKD 3 stable creatinine at baseline - Time Spent with Patient Total time spent is greater than 50% in coordination of care (as documented) at patient's floor/unit and/or counseling patient: Internal Medicine: Result - Labs CBC & Chem 7: 12/28/17 03:57 12/28/17 03:57 - ABG Interpretation ABG results: PT/INR, D-dimer PT 11.7 Seconds (9.4-12.1) 12/27/17 13:53 Consult Discharge Plan - Plan Referrals: Saleem Ramirez DO [Primary Care Provider] - (Your appointment has been requested our office will call you with follow up.) (2) Intractable nausea and vomiting Qualifiers: Vomiting type: unspecified Qualified Code(s): R11.2 - Nausea with vomiting, unspecified (3) Hypertension Qualifiers: Hypertension type: essential hypertension Qualified Code(s): I10 - Essential (primary) hypertension (5) Anemia Qualifiers: Anemia type: other cause Other causes of anemia: other cause, not classified Qualified Code(s): D64.89 - Other specified anemias (8) Diabetes Qualifiers: Diabetes mellitus type: type 2 Diabetes mellitus assisted insulin use: unspecified terminal manager insulin use status Diabetes mellitus complication status: with unspecified complications Qualified Code(s): E11.8 - Type 2 diabetes mellitus with unspecified complications
[2017-12-29] MEDS: cephALEXin 500 MG CAPSULE PO SCH ×2 (12:12→21:51)
[2017-12-29] MEDS: Fluconazole 100 MG TABLET PO SCH (12:12)
[2017-12-29] MEDS: (Enzalutamide [Xtandi] 40 MG) PO SCH (17:50)
[2017-12-29] MEDS: *HR* OxyCODONE Immed Rel 15 MG TABLET PO PRN (19:19)
[2017-12-29] MEDS: Insulin DETEMIR 100 UNIT/ML X5UNITS SQ SCH (21:52)
[2017-12-30 04:40] LABS: Basophils % 0.6 %; Eosinophils # 0.6 K/mcL (0.0-0.6); Eosinophils % 10.9 %; Hematocrit 30.6 % (37.5-50.1); Hemoglobin 10.3 g/dL (12.9-16.9); Immature Granulocytes % 0.8 % (0-4); Lymphocytes # 0.8 K/mcL (0.6-4.6); Lymphocytes % 15.3 %; Mean Corpuscular HGB Conc 33.7 g/dL (31.6-35.5); Mean Corpuscular Volume 89.2 fL (83.0-100.0); Mean Platelet Volume 9.1 fL (9.4-12.4); Monocytes # 0.6 K/mcL (0.0-1.3); Monocytes % 11.4 %; Neutrophils # 3.2 K/mcL (1.6-8.9); Platelet Count 286 K/mcL (140-400); Red Blood Count 3.43 M/mcL (4.19-5.50); Red Cell Distribution Width 14.2 % (11.5-14.5)
[2017-12-30 04:46] LABS: Potassium 3.8 mEq/L (3.5-5.1)
[2017-12-30] MEDS: *HR* OxyCODONE Immed Rel 15 MG TABLET PO PRN ×2 (05:27→23:32)
[2017-12-30] MEDS: Ondansetron 4 MG/2 ML VIAL IVP SCH ×4 (05:28→23:23)
[2017-12-30] MEDS: *HR* Heparin 5,000 UNIT/ML VIAL SQ SCH ×3 (05:32→20:18)
[2017-12-30] MEDS: Lactobacillus 1 EACH CAP.SPRINK PO SCH (08:58)
[2017-12-30] MEDS: cephALEXin 500 MG CAPSULE PO SCH ×2 (08:59→20:19)
[2017-12-30] MEDS: Diltiazem CD (24hr) 240 MG CAPSULE PO SCH (08:59)
[2017-12-30] MEDS: Multivit/Ca/Min/Fe/FA 1 TAB TABLET PO SCH (08:59)
[2017-12-30] MEDS: Cyanocobalamin (B-12) 1,000 MCG TABLET PO SCH (09:00)
[2017-12-30] MEDS: Gabapentin 100 MG CAPSULE PO SCH (09:00)
[2017-12-30] MEDS: Fluconazole 100 MG TABLET PO SCH (09:00)
[2017-12-30] MEDS: Insulin LISPRO 300 UNITS/3 ML VIAL SQ SCH ×6 (09:03→17:15)
[2017-12-30] MEDS ORDERED: Aminoglycoside Consult 1 EACH MC ONE (11:00)
--- NOTE | 2017-12-30 11:44 | Internal Med Progress Note ---
Hospitalist Progress Note - Encounter Date of Encounter: 12/30/17 Time of Encounter: 11:42 - Subjective Interval History: Pt still having nausea requiring IV zofran. denies fever, chills, or night sweats. - Exam Vitals: Temp Pulse Resp BP Pulse Ox 98.2 F 88 18 133/79 91 12/30/17 07:36 12/30/17 07:36 12/30/17 07:36 12/30/17 07:36 12/30/17 07:36 Exam: PHYSICAL EXAMINATION: GENERAL APPEARANCE: The patient is alert, oriented and in no acute distress. HEENT: Head is normocephalic. The sinuses are nontender. Pupils are equal and reactive. The nares are patent. Oropharynx clear without lesions. NECK: Supple without lymphadenopathy. HEART: Regular rate and rhythm. LUNGS: No crackles or wheezes are heard. ABDOMEN: Soft, nontender, nondistended with good bowel sounds heard. Inguinal area is normal. EXTREMITIES: Without cyanosis, clubbing or edema. NEUROLOGICAL: Gross nonfocal. SKIN: Warm and dry without any rash. - Assessment and Plan (1) Intractable nausea and vomiting Current Visit: No Status: Resolved Assessment and Plan: Probably secondary to UTI and chemotherapy continue symptomatic and supportive care IV hydration, continue IV Zofran and Phenergan. (2) Complicated UTI (urinary tract infection) Current Visit: No Status: Acute Assessment and Plan: has bilateral nephrostomy tubes with positive urine and bilateral flank tenderness CT of A/P did not show any obstruction and no pyelonephritis His UA - showed esterase and many bacteria his Urine did grow E. Coli, Enteroccocus species and Staph in the past Unable to switch to Bactrim and Macrobid due to his CKD-3 Current Urine cx grown Yeast so far so will switch to Ancef + Continue Vancomycin for now, plan to switch to oral abx tomorrow. Also added Diflucan 100mg Daily x 7 days (3) Hypertension Current Visit: No Status: Chronic Assessment and Plan: BP controlled, continue home dose cardizem and losartan (4) Anemia Current Visit: No Status: Chronic Assessment and Plan: Chronic Anemia, stable receives aranesp through nephrology Baseline Hgb is variable with most recent being 10.3-12.2 (5) Prostate cancer Current Visit: No Status: Acute Assessment and Plan: follows with Heme Onc at [place] and [facility] continue home pain medications (6) Kidney stones Current Visit: No Status: Acute Assessment and Plan: CT of Abd / Pelvis did not show any active calculi now (7) Diabetes Current Visit: No Status: Chronic Assessment and Plan: ADA diet Cont ISS + Levemir Started on pre meal insulin 5U TID (8) Chronic kidney disease, stage III (moderate) Current Visit: No Status: Chronic Assessment and Plan: CKD 3 stable creatinine at baseline (9) DVT prophylaxis Current Visit: No Status: Acute Assessment and Plan: heparin SC - Time Spent with Patient Total time spent is greater than 50% in coordination of care (as documented) at patient's floor/unit and/or counseling patient: Greater than 35 minutes Plan of Care Discussed with: patient Internal Medicine: Result - Labs CBC & Chem 7: 12/30/17 04:09 12/30/17 04:09 Labs: Short CBC 12/30/17 Range/Units 04:09 WBC 5.2 (4.3-11.1) K/mcL Hgb 10.3 L (12.9-16.9) g/dL Hct 30.6 L (37.5-50.1) % Plt Count 286 (140-400) K/mcL Neutrophils # 3.2 (1.6-8.9) K/mcL BMP 12/30/17 04:09 Sodium 135 L Potassium 3.8 Chloride 103 Carbon Dioxide 25 BUN 31 H Creatinine 2.22 H Glucose 194 H Calcium 9.0 - ABG Interpretation ABG results: PT/INR, D-dimer PT 11.7 Seconds (9.4-12.1) 12/27/17 13:53 Consult Discharge Plan - Plan Referrals: Saleem Ramirez DO [Primary Care Provider] - (Your appointment has been requested our office will call you with follow up.) (1) Intractable nausea and vomiting Qualifiers: Vomiting type: unspecified Qualified Code(s): R11.2 - Nausea with vomiting, unspecified (3) Hypertension Qualifiers: Hypertension type: essential hypertension Qualified Code(s): I10 - Essential (primary) hypertension (4) Anemia Qualifiers: Anemia type: other cause Other causes of anemia: other cause, not classified Qualified Code(s): D64.89 - Other specified anemias (7) Diabetes Qualifiers: Diabetes mellitus type: type 2 Diabetes mellitus shelter insulin use: unspecified termite control servicer insulin use status Diabetes mellitus complication status: with unspecified complications Qualified Code(s): E11.8 - Type 2 diabetes mellitus with unspecified complications
[2017-12-30] MEDS: (Enzalutamide [Xtandi] 40 MG) PO SCH (17:15)
[2017-12-30] MEDS: Insulin DETEMIR 100 UNIT/ML X5UNITS SQ SCH (20:19)
[2017-12-31 04:27] LABS: Basophils % 0.7 %; Eosinophils # 0.4 K/mcL (0.0-0.6); Eosinophils % 9.4 %; Hematocrit 30.9 % (37.5-50.1); Hemoglobin 10.3 g/dL (12.9-16.9); Immature Granulocytes % 1.1 % (0-4); Lymphocytes # 0.8 K/mcL (0.6-4.6); Lymphocytes % 16.6 %; Mean Corpuscular HGB Conc 33.3 g/dL (31.6-35.5); Mean Corpuscular Hemoglobin 30.1 pg (28.0-33.3); Mean Corpuscular Volume 90.4 fL (83.0-100.0); Mean Platelet Volume 9.2 fL (9.4-12.4); Monocytes # 0.5 K/mcL (0.0-1.3); Monocytes % 11.8 %; Neutrophils # 2.8 K/mcL (1.6-8.9); Platelet Count 269 K/mcL (140-400); Red Blood Count 3.42 M/mcL (4.19-5.50); Red Cell Distribution Width 14.4 % (11.5-14.5); Segmented Neutrophils % 60.4 %
[2017-12-31 04:46] LABS: Potassium 4.1 mEq/L (3.5-5.1)
[2017-12-31] MEDS: Ondansetron 4 MG/2 ML VIAL IVP SCH (05:32)
[2017-12-31] MEDS: *HR* Heparin 5,000 UNIT/ML VIAL SQ SCH (07:01)
[2017-12-31 07:37] VITALS: BP 136/81
[2017-12-31] MEDS ORDERED: Nitrofurantoin (BID) 100 MG CAPSULE PO SCH (08:00)
[2017-12-31] MEDS: Insulin LISPRO 300 UNITS/3 ML VIAL SQ SCH ×2 (08:27→08:29)
[2017-12-31] MEDS: Diltiazem CD (24hr) 240 MG CAPSULE PO SCH (08:30)
[2017-12-31] MEDS: Multivit/Ca/Min/Fe/FA 1 TAB TABLET PO SCH (08:30)
[2017-12-31] MEDS: cephALEXin 500 MG CAPSULE PO SCH (08:30)
[2017-12-31] MEDS: Fluconazole 100 MG TABLET PO SCH (08:31)
[2017-12-31] MEDS: Lactobacillus 1 EACH CAP.SPRINK PO SCH (08:31)
[2017-12-31] MEDS: Gabapentin 100 MG CAPSULE PO SCH (08:31)
[2017-12-31] MEDS: Cyanocobalamin (B-12) 1,000 MCG TABLET PO SCH (08:38)
--- NOTE | 2017-12-31 09:10 | Urology Progress Note ---
Date of Encounter: 12/31/17 Time of Encounter: 09:08 - Assessment and Plan (1) Complicated UTI (urinary tract infection) Current Visit: No Status: Acute Assessment and plan: There is yeast growing from the urine. This again is likely colonization because of the chronic nephrostomy tubes. I feel it is reasonable to treat with antifungal because he has been symptomatic. Send to confirm no resistance. Patient states his nausea still present but improved. He feels he is potentially ready for discharge. follow up with [facility] for definitive management of his metastatic prostate cancer Progress Note Subjective: feels better, nausea Objective Initial Vital Signs Temp Pulse Resp BP Pulse Ox 97.8 F 91 18 150/96 97 12/27/17 12:52 12/27/17 12:52 12/27/17 12:52 12/27/17 12:52 12/27/17 12:52 - General physical appearance Present: no distress - Additional Exam urine clear. - Labs 12/31/17 03:42 12/31/17 03:42 Diabetes panel 12/31/17 Range/Units 03:42 Sodium 137 (136-145) mEq/L Potassium 4.1 (3.5-5.1) mEq/L Chloride 105 (98-107) mEq/L Carbon Dioxide 22 L (23-29) mEq/L BUN 31 H (8-23) mg/dL Creatinine 2.47 H (0.70-1.30) mg/dL Glucose 222 H (70-105) mg/dL Calcium 9.0 (8.6-10.3) mg/dL Calcium panel 12/31/17 Range/Units 03:42 Calcium 9.0 (8.6-10.3) mg/dL Pituitary panel 12/31/17 Range/Units 03:42 Sodium 137 (136-145) mEq/L Potassium 4.1 (3.5-5.1) mEq/L Chloride 105 (98-107) mEq/L Carbon Dioxide 22 L (23-29) mEq/L BUN 31 H (8-23) mg/dL Creatinine 2.47 H (0.70-1.30) mg/dL Glucose 222 H (70-105) mg/dL Calcium 9.0 (8.6-10.3) mg/dL Adrenal panel 12/31/17 Range/Units 03:42 Sodium 137 (136-145) mEq/L Potassium 4.1 (3.5-5.1) mEq/L Chloride 105 (98-107) mEq/L Carbon Dioxide 22 L (23-29) mEq/L BUN 31 H (8-23) mg/dL Creatinine 2.47 H (0.70-1.30) mg/dL Glucose 222 H (70-105) mg/dL Calcium 9.0 (8.6-10.3) mg/dL Consult Discharge Plan - Plan Referrals: Saleem Ramirez DO [Primary Care Provider] - (Your appointment has been requested our office will call you with follow up.)
--- NOTE | 2017-12-31 09:27 | Electrocardiograph Report ---
[place] [id number] Test Date: 2017-12-27 Pat Name: Faustino Rivera Department: [id number] Room: 3A52 Gender: M Drawer In Dobby Loom: : 1950 Requested By: Garrett Medley Order Number: [id number] Reading MD: Linh Biswas Measurements Intervals [place] Rate: 82 P: 28 UT: 183 QRS: -1 QRSD: 96 T: 48 QT: 387 QTc: 452 Interpretive Statements Sinus rhythm RSR' in V1 or V2, probably normal variant Electronically Signed On 12-31-2017 9:26:01 EST by Linh Biswas
--- NOTE | 2017-12-31 09:36 | Discharge Summary ---
- NOTES TO OUTPATIENT PROVIDER Notes to Outpatient Provider: f/u with PCP within a week. f/u with [facility] oncology within 2-4 weeks. f/u with Urology within 2-4 weeks. Orders not resulted at time of discharge: Pending orders 12/27/17 13:53 Culture,Blood [BC] Stat 12/27/17 15:55 Culture,Urine [RM] Stat Date of Encounter: 12/31/17 Time of Encounter: 09:34 - Discharge Diagnosis (1) Intractable nausea and vomiting Priority: Primary Status: Acute Qualifiers: Vomiting type: unspecified Qualified Code(s): R11.2 - Nausea with vomiting, unspecified (2) Complicated UTI (urinary tract infection) Priority: Primary Status: Acute (3) Hypertension Priority: Secondary Status: Chronic Qualifiers: Hypertension type: essential hypertension Qualified Code(s): I10 - Essential (primary) hypertension (4) Anemia Priority: Secondary Status: Chronic Qualifiers: Anemia type: other cause Other causes of anemia: other cause, not classified Qualified Code(s): D64.89 - Other specified anemias (5) Prostate cancer Priority: Secondary Status: Chronic (6) Kidney stones Priority: Secondary Status: Chronic (7) Diabetes Priority: Secondary Status: Chronic Qualifiers: Diabetes mellitus type: type 2 Diabetes mellitus ferry terminal agent insulin use: unspecified mcc insulin use status Diabetes mellitus complication status: with unspecified complications Qualified Code(s): E11.8 - Type 2 diabetes mellitus with unspecified complications (8) Chronic kidney disease, stage III (moderate) Priority: Secondary Status: Chronic (9) DVT prophylaxis Priority: Primary Status: Acute Hospital course: Miguel is a 67 year old male with a history of prostate cancer and 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 as per patient his symptoms started about 1 week prior to admission with weakness and fatigue and gradually he lost his appetite and developed fever and chills along with foul smelling urine from his bilateral nephrostomy tubes. UTI was suspected and he was treated with oral Keflex and IV vancomycin based on the sensitivity results on 10/16/2017, Urine cx also grew arline, oral dif lucan was prescribed. His N/V have been managed with IV zofran and phenergan. His symptoms have improved. On the discharge day, he is afebrile, N/V have much improved. He will be discharged home today, he was instructed to continue oral chemotherapy agent. He will continue to take oral abx including Nitrofuratoin, Keflex, and Diflucan for a total of 7 days. He will continue to f/u with PCP, oncology at [facility], and urology as scheduled. Discharge discussed with: patient, family Time spent discussing smoking cessation with patient: more than 10 minutes - Time Spent with Patient Total time spent providing and/or coordinating discharge services: Greater than 30 minutes - Discharge Medications Prescriptions: cephALEXin [Keflex] 500 mg PO BID #14 capsule Fluconazole [Diflucan] 100 mg PO DAILY #7 tablet Nitrofurantoin (BID) [Macrobid] 100 mg PO BIDWM #14 capsule Ondansetron HCl [Zofran] 8 mg PO BID PRN #30 tablet PRN Reason: NAUSEA/VOMITING Home Medications: Insulin DETEMIR [Levemir] 30 unit SQ HS 30 Days [id number] 01/19/16 [Rx] Sertraline [Zoloft] 25 mg PO DAILY 04/13/16 [History] Insulin ASPART [Novolog Flexpen] 10 - 15 unit SQ TID 11/17/16 [History] Diltiazem CD (24hr) [Cardizem CD] 240 mg PO DAILY 12/15/16 [History] Lactobacillus Combination No.9 [Adult 50 + Probiotic] 1 cap PO DAILY 03/19/17 [History] Multivit-Min/FA/Lycopen/Lutein [Centrum Silver Men Tablet] 1 tab PO DAILY 04/25/17 [History] Gabapentin [Neurontin] 100 mg PO DAILY 10/16/17 [History] Losartan [Cozaar] 25 mg PO BID 10/16/17 [History] Cyanocobalamin (Vitamin B-12) [Vitamin B-12] 5,000 mcg SL DAILY 11/28/17 [History] Enzalutamide [Xtandi] 80 mg PO 1700 12/27/17 [History] Oxycodone HCl 15 mg PO Q8H PRN 12/27/17 [History] Esomeprazole Magnesium [Nexium] 20 mg PO DAILY 12/28/17 [History] Fluconazole [Diflucan] 100 mg PO DAILY #7 tablet 12/31/17 [Rx] Nitrofurantoin (BID) [Macrobid] 100 mg PO BIDWM #14 capsule 12/31/17 [Rx] Ondansetron HCl [Zofran] 8 mg PO BID PRN #30 tablet 12/31/17 [Rx] cephALEXin [Keflex] 500 mg PO BID #14 capsule 12/31/17 [Rx] Allergies/Adverse Reactions: Allergy/AdvReac Type Severity Reaction Status Date / Time tegaderm AdvReac Blister Uncoded 12/27/17 12:54 Date of admission: 12/27/17 16:39 Primary care physician: Saleem Ramirez DO Consults: 12/27/17 17:39 Consult to Urology [CONS] Routine Consulting Provider: Urology D[facility] Reason for Consult: bilateral nephrostomy tubes with complicated UTI - follows with [facility] urology as OP Call Completed: No Anticipated date of discharge: 12/31/17 - Constitutional Vitals: Temp Pulse Resp BP Pulse Ox 97.9 F 70 18 136/81 94 12/31/17 07:30 12/31/17 07:30 12/31/17 07:30 12/31/17 07:30 12/31/17 07:30 General appearance: Present: cooperative, A&O X 3, answers questions appropriately Exam: PHYSICAL EXAMINATION: GENERAL APPEARANCE: The patient is alert, oriented and in no acute distress. HEENT: Head is normocephalic. The sinuses are nontender. Pupils are equal and reactive. The nares are patent. Oropharynx clear without lesions. NECK: Supple without lymphadenopathy. HEART: Regular rate and rhythm. LUNGS: No crackles or wheezes are heard. ABDOMEN: Soft, nontender, nondistended with good bowel sounds heard. Inguinal area is normal. EXTREMITIES: Without cyanosis, clubbing or edema. NEUROLOGICAL: Gross nonfocal. SKIN: Warm and dry without any rash. - Patient Status Disposition: Home, Self-Care Condition: Good Functional capacity at discharge: independent ambulation Overall status at discharge: patient is progressing back to baseline - Discharge Instructions Follow Up With: Saleem Ramirez DO [Primary Care Provider] - (Your appointment has been requested our office will call you with follow up.) - Diet and Activity Activity: increase activity as tolerated Diet: advance to your usual diet
== END 2017-12-31 11:01 | disposition home or self-care (01) | DRG 728 ==
LOC: EMEROOARM 12:44 → 3BNU 12:44 → OBSVTOIN 16:39 → SUATTDRO 16:39 → 3BNU 17:38 → 3ANU 12-30 22:25
PROVIDERS: ADMIT Internal Medicine; ATTEND Internal Medicine

== ENCOUNTER 2018-10-09 12:06 | Inpatient (IN) ==
[2018-10-09] MEDS ORDERED: Ondansetron 4 MG/2 ML VIAL IVP ONE ×2 (13:18→16:44)
[2018-10-09] MEDS ORDERED: 0.9 % Sodium Chloride 1,000 ML IVC ONE ×2 (13:18→16:44)
--- NOTE | 2018-10-09 13:39 | Emergency Department Note ---
Disposition Clinical Impression: Dehydration Nausea & vomiting Qualifiers: Vomiting type: unspecified Vomiting Intractability: non-intractable Qualified Code(s): R11.2 - Nausea with vomiting, unspecified UTI (urinary tract infection) Qualifiers: Urinary tract infection type: acute cystitis Hematuria presence: with hematuria Qualified Code(s): N30.01 - Acute cystitis with hematuria Disposition: Admitted As Inpatient Forms: ED Satisfaction Letter Time of Disposition: 17:35 Nausea/Vomiting/Diarrhea HPI - General Chief complaint: ED Nausea/Vomiting/Diarrhea Stated complaint: Dehydration,Cancer Pt Time Seen by Provider: 10/09/18 13:11 Source: patient Mode of arrival: ambulatory Limitations: no limitations Nursing Notes Reviewed: Yes Vital Signs Reviewed: Yes - History of Present Illness HPI Narrative: 68M with PMHx of metastatic prostate cancer, DM, HTN and HLD presents the emergency department with concerns for dehydration. Patient recently started a new chemotherapeutic agent on Monday and has been feeling ill since this weekend. He had one episode of vomiting yesterday and has been having diarrhea for the past 2 days. He also has bilateral nephrostomy tubes and his is concerned as he is very prone to urinary tract infections and he becomes dehydrated. He denies any blood in his emesis and states he has noted some bright red blood on his stool in the toilet fever that he thinks is secondary to his hemorrhoids. He has not been eating or drinking much the past several days due to his nausea and diarrhea. He has generalized abdominal pain but no other complaints at this time. He denies fever, chills, chest pain, shortness of breath. states that the patient does not seem confused to her just more somnolent than normal. - Related Data Home Medications Medication Instructions Recorded Confirmed Sertraline [Zoloft] 25 mg PO DAILY 04/13/16 08/14/18 Insulin ASPART [Novolog Flexpen] 10 - 15 unit SQ TIDWM 11/17/16 08/14/18 Diltiazem CD (24hr) [Cardizem CD] 240 mg PO DAILY 12/15/16 08/14/18 Gabapentin [Neurontin] 100 mg PO HS 10/16/17 08/14/18 Losartan [Cozaar] 25 mg PO BID 10/16/17 08/14/18 Oxycodone HCl 15 mg PO Q8H PRN 12/27/17 08/14/18 Insulin DETEMIR [Levemir] 30 unit SQ HS 02/28/18 08/14/18 Denosumab [Xgeva] 0 mg [id number] 05/20/18 08/14/18 Dexamethasone [Decadron] 8 mg PO AD 05/20/18 08/14/18 Leuprolide Acetate [Lupron Depot] 0 mg IM [id number] 05/20/18 08/14/18 Lubiprostone [Amitiza] 24 mcg PO BID PRN 05/20/18 08/14/18 Oxycodone HCl [Oxycontin] 10 mg PO Q12H 05/20/18 08/14/18 Prochlorperazine Maleate 10 mg PO TID 05/20/18 08/14/18 [Compazine] predniSONE [PredniSONE] 5 mg PO BIDWM 05/20/18 08/14/18 DOCEtaxel [Taxotere] 0 mg IV Q3W 06/05/18 08/14/18 OLANZapine [Zyprexa] 5 mg PO HS 08/14/18 08/14/18 Previous Rx's Medication Instructions Recorded Ondansetron HCl [Zofran] 4 mg PO TID PRN #30 tablet 06/12/18 Allergies Allergy/AdvReac Type Severity Reaction Status Date / Time No Known Allergies Allergy Verified 10/09/18 12:16 All systems ED: reviewed and negative except as stated. Review of Systems: As Per HPI Constitutional: Reports: weakness. Denies: fever, chills Cardiovascular: Denies: chest pain, palpitations, dyspnea on exertion Respiratory: Denies: cough, dyspnea, wheezes Gastrointestinal: Reports: abdominal pain, nausea, vomiting, diarrhea, hematochezia. Denies: constipation, hematemesis, melena Musculoskeletal: Denies: back pain, neck pain Neurological: Denies: headache Endocrine: Reports: fatigue Past Medical History - Past Medical History Attestation: Yes The following information was validated with the patient. Source: patient Medical history: Reports: cancer, diabetes, hyperlipidemia, hypertension, other Surgical history: Reports: cholecystectomy, orthopedic, other, ureteral stent, other Psychiatric history: Reports: depression - Social History Smoking Status: Never smoker Smokeless Tobacco Status: No Alcohol use: Reports: none Drug use: Reports: none Physical Exam - General Limitations: no limitations General appearance: alert, in no apparent distress - Head Head exam: atraumatic, normocephalic - Eye Eye exam: Present: normal appearance, EOMI - Chest Chest inspection: Present: normal inspection. Absent: tenderness, rash - Respiratory Respiratory exam: Present: normal lung sounds bilaterally. Absent: wheezes - Cardiovascular Cardiovascular exam: Present: normal rhythm, tachycardia - Abdominal Exam Abdominal exam: Present: soft, tenderness. Absent: distention, guarding, rebound, rigidity, Gregg's sign, tenderness at McBurney's Point Abdominal tenderness: Present: diffuse, mild - Extremities Exam Extremities exam: Present: normal inspection. Absent: tenderness, pedal edema - Neurological Exam Neurological exam: Present: alert, oriented X3, other (generalized weakness) - Psychiatric Psychiatric exam: Present: flat affect - Skin Skin exam: Present: warm, dry, intact Course Vital Signs Temperature 98.1 F 10/09/18 12:13 Pulse Rate 118 10/09/18 12:13 Respiratory Rate 18 10/09/18 12:13 Blood Pressure 122/82 10/09/18 12:13 O2 Sat by Pulse Oximetry 94 10/09/18 12:13 Temperature 98.1 F 10/09/18 12:13 Pulse Rate 109 10/09/18 15:34 Respiratory Rate 20 10/09/18 15:34 Blood Pressure 155/101 10/09/18 15:34 O2 Sat by Pulse Oximetry 97 10/09/18 15:34 Oxygen Delivery Oxygen Delivery Room Air Nausea/Vomiting/Diarrhea - [facility] Narrative Medical decision making narrative: Patient presents with vomiting and diarrhea after beginning a new chemotherapeutic agent with concerns for dehydration. Will obtain basic labs, urinalysis and administer IV fluids and Zofran for the patient's suspected dehydration. 1700 - patient's labs show improvement in his kidney function from previous without any other significant abnormalities. Urinalysis shows blood and other signs of possible infection. Patient is feeling worse than upon arrival and after administration of a liter of normal saline and 4 mg of Zofran. We will administer another dose of Zofran with IV fluids and plan on admission to the hospital. Hospitalist has been paged. 1733 - patient has been accepted by the hospitalist Dr. Gomes. An abdominal CT, blood cultures and lactic acid have been ordered for this patient as well as a dose of Rocephin. - Medical Records Medical records reviewed: Yes I reviewed the patient's medical records. - Lab Data Lab results reviewed: Yes I reviewed the patient's lab results. Result diagrams: 10/09/18 14:12 10/09/18 14:12 Lab Results 10/09/18 10/09/18 10/09/18 Range/Units 14:12 14:12 15:26 WBC 3.2 L (4.3-11.1) K/mcL RBC 3.79 L (4.19-5.50) M/mcL Hgb 11.6 L (12.9-16.9) g/dL Hct 36.4 L (37.5-50.1) % MCV 96.0 (83.0-100.0) fL MCH 30.6 (28.0-33.3) pg MCHC 31.9 (31.6-35.5) g/dL RDW 14.3 (11.5-14.5) % Plt Count 216 (140-400) K/mcL MPV 9.4 (9.4-12.4) fL Seg Neutrophils % 78.0 % Band Neutrophils % 4.0 (0-4) % Lymphocytes % 16.0 % Basophils % 2.0 % Neutrophils # 2.6 (1.6-8.9) K/mcL Lymphocytes # 0.5 L (0.6-4.6) K/mcL Basophils # 0.1 (0.0-0.2) K/mcL Platelet Estimate Normal (Normal) Sodium 137 (136-145) mEq/L Potassium 4.3 (3.5-5.1) mEq/L Chloride 106 (98-107) mEq/L Carbon Dioxide 23 (23-29) mEq/L BUN 27 H (8-23) mg/dL Creatinine 1.71 H (0.70-1.30) mg/dL Est GFR ( Amer) 48 L (> 60) Est GFR (Non-Af Amer) 40 L (> 60) BUN/Creatinine Ratio 16 (6-26) Glucose 292 H (70-105) mg/dL Calculated Osmolality 300 (280-300) Calcium 8.2 L (8.6-10.3) mg/dL Total Bilirubin 0.6 (0.3-1.0) mg/dL AST 10 L (13-39) Units/L ALT 14 (7-52) Units/L Alkaline Phosphatase 63 (34-104) Units/L Serum Total Protein 6.4 (6.4-8.9) g/dL Albumin 3.7 (3.5-5.7) g/dL Globulin 2.7 (2.4-3.5) g/dL Albumin/Globulin Ratio 1.4 (1.1-2.2) Urine Color Yellow (Yellow) Urine Clarity Turbid A (Clear) Urine pH 6.0 (5.0-8.0) pH Units Ur Specific [place] 1.015 (1.010-1.025) Urine Protein >=300 H (Neg-Trace) mg/dL Urine Glucose (UA) 250 H (Normal) mg/dL Urine Ketones Negative (Negative) mg/dL Urine Blood Moderate H (Negative) Urine Nitrite Positive A (Negative) Urine Bilirubin Negative (Negative) Urine Urobilinogen Normal (Normal) mg/dL Ur Leukocyte Esterase Large H (Negative) Urine Microscopic RBC 5-15 H (0-3) per hpf Urine Microscopic WBC TNTC H (0-3) per hpf Urine Bacteria Many H (None-Few) per hpf Urine Yeast Few H (None Seen) per hpf Ur Culture Indicated? YES A (NO) - EKG Data EKG attestation: Yes I reviewed and interpreted this EKG. EKG results narrative: EKG obtained at 1528 on 10/09/2018 Heart rate 109 bpm, DE interval 166, QRS duration 78, QT 320, QTC 431 Sinus tachycardia without any evidence of ST segment elevations or depressions. No QT prolongation. Incomplete right bundle-branch block. No other acute abnormalities when compared to previous EKG dated 06/05/2018. EKG obtained at 1722 on 10/09/2018 shows sinus tachycardia at 109 bpm without any changes from previous exam. Attestation Statement - Attestation Attestation: I, Anthony Solis, examined this patient and my medical decision-making was reviewed with the SPUN PASTE MACHINE OPERATOR/PA/Advanced Practice Nurse/Resident Physician. I agree with the documented findings, disposition and treatment plan as described except to the extent set forth below. 68-year-old male presents emergency department for evaluation of nausea and vomiting. Family members present in the room who states that he has recently started a new chemotherapy medication and that he has had persistent nausea and vomiting and diarrhea since that time. They were warned about this by the oncologist. The family was concerned about possible dehydration because of the nausea and vomiting. Family member states he has chronic urinary tract infection secondary to nephrostomy tubes. He has been evaluated multiple times by the urologist and infectious disease specialist for urinary tract infections in the past. Family member states the patient has been mildly more weak and fatigued over the past few days however she believes it was secondary to the nausea and vomiting. Patient is afebrile in the emergency department. Bilateral nephrostomy tubes were replaced 2 weeks ago and and have been draining appropriately. Tachycardia did improve in the emergency department but did not resolve after IV fluids. Patient has a urinalysis which shows large amounts of bacteria however the family member states that this is chronic. Patient was started on antibiotics in emergency department for treatment of a possible urinary tract infection. Patient will be admitted to the hospitalist for further care and evaluation. Upon speaking with the hospitalist there is concern about possible obstruction of the nephrostomy tubes however the tubes are draining appropriately and his creatinine is improved compared to his previous lab results.
[2018-10-09 14:27] LABS: Hematocrit 36.4 % (37.5-50.1); Hemoglobin 11.6 g/dL (12.9-16.9); Lymphocytes # 0.5 K/mcL (0.6-4.6); Mean Corpuscular HGB Conc 31.9 g/dL (31.6-35.5); Mean Corpuscular Hemoglobin 30.6 pg (28.0-33.3); Mean Platelet Volume 9.4 fL (9.4-12.4); Platelet Count 216 K/mcL (140-400); Red Blood Count 3.79 M/mcL (4.19-5.50); Red Cell Distribution Width 14.3 % (11.5-14.5); White Blood Count 3.2 K/mcL (4.3-11.1)
[2018-10-09 14:46] LABS: Albumin 3.7 g/dL (3.5-5.7); Albumin/Globulin Ratio 1.4 (1.1-2.2); Bilirubin,Total 0.6 mg/dL (0.3-1.0); Calcium 8.2 mg/dL (8.6-10.3); Globulin 2.7 g/dL (2.4-3.5); Potassium 4.3 mEq/L (3.5-5.1); Total Protein 6.4 g/dL (6.4-8.9)
[2018-10-09 15:12] LABS: Basophils # 0.1 K/mcL (0.0-0.2); Neutrophils # 2.6 K/mcL (1.6-8.9)
[2018-10-09 15:13] LABS: Platelet Estimate Normal (Normal)
[2018-10-09 16:33] LABS: Bilirubin,Urine Negative (Negative); Blood,Urine Moderate (Negative); Clarity,Urine Turbid (Clear); Color,Urine Yellow (Yellow); Glucose,Urine (UA) 250 mg/dL (Normal); Ketones,Urine Negative (Negative); Leukocyte Esterase,Urine Large (Negative); Nitrite,Urine Positive (Negative); Protein,Urine >=300 mg/dL (Neg-Trace); Specific Gravity,Urine 1.015 (1.010-1.025); Urobilinogen,Urine Normal (Normal)
[2018-10-09 16:39] LABS: Bacteria,Urine Many per hpf (None-Few); WBC,Urine TNTC per hpf (0-3)
[2018-10-09 16:40] LABS: Yeast,Urine Few per hpf (None Seen)
[2018-10-09] MEDS ORDERED: cefTRIAXone 1,000 MG in Water for inj. (sterile) 10 ML IVP ONE (16:44)
[2018-10-09] MEDS ORDERED: Acetaminophen 325 MG TABLET PO PRN (20:59)
[2018-10-09] MEDS ORDERED: Naloxone 0.4 MG/ML INJ IVP PRN (20:59)
[2018-10-09] MEDS ORDERED: *HR* Dextrose 50 % in Water (Syg) 50 ML SYRINGE IVP PRN (20:59)
[2018-10-09] MEDS ORDERED: traMADol 50 MG TABLET PO PRN (20:59)
[2018-10-09] MEDS ORDERED: Dextrose Gel 15 GM/37.5 ML TUBE PO PRN ×2 (20:59)
[2018-10-09] MEDS ORDERED: *HR* OxyCODONE Immed Rel 5 MG TABLET PO PRN (21:02)
[2018-10-09] MEDS ORDERED: Ringers Solution, Lactated 1,000 ML IVC SCH (21:15)
[2018-10-09] MEDS: Ondansetron ODT 4 MG TAB.RAPDIS PO PRN (22:27)
[2018-10-09] MEDS: OLANZapine 5 MG TAB.RAPDIS PO SCH (22:28)
[2018-10-09] MEDS: Insulin DETEMIR 100 UNIT/ML X5UNITS SQ SCH (22:40)
[2018-10-09] MEDS: Insulin LISPRO 300 UNITS/3 ML VIAL SQ SCH (22:43)
--- NOTE | 2018-10-09 22:53 | Internal Med History&Physical ---
Date of Encounter: 10/09/18 Time of Encounter: 22:51 Internal Medicine - H&P: HPI Chief complaint: abdominal pain Admitted From: Home Plans for Post Hospital Care: Home History of present illness: Faustino Rivera is a 68-year-old man with diabetes, hypertension, chronic kidney disease and metastatic prostate cancer diagnosed in January 2016 that already had lymphovascular and perineural invasion present at the time of diagnosis. He currently has bilateral nephrostomy tubes in place due to o bstructive uropathy caused by the prostate cancer invasion. He has been receiving palliative radiation therapy and is currently on chemotherapy. He presents to the emergency room with generalized weakness, fatigue and malaise over the past 3 days which she believes may be from his chemotherapeutic agent. He has been nauseated and 1 episode of vomiting yesterday but reports having watery diarrhea and generalized abdominal cramping. His appetite has been poor and has not been eating or drinking much because of the symptoms. His was also concerned that he may have a urinary tract infection as he has had this multiple times in the past. In the ER he was notably tachycardic on arrival his blood pressure was within normal limits. Lab work revealed a leukocyte count of 3.2 and urinalysis showed nitrites, leukocyte esterase and significant pyuria. He was given a dose of ceftriaxone in the emergency room because of this. Of note, prior urinalyses were reviewed and they follow the same pattern. He is admitted for further evaluation. Vitals: Reviewed General: Elderly obese man who appears older than stated age and notably asthenic Skin: Warm, dry and pale HEENT: Dry mucous membranes. Mild conjunctivae pallor. Neck: No lymphadenopathy. No JVD. No carotid bruits. No palpable thyroid. Chest: Normal thoracic expansion. Normal breath sounds. Clear to auscultation. Heart: Normal S1 & S2; rhythmic. No rubs or murmurs. Abdomen: Distended, soft and mildly tender to palpation diffusely. No peritoneal reaction. Extremities: No clubbing, cyanosis or edema. No calf tenderness. Normal distal pulses. Neurological: Awake, alert and oriented to person, place and time. No focal de ficits. Psych: Affect flat. Assessment/Plan 1. SIRS: As evidenced by leukopenia and tachycardia. Concern for an infectious process is present given his elderly and immunocompromised state. The concern for a cUTI exists given the UA findings however having nephrostomy tubes typically always gives a UA as such as we see in his case with chronic findings and growth of yeast suggesting colonization. The clinical presentation is what needs to be factored in really and at this point it is plausible for which reason we will send the urine for culture and keep him on ceftriaxone empirically. There is also concern for gastroenteritis as he complains of abdominal cramping and diarrhea therefore will send a GI panel and based on the results further action will be taken. 2. Dehydration: Notable on physical exam and secondary to poor intake from the conditions discussed above. Will continue IVF resuscitation. 3. Metastatic prostate cancer: Care per oncology. 4. Diabetes: On basal insulin with sliding scale. 5. Anemia: Likely from chronic disease (malignancy, CKD and chemo). Stable. 6. CKD: Stable. Past Med Surg Social Fam HX - Past Medical History Medical history: cancer, diabetes, hyperlipidemia, hypertension, other Additional medical history: prostate cancer Psychiatric history: depression - Past Surgical History Surgical History: cholecystectomy Additional surgical history: partial left knee replacement, bilateral nephro tube, TURP, a port R chest - Social History Smoking Status: Never smoker Smokeless Tobacco Status: No Alcohol use: none Drug use: none - Family History Father Family Member Ethnicity: Non- Living Status: Hx Family Cardiac Disorders: No Hx Family Respiratory Disorders: No Hx Family Cancer: Yes (Colon) Hx Family GI Disorders: No Hx Family Endocrine Disorder: Yes (Diabetes) Hx Family Neuromuscular Disorders: No Hx Family Neurologic Disorders: No Hx Family HEENT Disorders: No Hx Family Autoimmune Disorders: No Brother Family Member Ethnicity: Non- Living Status: Hx Family Cancer: Yes (Colon and lung) Mother Family Member Ethnicity: Non- Living Status: Sister Family Member Ethnicity: Non- Living Status: Still Living Hx Family Endocrine Disorder: Yes (DM) Internal Medicine - H&P: Meds Sertraline [Zoloft] 25 mg PO DAILY 04/13/16 [History] Insulin ASPART [Novolog Flexpen] 10 - 15 unit SQ TIDWM 11/17/16 [History] Diltiazem CD (24hr) [Cardizem CD] 240 mg PO DAILY 12/15/16 [History] Gabapentin [Neurontin] 100 mg PO HS 10/16/17 [History] Losartan [Cozaar] 25 mg PO BID 10/16/17 [History] Oxycodone HCl 15 mg PO Q8H PRN 12/27/17 [History] Insulin DETEMIR [Levemir] 30 unit SQ HS 02/28/18 [History] Lubiprostone [Amitiza] 24 mcg PO BID PRN 05/20/18 [History] Oxycodone HCl [Oxycontin] 10 mg PO Q12H 05/20/18 [History] predniSONE [PredniSONE] 5 mg PO BIDWM 05/20/18 [History] Ondansetron HCl [Zofran] 4 mg PO TID PRN #30 tablet 06/12/18 [Rx] OLANZapine [Zyprexa] 5 mg PO HS 08/14/18 [History] Allergy/AdvReac Type Severity Reaction Status Date / Time No Known Allergies Allergy Verified 10/09/18 12:16 All Systems PM: A 10-system review of systems was performed and is negative for pertinent findings except as documented above in the HPI. - Constitutional Vitals: Temp Pulse Resp BP Pulse Ox 98.7 F 103 18 147/79 96 10/09/18 20:20 10/09/18 20:20 10/09/18 20:20 10/09/18 20:20 10/09/18 20:20 Exam: . Internal Med - H&P Results - Labs CBC & Chem 7: 10/09/18 14:12 10/09/18 14:12 Labs: Short CBC 10/09/18 Range/Units 14:12 WBC 3.2 L (4.3-11.1) K/mcL Hgb 11.6 L (12.9-16.9) g/dL Hct 36.4 L (37.5-50.1) % Plt Count 216 (140-400) K/mcL Neutrophils # 2.6 (1.6-8.9) K/mcL BMP 10/09/18 14:12 Sodium 137 Potassium 4.3 Chloride 106 Carbon Dioxide 23 BUN 27 H Creatinine 1.71 H Glucose 292 H Calcium 8.2 L Liver Function 10/09/18 Range/Units 14:12 Total Bilirubin 0.6 (0.3-1.0) mg/dL AST 10 L (13-39) Units/L ALT 14 (7-52) Units/L Alkaline Phosphatase 63 (34-104) Units/L Albumin 3.7 (3.5-5.7) g/dL Urine 10/09/18 Range/Units 15:26 Urine Color Yellow (Yellow) Urine Clarity Turbid A (Clear) Urine pH 6.0 (5.0-8.0) pH Units Ur Specific [place] 1.015 (1.010-1.025) Urine Protein >=300 H (Neg-Trace) mg/dL Urine Glucose (UA) 250 H (Normal) mg/dL - Impressions ITS Impressions Abdomen/Pelvis CT 10/09/18 17:31 IMPRESSION: 1. No CT evidence for renal abscess. 2. No acute intra-process identified. 3. Colonic diverticulosis without CT evidence for diverticulitis. 4. New sclerotic foci within the L2 vertebral body when compared with previous exam from June 04, 2018 consistent with new bone metastasis. Patient has known history of metastatic prostate cancer. D/ / Tucker Gordillo MD / Tucker Gordillo MD Interpreting Provider: Tucker Gordillo MD - Time Spent With Patient Total time spent is greater than 50% in coordination of care (as documented) at patient's floor/unit and/or counseling patient:
[2018-10-10] MEDS: *HR* Heparin 5,000 UNIT/ML VIAL SQ SCH ×2 (05:22→16:30)
[2018-10-10] MEDS: cefTRIAXone 1,000 MG in Water for inj. (sterile) 10 ML IVPB SCH (09:31)
[2018-10-10] MEDS: Insulin LISPRO 300 UNITS/3 ML VIAL SQ SCH ×4 (09:31→21:07)
[2018-10-10] MEDS: Diltiazem CD (24hr) 240 MG CAPSULE PO SCH (09:32)
--- NOTE | 2018-10-10 10:39 | Internal Med Progress Note ---
Hospitalist Progress Note - Encounter Date of Encounter: 10/10/18 Time of Encounter: 10:38 - Subjective Interval History: She was seen and examined at bedside discuss treatment plan with the patient is . Discussed CT results with some concerns of new sclerotic foci within the L2 vertebral body consistent with new bone metastasis. We will consult on cology. - Exam Vitals: Temp Pulse Resp BP Pulse Ox 98.0 F 104 16 144/97 95 10/10/18 07:23 10/10/18 07:23 10/10/18 07:23 10/10/18 07:23 10/10/18 07:23 Exam: Skin: Free of rash and discoloration. Eyes: Sclera is white. There is no discharge from eyes. ENMT: Oral/pharyngeal mucosa is normal in appearance. There is no discharge from nose or ears. Respiratory: Normal breath sounds with no crackles and wheezes bilaterally. CV: Heart is regular with no gallop or murmur. GI: Abdomen is distended and soft with no palpable mass or visceromegaly. : There is no tenderness in patient's flanks bilaterally. Neuro exam: He has good strength in upper and lower extremities. He has normal eye movements. Psychiatric: He has normal affect. His thought process is appropriate to the situation. - Assessment and Plan (1) Dehydration Current Visit: Yes Status: Acute Assessment and Plan: Patient has been experiencing nausea vomiting and diarrhea -has received his fifth cycle of Taxotere. Which could be contributing to his symptoms. However it appears he also has UTI-urine and blood cultures have been sent. GI panel is pending-( (2) UTI (urinary tract infection) Current Visit: Yes Status: Acute Assessment and Plan: Patient does have history of nephrostomy tube and repeated UTI-with previous cultures growing Emmanuelle tropicallis E coli -urine culture has been sent and is pending at this time. Continue with empiric Rocephin.- he maybe colonized - however due to immunocompromise state we will empirically treat (3) Anemia Current Visit: No Status: Acute Assessment and Plan: Appears to be stable at this time continue with folate (4) Bony metastasis Current Visit: No Status: Acute Assessment and Plan: Patient does have history of prostate cancer and is receiving chemotherapy per oncology. 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 Will discuss with oncology (5) DVT prophylaxis Current Visit: No Status: Acute Assessment and Plan: Heparin subcutaneous (6) SIRS (systemic inflammatory response syndrome) Current Visit: No Status: Acute Assessment and Plan: Presented with leukopenia and tachycardia-concerns for infectious process patient is immunocompromised history of UTI however he does have nephrostomy tubes-which could be chronic findings suggestive of colonization. Urine culture has been sent and is pending blood cultures are negative this time-continue with Rocephin which was sensitive to previous cultures also concern for gastroenteritis GI panel is pending at this time (7) Chronic kidney disease, stage III (moderate) Current Visit: No Status: Chronic Assessment and Plan: History CK D-yesterday lab work appears to be around baseline currently waiting for morning labs We will monitor intake and output Avoid nephrotoxins (8) Diabetes mellitus Current Visit: No Status: Chronic Assessment and Plan: Accu-Cheks before meals at bedtime with sliding scale insulin as well as basal - Time Spent with Patient Total time spent is greater than 50% in coordination of care (as documented) at patient's floor/unit and/or counseling patient: Internal Medicine: Result - Labs CBC & Chem 7: 10/09/18 14:12 10/09/18 14:12 Labs: Short CBC 10/09/18 Range/Units 14:12 WBC 3.2 L (4.3-11.1) K/mcL Hgb 11.6 L (12.9-16.9) g/dL Hct 36.4 L (37.5-50.1) % Plt Count 216 (140-400) K/mcL Neutrophils # 2.6 (1.6-8.9) K/mcL BMP 10/09/18 14:12 Sodium 137 Potassium 4.3 Chloride 106 Carbon Dioxide 23 BUN 27 H Creatinine 1.71 H Glucose 292 H Calcium 8.2 L Liver Function 10/09/18 Range/Units 14:12 Total Bilirubin 0.6 (0.3-1.0) mg/dL AST 10 L (13-39) Units/L ALT 14 (7-52) Units/L Alkaline Phosphatase 63 (34-104) Units/L Albumin 3.7 (3.5-5.7) g/dL Urine 10/09/18 Range/Units 15:26 Urine Color Yellow (Yellow) Urine Clarity Turbid A (Clear) Urine pH 6.0 (5.0-8.0) pH Units Ur Specific [place] 1.015 (1.010-1.025) Urine Protein >=300 H (Neg-Trace) mg/dL Urine Glucose (UA) 250 H (Normal) mg/dL - Impressions Impressions Abdomen/Pelvis CT 10/09/18 17:31 IMPRESSION: 1. No CT evidence for renal abscess. 2. No acute intra-process identified. 3. Colonic diverticulosis without CT evidence for diverticulitis. 4. New sclerotic foci within the L2 vertebral body when compared with previous exam from June 04, 2018 consistent with new bone metastasis. Patient has known history of metastatic prostate cancer. D/ / Tucker Gordillo MD / Tucker Gordillo MD Interpreting Provider: Tucker Gordillo MD Consult Discharge Plan - Plan Referrals: Saleem Ramirez DO [Primary Care Provider] - (2) UTI (urinary tract infection) Qualifiers: Urinary tract infection type: acute cystitis Hematuria presence: with hematuria Qualified Code(s): N30.01 - Acute cystitis with hematuria (3) Anemia Qualifiers: Anemia type: due to chronic kidney disease Chronic kidney disease stage: unspecified stage Qualified Code(s): N18.9 - Chronic kidney disease, unspecified; D63.1 - Anemia in chronic kidney disease (8) Diabetes mellitus Qualifiers: Diabetes mellitus type: type 2 Diabetes mellitus intermediate accountant insulin use: with [facility] use Diabetes mellitus complication status: with kidney complications Diabetes mellitus complication detail: with chronic kidney disease Chronic kidney disease stage: stage 3 (moderate) Qualified Code(s): E11.22 - Type 2 diabetes mellitus with diabetic chronic kidney disease; N18.3 - Chronic kidney disease, stage 3 (moderate); 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
[2018-10-10 14:47] LABS: Hemoglobin 10.1 g/dL (12.9-16.9)
[2018-10-10 14:48] LABS: Basophils % 2.3 %; Eosinophils # 0.1 K/mcL (0.0-0.6); Eosinophils % 4.7 %; Hematocrit 31.4 % (37.5-50.1); Immature Granulocytes % 3.5 % (0-4); Lymphocytes # 0.4 K/mcL (0.6-4.6); Lymphocytes % 23.3 %; Mean Corpuscular HGB Conc 32.2 g/dL (31.6-35.5); Mean Corpuscular Volume 96.3 fL (83.0-100.0); Mean Platelet Volume 9.4 fL (9.4-12.4); Monocytes # 0.1 K/mcL (0.0-1.3); Monocytes % 2.9 %; Neutrophils # 1.1 K/mcL (1.6-8.9); Platelet Count 188 K/mcL (140-400); Red Blood Count 3.26 M/mcL (4.19-5.50); Red Cell Distribution Width 14.3 % (11.5-14.5); Segmented Neutrophils % 63.3 %; White Blood Count 1.7 K/mcL (4.3-11.1)
[2018-10-10 15:08] LABS: Calcium 7.3 mg/dL (8.6-10.3); Potassium 3.8 mEq/L (3.5-5.1)
[2018-10-10 15:22] LABS: Platelet Estimate Normal (Normal)
[2018-10-10 16:11] LABS: Campylobacter by PCR Not detected (Not detect)
[2018-10-10 16:12] LABS: Adenovirus F 40/41 PCR Not detected (Not detect); Astrovirus PCR Not detected (Not detect); C.difficile Toxin A/B Gene PCR DETECTED (Not detect); Cryptosporidium by PCR Not detected (Not detect); Cyclospora cayetanensis PCR Not detected (Not detect); E. coli O157 by PCR Not detected (Not detect); Entamoeba histolytica PCR Not detected (Not detect); Enteroaggregative E.coli(EAEC) Not detected (Not detect); Enteropathogenic E.coli(EPEC) Not detected (Not detect); Enterotoxigenic E.coli (ETEC) Not detected (Not detect); Giardia lamblia PCR Not detected (Not detect); Plesiomonas shigelloides PCR Not detected (Not detect); Salmonella PCR Not detected (Not detect); Shig/EnteroinvasiveE coli EIEC Not detected (Not detect); Shigalike tox-prod E coli STEC Not detected (Not detect); Vibrio PCR Not detected (Not detect); Vibrio cholerae PCR Not detected (Not detect); Yersinia enterocolitica PCR Not detected (Not detect)
[2018-10-10 16:13] LABS: Norovirus GI/GII PCR Not detected (Not detect); Rotavirus A PCR Not detected (Not detect); Sapovirus PCR Not detected (Not detect)
[2018-10-10] MEDS: OLANZapine 5 MG TAB.RAPDIS PO SCH (21:28)
[2018-10-10] MEDS: Ondansetron ODT 4 MG TAB.RAPDIS PO PRN (21:28)
[2018-10-10] MEDS: Insulin DETEMIR 100 UNIT/ML X5UNITS SQ SCH (21:28)
[2018-10-10] MEDS: 0.9 % Sodium Chloride 1,000 ML IVC SCH (22:19)
[2018-10-10] MEDS: Lactobacillus 1 EACH CAP.SPRINK PO SCH (22:38)
[2018-10-10] MEDS: *HR* OxyCODONE ER (12 HR) 10 MG TABLET PO SCH (22:38)
[2018-10-10] MEDS: Gabapentin 100 MG CAPSULE PO SCH (22:38)
--- NOTE | 2018-10-11 05:35 | Event Note ---
Date of Encounter: 10/10/18 Time of Encounter: 20:49 Alerted by patient's nurse MYRA Fisher the patient been admitted for nausea and possible C. difficile. Nurse informed me patient and wish to speak to me. Went to see the patient who was resting in bed. expressed concern regarding patient's C. difficile and whether fluids and antibiotics will be started. I informed the that I had reviewed the chart which showed C. difficile toxins A and B were negative. Called microbiology to confirm and I was told while the GI panel detected C. difficile, the C. difficile toxin A and B immunocard was negative. I relayed these results to the family. was relieved. I informed patient and that I would not start by mouth vancomycin prophylactically since patient was now on Rocephin for UTI and adding an additional unnecessary antibiotic they increase the patient's susceptibility to C. difficile. I started 0.9 fluids at 80 mL's per hour, Tums ordered when necessary for patient's hypocalcemia, and Culturelle ordered to start now. also expressed concern that patient's MS Contin was not ordered which I reviewed and ordered. Patient and expressed understanding and agreement to plan. Nurse instructed to continue monitoring this patient very closely and alert me immediately of any adverse changes.
[2018-10-11] MEDS: *HR* Heparin 5,000 UNIT/ML VIAL SQ SCH ×2 (06:08→17:45)
[2018-10-11] MEDS: Ondansetron ODT 4 MG TAB.RAPDIS PO PRN (06:08)
[2018-10-11 06:39] LABS: Basophils % 1.3 %; Hemoglobin 9.9 g/dL (12.9-16.9); Mean Platelet Volume 9.2 fL (9.4-12.4); Red Cell Distribution Width 14.2 % (11.5-14.5)
[2018-10-11 06:40] LABS: Eosinophils # 0.1 K/mcL (0.0-0.6); Eosinophils % 5.8 %; Hematocrit 31.1 % (37.5-50.1); Immature Granulocytes % 1.9 % (0-4); Lymphocytes # 0.6 K/mcL (0.6-4.6); Lymphocytes % 36.1 %; Mean Corpuscular HGB Conc 31.8 g/dL (31.6-35.5); Mean Corpuscular Hemoglobin 30.2 pg (28.0-33.3); Mean Corpuscular Volume 94.8 fL (83.0-100.0); Monocytes # 0.1 K/mcL (0.0-1.3); Monocytes % 6.5 %; Neutrophils # 0.8 K/mcL (1.6-8.9); Platelet Count 192 K/mcL (140-400); Red Blood Count 3.28 M/mcL (4.19-5.50); Segmented Neutrophils % 48.4 %; White Blood Count 1.6 K/mcL (4.3-11.1)
[2018-10-11 06:54] LABS: Albumin 3.1 g/dL (3.5-5.7); Albumin/Globulin Ratio 1.4 (1.1-2.2); Bilirubin,Total 0.4 mg/dL (0.3-1.0); Calcium 7.3 mg/dL (8.6-10.3); Globulin 2.2 g/dL (2.4-3.5); Potassium 3.7 mEq/L (3.5-5.1); Total Protein 5.3 g/dL (6.4-8.9)
[2018-10-11 07:05] LABS: Platelet Estimate Normal (Normal)
[2018-10-11] MEDS: cefTRIAXone 1,000 MG in Water for inj. (sterile) 10 ML IVPB SCH (08:50)
[2018-10-11] MEDS: Diltiazem CD (24hr) 240 MG CAPSULE PO SCH (08:52)
[2018-10-11] MEDS: Lactobacillus 1 EACH CAP.SPRINK PO SCH ×2 (08:52→22:07)
[2018-10-11] MEDS: *HR* Promethazine 25 MG/ML VIAL IVP PRN ×2 (08:52→22:07)
[2018-10-11] MEDS: Insulin LISPRO 300 UNITS/3 ML VIAL SQ SCH ×4 (09:02→22:12)
--- NOTE | 2018-10-11 09:17 | Oncology Inp Consult Note ---
Date of Encounter: 10/11/18 Time of Encounter: 08:00 Assessment and Plan (1) Prostate CA Status: Chronic Assessment and plan: Metastatic prostate cancer status post prior radiation therapy to prostate, nephrostomy tubes, vertebral metastatic disease, status post surgery, palliative radiation therapy to the back T5-T8, status post androgen receptor blockade with progression was on Taxotere. His PSA had increased, patient has been recently switched to chemotherapy with cabazitaxel. CT scan findings noted discussed with patient, sclerotic lumbar vertebral lesion probably new, status post change in treatment of week ago. PSA trend will be monitored. He receives Lupron and denosumab through our clinic. Nausea, vomiting, diarrhea likely side effect of chemotherapy C. difficile to be sent due to consistency of stool. Start Imodium of C. difficile negative continue IV hydration. Subsequent dose adjustment of Rx to be considered when he follows with his oncologist, discussed with him and his . Nephrostomy tube changed 09/24/18 He as scheduled appt with me in clinic in a month - Data of Consult Requesting Physician: Margarette Gomes Primary Care Provider: Saleem Ramirez, DO - Consult Narrative Reason for consult: prostate cancer, abnormal imaging History of present illness: Metastatic prostate cancer--(hx of [id number] salvador 4+5 (inv of bladder)) with spine lesions epidural T spine lesion s/p palliative RT on chemotherapy at [facility]. Patient with medical history significant for diabetes mellitus, hypertension, history of renal insufficiency, urinary retention prostate cancer diagnosed 01/28, biopsy showed [place] 9 prostatic adenocarcinoma, lymphovascular invasion and perineural invasion present. He had been seen by Dr Murrieta, Urologic surgery at [facility]-a robotic prostatectomy was planned. He underwent a cystoscopy that showed his prostate cancer causing obstruction invading bladder neck, extending to trigone and ureteral orifices. Surgery was not completed as he would potentially need radical surgery with cystectomy and a TURP/jacky stents were placed to relieve obstruction. He underwent lupron injections with nice PSA response. He was sent for another opinion by rad onc, pt was seen at [facility] and underwent EBRT on 11/02/[address] Trejo. Dosing schedule 4600/400 cGy+1400cGy+1800cGy. A PSA done on 11/16/2016 was at 0.59, rpt at [place] 11/29 0.4. In August and September his PSA had increased to 2 and 4 and subsequently in October 2017 up to 6. He subsequently had additional workup MRI of the spine was obtained that showed, T3 T6 T9 and T12 hemangiomas, T6 vertebral body lesion involving right pedicle lamina and spinous processes with large epidural competent exerting mass effect on adjacent spinal cord. T7 articular and transverse process involvement, another lesion in the posterior aspect of T4. Cord compression and anterior lateral displacement into the T6-T7 neural foramen. Lumbar degenerative disc disease. Patient was started on Xtandi in the hospital, he underwent palliative radiation therapy to the back, T5-T8 3000cGy in 10 fractions 11/10/2017. Patient refused neurosurgical intervention at [facility]. With PSA progressing patient was started on Taxotere chemotherapy 04/17/2018. According to patient's his PSA declined from 14-7 but increased to 14 and this treatment was switched to cabazitaxel at [facility]-s/p C1 last Monday Patient reports having nausea vomiting and diarrhea for the last 3 days or so since receiving new chemotherapy drug. His appetite has been poor, poor oral intake, patient was referred to ED for hydration. He receives Lupron and denosumab through our clinic. He denies any new back pain or bony aches. He denies abdominal pain. He denies any shortness of breath cough with expectoration. He underwent CT scan of the abdomen with findings of new sclerotic foci in the L2 vertebral body, no other acute findings. Oncology consulted Past Med Surg Social Fam HX - Past Medical History Medical history: cancer, diabetes, hyperlipidemia, hypertension, other Additional medical history: prostate cancer Psychiatric history: depression - Past Surgical History Surgical History: cholecystectomy Additional surgical history: partial left knee replacement, bilateral nephro tube, TURP, a port R chest - Social History Smoking Status: Never smoker Smokeless Tobacco Status: No Alcohol use: none Drug use: none - Family History Father Family Member Ethnicity: Non- Living Status: Hx Family Cardiac Disorders: No Hx Family Respiratory Disorders: No Hx Family Cancer: Yes (Colon) Hx Family GI Disorders: No Hx Family Endocrine Disorder: Yes (Diabetes) Hx Family Neuromuscular Disorders: No Hx Family Neurologic Disorders: No Hx Family HEENT Disorders: No Hx Family Autoimmune Disorders: No Brother Family Member Ethnicity: Non- Living Status: Hx Family Cancer: Yes (Colon and lung) Mother Family Member Ethnicity: Non- Living Status: Sister Family Member Ethnicity: Non- Living Status: Still Living Hx Family Endocrine Disorder: Yes (DM) Medications and Allergies Sertraline [Zoloft] 25 mg PO DAILY 04/13/16 [History] Insulin ASPART [Novolog Flexpen] 10 - 15 unit SQ TIDWM 11/17/16 [History] Diltiazem CD (24hr) [Cardizem CD] 240 mg PO DAILY 12/15/16 [History] Gabapentin [Neurontin] 100 mg PO HS 10/16/17 [History] Losartan [Cozaar] 25 mg PO BID 10/16/17 [History] Oxycodone HCl 15 mg PO Q8H PRN 12/27/17 [History] Insulin DETEMIR [Levemir] 30 unit SQ HS 02/28/18 [History] Lubiprostone [Amitiza] 24 mcg PO BID PRN 05/20/18 [History] Oxycodone HCl [Oxycontin] 10 mg PO Q12H 05/20/18 [History] predniSONE [PredniSONE] 5 mg PO BIDWM 05/20/18 [History] Ondansetron HCl [Zofran] 4 mg PO TID PRN #30 tablet 06/12/18 [Rx] OLANZapine [Zyprexa] 5 mg PO HS 08/14/18 [History] Allergy/AdvReac Type Severity Reaction Status Date / Time No Known Allergies Allergy Verified 10/09/18 12:16 Constitutional: Present: anorexia, weakness Additional comments: no sore throat or thrush Additional comments: denies palpitations or chest discomfort Additional comments: denies cough/sob Additional comments: diarrhea--with mucos, no blood. nausea, Additional comments: nephrostomy tubes Additional comments: lower ext wkness, denies pain Additional comments: denies, haedache, tingling numbness Oncology - Exam - Constitutional General appearance: obese - Head Head exam: Present: atraumatic, normal inspection - Eye Eye exam: Present: sclera anicteric - ENT ENT exam: Present: mucous membranes dry - Neck Neck exam: Present: full ROM - Respiratory Respiratory exam: Present: CTAB - Cardiovascular Cardiovascular exam: Present: +S1, +S2 - GI/Abdominal GI/Abdominal exam: Present: distended, normal bowel sounds, soft - Extremities Exam Extremities exam: Present: pedal edema - Neurological Exam Neurological exam: Present: alert, CN II-XII intact, oriented X3, no focal deficits - Psychiatric Psychiatric exam: Present: normal affect - Skin Skin exam: Present: dry, normal color Oncology Inpatient Results Labs: renal insufficiency baseline. CT abd findings reviewed Consult Discharge Plan - Plan Referrals: Saleem Ramirez DO [Primary Care Provider] - Inpatient Charges Provider: Dr. Ryan Ayala Consult - Inpatient: [id number]
--- NOTE | 2018-10-11 10:12 | Internal Med Progress Note ---
Hospitalist Progress Note - Encounter Date of Encounter: 10/11/18 Time of Encounter: 10:12 - Subjective Interval History: Patient was seen and examined at bedside discuss treatment plan which includes oral vancomycin for C. difficile patient did have loose stools this a.m. As well as continued Rocephin for Citrobacter freundili urine culture and gram-po sitive cocci. Patient verbalizes understanding - Exam Vitals: Temp Pulse Resp BP Pulse Ox 98.3 F 96 16 124/82 94 10/11/18 06:35 10/11/18 06:35 10/11/18 06:35 10/11/18 06:35 10/11/18 06:35 Exam: Skin: Free of rash and discoloration. Eyes: Sclera is white. There is no discharge from eyes. ENMT: Oral/pharyngeal mucosa is normal in appearance. There is no discharge from nose or ears. Respiratory: Normal breath sounds with no crackles and wheezes bilaterally. CV: Heart is regular with no gallop or murmur. GI: Abdomen is distended and soft with no palpable mass or visceromegaly. : There is no tenderness in patient's flanks bilaterally. Neuro exam: He has good strength in upper and lower extremities. He has normal eye movements. Psychiatric: He has normal affect. His thought process is appropriate to the situation. - Assessment and Plan (1) Dehydration Current Visit: Yes Status: Acute Assessment and Plan: Patient has been experiencing nausea vomiting and diarrhea -has received his fifth cycle of Taxotere. Which could be contributing to his symptoms. However it appears he also has UTI-urine and blood cultures have been sent. GI panel is pending-( 10/10 Patient did receive IV fluids -noted improvement in renal function continue IV fluids today He has a poor oral intake Had one episode of loose stool today GI panel positive for C. difficile initiated on oral vancomycin No nausea and vomiting today Continue with antibiotics as needed Monitor electrolytes (2) UTI (urinary tract infection) Current Visit: Yes Status: Acute Assessment and Plan: Patient does have history of nephrostomy tube and repeated UTI-with previous cul tures growing Emmanuelle tropicallis E coli -urine culture has been sent and is pending at this time. Continue with empiric Rocephin.- he maybe colonized - however due to immunocompromise state we will empirically treat 10/11 Urine culture grew Citrobacter freundili and gram-positive cocci. Sensitive to Rocephin which we will continue We will consult infectious disease due to patient's renal function and multiple organisms, immunocompromised (3) Anemia Current Visit: No Status: Acute Assessment and Plan: Appears to be stable at this time continue with folate (4) Bony metastasis Current Visit: No Status: Acute Assessment and Plan: Patient does have history of prostate cancer and is receiving chemotherapy per oncology. 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 Will discuss with oncology 10/11 Patient will follow up with oncology in one month-he is to follow-up with [facility] neurology in November (5) DVT prophylaxis Current Visit: No Status: Acute Assessment and Plan: Heparin subcutaneous (6) SIRS (systemic inflammatory response syndrome) Current Visit: No Status: Acute Assessment and Plan: Presented with leukopenia and tachycardia-concerns for infectious process patient is immunocompromised history of UTI however he does have nephrostomy tubes-which could be chronic findings suggestive of colonization. Urine culture has been sent and is pending blood cultures are negative this time-continue with Rocephin which was sensitive to previous cultures also concern for gastroenteritis GI panel is pending at this time 10/11 White count this a.m. 1.6 patient is been afebrile continues with tachycardia GI panel revealed C. difficile-initiated on oral vancomycin Urine culture Citrobacter freundili and gram-positive cocci. Continue Rocephin Infectious disease consulted for multiple organisms immunocompromised patient with CKD (7) Chronic kidney disease, stage III (moderate) Current Visit: No Status: Chronic Assessment and Plan: History CK D-yesterday lab work appears to be around baseline currently waiting for morning labs We will monitor intake and output Avoid nephrotoxins 10/11 History CKG stage III was given IV fluids overnight appears creatinine around baseline Continue to monitor avoid nephrotoxins Renal dose antibiotics (8) Diabetes mellitus Current Visit: No Status: Chronic Assessment and Plan: Accu-Cheks before meals at bedtime with sliding scale insulin as well as basal - Time Spent with Patient Total time spent is greater than 50% in coordination of care (as documented) at patient's floor/unit and/or counseling patient: Internal Medicine: Result - Labs CBC & Chem 7: 10/11/18 06:15 10/11/18 06:15 Labs: Short CBC 10/10/18 10/11/18 Range/Units 14:29 06:15 WBC 1.7 L 1.6 L (4.3-11.1) K/mcL Hgb 10.1 L D 9.9 L (12.9-16.9) g/dL Hct 31.4 L 31.1 L (37.5-50.1) % Plt Count 188 192 (140-400) K/mcL Neutrophils # 1.1 L 0.8 L (1.6-8.9) K/mcL BMP 10/10/18 10/11/18 14:29 06:15 Sodium 140 141 Potassium 3.8 3.7 Chloride 108 H 109 H Carbon Dioxide 23 23 BUN 20 16 Creatinine 1.62 H 1.55 H Glucose 198 H 166 H Calcium 7.3 L 7.3 L Liver Function 10/11/18 Range/Units 06:15 Total Bilirubin 0.4 (0.3-1.0) mg/dL AST 9 L (13-39) Units/L ALT 11 (7-52) Units/L Alkaline Phosphatase 50 (34-104) Units/L Albumin 3.1 L (3.5-5.7) g/dL Urine 10/09/18 Range/Units 15:26 Urine Color Yellow (Yellow) Urine Clarity Turbid A (Clear) Urine pH 6.0 (5.0-8.0) pH Units Ur Specific [place] 1.015 (1.010-1.025) Urine Protein >=300 H (Neg-Trace) mg/dL Urine Glucose (UA) 250 H (Normal) mg/dL Consult Discharge Plan - Plan Additional Instructions: Home Health has been set up through [facility]. They will contact you with a date and time to complete admission. If you need to contact them please call #[phone] or #[phone]. Referrals: Saleem Ramirez DO [Primary Care Provider] - (2) UTI (urinary tract infection) Qualifiers: Urinary tract infection type: acute cystitis Hematuria presence: with hematuria Qualified Code(s): N30.01 - Acute cystitis with hematuria (3) Anemia Qualifiers: Anemia type: due to chronic kidney disease Chronic kidney disease stage: unspecified stage Qualified Code(s): N18.9 - Chronic kidney disease, unspecified; D63.1 - Anemia in chronic kidney disease (8) Diabetes mellitus Qualifiers: Diabetes mellitus type: type 2 Diabetes mellitus meterman insulin use: with halfway use Diabetes mellitus complication status: with kidney complications Diabetes mellitus complication detail: with chronic kidney disease Chronic kidney disease stage: stage 3 (moderate) Qualified Code(s): E11.22 - Type 2 diabetes mellitus with diabetic chronic kidney disease; N18.3 - Chronic kidney disease, stage 3 (moderate); Z79.4 - [facility] (current) use of insulin
[2018-10-11] MEDS: *HR* OxyCODONE ER (12 HR) 10 MG TABLET PO SCH ×2 (10:22→22:10)
[2018-10-11] MEDS: Vancomycin Oral Soln 125 MG/2.5 ML UDC PO SCH ×4 (10:23→22:13)
[2018-10-11] MEDS: 0.9 % Sodium Chloride 1,000 ML IVC SCH (10:23)
--- NOTE | 2018-10-11 14:19 | Electrocardiograph Report ---
[address] [place], [place] [address] Test Date: 2018-10-09 Pat Name: Faustino Rivera Department: [id number] Room: 3B48 Gender: M Artist Suspect: : 1950 Requested By: Alex Ornelas Order Number: [id number] Reading MD: Lang Menendez Measurements Intervals [place] Rate: 109 P: 43 AR: 166 QRS: -21 QRSD: 78 T: 72 QT: 320 QTc: 431 Interpretive Statements Sinus tachycardia Borderline left axis deviation RSR' in V1 or V2, probably normal variant Electronically Signed On 10-11-2018 14:18:34 EDT by Lang Menendez
[2018-10-11] MEDS: OLANZapine 5 MG TAB.RAPDIS PO SCH (22:07)
[2018-10-11] MEDS: Gabapentin 100 MG CAPSULE PO SCH (22:10)
--- NOTE | 2018-10-11 22:10 | Infectious Disease Consult ---
Infectious Disease-Consult - Encounter Date/Time Date of Encounter: 10/11/18 Time of Encounter: 16:00 - Data of Consult Patient: known to practice within the last 3 years Reason for consult: UTI and C diff colitis Consult date: 10/11/18 Requesting Physician: Margarette Gomes Primary Care Provider: Saleem Ramirez DO - HPI HPI: Patient is a 68 year old man known to my service who presented to [facility] on 10/09/18 with weakness, fatigue, N/V/D and just no energy. We are consulted on 10/11 for C diff and UTI. Patient is a 68 year old gentleman with PMH significant for Metastatic prostate cancer status post prior radiation therapy to prostate, nephrostomy tubes, vertebral metastatic disease, status post surgery, palliative radiation therapy to the back T5-T8, status post androgen receptor blockade with progression was on Taxotere received last dose last Monday was also seen by us in the past for pyelonephritis presented to [facility] with N/V/D and extreme fatigue that has been going on for a few days prior to admission. Patient denies any SAM, no chest pain or shortness of breath. Patient denies any abdominal pain. He does have chronic back pain. Patient denies any urinary symptoms and he doenst produce much urine since he has bilateral nephrostomy tubes. Since admission, Patient has been afebrile, tachycardic without tachypnea. Presenting labs noted a WBC of 3.2 initially with normal diff but now he's neutropenic with ANC 900. Patientn also with BUN 27, Cr 1.71. A urine culture from the nephrostomy tube, not the bag was positive for GPC and Citrobacter fruendii that is pansensitive. Patient was also noted to have diarrhea and C diff was positive. Patient was started on empiric ceftriaxone and oral vancomycin. We were asked to evaluate the patienet and make further recommendations. Currently patient sitting in chair appears to be doing well. Non Toxic. ROS is negative. Diarrhea has significantly improved. Patient denies any fevers chills rigors etc. - ROS Review of Systems: 10 point ROS done, negative other for what's mentioned in the HPI - Results CBC & Chem 7: 10/11/18 06:15 10/11/18 06:15 - Exam Vitals: Temp Pulse Resp BP Pulse Ox 98.2 F 94 16 170/71 96 10/11/18 18:52 10/11/18 18:52 10/11/18 18:52 10/11/18 18:52 10/11/18 18:52 Exam: GENERAL: Sitting up in the chair, appears comfortable. HEAD: Normocephalic atraumatic EYES: PERRLA, EOMI, no conjunctival hemorrhage, sclera anicteric. No endocarditis stigmata. ENT: Mucous membranes moist, no oral thrush. no oral lesions NECK: Supple. No meningeal signs. No masses LUNGS: Chest expanding symmetrically. Lungs sounds audible both lung suárez. No wheezing, no rhonchi CV: RRR, S1S2, I did not appreciate any murmur. CHEST: port right chest. no signs of infection ABDOMEN: Soft, nontender, nondistended. Bowel sounds audible and hyperactive BACK: No CVA tenderness. Normal inspection. nephrostomy tubes intact EXTREMITY: Adequate perfusion. No joint effusion. Right forearm surgically wrapped with wound VAC intact. SKIN: Normal color. No rash. No endocarditis stigmata. NEURO: Awake alert oriented 3. No obvious focal deficit PSYCH: Calm and appropriate. No agitation. Sertraline [Zoloft] 25 mg PO DAILY 04/13/16 [History] Insulin ASPART [Novolog Flexpen] 10 - 15 unit SQ TIDWM 11/17/16 [History] Diltiazem CD (24hr) [Cardizem CD] 240 mg PO DAILY 12/15/16 [History] Gabapentin [Neurontin] 100 mg PO HS 10/16/17 [History] Losartan [Cozaar] 25 mg PO BID 10/16/17 [History] Oxycodone HCl 15 mg PO Q8H PRN 12/27/17 [History] Insulin DETEMIR [Levemir] 30 unit SQ HS 02/28/18 [History] Lubiprostone [Amitiza] 24 mcg PO BID PRN 05/20/18 [History] Oxycodone HCl [Oxycontin] 10 mg PO Q12H 05/20/18 [History] predniSONE [PredniSONE] 5 mg PO BIDWM 05/20/18 [History] Ondansetron HCl [Zofran] 4 mg PO TID PRN #30 tablet 06/12/18 [Rx] OLANZapine [Zyprexa] 5 mg PO HS 08/14/18 [History] Allergy/AdvReac Type Severity Reaction Status Date / Time No Known Allergies Allergy Verified 10/09/18 12:16 - Assessment and Plan (1) Sepsis Current Visit: No Status: Acute had 2 SIRS criteria (tachycardia and leukopenia) secondary to UTI and C diff colitis Qualifiers: Sepsis type: sepsis due to unspecified organism Qualified Code(s): A41.9 - Sepsis, unspecified organism SNOMED Code(s): 06864335 (2) C. difficile colitis Current Visit: Yes Status: Acute first episode diarrhea improved SNOMED Code(s): 566536956 (3) Complicated UTI (urinary tract infection) Current Visit: No Status: Acute causative organism Citrobacter and GPC (suspect enterococcus?) started on rocephin improved significantly SNOMED Code(s): 42415587 (4) Prostate CA Current Visit: No Status: Chronic Metastatic prostate cancer status post prior radiation therapy to prostate, nephrostomy tubes, vertebral metastatic disease, status post surgery, palliative radiation therapy to the back T5-T8 on Taxotere last dose Tuesday 10/03 SNOMED Code(s): 690987158 (5) Diabetes mellitus Current Visit: No Status: Chronic Qualifiers: Diabetes mellitus type: type 2 Diabetes mellitus senior care insulin use: with senior care use Diabetes mellitus complication status: with kidney complications Diabetes mellitus complication detail: with chronic kidney disease Chronic kidney disease stage: stage 3 (moderate) Qualified Code(s): E11.22 - Type 2 diabetes mellitus with diabetic chronic kidney disease; N18.3 - Chronic kidney disease, stage 3 (moderate); Z79.4 - residential (current) use of insulin SNOMED Code(s): 08384003 (6) Ureteral obstruction Current Visit: No Status: Chronic s/p bilateral nephrostomy tubes SNOMED Code(s): 65562047 (7) Bony metastasis Current Visit: No Status: Acute SNOMED Code(s): 13397942 (8) Neutropenia Current Visit: Yes Status: Acute likely secondary to chemotherapy s/p neupogen yesterday, hopefully WBC will start improving soon SNOMED Code(s): 997557240 - Recommendations Recommendations: Patiet clinically improved continue rocephin continue oral vancomycin Patient with GPC and is neutropenic. He also has CKD. If i start him on vancomycin empirically there is some risk, and the fact that he is clinically better makes me comfortable with waiting till the cultures finalize and then start antibiotics if needed. monitor labs and for drug toxicity hydration no probiotics while neutropenic Past Med Surg Social Fam HX - Past Medical History Medical history: cancer, diabetes, hyperlipidemia, hypertension, other Additional medical history: prostate cancer Psychiatric history: depression - Past Surgical History Surgical History: cholecystectomy Additional surgical history: partial left knee replacement, bilateral nephro tube, TURP, a port R chest - Social History Smoking Status: Never smoker Smokeless Tobacco Status: No Alcohol use: none Drug use: none - Family History Father Family Member Ethnicity: Non- Living Status: Hx Family Cardiac Disorders: No Hx Family Respiratory Disorders: No Hx Family Cancer: Yes (Colon) Hx Family GI Disorders: No Hx Family Endocrine Disorder: Yes (Diabetes) Hx Family Neuromuscular Disorders: No Hx Family Neurologic Disorders: No Hx Family HEENT Disorders: No Hx Family Autoimmune Disorders: No Brother Family Member Ethnicity: Non- Living Status: Hx Family Cancer: Yes (Colon and lung) Mother Family Member Ethnicity: Non- Living Status: Sister Family Member Ethnicity: Non- Living Status: Still Living Hx Family Endocrine Disorder: Yes (DM) Consult Discharge Plan - Plan Additional Instructions: Home Health has been set up through [facility]. They will contact you with a date and time to complete admission. If you need to contact them please call #[phone] or #[phone]. Referrals: Saleem Ramirez DO [Primary Care Provider] -
[2018-10-11] MEDS: Insulin DETEMIR 100 UNIT/ML X5UNITS SQ SCH (22:11)
[2018-10-12 02:16] LABS: Basophils % 1.5 %; Hemoglobin 9.2 g/dL (12.9-16.9)
[2018-10-12 02:17] LABS: Eosinophils # 0.1 K/mcL (0.0-0.6); Eosinophils % 3.7 %; Hematocrit 28.6 % (37.5-50.1); Immature Granulocytes % 0.7 % (0-4); Lymphocytes # 0.5 K/mcL (0.6-4.6); Lymphocytes % 38.2 %; Mean Corpuscular HGB Conc 32.2 g/dL (31.6-35.5); Mean Corpuscular Volume 96.3 fL (83.0-100.0); Mean Platelet Volume 9.1 fL (9.4-12.4); Monocytes # 0.1 K/mcL (0.0-1.3); Monocytes % 6.6 %; Neutrophils # 0.7 K/mcL (1.6-8.9); Platelet Count 180 K/mcL (140-400); Red Blood Count 2.97 M/mcL (4.19-5.50); Red Cell Distribution Width 14.2 % (11.5-14.5); Segmented Neutrophils % 49.3 %; White Blood Count 1.4 K/mcL (4.3-11.1)
[2018-10-12 02:37] LABS: Potassium 3.8 mEq/L (3.5-5.1)
[2018-10-12 03:00] LABS: Platelet Estimate Normal (Normal)
--- NOTE | 2018-10-12 04:34 | Electrocardiograph Report ---
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
[2018-10-12] MEDS: *HR* Heparin 5,000 UNIT/ML VIAL SQ SCH ×2 (06:12→17:03)
--- NOTE | 2018-10-12 06:39 | Oncology Inp Progress Note ---
Date of Encounter: 10/12/18 Time of Encounter: 16:00 (1) Prostate CA Current Visit: No Status: Chronic Assessment and plan: Metastatic prostate cancer status post prior radiation therapy to prostate, nephrostomy tubes, vertebral metastatic disease, status post surgery, palliative radiation therapy to the back T5-T8, status post androgen receptor blockade with progression was on Taxotere. His PSA had increased, patient has been recently switched to chemotherapy with cabazitaxel. He receives Lupron and denosumab through our clinic. Nausea, vomiting, diarrhea likely side effect of chemotherapy C. difficile neg, UC gm positive cocci, on IV abx Nephrostomy tube changed 09/24/18 He as scheduled appt with me in clinic in a month Oncology: Subj Interval history: Pt has min back pain. His diarrhea is improving - Constitutional General appearance: no acute distress, obese - Head Head exam: Present: atraumatic, normal inspection - Eye Eye exam: Present: sclera anicteric - ENT ENT exam: Present: mucous membranes moist - GI/Abdominal GI/Abdominal exam: Present: normal bowel sounds, soft - Extremities Exam Additional comments: trace edema - Neurological Exam Neurological exam: Present: alert, CN II-XII intact, oriented X3, no focal deficits - Psychiatric Psychiatric exam: Present: normal mood - Skin Skin exam: Present: dry, normal color Oncology: Obj Data - Labs CBC & Chem 7: 10/12/18 02:00 10/12/18 02:00 Consult Discharge Plan - Plan Additional Instructions: Home Health has been set up through [facility]. They will contact you with a date and time to complete admission. If you need to contact them please call #[phone] or #[phone]. Referrals: Saleem Ramirez DO [Primary Care Provider] - Inpatient Charges Provider: Dr. Ryan Ayala Follow up - Inpatient: [id number]
[2018-10-12] MEDS: Insulin LISPRO 300 UNITS/3 ML VIAL SQ SCH ×4 (07:34→20:09)
[2018-10-12] MEDS: Diltiazem CD (24hr) 240 MG CAPSULE PO SCH (08:57)
[2018-10-12] MEDS: Ondansetron ODT 4 MG TAB.RAPDIS PO PRN (08:57)
[2018-10-12] MEDS: cefTRIAXone 1,000 MG in Water for inj. (sterile) 10 ML IVPB SCH (08:58)
[2018-10-12] MEDS: Lactobacillus 1 EACH CAP.SPRINK PO SCH ×2 (08:58→19:44)
[2018-10-12] MEDS: Vancomycin Oral Soln 125 MG/2.5 ML UDC PO SCH ×4 (08:58→19:45)
[2018-10-12] MEDS: *HR* OxyCODONE ER (12 HR) 10 MG TABLET PO SCH ×2 (11:02→22:56)
[2018-10-12] MEDS ORDERED: Ondansetron ODT 4 MG TAB.RAPDIS PO SCH (12:30)
--- NOTE | 2018-10-12 15:34 | Infectious Disease Progress No ---
ID Progress Note Date of Encounter: 10/12/18 Time of Encounter: 15:29 - Subjective Subjective: Patient seen and examined. Clinically doing well. States he has not had a bowel movement since yesterday. No headache no chest pain or shortness of breath no cough no nausea no vomiting. Vital signs noted Labs reviewed Cultures noted - Objective CBC & Chem 7: 10/12/18 02:00 10/12/18 02:00 - Exam Vitals: Temp Pulse Resp BP Pulse Ox 98.1 F 90 16 120/77 93 10/12/18 15:19 10/12/18 15:19 10/12/18 15:19 10/12/18 15:19 10/12/18 15:19 Exam: GENERAL: Comfortable. Laying in bed NAD HEENT: SANTOSH, EOMI LUNGS: Good air sounds bilaterally, no wheezing or rhonchi CV: RRR, S1 S2 ABDOMEN: Soft, nontender, + bowel sounds EXT: Adequate perfusion. No edema NEURO: A&OX3; no focal deficit - Assessment and Plan (1) Sepsis Current Visit: No Status: Acute had 2 SIRS criteria (tachycardia and leukopenia) secondary to UTI and C diff colitis Qualifiers: Sepsis type: sepsis due to unspecified organism Qualified Code(s): A41.9 - Sepsis, unspecified organism SNOMED Code(s): 78216630 (2) C. difficile colitis Current Visit: Yes Status: Acute first episode diarrhea improved SNOMED Code(s): 033098501 (3) Complicated UTI (urinary tract infection) Current Visit: No Status: Acute causative organism Citrobacter and ampicillin sensitive Enterococcus faecalis started on rocephin on admission SNOMED Code(s): 32866617 (4) Prostate CA Current Visit: No Status: Chronic Metastatic prostate cancer status post prior radiation therapy to prostate, nephrostomy tubes, vertebral metastatic disease, status post surgery, palliative radiation therapy to the back T5-T8 on Taxotere last dose Tuesday 10/03 SNOMED Code(s): 585949155 (5) Diabetes mellitus Current Visit: No Status: Chronic Qualifiers: Diabetes mellitus type: type 2 Diabetes mellitus 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 Diabetes mellitus complication status: with kidney complications Diabetes mellitus complication detail: with chronic kidney disease Chronic kidney disease stage: stage 3 (moderate) Qualified Code(s): E11.22 - Type 2 diabetes mellitus with diabetic chronic kidney disease; N18.3 - Chronic kidney disease, stage 3 (moderate); Z79.4 - penitentiary (current) use of insulin SNOMED Code(s): 19141879 (6) Ureteral obstruction Current Visit: No Status: Chronic s/p bilateral nephrostomy tubes SNOMED Code(s): 21823207 (7) Bony metastasis Current Visit: No Status: Acute SNOMED Code(s): 79010556 (8) Neutropenia Current Visit: Yes Status: Acute likely secondary to chemotherapy s/p neupogen yesterday, hopefully WBC will start improving soon SNOMED Code(s): 834676445 - Recommendations Recommendations: DC Rocephin Start Zosyn 3.375 g IV every 8 hours to cover the gram-negative Citrobacter and the Enterococcus faecalis ampicillin sensitive Once patient is ready for discharge and from an infectious disease perspective we are okay with switching him to orals recommend discharging the patient on: levofloxacin 750 mg po q48 (crcl measures at about 40) amoxicillin 500 tid duration of treatment through 10/23/18 continue oral vancomycin 125 q6 through 10/25/18 d/w hospitalist team Consult Discharge Plan - Plan Additional Instructions: Home Health has been set up through [facility]. They will contact you with a date and time to complete admission. If you need to contact them please call #[phone] or #[phone]. Referrals: Saleem Ramirez DO [Primary Care Provider] -
--- NOTE | 2018-10-12 15:57 | Internal Med Progress Note ---
Hospitalist Progress Note - Encounter Date of Encounter: 10/12/18 Time of Encounter: 15:55 - Subjective Interval History: Patient was seen and examined earlier this am. States he feels well. He has not had any loose stools since yesterday - Exam Vitals: Temp Pulse Resp BP Pulse Ox 98.1 F 90 16 120/77 93 10/12/18 15:19 10/12/18 15:19 10/12/18 15:19 10/12/18 15:19 10/12/18 15:19 Exam: Skin: Free of rash and discoloration. Eyes: Sclera is white. There is no discharge from eyes. ENMT: Oral/pharyngeal mucosa is normal in appearance. There is no discharge from nose or ears. Respiratory: Normal breath sounds with no crackles and wheezes bilaterally. CV: Heart is regular with no gallop or murmur. GI: Abdomen is distended and soft with no palpable mass or visceromegaly. : There is no tenderness in patient's flanks bilaterally. Neuro exam: He has good strength in upper and lower extremities. He has normal eye movements. Psychiatric: He has normal affect. His thought process is appropriate to the situation. - Assessment and Plan (1) Dehydration Current Visit: Yes Status: Acute Assessment and Plan: Patient has been experiencing nausea vomiting and diarrhea -has received his fifth cycle of Taxotere. Which could be contributing to his symptoms. However it appears he also has UTI-urine and blood cultures have been sent. GI panel is pending-( 10/10 Patient did receive IV fluids -noted improvement in renal function continue IV fluids today He has a poor oral intake Had one episode of loose stool today GI panel positive for C. difficile initiated on oral vancomycin No nausea and vomiting today Continue with antibiotics as needed Monitor electrolytes 10/12 Renal Function stable at this time Tolerating oral intake No loose stools today GI panel positive for C. difficile initiated on oral vancomycin No nausea and vomiting today Continue with antibiotics Monitor electrolytes (2) UTI (urinary tract infection) Current Visit: Yes Status: Acute Assessment and Plan: Patient does have history of nephrostomy tube and repeated UTI-with previous cultures growing Emmanuelle tropicallis E coli -urine culture has been sent and is pending at this time. Continue with empiric Rocephin.- he maybe colonized - however due to immunocompromise state we will empirically treat 10/11 Urine culture grew Citrobacter freundili and gram-positive cocci. Sensitive to Rocephin which we will continue We will consult infectious disease due to patient's renal function and multiple organisms, immunocompromised 10/12 Urine culture grew Citrobacter freundili and Enterococcus faecalis-infectious disease consulted recommending Zosyn while inpatient and amoxicillin and levofloxacin for 14 days upon discharge Infectious disease consulted and appreciate recommendations (3) Anemia Current Visit: No Status: Acute Assessment and Plan: Appears to be stable at this time continue with folate (4) Bony metastasis Current Visit: No Status: Acute Assessment and Plan: Patient does have history of prostate cancer and is receiving chemotherapy per oncology. 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 Will discuss with oncology 10/11 Patient will follow up with oncology in one month-he is to follow-up with [facility] neurology in November 20 as above (5) DVT prophylaxis Current Visit: No Status: Acute Assessment and Plan: Heparin subcutaneous (6) SIRS (systemic inflammatory response syndrome) Current Visit: No Status: Acute Assessment and Plan: Presented with leukopenia and tachycardia-concerns for infectious process patient is immunocompromised history of UTI however he does have nephrostomy tubes-which could be chronic findings suggestive of colonization. Urine culture has been sent and is pending blood cultures are negative this time-continue with Rocephin which was sensitive to previous cultures also concern for gastroenteritis GI panel is pending at this time 10/11 White count this a.m. 1.6 patient is been afebrile continues with tachycardia GI panel revealed C. difficile-initiated on oral vancomycin Urine culture Citrobacter freundili and gram-positive cocci. Continue Rocephin Infectious disease consulted for multiple organisms immunocompromised patient with CKD (7) Chronic kidney disease, stage III (moderate) Current Visit: No Status: Chronic Assessment and Plan: History CK D-yesterday lab work appears to be around baseline currently waiting for morning labs We will monitor intake and output Avoid nephrotoxins 10/11 History CKG stage III was given IV fluids overnight appears creatinine around baseline Continue to monitor avoid nephrotoxins Renal dose antibiotics 10/12 appears stable at this time avoid nephrotoxins- renal dose ATB (8) Diabetes mellitus Current Visit: No Status: Chronic Assessment and Plan: Accu-Cheks before meals at bedtime with sliding scale insulin as well as basal appetite slowly improving - diabetic diet (9) Neutropenia Current Visit: Yes Status: Acute Assessment and Plan: most likely secondary to chemotherapy Had neupogen 10/10 will monitor closely for improvement (10) Sepsis Current Visit: No Status: Acute Assessment and Plan: Present with 2 sirs criteria (tachycardia and leukopenia)-secondary to UTI and C. difficile colitis Patient is afebrile - Time Spent with Patient Total time spent is greater than 50% in coordination of care (as documented) at patient's floor/unit and/or counseling patient: Internal Medicine: Result - Labs CBC & Chem 7: 10/12/18 02:00 10/12/18 02:00 Labs: Short CBC 10/12/18 Range/Units 02:00 WBC 1.4 L (4.3-11.1) K/mcL Hgb 9.2 L (12.9-16.9) g/dL Hct 28.6 L (37.5-50.1) % Plt Count 180 (140-400) K/mcL Neutrophils # 0.7 L (1.6-8.9) K/mcL BMP 10/12/18 02:00 Sodium 138 Potassium 3.8 Chloride 111 H Carbon Dioxide 21 L BUN 20 Creatinine 1.67 H Glucose 152 H Calcium 8.0 L Consult Discharge Plan - Plan Additional Instructions: Home Health has been set up through [facility]. They will contact you with a date and time to complete admission. If you need to contact them please call #[phone] or #[phone]. 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: with intermediate use Diabetes mellitus complication status: with kidney complications Diabetes mellitus complication detail: with chronic kidney disease Chronic kidney disease stage: stage 3 (moderate) Qualified Code(s): E11.22 - Type 2 diabetes mellitus with diabetic chronic kidney disease; N18.3 - Chronic kidney disease, stage 3 (moderate); Z79.4 - half-way (current) use of 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
--- NOTE | 2018-10-12 17:01 | Oncology Inp Progress Note ---
Date of Encounter: 10/12/18 Time of Encounter: 12:00 (1) Prostate CA Current Visit: No Status: Chronic Assessment and plan: Metastatic prostate cancer status post prior radiation therapy to prostate, nephrostomy tubes, vertebral metastatic disease, status post surgery, palliative radiation therapy to the back T5-T8, status post androgen receptor blockade with progression was on Taxotere. His PSA had increased, patient has been recently switched to chemotherapy with cabazitaxel. He receives Lupron and denosumab through our clinic. Nausea, vomiting, diarrhea likely side effect of chemotherapy, improving C. difficile toxin neg, on Rx due to symptoms/PCR UC gm positive cocci, on IV abx, ID on board Nephrostomy tube changed 09/24/18 He as scheduled appt with me in clinic in a month Oncology: Subj Interval history: diarrhea resolving, feels much improved - Constitutional General appearance: no acute distress - Head Head exam: Present: atraumatic, normal inspection - Eye Eye exam: Present: sclera anicteric - Respiratory Respiratory exam: Present: CTAB - Cardiovascular Cardiovascular exam: Present: +S1, +S2 - GI/Abdominal GI/Abdominal exam: Present: normal bowel sounds, soft - Extremities Exam Extremities exam: Present: pedal edema - Neurological Exam Neurological exam: Present: alert, oriented X3, no focal deficits Oncology: Obj Data - Labs CBC & Chem 7: 10/12/18 02:00 10/12/18 02:00 Consult Discharge Plan - Plan Additional Instructions: Home Health has been set up through [facility]. They will contact you with a date and time to complete admission. If you need to contact them please call #[phone] or #[phone]. Referrals: Saleem Ramirez DO [Primary Care Provider] - Inpatient Charges Provider: Dr. Ryan Ayala Follow up - Inpatient: [id number]
[2018-10-12] MEDS: Ondansetron ODT 4 MG TAB.RAPDIS PO SCH (17:03)
[2018-10-12] MEDS: OLANZapine 5 MG TAB.RAPDIS PO SCH (19:44)
[2018-10-12] MEDS: Gabapentin 100 MG CAPSULE PO SCH (19:44)
[2018-10-12] MEDS: Insulin DETEMIR 100 UNIT/ML X5UNITS SQ SCH (20:14)
[2018-10-13] MEDS: *HR* Heparin 5,000 UNIT/ML VIAL SQ SCH ×2 (04:50→18:15)
[2018-10-13 05:28] LABS: Immature Granulocytes % 1.6 % (0-4); Red Cell Distribution Width 14.1 % (11.5-14.5)
[2018-10-13 05:30] LABS: Basophils % 1.6 %; Eosinophils % 3.2 %; Hemoglobin 14.8 g/dL (12.9-16.9); Lymphocytes % 39.7 %; Mean Corpuscular HGB Conc 32.2 g/dL (31.6-35.5); Mean Corpuscular Hemoglobin 30.4 pg (28.0-33.3); Mean Corpuscular Volume 94.5 fL (83.0-100.0); Mean Platelet Volume 9.6 fL (9.4-12.4); Monocytes # 0.1 K/mcL (0.0-1.3); Monocytes % 11.1 %; Neutrophils # 0.3 K/mcL (1.6-8.9); Platelet Count 123 K/mcL (140-400); Red Blood Count 4.87 M/mcL (4.19-5.50); Segmented Neutrophils % 42.8 %
[2018-10-13 05:32] LABS: Lymphocytes # 0.2 K/mcL (0.6-4.6)
[2018-10-13 05:33] LABS: White Blood Count 0.6 K/mcL (4.3-11.1)
[2018-10-13 05:39] LABS: Calcium 9.1 mg/dL (8.6-10.3); Potassium 3.8 mEq/L (3.5-5.1)
[2018-10-13 06:01] LABS: Platelet Estimate Slight Decrease (Normal); Reactive Lymphocytes Present (Not Present)
[2018-10-13] MEDS ORDERED: Piperacillin/Tazobactam 3.375 GM in 0.9 % Sodium Chloride Mini Bag 100 ML IVPB SCH (08:00)
[2018-10-13] MEDS ORDERED: Piperacillin/Tazobactam 3.375 GM in 0.9 % Sodium Chloride Mini Bag 100 ML IVPB ONE (08:00)
[2018-10-13] MEDS: Lactobacillus 1 EACH CAP.SPRINK PO SCH ×2 (08:46→20:40)
[2018-10-13] MEDS: *HR* OxyCODONE ER (12 HR) 10 MG TABLET PO SCH ×2 (08:47→21:55)
[2018-10-13] MEDS: Diltiazem CD (24hr) 240 MG CAPSULE PO SCH (08:47)
[2018-10-13] MEDS: Ondansetron ODT 4 MG TAB.RAPDIS PO SCH ×3 (08:47→18:08)
[2018-10-13] MEDS: Insulin LISPRO 300 UNITS/3 ML VIAL SQ SCH ×4 (08:49→20:40)
[2018-10-13] MEDS: Vancomycin Oral Soln 125 MG/2.5 ML UDC PO SCH ×4 (08:52→20:41)
--- NOTE | 2018-10-13 16:39 | Internal Med Progress Note ---
Hospitalist Progress Note - Encounter Date of Encounter: 10/13/18 Time of Encounter: 16:34 - Subjective Interval History: Patient was seen and examined at bedside he states he feels much better today-he continues to have a drop in his white count there is no fever we will continue with antibiotic treatment and monitor closely - Exam Vitals: Temp Pulse Resp BP Pulse Ox 98.8 F 62 15 96/57 94 10/13/18 12:09 10/13/18 12:09 10/13/18 12:09 10/13/18 12:09 10/13/18 12:09 Exam: Skin: Free of rash and discoloration. Eyes: Sclera is white. There is no discharge from eyes. ENMT: Oral/pharyngeal mucosa is normal in appearance. There is no discharge from nose or ears. Respiratory: Normal breath sounds with no crackles and wheezes bilaterally. CV: Heart is regular with no gallop or murmur. GI: Abdomen is distended and soft with no palpable mass or visceromegaly. : There is no tenderness in patient's flanks bilaterally. Neuro exam: He has good strength in upper and lower extremities. He has normal eye movements. Psychiatric: He has normal affect. His thought process is appropriate to the situation. - Assessment and Plan (1) Dehydration Current Visit: Yes Status: Acute Assessment and Plan: Patient has been experiencing nausea vomiting and diarrhea -has received his fifth cycle of Taxotere. Which could be contributing to his symptoms. However it appears he also has UTI-urine and blood cultures have been sent. GI panel is pending-( 10/10 Patient did receive IV fluids -noted improvement in renal function continue IV fluids today He has a poor oral intake Had one episode of loose stool today GI panel positive for C. difficile initiated on oral vancomycin No nausea and vomiting today Continue with antibiotics as needed Monitor electrolytes 10/12 Renal Function stable at this time Tolerating oral intake No loose stools today GI panel positive for C. difficile initiated on oral vancomycin No nausea and vomiting today Continue with antibiotics Monitor electrolytes 10/13 Seems to be tolerating oral intake this time Loose stools today No nausea vomiting Monitor electrolytes (2) UTI (urinary tract infection) Current Visit: Yes Status: Acute Assessment and Plan: Patient does have history of nephrostomy tube and repeated UTI-with previous cultures growing Emmanuelle tropicallis E coli -urine culture has been sent and is pending at this time. Continue with empiric Rocephin.- he maybe colonized - however due to immunocompromise state we will empirically treat 10/11 Urine culture grew Citrobacter freundili and gram-positive cocci. Sensitive to Rocephin which we will continue We will consult infectious disease due to patient's renal function and multiple organisms, immunocompromised 10/12 Urine culture grew Citrobacter freundili and Enterococcus faecalis-infectious disease consulted recommending Zosyn while inpatient and amoxicillin and levofloxacin for 14 days upon discharge Infectious disease consulted and appreciate recommendations 10/13 Urine culture grew Citrobacter freundili and Enterococcus faecalis-infectious disease consulted recommending Zosyn while inpatient and amoxicillin and levofloxacin for 14 days upon discharge (3) Anemia Current Visit: No Status: Acute Assessment and Plan: Appears to be stable at this time continue with folate (4) Bony metastasis Current Visit: No Status: Acute Assessment and Plan: Patient does have history of prostate cancer and is receiving chemotherapy per oncology. 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 Will discuss with oncology 10/11 Patient will follow up with oncology in one month-he is to follow-up with [facility] neurology in November 20 as above (5) DVT prophylaxis Current Visit: No Status: Acute Assessment and Plan: Heparin subcutaneous (6) SIRS (systemic inflammatory response syndrome) Current Visit: No Status: Acute Assessment and Plan: Presented with leukopenia and tachycardia-concerns for infectious process patient is immunocompromised history of UTI however he does have nephrostomy tubes-which could be chronic findings suggestive of colonization. Urine culture has been sent and is pending blood cultures are negative this time-continue with Rocephin which was sensitive to previous cultures also concern for gastroenteritis GI panel is pending at this time 10/11 White count this a.m. 1.6 patient is been afebrile continues with tachycardia GI panel revealed C. difficile-initiated on oral vancomycin Urine culture Citrobacter freundili and gram-positive cocci. Continue Rocephin Infectious disease consulted for multiple organisms immunocompromised patient with CKD (7) Chronic kidney disease, stage III (moderate) Current Visit: No Status: Chronic Assessment and Plan: History CK D-yesterday lab work appears to be around baseline currently waiting for morning labs We will monitor intake and output Avoid nephrotoxins 10/11 History CKG stage III was given IV fluids overnight appears creatinine around baseline Continue to monitor avoid nephrotoxins Renal dose antibiotics 10/12 appears stable at this time avoid nephrotoxins- renal dose ATB 10/13 appears stable at this time avoid nephrotoxins- renal dose ATB (8) Diabetes mellitus Current Visit: No Status: Chronic Assessment and Plan: Accu-Cheks before meals at bedtime with sliding scale insulin as well as basal appetite slowly improving - diabetic diet (9) Neutropenia Current Visit: Yes Status: Acute Assessment and Plan: most likely secondary to chemotherapy Had neupogen 10/10 will monitor closely for improvement (10) Sepsis Current Visit: No Status: Acute Assessment and Plan: Present with 2 sirs criteria (tachycardia and leukopenia)-secondary to UTI and C. difficile colitis Patient is afebrile 10/13 No tachycardia and fever however continues to leukopenic secondary to UTI and C. difficile colitis - Time Spent with Patient Total time spent is greater than 50% in coordination of care (as documented) at patient's floor/unit and/or counseling patient: Internal Medicine: Result - Labs CBC & Chem 7: 10/13/18 04:55 10/13/18 04:55 Labs: Short CBC 10/13/18 Range/Units 04:55 WBC 0.6 L* D (4.3-11.1) K/mcL Hgb 14.8 D (12.9-16.9) g/dL Hct 46.0 (37.5-50.1) % Plt Count 123 L (140-400) K/mcL Neutrophils # 0.3 L (1.6-8.9) K/mcL BMP 10/13/18 04:55 Sodium 138 Potassium 3.8 Chloride 106 Carbon Dioxide 24 BUN 22 Creatinine 1.75 H Glucose 208 H Calcium 9.1 Consult Discharge Plan - Plan Additional Instructions: Home Health has been set up through [facility]. They will contact you with a date and time to complete admission. If you need to contact them please call #[phone] or #[phone]. Referrals: Saleem Ramirez DO [Primary Care Provider] - (Appt has been requested. ) (2) UTI (urinary tract infection) Qualifiers: Urinary tract infection type: acute cystitis Hematuria presence: with hematuria Qualified Code(s): N30.01 - Acute cystitis with hematuria (3) Anemia Qualifiers: Anemia type: due to chronic kidney disease Chronic kidney disease stage: unspecified stage Qualified Code(s): N18.9 - Chronic kidney disease, unspecified; D63.1 - Anemia in chronic kidney disease (8) Diabetes mellitus Qualifiers: Diabetes mellitus type: type 2 Diabetes mellitus rn long term care insulin use: with rn long term care use Diabetes mellitus complication status: with kidney complications Diabetes mellitus complication detail: with chronic kidney disease Chronic kidney disease stage: stage 3 (moderate) Qualified Code(s): E11.22 - Type 2 diabetes mellitus with diabetic chronic kidney disease; N18.3 - Chronic kidney disease, stage 3 (moderate); Z79.4 - assisted (current) use of 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
[2018-10-13] MEDS: Piperacillin/Tazobactam 3.375 GM in 0.9 % Sodium Chloride Mini Bag 100 ML IVPB SCH (18:03)
[2018-10-13] MEDS: Insulin DETEMIR 100 UNIT/ML X5UNITS SQ SCH (20:39)
[2018-10-13] MEDS: OLANZapine 5 MG TAB.RAPDIS PO SCH (20:40)
[2018-10-13] MEDS: Gabapentin 100 MG CAPSULE PO SCH (20:40)
[2018-10-14] MEDS: Piperacillin/Tazobactam 3.375 GM in 0.9 % Sodium Chloride Mini Bag 100 ML IVPB SCH ×3 (01:29→17:17)
[2018-10-14] MEDS: *HR* Heparin 5,000 UNIT/ML VIAL SQ SCH ×2 (05:41→17:21)
[2018-10-14 06:25] LABS: Calcium 9.4 mg/dL (8.6-10.3); Potassium 3.6 mEq/L (3.5-5.1)
[2018-10-14 06:33] LABS: Eosinophils # 0.1 K/mcL (0.0-0.6); Eosinophils % 2.9 %; Hematocrit 29.2 % (37.5-50.1); Hemoglobin 9.5 g/dL (12.9-16.9); Immature Granulocytes % 0.5 % (0-4); Immature Platelets 2.3 % (1.1-6.1); Lymphocytes # 0.6 K/mcL (0.6-4.6); Lymphocytes % 26.7 %; Mean Corpuscular HGB Conc 32.5 g/dL (31.6-35.5); Mean Corpuscular Hemoglobin 30.5 pg (28.0-33.3); Mean Corpuscular Volume 93.9 fL (83.0-100.0); Mean Platelet Volume 9.7 fL (9.4-12.4); Monocytes # 0.2 K/mcL (0.0-1.3); Monocytes % 11.4 %; Neutrophils # 1.2 K/mcL (1.6-8.9); Platelet Count 193 K/mcL (140-400); Red Blood Count 3.11 M/mcL (4.19-5.50); Red Cell Distribution Width 14.4 % (11.5-14.5); Segmented Neutrophils % 57.5 %; White Blood Count 2.1 K/mcL (4.3-11.1)
[2018-10-14] MEDS: Diltiazem CD (24hr) 240 MG CAPSULE PO SCH (08:22)
[2018-10-14] MEDS: Lactobacillus 1 EACH CAP.SPRINK PO SCH ×2 (08:22→20:42)
[2018-10-14] MEDS: Ondansetron ODT 4 MG TAB.RAPDIS PO SCH ×3 (08:23→17:17)
[2018-10-14] MEDS: Vancomycin Oral Soln 125 MG/2.5 ML UDC PO SCH ×4 (08:23→20:42)
[2018-10-14] MEDS: Insulin LISPRO 300 UNITS/3 ML VIAL SQ SCH ×4 (08:28→20:43)
[2018-10-14] MEDS: *HR* OxyCODONE ER (12 HR) 10 MG TABLET PO SCH ×2 (09:04→20:43)
[2018-10-14] MEDS ORDERED: 0.9 % Sodium Chloride 500 ML IVC SCH (10:30)
[2018-10-14 15:39] LABS: Calcium 9.3 mg/dL (8.6-10.3); Potassium 3.7 mEq/L (3.5-5.1)
[2018-10-14] MEDS ORDERED: Furosemide 20 MG/2 ML VIAL IVP ONE (16:20)
--- NOTE | 2018-10-14 16:34 | Internal Med Progress Note ---
Hospitalist Progress Note - Encounter Date of Encounter: 10/14/18 Time of Encounter: 16:31 - Subjective Interval History: Patient was seen and examined at bedside he did have a slight increase in his creatinine however his ANC did improve discussed with hematology and they are located him going home and following up as outpatient we will recheck creatinine - Exam Vitals: Temp Pulse Resp BP Pulse Ox 97.9 F 94 15 110/73 98 10/14/18 11:35 10/14/18 11:35 10/14/18 11:35 10/14/18 11:35 10/14/18 11:35 Exam: Skin: Free of rash and discoloration. Eyes: Sclera is white. There is no discharge from eyes. ENMT: Oral/pharyngeal mucosa is normal in appearance. There is no discharge from nose or ears. Respiratory: Normal breath sounds with no crackles and wheezes bilaterally. CV: Heart is regular with no gallop or murmur. GI: Abdomen is distended and soft with no palpable mass or visceromegaly. : There is no tenderness in patient's flanks bilaterally. Neuro exam: He has good strength in upper and lower extremities. He has normal eye movements. Psychiatric: He has normal affect. His thought process is appropriate to the situation. - Assessment and Plan (1) Dehydration Current Visit: Yes Status: Acute Assessment and Plan: Patient has been experiencing nausea vomiting and diarrhea -has received his fifth cycle of Taxotere. Which could be contributing to his symptoms. However it appears he also has UTI-urine and blood cultures have been sent. GI panel is pending-( 10/10 Patient did receive IV fluids -noted improvement in renal function continue IV fluids today He has a poor oral intake Had one episode of loose stool today GI panel positive for C. difficile initiated on oral vancomycin No nausea and vomiting today Continue with antibiotics as needed Monitor electrolytes 10/12 Renal Function stable at this time Tolerating oral intake No loose stools today GI panel positive for C. difficile initiated on oral vancomycin No nausea and vomiting today Continue with antibiotics Monitor electrolytes 10/13 Seems to be tolerating oral intake this time Loose stools today No nausea vomiting Monitor electrolytes 10/14 Seems to be tolerating oral intake this time No Loose stools today No nausea vomiting Monitor electrolytes (2) UTI (urinary tract infection) Current Visit: Yes Status: Acute Assessment and Plan: Patient does have history of nephrostomy tube and repeated UTI-with previous cultures growing Emmanuelle tropicallis E coli -urine culture has been sent and is pending at this time. Continue with empiric Rocephin.- he maybe colonized - however due to immunocompromise state we will empirically treat 10/11 Urine culture grew Citrobacter freundili and gram-positive cocci. Sensitive to Rocephin which we will continue We will consult infectious disease due to patient's renal function and multiple organisms, immunocompromised 10/12 Urine culture grew Citrobacter freundili and Enterococcus faecalis-infectious disease consulted recommending Zosyn while inpatient and amoxicillin and levofloxacin for 14 days upon discharge Infectious disease consulted and appreciate recommendations 10/13 Urine culture grew Citrobacter freundili and Enterococcus faecalis-infectious disease consulted recommending Zosyn while inpatient and amoxicillin and levofloxacin for 14 days upon discharge 10/14 as above (3) Anemia Current Visit: No Status: Acute Assessment and Plan: Appears to be stable at this time continue with folate (4) Bony metastasis Current Visit: No Status: Acute Assessment and Plan: Patient does have history of prostate cancer and is receiving chemotherapy per oncology. 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 Will discuss with oncology 10/11 Patient will follow up with oncology in one month-he is to follow-up with [facility] neurology in November 20 as above 10/14 as above (5) DVT prophylaxis Current Visit: No Status: Acute (6) SIRS (systemic inflammatory response syndrome) Current Visit: No Status: Acute Assessment and Plan: Presented with leukopenia and tachycardia-concerns for infectious process patient is immunocompromised history of UTI however he does have nephrostomy tubes-which could be chronic findings suggestive of colonization. Urine culture has been sent and is pending blood cultures are negative this time-continue with Rocephin which was sensitive to previous cultures also concern for gastroenteritis GI panel is pending at this time 10/11 White count this a.m. 1.6 patient is been afebrile continues with tachycardia GI panel revealed C. difficile-initiated on oral vancomycin Urine culture Citrobacter freundili and gram-positive cocci. Continue Rocephin Infectious disease consulted for multiple organisms immunocompromised patient with CKD (7) Chronic kidney disease, stage III (moderate) Current Visit: No Status: Chronic Assessment and Plan: History CK D-yesterday lab work appears to be around baseline currently waiting for morning labs We will monitor intake and output Avoid nephrotoxins 10/11 History CKG stage III was given IV fluids overnight appears creatinine around baseline Continue to monitor avoid nephrotoxins Renal dose antibiotics 10/12 appears stable at this time avoid nephrotoxins- renal dose ATB 10/13 appears stable at this time avoid nephrotoxins- renal dose ATB 10/14 He did have an increase in creatinine today 2.33 we will give a dose of IV Lasix Renal dose antibiotics Avoid nephrotoxins Monitor intake and output (8) Diabetes mellitus Current Visit: No Status: Chronic Assessment and Plan: Accu-Cheks before meals at bedtime with sliding scale insulin as well as basal appetite slowly improving - diabetic diet (9) Neutropenia Current Visit: Yes Status: Acute Assessment and Plan: most likely secondary to chemotherapy Had Neulasta 10/03 I did speak with Dr. Galicia concerning neutropenia patient was given 1 dose of Neulasta ANC 1281 this morning we will stop Neupogen and patient will follow-up with oncology as outpatient (10) Sepsis Current Visit: No Status: Acute Assessment and Plan: Present with 2 sirs criteria (tachycardia and leukopenia)-secondary to UTI and C. difficile colitis Patient is afebrile 10/13 No tachycardia and fever however continues to leukopenic secondary to UTI and C. difficile colitis 10/14 No tachycardia or fever leukopenia improving continue with current anabiotic's - Time Spent with Patient Total time spent is greater than 50% in coordination of care (as documented) at patient's floor/unit and/or counseling patient: Internal Medicine: Result - Labs CBC & Chem 7: 10/14/18 05:50 10/14/18 15:04 Labs: Short CBC 10/14/18 Range/Units 05:50 WBC 2.1 L D (4.3-11.1) K/mcL Hgb 9.5 L D (12.9-16.9) g/dL Hct 29.2 L (37.5-50.1) % Plt Count 193 D (140-400) K/mcL Neutrophils # 1.2 L (1.6-8.9) K/mcL BMP 10/14/18 10/14/18 05:50 15:04 Sodium 137 136 Potassium 3.6 3.7 Chloride 104 105 Carbon Dioxide 25 26 BUN 23 23 Creatinine 1.98 H 2.33 H Glucose 172 H 243 H Calcium 9.4 9.3 Consult Discharge Plan - Plan Additional Instructions: Home Health has been set up through [facility]. They will contact you with a date and time to complete admission. If you need to contact them please call #[phone] or #[phone]. Referrals: Saleem Ramirez DO [Primary Care Provider] - (Appt has been requested. ) (2) UTI (urinary tract infection) Qualifiers: Urinary tract infection type: acute cystitis Hematuria presence: with hematuria Qualified Code(s): N30.01 - Acute cystitis with hematuria (3) Anemia Qualifiers: Anemia type: due to chronic kidney disease Chronic kidney disease stage: unspecified stage Qualified Code(s): N18.9 - Chronic kidney disease, unspecified; D63.1 - Anemia in chronic kidney disease (8) Diabetes mellitus Qualifiers: Diabetes mellitus type: type 2 Diabetes mellitus superintendent container terminal insulin use: with group home use Diabetes mellitus complication status: with kidney complications Diabetes mellitus complication detail: with chronic kidney disease Chronic kidney disease stage: stage 3 (moderate) Qualified Code(s): E11.22 - Type 2 diabetes mellitus with diabetic chronic kidney disease; N18.3 - Chronic kidney disease, stage 3 (moderate); Z79.4 - extermination supervisor (current) use of 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
--- NOTE | 2018-10-14 18:33 | Event Note ---
Date of Encounter: 10/14/18 Time of Encounter: 18:31 Nursing staff reports that patient had a bloody stool this evening. Stated he had a bowel movement and that is when it was filled with blood. states the patient does have a history of hemorrhoids we will monitor H&H and type and screen discontinue heparin subcutaneous. We will monitor closely we will update night team
[2018-10-14] MEDS: Insulin DETEMIR 100 UNIT/ML X5UNITS SQ SCH (20:42)
[2018-10-14] MEDS: OLANZapine 5 MG TAB.RAPDIS PO SCH (20:42)
[2018-10-14] MEDS: Gabapentin 100 MG CAPSULE PO SCH (20:42)
[2018-10-14 21:16] LABS: Hematocrit 30.3 % (37.5-50.1); Hemoglobin 9.8 g/dL (12.9-16.9)
[2018-10-15] MEDS: Piperacillin/Tazobactam 3.375 GM in 0.9 % Sodium Chloride Mini Bag 100 ML IVPB SCH ×3 (00:53→17:26)
[2018-10-15 05:33] LABS: Hemoglobin 9.9 g/dL (12.9-16.9); Lymphocytes # 0.7 K/mcL (0.6-4.6); Mean Corpuscular Hemoglobin 31.2 pg (28.0-33.3); Mean Corpuscular Volume 94.6 fL (83.0-100.0); Mean Platelet Volume 9.3 fL (9.4-12.4); Nucleated Red Blood Cells 4.2 /100 WBC (0); Platelet Count 197 K/mcL (140-400); Red Blood Count 3.17 M/mcL (4.19-5.50); Red Cell Distribution Width 14.6 % (11.5-14.5); White Blood Count 2.4 K/mcL (4.3-11.1)
[2018-10-15 05:50] LABS: Calcium 9.8 mg/dL (8.6-10.3); Potassium 3.5 mEq/L (3.5-5.1)
[2018-10-15 06:12] LABS: Monocytes # 0.2 K/mcL (0.0-1.3); Neutrophils # 1.4 K/mcL (1.6-8.9)
[2018-10-15 06:13] LABS: Anisocytosis 1+ (Not Present); Platelet Estimate Normal (Normal); Polychromasia 1+ (Not Present)
[2018-10-15] MEDS: Vancomycin Oral Soln 125 MG/2.5 ML UDC PO SCH ×4 (08:51→22:01)
[2018-10-15] MEDS: Insulin LISPRO 300 UNITS/3 ML VIAL SQ SCH ×4 (08:51→21:59)
[2018-10-15] MEDS: *HR* OxyCODONE ER (12 HR) 10 MG TABLET PO SCH ×2 (08:52→22:00)
[2018-10-15] MEDS: Ondansetron ODT 4 MG TAB.RAPDIS PO SCH ×3 (08:52→17:25)
[2018-10-15] MEDS: Lactobacillus 1 EACH CAP.SPRINK PO SCH ×2 (08:52→21:58)
[2018-10-15] MEDS: Diltiazem CD (24hr) 240 MG CAPSULE PO SCH (08:52)
--- NOTE | 2018-10-15 12:13 | Oncology Inp Progress Note ---
<Demond Price - Last Filed: 10/15/18 16:30> Date of Encounter: 10/15/18 Time of Encounter: 16:30 Oncology: Obj Data - Labs CBC & Chem 7: 10/15/18 05:06 10/15/18 05:06 Consult Discharge Plan - Plan Additional Instructions: Home Health has been set up through [facility]. They will contact you with a date and time to complete admission. If you need to contact them please call #[phone] or #[phone]. Referrals: Saleem Ramirez DO [Primary Care Provider] - (Appt has been requested. ) Inpatient Charges Provider: Dr. Samaria Price Follow up - Inpatient: [id number] - Attending Attestation I examined this patient and my medical decision-making was reviewed with the Advanced Practice Nurse. I agree with the documented findings, disposition and treatment plan as described except to the extent set forth below. WBC 2.4/ ANC 1.4, okay to d/c neupogen Will check a PSA, iron studies, B12 level, folate level, blood smear, LDH, retic count Will also perform a MM w/u <Brielle Gardner L - Last Filed: 10/15/18 17:21> Date of Encounter: 10/15/18 (1) Prostate CA Current Visit: No Status: Chronic Assessment and plan: Metastatic prostate cancer status post prior radiation therapy to prostate, nephrostomy tubes, vertebral metastatic disease, status post surgery, palliative radiation therapy to the back T5-T8, status post androgen receptor blockade with progression was on Taxotere. His PSA had increased, patient has been recently switched to chemotherapy with cabazitaxel which he receives at [facility]. He receives Lupron and denosumab through our clinic. Plan: Check PSA Continue outpatient follow up with [facility] and Dr. Ceron Likely plan to follow up on lab results if nutritional studies need repletion,otherwise plan to sign off and follow up as outpatient, please reach out with any further concerns (2) Acute kidney injury superimposed on chronic kidney disease Current Visit: No Status: Acute Assessment and plan: Faisal chronic kidney disease followed by Dr. Lott on outpatient basis Evidence of mild acute kidney injury above baseline Nephrology has been consulted, appreciate recommendations Per nephrology note, recommend additional fluids as APOORVA appears to be likely secondary to volume depletion (3) Neutropenia Current Visit: Yes Status: Acute Assessment and plan: 2/2 treatment (last dose cabazitaxel 10/08) complicated in the setting of sepsis, UTI, C. diff colitis S/P neupogen with good response in ANC to 1.4K today Plan: Neupogen stopped, ANC recovered today ID on board, appreciate recs UTI:causative organism Citrobacter and ampicillin sensitive Enterococcus faecalis, started on rocephin on admission Qualifiers: Neutropenia type: secondary to cancer chemotherapy Qualified Code(s): D70.1 - Agranulocytosis secondary to cancer chemotherapy; T45.1X5A - Adverse effect of antineoplastic and immunosuppressive drugs, initial encounter (4) Anemia Current Visit: No Status: Chronic Assessment and plan: Chronic anemia in the setting of CKD and chemo Patient did have an episode of rectal bleeding last pm, appears to be consistent with hematochezia with history of hemorrhoids, H&H stable, no further bleeding, prophylactic AC stopped, closely monitor Plan: Check iron studies, B12 level, folate level, blood smear, LDH, retic count Qualifiers: Anemia type: other cause Other causes of anemia: other cause, not classified Qualified Code(s): D64.89 - Other specified anemias - Constitutional General appearance: no acute distress, obese, no febrile - Head Head exam: Present: atraumatic - ENT ENT exam: Present: mucous membranes moist, normal oropharynx Oncology: Obj Data - Labs CBC & Chem 7: 10/15/18 05:06 10/15/18 05:06 Inpatient Charges Provider: Dr. Samaria Price
--- NOTE | 2018-10-15 12:22 | Nephrology Consult Note ---
Date of Encounter: 10/15/18 Time of Encounter: 12:18 Assessment and Plan (1) Acute kidney injury superimposed on chronic kidney disease Current Visit: No Status: Acute The patient has a history of chronic kidney disease that is followed by Dr. Kelly outpatient basis. He currently has mild acute kidney injury superposed on chronic kidney disease. Clinically I think it is likely this is secondary to volume depletion. I recommend giving additional fluids will start with a liter of saline to evaluate wide his renal response is. Per review of his chart and talking with his the patient has a history of acute kidney injury when he becomes dehydrated. I recommend avoiding unnecessary nephrotoxic agents. I recommend adjusting medications for renal function. Thank you for this interesting consult we will continue to follow with you. (2) C. difficile colitis Current Visit: Yes Status: Acute Per the primary team. 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 insulin use: with mcc use Diabetes mellitus complication status: with kidney complications Diabetes mellitus complication detail: with chronic kidney disease Chronic kidney disease stage: stage 3 (moderate) Qualified Code(s): E11.22 - Type 2 diabetes mellitus with diabetic chronic kidney disease; N18.3 - Chronic kidney disease, stage 3 (moderate); Z79.4 - exterminator (current) use of insulin (6) GERD (gastroesophageal reflux disease) Current Visit: No Status: Chronic Qualifiers: Esophagitis presence: esophagitis presence not specified Qualified Code(s): K21.9 - Gastro-esophageal reflux disease without esophagitis (7) Hypertension Current Visit: No Status: Chronic Titrate blood pressure medication as needed. Qualifiers: Hypertension type: essential hypertension Qualified Code(s): I10 - Essential (primary) hypertension (8) Prostate cancer Current Visit: No Status: Chronic History of Present Illness - Reason for Consult Consult date: 10/15/18 Acute Kidney Injury, Chronic Kidney Disease - Chief Complaint ester/ckd - History of Present Illness Mr. Rivera is a 60-year-old gentleman with a history of chronic kidney disease, and prostate cancer who presents with nausea and decreased appetite. History is obtained from review of the medical records and history was added by his who is at the bedside. The patient recently was taking a new chemotherapy for his prostate cancer and began to experience a decrease in his appetite. The states he has pattern of developing urinary tract infections or other systemic infections after a period of decreased oral intake. Because of this history she was concerned with his appetite decreased and he developed nausea along with loose stools that he might be becoming ill again and she brought him to the ER and subsequently he was admitted to the hospitalist service. During his admission was noticed that his kidney function which had initially improved started getting worse. [facility] was consulted to assist with evaluation and management of acute on chronic kidney disease. At the time my evaluation the patient denies chest pain, shortness of breath, nausea, or vomiting. He does have some loose stools. Past Med Surg Social Fam HX - Past Medical History Medical history: cancer, diabetes, hyperlipidemia, hypertension, other Additional medical history: prostate cancer Psychiatric history: depression - Past Surgical History Surgical History: cholecystectomy Additional surgical history: partial left knee replacement, bilateral nephro tube, TURP, a port R chest - Social History Smoking Status: Never smoker Smokeless Tobacco Status: No Alcohol use: none Drug use: none - Family History Father Family Member Ethnicity: Non- Living Status: Hx Family Cardiac Disorders: No Hx Family Respiratory Disorders: No Hx Family Cancer: Yes (Colon) Hx Family GI Disorders: No Hx Family Endocrine Disorder: Yes (Diabetes) Hx Family Neuromuscular Disorders: No Hx Family Neurologic Disorders: No Hx Family HEENT Disorders: No Hx Family Autoimmune Disorders: No Brother Family Member Ethnicity: Non- Living Status: Hx Family Cancer: Yes (Colon and lung) Mother Family Member Ethnicity: Non- Living Status: Sister Family Member Ethnicity: Non- Living Status: Still Living Hx Family Endocrine Disorder: Yes (DM) Medications and Allergies Sertraline [Zoloft] 25 mg PO DAILY 04/13/16 [History] Insulin ASPART [Novolog Flexpen] 10 - 15 unit SQ TIDWM 11/17/16 [History] Diltiazem CD (24hr) [Cardizem CD] 240 mg PO DAILY 12/15/16 [History] Gabapentin [Neurontin] 100 mg PO HS 10/16/17 [History] Losartan [Cozaar] 25 mg PO BID 10/16/17 [History] Oxycodone HCl 15 mg PO Q8H PRN 12/27/17 [History] Insulin DETEMIR [Levemir] 30 unit SQ HS 02/28/18 [History] Lubiprostone [Amitiza] 24 mcg PO BID PRN 05/20/18 [History] Oxycodone HCl [Oxycontin] 10 mg PO Q12H 05/20/18 [History] predniSONE [PredniSONE] 5 mg PO BIDWM 05/20/18 [History] Ondansetron HCl [Zofran] 4 mg PO TID PRN #30 tablet 06/12/18 [Rx] OLANZapine [Zyprexa] 5 mg PO HS 08/14/18 [History] Allergy/AdvReac Type Severity Reaction Status Date / Time No Known Allergies Allergy Verified 10/09/18 12:16 Review of Systems All Systems: reviewed and no additional remarkable complaints except as stated (As documented in the history of present illness) Exam - Vital Signs Vital signs: Initial Vital Signs Temp Pulse Resp BP Pulse Ox 98.1 F 118 18 122/82 94 10/09/18 12:13 10/09/18 12:13 10/09/18 12:13 10/09/18 12:13 10/09/18 12:13 Vital Signs - Last 8 Hours Temp Pulse Resp BP Pulse Ox 10/15/18 11:59 98.0 F 96 18 106/65 90 10/15/18 07:53 98.5 F 101 16 122/72 94 Intake and Output 10/14/18 10/15/18 10/15/18 23:59 07:59 15:59 Intake Total 340 / 1020 450 / 450 Output Total 450 / 1450 900 / 900 Balance -110 / -430 450 / -450 -900 / -450 Intake: IV Fluids 100 / 300 100 / 100 Zosyn 3.375 GM In 0.9 % Sodium 100 / 300 100 / 100 Chloride (Mini-Bag +) 100 ML @ 25 mls/hr IVPB Q8H [facility] Rx#: [id number] Oral 240 / 720 Free Water 350 / 350 Output: Left Nephrostomy 350 / 350 Right Nephrostomy 550 / 550 Wound Drainage 450 / 1450 Left 175 / 575 Right 275 / 875 Other: Meal Dinner Percent of Meal Consumed 100% Stool Size Large Stool Consistency soft Stool Color Green Bright Red Blood Weight 128.3 kg Blood Glucose* 231 181 267 Patient Weight 10/15/18 23:59 Weight 128.3 kg - General Appearance General appearance: well-developed, well-nourished EENT: ATNC Neck: supple Respiratory: clear Cardiology: no edema, regular rate Additional Comments: Tachycardic Gastrointestinal: no tenderness, obese Integumentary: warm and dry Neurologic: alert and oriented x3 Musculoskeletal: no cyanosis Psychiatric: mood/affect appropriate Results - Lab Results 10/15/18 05:06 10/15/18 05:06 Most recent lab results 10/15/18 05:06 Calcium 9.8 Consult Discharge Plan - Plan Additional Instructions: Home Health has been set up through [facility]. They will contact you with a date and time to complete admission. If you need to contact them please call #[phone] or #[phone]. Referrals: Saleem Ramirez DO [Primary Care Provider] - (Appt has been requested. )
[2018-10-15] MEDS ORDERED: 0.9 % Sodium Chloride 1,000 ML IVC SCH (12:30)
[2018-10-15] MEDS ORDERED: 0.9 % Sodium Chloride 1,000 ML ONE (12:35)
--- NOTE | 2018-10-15 13:03 | Internal Med Progress Note ---
Hospitalist Progress Note - Encounter Date of Encounter: 10/15/18 Time of Encounter: 13:01 - Subjective Interval History: Patient was seen and examined at bedside currently denies any pain or discomfort does not appear to be in respiratory distress. Discussed treatment plan with the patient he will be evaluated by nephrology due to rising creatinine ve rbalizes understanding. Denies any loose stools or bloody stools overnight we will continue to monitor hemoglobin stable at this time - Exam Vitals: Temp Pulse Resp BP Pulse Ox 98.0 F 96 18 106/65 90 10/15/18 11:59 10/15/18 11:59 10/15/18 11:59 10/15/18 11:59 10/15/18 11:59 Exam: Skin: Free of rash and discoloration. Eyes: Sclera is white. There is no discharge from eyes. ENMT: Oral/pharyngeal mucosa is normal in appearance. There is no discharge from nose or ears. Respiratory: Normal breath sounds with no crackles and wheezes bilaterally. CV: Heart is regular with no gallop or murmur. GI: Abdomen is distended and soft with no palpable mass or visceromegaly. : There is no tenderness in patient's flanks bilaterally. Neuro exam: He has good strength in upper and lower extremities. He has normal eye movements. Psychiatric: He has normal affect. His thought process is appropriate to the situation. - Assessment and Plan (1) Dehydration Current Visit: Yes Status: Acute Assessment and Plan: Patient has been experiencing nausea vomiting and diarrhea -has received his fifth cycle of Taxotere. Which could be contributing to his symptoms. However it appears he also has UTI-urine and blood cultures have been sent. GI panel is pending-( 10/10 Patient did receive IV fluids -noted improvement in renal function continue IV fluids today He has a poor oral intake Had one episode of loose stool today GI panel positive for C. difficile initiated on oral vancomycin No nausea and vomiting today Continue with antibiotics as needed Monitor electrolytes 10/12 Renal Function stable at this time Tolerating oral intake No loose stools today GI panel positive for C. difficile initiated on oral vancomycin No nausea and vomiting today Continue with antibiotics Monitor electrolytes 10/13 Seems to be tolerating oral intake this time Loose stools today No nausea vomiting Monitor electrolytes 10/14 Seems to be tolerating oral intake this time No Loose stools today No nausea vomiting Monitor electrolytes 10/15 We will continue with IV fluids per nephrology's recommendations No loose stools today No nausea vomiting Monitor electrolytes (2) UTI (urinary tract infection) Current Visit: Yes Status: Acute Assessment and Plan: Patient does have history of nephrostomy tube and repeated UTI-with previous cultures growing Emmanuelle tropicallis E coli -urine culture has been sent and is pending at this time. Continue with empiric Rocephin.- he maybe colonized - however due to immunocompromise state we will empirically treat 10/11 Urine culture grew Citrobacter freundili and gram-positive cocci. Sensitive to Rocephin which we will continue We will consult infectious disease due to patient's renal function and multiple organisms, immunocompromised 10/12 Urine culture grew Citrobacter freundili and Enterococcus faecalis-infectious disease consulted recommending Zosyn while inpatient and amoxicillin and levofloxacin for 14 days upon discharge Infectious disease consulted and appreciate recommendations 10/13 Urine culture grew Citrobacter freundili and Enterococcus faecalis-infectious disease consulted recommending Zosyn while inpatient and amoxicillin and levofloxacin for 14 days upon discharge 10/14 as above 10/15 Continue as above (3) Anemia Current Visit: No Status: Acute Assessment and Plan: Appears to be stable at this time continue with folate (4) Bony metastasis Current Visit: No Status: Acute Assessment and Plan: Patient does have history of prostate cancer and is receiving chemotherapy per oncology. 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 Will discuss with oncology 10/11 Patient will follow up with oncology in one month-he is to follow-up with [facility] neurology in November 20 as above 10/14 as above 10/15 Continue as above (5) DVT prophylaxis Current Visit: No Status: Acute Assessment and Plan: Heparin subcutaneous (6) SIRS (systemic inflammatory response syndrome) Current Visit: No Status: Acute (7) Chronic kidney disease, stage III (moderate) Current Visit: No Status: Chronic Assessment and Plan: History CK D-yesterday lab work appears to be around baseline currently waiting for morning labs We will monitor intake and output Avoid nephrotoxins 10/11 History CKG stage III was given IV fluids overnight appears creatinine around baseline Continue to monitor avoid nephrotoxins Renal dose antibiotics 10/12 appears stable at this time avoid nephrotoxins- renal dose ATB 10/13 appears stable at this time avoid nephrotoxins- renal dose ATB 10/14 He did have an increase in creatinine today 2.33 we will give a dose of IV Lasix Renal dose antibiotics Avoid nephrotoxins Monitor intake and output 10/15 Patient was evaluated by nephrology recommending IV fluids at this time which we will continue Renal dose antibiotics and avoid nephrotoxins (8) Diabetes mellitus Current Visit: No Status: Chronic Assessment and Plan: Accu-Cheks before meals at bedtime with sliding scale insulin as well as basal appetite slowly improving - diabetic diet (9) Neutropenia Current Visit: Yes Status: Acute Assessment and Plan: most likely secondary to chemotherapy Had Neulasta 10/03 I did speak with Dr. Galicia concerning neutropenia patient was given 1 dose of Neupogen ANC 1281 this morning we will stop Neupogen and patient will follow-up with oncology as outpatient 10/15 Appears to be stable today we will continue to monitor (10) Sepsis Current Visit: No Status: Acute Assessment and Plan: Present with 2 sirs criteria (tachycardia and leukopenia)-secondary to UTI and C. difficile colitis Patient is afebrile 10/13 No tachycardia and fever however continues to leukopenic secondary to UTI and C. difficile colitis 10/14 No tachycardia or fever leukopenia improving continue with current anabiotic's 10/15 Appears to be improving no tachycardia no fever leukopenia improving continue with current antibiotics (11) APOORVA (acute kidney injury) Current Visit: Yes Status: Acute Assessment and Plan: Evaluated by nephrology suspect due to fluid loss we will give IV fluids and monitor Avoid nephrotoxins Renal dose antibiotics - Time Spent with Patient Total time spent is greater than 50% in coordination of care (as documented) at patient's floor/unit and/or counseling patient: Internal Medicine: Result - Labs CBC & Chem 7: 10/15/18 05:06 10/15/18 05:06 Labs: Short CBC 10/14/18 10/15/18 Range/Units 20:52 05:06 WBC 2.4 L (4.3-11.1) K/mcL Hgb 9.8 L 9.9 L (12.9-16.9) g/dL Hct 30.3 L 30.0 L (37.5-50.1) % Plt Count 197 (140-400) K/mcL Neutrophils # 1.4 L (1.6-8.9) K/mcL BMP 10/14/18 10/15/18 15:04 05:06 Sodium 136 137 Potassium 3.7 3.5 Chloride 105 102 Carbon Dioxide 26 24 BUN 23 25 H Creatinine 2.33 H 2.46 H Glucose 243 H 172 H Calcium 9.3 9.8 Consult Discharge Plan - Plan Additional Instructions: Home Health has been set up through [facility]. They will contact you with a date and time to complete admission. If you need to contact them please call # [phone] or #[phone]. Referrals: Saleem Ramirez DO [Primary Care Provider] - (Appt has been requested. 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 use Diabetes mellitus complication status: with kidney complications Diabetes mellitus complication detail: with chronic kidney disease Chronic kidney disease stage: stage 3 (moderate) Qualified Code(s): E11.22 - Type 2 diabetes mellitus with diabetic chronic kidney disease; N18.3 - Chronic kidney disease, stage 3 (moderate); Z79.4 - correction (current) use of 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
[2018-10-15] MEDS: *HR* Heparin 5,000 UNIT/ML VIAL SQ SCH (17:27)
[2018-10-15 20:15] LABS: Bilirubin,Urine Negative (Negative); Blood,Urine Large (Negative); Clarity,Urine Turbid (Clear); Color,Urine Red (Yellow); Glucose,Urine (UA) 250 mg/dL (Normal); Ketones,Urine Negative (Negative); Leukocyte Esterase,Urine Moderate (Negative); Nitrite,Urine Negative (Negative); Protein,Urine 100 mg/dL (Neg-Trace); Specific Gravity,Urine 1.023 (1.010-1.025); Urobilinogen,Urine Normal (Normal)
[2018-10-15] MEDS: Gabapentin 100 MG CAPSULE PO SCH (21:58)
[2018-10-15] MEDS: Insulin DETEMIR 100 UNIT/ML X5UNITS SQ SCH (21:58)
[2018-10-15] MEDS: OLANZapine 5 MG TAB.RAPDIS PO SCH (21:58)
[2018-10-16] MEDS: Piperacillin/Tazobactam 3.375 GM in 0.9 % Sodium Chloride Mini Bag 100 ML IVPB SCH ×2 (01:40→08:39)
[2018-10-16] MEDS: *HR* Heparin 5,000 UNIT/ML VIAL SQ SCH ×2 (04:26→16:43)
[2018-10-16 06:24] LABS: Immature Reticulocyte % 42.8 % (11.0-38.0); Retculocyte # 0.15 M/mcL (0.05-0.10); Reticulocyte % 4.9 % (1.6-2.8)
[2018-10-16 06:28] LABS: Hematocrit 28.9 % (37.5-50.1); Hemoglobin 9.3 g/dL (12.9-16.9); Lymphocytes # 0.8 K/mcL (0.6-4.6); Mean Corpuscular HGB Conc 32.2 g/dL (31.6-35.5); Mean Corpuscular Hemoglobin 30.5 pg (28.0-33.3); Mean Corpuscular Volume 94.8 fL (83.0-100.0); Mean Platelet Volume 9.6 fL (9.4-12.4); Monocytes # 0.7 K/mcL (0.0-1.3); Nucleated Red Blood Cells 3.4 /100 WBC (0); Platelet Count 181 K/mcL (140-400); Red Blood Count 3.05 M/mcL (4.19-5.50); Red Cell Distribution Width 14.8 % (11.5-14.5); White Blood Count 3.5 K/mcL (4.3-11.1)
[2018-10-16 06:44] LABS: % Iron Saturation 20 % (20-55); Iron 53 mcg/dL (65-175); Lactate Dehydrogenase 209 Units/L (140-271); Transferrin 188 mg/dL (203-362)
[2018-10-16 06:58] LABS: Platelet Estimate Normal (Normal); Polychromasia 1+ (Not Present); Reactive Lymphocytes Present (Not Present)
[2018-10-16 06:59] LABS: Anisocytosis 1+ (Not Present)
[2018-10-16 07:02] LABS: Ferritin 274 ng/mL (20-250)
[2018-10-16 07:07] LABS: Folate 15.6 ng/mL (3.0-16.0)
[2018-10-16] MEDS: Vancomycin Oral Soln 125 MG/2.5 ML UDC PO SCH ×4 (08:26→23:50)
[2018-10-16] MEDS: Ondansetron ODT 4 MG TAB.RAPDIS PO SCH ×3 (08:27→16:55)
[2018-10-16] MEDS: Lactobacillus 1 EACH CAP.SPRINK PO SCH ×2 (08:27→23:49)
[2018-10-16] MEDS: Diltiazem CD (24hr) 240 MG CAPSULE PO SCH (08:27)
[2018-10-16] MEDS: Insulin LISPRO 300 UNITS/3 ML VIAL SQ SCH ×4 (08:38→22:53)
[2018-10-16] MEDS: *HR* OxyCODONE ER (12 HR) 10 MG TABLET PO SCH ×2 (09:40→23:49)
[2018-10-16 10:56] LABS: Prostate Specific Antigen 15.87 ng/mL (Less than 4.00)
[2018-10-16 11:35] LABS: Calcium 9.5 mg/dL (8.6-10.3); Potassium 3.4 mEq/L (3.5-5.1)
[2018-10-16] MEDS ORDERED: levoFLOXacin 750 MG TABLET PO SCH (12:30)
[2018-10-16] MEDS ORDERED: 0.9 % Sodium Chloride 1,000 ML IVC SCH (12:30)
--- NOTE | 2018-10-16 12:32 | Nephrology Progress Note ---
Date of Encounter: 10/16/18 Time of Encounter: 12:31 - Assessment and Plan (1) Acute kidney injury superimposed on chronic kidney disease Current Visit: No Status: Acute The patient has a history of chronic kidney disease that is followed by Dr. Kelly outpatient basis. He currently has mild acute kidney injury superposed on chronic kidney disease. Clinically I think it is likely this is secondary to volume depletion. I recommend continuing additional fluids and will give an additional liter of saline as his renal function is at a plateau. I recommend avoiding unnecessary nephrotoxic agents. I recommend adjusting medications for renal function. (2) C. difficile colitis Current Visit: Yes Status: Acute (3) Generalized weakness Current Visit: No Status: Acute (4) History of renal stent Current Visit: No Status: Acute (5) Diabetes mellitus Current Visit: No Status: Chronic Qualifiers: Qualified Code(s): E11.22 - Type 2 diabetes mellitus with diabetic chronic kidney disease; N18.3 - Chronic kidney disease, stage 3 (moderate); Z79.4 - senior living (current) use of insulin (6) GERD (gastroesophageal reflux disease) Current Visit: No Status: Chronic Qualifiers: Qualified Code(s): K21.9 - Gastro-esophageal reflux disease without esophagitis (7) Hypertension Current Visit: No Status: Chronic Qualifiers: Qualified Code(s): I10 - Essential (primary) hypertension (8) Prostate cancer Current Visit: No Status: Chronic Subjective Principal diagnosis: ester/ckd Interval history: Patient seen. He has no new complaint. He feels better. His review of system otherwise appears to be negative or stable. Objective - Vital Signs Vital signs: Vital Signs Temp Pulse Resp BP Pulse Ox 10/16/18 12:08 97.9 F 87 16 118/76 93 10/16/18 07:15 98.4 F 92 16 152/80 96 10/16/18 03:09 98.2 F 97 16 138/78 94 10/15/18 23:05 98.2 F 93 15 133/76 94 10/15/18 19:37 97.9 F 95 16 113/73 10/15/18 16:35 98.4 F 90 16 146/74 92 Intake and Output 10/15/18 10/16/18 10/16/18 23:59 07:59 15:59 Intake Total 2550 / 3340 100 / 580 480 / 580 Output Total 400 / 1300 675 / 1125 450 / 1125 Balance 2150 / 2040 -575 / -545 30 / -545 Intake: IV Fluids 1100 / 1300 100 / 100 0.9 % Sodium Chloride 1,000 ML 1000 / 1000 @ 100 mls/hr IVC .Q10H [facility] Rx#: [id number] Zosyn 3.375 GM In 0.9 % Sodium 100 / 300 100 / 100 Chloride (Mini-Bag +) 100 ML @ 25 mls/hr IVPB Q8H [facility] Rx#: [id number] Oral 1450 / 1690 480 / 480 Output: Wound Drainage 400 / 400 675 / 1125 450 / 1125 Left 150 / 150 400 / 550 150 / 550 Right 250 / 250 275 / 575 300 / 575 Other: Meal Breakfast Percent of Meal Consumed 100% # Bowel Movements 0 Weight 129 kg Blood Glucose* 334 186 276 Patient Weight 10/16/18 23:59 Weight 129 kg - General Appearance General appearance: Present: well-developed, well-nourished EENT: Present: ATNC Neck: Present: supple Cardiology: Present: regular rate Gastrointestinal: Present: obese Neurologic: Present: alert and oriented x3 Psychiatric: Present: mood/affect appropriate - Lab 10/16/18 05:53 10/16/18 10:44 Most recent lab results 10/16/18 10:44 Calcium 9.5 Consult Discharge Plan - Plan Additional Instructions: Home Health has been set up through [facility]. They will contact you with a date and time to complete admission. If you need to contact them please call #[phone] or #[phone]. Referrals: Unique Ayala MD [Partnered Physician] - 11/15/18 2:20 pm Saleem Ramirez DO [Primary Care Provider] - 10/19/18 3:30 pm () Dominick Ibarra MD [Partnered Physician] - 11/15/18 1:15 pm
--- NOTE | 2018-10-16 12:52 | Internal Med Progress Note ---
Hospitalist Progress Note - Encounter Date of Encounter: 10/16/18 Time of Encounter: 12:21 - Subjective Interval History: Patient was seen and examined at bedside currently he is eating without any signs of distress. We discussed treatment plan which includes transition to oral antibiotics and to monitor renal function closely. Was evaluated by nephrology early this morning recommending IV fluids which we will continue patient verbalizes understanding - Exam Vitals: Temp Pulse Resp BP Pulse Ox 97.9 F 87 16 118/76 93 10/16/18 12:10/16/18 12:10/16/18 12:10/16/18 12:10/16/18 12:08 Exam: Skin: Free of rash and discoloration. Eyes: Sclera is white. There is no discharge from eyes. ENMT: Oral/pharyngeal mucosa is normal in appearance. There is no discharge from nose or ears. Respiratory: Normal breath sounds with no crackles and wheezes bilaterally. CV: Heart is regular with no gallop or murmur. GI: Abdomen is distended and soft with no palpable mass or visceromegaly. : There is no tenderness in patient's flanks bilaterally. Neuro exam: He has good strength in upper and lower extremities. He has normal eye movements. Psychiatric: He has normal affect. His thought process is appropriate to the situation. - Assessment and Plan (1) Dehydration Current Visit: Yes Status: Acute Assessment and Plan: Patient has been experiencing nausea vomiting and diarrhea -has received his fifth cycle of Taxotere. Which could be contributing to his symptoms. However it appears he also has UTI-urine and blood cultures have been sent. GI panel is pending-( 10/10 Patient did receive IV fluids -noted improvement in renal function continue IV fluids today He has a poor oral intake Had one episode of loose stool today GI panel positive for C. difficile initiated on oral vancomycin No nausea and vomiting today Continue with antibiotics as needed Monitor electrolytes 10/12 Renal Function stable at this time Tolerating oral intake No loose stools today GI panel positive for C. difficile initiated on oral vancomycin No nausea and vomiting today Continue with antibiotics Monitor electrolytes 10/13 Seems to be tolerating oral intake this time Loose stools today No nausea vomiting Monitor electrolytes 10/14 Seems to be tolerating oral intake this time No Loose stools today No nausea vomiting Monitor electrolytes 10/15 We will continue with IV fluids per nephrology's recommendations No loose stools today No nausea vomiting Monitor electrolytes 10/16 No loose stools today continue IV fluids per nephrology's recommendation No nausea vomiting Monitor electrolytes Good oral intake (2) UTI (urinary tract infection) Current Visit: Yes Status: Acute Assessment and Plan: Patient does have history of nephrostomy tube and repeated UTI-with previous cultures growing Emmanuelle tropicallis E coli -urine culture has been sent and is pending at this time. Continue with empiric Rocephin.- he maybe colonized - however due to immunocompromise state we will empirically treat 10/11 Urine culture grew Citrobacter freundili and gram-positive cocci. Sensitive to Rocephin which we will continue We will consult infectious disease due to patient's renal function and multiple organisms, immunocompromised 10/12 Urine culture grew Citrobacter freundili and Enterococcus faecalis-infectious disease consulted recommending Zosyn while inpatient and amoxicillin and levofloxacin for 14 days upon discharge Infectious disease consulted and appreciate recommendations 10/13 Urine culture grew Citrobacter freundili and Enterococcus faecalis-infectious disease consulted recommending Zosyn while inpatient and amoxicillin and levofloxacin for 14 days upon discharge 10/14 as above 10/15 Continue as above 10/16 We will transition to oral antibiotics to preserve kidney function amoxicillin and let ofloxacin for 14 days (3) Anemia Current Visit: No Status: Acute Assessment and Plan: Appears to be stable at this time continue with folate (4) Bony metastasis Current Visit: No Status: Acute Assessment and Plan: Patient does have history of prostate cancer and is receiving chemotherapy per oncology. 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 Will discuss with oncology 10/11 Patient will follow up with oncology in one month-he is to follow-up with [facility] neurology in November 20 as above 10/14 as above 10/15 Continue as above 10/16 Will follow up with [facility] neurology in November (5) DVT prophylaxis Current Visit: No Status: Acute Assessment and Plan: Heparin subcutaneous (6) SIRS (systemic inflammatory response syndrome) Current Visit: No Status: Acute Assessment and Plan: Presented with leukopenia and tachycardia-concerns for infectious process patient is immunocompromised history of UTI however he does have nephrostomy tubes-which could be chronic findings suggestive of colonization. Urine culture has been sent and is pending blood cultures are negative this time-continue with Rocephin which was sensitive to previous cultures also concern for gastroenteritis GI panel is pending at this time 10/11 White count this a.m. 1.6 patient is been afebrile continues with tachycardia GI panel revealed C. difficile-initiated on oral vancomycin Urine culture Citrobacter freundili and gram-positive cocci. Continue Rocephin Infectious disease consulted for multiple organisms immunocompromised patient with CKD (7) Chronic kidney disease, stage III (moderate) Current Visit: No Status: Chronic Assessment and Plan: History CK D-yesterday lab work appears to be around baseline currently waiting for morning labs We will monitor intake and output Avoid nephrotoxins 10/11 History CKG stage III was given IV fluids overnight appears creatinine around baseline Continue to monitor avoid nephrotoxins Renal dose antibiotics 10/12 appears stable at this time avoid nephrotoxins- renal dose ATB 10/13 appears stable at this time avoid nephrotoxins- renal dose ATB 10/14 He did have an increase in creatinine today 2.33 we will give a dose of IV Lasix Renal dose antibiotics Avoid nephrotoxins Monitor intake and output 10/15 Patient was evaluated by nephrology recommending IV fluids at this time which we will continue Renal dose antibiotics and avoid nephrotoxins 10/16 Renal ultrasound within normal limits Nephrology recommending continuation of IV fluids We will transition to oral antibiotics for renal protection (8) Diabetes mellitus Current Visit: No Status: Chronic Assessment and Plan: Accu-Cheks before meals at bedtime with sliding scale insulin as well as basal - diabetic diet (9) Neutropenia Current Visit: Yes Status: Acute Assessment and Plan: most likely secondary to chemotherapy Had Neulasta 10/03 I did speak with Dr. Galicia concerning neutropenia patient was given 1 dose of Neupogen ANC 1281 this morning we will stop Neupogen and patient will follow-up with oncology as outpatient 10/15 Appears to be stable today we will continue to monitor 10/16 His to be improving we will have patient follow-up with oncology as outpatient (10) Sepsis Current Visit: No Status: Acute Assessment and Plan: Present with 2 sirs criteria (tachycardia and leukopenia)-secondary to UTI and C. difficile colitis Patient is afebrile 10/13 No tachycardia and fever however continues to leukopenic secondary to UTI and C. difficile colitis 10/14 No tachycardia or fever leukopenia improving continue with current anabiotic's 10/15 Appears to be improving no tachycardia no fever leukopenia improving continue with current antibiotics 10/16 No tachycardia no fever leukopenia improving continue with current antibiotics (11) APOORVA (acute kidney injury) Current Visit: Yes Status: Acute Assessment and Plan: Evaluated by nephrology suspect due to fluid loss we will give IV fluids and monitor Avoid nephrotoxins Renal dose antibiotics-we will switch to oral antibiotics - Time Spent with Patient Total time spent is greater than 50% in coordination of care (as documented) at patient's floor/unit and/or counseling patient: Internal Medicine: Result - Labs CBC & Chem 7: 10/16/18 05:53 10/16/18 10:44 Labs: Short CBC 10/16/18 Range/Units 05:53 WBC 3.5 L (4.3-11.1) K/mcL Hgb 9.3 L (12.9-16.9) g/dL Hct 28.9 L (37.5-50.1) % Plt Count 181 (140-400) K/mcL Neutrophils # 2.0 (1.6-8.9) K/mcL BMP 10/16/18 10:44 Sodium 136 Potassium 3.4 L Chloride 102 Carbon Dioxide 26 BUN 22 Creatinine 2.43 H Glucose 255 H Calcium 9.5 Urine 10/15/18 Range/Units 19:40 Urine Color Red A (Yellow) Urine Clarity Turbid A (Clear) Urine pH 6.0 (5.0-8.0) pH Units Ur Specific [place] 1.023 (1.010-1.025) Urine Protein 100 H (Neg-Trace) mg/dL Urine Glucose (UA) 250 H (Normal) mg/dL - Impressions Impressions Retroperitoneum Ultrasound 10/16/18 10:00 IMPRESSION: Unremarkable ultrasound of the kidneys. D/ / Yoseph Hamlin MD / Yoseph Hamlin MD Interpreting Provider: Yoseph Hamlin MD Consult Discharge Plan - Plan Additional Instructions: Home Health has been set up through [facility]. They will contact you with a date and time to complete admission. If you need to contact them please call #[phone] or #[phone]. Referrals: Unique Ayala MD [Partnered Physician] - 11/15/18 2:20 pm Saleem Ramirez DO [Primary Care Provider] - 10/19/18 3:30 pm () Dominick Ibarra MD [Partnered Physician] - 11/15/18 1:15 pm (2) UTI (urinary tract infection) Qualifiers: Urinary tract infection type: acute cystitis Hematuria presence: with hematuria Qualified Code(s): N30.01 - Acute cystitis with hematuria (3) Anemia Qualifiers: Anemia type: due to chronic kidney disease Chronic kidney disease stage: unspecified stage Qualified Code(s): N18.9 - Chronic kidney disease, unspecified; D63.1 - Anemia in chronic kidney disease (8) Diabetes mellitus Qualifiers: Diabetes mellitus type: type 2 Diabetes mellitus senior care insulin use: with terminal clerk use Diabetes mellitus complication status: with kidney complications Diabetes mellitus complication detail: with chronic kidney disease Chronic kidney disease stage: stage 3 (moderate) Qualified Code(s): E11.22 - Type 2 diabetes mellitus with diabetic chronic kidney disease; N18.3 - Chronic kidney disease, stage 3 (moderate); 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
--- NOTE | 2018-10-16 16:26 | Infectious Disease Progress No ---
ID Progress Note Date of Encounter: 10/16/18 Time of Encounter: 16:23 - Subjective Subjective: Patient seen and examined. Clinically doing well. No headache no chest pain or shortness of breath no cough no nausea no vomiting. Vital signs noted Labs reviewed Cultures noted - Objective CBC & Chem 7: 10/16/18 05:53 10/16/18 10:44 - Exam Vitals: Temp Pulse Resp BP Pulse Ox 98.1 F 89 16 138/78 94 10/16/18 15:48 10/16/18 15:48 10/16/18 15:48 10/16/18 15:48 10/16/18 15:48 Exam: GENERAL: Comfortable. Laying in bed NAD HEENT: SANTOSH, EOMI LUNGS: Good air sounds bilaterally, no wheezing or rhonchi CV: RRR, S1 S2 port right chest intact ABDOMEN: Soft, nontender, + bowel sounds EXT: Adequate perfusion. No edema NEURO: A&OX3; no focal deficit - Assessment and Plan (1) Sepsis Current Visit: No Status: Acute had 2 SIRS criteria (tachycardia and leukopenia) secondary to UTI and C diff colitis Qualifiers: Sepsis type: sepsis due to unspecified organism Qualified Code(s): A41.9 - Sepsis, unspecified organism SNOMED Code(s): 72529484 (2) C. difficile colitis Current Visit: Yes Status: Acute first episode diarrhea improved SNOMED Code(s): 880854290 (3) Complicated UTI (urinary tract infection) Current Visit: No Status: Acute causative organism Citrobacter and ampicillin sensitive Enterococcus faecalis started on rocephin on admission SNOMED Code(s): 26951552 (4) Prostate CA Current Visit: No Status: Chronic Metastatic prostate cancer status post prior radiation therapy to prostate, nephrostomy tubes, vertebral metastatic disease, status post surgery, palliative radiation therapy to the back T5-T8 on Taxotere last dose Tuesday 10/03 SNOMED Code(s): 001524785 (5) Diabetes mellitus Current Visit: No Status: Chronic Qualifiers: Diabetes mellitus type: type 2 Diabetes mellitus buttermaker insulin use: with buttermaker use Diabetes mellitus complication status: with kidney complications Diabetes mellitus complication detail: with chronic kidney disease Chronic kidney disease stage: stage 3 (moderate) Qualified Code(s): E11.22 - Type 2 diabetes mellitus with diabetic chronic kidney disease; N18.3 - Chronic kidney disease, stage 3 (moderate); Z79.4 - [facility] (current) use of insulin SNOMED Code(s): 49440002 (6) Ureteral obstruction Current Visit: No Status: Chronic s/p bilateral nephrostomy tubes SNOMED Code(s): 57738956 (7) Bony metastasis Current Visit: No Status: Acute SNOMED Code(s): 49300278 (8) Neutropenia Current Visit: Yes Status: Acute likely secondary to chemotherapy s/p neupogen yesterday, hopefully WBC will start improving soon Qualifiers: Neutropenia type: secondary to cancer chemotherapy Qualified Code(s): D70.1 - Agranulocytosis secondary to cancer chemotherapy; T45.1X5A - Adverse effect of antineoplastic and immunosuppressive drugs, initial encounter SNOMED Code(s): 435180277 - Recommendations Recommendations: Continue Zosyn for now On discharge switched the patient to oral level floxacillin 750 mg every 48 hours and amoxicillin 500 mg 3 times a day Duration of treatment through 10/23/2018 Continue oral vancomycin 125 mg every 6 hours through 10/25/2018 Monitor kidney function closely WBC improving Consult Discharge Plan - Plan Additional Instructions: Home Health has been set up through [place]. They will contact you with a date and time to complete admission. If you need to contact them please call #[phone] or #[phone]. Referrals: Unique Ayala MD [Partnered Physician] - 11/15/18 2:20 pm Saleem Ramirez DO [Primary Care Provider] - 10/19/18 3:30 pm () Dominick Ibarra MD [Partnered Physician] - 11/15/18 1:15 pm
[2018-10-16] MEDS: Amoxicillin 500 MG CAPSULE PO SCH ×2 (16:55→23:49)
[2018-10-16] MEDS: *HR* Promethazine 25 MG/ML VIAL IVP PRN (21:17)
[2018-10-16] MEDS: Insulin DETEMIR 100 UNIT/ML X5UNITS SQ SCH (22:53)
[2018-10-16] MEDS: OLANZapine 5 MG TAB.RAPDIS PO SCH (23:03)
[2018-10-16] MEDS ORDERED: Ondansetron ODT 4 MG TAB.RAPDIS SL ONE (23:05)
[2018-10-16] MEDS: Gabapentin 100 MG CAPSULE PO SCH (23:49)
[2018-10-17] MEDS: *HR* Heparin 5,000 UNIT/ML VIAL SQ SCH (04:38)
[2018-10-17 06:07] LABS: Hemoglobin 8.9 g/dL (12.9-16.9); Mean Corpuscular HGB Conc 31.8 g/dL (31.6-35.5); Mean Corpuscular Hemoglobin 30.1 pg (28.0-33.3); Mean Corpuscular Volume 94.6 fL (83.0-100.0); Mean Platelet Volume 9.6 fL (9.4-12.4); Nucleated Red Blood Cells 1.9 /100 WBC (0); Platelet Count 190 K/mcL (140-400); Red Blood Count 2.96 M/mcL (4.19-5.50); Red Cell Distribution Width 14.9 % (11.5-14.5); White Blood Count 5.2 K/mcL (4.3-11.1)
[2018-10-17 06:26] LABS: Calcium 9.3 mg/dL (8.6-10.3); Potassium 3.7 mEq/L (3.5-5.1)
[2018-10-17 06:37] LABS: Eosinophils # 0.2 K/mcL (0.0-0.6); Lymphocytes # 1.3 K/mcL (0.6-4.6); Monocytes # 0.6 K/mcL (0.0-1.3); Neutrophils # 2.3 K/mcL (1.6-8.9)
[2018-10-17 06:48] VITALS: BP 138/77
[2018-10-17] MEDS: Vancomycin Oral Soln 125 MG/2.5 ML UDC PO SCH ×3 (08:14→16:37)
[2018-10-17] MEDS: Lactobacillus 1 EACH CAP.SPRINK PO SCH (08:15)
[2018-10-17] MEDS: Diltiazem CD (24hr) 240 MG CAPSULE PO SCH (08:15)
[2018-10-17] MEDS: Amoxicillin 500 MG CAPSULE PO SCH ×2 (08:15→14:48)
[2018-10-17] MEDS: Ondansetron ODT 4 MG TAB.RAPDIS PO SCH ×3 (08:16→16:36)
[2018-10-17] MEDS: Insulin LISPRO 300 UNITS/3 ML VIAL SQ SCH ×3 (08:19→16:37)
[2018-10-17] MEDS: *HR* OxyCODONE ER (12 HR) 10 MG TABLET PO SCH (09:55)
--- NOTE | 2018-10-17 10:52 | Discharge Summary ---
- NOTES TO OUTPATIENT PROVIDER Notes to Outpatient Provider: f/u with PCP in one week. f/u with Heme Onc in 1- 2 weks. Orders not resulted at time of discharge: Pending orders 10/16/18 05:53 [place] Lambda Qnt [facility] w Ratio AM 0400 Date of Encounter: 10/17/18 Time of Encounter: 10:52 - Discharge Diagnosis (1) Sepsis Priority: Primary Status: Acute Qualifiers: Sepsis type: sepsis due to unspecified organism Sepsis acute organ dysfunction status: unspecified Qualified Code(s): A41.9 - Sepsis, unspecified organism (2) UTI (urinary tract infection) Priority: Primary Status: Acute Qualifiers: Urinary tract infection type: acute cystitis Hematuria presence: with hematuria Qualified Code(s): N30.01 - Acute cystitis with hematuria (3) Neutropenia Priority: Primary Status: Acute Qualifiers: Neutropenia type: secondary to cancer chemotherapy Qualified Code(s): D70.1 - Agranulocytosis secondary to cancer chemotherapy; T45.1X5A - Adverse effect of antineoplastic and immunosuppressive drugs, initial encounter (4) C. difficile colitis Priority: Secondary Status: Acute (5) Dehydration Priority: Secondary Status: Acute (6) Anemia Priority: Secondary Status: Acute Qualifiers: Anemia type: due to chronic kidney disease Chronic kidney disease stage: unspecified stage Qualified Code(s): N18.9 - Chronic kidney disease, unspecified; D63.1 - Anemia in chronic kidney disease (7) APOORVA (acute kidney injury) Priority: Primary Status: Acute (8) Diabetes mellitus Priority: Secondary Status: Chronic Qualifiers: Diabetes mellitus type: type 2 Diabetes mellitus senior care insulin use: with extermination inspector use Diabetes mellitus complication status: with kidney complications Diabetes mellitus complication detail: with chronic kidney disease Chronic kidney disease stage: stage 3 (moderate) Qualified Code(s): E11.22 - Type 2 diabetes mellitus with diabetic chronic kidney disease; N18.3 - Chronic kidney disease, stage 3 (moderate); Z79.4 - senior living (current) use of insulin (9) DVT prophylaxis Priority: Secondary Status: Acute (10) Chronic kidney disease, stage III (moderate) Priority: Secondary Status: Chronic (11) Bony metastasis Priority: Secondary Status: Acute Hospital course: Mr. Rivera is a 68 year old male with diabetes, hypertension, chronic kidney disease stage 3 and metastatic prostate cancer diagnosed in January 2016 that already had lympho vascular and perineural invasion present at the time of diagnosis, who currently has bilateral nephrostomy tubes in place due to obstructive uropathy caused by the prostate cancer invasion. He has been receiving palliative radiation therapy and is currently on chemotherapy. He presented to the emergency room with generalized weakness, fatigue and malaise for 3 days. He was admitted in the hospital and placed him on forepart laster. He does have UTI with urine cx growing Citrobacter and enterococcus faecalis. He was started on empirical abx Rocpehin initially. Pt was evaluated by ID who suggested to switch to Levofloxacin and Augmentin till 10/23/17. He did have diarrhea and C. Diff came back as positive. So pt was started on PO vancomycin ID suggested total 2 weeks of PO Vancomycin. He also had neutropenia probably secondary to chemotherapy and sepsis. He did receive Neupogen here and now his ANC improved to 2300. So will d/c him home in stable condition today with PO abx Levolfoxacin and Augmentin till 10/23/17 and PO Vancomycin till 10/25/18. - Time Spent with Patient Total time spent providing and/or coordinating discharge services: - Discharge Medications Prescriptions: New Amoxicillin [Amoxil] 500 mg PO TID #18 capsule Lactobacillus [Culturelle] 1 each PO BID #20 cap.sprink Vancomycin Oral Soln [Firvanq] 125 mg PO QID #32 udc levoFLOXacin [Levaquin] 750 mg PO Q48H #3 tablet Continued Sertraline [Zoloft] 25 mg PO DAILY Insulin ASPART [Novolog Flexpen] 10 - 15 unit SQ TIDWM Diltiazem CD (24hr) [Cardizem CD] 240 mg PO DAILY Gabapentin [Neurontin] 100 mg PO HS Losartan [Cozaar] 25 mg PO BID Oxycodone HCl 15 mg PO Q8H PRN PRN Reason: Breakthrough Pain Insulin DETEMIR [Levemir] 30 unit SQ HS Lubiprostone [Amitiza] 24 mcg PO BID PRN PRN Reason: bowel issues Oxycodone HCl [Oxycontin] 10 mg PO Q12H predniSONE [PredniSONE] 5 mg PO BIDWM Ondansetron HCl [Zofran] 4 mg PO TID PRN #30 tablet PRN Reason: Nausea OLANZapine [Zyprexa] 5 mg PO HS Home Medications: Sertraline [Zoloft] 25 mg PO DAILY 04/13/16 [History] Insulin ASPART [Novolog Flexpen] 10 - 15 unit SQ TIDWM 11/17/16 [History] Diltiazem CD (24hr) [Cardizem CD] 240 mg PO DAILY 12/15/16 [History] Gabapentin [Neurontin] 100 mg PO HS 10/16/17 [History] Losartan [Cozaar] 25 mg PO BID 10/16/17 [History] Oxycodone HCl 15 mg PO Q8H PRN 12/27/17 [History] Insulin DETEMIR [Levemir] 30 unit SQ HS 02/28/18 [History] Lubiprostone [Amitiza] 24 mcg PO BID PRN 05/20/18 [History] Oxycodone HCl [Oxycontin] 10 mg PO Q12H 05/20/18 [History] predniSONE [PredniSONE] 5 mg PO BIDWM 05/20/18 [History] Ondansetron HCl [Zofran] 4 mg PO TID PRN #30 tablet 06/12/18 [Rx] OLANZapine [Zyprexa] 5 mg PO HS 08/14/18 [History] Amoxicillin [Amoxil] 500 mg PO TID #18 capsule 10/17/18 [Rx] Lactobacillus [Culturelle] 1 each PO BID #20 cap.sprink 10/17/18 [Rx] Vancomycin Oral Soln [Firvanq] 125 mg PO QID #32 udc 10/17/18 [Rx] levoFLOXacin [Levaquin] 750 mg PO Q48H #3 tablet 10/17/18 [Rx] Allergies/Adverse Reactions: Allergy/AdvReac Type Severity Reaction Status Date / Time No Known Allergies Allergy Verified 10/09/18 12:16 Date of admission: 10/11/18 14:47 Primary care physician: Saleem Ramirez DO Consults: 10/10/18 01:43 Consult to Physical Therapy [CONS] Routine Comment: Evaluate, develop and implement POC Reason for Consult: weakness Does patient have active BEDREST order?: No Is patient medically & hemodynamically stable?: Yes Patient assessed for mobility or mobilized this visit?: Yes 10/10/18 14:11 Consult to Oncology [CONS] Routine Consulting Provider: [facility] Reason for Consult: hx gastric cancer with metastases Time Notified: 14:11 Call Completed: Yes 10/11/18 13:06 Consult to Infectious Diseases [CONS] Routine Consulting Provider: Infectious Disease [place] Reason for Consult: Immunocompromised- CKD - Citrobacter freundii Gram positive cocci - in urine - C diff in stool Time Notified: 13:09 Call Completed: Yes 10/15/18 08:22 Consult to Nephrology [CONS] Routine Consulting Provider: [facility] Dianna/CATHRYN/SUHAS/JALEESA Reason for Consult: APOORVA Time Notified: 08:22 Call Completed: Yes - Constitutional Vitals: Temp Pulse Resp BP Pulse Ox 98.3 F 89 16 138/77 96 10/17/18 06:37 10/17/18 06:37 10/17/18 06:37 10/17/18 06:37 10/17/18 06:37 General appearance: Present: A&O X 3, no acute distress, answers questions appropriately Exam: Gen: Alert, awake, Oriented to time,place and person Chest: Diminished breath sounds B/L, No wheezing, No crackles, No rales Heart: S1S2+ RRR No murmurs Abd: Soft, NT, BS +, No organomegaly Ext: trace edema, pulses are palpable, No calf tenderness Neuro : No acute focal neuro deficits noticed Skin: No rash. - Patient Status Disposition: Home Health Service Condition: Good Overall status at discharge: patient is back to baseline - Discharge Instructions Follow Up With: Unique Ayala MD [Partnered Physician] - 11/15/18 2:20 pm Saleem Ramirez DO [Primary Care Provider] - 10/19/18 3:30 pm () Dominick Ibarra MD [Partnered Physician] - 11/15/18 1:15 pm Additional Instructions: Home Health has been set up through [facility]. They will contact you with a date and time to complete admission. If you need to contact them please call #[phone] or #[phone]. - Diet and Activity Activity: increase activity as tolerated Diet: low salt diet
--- NOTE | 2018-10-17 11:13 | Physician Discharge Referral ---
Home Health/Hosp Referral Info Transfer to: Home Health Provider in Charge Post Discharge: PCP - Diagnosis (1) Sepsis Status: Acute (2) UTI (urinary tract infection) Status: Acute (3) Neutropenia Status: Acute (4) C. 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 For more information, call the [place] Tobacco Quit Line at 7-757-LYMB-NOW. - Services Needed Following services are medically necessary services: Nursing, Physical Therapy, Occupational Therapy - Transfer Medications Prescriptions: Amoxicillin [Amoxil] 500 mg PO TID #18 capsule Lactobacillus [Culturelle] 1 each PO BID #20 cap.sprink Vancomycin Oral Soln [Firvanq] 125 mg PO QID #32 udc levoFLOXacin [Levaquin] 750 mg PO Q48H #3 tablet Home Medications: Sertraline [Zoloft] 25 mg PO DAILY 04/13/16 [History] Insulin ASPART [Novolog Flexpen] 10 - 15 unit SQ TIDWM 11/17/16 [History] Diltiazem CD (24hr) [Cardizem CD] 240 mg PO DAILY 12/15/16 [History] Gabapentin [Neurontin] 100 mg PO HS 10/16/17 [History] Losartan [Cozaar] 25 mg PO BID 10/16/17 [History] Oxycodone HCl 15 mg PO Q8H PRN 12/27/17 [History] Insulin DETEMIR [Levemir] 30 unit SQ HS 02/28/18 [History] Lubiprostone [Amitiza] 24 mcg PO BID PRN 05/20/18 [History] Oxycodone HCl [Oxycontin] 10 mg PO Q12H 05/20/18 [History] predniSONE [PredniSONE] 5 mg PO BIDWM 05/20/18 [History] Ondansetron HCl [Zofran] 4 mg PO TID PRN #30 tablet 06/12/18 [Rx] OLANZapine [Zyprexa] 5 mg PO HS 08/14/18 [History] Amoxicillin [Amoxil] 500 mg PO TID #18 capsule 10/17/18 [Rx] Lactobacillus [Culturelle] 1 each PO BID #20 cap.sprink 10/17/18 [Rx] Vancomycin Oral Soln [Firvanq] 125 mg PO QID #32 udc 10/17/18 [Rx] levoFLOXacin [Levaquin] 750 mg PO Q48H #3 tablet 10/17/18 [Rx] Allergies/Adverse Reactions: Allergy/AdvReac Type Severity Reaction Status Date / Time No Known Allergies Allergy Verified 10/09/18 12:16 Certification: Further, I certify that my clinical findings support that this patient is homebound (i.e. absences from home require considerable and taxing effort and are for medical reasons or orthodoxy services or infrequently or short duration when for other reasons) because: Homebound Reason: Patient requires assistance of a person or device to safely leave home Attestation: My signature below is to certify that this patient is under my care and that I, or nurse practitioner, or a physician's assistant unit forester working with me, has a [id number] encounter with this patient.
--- NOTE | 2018-10-17 12:09 | Nephrology Progress Note ---
Date of Encounter: 10/17/18 Time of Encounter: 12:07 - Assessment and Plan (1) Acute kidney injury superimposed on chronic kidney disease Current Visit: No Status: Acute The patient has a history of chronic kidney disease that is followed by Dr. Kelly outpatient basis. He currently has mild acute kidney injury superposed on chronic kidney disease. Renal function improved with intravenous hydration. I recommend avoiding unnecessary nephrotoxic agents. I recommend adjusting medications for renal function. The patient can follow-up with nephrology on an outpatient basis 4-8 weeks after discharge. I do recommend getting a renal function panel 1 week after discharge. This can be followed by his primary race board attendant. (2) C. difficile colitis Current Visit: Yes Status: Acute (3) Generalized weakness Current Visit: No Status: Acute (4) History of renal stent Current Visit: No Status: Acute (5) Diabetes mellitus Current Visit: No Status: Chronic Qualifiers: Diabetes mellitus type: type 2 Diabetes mellitus director long term care insulin use: with director long term care use Diabetes mellitus complication status: with kidney complications Diabetes mellitus complication detail: with chronic kidney disease Chronic kidney disease stage: stage 3 (moderate) Qualified Code(s): E11.22 - Type 2 diabetes mellitus with diabetic chronic kidney disease; N18.3 - Chronic kidney disease, stage 3 (moderate); Z79.4 - snf (current) use of insulin (6) GERD (gastroesophageal reflux disease) Current Visit: No Status: Chronic Qualifiers: Esophagitis presence: esophagitis presence not specified Qualified Code(s): K21.9 - Gastro-esophageal reflux disease without esophagitis (7) Hypertension Current Visit: No Status: Chronic Qualifiers: Hypertension type: essential hypertension Qualified Code(s): I10 - Essential (primary) hypertension (8) Prostate cancer Current Visit: No Status: Chronic Subjective Principal diagnosis: ester/ckd Interval history: Patient seen. He has no new complaint. He feels better. His review of system otherwise appears to be negative or stable. Objective - Vital Signs Vital signs: Vital Signs Temp Pulse Resp BP Pulse Ox 10/17/18 06:37 98.3 F 89 16 138/77 96 10/16/18 22:51 98.0 F 83 18 149/81 94 10/16/18 18:24 97.7 F 91 18 131/79 95 10/16/18 15:48 98.1 F 89 16 138/78 94 10/16/18 12:08 97.9 F 87 16 118/76 93 Intake and Output 10/16/18 10/17/18 10/17/18 23:59 07:59 15:59 Intake Total 1000 / 1120 120 / 1120 Output Total 1075 / 2200 Balance -1075 / -480 1000 / 1120 120 / 1120 Intake: IV Fluids 1000 / 1000 0.9 % Sodium Chloride 1,000 ML 1000 / 1000 @ 80 mls/hr IVC .[id number] [facility] Rx #:[id number] Oral 120 / 120 Output: Left Nephrostomy 225 / 225 Right Nephrostomy 350 / 350 Wound Drainage 500 / 1625 Left 200 / 750 Right 300 / 875 Other: Meal Breakfast Percent of Meal Consumed 90% Weight 130.7 kg Blood Glucose* 219 151 Patient Weight 10/17/18 23:59 Weight 130.7 kg - General Appearance General appearance: Present: well-developed, well-nourished EENT: Present: ATNC Cardiology: Present: regular rate Gastrointestinal: Present: obese Neurologic: Present: alert and oriented x3 Musculoskeletal: Present: no cyanosis Psychiatric: Present: mood/affect appropriate - Lab 10/17/18 04:45 10/17/18 04:45 Most recent lab results 10/17/18 04:45 Calcium 9.3 Consult Discharge Plan - Plan Instructions: Acute Kidney Injury (DC), Urinary Tract Infection in Men (DC) Additional Instructions: Home Health has been set up through [place]. They will contact you with a date and time to complete admission. If you need to contact them please call #[phone] or #[phone]. Referrals: Unique Ayala MD [Partnered Physician] - 11/15/18 2:20 pm Saleem Ramirez DO [Primary Care Provider] - 10/19/18 3:30 pm () Dominick Ibarra MD [Partnered Physician] - 11/15/18 1:15 pm Prescriptions: Amoxicillin [Amoxil] 500 mg PO TID #18 capsule Lactobacillus [Culturelle] 1 each PO BID #20 cap.sprink Vancomycin Oral Soln [Firvanq] 125 mg PO QID #32 udc levoFLOXacin [Levaquin] 750 mg PO Q48H #3 tablet
[2018-10-17 19:10] LABS: Kappa Qnt Free Light Chains 1.75 mg/dL (0.33-1.94); Lambda Qnt Free Light Chains 1.14 mg/dL (0.57-2.63)
[2018-10-19 00:43] LABS: Alpha 2 Globulin (PEP) 0.91 g/dL (0.48-1.05); Beta Globulin (PEP) 0.57 g/dL (0.48-1.10)
[2018-10-19 10:13] LABS: Immunoglobulin G 354 mg/dL (768-1632); Immunoglobulin M 69 mg/dL (35-263)
[2018-10-19 10:14] LABS: Immunoglobulin A 91 mg/dL (68-408)
[2018-10-19 10:28] LABS: IFE Reflexed IFE Done
== END 2018-10-17 17:58 | disposition home health service (06) | DRG 872 ==
LOC: 3BNU 12:06 → EMEROOARM 12:06 → 3BNU 20:04 → SUATTDRO 10-11 14:47
PROVIDERS: ADMIT Internal Medicine Nephrology; ATTEND Family Medicine

== ENCOUNTER 2019-03-04 10:53 | Inpatient (IN) ==
[2019-03-04 13:25] LABS: Hematocrit 33.1 % (37.5-50.1); Hemoglobin 10.7 g/dL (12.9-16.9); Mean Corpuscular HGB Conc 32.3 g/dL (31.6-35.5); Mean Corpuscular Hemoglobin 28.8 pg (28.0-33.3); Mean Platelet Volume 10.3 fL (9.4-12.4); Monocytes # 0.1 K/mcL (0.0-1.3); Platelet Count 153 K/mcL (140-400); Red Blood Count 3.72 M/mcL (4.19-5.50); Red Cell Distribution Width 15.9 % (11.5-14.5)
[2019-03-04 13:47] LABS: Alanine Aminotransferase 11 Units/L (7-52); Albumin 3.1 g/dL (3.5-5.7); Albumin/Globulin Ratio 1.1 (1.1-2.2); Alkaline Phosphatase 110 Units/L (34-104); Aspartate Amino Transferase 8 Units/L (13-39); BUN/Creatinine Ratio 20 (6-26); Bilirubin,Direct 0.1 mg/dL (0.0-0.2); Bilirubin,Indirect 0.4 mg/dL (0.0-1.0); Bilirubin,Total 0.5 mg/dL (0.3-1.0); Blood Urea Nitrogen 41 mg/dL (8-23); Calcium 8.3 mg/dL (8.6-10.3); Carbon Dioxide 23 mEq/L (23-29); Chloride 93 mEq/L (98-107); Globulin 2.7 g/dL (2.4-3.5); Glucose 603 mg/dL (70-105); Lipase 20 Units/L (11-82); Osmolality,Calculated 304 (280-300); Potassium 4.6 mEq/L (3.5-5.1); Sodium 128 mEq/L (136-145); Total Protein 5.8 g/dL (6.4-8.9); Troponin I < 0.03 ng/mL (< 0.04); eGFR For African Americans 40 (> 60); eGFR For Non-African Americans 33 (> 60)
[2019-03-04 13:58] LABS: White Blood Count 0.7 K/mcL (4.3-11.1)
[2019-03-04] MEDS ORDERED: 0.9 % Sodium Chloride 1,000 ML IVC ONE (14:00)
[2019-03-04] MEDS ORDERED: Insulin Human Regular 10 UNIT in 0.9 % Sodium Chloride 10 ML IV ONE (14:00)
[2019-03-04 14:05] LABS: Lymphocytes # 0.2 K/mcL (0.6-4.6); Neutrophils # 0.5 K/mcL (1.6-8.9)
[2019-03-04 14:08] LABS: Platelet Estimate Normal (Normal)
[2019-03-04 14:09] LABS: Bilirubin,Urine Negative (Negative); Blood,Urine Moderate (Negative); Clarity,Urine Cloudy (Clear); Color,Urine Yellow (Yellow); Glucose,Urine (UA) >=1000 mg/dL (Normal); Ketones,Urine 15 mg/dL (Negative); Leukocyte Esterase,Urine Small (Negative); Nitrite,Urine Positive (Negative); Protein,Urine >=300 mg/dL (Neg-Trace); Specific Gravity,Urine 1.025 (1.010-1.025); Urobilinogen,Urine Normal (Normal)
[2019-03-04 14:10] LABS: Bilirubin,Urine Negative (Negative); Blood,Urine Moderate (Negative); Clarity,Urine Turbid (Clear); Color,Urine Yellow (Yellow); Glucose,Urine (UA) >=1000 mg/dL (Normal); Ketones,Urine 15 mg/dL (Negative); Leukocyte Esterase,Urine Moderate (Negative); Nitrite,Urine Negative (Negative); PH,Urine 5.5 pH Units (5.0-8.0); Protein,Urine 100 mg/dL (Neg-Trace); Specific Gravity,Urine 1.023 (1.010-1.025); Urobilinogen,Urine Normal (Normal)
[2019-03-04 14:13] LABS: Bacteria,Urine Moderate per hpf (None-Few); Hyaline Casts,Urine None Seen per lpf (None-Few); Squamous Epithelial Cell,Urine None Seen per lpf (None-Few); WBC,Urine TNTC per hpf (0-3)
[2019-03-04 14:15] LABS: Bacteria,Urine None Seen per hpf (None-Few); Hyaline Casts,Urine None Seen per lpf (None-Few); Squamous Epithelial Cell,Urine Few per lpf (None-Few); WBC,Urine TNTC per hpf (0-3)
[2019-03-04] MEDS ORDERED: Cefepime HCl 2,000 MG in Water for inj. (sterile) 20 ML IVP ONE (14:21)
[2019-03-04 14:35] LABS: Yeast,Urine Many per hpf (None Seen)
[2019-03-04 14:38] LABS: Yeast,Urine Many per hpf (None Seen)
[2019-03-04] MEDS ORDERED: Naloxone 0.4 MG/ML INJ IVP PRN ×2 (15:51→16:38)
[2019-03-04] MEDS ORDERED: Lubiprostone [Amitiza] 24 MCG PO PRN (15:53)
[2019-03-04] MEDS ORDERED: *HR* OxyCODONE Immed Rel 15 MG TABLET PO PRN (15:53)
[2019-03-04] MEDS ORDERED: *HR* Dextrose 50 % in Water (Syg) 50 ML SYRINGE IVP PRN (16:02)
[2019-03-04] MEDS ORDERED: D5% in Water 1,000 ML IVC PRN (16:02)
[2019-03-04] MEDS ORDERED: Dextrose Gel 15 GM/37.5 ML TUBE PO PRN ×2 (16:02)
[2019-03-04] MEDS: predniSONE 5 MG TABLET PO SCH (18:13)
[2019-03-04] MEDS: *HR* OxyCODONE ER (12 HR) 10 MG TABLET PO SCH (18:13)
[2019-03-04] MEDS: *HR* Heparin 5,000 UNIT/ML VIAL SQ SCH (18:14)
[2019-03-04] MEDS: Insulin LISPRO 300 UNITS/3 ML VIAL SQ SCH ×2 (18:14→20:16)
[2019-03-04] MEDS: MOM Conc 10 ML UD.LIQ PO SCH (18:14)
[2019-03-04] MEDS: Ondansetron 4 MG/2 ML VIAL IVP PRN (18:14)
[2019-03-04] MEDS: Cefepime HCl 2,000 MG in 0.9 % Sodium Chloride Mini Bag 100 ML IVPB SCH ×2 (18:21→22:19)
[2019-03-04] MEDS: 0.9 % Sodium Chloride 1,000 ML IVC SCH (18:29)
[2019-03-04] MEDS: Gabapentin 100 MG CAPSULE PO SCH (20:15)
[2019-03-04] MEDS: OLANZapine 5 MG TAB.RAPDIS PO SCH (20:16)
[2019-03-04] MEDS: Insulin DETEMIR 100 UNIT/ML X5UNITS SQ SCH (20:28)
[2019-03-05] MEDS: Ondansetron 4 MG/2 ML VIAL IVP PRN (02:10)
[2019-03-05 03:41] LABS: Basophils % 1.8 %
[2019-03-05 03:43] LABS: Eosinophils % 5.5 %; Hematocrit 31.1 % (37.5-50.1); Hemoglobin 10.1 g/dL (12.9-16.9); Immature Granulocytes % 1.8 % (0-4); Lymphocytes # 0.1 K/mcL (0.6-4.6); Lymphocytes % 23.6 %; Mean Corpuscular HGB Conc 32.5 g/dL (31.6-35.5); Mean Corpuscular Hemoglobin 28.9 pg (28.0-33.3); Mean Corpuscular Volume 88.9 fL (83.0-100.0); Mean Platelet Volume 10.4 fL (9.4-12.4); Monocytes # 0.1 K/mcL (0.0-1.3); Monocytes % 14.5 %; Neutrophils # 0.3 K/mcL (1.6-8.9); Platelet Count 160 K/mcL (140-400); Red Cell Distribution Width 15.8 % (11.5-14.5); Segmented Neutrophils % 52.8 %
[2019-03-05 03:46] LABS: White Blood Count 0.6 K/mcL (4.3-11.1)
[2019-03-05 03:58] LABS: Calcium 7.5 mg/dL (8.6-10.3); Potassium 3.6 mEq/L (3.5-5.1)
[2019-03-05 04:21] LABS: Platelet Estimate Normal (Normal)
[2019-03-05] MEDS: *HR* Heparin 5,000 UNIT/ML VIAL SQ SCH ×2 (05:55→17:24)
[2019-03-05] MEDS ORDERED: *HR* OxyCODONE Immed Rel 15 MG TABLET PO PRN (07:05)
[2019-03-05] MEDS: DilTIAZem CD (24hr) 240 MG CAP.ER.24H PO SCH (07:47)
[2019-03-05] MEDS: Insulin LISPRO 300 UNITS/3 ML VIAL SQ SCH ×4 (08:29→20:16)
[2019-03-05] MEDS: MOM Conc 10 ML UD.LIQ PO SCH (08:29)
[2019-03-05] MEDS: *HR* OxyCODONE ER (12 HR) 10 MG TABLET PO SCH ×2 (08:29→20:15)
[2019-03-05] MEDS: predniSONE 5 MG TABLET PO SCH ×2 (08:29→17:24)
[2019-03-05] MEDS: Cefepime HCl 2,000 MG in 0.9 % Sodium Chloride Mini Bag 100 ML IVPB SCH ×2 (08:30→17:24)
[2019-03-05] MEDS ORDERED: Insulin DETEMIR 100 UNIT/ML X5UNITS SQ ONE (08:55)
[2019-03-05] MEDS ORDERED: Acetaminophen 325 MG TABLET PO PRN (11:37)
[2019-03-05] MEDS: 0.9 % Sodium Chloride 1,000 ML IVC SCH (11:58)
[2019-03-05] MEDS ORDERED: Cefepime HCl 2,000 MG in 0.9 % Sodium Chloride Mini Bag 100 ML IVPB SCH (15:00)
[2019-03-05] MEDS: OLANZapine 5 MG TAB.RAPDIS PO SCH (20:14)
[2019-03-05] MEDS: Sennosides/Docusate Sodium TABLET PO SCH (20:15)
[2019-03-05] MEDS: Gabapentin 100 MG CAPSULE PO SCH (20:15)
[2019-03-05] MEDS: Insulin DETEMIR 100 UNIT/ML X5UNITS SQ SCH (20:16)
[2019-03-06] MEDS: Cefepime HCl 2,000 MG in 0.9 % Sodium Chloride Mini Bag 100 ML IVPB SCH (05:18)
[2019-03-06] MEDS: Ondansetron 4 MG/2 ML VIAL IVP PRN ×2 (05:18→15:05)
[2019-03-06] MEDS: *HR* Heparin 5,000 UNIT/ML VIAL SQ SCH ×2 (05:18→18:28)
[2019-03-06] MEDS ORDERED: *HR* Promethazine 25 MG/ML VIAL IVP ONE ×2 (05:20→12:31)
[2019-03-06 05:41] LABS: Mean Platelet Volume 10.1 fL (9.4-12.4)
[2019-03-06 05:42] LABS: Hematocrit 30.1 % (37.5-50.1); Hemoglobin 9.5 g/dL (12.9-16.9); Lymphocytes # 0.3 K/mcL (0.6-4.6); Mean Corpuscular HGB Conc 31.6 g/dL (31.6-35.5); Mean Corpuscular Hemoglobin 29.1 pg (28.0-33.3); Platelet Count 133 K/mcL (140-400); Red Blood Count 3.27 M/mcL (4.19-5.50); Red Cell Distribution Width 15.7 % (11.5-14.5); White Blood Count 1.5 K/mcL (4.3-11.1)
[2019-03-06 05:55] LABS: Calcium 7.6 mg/dL (8.6-10.3); Potassium 3.5 mEq/L (3.5-5.1)
[2019-03-06 06:26] LABS: Anisocytosis 1+ (Not Present); Monocytes # 0.1 K/mcL (0.0-1.3); Neutrophils # 1.1 K/mcL (1.6-8.9)
[2019-03-06 06:27] LABS: Microcytosis Present (Not Present); Platelet Estimate Normal (Normal)
[2019-03-06] MEDS: MOM Conc 10 ML UD.LIQ PO SCH (08:40)
[2019-03-06] MEDS: predniSONE 5 MG TABLET PO SCH ×2 (08:40→18:01)
[2019-03-06] MEDS: DilTIAZem CD (24hr) 240 MG CAP.ER.24H PO SCH (08:40)
[2019-03-06] MEDS: Sennosides/Docusate Sodium TABLET PO SCH ×2 (08:40→23:39)
[2019-03-06] MEDS: Insulin LISPRO 300 UNITS/3 ML VIAL SQ SCH ×3 (08:40→18:00)
[2019-03-06] MEDS: *HR* OxyCODONE ER (12 HR) 10 MG TABLET PO SCH ×2 (08:40→23:37)
[2019-03-06] MEDS ORDERED: Acetaminophen 325 MG TABLET PO PRN (09:31)
[2019-03-06] MEDS ORDERED: levoFLOXacin 750 MG/150 ML 750 MG/150 ML BAG IVPB ONE (10:55)
[2019-03-06] MEDS: Ampicillin 2 GM in 0.9 % Sodium Chloride Mini Bag 100 ML IVPB SCH ×3 (11:52→23:38)
[2019-03-06] MEDS: OLANZapine 5 MG TAB.RAPDIS PO SCH (23:37)
[2019-03-06] MEDS: Gabapentin 100 MG CAPSULE PO SCH (23:37)
[2019-03-07] MEDS: Insulin LISPRO 300 UNITS/3 ML VIAL SQ SCH ×5 (00:19→22:21)
[2019-03-07] MEDS: Insulin DETEMIR 100 UNIT/ML X5UNITS SQ SCH ×2 (00:20→22:22)
[2019-03-07] MEDS: Ondansetron 4 MG/2 ML VIAL IVP PRN ×3 (01:39→22:23)
[2019-03-07] MEDS: Ampicillin 2 GM in 0.9 % Sodium Chloride Mini Bag 100 ML IVPB SCH ×4 (06:37→23:48)
[2019-03-07] MEDS: *HR* Heparin 5,000 UNIT/ML VIAL SQ SCH ×2 (06:38→17:46)
[2019-03-07 07:15] LABS: Hematocrit 29.1 % (37.5-50.1); Hemoglobin 9.2 g/dL (12.9-16.9); Mean Corpuscular HGB Conc 31.6 g/dL (31.6-35.5); Mean Corpuscular Hemoglobin 28.4 pg (28.0-33.3); Mean Corpuscular Volume 89.8 fL (83.0-100.0); Mean Platelet Volume 10.2 fL (9.4-12.4); Nucleated Red Blood Cells 0.4 /100 WBC (0); Platelet Count 142 K/mcL (140-400); Red Blood Count 3.24 M/mcL (4.19-5.50); Red Cell Distribution Width 15.7 % (11.5-14.5)
[2019-03-07 07:20] LABS: White Blood Count 4.9 K/mcL (4.3-11.1)
[2019-03-07 07:24] LABS: Calcium 7.4 mg/dL (8.6-10.3); Potassium 3.3 mEq/L (3.5-5.1)
[2019-03-07 08:02] LABS: Lymphocytes # 0.7 K/mcL (0.6-4.6); Monocytes # 0.6 K/mcL (0.0-1.3); Neutrophils # 3.5 K/mcL (1.6-8.9)
[2019-03-07 08:03] LABS: Platelet Estimate Normal (Normal)
[2019-03-07] MEDS: MOM Conc 10 ML UD.LIQ PO SCH (08:45)
[2019-03-07] MEDS: *HR* OxyCODONE ER (12 HR) 10 MG TABLET PO SCH ×2 (08:45→22:22)
[2019-03-07] MEDS: DilTIAZem CD (24hr) 240 MG CAP.ER.24H PO SCH (08:45)
[2019-03-07] MEDS: Sennosides/Docusate Sodium TABLET PO SCH ×2 (08:45→22:22)
[2019-03-07] MEDS: predniSONE 5 MG TABLET PO SCH ×2 (08:46→16:55)
[2019-03-07] MEDS ORDERED: levoFLOXacin 750 MG/150 ML 750 MG/150 ML BAG IVPB SCH (09:00)
[2019-03-07] MEDS ORDERED: Fluconazole 100 MG TABLET PO ONE (14:34)
[2019-03-07] MEDS: Gabapentin 100 MG CAPSULE PO SCH (22:22)
[2019-03-07] MEDS: OLANZapine 5 MG TAB.RAPDIS PO SCH (22:22)
[2019-03-08] MEDS: *HR* Heparin 5,000 UNIT/ML VIAL SQ SCH ×2 (06:32→17:17)
[2019-03-08] MEDS: Ampicillin 2 GM in 0.9 % Sodium Chloride Mini Bag 100 ML IVPB SCH ×4 (06:32→23:10)
[2019-03-08] MEDS: Ondansetron 4 MG/2 ML VIAL IVP PRN ×2 (07:47→15:48)
[2019-03-08] MEDS ORDERED: Isovue-300 50ML VIAL IVP ONE (08:56)
[2019-03-08] MEDS: DilTIAZem CD (24hr) 240 MG CAP.ER.24H PO SCH (09:22)
[2019-03-08] MEDS: predniSONE 5 MG TABLET PO SCH ×2 (09:22→17:17)
[2019-03-08] MEDS: Sennosides/Docusate Sodium TABLET PO SCH ×2 (09:22→22:49)
[2019-03-08] MEDS: *HR* OxyCODONE ER (12 HR) 10 MG TABLET PO SCH ×2 (09:22→23:10)
[2019-03-08] MEDS: MOM Conc 10 ML UD.LIQ PO SCH (09:23)
[2019-03-08] MEDS: levoFLOXacin 750 MG/150 ML 750 MG/150 ML BAG IVPB SCH (09:24)
[2019-03-08] MEDS: Insulin LISPRO 300 UNITS/3 ML VIAL SQ SCH ×7 (09:32→23:09)
[2019-03-08] MEDS: *HR* OxyCODONE Immed Rel 15 MG TABLET PO PRN ×2 (12:20→14:30)
[2019-03-08] MEDS: Insulin DETEMIR 100 UNIT/ML X5UNITS SQ SCH (23:10)
[2019-03-08] MEDS: OLANZapine 5 MG TAB.RAPDIS PO SCH (23:10)
[2019-03-08] MEDS: Gabapentin 100 MG CAPSULE PO SCH (23:10)
[2019-03-09] MEDS: *HR* Heparin 5,000 UNIT/ML VIAL SQ SCH ×2 (06:30→17:05)
[2019-03-09] MEDS: Ondansetron 4 MG/2 ML VIAL IVP PRN (07:15)
[2019-03-09] MEDS: Ampicillin 2 GM in 0.9 % Sodium Chloride Mini Bag 100 ML IVPB SCH ×3 (07:29→17:05)
[2019-03-09] MEDS: DilTIAZem CD (24hr) 240 MG CAP.ER.24H PO SCH (08:30)
[2019-03-09] MEDS: *HR* OxyCODONE ER (12 HR) 10 MG TABLET PO SCH ×2 (08:30→20:55)
[2019-03-09] MEDS: MOM Conc 10 ML UD.LIQ PO SCH (08:30)
[2019-03-09] MEDS: Insulin LISPRO 300 UNITS/3 ML VIAL SQ SCH ×7 (08:30→19:49)
[2019-03-09] MEDS: Sennosides/Docusate Sodium TABLET PO SCH ×2 (08:30→20:57)
[2019-03-09] MEDS: predniSONE 5 MG TABLET PO SCH ×2 (08:30→17:05)
[2019-03-09] MEDS: Insulin DETEMIR 100 UNIT/ML X5UNITS SQ SCH (19:51)
[2019-03-09] MEDS: Gabapentin 100 MG CAPSULE PO SCH (20:55)
[2019-03-09] MEDS: OLANZapine 5 MG TAB.RAPDIS PO SCH (20:55)
[2019-03-10] MEDS: Ampicillin 2 GM in 0.9 % Sodium Chloride Mini Bag 100 ML IVPB SCH ×4 (00:31→17:29)
[2019-03-10] MEDS: Ondansetron 4 MG/2 ML VIAL IVP PRN ×2 (06:35→17:27)
[2019-03-10] MEDS: DilTIAZem CD (24hr) 240 MG CAP.ER.24H PO SCH (09:42)
[2019-03-10] MEDS: *HR* Heparin 5,000 UNIT/ML VIAL SQ SCH ×2 (09:42→17:29)
[2019-03-10] MEDS: *HR* OxyCODONE ER (12 HR) 10 MG TABLET PO SCH ×2 (09:42→20:32)
[2019-03-10] MEDS: predniSONE 5 MG TABLET PO SCH ×2 (09:42→17:31)
[2019-03-10] MEDS: Insulin LISPRO 300 UNITS/3 ML VIAL SQ SCH ×7 (09:43→20:36)
[2019-03-10] MEDS: Sennosides/Docusate Sodium TABLET PO SCH ×2 (09:44→20:43)
[2019-03-10] MEDS: MOM Conc 10 ML UD.LIQ PO SCH (09:44)
[2019-03-10] MEDS: levoFLOXacin 750 MG/150 ML 750 MG/150 ML BAG IVPB SCH (09:44)
[2019-03-10] MEDS: OLANZapine 5 MG TAB.RAPDIS PO SCH (20:32)
[2019-03-10] MEDS: Gabapentin 100 MG CAPSULE PO SCH (20:32)
[2019-03-10] MEDS: Insulin DETEMIR 100 UNIT/ML X5UNITS SQ SCH (20:37)
[2019-03-11] MEDS: Ampicillin 2 GM in 0.9 % Sodium Chloride Mini Bag 100 ML IVPB SCH ×3 (00:23→11:58)
[2019-03-11] MEDS: Ondansetron 4 MG/2 ML VIAL IVP PRN ×2 (00:33→09:36)
[2019-03-11] MEDS: *HR* Heparin 5,000 UNIT/ML VIAL SQ SCH (05:34)
[2019-03-11] MEDS: Insulin LISPRO 300 UNITS/3 ML VIAL SQ SCH ×4 (09:36→11:59)
[2019-03-11] MEDS: predniSONE 5 MG TABLET PO SCH (09:36)
[2019-03-11] MEDS: *HR* OxyCODONE ER (12 HR) 10 MG TABLET PO SCH (09:36)
[2019-03-11] MEDS: DilTIAZem CD (24hr) 240 MG CAP.ER.24H PO SCH (09:36)
[2019-03-11] MEDS: MOM Conc 10 ML UD.LIQ PO SCH (09:38)
[2019-03-11] MEDS: Sennosides/Docusate Sodium TABLET PO SCH (09:38)
[2019-03-11 09:57] LABS: Hematocrit 28.3 % (37.5-50.1); Hemoglobin 9.1 g/dL (12.9-16.9); Mean Corpuscular HGB Conc 32.2 g/dL (31.6-35.5); Mean Corpuscular Hemoglobin 29.2 pg (28.0-33.3); Mean Corpuscular Volume 90.7 fL (83.0-100.0); Mean Platelet Volume 9.8 fL (9.4-12.4); Nucleated Red Blood Cells 1.3 /100 WBC (0); Platelet Count 171 K/mcL (140-400); Red Blood Count 3.12 M/mcL (4.19-5.50); Red Cell Distribution Width 16.3 % (11.5-14.5)
[2019-03-11 10:01] LABS: White Blood Count 15.9 K/mcL (4.3-11.1)
[2019-03-11 10:14] LABS: Albumin 2.9 g/dL (3.5-5.7); Albumin/Globulin Ratio 1.3 (1.1-2.2); Bilirubin,Direct 0.1 mg/dL (0.0-0.2); Bilirubin,Indirect 0.1 mg/dL (0.0-1.0); Bilirubin,Total 0.2 mg/dL (0.3-1.0); Calcium 8.1 mg/dL (8.6-10.3); Globulin 2.3 g/dL (2.4-3.5); Magnesium 1.6 mg/dL (1.6-2.6); Potassium 3.6 mEq/L (3.5-5.1); Total Protein 5.2 g/dL (6.4-8.9)
[2019-03-11 11:59] VITALS: BP 134/77
[2019-03-11 13:07] LABS: Anisocytosis 1+ (Not Present); Lymphocytes # 1.3 K/mcL (0.6-4.6); Monocytes # 0.6 K/mcL (0.0-1.3); Neutrophils # 10.5 K/mcL (1.6-8.9); Platelet Estimate Normal (Normal); Polychromasia 1+ (Not Present); Reactive Lymphocytes Present (Not Present); Toxic Granulation Present (Not Present)
[2019-03-11 13:08] LABS: Poikilocytosis 1+ (Not Present)
[2019-03-11] MEDS ORDERED: Insulin DETEMIR 100 UNIT/ML X5UNITS SQ SCH (21:00)
== END 2019-03-11 17:13 | DRG 690 ==
LOC: EMEROOARM 10:53 → 3BNU 10:53 → SUATTDRO 14:30 → 2ANU 15:03 → SUATTDRO 03-07 10:53
PROVIDERS: ADMIT Student in an Organized Health Care Education/Training Program; ATTEND Internal Medicine

== ENCOUNTER 2019-04-22 13:55 | Inpatient (IN) ==
[2019-04-22] MEDS ORDERED: 0.9 % Sodium Chloride 1,000 ML IVC ONE ×2 (14:28→16:07)
[2019-04-22 15:15] LABS: Bilirubin,Urine Negative (Negative); Blood,Urine Moderate (Negative); Clarity,Urine Turbid (Clear); Color,Urine Yellow (Yellow); Glucose,Urine (UA) 100 mg/dL (Normal); Ketones,Urine Negative (Negative); Leukocyte Esterase,Urine Large (Negative); Nitrite,Urine Negative (Negative); PH,Urine 6.5 pH Units (5.0-8.0); Protein,Urine 100 mg/dL (Neg-Trace); Specific Gravity,Urine 1.016 (1.010-1.025); Urobilinogen,Urine Normal (Normal)
[2019-04-22 15:17] LABS: Squamous Epithelial Cell,Urine Moderate per lpf (None-Few)
[2019-04-22 15:44] LABS: Bacteria,Urine Moderate per hpf (None-Few); RBC,Urine 0-3 per hpf (0-3); WBC,Urine 50-100 per hpf (0-3); Yeast,Urine Many per hpf (None Seen)
[2019-04-22 15:48] LABS: Basophils % 0.3 %; Eosinophils # 0.1 K/mcL (0.0-0.6); Eosinophils % 1.2 %; Hematocrit 32.6 % (37.5-50.1); Hemoglobin 10.1 g/dL (12.9-16.9); Immature Granulocytes % 0.8 % (0-4); Lymphocytes # 0.7 K/mcL (0.6-4.6); Lymphocytes % 8.9 %; Mean Corpuscular Hemoglobin 27.9 pg (28.0-33.3); Mean Corpuscular Volume 90.1 fL (83.0-100.0); Mean Platelet Volume 8.5 fL (9.4-12.4); Monocytes # 0.4 K/mcL (0.0-1.3); Monocytes % 5.8 %; Neutrophils # 6.3 K/mcL (1.6-8.9); Platelet Count 373 K/mcL (140-400); Red Blood Count 3.62 M/mcL (4.19-5.50); Red Cell Distribution Width 16.2 % (11.5-14.5); White Blood Count 7.5 K/mcL (4.3-11.1)
[2019-04-22 16:04] LABS: Calcium 8.4 mg/dL (8.6-10.3); Potassium 4.3 mEq/L (3.5-5.1)
[2019-04-22] MEDS ORDERED: Cefepime HCl 2,000 MG in Water for inj. (sterile) 20 ML IVP STA (16:04)
[2019-04-22] MEDS ORDERED: Acetaminophen 325 MG TABLET PO PRN (16:57)
[2019-04-22] MEDS ORDERED: Naloxone 0.4 MG/ML INJ IVP PRN (16:57)
[2019-04-22] MEDS ORDERED: *HR* OxyCODONE Immed Rel 5 MG TABLET PO PRN (16:57)
[2019-04-22] MEDS ORDERED: Dextrose Gel 15 GM/37.5 ML TUBE PO PRN ×2 (17:07)
[2019-04-22] MEDS ORDERED: D5% in Water 1,000 ML IVC PRN (17:07)
[2019-04-22] MEDS ORDERED: *HR* Dextrose 50 % in Water (Syg) 50 ML SYRINGE IVP PRN (17:07)
[2019-04-22] MEDS ORDERED: Ondansetron 4 MG/2 ML VIAL IVP ONE (17:26)
[2019-04-22] MEDS ORDERED: Piperacillin/Tazobactam 3.375 GM in 0.9 % Sodium Chloride Mini Bag 100 ML IVPB SCH (18:00)
[2019-04-22] MEDS: *HR* Heparin 5,000 UNIT/ML VIAL SQ SCH (20:37)
[2019-04-22] MEDS: Ondansetron 4 MG/2 ML VIAL IVP PRN (20:37)
[2019-04-22] MEDS: Gabapentin 100 MG CAPSULE PO SCH (20:38)
[2019-04-22] MEDS: Insulin DETEMIR 100 UNIT/ML X5UNITS SQ SCH (20:38)
[2019-04-22] MEDS: Ringers Solution, Lactated 1,000 ML IVC SCH (20:39)
[2019-04-22] MEDS: Insulin LISPRO 300 UNITS/3 ML VIAL SQ SCH (20:39)
[2019-04-22] MEDS: *HR* HYDROcodone/Acet 5/325 mg TABLET PO PRN (21:02)
[2019-04-23] MEDS: Cefepime HCl 2,000 MG in Water for inj. (sterile) 20 ML IVP SCH ×2 (04:37→17:22)
[2019-04-23] MEDS: *HR* Heparin 5,000 UNIT/ML VIAL SQ SCH ×2 (04:49→17:22)
[2019-04-23 05:32] LABS: Basophils % 0.3 %; Eosinophils # 0.2 K/mcL (0.0-0.6); Eosinophils % 2.4 %; Hematocrit 29.1 % (37.5-50.1); Hemoglobin 9.1 g/dL (12.9-16.9); Immature Granulocytes % 0.7 % (0-4); Lymphocytes # 0.7 K/mcL (0.6-4.6); Lymphocytes % 10.6 %; Mean Corpuscular HGB Conc 31.3 g/dL (31.6-35.5); Mean Corpuscular Hemoglobin 28.5 pg (28.0-33.3); Mean Corpuscular Volume 91.2 fL (83.0-100.0); Mean Platelet Volume 8.7 fL (9.4-12.4); Monocytes # 0.5 K/mcL (0.0-1.3); Monocytes % 7.5 %; Neutrophils # 5.3 K/mcL (1.6-8.9); Platelet Count 345 K/mcL (140-400); Red Blood Count 3.19 M/mcL (4.19-5.50); Red Cell Distribution Width 16.2 % (11.5-14.5); Segmented Neutrophils % 78.5 %; White Blood Count 6.8 K/mcL (4.3-11.1)
[2019-04-23 05:55] LABS: Calcium 7.8 mg/dL (8.6-10.3); Phosphorous 1.7 mg/dL (2.7-4.5)
[2019-04-23] MEDS: Insulin LISPRO 300 UNITS/3 ML VIAL SQ SCH ×4 (08:51→20:46)
[2019-04-23] MEDS: Ringers Solution, Lactated 1,000 ML IVC SCH (08:51)
[2019-04-23] MEDS: predniSONE 5 MG TABLET PO SCH ×2 (08:52→17:22)
[2019-04-23] MEDS: DilTIAZem CD (24hr) 240 MG CAP.ER.24H PO SCH (08:52)
[2019-04-23] MEDS: Gabapentin 100 MG CAPSULE PO SCH (20:44)
[2019-04-23] MEDS: Ondansetron 4 MG/2 ML VIAL IVP PRN (20:45)
[2019-04-23] MEDS: Insulin DETEMIR 100 UNIT/ML X5UNITS SQ SCH (20:45)
[2019-04-23] MEDS: Lactobacillus 1 EACH CAP.SPRINK PO SCH (23:06)
[2019-04-23] MEDS: Nystatin Cream 15 GM TUBE TP SCH (23:07)
[2019-04-24] MEDS: Ondansetron 4 MG/2 ML VIAL IVP SCH ×4 (00:41→23:48)
[2019-04-24 04:34] LABS: Basophils % 0.3 %; Eosinophils # 0.1 K/mcL (0.0-0.6); Eosinophils % 1.9 %; Hemoglobin 8.8 g/dL (12.9-16.9); Immature Granulocytes % 0.5 % (0-4); Lymphocytes # 0.7 K/mcL (0.6-4.6); Lymphocytes % 11.8 %; Mean Corpuscular HGB Conc 31.4 g/dL (31.6-35.5); Mean Corpuscular Hemoglobin 28.6 pg (28.0-33.3); Mean Corpuscular Volume 90.9 fL (83.0-100.0); Mean Platelet Volume 8.2 fL (9.4-12.4); Monocytes # 0.4 K/mcL (0.0-1.3); Monocytes % 6.7 %; Neutrophils # 4.7 K/mcL (1.6-8.9); Platelet Count 290 K/mcL (140-400); Red Blood Count 3.08 M/mcL (4.19-5.50); Segmented Neutrophils % 78.8 %; White Blood Count 5.9 K/mcL (4.3-11.1)
[2019-04-24 04:54] LABS: BUN/Creatinine Ratio 9 (6-26); Blood Urea Nitrogen 13 mg/dL (8-23); Calcium 7.3 mg/dL (8.6-10.3); Carbon Dioxide 23 mEq/L (23-29); Chloride 107 mEq/L (98-107); Glucose 153 mg/dL (70-105); Magnesium 1.9 mg/dL (1.6-2.6); Osmolality,Calculated 283 (280-300); Phosphorous 2.4 mg/dL (2.7-4.5); Potassium 3.7 mEq/L (3.5-5.1); Sodium 135 mEq/L (136-145); eGFR For African Americans > 60 (> 60); eGFR For Non-African Americans 51 (> 60)
[2019-04-24] MEDS: Cefepime HCl 2,000 MG in Water for inj. (sterile) 20 ML IVP SCH ×2 (05:21→17:53)
[2019-04-24] MEDS: *HR* Heparin 5,000 UNIT/ML VIAL SQ SCH (05:36)
[2019-04-24] MEDS: Lactobacillus 1 EACH CAP.SPRINK PO SCH (08:41)
[2019-04-24] MEDS: Insulin LISPRO 300 UNITS/3 ML VIAL SQ SCH ×4 (08:41→21:25)
[2019-04-24] MEDS: Nystatin Cream 15 GM TUBE TP SCH ×3 (08:42→22:11)
[2019-04-24] MEDS: DilTIAZem CD (24hr) 240 MG CAP.ER.24H PO SCH (08:42)
[2019-04-24] MEDS: predniSONE 5 MG TABLET PO SCH ×2 (08:42→17:54)
[2019-04-24] MEDS ORDERED: 0.9 % Sodium Chloride 500 ML ONE (11:03)
[2019-04-24] MEDS ORDERED: Isovue-300 50ML VIAL IVP ONE (11:53)
[2019-04-24] MEDS: *HR* HYDROcodone/Acet 5/325 mg TABLET PO PRN (14:53)
[2019-04-24] MEDS: *HR* OxyCODONE ER (12 HR) 10 MG TABLET PO SCH (17:54)
[2019-04-24 19:45] LABS: Adenovirus Not Detected (Not Detect); Bordetella Pertussis Not Detected (Not Detect); Chlamydophila pneumoniae Not Detected (Not Detect); Coronavirus 229E Not Detected (Not Detect); Coronavirus HKU1 Not Detected (Not Detect); Coronavirus NL63 Not Detected (Not Detect); Coronavirus OC43 Not Detected (Not Detect); Human Metapneumovirus Not Detected (Not Detect); Human Rhinovirus/Enterovirus Not Detected (Not Detect); Influenza A Subtype 2009 H1 Not Detected (Not Detect); Influenza B Not Detected (Not Detect); Mycoplasma pneumoniae Not Detected (Not Detect); Parainfluenza Virus 1 Not Detected (Not Detect); Parainfluenza Virus 2 Not Detected (Not Detect); Parainfluenza Virus 3 Not Detected (Not Detect); Parainfluenza Virus 4 Not Detected (Not Detect); Respiratory Syncytial Virus Not Detected (Not Detect)
[2019-04-24] MEDS: *HR* OxyCODONE Immed Rel 15 MG TABLET PO PRN (21:24)
[2019-04-24] MEDS: Gabapentin 100 MG CAPSULE PO SCH (21:24)
[2019-04-24] MEDS: Insulin DETEMIR 100 UNIT/ML X5UNITS SQ SCH (21:25)
[2019-04-25 04:04] LABS: Calcium 7.3 mg/dL (8.6-10.3); Potassium 4.3 mEq/L (3.5-5.1)
[2019-04-25] MEDS: *HR* OxyCODONE ER (12 HR) 10 MG TABLET PO SCH ×2 (05:05→17:16)
[2019-04-25] MEDS: Cefepime HCl 2,000 MG in Water for inj. (sterile) 20 ML IVP SCH (05:06)
[2019-04-25] MEDS: *HR* OxyCODONE Immed Rel 15 MG TABLET PO PRN ×2 (07:01→20:53)
[2019-04-25] MEDS: Lactobacillus 1 EACH CAP.SPRINK PO SCH (08:57)
[2019-04-25] MEDS: Insulin LISPRO 300 UNITS/3 ML VIAL SQ SCH ×4 (08:57→20:54)
[2019-04-25] MEDS: DilTIAZem CD (24hr) 240 MG CAP.ER.24H PO SCH (08:57)
[2019-04-25] MEDS: predniSONE 5 MG TABLET PO SCH ×2 (08:57→17:15)
[2019-04-25] MEDS: Ondansetron 4 MG/2 ML VIAL IVP SCH ×2 (08:57→17:14)
[2019-04-25] MEDS: Nystatin Cream 15 GM TUBE TP SCH ×3 (08:58→20:54)
[2019-04-25] MEDS ORDERED: Fluconazole 100 MG TABLET PO ONE (11:45)
[2019-04-25] MEDS ORDERED: Aminoglycoside Consult 1 EACH MC ONE (14:18)
[2019-04-25] MEDS: Amoxicillin 500 MG CAPSULE PO SCH (17:14)
[2019-04-25] MEDS ORDERED: Prochlorperazine 10 MG/2 ML VIAL IVP PRN ×2 (20:31→20:49)
[2019-04-25] MEDS: Gabapentin 100 MG CAPSULE PO SCH (20:53)
[2019-04-25] MEDS: Insulin DETEMIR 100 UNIT/ML X5UNITS SQ SCH (20:54)
[2019-04-26] MEDS: Amoxicillin 250 MG CHEWABLE TABLET PO SCH ×2 (00:24→07:58)
[2019-04-26] MEDS: Ondansetron 4 MG/2 ML VIAL IVP SCH ×2 (00:25→07:59)
[2019-04-26] MEDS: Amoxicillin 500 MG CAPSULE PO SCH (00:55)
[2019-04-26] MEDS: *HR* OxyCODONE ER (12 HR) 10 MG TABLET PO SCH (05:02)
[2019-04-26] MEDS: Lactobacillus 1 EACH CAP.SPRINK PO SCH (07:57)
[2019-04-26] MEDS: predniSONE 5 MG TABLET PO SCH (07:57)
[2019-04-26] MEDS: DilTIAZem CD (24hr) 240 MG CAP.ER.24H PO SCH (07:57)
[2019-04-26] MEDS: *HR* OxyCODONE Immed Rel 15 MG TABLET PO PRN (07:58)
[2019-04-26] MEDS: Insulin LISPRO 300 UNITS/3 ML VIAL SQ SCH ×2 (07:59→11:59)
[2019-04-26] MEDS ORDERED: Fluconazole 100 MG TABLET PO SCH (09:00)
[2019-04-26] MEDS: Nystatin Cream 15 GM TUBE TP SCH (10:46)
[2019-04-26 11:02] VITALS: BP 103/64
== END 2019-04-26 15:48 | disposition home health service (06) | DRG 699 ==
LOC: 2ANU 13:55 → EMEROOARM 13:55 → SUATTDRO 16:32 → 2ANU 16:55
PROVIDERS: ADMIT Internal Medicine; ATTEND Internal Medicine

== ENCOUNTER 2019-04-28 05:18 | Observation (INO) ==
[2019-04-28 06:04] LABS: Basophils % 0.3 %; Eosinophils # 0.1 K/mcL (0.0-0.6); Eosinophils % 1.3 %; Hematocrit 31.5 % (37.5-50.1); Hemoglobin 9.9 g/dL (12.9-16.9); Immature Granulocytes % 0.7 % (0-4); Lymphocytes # 0.7 K/mcL (0.6-4.6); Lymphocytes % 12.3 %; Mean Corpuscular HGB Conc 31.4 g/dL (31.6-35.5); Mean Corpuscular Hemoglobin 28.3 pg (28.0-33.3); Mean Platelet Volume 8.4 fL (9.4-12.4); Monocytes # 0.4 K/mcL (0.0-1.3); Monocytes % 5.8 %; Neutrophils # 4.8 K/mcL (1.6-8.9); Platelet Count 412 K/mcL (140-400); Red Cell Distribution Width 16.1 % (11.5-14.5); Segmented Neutrophils % 79.6 %
[2019-04-28 06:29] LABS: Albumin 3.5 g/dL (3.5-5.7); Albumin/Globulin Ratio 1.1 (1.1-2.2); Bilirubin,Total 0.3 mg/dL (0.3-1.0); Calcium 8.3 mg/dL (8.6-10.3); Globulin 3.2 g/dL (2.4-3.5); Potassium 4.5 mEq/L (3.5-5.1); Total Protein 6.7 g/dL (6.4-8.9)
[2019-04-28 06:58] LABS: Bilirubin,Urine Negative (Negative); Blood,Urine Large (Negative); Clarity,Urine Cloudy (Clear); Color,Urine Yellow (Yellow); Glucose,Urine (UA) 100 mg/dL (Normal); Ketones,Urine Trace mg/dL (Negative); Leukocyte Esterase,Urine Large (Negative); Nitrite,Urine Negative (Negative); PH,Urine 6.5 pH Units (5.0-8.0); Protein,Urine 100 mg/dL (Neg-Trace); Specific Gravity,Urine 1.019 (1.010-1.025); Urobilinogen,Urine Normal (Normal)
[2019-04-28 06:59] LABS: Bacteria,Urine None Seen per hpf (None-Few); Hyaline Casts,Urine None Seen per lpf (None-Few); Squamous Epithelial Cell,Urine None Seen per lpf (None-Few); WBC,Urine TNTC per hpf (0-3)
[2019-04-28 07:13] LABS: RBC,Urine 15-30 per hpf (0-3)
[2019-04-28 07:14] LABS: Yeast,Urine Few per hpf (None Seen)
[2019-04-28 07:57] LABS: INR 1.1
[2019-04-28 08:00] LABS: Activated Partial Thrombo Time 45.2 Seconds (26.0-36.0)
[2019-04-28] MEDS ORDERED: Naloxone 0.4 MG/ML INJ IVP PRN (09:20)
[2019-04-28] MEDS ORDERED: Dextrose Gel 15 GM/37.5 ML TUBE PO PRN ×2 (09:22)
[2019-04-28] MEDS ORDERED: *HR* Dextrose 50 % in Water (Syg) 50 ML SYRINGE IVP PRN (09:22)
[2019-04-28] MEDS ORDERED: D5% in Water 1,000 ML IVC PRN (09:22)
[2019-04-28] MEDS: *HR* OxyCODONE Immed Rel 5 MG TABLET PO PRN (10:03)
[2019-04-28] MEDS: DilTIAZem CD (24hr) 240 MG CAP.ER.24H PO SCH (11:07)
[2019-04-28] MEDS: Gabapentin 100 MG CAPSULE PO SCH (11:07)
[2019-04-28] MEDS: 0.9 % Sodium Chloride 1,000 ML IVC SCH (11:08)
[2019-04-28] MEDS: *HR* OxyCODONE ER (12 HR) 10 MG TABLET PO SCH ×2 (11:08→17:17)
[2019-04-28] MEDS: Fluconazole 200 MG/100 ML 200 MG/100 ML BAG IVPB SCH (11:09)
[2019-04-28] MEDS: Insulin LISPRO 300 UNITS/3 ML VIAL SQ SCH ×3 (12:28→20:19)
[2019-04-28] MEDS: *HR* Heparin 5,000 UNIT/ML VIAL SQ SCH ×2 (14:10→21:03)
[2019-04-28] MEDS: predniSONE 5 MG TABLET PO SCH (17:17)
[2019-04-28] MEDS: Ondansetron 4 MG/2 ML VIAL IVP PRN (17:25)
[2019-04-28] MEDS: Insulin DETEMIR 100 UNIT/ML X5UNITS SQ SCH (21:03)
[2019-04-29] MEDS: Ondansetron 4 MG/2 ML VIAL IVP PRN ×2 (02:42→16:47)
[2019-04-29] MEDS: *HR* OxyCODONE Immed Rel 5 MG TABLET PO PRN (03:21)
[2019-04-29 03:44] LABS: Basophils % 0.4 %; Eosinophils # 0.1 K/mcL (0.0-0.6); Hematocrit 29.9 % (37.5-50.1); Hemoglobin 9.2 g/dL (12.9-16.9); Immature Granulocytes % 0.8 % (0-4); Lymphocytes # 0.6 K/mcL (0.6-4.6); Lymphocytes % 12.6 %; Mean Corpuscular HGB Conc 30.8 g/dL (31.6-35.5); Mean Corpuscular Hemoglobin 27.6 pg (28.0-33.3); Mean Corpuscular Volume 89.8 fL (83.0-100.0); Mean Platelet Volume 8.3 fL (9.4-12.4); Monocytes # 0.3 K/mcL (0.0-1.3); Monocytes % 6.2 %; Neutrophils # 3.9 K/mcL (1.6-8.9); Platelet Count 431 K/mcL (140-400); Red Blood Count 3.33 M/mcL (4.19-5.50)
[2019-04-29 03:49] LABS: BUN/Creatinine Ratio 10 (6-26); Blood Urea Nitrogen 13 mg/dL (8-23); Calcium 7.6 mg/dL (8.6-10.3); Carbon Dioxide 26 mEq/L (23-29); Chloride 105 mEq/L (98-107); Glucose 153 mg/dL (70-105); Osmolality,Calculated 281 (280-300); Potassium 4.4 mEq/L (3.5-5.1); Sodium 134 mEq/L (136-145); eGFR For African Americans > 60 (> 60); eGFR For Non-African Americans 56 (> 60)
[2019-04-29] MEDS: *HR* Heparin 5,000 UNIT/ML VIAL SQ SCH ×3 (05:42→21:38)
[2019-04-29] MEDS: *HR* OxyCODONE ER (12 HR) 10 MG TABLET PO SCH ×2 (05:50→18:12)
[2019-04-29] MEDS: Gabapentin 100 MG CAPSULE PO SCH (08:22)
[2019-04-29] MEDS: DilTIAZem CD (24hr) 240 MG CAP.ER.24H PO SCH (08:22)
[2019-04-29] MEDS: Fluconazole 200 MG/100 ML 200 MG/100 ML BAG IVPB SCH (08:22)
[2019-04-29] MEDS: predniSONE 5 MG TABLET PO SCH ×2 (08:22→16:40)
[2019-04-29] MEDS: 0.9 % Sodium Chloride 1,000 ML IVC SCH (08:23)
[2019-04-29] MEDS: Insulin LISPRO 300 UNITS/3 ML VIAL SQ SCH ×4 (08:25→21:10)
[2019-04-29] MEDS: Insulin DETEMIR 100 UNIT/ML X5UNITS SQ SCH (21:09)
[2019-04-30 04:48] LABS: Hematocrit 29.5 % (37.5-50.1); Mean Corpuscular HGB Conc 30.5 g/dL (31.6-35.5); Mean Corpuscular Hemoglobin 27.2 pg (28.0-33.3); Mean Corpuscular Volume 89.1 fL (83.0-100.0); Mean Platelet Volume 8.3 fL (9.4-12.4); Platelet Count 406 K/mcL (140-400); Red Blood Count 3.31 M/mcL (4.19-5.50); Red Cell Distribution Width 15.9 % (11.5-14.5); White Blood Count 4.6 K/mcL (4.3-11.1)
[2019-04-30 05:13] LABS: BUN/Creatinine Ratio 12 (6-26); Blood Urea Nitrogen 16 mg/dL (8-23); Calcium 8.7 mg/dL (8.6-10.3); Carbon Dioxide 26 mEq/L (23-29); Chloride 103 mEq/L (98-107); Glucose 171 mg/dL (70-105); Osmolality,Calculated 285 (280-300); Potassium 4.1 mEq/L (3.5-5.1); Sodium 135 mEq/L (136-145); eGFR For African Americans > 60 (> 60); eGFR For Non-African Americans 51 (> 60)
[2019-04-30 05:24] LABS: Thyroid Stimulating Hormone 0.777 mcIU/mL (0.340-5.600)
[2019-04-30] MEDS: *HR* OxyCODONE ER (12 HR) 10 MG TABLET PO SCH (05:57)
[2019-04-30] MEDS: *HR* Heparin 5,000 UNIT/ML VIAL SQ SCH (05:57)
[2019-04-30 06:58] VITALS: BP 153/89
[2019-04-30] MEDS: Gabapentin 100 MG CAPSULE PO SCH (08:09)
[2019-04-30] MEDS: Fluconazole 200 MG/100 ML 200 MG/100 ML BAG IVPB SCH (08:09)
[2019-04-30] MEDS: DilTIAZem CD (24hr) 240 MG CAP.ER.24H PO SCH (08:09)
[2019-04-30] MEDS: predniSONE 5 MG TABLET PO SCH (08:09)
[2019-04-30] MEDS: Insulin LISPRO 300 UNITS/3 ML VIAL SQ SCH (08:10)
[2019-04-30] MEDS ORDERED: predniSONE 10 MG TABLET PO SCH (08:29)
[2019-04-30] MEDS ORDERED: Aminoglycoside Consult 1 EACH MC ONE (14:13)
== END 2019-04-30 14:14 | disposition home health service (06) ==
LOC: 3ANU 05:18 → EMEROOARM 05:18 → SUATTDRO 09:00 → 3ANU 10:00
PROVIDERS: ADMIT Family Medicine; ATTEND Internal Medicine